=== PATIENT | female | born 1960 | race Caucasian/White ===

== ENCOUNTER 2017-05-26 20:19 | Inpatient (IN) | payer MEDICARE, MEDICAID, SELFPAY ==
[2017-05-26 20:20] VITALS: BP 161/93; PULSE 98; RESP 16; TEMP 36.3; O2SAT 100; BMI 43.4
[2017-05-26 22:51] LABS: Absolute Lymphocyte Count 0.64 X10^3/ul (0.83-4.51); Absolute Neutrophil Count 6.9 X10^3/uL (2.0-7.7); Basophil# 0.01 X10^3/uL; Basophil% 0.1 % (0-1); Eosinophil# 0.05 X10^3/uL; Eosinophils% 0.6 % (0-5); Hematocrit 38.6 % (37-47); Hemoglobin 12.4 g/dl (12.0-15.0); Lymphocyte # 0.64 X10^3/ul (4.0); Lymphocyte % 7.9 % (19-41); Mean Corp Hgb Conc 32.1 g/gl (32-36); Mean Corpuscular Hgb 28.6 pg (27.0-32.0); Mean Corpuscular Volume 88.9 fL (81-99); Mean Platelet Vol. 10.5 fl (6.2-12.0); Monocyte# 0.45 X10^3/uL; Monocyte% 5.6 % (0-10); Neutrophil # 6.92 X10^3/uL (2.7-7.7); Neutrophil % 85.7 % (47-70); POSITIVE COUNT NO; POSITIVE DIFFERENTIAL NO; POSITIVE MORPHOLOGY NO; Platelet Count 312 K/mm3 (150-450); RBC Distribution Width CV 14.8 % (11.6-14.6); Red Blood Count 4.34 M/mm3 (4.2-5.4); White Blood Count 8.1 K/mm3 (4.4-11.0)
[2017-05-26] MEDS: Ondansetron 4 MG/2 ML Vial IV (22:52)
[2017-05-26] MEDS: 0.9% Normal Saline 1,000 ML 1000 ML IV (22:52)
[2017-05-26 23:13] LABS: Mucous, Urine 0 SEEN /hpf (<or=2+); Red Blood Cells-Urine 0 SEEN /hpf (0-5)
--- NOTE | 2017-05-26 23:15 | RAD_ITS ---
STUDY: X-RAY - ACUTE ABDOMINAL SERIES REASON FOR EXAM: Female, 56 years old. Abdominal pain TECHNIQUE: Single view of the chest. Supine, 7 view(s) of the abdomen were obtained. COMPARISON: None. FINDINGS: The lungs are clear and expanded. Normal size heart. Normal mediastinum and goran. Normal visualized pulmonary arteries. Normal visualized aortic arch and descending thoracic aorta. There is a loop of distended small bowel in the left mid abdominal area. Possible 3 cm calcific density in the lateral right upper quadrant over the right renal shadow. Bilateral hip prosthesis. RAD/Acute Abdomen Inc Chest IMPRESSION: Distended loop of small bowel in the left mid abdominal area. This may be a focal ileus. Follow-up is needed. Possible calcific density over the right renal shadow in the right upper quadrant. Electronically Signed: Peter Esteban DO at 23:45 EST Tel [phone], Service support ,
[2017-05-26 23:19] LABS: AST(SGOT) 14 U/L (15-37); Alanine Aminotransfer ALT/SGPT 12 U/L (13-56); Albumin, Serum 3.6 g/dL (3.2-5.0); Alkaline Phosphatase 183 U/L (45-117); Anion Gap 8 (5-15); BUN 9 mg/dL (7-18); BUN/Creat Ratio 12.1 RATIO (10-20); Bilirubin, Direct 0.14 mg/dL (0.00-0.30); Calcium,Total 8.9 mg/dL (8.5-10.1); Chloride 106 mmol/L (98-107); Creatinine, Serum 0.74 mg/dL (0.55-1.02); EST Glomerular Filtration Rate 86 mL/min (>60); Est Glom Filt Rate - Afr Amer 104 mL/min (>60); Estimated Creatinine Clearance 93.98 ml/min; Globulin 3.9 g/dL (2.2-4.2); Glucose 106 mg/dL (74-106); Lipase 59 U/L (73-393); Potassium 4.1 mmol/L (3.5-5.1); Protein, Total 7.5 g/dL (6.4-8.2); Sodium Level 140 mmol/L (136-145)
[2017-05-26 23:22] VITALS: RESP 17
--- NOTE | 2017-05-26 23:26 | ED.VISSUMM ---
- ER Visit Summary Date of Service: 05/26/17 Chief Complaint: Abdominal pain History of Present Illness: The patient is a [address] Neville Crowder III. She reports that she has abdominal pain that began today. It is a continuous sharp, stabbing pain that is 10 out of 10 at worst and 4 out of 10 currently. It is relieved by vomiting and worsened by nothing. She reports that she is vomited 3 times. No blood or emesis. She said one episode of diarrhea this morning. She reports she had a normal bowel movement this afternoon. No blood in her stools or black tarry stools. She has had decreased flatus. No dysuria or frequency. States she has had similar symptoms previously with small bowel obstruction. Patient reports that she has a history of an infected knee replacement and has been on doxycycline for the past 2 months. Physical Examination: Vitals: Stable. Afebrile. General: Well-nourished and well-developed. Head: Normocephalic atraumatic. Neck: Supple, no lymphadenopathy. No JVD. Nontender. Cardiovascular: Regular rate and rhythm. No murmurs. Respiratory: No respiratory distress. Clear to auscultation bilaterally. Abdominal: Soft, mild periumbilical tenderness to palpation, nondistended, hypoactive bowel sounds. No guarding, rebound, or peritoneal signs. No pain in the right upper or right lower quadrant specifically. Back: Nontender. Extremities: Nontender, no edema. Skin: Normal color, no rash. Neurologic: Alert and oriented ?3. Cranial nerves II through XII are intact. Normal strength and sensation. Psych: Normal affect. Test Results: CBC is remarkable for segment neutrophils of 86 leukocytes of 8. Chem-7 is normal. LFTs marked for alk phos of 183, ALT of 14, AST of 12. Lipase is normal. Three-view of the abdomen shows a distended loop of small bowel in the left mid abdomen question a focal ileus. Because of this a CT was obtained. IMPRESSION: Dilated fluid-filled small bowel loops noted with partial fecalization of the small bowel loops and collapse of the distal loops with a small amount of fluid in the small bowel mesentery as well as interloop fluid. Small bowel obstruction is a diagnostic consideration. Emergency Department Course and Treatment: Patient refused pain medications. She was given a dose of Zofran here and is resting comfortably. She refused an NG tube. Treatment Plan: The patient was discussed with Dr. Wallace. She will be admitted to the hospital for further evaluation and treatment. Disposition: Admitted in stable condition. Impression: 1. Small bowel obstruction. This note was generated with [employer] dictation software. It may contain incorrect words, spelling, and punctuation that were not noted in review of the chart prior to signing ED Disposition - Plan for ED Patient: Chief Complaint: Abd Pain Referrals: Neville Crowder III, MD [Primary Care Provider] -
[2017-05-26 23:46] LABS: Color, Urine Yellow (Yellow); Glucose, Dipstick Normal (Normal); Ketone-Dipstick 50 mg/dl (Negative); Leukocyte Esterase-Dipstick 25 /ul (Negative); Nitrite-Dipstick Negative (Negative); Occult Blood-Urine Negative /ul (Negative); Protein-Dipstick 15 mg/dl (Negative); Urine Bilirubin Dipstick Negative (Negative); Urine Clarity Clear (Clear); Urine Urobilinogen Normal (Normal)
[2017-05-26 23:52] LABS: Bacteria RARE /hpf (None Seen); Squamous Epithelial Cells - UA 0-5 SEEN /hpf (5-10); White Blood Cells 0-5 SEEN /hpf (0-5)
[2017-05-27] VITALS (7 sets, daily range): BP systolic 107–148; BP diastolic 65–82; PULSE 84–96; RESP 16–18; TEMP 36.6–37; O2SAT 97–99; BMI 42.9
[2017-05-27] MEDS: Ondansetron 4 MG/2 ML Vial IV ×2 (01:41→09:35)
--- NOTE | 2017-05-27 02:19 | PCM.HP.STD ---
Problem List (1) PERIPROSTETIC KNEE INFECTION Status: Chronic Comment: PSEUDOMONAS (2) Depression Status: Chronic (3) Osteoarthritis Status: Chronic (4) Status post bilateral knee replacements Status: Chronic (5) Venous insufficiency Status: Chronic (6) Morbid obesity Status: Chronic (7) Status post bilateral hip replacements Status: Chronic History of Present Illness Date of Admission: 05/27/17 Chief Complaint: Abdominal pain. The patient is a 56 year old F with past medical history as mentioned above presented to the emergency room because of abdominal pain. Her symptoms started today with mid abdominal pain, sharp pain, intermittent, 10 out of 10 in severity, not radiating, associated with nausea and vomiting and without aggravating or relieving factors. She reported mild diarrhea, couple of times today. She denies constipation. She has been passing flatus. She has a history of hernia repair last year and she had one episode of bowel obstruction after surgery. In the emergency room, initial blood pressure was slightly elevated but improved, other vital signs are stable. Routine blood work was unremarkable. LFT revealed slightly elevated alkaline phosphatase, otherwise normal. Lipase was normal. Urinalysis revealed no evidence of UTI. X-ray abdomen revealed distended loops of small bowel. CT scan abdomen and pelvis without contrast revealed findings consistent with small bowel obstruction. She is being admitted for acute small bowel obstruction Past Medical History Past Medical History (Chronic Problems): Chronic Problems Insomnia (Chronic) PERIPROSTETIC KNEE INFECTION (Chronic) PSEUDOMONAS Depression (Chronic) Osteoarthritis (Chronic) Status post bilateral knee replacements (Chronic) Venous insufficiency (Chronic) Morbid obesity (Chronic) Status post bilateral hip replacements (Chronic) Allergies No Known Allergies Allergy (Verified 05/26/17 20:23) Home Medications: Ambulatory Orders Medication Instructions Recorded Fluoxetine [Prozac] 20 mg PO DAILY 11/22/16 BuPROPion (XL) [Wellbutrin Xl] 150 mg PO DAILY 01/12/17 Cyclobenzaprine [Flexeril] 10 mg PO TID PRN PRN tablet 01/12/17 Furosemide [Lasix] 20 mg PO DAILY PRN 03/27/17 Iron Polysaccharide Complex 150 mg PO DAILYCM 03/27/17 [Ferrex 150] Menthol/Lanolin/Calamine/Znox 1 applic TOPICAL TID 03/27/17 [Calmoseptine Ointment] Temazepam [Restoril] 15 mg PO QHS PRN PRN 03/27/17 Doxycycline 100 mg PO BID 30 Days #0 capsule 04/12/17 Surgical History: total hip arthroplasty - Bilateral., total knee arthroplasty - Bilateral., - - R ankle ORIF, 2 C-sections, tubal ligation, on initial laparoscopic incisional hernia repair, recurrent open complex hernia repair with removal of previous mesh and partial omentectomy, Explant right total knee with placement of cement spacer. 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 Smoking Status: Never smoker Alcohol: None Drugs: None - *Family History Maternal History Items: - - thyroid disease Paternal History Items: Heart Disease Review of Systems Constitutional: Denies: Anorexia, Chills, Fever, Weakness Eyes: Denies: Blurred vision, Double vision, Drainage, Redness HEENT: Denies: Difficulty Hearing, Ear Pain, Eye Pain, Nasal Congestion, Sore Throat Cardiovascular: Denies: Chest Pain, Chest Pressure, Chest Tightness, Edema, Heaviness, Palpitations, Syncope Respiratory: Denies: Cough, Pleuritic Pain, Shortness of Breath, Sputum production, Wheezing Gastrointestinal: Reports: Abdominal Pain, Diarrhea, Nausea, Vomiting. Denies: Constipation, Hematochezia, Melena Genitourinary: Denies: Dysuria, Frequency, Hematuria Musculoskeletal: Denies: Arm Pain, Back Pain, Foot Pain Skin: Denies: Dryness, Rash Neurological: Denies: Balance problems, Double vision, Change in Speech, Slurred speech, Confusion, Headaches, Incoordination Psychiatric: Reports: Depression. Denies: Anxiety Endocrine: Denies: Change in Body Habitus VTE Information - Inpt Only VTE Present on Admission: No VTE Mechan Device Prophylaxis: None VTE Pharm Prophylaxis ordered?: Yes - Physical Exam General: Alert, Oriented x3, Cooperative HEENT: Atraumatic, PERRLA, EOMI Oral: Moist Mucosa, No Gingival or Mucosal Lesions/ Ulcerations Neck: Supple, No JVD, Negative Carotid Bruits, Trachea Midline, Thyroid Normal Size and Texture Lungs: Clear to auscultation, Normal air movement, No rhonchi, No wheeze, No rales Cardiovascular: Regular rate, Regular Rhythm, Normal S1, Normal S2, PMI Normal Abdomen: Soft, Non Tender, No Hepato-splenomegaly, Hypoactive Bowel Sounds, Distended, Obese Extremities: No clubbing, No cyanosis, No edema Skin: No rashes, No breakdown Lymphatic: No Cervical, Supraclavicular, or Inguinal Adenopathy Neurological: Cranial nerves II-XII grossly intact, Motor Exam 5/5 strength throughout Psych/Mental Status: Flat Affect, Alert and oriented to time, place, person, mood and affect Vital Signs Temp Pulse Resp BP Pulse Ox 97.3 F L 95 17 148/82 H 97 05/26/17 20:20 05/27/17 01:57 05/27/17 01:57 05/27/17 01:57 05/27/17 01:57 Laboratory Tests 05/26/17 05/26/17 05/26/17 Range/Units 23:05 22:10 22:10 WBC 8.1 (4.4-11.0) K/mm3 RBC 4.34 (4.2-5.4) M/mm3 Hgb 12.4 (12.0-15.0) g/dl Hct 38.6 (37-47) % MCV 88.9 (81-99) fL MCH 28.6 (27.0-32.0) pg MCHC 32.1 (32-36) g/gl RDW 14.8 H (11.6-14.6) % RDW Differential 48.0 H (35.1-43.9) fl Plt Count 312 (150-450) K/mm3 MPV 10.5 (6.2-12.0) fl Immature Gran % (Auto) 0.100 (0.0-0.9) % Neut % (Auto) 85.7 H (47-70) % Lymph % (Auto) 7.9 L (19-41) % [place] % (Auto) 5.6 (0-10) % Eos % (Auto) 0.6 (0-5) % Baso % (Auto) 0.1 (0-1) % Absolute Neuts (auto) 6.9 (2.0-7.7) X10^3/uL Absolute Lymphs (auto) 0.64 L (0.83-4.51) X10^3/ul Total Counted Not Reportable Sodium 140 (136-145) mmol/L Potassium 4.1 (3.5-5.1) mmol/L Chloride 106 (98-107) mmol/L Carbon Dioxide 26.0 (21.0-32.0) mmol/L Anion Gap 8 (5-15) BUN 9 (7-18) mg/dL Creatinine 0.74 (0.55-1.02) mg/dL Estim Creat Clear Calc 93.98 ml/min Est GFR (MDRD) Af Amer 104 (>60) mL/min Est GFR (MDRD) Non-Af 86 (>60) mL/min BUN/Creatinine Ratio 12.1 (10-20) RATIO Glucose 106 (74-106) mg/dL Calcium 8.9 (8.5-10.1) mg/dL Total Bilirubin 0.60 (0.20-1.00) mg/dL Direct Bilirubin 0.14 (0.00-0.30) mg/dL AST 14 L (15-37) U/L ALT 12 L (13-56) U/L Alkaline Phosphatase 183 H (45-117) U/L Total Protein 7.5 (6.4-8.2) g/dL Albumin 3.6 (3.2-5.0) g/dL Globulin 3.9 (2.2-4.2) g/dL Lipase 59 L (73-393) U/L Urine Color Yellow (Yellow) Urine Clarity Clear (Clear) Urine pH 7.0 (5.0 - 8.0) Ur Specific [place] 1.010 (1.002-1.030) Urine Protein 15 H (Negative) mg/dl Urine Glucose (UA) Normal (Normal) mg/dl Urine Ketones 50 H (Negative) mg/dl Urine Occult Blood Negative (Negative) /ul Urine Nitrite Negative (Negative) Urine Bilirubin Negative (Negative) mg/dL Urine Urobilinogen Normal (Normal) mg/dl Ur Leukocyte Esterase 25 H (Negative) /ul Urine RBC 0 SEEN (0-5) /hpf Urine WBC 0-5 SEEN (0-5) /hpf Ur Squamous Epith Cells 0-5 SEEN (5-10) /hpf Urine Bacteria RARE (None Seen) /hpf Urine Mucus 0 SEEN (<or=2+) /hpf Clinical Impression(s) from Imaging Studies Acute Abdomen Series 05/26/17 23:15 IMPRESSION: Distended loop of small bowel in the left mid abdominal area. This may be a focal ileus. Follow-up is needed. Possible calcific density over the right renal shadow in the right upper quadrant. Electronically Signed: Peter Esteban DO at 23:45 EST Tel [phone], Service support , Abdomen/Pelvis CT 05/27/17 23:54 ADDENDUM: 05/27/17 0059 Assessment/Plan This is a 56 years old female patient presented to the medicine because of abdominal pain with nausea and vomiting, found to have small bowel obstruction on CT scan abdomen and pelvis. #1 small bowel obstruction: In context of history of hernia repair last year which followed by bowel obstruction ?1. This is likely because of adhesions. CT scan abdomen and pelvis reviewed as well as x-ray abdomen. Vital signs are stable. Serum electrolytes are unremarkable. Plan: Admit to [facility] floor, keep on n.p.o., IV fluids, IV antiemetics, replace electrolytes as appropriate, repeat CMP tomorrow morning, general surgery consult. Patient refused narcotics for pain control. 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 Plan to continue doxycycline. #3 osteoarthritis: Tylenol as needed. #4 depression: Continue Wellbutrin. #6 DVT prophylaxis: Subcu Lovenox. This note was generated with [employer] dictation software. It may contain incorrect words, spelling, and punctuation that were not noted in checking the note before signing. Code Visit Inpatient E&M: 70058 Init Hosp L3
--- NOTE | 2017-05-27 02:28 | HP.PCM_ITS ---
Problem List (1) PERIPROSTETIC KNEE INFECTION Status: Chronic Comment: PSEUDOMONAS (2) Depression Status: Chronic (3) Osteoarthritis Status: Chronic (4) Status post bilateral knee replacements Status: Chronic (5) Venous insufficiency Status: Chronic (6) Morbid obesity Status: Chronic (7) Status post bilateral hip replacements Status: Chronic History of Present Illness Date of Admission: 05/27/17 Chief Complaint: Abdominal pain. The patient is a 56 year old F with past medical history as mentioned above presented to the emergency room because of abdominal pain. Her symptoms started today with mid abdominal pain, sharp pain, intermittent, 10 out of 10 in severity, not radiating, associated with nausea and vomiting and without aggravating or relieving factors. She reported mild diarrhea, couple of times today. She denies constipation. She has been passing flatus. She has a history of hernia repair last year and she had one episode of bowel obstruction after surgery. In the emergency room, initial blood pressure was slightly elevated but improved, other vital signs are stable. Routine blood work was unremarkable. LFT revealed slightly elevated alkaline phosphatase, otherwise normal. Lipase was normal. Urinalysis revealed no evidence of UTI. X-ray abdomen revealed distended loops of small bowel. CT scan abdomen and pelvis without contrast revealed findings consistent with small bowel obstruction. She is being admitted for acute small bowel obstruction Past Medical History Past Medical History (Chronic Problems): Chronic Problems Insomnia (Chronic) PERIPROSTETIC KNEE INFECTION (Chronic) PSEUDOMONAS Depression (Chronic) Osteoarthritis (Chronic) Status post bilateral knee replacements (Chronic) Venous insufficiency (Chronic) Morbid obesity (Chronic) Status post bilateral hip replacements (Chronic) Allergies No Known Allergies Allergy (Verified 05/26/17 20:23) Home Medications: Ambulatory Orders Medication Instructions Recorded Fluoxetine [Prozac] 20 mg PO DAILY 11/22/16 BuPROPion (XL) [Wellbutrin Xl] 150 mg PO DAILY 01/12/17 Cyclobenzaprine [Flexeril] 10 mg PO TID PRN PRN tablet 01/12/17 Furosemide [Lasix] 20 mg PO DAILY PRN 03/27/17 Iron Polysaccharide Complex 150 mg PO DAILYCM 03/27/17 [Ferrex 150] Menthol/Lanolin/Calamine/Znox 1 applic TOPICAL TID 03/27/17 [Calmoseptine Ointment] Temazepam [Restoril] 15 mg PO QHS PRN PRN 03/27/17 Doxycycline 100 mg PO BID 30 Days #0 capsule 04/12/17 Surgical History: total hip arthroplasty - Bilateral., total knee arthroplasty - Bilateral., - - R ankle ORIF, 2 C-sections, tubal ligation, on initial laparoscopic incisional hernia repair, recurrent open complex hernia repair with removal of previous mesh and partial omentectomy, Explant right total knee with placement of cement spacer. Psychiatric History: Anxiety, Depression [employer] History: No pertinent [employer] history Smoking Status: Never smoker Alcohol: None Drugs: None - *Family History Maternal History Items: - - thyroid disease Paternal History Items: Heart Disease Review of Systems Constitutional: Denies: Anorexia, Chills, Fever, Weakness Eyes: Denies: Blurred vision, Double vision, Drainage, Redness HEENT: Denies: Difficulty Hearing, Ear Pain, Eye Pain, Nasal Congestion, Sore Throat Cardiovascular: Denies: Chest Pain, Chest Pressure, Chest Tightness, Edema, Heaviness, Palpitations, Syncope Respiratory: Denies: Cough, Pleuritic Pain, Shortness of Breath, Sputum production, Wheezing Gastrointestinal: Reports: Abdominal Pain, Diarrhea, Nausea, Vomiting. Denies: Constipation, Hematochezia, Melena Genitourinary: Denies: Dysuria, Frequency, Hematuria Musculoskeletal: Denies: Arm Pain, Back Pain, Foot Pain Skin: Denies: Dryness, Rash Neurological: Denies: Balance problems, Double vision, Change in Speech, Slurred speech, Confusion, Headaches, Incoordination Psychiatric: Reports: Depression. Denies: Anxiety Endocrine: Denies: Change in Body Habitus VTE Information - Inpt Only VTE Present on Admission: No VTE Mechan Device Prophylaxis: None VTE Pharm Prophylaxis ordered?: Yes - Physical Exam General: Alert, Oriented x3, Cooperative HEENT: Atraumatic, PERRLA, EOMI Oral: Moist Mucosa, No Gingival or Mucosal Lesions/ Ulcerations Neck: Supple, No JVD, Negative Carotid Bruits, Trachea Midline, Thyroid Normal Size and Texture Lungs: Clear to auscultation, Normal air movement, No rhonchi, No wheeze, No rales Cardiovascular: Regular rate, Regular Rhythm, Normal S1, Normal S2, PMI Normal Abdomen: Soft, Non Tender, No Hepato-splenomegaly, Hypoactive Bowel Sounds, Distended, Obese Extremities: No clubbing, No cyanosis, No edema Skin: No rashes, No breakdown Lymphatic: No Cervical, Supraclavicular, or Inguinal Adenopathy Neurological: Cranial nerves II-XII grossly intact, Motor Exam 5/5 strength throughout Psych/Mental Status: Flat Affect, Alert and oriented to time, place, person, mood and affect Vital Signs Temp Pulse Resp BP Pulse Ox 97.3 F L 95 17 148/82 H 97 05/26/17 20:20 05/27/17 01:57 05/27/17 01:57 05/27/17 01:57 05/27/17 01:57 Laboratory Tests 3 05/26/17 05/26/17 05/26/17 Range/Units 23:05 22:10 22:10 WBC 8.1 (4.4-11.0) K/mm3 RBC 4.34 (4.2-5.4) M/mm3 Hgb 12.4 (12.0-15.0) g/dl Hct 38.6 (37-47) % MCV 88.9 (81-99) fL MCH 28.6 (27.0-32.0) pg MCHC 32.1 (32-36) g/gl RDW 14.8 H (11.6-14.6) % RDW Differential 48.0 H (35.1-43.9) fl Plt Count 312 (150-450) K/mm3 MPV 10.5 (6.2-12.0) fl Immature Gran % (Auto) 0.100 (0.0-0.9) % Neut % (Auto) 85.7 H (47-70) % Lymph % (Auto) 7.9 L (19-41) % [place] % (Auto) 5.6 (0-10) % Eos % (Auto) 0.6 (0-5) % Baso % (Auto) 0.1 (0-1) % Absolute Neuts (auto) 6.9 (2.0-7.7) X10^3/uL Absolute Lymphs (auto) 0.64 L (0.83-4.51) X10^3/ul Total Counted Not Reportable Sodium 140 (136-145) mmol/L Potassium 4.1 (3.5-5.1) mmol/L Chloride 106 (98-107) mmol/L Carbon Dioxide 26.0 (21.0-32.0) mmol/L Anion Gap 8 (5-15) BUN 9 (7-18) mg/dL Creatinine 0.74 (0.55-1.02) mg/dL Estim Creat Clear Calc 93.98 ml/min Est GFR (MDRD) Af Amer 104 (>60) mL/min Est GFR (MDRD) Non-Af 86 (>60) mL/min BUN/Creatinine Ratio 12.1 (10-20) RATIO Glucose 106 (74-106) mg/dL Calcium 8.9 (8.5-10.1) mg/dL Total Bilirubin 0.60 (0.20-1.00) mg/dL Direct Bilirubin 0.14 (0.00-0.30) mg/dL AST 14 L (15-37) U/L ALT 12 L (13-56) U/L Alkaline Phosphatase 183 H (45-117) U/L Total Protein 7.5 (6.4-8.2) g/dL Albumin 3.6 (3.2-5.0) g/dL Globulin 3.9 (2.2-4.2) g/dL Lipase 59 L (73-393) U/L Urine Color Yellow (Yellow) Urine Clarity Clear (Clear) Urine pH 7.0 (5.0 - 8.0) Ur Specific [place] 1.010 (1.002-1.030) Urine Protein 15 H (Negative) mg/dl Urine Glucose (UA) Normal (Normal) mg/dl Urine Ketones 50 H (Negative) mg/dl Urine Occult Blood Negative (Negative) /ul Urine Nitrite Negative (Negative) Urine Bilirubin Negative (Negative) mg/dL Urine Urobilinogen Normal (Normal) mg/dl Ur Leukocyte Esterase 25 H (Negative) /ul Urine RBC 0 SEEN (0-5) /hpf Urine WBC 0-5 SEEN (0-5) /hpf Ur Squamous Epith Cells 0-5 SEEN (5-10) /hpf Urine Bacteria RARE (None Seen) /hpf Urine Mucus 0 SEEN (<or=2+) /hpf Clinical Impression(s) from Imaging Studies Acute Abdomen Series 05/26/17 23:15 IMPRESSION: Distended loop of small bowel in the left mid abdominal area. This may be a focal ileus. Follow-up is needed. Possible calcific density over the right renal shadow in the right upper quadrant. Electronically Signed: Peter Esteban DO at 23:45 EST Tel [phone], Service support , Abdomen/Pelvis CT 05/27/17 23:54 ADDENDUM: 05/27/17 0059 Assessment/Plan This is a 56 years old female patient presented to the medicine because of abdominal pain with nausea and vomiting, found to have small bowel obstruction on CT scan abdomen and pelvis. #1 small bowel obstruction: In context of history of hernia repair last year which followed by bowel obstruction ?1. This is likely because of adhesions. CT scan abdomen and pelvis reviewed as well as x-ray abdomen. Vital signs are stable. Serum electrolytes are unremarkable. Plan: Admit to [facility] floor, keep on n.p.o., IV fluids, IV antiemetics, replace electrolytes as appropriate, repeat CMP tomorrow morning, general surgery consult. Patient refused narcotics for pain control. 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 Plan to continue doxycycline. #3 osteoarthritis: Tylenol as needed. #4 depression: Continue Wellbutrin. #6 DVT prophylaxis: Subcu Lovenox. This note was generated with [employer] dictation software. It may contain incorrect words, spelling, and punctuation that were not noted in checking the note before signing. Code Visit Inpatient E&M: 67582 Init Hosp L3
[2017-05-27] MEDS: 0.9% Normal Saline 1,000 ML 100 ML IV ×3 (02:54→23:54)
[2017-05-27] MEDS: Enoxaparin 40 MG/0.4 ML Syringe SC (07:00)
--- NOTE | 2017-05-27 08:31 | CT_ITS ---
STUDY: CT ABDOMEN AND PELVIS WITH CONTRAST REASON FOR EXAM: Female, 56 years old. Mid abdominal pain with nausea and vomiting. History of small bowel obstruction. RADIATION DOSAGE (If Supplied By Facility): CTDIvol = ( 22.90 ) mGy, DLP = ( 1659.36 ) mGycm TECHNIQUE: Transaxial images were obtained from the dome of the diaphragm to the symphysis pubis with oral contrast. 100mL ml of Isovue 300 contrast was administered. Sagittal and coronal images were reconstructed. Individualized dose optimization techniques were used for this CT. COMPARISON: Comparison is made with prior examination done earlier in the day. FINDINGS: Minimal degree of bibasilar linear atelectasis. Focal calcified right anterior pleural plaque. Stable trace pericardial fluid. Normal liver. Small amount of perihepatic fluid. I suspect tiny layering gallstones along the dependent wall of the gallbladder lumen. Normal spleen. Normal pancreas. Normal bilateral adrenal glands. Normal right kidney. Normal left kidney. There is a small hiatal hernia. There is evidence of fluid filled mild distention of the small bowel. The transition point appears to be in the distal ileum. There are multiple colonic diverticula consistent with diverticulosis. There is evidence of edematous changes of the right hemicolon with irregular mural thickening. The appendix is visualized and appears normal. Normal abdominal aorta. Normal inferior vena cava. Normal retroperitoneum. Normal urinary bladder. Normal abdominal wall. There are diffuse degenerative changes of the visualized lumbar spine. Bilateral total hip replacement. CT/Abdomen/Pelvis WITH Contrast IMPRESSION: Stable appearance of the dilated small bowel with transition point in the region of the distal ileum. There is evidence of thickening of the right hemicolon with findings suggestive of a colitis. Small amount of perihepatic fluid. Electronically Signed: Sher Gu MD at 11:39 EST Tel [phone], Service support ,
[2017-05-27] MEDS: FLUoxetine 20 MG Capsule PO (08:37)
[2017-05-27] MEDS: Iron Polysaccharide Complex 150 MG CAPSULE PO (08:37)
[2017-05-27] MEDS: Doxycycline 100 MG CAPSULE PO ×2 (08:37→22:46)
[2017-05-27] MEDS: 0.9% NaCl Peripheral Flush Adult/Peds IV ×2 (09:35→11:40)
[2017-05-27] MEDS: Acetaminophen 325 MG Tablet 650 MG PO ×2 (11:43→22:46)
--- NOTE | 2017-05-27 16:10 | PCM.PN.BLA ---
Progress Note The patient was admitted earlier today by Dr. Jones and I reviewed his H&P. I also saw the patient, evaluated her and obtained relevant history, performed a clinical exam reviewed diagnostic data. This is a 56 years old female patient presented to the ED because of abdominal pain with nausea and vomiting, she is found to have small bowel obstruction on CT scan abdomen and pelvis. she is Improving, she is to undergo small bowel series today.
--- NOTE | 2017-05-27 18:28 | PCM.CONS.GEN ---
Problem List (1) Small bowel obstruction due to adhesions Status: Acute Reason for Consult Date of Consultation: 05/27/17 History of Present Illness: The patient is a 56 year old F who was admitted to the [facility] on May 27, 2017 with findings consistent with small bowel obstruction. I have been asked by Dr. Wallace to provide surgical consultation and a electronic copy of my report will be returned to him. The patient presents with acute onset of severe crampy abdominal pain. She has had some nausea and vomiting. This was similar to an episode approximately 1 year ago when she was admitted with a partial small bowel obstruction. Her previous history is notable for an approximately 2009 having had a laparoscopic ventral hernia repair performed at [facility]. The patient then states since that time she had recurrence of her hernia and that Dr. Wilde perform an open repair with placement of mesh. The patient was admitted last year with a small bowel obstruction but that resolved conservatively. Unfortunately the patient has had bilateral hip and knee procedures most recently with a Pseudomonas right knee infection that required treatment with placement of a suture. She finally in March had her right knee re-replaced. She denies acute deep venous thrombosis. She had a noncontrasted CT on presentation and then a CT was repeated. This demonstrates some mild ascitic fluid around the liver. She has got partial small bowel obstruction with a transition point in the distal ileum. It is of note that subsequent to the CT with contrast that she had earlier today she had several liquid stools and now she is absolutely completely pain-free. She has no current concerns. Past Medical History Past Medical History (Chronic Problems): Chronic Problems Insomnia (Chronic) PERIPROSTETIC KNEE INFECTION (Chronic) PSEUDOMONAS Depression (Chronic) Osteoarthritis (Chronic) Status post bilateral knee replacements (Chronic) Venous insufficiency (Chronic) Morbid obesity (Chronic) Status post bilateral hip replacements (Chronic) Allergies No Known Allergies Allergy (Verified 05/26/17 20:23) Home Medications: Ambulatory Orders Medication Instructions Recorded Fluoxetine [Prozac] 20 mg PO DAILY 11/22/16 BuPROPion (XL) [Wellbutrin Xl] 150 mg PO DAILY 01/12/17 Cyclobenzaprine [Flexeril] 10 mg PO TID PRN PRN tablet 01/12/17 Furosemide [Lasix] 20 mg PO DAILY PRN 03/27/17 Iron Polysaccharide Complex 150 mg PO DAILYCM 03/27/17 [Ferrex 150] Menthol/Lanolin/Calamine/Znox 1 applic TOPICAL TID 03/27/17 [Calmoseptine Ointment] Temazepam [Restoril] 15 mg PO QHS PRN PRN 03/27/17 Doxycycline 100 mg PO BID 30 Days #0 capsule 04/12/17 Surgical History: total hip arthroplasty - Bilateral., total knee arthroplasty - Bilateral., - - R ankle ORIF, 2 C-sections, tubal ligation, on initial laparoscopic incisional hernia repair, recurrent open complex hernia repair with removal of previous mesh and partial omentectomy, Explant right total knee with placement of cement spacer. Psychiatric History: Anxiety, Depression [employer] History: No pertinent [employer] history Smoking Status: Never smoker Alcohol: None Drugs: None - *Family History Maternal History Items: - - thyroid disease Paternal History Items: Heart Disease Review of Systems Constitutional: Denies: Anorexia Eyes: Denies: Blurred vision HEENT: Denies: Difficulty Hearing Cardiovascular: Denies: Chest Pain Respiratory: Denies: Cough Gastrointestinal: Denies: Abdominal Pain Genitourinary: Denies: Dysuria Neurological: Denies: Change in Speech Patient Problems: Active and Suspected Problems Small bowel obstruction due to adhesions (Acute) - Physical Exam General: Alert, Oriented x3, Cooperative, No apparent distress HEENT: Atraumatic Oral: Moist Mucosa Neck: Supple Lungs: Clear to auscultation Cardiovascular: Regular rate Abdomen: Non Tender, Hypoactive Bowel Sounds, Distended - Well-healed vertical midline incision extending from the xiphoid to below the umbilicus Extremities: - - Tender Neurological: Cranial nerves II-XII grossly intact Vital Signs Temp Pulse Resp BP Pulse Ox 97.9 F 84 18 107/65 98 05/27/17 14:55 05/27/17 14:55 05/27/17 14:55 05/27/17 14:55 05/27/17 14:55 Oxygen Delivery Method Room Air Weight: 299 lb 2.676 oz Body Mass Index (BMI) 42.9 Intake and Output for Last 24 Hours 05/25/17 05/26/17 05/27/17 23:59 23:59 23:59 Intake Total 1406 / 1406 Output Total 400 / 400 Balance 1006 / 1006 Assessment/Plan Active and Suspected Problems Small bowel obstruction due to adhesions (Acute) I believe that the contrasted CT performed with Gastrografin likely has assisted with improvement in her partial small bowel obstruction. Clinically at the moment she has absolutely no complaints of pain. She is passing liquid stool. I recommend that we initiate clear liquids at this setting. She has had an opportunity to ask and have questions answered. She was already asking if she can go home. I will provide follow-up early in the morning. We will then advance her diet as tolerated. If she continues to make good improvement then I would think that she could be discharged. She has had 2 previous mesh repairs of ventral hernias. It is likely that her current episode of partial obstruction secondary to adhesions. No surgical intervention is anticipated at this time unless her symptoms recur or worsen. I appreciate the opportunity of assisting with her surgical care. Miguel Angel Crowder M.D., F.A.C.S.
[2017-05-27] MEDS: Temazepam 15 MG Capsule PO (22:46)
--- NOTE | 2017-05-27 23:54 | CT_ITS ---
STUDY: CT ABDOMEN AND PELVIS WITHOUT CONTRAST REASON FOR EXAM: Female, 56 years old. Mid abdominal pain, nausea and diarrhea RADIATION DOSAGE (If Supplied By Facility): CTDIvol = ( 21.37 ) mGy, DLP = ( 1126.29 ) mGycm TECHNIQUE: Transaxial images were obtained from the dome of the diaphragm to the symphysis pubis without oral contrast, and without intravenous contrast. Sagittal and coronal images were reconstructed. Individualized dose optimization techniques were used for this CT. COMPARISON: None. FINDINGS: The lung bases demonstrate no evidence for consolidation. Small pleural-based nodule in the right lower lobe noted measuring approximately 6 mm which can be assessed with dedicated chest CT. Pleural-based calcifications are also seen. There is subsegmental atelectasis in the scarring in the right lingula also seen. Small nodule in this region is not excluded. Trace amount of pericardial fluid noted. Bilateral hip prostheses. Trace amount of free fluid in the pelvis The uterus appears prominent in size not well characterized due to extensive beam hardening from patient's hip prostheses. Small hiatal hernia. Liver and spleen demonstrate no discrete mass. The pancreas are grossly within normal limits. Gallbladder is nondistended. Small gallstone versus peripheral calcifications of the gallbladder wall along the dependent segment Adrenal glands are within normal limits. Kidney appears somewhat atrophic Dilated fluid-filled small bowel loops noted with partial fecalization of the small bowel loops and collapse of the distal loops with a small amount of fluid in the small bowel mesentery as well as interloop fluid. Small bowel obstruction is a diagnostic consideration. Fibrofatty infiltration of the colonic loops noted which is nonspecific however can be seen in the setting of colitis. No free intraperitoneal air is identified. Small fat-containing umbilical hernia. Colonic diverticulosis Degenerative changes in the lumbar spine as well as the lower thoracic spine IMPRESSION: Dilated fluid-filled small bowel loops noted with partial fecalization of the small bowel loops and collapse of the distal loops with a small amount of fluid in the small bowel mesentery as well as interloop fluid. Small bowel obstruction is a diagnostic consideration. No free intraperitoneal air is identified. Incidental small lung nodules in right lower lobe which can be assessed with follow-up chest CT on a nonemergent basis. Please see above mentioned incidental findings in the body of the report N.B. : The above information has been verbally conveyed by Oscar cordoba , Covering Physician, on 05/27/2017 00:51:54 (ET). Electronically Signed: Oscar Woods, at 0:51 EST Tel , Service support , N.B. : The above information has been verbally conveyed by Oscar cordoba , Covering Physician, on 05/27/2017 00:51:54 (ET). CT/Abdomen/Pelvis without Cont
[2017-05-28 04:20] VITALS: BP 122/64; PULSE 92; RESP 16; TEMP 36.9; O2SAT 95
--- NOTE | 2017-05-28 06:03 | PCM.PN.SRG ---
Patient Problems: Active and Suspected Problems Small bowel obstruction due to adhesions (Acute) Subjective: Pt has had multiple stools yesterday No nausea or pain - Physical Exam Abdomen: Bowel Sounds Present, Soft, Non Tender Vital Signs Temp Pulse Resp BP Pulse Ox 98.4 F 92 16 122/64 H 95 05/28/17 04:20 05/28/17 04:20 05/28/17 04:20 05/28/17 04:20 05/28/17 04:20 Oxygen Delivery Method Room Air Weight: 299 lb 2.676 oz Body Mass Index (BMI) 42.9 Intake and Output for Last 24 Hours 05/26/17 05/27/17 05/28/17 23:59 23:59 23:59 Intake Total 1406 / 1406 855 / 855 Output Total 400 / 400 Balance 1006 / 1006 855 / 855 Assessment/Plan Active and Suspected Problems Small bowel obstruction due to adhesions (Acute) BS activity has returned Will advance diet Pt appears ready for discharge No surgical intervention is planned at this time
[2017-05-28] MEDS: Acetaminophen 325 MG Tablet 650 MG PO (07:11)
[2017-05-28] MEDS: Enoxaparin 40 MG/0.4 ML Syringe SC (07:12)
[2017-05-28 07:26] LABS: ALB/GLOB Ratio 0.8 RATIO (0.9-2.4); AST(SGOT) 13 U/L (15-37); Alanine Aminotransfer ALT/SGPT 9 U/L (13-56); Albumin, Serum 2.7 g/dL (3.2-5.0); Alkaline Phosphatase 127 U/L (45-117); Anion Gap 9 (5-15); BUN 5 mg/dL (7-18); BUN/Creat Ratio 6.7 RATIO (10-20); Chloride 109 mmol/L (98-107); Creatinine, Serum 0.74 mg/dL (0.55-1.02); EST Glomerular Filtration Rate 86 mL/min (>60); Est Glom Filt Rate - Afr Amer 104 mL/min (>60); Estimated Creatinine Clearance 93.98 ml/min; Globulin 3.2 g/dL (2.2-4.2); Glucose 106 mg/dL (74-106); Potassium 3.4 mmol/L (3.5-5.1); Protein, Total 5.9 g/dL (6.4-8.2); Sodium Level 142 mmol/L (136-145)
[2017-05-28 08:20] VITALS: BP 133/81; PULSE 89; RESP 16; TEMP 36.7; O2SAT 96
[2017-05-28] MEDS: Iron Polysaccharide Complex 150 MG CAPSULE PO (08:26)
[2017-05-28] MEDS: FLUoxetine 20 MG Capsule PO (08:26)
[2017-05-28] MEDS: Doxycycline 100 MG CAPSULE PO (08:26)
--- NOTE | 2017-05-28 10:36 | CASEMGMT ---
DC Plan: No dc needs identified. Plan is home. Bella BSN RN ACM
--- NOTE | 2017-05-28 12:15 | PCM.DC ---
- Discharge Diagnoses Current Active Problems: Current Active and Chronic Problems Small bowel obstruction due to adhesions (Acute) You will use the following diet at home:: Regular Discharge Activity: Return to Normal Activity Allergies/Adverse Reactions: Allergies No Known Allergies Allergy (Verified 05/26/17 20:23) Medications to take at Discharge Fluoxetine [Prozac] 20 mg PO DAILY 11/22/16 BuPROPion (XL) [Wellbutrin Xl] 150 mg PO DAILY 01/12/17 Cyclobenzaprine [Flexeril] 10 mg PO TID PRN PRN tablet 01/12/17 Furosemide [Lasix] 20 mg PO DAILY PRN 03/27/17 Iron Polysaccharide Complex [Ferrex 150] 150 mg PO DAILYCM 03/27/17 Menthol/Lanolin/Calamine/Znox [Calmoseptine Ointment] 1 applic TOPICAL TID 03/27/17 Temazepam [Restoril] 15 mg PO QHS PRN PRN 03/27/17 Primary Care Physician: Neville Crowder III, MD [Primary Care Provider] - In 1 Week Proposed Discharge Date: 05/28/17
--- NOTE | 2017-05-28 12:16 | PCM.DC.SUM ---
Discharge Date and Diagnosis Date of Admission: 05/27/17 Date of Discharge: 05/28/17 - Primary Discharge Diagnosis Active and Suspected Problems Small bowel obstruction due to adhesions (Acute) - Secondary Discharge Diagnosis Chronic Problems Insomnia (Chronic) PERIPROSTETIC KNEE INFECTION (Chronic) PSEUDOMONAS Depression (Chronic) Osteoarthritis (Chronic) Status post bilateral knee replacements (Chronic) Venous insufficiency (Chronic) Morbid obesity (Chronic) Status post bilateral hip replacements (Chronic) Hospital Course and Treatment Operations: None Summary of Care Provided: This is a 56 years old female patient presented to the ED because of abdominal pain with nausea and vomiting, she was found to have small bowel obstruction on CT scan abdomen and pelvis. She was placed on bowel rest, IV fluids and anti-emetics, his symptoms improve with these conservative management. General surgery was consulted and no further testing was recommended at this time. Her diet was advanced which she tolerated and she was then discharged home in a stable condition. Physical exam at the time of discharge; vital signs were stable. she was alert and oriented to time place and person. she did not appear to be any form of distress. S1 and S2 heard no murmur or gallop Lung exam was clear to auscultation with no adventitious sounds. Abdomen was soft nontender with normal bowel sounds. extremity exam did not reveal any edema, palpable pulses bilaterally. Neurologic exam was grossly intact. Discharge Diet: No Restrictions Discharge Activity: Return to Normal Activity Home Medications: Medications to take at Discharge Fluoxetine [Prozac] 20 mg PO DAILY 11/22/16 BuPROPion (XL) [Wellbutrin Xl] 150 mg PO DAILY 01/12/17 Cyclobenzaprine [Flexeril] 10 mg PO TID PRN PRN tablet 01/12/17 Furosemide [Lasix] 20 mg PO DAILY PRN 03/27/17 Iron Polysaccharide Complex [Ferrex 150] 150 mg PO DAILYCM 03/27/17 Menthol/Lanolin/Calamine/Znox [Calmoseptine Ointment] 1 applic TOPICAL TID 03/27/17 Temazepam [Restoril] 15 mg PO QHS PRN PRN 03/27/17 Primary Care Physician: Neville Crowder III, MD [Primary Care Provider] - In 1 Week Disposition: Home Patient Condition:: Good Meaningful Use Info Meaningful Use Diagnoses (Choose all that apply): None applicable Code Visit Inpatient E&M: 79218 Disch Hosp
== END 2017-05-28 12:51 | disposition home or self-care (01) | DRG 389 ==
LOC: ED 22:25 → MS3 05-27 02:03
PROVIDERS: Admitting Provider Hospitalist; Emergency Provider Emergency Medicine; Family Provider Family Medicine; PCP Family Medicine; Visit Provider Internal Medicine
DX: K56.51 Intestinal adhesions [bands], with partial obstruction (principal); Z68.41 Body mass index [BMI] 40.0-44.9, adult; L03.115 Cellulitis of right lower limb; E66.01 Morbid (severe) obesity due to excess calories; F32.9 Major depressive disorder, single episode, unspecified; M19.90 Unspecified osteoarthritis, unspecified site; Z96.653 Presence of artificial knee joint, bilateral; Z96.643 Presence of artificial hip joint, bilateral; I87.2 Venous insufficiency (chronic) (peripheral); G47.00 Insomnia, unspecified; B96.89 Other specified bacterial agents as the cause of diseases classified elsewhere; Z47.1 Aftercare following joint replacement surgery; Z79.899 Other long term (current) drug therapy
CPT/HCPCS: 36415; 74022; 74176; 74177; 80048; 80053; 80076; 81001; 83690; 85025; 97110; 99285; J7030; Q9967; A4216; J2405

== ENCOUNTER 2017-09-12 02:23 | Emergency (ER) | payer MEDICARE, SELFPAY ==
[2017-09-12 02:25] VITALS: BP 154/94; PULSE 84; RESP 16; TEMP 36.9; O2SAT 97; BMI 45.9
[2017-09-12 03:05] LABS: Absolute Lymphocyte Count 0.99 X10^3/ul (0.83-4.51); Absolute Neutrophil Count 4.7 X10^3/uL (2.0-7.7); Basophil# 0.01 X10^3/uL; Basophil% 0.2 % (0-1); Eosinophil# 0.12 X10^3/uL; Eosinophils% 1.9 % (0-5); Hemoglobin 10.8 g/dl (12.0-15.0); Lymphocyte # 0.99 X10^3/ul (4.0); Lymphocyte % 15.5 % (19-41); Mean Corp Hgb Conc 30.9 g/gl (32-36); Mean Corpuscular Volume 87.5 fL (81-99); Mean Platelet Vol. 10.6 fl (6.2-12.0); Monocyte# 0.61 X10^3/uL; Monocyte% 9.5 % (0-10); Neutrophil # 4.65 X10^3/uL (2.7-7.7); Neutrophil % 72.7 % (47-70); POSITIVE COUNT NO; POSITIVE DIFFERENTIAL NO; POSITIVE MORPHOLOGY NO; Platelet Count 216 K/mm3 (150-450); RBC Distribution Width CV 15.8 % (11.6-14.6); White Blood Count 6.4 K/mm3 (4.4-11.0)
[2017-09-12 03:16] LABS: Anion Gap 9 (5-15); BUN 11 mg/dL (7-18); BUN/Creat Ratio 12.1 RATIO (10-20); Calcium,Total 8.7 mg/dL (8.5-10.1); Chloride 106 mmol/L (98-107); Creatinine, Serum 0.91 mg/dL (0.55-1.02); EST Glomerular Filtration Rate 68 mL/min (>60); Est Glom Filt Rate - Afr Amer 82 mL/min (>60); Estimated Creatinine Clearance 76.42 ml/min; Glucose 98 mg/dL (74-106); Potassium 3.4 mmol/L (3.5-5.1); Sodium Level 141 mmol/L (136-145)
--- NOTE | 2017-09-12 04:37 | ED.VISSUMM ---
- ER Visit Summary Date of Service: 09/12/17 Chief Complaint: Skin rash History of Present Illness: The patient is a 56 F presenting for evaluation secondary to a skin rash. 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 Patient reports that she is on chronic doxycycline. Patient states that in the last 2 days she has noticed a rash over the dorsum of her foot. She states it does not hurt itch or burn, but she felt as if there is spreading redness going up her leg and she was concerned that she potentially was developing another infection. She denies any constitutional symptoms. Review of systems otherwise negative. Physical Examination: Patient is afebrile vital signs within normal limits. Examination of the patient's lower extremity shows a large surgical scar over the patient's anterior leg with swelling of the entirety of the leg which the patient states is chronic. There are chronic venous insufficiency changes of the skin of the lower leg with some erythema and thick gritty skin the palpation no pain. Compartments are soft. There are some petechia noted over the dorsum of the patient's foot without any evidence of underlying fluctuance induration drainage streaking or tenderness. Remainder physical otherwise unremarkable. Test Results: CBC and chemistry unremarkable Emergency Department Course and Treatment: Patient presented due to concern for infection. Given the patient's complicated infectious disease history or laboratory workup was obtained. This was found to be essentially unremarkable. Patient was given a dose of IV Unasyn in the emergency department. Given her normal vital signs and normal workup I believe that she is appropriate for outpatient treatment initially. Patient will be started on a course of Augmentin, she understands signs and symptoms which to return, she will follow-up with primary care for a wound check, and she will complete her entire course of Augmentin. Disposition: Discharge Impression: 1. Right leg cellulitis This note was generated with [employer] dictation software. It may contain incorrect words, spelling, and punctuation that were not noted in review of the chart prior to signing ED Disposition - Plan for ED Patient: Disposition: Home or Assisted Living Chief Complaint: Wound Diagnosis: Cellulitis Instructions: ED Infec Skin Cellulitis Prescriptions: Amox/Clavulanate Tablet [Augmentin Tablet] 875 mg PO Q12H #20 tab Referrals: Neville Crowder III, MD [Primary Care Provider] - 3-5 Days
[2017-09-12 04:52] VITALS: BP 119/76; PULSE 89; RESP 16; O2SAT 96
== END 2017-09-12 04:52 | disposition home or self-care (01) ==
PROVIDERS: Emergency Provider Emergency Medicine; Family Provider Family Medicine; PCP Family Medicine
DX: L03.115 Cellulitis of right lower limb (principal); B96.89 Other specified bacterial agents as the cause of diseases classified elsewhere; E66.9 Obesity, unspecified; Z68.42 Body mass index [BMI] 45.0-49.9, adult; Z79.899 Other long term (current) drug therapy
CPT/HCPCS: 80048; 85025; 96365; 99283; J7050; A4216; J3490

== ENCOUNTER 2017-09-29 15:00 | Outpatient (RCR) | payer MEDICARE, MEDICAID, SELFPAY ==
--- NOTE | 2017-04-27 12:47 | HP.PTEVAL_ITS ---
Patient's Visit Information MEGHA CIFUENTES is a 56 year old F referred to Physical Therapy by CARMELLA [email or web address].[email or web address] with a diagnosis of R TKA. Date of Evaluation: 04/27/17 Physical Therapist: Delvin Villafana PT, - Visit Plan Frequency: 2-3x /Week Duration: 4-6 Weeks Plan: R knee PROM/Mobs, R LE stretching and strengthening, balance/proprio, core , nustep, and HEP - Subjective Subjective: DOS: 04/08/17. Pt reports she had a R TKA performed for her third time. 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 Pt reports she was in major pain prior to having her TKA. Pt notes she attended the ER every other week secondary to the pain and swelling she had from the infection. Pt reports she is doing much better now. Pt feels as though she is heading in the right direction. Pt reports she just got home from the skilled nursing last thursday. Pt had PT at the skilled nursing, but not for the R LE. Pt was told not to move it for 2 weeks to allow initial healing to occur. No T or N in R LE at this time. Pt has to take pain meds to sleep through the night. Pt does live in a 2 story house, and can negtiate her stairs one step at a time. 1/10 pain at rest, 3/10 at worst (when pain meds wear off) - Pain R knee Pain Intensity (Out of 10): 1 Pain Intensity Range: 3 - Objective Girth at joint line: L knee 56 cm, R knee 62 cm. Neuro: B LE sensation is WNL to light touch. B achilles reflex= 1/3. ROM: L knee 0-105, R knee 0-19-87 degrees. MMT: L knee 5/5 throughout, R knee 3+/5. Gait: Pt ambulates with a very slow cadance and use of standard cane. - Goals Goal 1:: Decrease R knee pain x 50% to aid with sleep Goal Time Frame: 4-6 Weeks Goal 2:: Increase R knee strength x 1 grade to aid with stair negotiation Goal Time Frame: 4-6 Weeks Goal 3:: Increase R knee ROM x 20-30 degrees to aid with restoring a more normalized gait pattern Goal Time Frame: 4-6 Weeks Goal 4:: I with HEP Goal Time Frame: 4-6 Weeks - Rehabilitation Potential Physical Therapy Diagnosis: R knee pain, weakness, and limited ROM secondary to R TKA Rehabilitation Potential: Good - Anticipated Interventions Patient/Client Instruction: Educate patient on: Condition, Plan of Care For the Purpose of:: To improve self management Therapeutic Exercise to Include: Strength training, Endurance training, Balance training, Flexibilty training, Gait and locomotor training, Passive ROM, Active ROM, Dynamic Lumbar Stabilization For the Purpose of:: To decrease pain, To increase ROM, To improve muscle performance and motor function Cryotherapy (ice pack, ice massage): Yes For the Purpose of:: To decrease pain Thank you for the opportunity to evaluate your patient. For Medicare and Medicare HMO plans, please review the plan of care and approve it. It will need to be FAXED BACK to us at [phone] for Medicare purposes. Please let me know if there are questions or concerns regarding this plan of care. Physician Signature: Date:
--- NOTE | 2017-08-07 12:25 | HP.PTREVAL_ITS ---
CARMELLA Marino, It has been my pleasure to treat MEGHA CIFUENTES over the last 38 visits for R TKA. Please see the progress note below for an update on the physical therapy plan of care! Subjective: Pt reports she has no energy this date. Only minimal pain Objective/Function: MMT: Knee flex and ext= 4/5. R knee ROM: 0-5-110 degrees. Pain ranges from 2-3/10. Pt is progressing well toward Rx goals Plan Plan: Progress as tolerated. Goals Goal 1:: Decrease R knee pain x 50% to aid with sleep Goal Time Frame: 4-6 Weeks Goal Progress: Goal Met Goal 2:: Increase R knee strength x 1 grade to aid with stair negotiation Goal Time Frame: 4-6 Weeks Goal Progress: Progressing Goal 3:: Increase R knee ROM x 20-30 degrees to aid with restoring a more normalized gait pattern Goal Time Frame: 4-6 Weeks Goal Progress: Progressing Goal 4:: I with HEP Goal Time Frame: 4-6 Weeks Goal Progress: Progressing Anticipated Interventions Patient/Client Instruction: Educate patient on: Condition, Plan of Care For the Purpose of:: To improve self management Therapeutic Exercise to Include: Strength training, Endurance training, Balance training, Flexibilty training, Gait and locomotor training, Passive ROM, Active ROM, Dynamic Lumbar Stabilization For the Purpose of:: To decrease pain, To increase ROM, To improve muscle performance and motor function Cryotherapy (ice pack, ice massage): Yes For the Purpose of:: To decrease pain Please do not hesitate to contact me at [phone] by phone or Fax: if you have questions or concerns regarding this new plan of care! Sincerely, Delvin Villafana, PT,
--- NOTE | 2017-08-21 13:13 | HP.PTREVAL ---
CARMELLA Marino, It has been my pleasure to treat MEGHA CIFUENTES over the last 43 visits for R TKA. Please see the progress note below for an update on the physical therapy plan of care! Subjective: Pt reports she is really swollen today. Maybe due to the weather Objective/Function: R knee girth at joint line: 64 CM. R knee ROM: 0-5-95. R knee strength is 4-/5 throughout. Pt is showing overall improvements with ROM and strength, but still lacks functional strength at this time. Plan Plan: Cont with strengthening Goals Goal 1:: Decrease R knee pain x 50% to aid with sleep Goal Time Frame: 4-6 Weeks Goal Progress: Goal Met Goal 2:: Increase R knee strength x 1 grade to aid with stair negotiation Goal Time Frame: 4-6 Weeks Goal Progress: Progressing Goal 3:: Increase R knee ROM x 20-30 degrees to aid with restoring a more normalized gait pattern Goal Time Frame: 4-6 Weeks Goal Progress: Progressing Goal 4:: I with HEP Goal Time Frame: 4-6 Weeks Goal Progress: Progressing Anticipated Interventions Patient/Client Instruction: Educate patient on: Condition, Plan of Care For the Purpose of:: To improve self management Therapeutic Exercise to Include: Strength training, Endurance training, Balance training, Flexibilty training, Gait and locomotor training, Passive ROM, Active ROM, Dynamic Lumbar Stabilization For the Purpose of:: To decrease pain, To increase ROM, To improve muscle performance and motor function Cryotherapy (ice pack, ice massage): Yes For the Purpose of:: To decrease pain Please do not hesitate to contact me at [phone] by phone or if you have questions or concerns regarding this new plan of care! Sincerely, Delvin Villafana, PT,
--- NOTE | 2017-08-21 13:16 | HP.PTREVAL_ITS ---
CARMELLA Marino, It has been my pleasure to treat MEGHA CIFUENTES over the last 43 visits for R TKA. Please see the progress note below for an update on the physical therapy plan of care! Subjective: Pt reports she is really swollen today. Maybe due to the weather Objective/Function: R knee girth at joint line: 64 CM. R knee ROM: 0-5-95. R knee strength is 4-/5 throughout. Pt is showing overall improvements with ROM and strength, but still lacks functional strength at this time. Plan Plan: Cont with strengthening Goals Goal 1:: Decrease R knee pain x 50% to aid with sleep Goal Time Frame: 4-6 Weeks Goal Progress: Goal Met Goal 2:: Increase R knee strength x 1 grade to aid with stair negotiation Goal Time Frame: 4-6 Weeks Goal Progress: Progressing Goal 3:: Increase R knee ROM x 20-30 degrees to aid with restoring a more normalized gait pattern Goal Time Frame: 4-6 Weeks Goal Progress: Progressing Goal 4:: I with HEP Goal Time Frame: 4-6 Weeks Goal Progress: Progressing Anticipated Interventions Patient/Client Instruction: Educate patient on: Condition, Plan of Care For the Purpose of:: To improve self management Therapeutic Exercise to Include: Strength training, Endurance training, Balance training, Flexibilty training, Gait and locomotor training, Passive ROM, Active ROM, Dynamic Lumbar Stabilization For the Purpose of:: To decrease pain, To increase ROM, To improve muscle performance and motor function Cryotherapy (ice pack, ice massage): Yes For the Purpose of:: To decrease pain Please do not hesitate to contact me at [phone] by phone or Fax: if you have questions or concerns regarding this new plan of care! Sincerely, Delvin Villafana, PT,
--- NOTE | 2017-09-25 12:32 | HP.PTREVAL_ITS ---
CARMELLA Marino, It has been my pleasure to treat MEGHA CIFUENTSE over the last 58 visits for R TKA. Please see the progress note below for an update on the physical therapy plan of care! Subjective: Pt reports her knees have both been swollen more lately. Probably due to the humidity Objective/Function: R knee circumference at knee joint 58 cm. R knee MMT: ext= 4-/5, flex= 4/5. R knee ROM: 0-4-98 degrees. Pt cont to be limited with stair negotiation, prolonged ambulation, and IADL's secondary to R knee pain and stiffness. Pt is progressing with strength and PROM Plan Plan: Skilled therapy continues to be necessary secondary to pt's functional limitations with stair negotiation and IADL's. Cont to focus on strengthening of the R LE and core musculature. Goals Goal 1:: Decrease R knee pain x 50% to aid with sleep Goal Time Frame: 4-6 Weeks Goal Progress: Goal Met Goal 2:: Increase R knee strength x 1 grade to aid with stair negotiation Goal Time Frame: 4-6 Weeks Goal Progress: Progressing Goal 3:: Increase R knee ROM x 20-30 degrees to aid with restoring a more normalized gait pattern Goal Time Frame: 4-6 Weeks Goal Progress: Progressing Goal 4:: I with HEP Goal Time Frame: 4-6 Weeks Goal Progress: Progressing Anticipated Interventions Patient/Client Instruction: Educate patient on: Condition, Plan of Care For the Purpose of:: To improve self management Therapeutic Exercise to Include: Strength training, Endurance training, Balance training, Flexibilty training, Gait and locomotor training, Passive ROM, Active ROM, Dynamic Lumbar Stabilization For the Purpose of:: To decrease pain, To increase ROM, To improve muscle performance and motor function Cryotherapy (ice pack, ice massage): Yes For the Purpose of:: To decrease pain Please do not hesitate to contact me at [phone] by phone or Fax: if you have questions or concerns regarding this new plan of care! Sincerely, Delvin Villafana, PT,
--- NOTE | 2017-10-22 12:40 | HP.PT.NRP ---
HP - Discharge Summary (1) - Patient Information MEGHA CIFUENTES was seen in my office for initial evaluation on 04/27/17. The following Plan of Care was established for this patient: Initial Frequency: 2-3x /Week Initial Duration: 4-6 Weeks - Anticipated Interventions Patient/Client Instruction: Educate patient on: Condition, Plan of Care For the Purpose of:: To improve self management Therapeutic Exercise to Include: Strength training, Endurance training, Balance training, Flexibilty training, Gait and locomotor training, Passive ROM, Active ROM, Dynamic Lumbar Stabilization For the Purpose of:: To decrease pain, To increase ROM, To improve muscle performance and motor function Cryotherapy (ice pack, ice massage): Yes For the Purpose of:: To decrease pain This patient was last seen in our office . Pertinent comments regarding their Physical therapy will appear below: Pt was treated for 60 PT visits for her RTKA through the date of 09/29/17. Pt has not returned since that date, and is therefore discontinued at this time. At this point I will be discontinuing this patient from physical therapy. I would be happy to see this patient again in the future if found appropriate by the physician. Thank you! Delvin Villafana, PT,
== END 2017-09-29 19:00 | disposition home or self-care (01) ==
LOC: PT 15:00
PROVIDERS: Family Provider Family Medicine; PCP Family Medicine; Visit Provider Physician Assistant Surgical
DX: Z96.651 Presence of right artificial knee joint (principal); Z47.1 Aftercare following joint replacement surgery; L03.115 Cellulitis of right lower limb; B96.89 Other specified bacterial agents as the cause of diseases classified elsewhere; E66.9 Obesity, unspecified; Z68.42 Body mass index [BMI] 45.0-49.9, adult; Z79.899 Other long term (current) drug therapy
CPT/HCPCS: 80048; 85025; 96365; 97110; 97161; 97530; 99283; J7050; A4216; J3490

== ENCOUNTER 2018-01-02 01:04 | Emergency (ER) | payer MEDICARE, SELFPAY ==
[2018-01-02 01:05] VITALS: BP 131/81; PULSE 91; RESP 16; TEMP 37.1; O2SAT 98; BMI 44.9
--- NOTE | 2018-01-02 02:52 | ED.DCSUM_ITS ---
- ER Visit Summary Date of Service: 01/02/18 Chief Complaint: [] Lower extremity redness and possible infection History of Present Illness: The patient is a 57 F resents with redness and discomfort in her left lower leg. She noticed it about 4 hours ago. Gradual onset continuous. It feels tight throbbing and aching. She has had cellulitis in the past but in the opposite leg. She has chronic lymphedema. She is on doxycycline that she had postoperative knee infection. She supposed to take this for a year. She is supposed to take it until April. She has been taking her doxycycline. Denies any fevers or chills or injury to the leg. Physical Examination: [] Vital signs reviewed General: Well-nourished well-developed Head: Normocephalic atraumatic Eyes: Pupils equal round and reactive to light extraocular movements intact ENT: TMs clear no hemotympanum no trauma Neck: Nontender full range of motion Cardiovascular: Regular rate rhythm no murmurs normal S1-S2 Respiratory: No distress clear to auscultation bilaterally chest nontender Abdomen: Soft nontender nondistended normal bowel sounds no masses Back: Nontender no CVA tenderness Extremities: Bilateral lower extremity lymphedema right greater than left. Left lower leg has a cellulitis. It is red warm and tender. It goes from her proximal ankle to just above her left calf. Is mostly in the front. There is some slight redness in the back and laterally as well. Her foot exam is normal. Normal pulses. Neuro alert oriented cranial nerves II through XII intact normal strength sensation reflexes Test Results: [] Emergency Department Course and Treatment: [] At this time patient has a cellulitis of her left lower leg. She was given a dose of Zosyn. She will be discharged with Keflex and continue her doxycycline. This is likely Stre ptococcus related. I discussed IV antibiotics and admission. She does not want to be admitted and wants to try orals. I think this is reasonable. She is nontoxic. She will return if this worsens. I do not feel she has a DVT. This is a cellulitis Treatment Plan: [] Disposition: [] Impression: [] Left lower extremity cellulitis This note was generated with [employer] software. It may contain incorrect words, spelling, and punctuation that were not noted in review of the chart prior to signing ED Disposition - Plan for ED Patient: Chief Complaint: Cellulitis Referrals: Neville Crowder III, MD [Primary Care Provider] -
--- NOTE | 2018-01-02 02:52 | ED.DEP ---
ED Disposition - Plan for ED Patient: Disposition: Home or Assisted Living Chief Complaint: Cellulitis Instructions: Discharge Instructions for Cellulitis Prescriptions: Cephalexin [Keflex] 500 mg PO Q6 #40 cap Referrals: Neville Crowder III, MD [Primary Care Provider] -
[2018-01-02 03:04] VITALS: BP 145/76; PULSE 97; RESP 22; O2SAT 98
--- NOTE | 2018-01-02 03:04 | ED.RN ---
THIS NURSE REVIEWED D/C INSTRUCTIONS WITH PT. PT VERBALIZED UNDERSTANDING OF INSTRUCTIONS. IV D/C. IV CATHETER INTACT. PT TOLERATED WELL. PT DENIES FURTHER NEEDS OR QUESTIONS AT THIS TIME. PT AMBULATES FROM ROOM ON OWN WITHOUT ASSISTANCE FROM STAFF
== END 2018-01-02 03:06 | disposition home or self-care (01) ==
PROVIDERS: Emergency Provider Emergency Medicine; Family Provider Family Medicine; PCP Family Medicine
DX: L03.116 Cellulitis of left lower limb (principal); B96.89 Other specified bacterial agents as the cause of diseases classified elsewhere; E66.9 Obesity, unspecified; Z68.41 Body mass index [BMI] 40.0-44.9, adult; Z79.899 Other long term (current) drug therapy
CPT/HCPCS: 96365; 99282; J7050; A4216

== ENCOUNTER → 2018-08-06 11:36 | Outpatient (CLI) | payer MEDICARE, SELFPAY ==
[2018-07-20 10:35] VITALS: BMI 43.0
[2018-08-06 12:35] LABS: Erythrocyte Sedimentation Rate 15 mm/hr (0-30)
[2018-08-06 12:37] LABS: Absolute Lymphocyte Count 0.69 X10^3/ul (0.83-4.51); Absolute Neutrophil Count 2.9 X10^3/uL (2.0-7.7); Basophil# 0.01 X10^3/uL; Basophil% 0.2 % (0-1); Eosinophils% 2.5 % (0-5); Hematocrit 41.6 % (37-47); Hemoglobin 13.3 g/dl (12.0-15.0); Lymphocyte # 0.69 X10^3/ul (4.0); Lymphocyte % 17.1 % (19-41); Mean Corpuscular Hgb 29.8 pg (27.0-32.0); Mean Corpuscular Volume 93.3 fL (81-99); Mean Platelet Vol. 11.2 fl (6.2-12.0); Monocyte# 0.35 X10^3/uL; Monocyte% 8.7 % (0-10); Neutrophil # 2.87 X10^3/uL (2.7-7.7); Neutrophil % 71.3 % (47-70); Platelet Count 206 K/mm3 (150-450); RBC Distribution Width CV 14.7 % (11.6-14.6); RBC Distribution Width SD 48.5 fl (35.1-43.9); Red Blood Count 4.46 M/mm3 (4.2-5.4)
[2018-08-06 12:40] LABS: POSITIVE COUNT NO; POSITIVE DIFFERENTIAL NO; POSITIVE MORPHOLOGY NO
== END ==
LOC: LAB 11:41
PROVIDERS: Family Provider Family Medicine; PCP Family Medicine; Referring Provider Physician Assistant Surgical; Visit Provider Physician Assistant Surgical
DX: Z96.651 Presence of right artificial knee joint (principal)
CPT/HCPCS: 36415; 85025; 85652; 86140

== ENCOUNTER 2018-08-17 10:05 | Outpatient (RCR) | payer MEDICARE, SELFPAY ==
[2018-07-20 10:35] VITALS: BMI 43.0
[2018-08-17 10:56] VITALS: BP 142/84; PULSE 84; RESP 18; TEMP 36.1; BMI 44.4
--- NOTE | 2018-08-17 11:48 | HP.PCM_ITS ---
(1) Leg swelling Status: Chronic Current Visit: Yes Code(s): M79.89 - Other specified soft tissue disorders (2) Leg edema Status: Chronic Current Visit: Yes Code(s): R60.0 - Localized edema (3) History of cellulitis Status: Chronic Current Visit: No Code(s): Z87.2 - Personal history of diseases of the skin and subcutaneous tissue (4) Osteoarthritis Status: Chronic Current Visit: No Qualifiers: Osteoarthritis location: multiple joints (5) Status post bilateral knee replacements Status: Chronic Current Visit: No Code(s): Z96.653 - Presence of artificial knee joint, bilateral (6) Venous insufficiency Status: Chronic Current Visit: No (7) Morbid obesity Status: Chronic Current Visit: Yes Code(s): E66.01 - Morbid (severe) obesity due to excess calories (8) Status post bilateral hip replacements Status: Chronic Current Visit: No Code(s): Z96.643 - Presence of artificial hip joint, bilateral History of Present Illness Chief Complaint: Bilateral lower extremity swelling and edema, right greater th an left History of Wound: This is a 57-year-old morbidly obese female who presents with chronic swelling and edema in her lower extremities. The right lower extremity is more severely affected. Patient has a significant history in that she has undergone multiple orthopedic procedures in her lower extremities. She is undergone bilateral hip replacement procedures. She is undergone bilateral knee replacement procedures. 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 The patient is also undergone open reduction and internal fixation of a right ankle fracture. Thus, she has had multiple orthopedic procedures in both lower extremities, more numerous on the right. As result of her numerous procedures, and long periods of inactivity, she has gained significant amounts of weight. She suffers from bilateral lower extremity swelling and edema, which is worse on the right. She has had several episodes of cellulitis affecting her right lower extremity, treated with antibiotics. She has Velcro compression wraps, as well as mechanical pneumatic compression pumps, with which she has been only moderately compliant. She claims to sleep on a flat mattress at night. She also indicates that she leads a relatively active lifestyle. The swelling in her lower extremities is typically worse at the end of the day, and often noted after long periods of idle sitting. Past Medical History Past Medical History: Chronic Problems Leg swelling (Chronic) Leg edema (Chronic) History of cellulitis (Chronic) Insomnia (Chronic) PERIPROSTETIC KNEE INFECTION (Chronic) PSEUDOMONAS Depression (Chronic) Osteoarthritis (Chronic) Status post bilateral knee replacements (Chronic) Venous insufficiency (Chronic) Morbid obesity (Chronic) Status post bilateral hip replacements (Chronic) Past Medical History: Patient's history is negative for myocardial infarction, congestive heart failure, hypertension, cerebrovascular accident, cancer, pulmonary disease, renal disease, hyperlipidemia, and thyroid disease. She suffers from osteoarthritis and degenerative disc disease of the lumbar area. She is also morbidly obese. Surgical History: total hip arthroplasty - Bilateral., total knee arthroplasty - Bilateral., - - R ankle ORIF, 2 C-sections, tubal ligation, on initial laparoscopic incisional hernia repair, recurrent open complex hernia repair with removal of previous mesh and partial omentectomy, Explant right total knee with placement of cement spacer. The patient is a Ab0 Allergies/Adverse Reactions: Allergies No Known Allergies Allergy (Verified 07/20/18 10:50) Home Medications: Ambulatory Orders Medication Instructions Recorded Fluoxetine [Prozac] 20 mg PO DAILY 11/22/16 buPROPion XL [Wellbutrin Xl] 150 mg PO DAILY 01/12/17 Temazepam [Restoril] 15 mg PO QHS PRN PRN 03/27/17 - Family History Maternal - - thyroid disease Paternal Heart Disease Social History: The patient is single. She is unemployed. She consumes alcohol ic beverages occasionally. She does not use tobacco products. Lives: Alone Smoking Status: Never smoker Tobacco Use: Non-smoker Alcohol: Occasional Drugs: None Review of Systems Constitutional: Denies: Chills, Fever, Weight Change Eyes: Denies: Pain, Vision Change HEENT: Denies: Difficulty Hearing, Difficulty Swallowing, Sinus Congestion Cardiovascular: Denies: Chest Pain, Palpitations Respiratory: Denies: Cough, Shortness of Breath Gastrointestinal: Denies: Diarrhea, Nausea, Vomiting Genitourinary: Denies: Dysuria, Hematuria Endocrine: Denies: Heat/ Cold Intolerance, Polydipsia, Polyuria Hematologic/ Lymphatic: Denies: Easy Bruising, Easy Bleeding - Physical Exam Vital Signs Temp Pulse Resp BP 97 F L 84 18 142/84 H 08/17/18 10:56 08/17/18 10:56 08/17/18 10:56 08/17/18 10:56 General: Alert, Oriented x3, Cooperative, No apparent distress, Well developed, Well nourished HEENT: Atraumatic, PERRLA, EOMI, Normocephalic Oral: Moist Mucosa Neck: Supple, No JVD, Negative Carotid Bruits, Negative Hepatojugular Reflux, No Nodes, No Nuchal Rigidity, Trachea Midline Lungs: Clear to auscultation, Normal air movement, No rhonchi, No wheeze, No rales Cardiovascular: Regular rate, Regular Rhythm, Normal S1, Normal S2, No murmurs, No Ectopic Activity Abdomen: Soft, Non Tender, Non-Distended, Obese, - - The patient is morbidly obese Extremities: No clubbing, No cyanosis, No Calf Tenderness, - - There are no open wounds or ulcerations. There is no significant hyperpigmentation or skin changes. Swelling and edema is noted bilaterally, more pronounced on the right. Circumference measurements are documented elsewhere. Healed surgical incisions are noted about the knees. Skin: No rashes, No breakdown Wound Measurements and Assessment - Nurse 1 - General Ulcer Measurement Start: 08/17/18 10:55 Freq: Status: Active Protocol: Activity Type Activity Date Activity User E-Sign Co-Sign Detail Recorded Client Recorded Date Recorded By Document 08/17/18 10:56 RB [id number] 08/17/18 11:03 RB 08/17/18 10:56 Wound Center Nurse 1 [Edema Assessment] -Lower Limb Edema Present Yes -Right Calf (cm) 56.5 -Right Ankle (cm) 33.5 -Left Calf (cm) 52.4 -Left Ankle (cm) 29.5 - Nurse 2 - General Ulcer CM Notes Start: 08/17/18 10:55 Freq: Status: Active Protocol: Activity Type Activity Date Activity User E-Sign Co-Sign Detail Recorded Client Recorded Date Recorded By Document 08/17/18 11:18 AN [id number] 08/17/18 11:27 AN 08/17/18 11:18 Pain Scale: 0-10 Numeric [Pain] -Is Patient Pain Free? Yes Musculoskeletal: No Muscle Wasting Neurological: Cranial nerves II-XII grossly intact, Neuro grossly intact Psych/Mental Status: Normal Affect, Appropriate, Alert and oriented to time, place, person, mood and affect Debridement Note Post-Debridement Measurements/Treatment WC - Nurse 2 - General Ulcer CM Notes Start: 08/17/18 10:55 Freq: Status: Active Protocol: Activity Type Activity Date Activity User E-Sign Co-Sign Detail Recorded Client Recorded Date Recorded By Document 08/17/18 11:18 AN [id number] 08/17/18 11:27 AN 08/17/18 11:18 Pain Scale: 0-10 Numeric Is Patient Pain Free? Yes No debridement was completed today Assessment/Plan Active Problems Leg swelling (Chronic) Leg edema (Chronic) Morbid obesity (Chronic) Assessment: This is a 57-year-old female who presents with chronic swelling and edema in her lower extremities bilaterally. She presents for evaluation and advisement relative to the appropriate measures in controlling the swelling and edema in her lower extremities. She is undergone multiple orthopedic surgical procedures in the past, as documented above. Nonetheless, she is generally active, functional, and ambulatory. She is morbidly obese, however. Plan: A lengthy discussion has been undertaken as to the appropriate measures for the control of the patient's lower extremity swelling and edema. Patient has been advised to elevate her lower extremities as much as possible. The means by which this is to be accomplished has been thoroughly explained. Lower extremities are to be elevated to heart level, or higher. This is to be accomplished even during daytime hours. She currently sleeps on a flat mattress at night. Patient has been advised to avoid prolonged idle sitting. Activity has been encouraged, recruiting the calf and foot muscle pumps. Weight loss has been strongly recommended. The patient has made efforts in the past, and is somewhat tearful at the excessive weight she has gained as a result of her inactivity related to postsurgical inactivity in the past. Compression is to be continued using the patient's current Velcro compression wraps and mechanical pneumatic pumps. Patient has been asked to bring the mechanical pumps and her Velcro garments with her to her next appointment, so it can be ascertained that these are appropriate for her needs. We are to obtain a noninvasive lower extremity arterial study, which will determine whether enhanced levels of compression can be implemented safely. Patient is to return within the next week or 2, following the completion of her noninvasive lower extremity arterial study. In summary, we are to implement leg elevation, avoidance of idle standing and sitting, activity, and weight loss measures. Compression to the lower extremities is to be continued with the current devices the patient has been using. Influenza vaccine was not administered today. Patient is not a smoker. She weighs 310 pounds. She stands 5 feet 10 inches tall. Her BMI is 44.4, which places her in a class III overweight category. Weight loss has been recommended, in collaboration with the patient's primary care physician has been advised.
== END 2018-08-20 23:59 ==
LOC: WC 10:05
PROVIDERS: Family Provider Family Medicine; PCP Family Medicine; Visit Provider Surgery
DX: I87.2 Venous insufficiency (chronic) (peripheral) (principal); E66.01 Morbid (severe) obesity due to excess calories; Z96.643 Presence of artificial hip joint, bilateral; Z96.653 Presence of artificial knee joint, bilateral; R60.0 Localized edema; M79.89 Other specified soft tissue disorders; M19.90 Unspecified osteoarthritis, unspecified site; M51.36 Other intervertebral disc degeneration, lumbar region; Z71.3 Dietary counseling and surveillance; Z68.41 Body mass index [BMI] 40.0-44.9, adult; Z79.899 Other long term (current) drug therapy
CPT/HCPCS: 99202; G0463

== ENCOUNTER 2018-08-31 10:37 | Outpatient (RCR) | payer MEDICARE, SELFPAY ==
[2018-08-21 01:29] VITALS: BP 142/84; PULSE 84; RESP 18; TEMP 36.1
[2018-08-31 11:50] VITALS: BP 124/86; PULSE 92; RESP 18; TEMP 36.2; BMI 44.4
--- NOTE | 2018-08-31 12:37 | PCM.WC.HP ---
(1) Leg swelling Status: Chronic Current Visit: Yes Code(s): M79.89 - Other specified soft tissue disorders (2) Leg edema Status: Chronic Current Visit: Yes Code(s): R60.0 - Localized edema (3) Osteoarthritis Status: Chronic Current Visit: No (4) Status post bilateral knee replacements Status: Chronic Current Visit: No Code(s): Z96.653 - Presence of artificial knee joint, bilateral (5) Venous insufficiency Status: Chronic Current Visit: Yes (6) Morbid obesity Status: Chronic Current Visit: Yes Code(s): E66.01 - Morbid (severe) obesity due to excess calories (7) Status post bilateral hip replacements Status: Chronic Current Visit: No Code(s): Z96.643 - Presence of artificial hip joint, bilateral History of Present Illness Date of Service: 08/31/18 Chief Complaint: Bilateral lower extremity swelling and edema, right greater than left History of Wound: This is a 57-year-old morbidly obese female who presents with chronic swelling and edema in her lower extremities. The right lower extremity is more severely affected. Patient has a significant history in that she has undergone multiple orthopedic procedures in her lower extremities. She is undergone bilateral hip replacement procedures. She is undergone bilateral knee replacement procedures. 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 The patient is also undergone open reduction and internal fixation of a right ankle fracture. Thus, she has had multiple orthopedic procedures in both lower extremities, more numerous on the right. As result of her numerous procedures, and long periods of inactivity, she has gained significant amounts of weight. She suffers from bilateral lower extremity swelling and edema, which is worse on the right. She has had several episodes of cellulitis affecting her right lower extremity, treated with antibiotics. She has Velcro compression wraps, as well as mechanical pneumatic compression pumps, with which she has been only moderately compliant. She claims to sleep on a flat mattress at night. She also indicates that she leads a relatively active lifestyle. The swelling in her lower extremities is typically worse at the end of the day, and often noted after long periods of idle sitting. Past Medical History Past Medical History: Chronic Problems Leg swelling (Chronic) Leg edema (Chronic) History of cellulitis (Chronic) Insomnia (Chronic) PERIPROSTETIC KNEE INFECTION (Chronic) PSEUDOMONAS Depression (Chronic) Osteoarthritis (Chronic) Status post bilateral knee replacements (Chronic) Venous insufficiency (Chronic) Morbid obesity (Chronic) Status post bilateral hip replacements (Chronic) Surgical History: total hip arthroplasty - Bilateral., total knee arthroplasty - Bilateral., - - R ankle ORIF, 2 C-sections, tubal ligation, on initial laparoscopic incisional hernia repair, recurrent open complex hernia repair with removal of previous mesh and partial omentectomy, Explant right total knee with placement of cement spacer. The patient is a Ab0 Allergies/Adverse Reactions: Allergies No Known Allergies Allergy (Verified 07/20/18 10:50) Home Medications: Ambulatory Orders Medication Instructions Recorded Fluoxetine [Prozac] 20 mg PO DAILY 11/22/16 buPROPion XL [Wellbutrin Xl] 150 mg PO DAILY 01/12/17 Temazepam [Restoril] 15 mg PO QHS PRN PRN 03/27/17 - Family History Maternal - - thyroid disease Paternal Heart Disease Smoking Status: Never smoker Tobacco Use: Non-smoker Review of Systems Constitutional: Denies: Chills, Fever, Weight Change Eyes: Denies: Pain, Vision Change HEENT: Denies: Difficulty Hearing, Difficulty Swallowing, Sinus Congestion Cardiovascular: Denies: Chest Pain, Palpitations Respiratory: Denies: Cough, Shortness of Breath Gastrointestinal: Denies: Diarrhea, Nausea, Vomiting Genitourinary: Denies: Dysuria, Hematuria Endocrine: Denies: Heat/ Cold Intolerance, Polydipsia, Polyuria Hematologic/ Lymphatic: Denies: Easy Bruising, Easy Bleeding - Physical Exam Vital Signs Temp Pulse Resp BP 97.1 F L 92 18 124/86 H 08/31/18 11:50 08/31/18 11:50 08/31/18 11:50 08/31/18 11:50 General: Alert, Oriented x3, Cooperative, No apparent distress, Well developed, Well nourished HEENT: Atraumatic, PERRLA, EOMI, Normocephalic Oral: Moist Mucosa Neck: No JVD Lungs: Normal air movement Abdomen: Non-Distended Extremities: No clubbing, No cyanosis, No Calf Tenderness, - - Moderate swelling and edema persist in the lower extremities bilaterally. It is more severe involving the right lower extremity. There are no open wounds or ulcerations. Circumference measurements are documented elsewhere. Skin: No rashes, No breakdown Wound Measurements and Assessment WC - Nurse 1 - General Ulcer Measurement Start: 08/31/18 11:49 Freq: Status: Active Protocol: Activity Type Activity Date Activity User E-Sign Co-Sign Detail Recorded Client Recorded Date Recorded By Document 08/31/18 11:50 AN [id number] 08/31/18 11:57 AN 08/31/18 11:50 Wound Center Nurse 1 [Edema Assessment] -Right Calf (cm) 55.5 -Right Ankle (cm) 33.6 -Left Ankle (cm) 29.0 -Left Foot (cm) 53.0 WC - Nurse 2 - General Ulcer CM Notes Start: 08/31/18 11:49 Freq: Status: Active Protocol: Activity Type Activity Date Activity User E-Sign Co-Sign Detail Recorded Client Recorded Date Recorded By Document 08/31/18 12:29 DV [id number] 08/31/18 12:33 DV 08/31/18 12:29 Pain Scale: 0-10 Numeric [Pain] -Is Patient Pain Free? Yes Musculoskeletal: No Muscle Wasting Neurological: Cranial nerves II-XII grossly intact, Neuro grossly intact Psych/Mental Status: Normal Affect, Appropriate, Alert and oriented to time, place, person, mood and affect Debridement Note Post-Debridement Measurements/Treatment WC - Nurse 2 - General Ulcer CM Notes Start: 08/31/18 11:49 Freq: Status: Active Protocol: Activity Type Activity Date Activity User E-Sign Co-Sign Detail Recorded Client Recorded Date Recorded By Document 08/31/18 12:29 DV [id number] 08/31/18 12:33 DV 08/31/18 12:29 Pain Scale: 0-10 Numeric Is Patient Pain Free? Yes No debridement was completed today - There are no open wounds or ulcerations. Assessment/Plan Active Problems Leg swelling (Chronic) Leg edema (Chronic) Venous insufficiency (Chronic) Morbid obesity (Chronic) Assessment: This is a 57-year-old female who presented with chronic swelling and edema in her lower extremities bilaterally. She presented for evaluation and advisement relative to the appropriate measures in controlling the swelling and edema in her lower extremities. She has undergone multiple orthopedic surgical procedures in the past, as documented above. Nonetheless, she is generally active, functional, and ambulatory. She is morbidly obese, however. Plan: A lengthy discussion has been undertaken as to the appropriate measures for the control of the patient's lower extremity swelling and edema. Patient has been advised to elevate her lower extremities as much as possible. The means by which this is to be accomplished has been thoroughly explained. Lower extremities are to be elevated to heart level, or higher. This is to be accomplished even during daytime hours. She currently sleeps on a flat mattress at night. Patient has been advised to avoid prolonged idle sitting. Activity has been encouraged, recruiting the calf and foot muscle pumps. Weight loss has been strongly recommended. The patient has made efforts in the past, and is somewhat tearful at the excessive weight she has gained as a result of her inactivity related to postsurgical inactivity in the past. Compression is to be continued using the patient's current Velcro compression wraps and mechanical pneumatic pumps. Patient has brought both her Velcro compression garments and her mechanical pneumatic pumps with her to the visit today, and both appear to be adequate and suitable for her current needs. We are to obtain a noninvasive lower extremity arterial study, which will determine whether enhanced levels of compression can be implemented safely. However, the patient has used her Velcro compression garments in the recent past without any difficulties, and these will be continued for the purpose of compression. Patient is return in 2 weeks for reassessment. In summary, we are to implement leg elevation, avoidance of idle standing and sitting, activity, and weight loss measures. Compression to the lower extremities is to be continued with the current devices the patient has been using. There is some question as to the patient's commitment to compliance with recommended measures, given that she is somewhat resistant in conversation to the recommended measures. Influenza vaccine was not administered today. Patient is not a smoker. She weighs 310 pounds. She stands 5 feet 10 inches tall. Her BMI is 44.4, which places her in a class III overweight category. Weight loss has been recommended, in collaboration with the patient's primary care physician has been advised.
--- NOTE | 2018-08-31 13:19 | ART_ITS ---
Reason For Study: PVD Left Segmental Pressures Left brachial= 146mmHg. Left posterior tibial artery = 204mmHg. Left dorsalis pedis artery = 174mmHg. Left digit = 147 mmHg. The left dorsalis pedis waveforms are triphasic. The left posterior tibial artery waveforms are triphasic. Right Segmental Pressures Right brachial= 140mmHg. Right posterior tibial artery = 160mmHg. Right dorsalis pedis artery = 165mmHg. Right digit = 146 mmHg. The right dorsalis pedis waveforms are triphasic. The right posterior tibial artery waveforms are triphasic. Indices The right ankle brachial index by the dorsalis pedis is 1.13. The right ankle brachial index by the posterior tibial artery is 1.1. The left ankle brachial index by the posterior tibial artery is 1.4. The left ankle brachial index by the dorsalis pedis is 1.19. Interpretation Summary Triphasic Doppler waveforms are noted at ankle level bilaterally. Pulse-volume recording waveform amplitudes appear satisfactory at all levels bilaterally, including low-thigh, calf, ankle, and digital levels. Resting ankle-brachial indices are normal bilaterally. Digital-brachial indices are bilaterally normal. There is no evidence of significant arterial occlusive in the lower extremities bilaterally. Ordering Physician: Binu Troncoso Performed By: FIDENCIO HOWARD T
== END 2018-09-19 23:59 ==
LOC: CVS 10:37
PROVIDERS: Family Provider Family Medicine; PCP Family Medicine; Referring Provider Surgery; Visit Provider Surgery
DX: M79.89 Other specified soft tissue disorders (principal); R60.0 Localized edema; Z87.2 Personal history of diseases of the skin and subcutaneous tissue; I73.9 Peripheral vascular disease, unspecified
CPT/HCPCS: 93923; 99213; G0463

== ENCOUNTER → 2018-11-13 11:33 | Outpatient (CLI) | payer MEDICARE, SELFPAY ==
[2018-11-13 12:06] LABS: Absolute Lymphocyte Count 0.75 X10^3/uL (0.83-4.51); Absolute Neutrophil Count 3.5 X10^3/uL (2.0-7.7); Basophil# 0.02 X10^3/uL; Basophil% 0.4 % (0-1); Eosinophils% 2.1 % (0-5); Hematocrit 44.8 % (37-47); Hemoglobin 14.3 g/dL (12.0-15.0); Lymphocyte # 0.75 X10^3/ul (4.0); Lymphocyte % 16.1 % (19-41); Mean Corp Hgb Conc 31.9 g/dL (32-36); Mean Corpuscular Hgb 30.2 pg (27.0-32.0); Mean Corpuscular Volume 94.5 fL (81-99); Mean Platelet Vol. 10.5 fl (6.2-12.0); Monocyte% 6.4 % (0-10); NRBC Flagged by Analyzer 0 % (0-5); Neutrophil # 3.49 X10^3/uL (2.7-7.7); Neutrophil % 74.8 % (47-70); Platelet Count 232 K/mm3 (150-450); RBC Distribution Width CV 12.9 % (11.6-14.6); RBC Distribution Width SD 44.5 fl (35.1-43.9); Red Blood Count 4.74 M/mm3 (4.2-5.4); White Blood Count 4.7 K/mm3 (4.4-11.0)
[2018-11-13 12:21] LABS: Erythrocyte Sedimentation Rate 20 mm/hr (0-30)
== END ==
LOC: LAB 11:35
PROVIDERS: Family Provider Family Medicine; PCP Family Medicine; Referring Provider Specialist; Visit Provider Specialist
DX: Z96.651 Presence of right artificial knee joint (principal)
CPT/HCPCS: 36415; 85025; 85652; 86140

== ENCOUNTER → 2018-12-16 11:23 | Outpatient (CLI) | payer MEDICARE, SELFPAY ==
[2018-12-16 11:42] LABS: Erythrocyte Sedimentation Rate 21 mm/hr (0-30)
[2018-12-16 11:45] LABS: Absolute Lymphocyte Count 0.76 X10^3/uL (0.83-4.51); Absolute Neutrophil Count 3.5 X10^3/uL (2.0-7.7); Basophil# 0.02 X10^3/uL; Basophil% 0.4 % (0-1); Eosinophils% 2.1 % (0-5); Hematocrit 43.1 % (37-47); Hemoglobin 13.6 g/dL (12.0-15.0); Lymphocyte # 0.76 X10^3/ul (4.0); Lymphocyte % 15.9 % (19-41); Mean Corp Hgb Conc 31.6 g/dL (32-36); Mean Corpuscular Hgb 29.4 pg (27.0-32.0); Mean Corpuscular Volume 93.1 fL (81-99); Mean Platelet Vol. 10.4 fl (6.2-12.0); Monocyte# 0.37 X10^3/uL; Monocyte% 7.8 % (0-10); NRBC Flagged by Analyzer 0 % (0-5); Neutrophil # 3.51 X10^3/uL (2.7-7.7); Neutrophil % 73.6 % (47-70); Platelet Count 216 K/mm3 (150-450); RBC Distribution Width CV 12.9 % (11.6-14.6); RBC Distribution Width SD 44.1 fl (35.1-43.9); Red Blood Count 4.63 M/mm3 (4.2-5.4); White Blood Count 4.8 K/mm3 (4.4-11.0)
== END ==
PROVIDERS: Family Provider Family Medicine; PCP Family Medicine; Referring Provider Specialist; Visit Provider Specialist
DX: Z96.651 Presence of right artificial knee joint (principal)
CPT/HCPCS: 36415; 85025; 85652; 86140

== ENCOUNTER → 2019-05-26 09:13 | Outpatient (CLI) | payer MEDICARE, SELFPAY ==
[2019-05-26 10:14] LABS: Erythrocyte Sedimentation Rate 126 mm/hr (0-30)
[2019-05-26 10:16] LABS: Absolute Lymphocyte Count 0.89 X10^3/uL (0.83-4.51); Absolute Neutrophil Count 4.9 X10^3/uL (2.0-7.7); Basophil# 0.02 X10^3/uL; Basophil% 0.3 % (0-1); Eosinophil# 0.09 X10^3/uL; Eosinophils% 1.4 % (0-5); Hematocrit 38.8 % (37-47); Hemoglobin 12.4 g/dL (12.0-15.0); Lymphocyte # 0.89 X10^3/ul (4.0); Mean Corpuscular Hgb 29.7 pg (27.0-32.0); Monocyte# 0.45 X10^3/uL; Monocyte% 7.1 % (0-10); NRBC Flagged by Analyzer 0 % (0-5); Neutrophil # 4.87 X10^3/uL (2.7-7.7); Neutrophil % 76.9 % (47-70); Platelet Count 336 K/mm3 (150-450); RBC Distribution Width CV 13.7 % (11.6-14.6); RBC Distribution Width SD 47.3 fl (35.1-43.9); Red Blood Count 4.17 M/mm3 (4.2-5.4); White Blood Count 6.3 K/mm3 (4.4-11.0)
== END ==
LOC: LAB 09:14
PROVIDERS: PCP Family Medicine; Referring Provider Specialist; Visit Provider Specialist
DX: M25.461 Effusion, right knee (principal); Z96.651 Presence of right artificial knee joint
CPT/HCPCS: 36415; 85025; 85652; 86140

== ENCOUNTER → 2019-05-30 09:43 | Outpatient (CLI) | payer MEDICARE, SELFPAY ==
[2019-05-30 10:31] LABS: RBC /Synovial Fluid 0.022 10^6/uL (0); Synovial Fld Mononuclear WBC % 8.4 %; Synovial Fld Polynuclear WBC % 91.6 %
[2019-05-30 11:45] LABS: AUTO B FLUID DILUENT BKGD CT WBC <0.1 RBC <0.01 (W<.1,R<.01); Appearance /Synovial Fluid Sl Cl (CLEAR); Body Fluid QC Type(s) BF1Q; Color / Synovial Fluid Pink (Pale Yellow)
[2019-05-30 11:47] LABS: Lymph 7 %; Monocyte /Synovial Fluid 3 %; Neutrophil 90 % (0-25)
[2019-05-31 14:27] LABS: Pathologist Comment Reviewed
== END ==
PROVIDERS: PCP Family Medicine; Referring Provider Specialist; Visit Provider Specialist
DX: M25.461 Effusion, right knee (principal); Z96.651 Presence of right artificial knee joint
CPT/HCPCS: 87015; 87070; 87075; 87077; 87101; 87116; 87186; 87205; 87206; 89050; 89051

== ENCOUNTER → 2019-06-15 14:28 | Outpatient (CLI) | payer MEDICARE, SELFPAY ==
[2019-06-15 14:58] LABS: Hematocrit 41.9 % (37-47); Hemoglobin 13.4 g/dL (12.0-15.0); Mean Corpuscular Hgb 29.4 pg (27.0-32.0); Mean Corpuscular Volume 91.9 fL (81-99); Mean Platelet Vol. 10.3 fl (6.2-12.0); Platelet Count 263 K/mm3 (150-450); RBC Distribution Width CV 13.2 % (11.6-14.6); RBC Distribution Width SD 44.7 fl (35.1-43.9); Red Blood Count 4.56 M/mm3 (4.2-5.4); White Blood Count 5.6 K/mm3 (4.4-11.0)
[2019-06-15 15:05] LABS: Erythrocyte Sedimentation Rate 37 mm/hr (0-30)
[2019-06-15 15:27] LABS: AST(SGOT) 13 U/L (15-37); Alanine Aminotransfer ALT/SGPT 17 U/L (13-56); Albumin, Serum 3.6 g/dL (3.2-5.0); Alkaline Phosphatase 108 U/L (45-117); Anion Gap 7 (5-15); BUN 8 mg/dL (7-18); BUN/Creat Ratio 9.3 RATIO (10-20); Bilirubin, Direct 0.09 mg/dL (0.00-0.30); Chloride 107 mmol/L (98-107); Creatinine, Serum 0.86 mg/dL (0.55-1.02); EST Glomerular Filtration Rate 72 mL/min (>60); Est Glom Filt Rate - Afr Amer 87 mL/min (>60); Globulin 4.4 g/dL (2.2-4.2); Glucose 106 mg/dL (74-106); Potassium 3.5 mmol/L (3.5-5.1); Sodium Level 139 mmol/L (136-145)
== END ==
LOC: LAB 14:30
PROVIDERS: PCP Family Medicine; Referring Provider Internal Medicine Infectious Disease; Visit Provider Internal Medicine Infectious Disease
DX: T84.53XA Infection and inflammatory reaction due to internal right knee prosthesis, initial encounter (principal)
CPT/HCPCS: 36415; 80048; 80076; 85027; 85652

== ENCOUNTER 2019-07-14 13:06 | Outpatient (RCR) | payer MEDICARE, SELFPAY ==
[2019-06-29 08:56] LABS: AST(SGOT) 12 U/L (15-37); Alanine Aminotransfer ALT/SGPT 15 U/L (13-56); Albumin, Serum 3.4 g/dL (3.2-5.0); Alkaline Phosphatase 102 U/L (45-117); Anion Gap 3 (5-15); BUN 10 mg/dL (7-18); BUN/Creat Ratio 11.4 RATIO (10-20); Bilirubin, Direct 0.14 mg/dL (0.00-0.30); Calcium,Total 8.9 mg/dL (8.5-10.1); Chloride 111 mmol/L (98-107); Creatinine, Serum 0.88 mg/dL (0.55-1.02); EST Glomerular Filtration Rate 71 mL/min (>60); Est Glom Filt Rate - Afr Amer 85 mL/min (>60); Globulin 4.1 g/dL (2.2-4.2); Glucose 90 mg/dL (74-106); Potassium 3.8 mmol/L (3.5-5.1); Protein, Total 7.5 g/dL (6.4-8.2); Sodium Level 140 mmol/L (136-145)
[2019-06-29 09:04] LABS: Hematocrit 41.1 % (37-47); Hemoglobin 13.7 g/dL (12.0-15.0); Mean Corp Hgb Conc 33.3 g/dL (32-36); Mean Corpuscular Hgb 30.4 pg (27.0-32.0); Mean Corpuscular Volume 91.3 fL (81-99); Mean Platelet Vol. 11.2 fl (6.2-12.0); Platelet Count 213 K/mm3 (150-450); RBC Distribution Width CV 13.4 % (11.6-14.6); RBC Distribution Width SD 45.1 fl (35.1-43.9); White Blood Count 5.1 K/mm3 (4.4-11.0)
[2019-06-29 09:30] LABS: Erythrocyte Sedimentation Rate 32 mm/hr (0-30)
[2019-07-14 13:57] LABS: Hematocrit 44.9 % (37-47); Hemoglobin 14.6 g/dL (12.0-15.0); Mean Corp Hgb Conc 32.5 g/dL (32-36); Mean Corpuscular Hgb 29.9 pg (27.0-32.0); Platelet Count 228 K/mm3 (150-450); RBC Distribution Width CV 13.4 % (11.6-14.6); RBC Distribution Width SD 45.4 fl (35.1-43.9); Red Blood Count 4.88 M/mm3 (4.2-5.4); White Blood Count 5.9 K/mm3 (4.4-11.0)
[2019-07-14 14:20] LABS: Erythrocyte Sedimentation Rate 32 mm/hr (0-30)
[2019-07-14 14:23] LABS: AST(SGOT) 14 U/L (15-37); Alanine Aminotransfer ALT/SGPT 16 U/L (13-56); Albumin, Serum 3.5 g/dL (3.2-5.0); Alkaline Phosphatase 109 U/L (45-117); Anion Gap 7 (5-15); BUN 11 mg/dL (7-18); BUN/Creat Ratio 12.1 RATIO (10-20); Calcium,Total 9.3 mg/dL (8.5-10.1); Chloride 108 mmol/L (98-107); Creatinine, Serum 0.91 mg/dL (0.55-1.02); EST Glomerular Filtration Rate 68 mL/min (>60); Est Glom Filt Rate - Afr Amer 82 mL/min (>60); Globulin 4.2 g/dL (2.2-4.2); Glucose 135 mg/dL (74-106); Potassium 4.3 mmol/L (3.5-5.1); Protein, Total 7.7 g/dL (6.4-8.2); Sodium Level 141 mmol/L (136-145)
== END 2019-07-21 18:00 | disposition home or self-care (01) ==
LOC: LAB 13:06
PROVIDERS: PCP Family Medicine; Referring Provider Internal Medicine Infectious Disease; Visit Provider Internal Medicine Infectious Disease
DX: T84.53XA Infection and inflammatory reaction due to internal right knee prosthesis, initial encounter (principal)
CPT/HCPCS: 36415; 80048; 80076; 85027; 85652

== ENCOUNTER 2019-08-10 08:04 | Outpatient (RCR) | payer MEDICARE, SELFPAY ==
[2019-08-10 08:40] LABS: Erythrocyte Sedimentation Rate 12 mm/hr (0-30)
[2019-08-10 08:42] LABS: Hematocrit 44.8 % (37-47); Hemoglobin 14.7 g/dL (12.0-15.0); Mean Corp Hgb Conc 32.8 g/dL (32-36); Mean Corpuscular Hgb 30.5 pg (27.0-32.0); Mean Corpuscular Volume 92.9 fL (81-99); Platelet Count 247 K/mm3 (150-450); RBC Distribution Width CV 13.9 % (11.6-14.6); Red Blood Count 4.82 M/mm3 (4.2-5.4); White Blood Count 6.3 K/mm3 (4.4-11.0)
[2019-08-10 09:08] LABS: AST(SGOT) 14 U/L (15-37); Alanine Aminotransfer ALT/SGPT 17 U/L (13-56); Albumin, Serum 3.5 g/dL (3.2-5.0); Alkaline Phosphatase 101 U/L (45-117); Anion Gap 7 (5-15); BUN 9 mg/dL (7-18); BUN/Creat Ratio 9.8 RATIO (10-20); Bilirubin, Direct 0.12 mg/dL (0.00-0.30); Calcium,Total 8.9 mg/dL (8.5-10.1); Chloride 107 mmol/L (98-107); Creatinine, Serum 0.92 mg/dL (0.55-1.02); EST Glomerular Filtration Rate 67 mL/min (>60); Est Glom Filt Rate - Afr Amer 82 mL/min (>60); Globulin 4.1 g/dL (2.2-4.2); Glucose 97 mg/dL (74-106); Protein, Total 7.6 g/dL (6.4-8.2); Sodium Level 141 mmol/L (136-145)
== END 2019-08-10 18:00 | disposition home or self-care (01) ==
LOC: LAB 08:04
PROVIDERS: PCP Family Medicine; Referring Provider Internal Medicine Infectious Disease; Visit Provider Internal Medicine Infectious Disease
DX: T84.53XA Infection and inflammatory reaction due to internal right knee prosthesis, initial encounter (principal); Z96.651 Presence of right artificial knee joint
CPT/HCPCS: 36415; 80048; 80076; 85027; 85652

== ENCOUNTER 2019-09-09 09:22 | Outpatient (RCR) | payer MEDICARE, SELFPAY ==
[2019-09-09 10:33] LABS: Absolute Lymphocyte Count 1.08 X10^3/uL (0.83-4.51); Absolute Neutrophil Count 3.9 X10^3/uL (2.0-7.7); Basophil# 0.03 X10^3/uL; Basophil% 0.5 % (0-1); Eosinophil# 0.12 X10^3/uL; Eosinophils% 2.2 % (0-5); Hematocrit 43.3 % (37-47); Hemoglobin 13.8 g/dL (12.0-15.0); Lymphocyte # 1.08 X10^3/ul (4.0); Lymphocyte % 19.4 % (19-41); Mean Corp Hgb Conc 31.9 g/dL (32-36); Mean Corpuscular Hgb 30.2 pg (27.0-32.0); Mean Corpuscular Volume 94.7 fL (81-99); Monocyte# 0.47 X10^3/uL; Monocyte% 8.5 % (0-10); NRBC Flagged by Analyzer 0 % (0-5); Neutrophil # 3.85 X10^3/uL (2.7-7.7); Neutrophil % 69.2 % (47-70); Platelet Count 243 K/mm3 (150-450); RBC Distribution Width CV 14.2 % (11.6-14.6); Red Blood Count 4.57 M/mm3 (4.2-5.4); White Blood Count 5.6 K/mm3 (4.4-11.0)
[2019-09-09 10:58] LABS: AST(SGOT) 10 U/L (15-37); Alanine Aminotransfer ALT/SGPT 14 U/L (13-56); Albumin, Serum 3.3 g/dL (3.2-5.0); Alkaline Phosphatase 96 U/L (45-117); Anion Gap 4 (5-15); BUN 9 mg/dL (7-18); Bilirubin, Direct 0.18 mg/dL (0.00-0.30); Calcium,Total 8.9 mg/dL (8.5-10.1); Chloride 109 mmol/L (98-107); EST Glomerular Filtration Rate 68 mL/min (>60); Est Glom Filt Rate - Afr Amer 83 mL/min (>60); Glucose 72 mg/dL (74-106); Potassium 3.9 mmol/L (3.5-5.1); Protein, Total 7.3 g/dL (6.4-8.2); Sodium Level 141 mmol/L (136-145)
== END 2019-09-09 18:00 | disposition home or self-care (01) ==
LOC: LAB 09:22
PROVIDERS: PCP Family Medicine; Referring Provider Internal Medicine Infectious Disease; Visit Provider Internal Medicine Infectious Disease
DX: T84.50XA Infection and inflammatory reaction due to unspecified internal joint prosthesis, initial encounter (principal); Z96.651 Presence of right artificial knee joint
CPT/HCPCS: 36415; 80048; 80076; 85025

== ENCOUNTER 2019-11-09 10:01 | Outpatient (RCR) | payer MEDICARE, SELFPAY ==
[2019-11-09 10:37] LABS: Absolute Lymphocyte Count 1.08 X10^3/uL (0.83-4.51); Absolute Neutrophil Count 4.4 X10^3/uL (2.0-7.7); Basophil# 0.02 X10^3/uL; Basophil% 0.3 % (0-1); Eosinophil# 0.14 X10^3/uL; Eosinophils% 2.3 % (0-5); Hematocrit 42.4 % (37-47); Hemoglobin 13.9 g/dL (12.0-15.0); Lymphocyte # 1.08 X10^3/ul (4.0); Mean Corp Hgb Conc 32.8 g/dL (32-36); Mean Corpuscular Hgb 31.3 pg (27.0-32.0); Mean Corpuscular Volume 95.5 fL (81-99); Mean Platelet Vol. 10.5 fl (6.2-12.0); Monocyte# 0.35 X10^3/uL; Monocyte% 5.8 % (0-10); NRBC Flagged by Analyzer 0 % (0-5); Neutrophil # 4.41 X10^3/uL (2.7-7.7); Neutrophil % 73.4 % (47-70); Platelet Count 218 K/mm3 (150-450); RBC Distribution Width SD 48.9 fl (35.1-43.9); Red Blood Count 4.44 M/mm3 (4.2-5.4)
[2019-11-09 11:25] LABS: AST(SGOT) 10 U/L (15-37); Alanine Aminotransfer ALT/SGPT 14 U/L (13-56); Albumin, Serum 3.5 g/dL (3.2-5.0); Alkaline Phosphatase 92 U/L (45-117); Anion Gap 6 (5-15); BUN 7 mg/dL (7-18); BUN/Creat Ratio 7.7 RATIO (10-20); Bilirubin, Direct 0.15 mg/dL (0.00-0.30); Calcium,Total 8.8 mg/dL (8.5-10.1); Chloride 106 mmol/L (98-107); EST Glomerular Filtration Rate 68 mL/min (>60); Est Glom Filt Rate - Afr Amer 83 mL/min (>60); Glucose 113 mg/dL (74-106); Potassium 3.6 mmol/L (3.5-5.1); Protein, Total 7.5 g/dL (6.4-8.2); Sodium Level 139 mmol/L (136-145)
== END 2019-11-21 18:00 | disposition home or self-care (01) ==
LOC: LAB 10:01
PROVIDERS: PCP Family Medicine; Referring Provider Internal Medicine Infectious Disease; Visit Provider Internal Medicine Infectious Disease
DX: T84.53XA Infection and inflammatory reaction due to internal right knee prosthesis, initial encounter (principal); Z96.651 Presence of right artificial knee joint
CPT/HCPCS: 36415; 80048; 80076; 85025

== ENCOUNTER 2020-02-24 16:01 | Outpatient (RCR) | payer MEDICARE, SELFPAY ==
[2020-02-24 16:40] LABS: Absolute Lymphocyte Count 1.36 X10^3/uL (0.83-4.51); Absolute Neutrophil Count 4.1 X10^3/uL (2.0-7.7); Basophil# 0.03 X10^3/uL; Basophil% 0.5 % (0-1); Eosinophil# 0.12 X10^3/uL; Hematocrit 43.6 % (37-47); Lymphocyte # 1.36 X10^3/ul (4.0); Lymphocyte % 22.6 % (19-41); Mean Corp Hgb Conc 32.1 g/dL (32-36); Mean Corpuscular Hgb 31.7 pg (27.0-32.0); Mean Corpuscular Volume 98.6 fL (81-99); Mean Platelet Vol. 10.5 fl (6.2-12.0); Monocyte# 0.45 X10^3/uL; Monocyte% 7.5 % (0-10); NRBC Flagged by Analyzer 0 % (0-5); Neutrophil # 4.05 X10^3/uL (2.7-7.7); Neutrophil % 67.2 % (47-70); Platelet Count 237 K/mm3 (150-450); RBC Distribution Width CV 12.8 % (11.6-14.6); RBC Distribution Width SD 47.1 fl (35.1-43.9); Red Blood Count 4.42 M/mm3 (4.2-5.4)
[2020-02-24 16:57] LABS: AST(SGOT) 8 U/L (15-37); Alanine Aminotransfer ALT/SGPT 18 U/L (13-56); Albumin, Serum 3.5 g/dL (3.2-5.0); Alkaline Phosphatase 96 U/L (45-117); Anion Gap 5 (5-15); BUN 13 mg/dL (7-18); BUN/Creat Ratio 11.4 RATIO (10-20); Calcium,Total 9.2 mg/dL (8.5-10.1); Chloride 109 mmol/L (98-107); Creatinine, Serum 1.14 mg/dL (0.55-1.02); EST Glomerular Filtration Rate 52 mL/min (>60); Est Glom Filt Rate - Afr Amer 63 mL/min (>60); Globulin 3.8 g/dL (2.2-4.2); Glucose 104 mg/dL (74-106); Potassium 4.2 mmol/L (3.5-5.1); Protein, Total 7.3 g/dL (6.4-8.2); Sodium Level 142 mmol/L (136-145)
== END 2020-02-24 18:00 | disposition home or self-care (01) ==
LOC: LAB 16:01
PROVIDERS: PCP Family Medicine; Referring Provider Internal Medicine Infectious Disease; Visit Provider Internal Medicine Infectious Disease
DX: T84.53XA Infection and inflammatory reaction due to internal right knee prosthesis, initial encounter (principal)
CPT/HCPCS: 36415; 80048; 80076; 85025

== ENCOUNTER 2021-07-05 10:47 | Outpatient (CLI) | payer MEDICARE, SELFPAY ==
[2021-07-05 11:09] LABS: Erythrocyte Sedimentation Rate 11 mm/hr (0-30); Hematocrit 43.3 % (37-47); Hemoglobin 14.1 g/dL (12.0-15.0); Mean Corp Hgb Conc 32.6 g/dL (32-36); Mean Corpuscular Hgb 31.3 pg (27.0-32.0); Mean Corpuscular Volume 96.2 fL (81-99); Mean Platelet Vol. 10.1 fl (6.2-12.0); Platelet Count 206 K/mm3 (150-450); RBC Distribution Width CV 12.8 % (11.6-14.6); RBC Distribution Width SD 45.5 fl (35.1-43.9); White Blood Count 5.6 K/mm3 (4.4-11.0)
[2021-07-05 11:36] LABS: AST(SGOT) 14 U/L (15-37); Alanine Aminotransfer ALT/SGPT 18 U/L (13-56); Albumin, Serum 3.4 g/dL (3.2-5.0); Alkaline Phosphatase 91 U/L (45-117); Anion Gap 2 (5-15); BUN 10 mg/dL (7-18); BUN/Creat Ratio 12.9 RATIO (10-20); Bilirubin, Direct 0.13 mg/dL (0.00-0.30); Calcium,Total 8.8 mg/dL (8.5-10.1); Chloride 107 mmol/L (98-107); Creatinine, Serum 0.77 mg/dL (0.55-1.02); EST Glomerular Filtration Rate 81 mL/min (>60); Est Glom Filt Rate - Afr Amer 98 mL/min (>60); Globulin 4.1 g/dL (2.2-4.2); Glucose 96 mg/dL (74-106); Potassium 4.3 mmol/L (3.5-5.1); Protein, Total 7.5 g/dL (6.4-8.2); Sodium Level 139 mmol/L (136-145)
== END 2021-07-05 23:59 | disposition home or self-care (01) ==
PROVIDERS: PCP Family Medicine; Referring Provider Internal Medicine Infectious Disease; Visit Provider Internal Medicine Infectious Disease
DX: L08.9 Local infection of the skin and subcutaneous tissue, unspecified (principal)
CPT/HCPCS: 36415; 80048; 80076; 85027; 85652

== ENCOUNTER → 2022-05-09 | Outpatient (CLI) | payer MEDICARE, SELFPAY ==
--- NOTE | 2022-05-09 10:25 | MRI_ITS ---
STUDY: MRI LUMBAR SPINE WITHOUT CONTRAST REASON FOR EXAM: Female, 61 years old. pain Other, LOWER BACK PAIN X 15 YEARS. XR L/SPINE 03/19/22;CT ABD/PEL 05/27/17ignificance. TECHNIQUE: Standardized fat and water weighted pulse sequences were obtained in the sagittal and axial planes. COMPARISON: X-ray of the lumbar spine dated March 19, 2022. CT of abdomen and pelvis dated May 27, 2017. FINDINGS: Normal lumbar lordosis. There is no substantial scoliosis. Normal conus medullaris that terminates at the T12-L1 level. No marrow edema or fracture or compression deformity is seen. Benign fatty hemangioma of the L5 vertebral body. There is predominance of red marrow elements throughout the osseous structures. No aggressive abnormality is seen. T12-L1: Normal endplates. Normal disc height, hydration and morphology. Normal bilateral facet joints. Normal central canal and bilateral lateral recesses. Normal bilateral intervertebral neural foramina. L1-2: Normal endplates. Normal disc height, hydration and morphology. Normal bilateral facet joints. Normal central canal and bilateral lateral recesses. Normal bilateral intervertebral neural foramina. L2-3: Normal endplates. Diffuse disc desiccation. Normal disc height and morphology. Normal bilateral facet joints. Normal central canal and bilateral lateral recesses. Normal bilateral intervertebral neural foramina. L3-4: Normal endplates. Diffuse disc desiccation with mild posterior disc space narrowing but no bulging or herniation. Mild to moderate facet joint hypertrophy. Normal central canal and bilateral lateral recesses. Normal bilateral intervertebral neural foramina. L4-5: Diffuse disc desiccation with mild to moderate disc space narrowing and minimal posterior annular bulging. Mild central canal stenosis and mild to moderate facet joint and ligament of flavum hypertrophy. Normal bilateral intervertebral neural foramina. L5-S1: Moderate Modic endplate degenerative signal. Diffuse disc desiccation with significant disc space narrowing and mild annular bulging. Mild facet joint hypertrophy. Normal central canal and bilateral lateral recesses. Normal bilateral intervertebral neural foramina. Normal visualized sacral ala. Normal visualized paraspinous soft tissue structures. MRI/Spine Lumbar (Routine) IMPRESSION: 1. Multilevel degenerative changes, as described above. 2. Mild central canal stenosis at L4-L5 Electronically Signed: Yovany Jeffery MD at 13:29 EST ,
== END | disposition home or self-care (01) ==
LOC: MRI 10:06
PROVIDERS: PCP Family Medicine; Visit Provider Orthopaedic Surgery
DX: M51.36 Other intervertebral disc degeneration, lumbar region (principal)
CPT/HCPCS: 72148

== ENCOUNTER 2022-11-14 06:45 | Day surgery (SDC) | payer MEDICARE, SELFPAY ==
--- NOTE | 2022-11-05 12:48 | PCM.HP.BLA ---
History and Physical Date of Admission: 11/14/22 HPI: The patient is a 61 year old female presenting for pre-operative visit. She is scheduled for Hysteroscopy D&C, polyp resection and possible progestin IUD insertion for PMB, endometrial polyp on 11/14/22. Procedure discussed along with risks, benefits and complications. Other alternatives discussed for management. Consent form signed? Yes. ? ? PAST MEDICAL HISTORY PAST MEDICAL HISTORY Diagnosis Date ? Abdominal pain, other specified site ? ? Depression ? ? Diarrhea ? ? Fracture, fibula 04/21/2015 ? mildly displaced spiral right fibula ? GERD (gastroesophageal reflux disease) ? ? Hip arthritis 01/08/2011 ? Lumbar degenerative disc disease 01/06/2012 ? Major depressive disorder, recurrent episode, moderate (HCC) 01/18/2019 ? Tennis elbow ? ? Venous insufficiency of both lower extremities 11/12/2016 ? Venous stasis dermatitis of right lower extremity 11/12/2016 ? ? PAST SURGICAL HISTORY PAST SURGICAL HISTORY Procedure Laterality Date ? ARTHRP ACETBLR/PROX FEM PROSTC AGRFT/ALGRFT Right 06/28/2012 ? ARTHRP ACETBLR/PROX FEM PROSTC AGRFT/ALGRFT Left 08/28/2012 ? ARTHRP KNE CONDYLE&PLATU MEDIAL&LAT COMPARTMENTS Bilateral 08/2013 ? DELIVERY ONLY ? ? ? x2 ? LIG/TRNSXJ FLP TUBE ABDL/VAG APPR UNI/BI ? ? ? Tubal ligation ? MAMM DIAG UNI ? 02/20/2009 ? PAST SURGICAL HISTORY OF ? 07/28 ? hernia repair ? PICC LINE INSERT/CONSULT ? 05/15/2014 ? ? S $ KNEE REVISION Right 07/2014 ? ? ? CURRENT MEDICATIONS Current Outpatient Medications Medication Sig Dispense Refill ? temazepam (RESTORIL) 15 mg Take 1 capsule by mouth at bedtime as needed for up to 90 days. 30 capsule 2 ? naproxen (NAPROSYN) 500 mg tablet TAKE ONE TABLET BY MOUTH TWICE DAILY WITH FOOD NEEDED FOR PAIN AND INFLAMMATION 60 tablet 5 ? ibuprofen (MOTRIN) 800 mg tablet Take 1 tablet by mouth every 8 hours as needed for pain. Take with food. Do not take the same day as you take naproxen 90 tablet 3 ? cholecalciferol, Vitamin D3, (VITAMIN D3) 1,250 mcg (50,000 unit) cap capsule Take 1 capsule by mouth one time a week for 4 doses. 4 capsule 6 ? FLUoxetine (PROZAC) 20 mg capsule Take 1 capsule by mouth once daily. 30 capsule 11 ? buPROPion XL (WELLBUTRIN XL) 300 mg 24 hr tablet Take 1 tablet by mouth once daily. 30 tablet 11 ? levoFLOXacin (LEVAQUIN) 500 mg tablet Take 500 mg by mouth once daily. ? ? ? [facility] E0651/[facility] E067/ Leg Appliance ? Dx: Lymphedema I89.0 Right Lower Extremity Lifetime Usage 1 Each 0 ? No current facility-administered medications for this visit. ? ? ALLERGIES: Patient has no known allergies. ? PERSONAL HISTORY: SOCIAL HISTORY Social History ? Tobacco Use ? Smoking status: Never ? Smokeless tobacco: Never Substance Use Topics ? Alcohol use: No ? Drug use: No ? FAMILY HISTORY: FAMILY HISTORY FAMILY HISTORY Problem Relation Age of Onset ? Coronary Artery Disease Father ? ? age 67 from [place] ? Thyroid Mother ? ? ? REVIEW OF SYMPTOMS: GENERAL: denies fevers or chills ENDOCRINOLOGY: has not been on steroids Cardiology : denies palpitations or chest pain Respiratory: denies SOB or cough Hematology: denies history of prolonged bleeding or easy bruising or VTE Allergy: Denies history of personal or family history of allergy to anesthesia ? PHYSICAL EXAMINATION: ? VITALS: Blood pressure 132/86, weight (!) 360 lb (163.3 kg), last menstrual period 06/04/2018. ? GENERAL: The patient is well nourished, well hydrated in no acute distress. , The patient is oriented to time, place, and person. NECK: Supple. No lynphadenopathy, normal thyroid, no thyromegaly. LUNGS: Clear to auscultation bilaterally. no wheezes, rhonchi or rales HEART: Regular rate and rhythm, Normal heart sounds, and No murmurs or gallops ? ? IMPRESSION: PMB, endometrial polyp ? PLAN: The risks/benefits/alternatives and personal involved for the planned hysteroscopy D&C with polyp resection and possible IUD insertion were reviewed with the patient. Her questions were answered to her satisfaction and she desires to proceed. Consent was signed. I reviewed with her postop instructions and expectations. ? ? I have reviewed and updated past medical and surgical history, medications and allergies
[2022-11-14] VITALS (7 sets, daily range): BP systolic 104–156; BP diastolic 61–87; PULSE 77–86; RESP 16; TEMP 36.6–37.2; O2SAT 84–97; BMI 52.2
[2022-11-14 07:23] LABS: Absolute Lymphocyte Count 0.83 X10^3/uL (0.83-4.51); Absolute Neutrophil Count 4.6 X10^3/uL (2.0-7.7); Basophil# 0.02 X10^3/uL; Basophil% 0.3 % (0-1); Eosinophil# 0.09 X10^3/uL; Eosinophils% 1.5 % (0-5); Hematocrit 37.9 % (37-47); Hemoglobin 11.9 g/dL (12.0-15.0); Lymphocyte # 0.83 X10^3/ul (0.83-4.51); Lymphocyte % 13.9 % (19-41); Mean Corp Hgb Conc 31.4 g/dL (32-36); Mean Corpuscular Hgb 28.8 pg (27.0-32.0); Mean Corpuscular Volume 91.8 fL (81-99); Mean Platelet Vol. 10.8 fl (6.2-12.0); Monocyte# 0.44 X10^3/uL; Monocyte% 7.4 % (0-10); NRBC Flagged by Analyzer 0 % (0-5); Neutrophil # 4.58 X10^3/uL (2.7-7.7); Neutrophil % 76.6 % (47-70); Platelet Count 240 K/mm3 (150-450); RBC Distribution Width CV 14.1 % (11.6-14.6); RBC Distribution Width SD 47.2 fl (35.1-43.9); Red Blood Count 4.13 M/mm3 (4.2-5.4)
[2022-11-14] MEDS: Lactated Ringers 1,000 ML 15 ML IV (07:24)
--- NOTE | 2022-11-14 08:35 | EMB_PTH ---
PATIENT: MEGHA CIFUENTES LOC: [facility] U#:[id number] AGE/SX: 61/F ROOM: RE11/14/[address]: Dr. Linda Cherry, MDDOB: 1960 BED: DIS: 11/14/2022 SPEC #: [id number] RECD: 11/14/22 11:54 STATUS: STACIE DIXON #: [id number] JUAN PABLO: 11/14/22 08:[address]: Linda Cherry DEPT: SURGICAL PATHOLOGY RECD BY: Candace Escamilla ENTERED: 11/14/22 13:06 SP TYPE: ENDOM BX/C BARBARA DR: Dr. Ryder Narayanan MD Tissues: Endometrium, NOS Procedures: Surgery Specimen Level IV HEADER OPERATION: Hysteroscopy, D & C Symphion, polypectomy PRE-OP DIAGNOSIS: Postmenopausal bleeding, endometrial polyp TISSUE SUBMITTED: Endometrial curettings, polyp MICROSCOPIC DIAGNOSIS Endometrial curettings and polyp, polypectomy: Simple cystic endometrial hyperplasia without atypia. BAILEY:sarah 11/17/2022 MICROSCOPIC DESCRIPTION Slides are reviewed. GROSS DESCRIPTION Received in fixative is one container labeled with the patient's name and designated endometrial curettings, polyp. The specimen consists of multiple irregular fragments of pink soft tissue mixed with blood clot that in aggregate measure 5.0 x 3.0 x 0.3 cm. The specimen is totally submitted in two cassettes. / BAILEY:sarah 11/14/2022 TC:5 CPT: 32802
--- NOTE | 2022-11-14 08:43 | OP.PCM_ITS ---
Report of Operation Date of Procedure: 11/14/22 Pre-Operative Diagnosis: PMB, Endometrial polyp Post-Operative Diagnosis: same. Thickened endometrium. Surgery/Procedure Performed:: Hysteroscopy, D&C Description of Surgical Findings:: Tubal ostia visualized. uterine synichae noted. vascular tissue noted. One small polyp noted. Surgeon: Linda Cherry occupational health coordinator: None Type of Anesthesia: MAC Specimen's removed: endometrial curettings and endometrial polyp Drains: none Estimated Blood Loss (mL): <5cc Fluids Replaced: 600cc Description of Procedure: informed consent was obtained the patient was taken the operating room she was placed in supine position. legs were placed in stirrups and lithotomy position first due to back pain and previous knee replacement to make sure patient was comfortable and legs were not hyperflexed. then She was given anesthesia and was prepped and draped in the normal sterile fashion. At this time the weighted speculum was placed in the posterior fornix of vagina. Single-tooth tenaculum was used to gently grasp the anterior lip the cervix. At this time the uterine cavity was sounded to approximately 8 cm. Gentle dilatation was performed once adequate dilatation of the cervix was achieved the hysteroscope using normal saline as a distention medium was placed. Tubal ostia visualized, uterine synechaie and a small polyp arising from right lateral uterine wall noted. there was some irregular appearing yellow colored vascular appearing tissue present. Symphion resecting device used to obtain endometrial curettings and to perform polypectomy. Cavity remained intact, no defects. Tissue will be sent to pathology for evaluation. Tenaculum removed. Good hemostasis. Instrument, lap count correct x 2. Fluid deficit 600cc. Vaginal Sweep was negative. Grafts/Implants Used: none Procedure Start Time: 08:57 Procedure Stop Time: 09:13 Complications none Admit VTE Documentation VTE Present on Admission: Yes VTE Mechan Device Prophylaxis: SCD's VTE Pharm Prophylaxis ordered?: No Reason prophylaxis not ordered:: Procedure Not Indicated
--- NOTE | 2022-11-14 08:44 | DCINST_ITS ---
Discharge Instructions Diet Discharge Diet: No restrictions Activity May resume sexual activity in: 1 week Dressing / Incision Call your doctor if you observe: Fever of 101 or Higher, Inability to urinate, Using more than 1 pad per hour and Uncontrolled pain Follow Up Care Please Follow Up With: Linda Cherry MD When: 1-2 weeks post OP if you need an appointment please call [phone] Test Results: Test results from this visit will be discussed in further detail at your follow- up appointment, if applicable. Discharge Plan Admission Attending Provider: Linda Cherry Primary Care Provider: Ryder Narayanan Discharge Orders/Prescriptions Prescriptions: No Action fluoxetine 20 MG capsule 20 mg PO DAILY bupropion HCl 150 MG tablet extended release 24 hr 150 mg PO DAILY temazepam 15 MG capsule 15 mg PO QHS PRN PRN (Reason: Sleep) levofloxacin 500 mg tablet 500 mg PO Q24H Patient Comments: TAKE ONE TABLET BY MOUTH DAILY AT 9AM (VIAL) naproxen 500 mg tablet Patient Comments: TAKE ONE TABLET BY MOUTH TWICE DAILY WITH FOOD NEEDED FOR PAIN & AND FOR INFLAMMATION (VIAL) Referrals / Follow Up: Ryder Narayanan MD [Primary Care Provider] - Disposition Disposition (needs filled in before D/C Order can be placed): Home, Self Care
== END 2022-11-14 10:57 | disposition home or self-care (01) ==
LOC: SDC 06:46 → AC 06:47
PROVIDERS: PCP Family Medicine; Referring Provider Obstetrics & Gynecology; Visit Provider Obstetrics & Gynecology
PROC: 0UB98ZZ Excision of Uterus, Via Natural or Artificial Opening Endoscopic (ICD-10-PCS; CPT 58558; principal; 2022-11-14 08:20)
DX: N85.01 Benign endometrial hyperplasia (principal); N95.0 Postmenopausal bleeding; M51.36 Other intervertebral disc degeneration, lumbar region; M51.37 Other intervertebral disc degeneration, lumbosacral region; M19.90 Unspecified osteoarthritis, unspecified site; G47.30 Sleep apnea, unspecified; Z79.899 Other long term (current) drug therapy
CPT/HCPCS: 58558; 00952; 85025; 88305; J7120; J2405

== ENCOUNTER 2024-11-09 12:32 | Emergency (ER) | payer MEDICARE, SELFPAY ==
[2024-11-09 12:33] VITALS: BP 167/97; PULSE 92; RESP 17; TEMP 36.8; O2SAT 97; BMI 54.1
[2024-11-09 13:10] LABS: Hematocrit 39.9 % (37-47); Hemoglobin 13.0 g/dL (12.0-15.0); Immature Granulocytes Count 0.020 X10^3/uL (0.0-0.0); Mean Corp Hgb Conc 32.6 g/dL (32-36); Mean Corpuscular Volume 97.3 fL (81-99); Mean Platelet Vol. 10.3 fl (6.2-12.0); NRBC Flagged by Analyzer 0 % (0-5); POSITIVE DIFFERENTIAL YES; Platelet Count 183 K/mm3 (150-450); RBC Distribution Width CV 14.0 % (11.6-14.6); RBC Distribution Width SD 50.2 fl (35.1-43.9); Red Blood Count 4.10 M/mm3 (4.2-5.4); White Blood Count 4.0 K/mm3 (4.4-11.0)
[2024-11-09 14:06] LABS: Anion Gap 10 (5-15); BUN 8 mg/dL (4-19); BUN/Creat Ratio 11.6 RATIO (10-20); Calcium,Total 8.6 mg/dL (7.6-11.0); Carbon Dioxide 24.6 mmol/L (21.0-32.0); Chloride 102 mmol/L (98-108); Estimated Creatinine Clearance 152.54 ml/min (50-250); Glucose 99 mg/dL (70-99); Potassium 4.4 mmol/L (3.3-5.1)
--- NOTE | 2024-11-09 15:07 | EDS_ITS ---
HPI History of Present Illness Chief Complaint: Cellulitis Narrative Narrative: Patient is a 63-year-old female presenting to the emergency department for a wound on her right lower leg. Patient has a past medical history of leg edema, venous insufficiency and morbid obesity. Patient states that she got home from work who was sitting on the porch when she felt something crawling up her leg. She looked down and saw maggot. She states it was coming from her lower leg. She then saw a wound that she never noticed before. Denies fever, chills, nausea, vomiting. Denies chest pain or SOB. States that she has been working and ambulating fine. States she feels well. [facility] Medical History Wears dentures Alcohol use Arthritis Restless legs Injury of head and neck Non-smoker CPAP (continuous positive airway pressure) dependence Sleep apnea History of edema History of pain when walking History of echocardiogram PERIPROSTETIC KNEE INFECTION Home Medications ?Medication ?Instructions ?Recorded ?Last Taken ?Type fluoxetine 20 mg capsule 20 mg PO DAILY mental health 11/22/16 05/25/17 History bupropion HCl 150 mg 24 hr tablet, 150 mg PO DAILY DEP RESSION 01/12/17 05/25/17 History extended release temazepam 15 mg capsule 15 mg PO QHS PRN PRN Sleep 0 03/27/17 05/25/17 History levofloxacin 500 mg tablet 500 mg PO Q24H 11/07/22 Unk nown History naproxen 500 mg tablet mg 11/14/22 11/14/22 06:00 H istory cephalexin 500 mg capsule 500 mg PO Q6 5 days #24 CAPS ULES 11/09/24 Unknown Rx Allergy/AdvReac Type Severity Reaction Status Date / Time No Known Allergies Allergy Verified 11/14/22 07:06 Family History Father Myocardial infarction Mother Myocardial infarction Surgical History History of hernia surgery History of History of arthroplasty of right ankle Status post bilateral hip replacements Status post bilateral knee replacements Social History Smoking Status: Never smoker alcohol intake: never ROS ROS ED ROS Narrative see HPI EXAM Physical Exam Narrative Exam Narrative: Vital signs: Reviewed General: Alert and orientedx3. No acute distress. Obese. HEENT: Head is normocephalic and atraumatic, sinuses nontender, pupils equal round and reactive. Nares are patent. Oropharynx and throat exams normal. Neck: Supple without lymphadenopathy nontender Cardiovascular: Regular rate and rhythm, no murmurs. No rubs or gallops. Normal S1 and S2 Respiratory: Clear to auscultation bilaterally. No wheezes, rales, rhonchi Abdominal: Soft and nontender. Normal bowel sounds. No guarding or rebound. Nonsurgical abdomen Extremities: Leg edema bilaterally that is symmetric. Nontender. There is a skin fold to the right medial lower leg with overlying skin disruption. Very mild erythema surrounding this. No fluctuance or warmth. No tenderness. No bruising. Normal range of motion. Normal sensation. Skin: No rash or redness. Neurological: Cranial nerves II through XII are grossly intact. Normal strength and sensation. Normal cerebellar function The rest of the physical exam is unremarkable Const Vital Signs: 11/09/24 12:33 Temperature 98.3 F Temperature Source Oral Pulse Rate 92 Respiratory Rate 17 Blood Pressure 167/97 H Blood Pressure Mean 120 Pulse Ox 97 Oxygen Delivery Method Room Air MDM MDM MDM Narrative Medical decision making narrative: Patient is a 63-year-old female presenting to the emergency department for a wound check. Patient was seen and examined. Vitals are stable. Patient resting bed comfortably no acute distress. Before I evaluated the patient and the nursing staff did clean the wound extensively. Reportedly there were maggots in the wound. The skin fold has no overt signs of infection. The swelling of her legs is bilateral and is chronic in nature. There is no tenderness to palpation of the legs. No signs of DVT. Likely chronic lymphedema. She has no shortness of breath or chest pain. She is able to ambulate at home she states. W CBC with no leukocytosis and a normal hemoglobin. BMP with no significant abnormalities. Patient was given a dose of Keflex here. She was given a prescription for Keflex for home. She was given wound care referral follow-up as well. Patient discharged from the Emergency Department. I do not feel that the patient's evaluation reveals any acute reason for admission at this time. I instructed them to either follow-up with their primary care physician or promptly return to the Emergency Department for reevaluation should symptoms worsen or new symptoms develop. I explained what symptoms would indicate the need to return to the emergency department. Shared decision making was used. The patient voiced understanding of the treatment plan and is agreeable with it. Clinical Impression: Leg wound History & Record Review Discussion w/independent historian: Patient Lab Data Attestation: I reviewed the patient's lab results. Labs: Laboratory Results - last 24 hr 11/09/24 12:58 WBC 4.0 L RBC 4.10 L Hgb 13.0 Hct 39.9 MCV 97.3 MCH 31.7 MCHC 32.6 RDW Std Deviation 50.2 H RDW Coeff of Viktoria 14.0 Plt Count 183 MPV 10.3 Immature Gran % (Auto) 0.500 Neut % (Auto) 78.3 H Lymph % (Auto) 10.9 L [place] % (Auto) 8.4 Eos % (Auto) 1.7 Baso % (Auto) 0.2 Absolute Neuts (auto) 3.2 Absolute Lymphs (auto) 0.44 L Nucleated RBC % 0 Sodium 137 Potassium 4.4 Chloride 102 Carbon Dioxide 24.6 Anion Gap 10 BUN 8 Creatinine 0.67 L Estim Creat Clear Calc 152.54 Est GFR (MDRD) Non-Af 99 BUN/Creatinine Ratio 11.6 Glucose 99 Calcium 8.6 Discharge Plan Triage Chief Complaint: Cellulitis ED Provider: Philomena Zhu Dx/Rx/DC Orders Clinical Impression: Leg wound, right, Morbid obesity, Leg swelling Instructions: Cellulitis Dc, ED Lymphedema Prescriptions: New cephalexin 500 mg capsule 500 mg PO Q6 5 Days Qty: 24 0RF No Action fluoxetine 20 MG capsule 20 mg PO DAILY bupropion HCl 150 MG tablet extended release 24 hr 150 mg PO DAILY temazepam 15 MG capsule 15 mg PO QHS PRN PRN (Reason: Sleep) levofloxacin 500 mg tablet 500 mg PO Q24H Patient Comments: TAKE ONE TABLET BY MOUTH DAILY AT 9AM (VIAL) naproxen 500 mg tablet Patient Comments: TAKE ONE TABLET BY MOUTH TWICE DAILY WITH FOOD NEEDED FOR PAIN & AND FOR INFLAMMATION (VIAL) Primary Care Provider: Ryder Narayanan Referrals: Wound Health [Outside] - 1 Day Ryder Narayanan MD [Primary Care Provider] - 2 Days Activity Restrictions/Additional Instructions: Take the antibiotic 4 times a day for 5 days as prescribed. Please follow-up with the wound care center soon as possible. Your evaluation in the Emergency Department did not reveal any acute reason for admission. However, I want to emphasize that you may be early in the course of a disease process or illness even if it is not present. For this reason you should follow-up within 24 hours for reevaluation with either your primary care physician or if necessary back here in the Emergency Department. You should return to the Emergency Department immediately if your symptoms worsen or new symptoms develop. Print Language: Moroccan Disposition Disposition: Home, Self Care
[2024-11-09 15:30] VITALS: BP 159/91; PULSE 93; RESP 17; TEMP 36.9; O2SAT 98
--- NOTE | 2024-11-09 15:30 | ED.RN ---
this nurse d/c pt to her daughter who brought pt new clothing. this nurse gave pt her abx po keflex and d/c paper work. pt denied any further questions at this time
[2024-11-09 15:31] VITALS: BP 159/91; PULSE 93; RESP 17; O2SAT 98
== END 2024-11-09 15:36 | disposition home or self-care (01) ==
PROVIDERS: Emergency Provider Student in an Organized Health Care Education/Training Program; PCP Family Medicine; Visit Provider Student in an Organized Health Care Education/Training Program
DX: S81.801A Unspecified open wound, right lower leg, initial encounter (principal); E66.01 Morbid (severe) obesity due to excess calories; M79.89 Other specified soft tissue disorders; Y99.0 Civilian activity done for income or pay; R60.0 Localized edema; B87.0 Cutaneous myiasis; X58.XXXA Exposure to other specified factors, initial encounter
CPT/HCPCS: 80048; 85025; 99285; A4216

== ENCOUNTER → 2024-11-14 | Outpatient (CLI) | payer MEDICARE, SELFPAY ==
[2024-11-14 10:01] VITALS: BP 146/94; PULSE 84; RESP 18; TEMP 35.6; BMI 53.1
--- NOTE | 2024-11-14 10:45 | LES_PTH ---
PATIENT: MEGHA CIFUENTES LOC: . U#:[id number] AGE/SX: 63/F ROOM: RE11/14/[address]: Dr. Miguel Angel Vargas MD : 1960 BED: DIS: 11/14/2024 SPEC #: [id number] RECD: 11/14/24 15:02 STATUS: STACIE REJuan Miguel #: [id number] JUAN PABLO: 11/14/24 10:[address]: Miguel Angel Vargas DEPT: SURGICAL PATHOLOGY RECD BY: Sudheer Hewitt ENTERED: 11/15/24 09:12 SP TYPE: Lesion OTHR DR: MD Dr. Ryder Cherry MD Tissues: A - Skin of leg, NOS B - Skin of leg, NOS Procedures: Special Stain Group I Surgery Specimen Level IV GMS Stain (control) HEADER OPERATION: Tissue biopsy right leg x2 sites PRE-OP DIAGNOSIS: Non-healing ulcers, right leg TISSUE SUBMITTED: A- Proximal right leg ulcer, B- Distal right leg ulcer MICROSCOPIC DIAGNOSIS A. Skin, right leg proximal, punch biopsy: - Acute and chronic inflammation with chronic stasis change - see Comment. - PASD stain negative for fungal organisms. B. Skin, right leg distal, punch biopsy: - Acute and chronic inflammation with eosinophils and stasis change - see Comment. - PASD stain negative for fungal organisms. COMMENT: The findings are favored to be reactive and consistent with chronic stasis. A secondary infection, especially given the degree of acute inflammation in part B, cannot be excluded. Selected slides/images were reviewed in intradepartmental consultation by Dr Amy Arcos (dermatopathology division, [facility]). MICROSCOPIC DESCRIPTION Slides are reviewed. ?All matched controls reacted appropriately. These tests were developed and their performance characteristics determined by [facility]. They may not have been cleared or approved by the U.S. Food and Drug Administration. The FDA has determined that such clearance or approval is not necessary.? The above immunohistochemical?markers and/or special stains have been reviewed by the Pathologist. GROSS DESCRIPTION Received in 2 formalin containers labeled with the patient's name and date of . Designated as: A. Proximal R leg biopsy is a 0.2 x 0.2 cm sinclair skin punch excised to a maximum depth of 0.4 cm. The resection margin is inked green. Entirely submitted in 1 cassette. B. R distal leg biopsy is a 0.2 x 0.2 cm sinclair skin punch excised to a maximum depth of 0.4 cm. The resection margin is inked blue. Entirely submitted in 1 cassette. NM 11/15/2024PT:[id number]
--- NOTE | 2024-11-14 10:56 | PCM.WC.HP ---
History of Present Illness Date of Service: 11/14/24 Chief Complaint: Bilateral lower extremity swelling and edema, right greater than left History of Wound: Christin Hdz is a 63-year-old female presenting with bilateral lower extremity swelling and a presumed right posterior leg venous stasis ulcer. The patient has a history of bilateral knee and hip replacements, with the right leg being consistently larger due to multiple surgeries, including a hip, three knee, and an ankle surgery. She experienced a significant increase in swelling in both legs a couple of weeks ago, accompanied by a weight gain of 10 pounds within a week. The patient has been experiencing shortness of breath over the past couple of weeks, which has been a new development. The patient has not been taking any diuretics and has not experienced fever or chills. She has been advised to consider a water pill to manage the fluid retention. Patient presented to the emergency department at [facility] on 09 November 2024 for the presumed right lower extremity venous stasis ulcer in the setting of seeing maggots coming in and out of the wound bed. The wound was irrigated and washed out in the emergency department and cleaned. She is not been doing anything for dressing since. They did not admit her. She had a normal white blood cell count and stable vital signs. Today at the wound care center she has stable vital signs and reports that there have not been any maggots coming in and out of the wound since her visit to the emergency department. She does not currently have a consistent primary care provider. ROS: - Cardiovascular: Reports bilateral lower extremity swelling. Denies chest pain. - Respiratory: Reports shortness of breath over the past couple of weeks. Denies cough or wheezing. - General: Denies fever or chills. Attestation: Documentation on this patient encounter was supported using ambient scribe technology/ voice AI technology. The patient consented to recording for the purpose of documenting the encounter. Provider reviewed content of the generated note prior to signature. [facility] Medical History Wears dentures Alcohol use Arthritis Restless legs Injury of head and neck Non-smoker CPAP (continuous positive airway pressure) dependence Sleep apnea History of edema History of pain when walking History of echocardiogram PERIPROSTETIC KNEE INFECTION Home Medications ?Medication ?Instructions ?Recorded ?Last Taken ?Type fluoxetine 20 mg capsule 20 mg PO DAILY mental health 11/22/16 05/25/17 History bupropion HCl 150 mg 24 hr tablet, 150 mg PO DAILY DEPRESSION 01/12/17 05/25/17 History extended release temazepam 15 mg capsule 15 mg PO QHS PRN PRN Sleep 03/27/17 05/25/17 History levofloxacin 500 mg tablet 500 mg PO Q24H 11/07/22 Unknown History naproxen 500 mg tablet mg 11/14/22 11/14/22 06:00 History cephalexin 500 mg capsule 500 mg PO Q6 5 days #24 CAPSULES 11/09/24 Unknown Rx Allergy/AdvReac Type Severity Reaction Status Date / Time No Known Allergies Allergy Verified 11/14/24 09:58 Family History Father Myocardial infarction Mother Myocardial infarction Surgical History History of hernia surgery History of History of arthroplasty of right ankle Status post bilateral hip replacements Status post bilateral knee replacements Social History Smoking Status: Never smoker alcohol intake: never Vital Signs Vital Signs Vital Signs: 11/14/24 10:01 Temperature 96.1 F L Temperature Source Temporal Pulse Rate 84 Respiratory Rate 18 Blood Pressure 146/94 H Blood Pressure Mean 111 Blood Pressure Source Monitor Blood Pressure Position Sitting Blood Pressure Location Right Forearm Oxygen Delivery Method Room Air Weight Weight: 370 lb Body Mass Index (BMI) 53.1 Physical Exam Narrative - Cardiovascular: Blood pressure 146/94 mmHg, pulse 84 bpm - Integumentary: 4+ pitting edema on lower extremities, 2+ dorsalis pedis pulses bilaterally, chronic lymphedema changes on distal right leg, 10 x 10 cm venous stasis ulcer on right leg. No discrete fluid collections/abscess and no real induration/cellulitis - General: No fever, temperature 96.1?F Resp normal respiratory effort Auscultation: clear to auscultation bilaterally and other no crackles or signs of fluid at the lung bases Cardio regular rate and regular rhythm Heart Sounds: S1 normal and S2 normal Debridement Note Debridement Note No debridement was completed: No debridement was completed today Post-Debridement Measurements and Additional Note: Post-Debridement Measurements/Treatment WC - Nurse 1 - General Ulcer Assessment Start: 11/14/24 10:01 Freq: Status: Active Protocol: SHIVA.LOWEXT Activity Type Activity Date Activity User E-sign Co-sign Detail Recorded Client Recorded Date Recorded By Document 11/14/24 10:01 NIDA [id number] 11/14/24 10:15 11/14/24 10:01 - Today's Visit Information Type of service Initial Visit Arrival Mode Ambulatory Patient Identification Verified (Name & Yes ) Height and Weight Height 5 ft 10 in Weight 370 lb Weight in Pounds 370.0 lbs Weight Measurement Method Estimated by Patient Body Mass Index (BMI) 53.1 BMI Classification Obese Vital Signs Temperature (97.8 F-99.1 F) 96.1 F L Temperature Source Temporal Pulse Rate (60-100) 84 Pulse Location Monitor Respiratory Rate (12-18) 18 Respiratory rate source Observation Oxygen Delivery Method Room Air Blood Pressure (90/60-120/80) 146/94 H Blood Pressure Mean 111 Source Monitor Position Sitting Blood Pressure Location Right Forearm History Since Last Visit- (Skip if this is Patient's initial visit) Left Footwear Regular Shoe Right Footwear Regular Shoe Pain Scale: 0-10 Numeric Is Patient Pain Free? Yes Communication Assessment Preferred language [place] Timorese Hog Cooler Required No Able to Read Yes Able to Write Yes Communication Tools None Caregiver Communication Skills No Impairment Impairment Right Hearing Abillity Normal Left Hearing Abillity Normal Visual Assistive Devices Glasses Teaching Assessment Preferences Verbal,Written, Demonstration Barriers to Learning None Readiness To Learn Excellent Willingness to Engage in Self Management High Activies Readiness to Engage in Self Management High Activities Anxiety Level Calm Cooperation Cooperative Perception Coherent Interest in Health Problem Asks Questions Education Importance Acknowledges Need Does Patient Smoke tobacco or other No substances Smoking Status Never smoker Is Patient Diabetic No Functional Assessment Recent Decline in Ability to Perform Denies Any Declines Culture/Religion/Clearing Distribution Clerk Cultural/Religion Needs that may affect No Treatment Plan Would you allow our hospital roadmaster to No meet you for the purpose of spiritual/ emotional support? Clearing Distribution Clerk to contact place of christian No - Nurse 1 - General Ulcer Measurement Start: 11/14/24 10:01 Freq: Status: Active Protocol: Activity Type Activity Date Activity User E-sign Co-sign Detail Recorded Client Recorded Date Recorded By Document 11/14/24 10:01 NIDA [id number] 11/14/24 10:15 11/14/24 10:01 Wound Center Nurse 1 Right Calf (cm) 68.5 Right Ankle (cm) 42.5 Left Calf (cm) 65 Left Ankle (cm) 42.5 WC - Nurse 2 - General Ulcer CM Notes Start: 11/14/24 10:01 Freq: Status: Active Protocol: Activity Type Activity Date Activity User E-sign Co-sign Detail Recorded Client Recorded Date Recorded By Document 11/14/24 10:34 [id number] 11/14/24 10:40 JF Document 11/14/24 10:53 [id number] 11/14/24 10:54 JF 11/14/24 11/14/24 10:34 10:53 Pain Scale: 0-10 Numeric Is Patient Pain Free? Yes Yes Charges/Coding Visit Charges Office Visits / Consults: 74326 OV L3 New 30min Multi Select Codes Integumentary Integumentary CPT Codes: 35260 Punch bx skin single lesion Assessment/Plan Assessment/Plan (1) Leg wound, right: CODE(S): S81.801A - Unspecified open wound, right lower leg, initial encounter PLAN: Plan for ankle-brachial indices (ABIs) (cannot recommend compression until we better assess lower extremity inflow), venous duplex ultrasonography (bilateral lower extremity), CMP, prealbumin, and A1c. Biopsies were performed today of the wound (to rule out squamous cell carcinoma) 2 to 3 mm punch biopsies were taken in 2 separate locations proximal and distal on the wound, and were sent separately to pathology. The area was anesthetized with an alcohol swab and 7 cc of 1% lidocaine with 1-200,000 epinephrine was injected in 2 different locations. The punches were obtained and sent in formalin. Hemostasis was obtained with silver nitrate and pressure, as well as the epinephrine from the local anesthesia. We will follow-up biopsy results For dressing changes we will provide [employer] daily for dressing changes. Follow-up next week with Dr. Kadi Livingston as I will be out of town. PLAN: Plan My official recommendation from today's visit was to go to the emergency department. This was communicated clearly to the patient. I believe her swelling is to profound and she needs admission for potential diuresis, especially in the setting of recent shortness of breath and recent weight gain. She is resistant to this option and declined at this time as she would like to go back to her job this afternoon. I talked her about the risks, benefits, and alternatives to going to the emergency department. Instead she has agreed to go to an behavioral school counselors. I am referring her to [facility] for an urgent consultation.
--- NOTE | 2024-11-15 10:33 | WC ---
PHOTO-RIGHT POST LE 11/14/24
--- OUTSIDE RECORDS SUMMARY | 2024-11-19 11:49 | XMS RPT_ITS | CCD ---
Author Organization [facility] Care Team Providers Care Block Sawyer Name Role Phone Unavailable Unavailable Unavailable Clint Devine Unavailable Unavailable Clint Devine Unavailable Unavailable Clint Devine Unavailable Unavailable Clint Devine Unavailable Unavailable Ty Narayanan MD Primary Care Provider [phone] Ty Narayanan MD Primary Care Provider Ty Narayanan MD Primary Care Provider Dr. Ty Narayanan Primary Care Provider Dr. Ty Narayanan Referring Provider CARMELLA Beauchamp Attending Provider Dr. Rafael Morales Attending Provider Dr. Mark Mon Attending Provider Ty Narayanan MD Primary Care Provider Edil CYTOLOGY SUPERVISOR.Bronwyn NOONAN Unavailable Andrew CYTOLOGY SUPERVISORRaghu ECHEVARRIA Unavailable TY NARAYANAN Primary Care Unavailable BRONWYN SOLO Referring UnavailBRONWYN Ernandez Attending UnavailDr. Ty Taylor MD Primary Care Provider [phone] Dr. Philomena Zhu MD Emergency Provider Unavailab Miguel Angel Abdi Attending Unavailable Miguel Angel Vargas Consulting Unavailable Ty Narayanan Primary Care Unavailable Philomena Zhu Referring Unavailable Philomena Zhu Attending Unavailable Ty Narayanan Primary Care Unavailable Miguel Angel Vargas Attending Unavailable Ty Narayanan Primary Care Unavailable Philomena Zhu Referring Unavailable Medications Current Medications Medication Drug Class(es) Dates Sig (Normalized) Sig (Original) cephalexin 500 mg oral capsule (9 sources) Cephalosporin Antibacterial Start: 11-09-2024 take 1 capsule by mouth every six hours Cephalexin 500 mg capsule Active 500 mg PO EVERY 6 HOURS 24 5 0 November 09, 2024 12:00am Start: 01-02-2018 End: 08-17-2018 take 1 capsule by mouth every six hours Cephalexin 500 MG capsule Discontinued 500 mg PO EVERY 6 HOURS 40 0 January 02, 2018 12:00am August 17, 2018 11:10am Start: 05-01-2015 End: 06-26-2015 take 1 capsule by mouth every twelve hours Cephalexin 500 MG capsule Discontinued 500 mg PO EVERY 12 HOURS 10 0 May 01, 2015 1:00am June 26, 2015 4:30pm cholecalciferol 1.25 mg oral capsule (20 sources) Vitamin D Start: 11-08-2020 End: 05-04-2025 take 1 capsule by mouth every week cholecalciferol, Vitamin D3, (VITAMIN D3) 1,250 mcg (50,000 unit) cap capsule Indications: Vitamin D deficiency Take 1 capsule by mouth one time a week. 12 capsule 3 05/04/2024 05/04/2025 Active Comment on above: Take 1 capsule by [facility] one time a week for 4 doses. doxycycline hyclate 100 mg oral tablet (9 sources) Tetracycline- class Drug Start: 05-04-2024 End: 05-14-2024 take 1 tablet by mouth twice daily doxycycline (VIBRA-TABS) 100 mg tablet Indications: Cellulitis of right lower extremity Take 1 tablet by mouth two times a day for 10 days. 20 tablet 05/04/2024 05/14/2024 Active Start: 01-02-2018 End: 08-17-2018 Doxycycline Discontinued Dec 2:11am August 17, 2018 11:10am Start: 01-02-2018 End: 08-17-2018 Doxycycline Discontinued Dec 12:00am August 17, 2018 11:10am Start: 01-02-2018 End: 08-17-2018 Doxycycline Discontinued Dec 11:00pm August 17, 2018 10:10am Start: 04-12-2017 End: 05-28-2017 take 1 capsule by mouth twice daily Doxycycline Monohydrate 100 MG capsule Discontinued 100 mg PO TWICE A DAY 0 30 0 April 12, 2017 1:00am May 28, 2017 1:14pm Per infectious disease will require oral antibiotic for 1 year postoperatively FLUoxetine 10 mg oral capsule (20 sources) Serotonin Reuptake Inhibitor Start: 05-04-2024 End: 10-31-2024 take 1 capsule by mouth once daily FLUoxetine (PROZAC) 10 mg capsule Indications: Situational stress , Major depressive disorder, recurrent episode, moderate (HCC) Take 1 capsule by mouth once daily. 90 capsule 1 05/04/2024 Active Start: 11-22-2016 End: 05-04-2024 take 1 capsule by mouth once daily FLUoxetine (PROZAC) 20 mg capsule Indications: Situational stress , Major depressive disorder, recurrent episode, moderate (HCC) Take 1 capsule by mouth once daily. 30 capsule 11 04/16/2023 05/04/2024 Discontinued Start: 08-16-2013 End: 09-07-2013 take 1 capsule by mouth once daily Fluoxetine 20 MG capsule Discontinued 20 mg PO DAILY August 16, 2013 12:00am September 07, 2013 10:05am Comment on above: Take 1 capsule by mo [facility] once daily. hydrocortisone 25 mg/ml topical cream (10 sources) Corticosteroid Start: 024 hydrocortisone (ANUSOL-HC) 2.5 % rectal cream by RECTAL route two times a day. 28 g 1 08/14/2023 Active ibuprofen 800 mg oral tablet (20 sources) Nonsteroidal Anti-inflammatory Drug Start: 023 End: 025 take 1 tablet by mouth every eight hours as needed for pain ibuprofen (MOTRIN) 800 mg tablet Indications: Degeneration of intervertebral disc of lumbar region with discogenic back pain Take 1 tablet by mouth every 8 hours as needed for pain. Take with food. Do not take the same day as you take naproxen 90 tablet 3 05/04/2024 Active Start: 05-10-2021 take 1 tablet by staci th every eight hours as needed ibuprofen (MOTRIN) 800 mg tablet Take 1 tablet by mouth every 8 hours as needed for pain. Take with food. Do not take the same day as you take naproxen 90 tablet 3 05/10/2021 Active Comment on above: Take 1 tablet by staci every 8 hours as needed for pain. Take with food. Do not take the same day as you take naproxen levoFLOXacin 500 mg oral tablet (20 sources) Quinolone Antimicrobial Start: 11-08-19 take 1 tablet by mouth every twenty-four hours Levofloxacin 500 mg tablet Active 500 mg PO Q24H November 07, 2022 12:00am Start: 06-17-2019 take 1 tablet by staci th once daily levoFLOXacin (LEVAQUIN) 500 mg tablet Take 500 mg by mouth once daily. 06/17/2019 Active Comment on above: Take 500 mg by mouth once daily. naproxen 500 mg oral tablet (20 sources) Nonsteroidal Anti-inflammatory Drug Start: 11-14-2022 Naproxen Active MG November 14, 2022 12:00am Start: 12-11-2021 End: 05-04-2024 Naproxen 500 mg tablet Activ e mg November 14, 2022 12:00am Start: 12-20-2020 take 1 tablet by staci th twice daily at mealtime as needed for pain naproxen (NAPROSYN) 500 mg tablet TAKE ONE TABLET BY MOUTH TWICE DAILY WITH FOOD NEEDED FOR PAIN AND INFLAMMATION 60 tablet 5 12/20/2020 Active Comment on above: TAKE ONE TABLET BY M OUTH TWICE DAILY WITH FOOD NEEDED FOR PAIN AND INFLAMMATION temazepam 15 mg oral capsule (20 sources) Benzodiazepine Start: End: take 1 capsule by mouth at bedtime as needed temazepam (RESTORIL) 15 mg Indications: Insomnia, unspecified type Take 1 capsule by mouth at bedtime as needed for up to 90 days. 90 capsule 10/27/2024 01/25/2025 Active Start: 04-20-2024 End: 10-17-2024 take 1 capsule by mouth at bedtime as needed temazepam (RESTORIL) 15 mg Indications: Insomnia, unspecified type Take 1 capsule by mouth at bedtime as needed for up to 180 days. 90 capsule 1 04/20/2024 10/17/2024 Active Start: 04-16-2023 End: 04-27-2024 take 1 capsule by mouth at bedtime as needed temazepam (RESTORIL) 15 mg Indications: Insomnia, unspecified type Take 1 capsule by mouth at bedtime as needed for up to 90 days. 90 capsule 01/28/2024 04/20/2024 Discontinued Start: 12-17-2022 End: 03-17-2023 take 1 capsule by mouth at bedtime as needed temazepam (RESTORIL) 15 mg Indications: Insomnia, unspecified type Take 1 capsule by mouth at bedtime as needed for up to 90 days. 30 capsule 2 12/17/2022 03/17/2023 Active Start: 03-27-2017 End: 12-03-2022 take 1 capsule by mouth at bedtime as needed temazepam (RESTORIL) 15 mg Indications: Insomnia, unspecified type Take 1 capsule by mouth at bedtime as needed for up to 90 days. 30 capsule 2 09/04/2022 12/03/2022 Active Start: 12-29-2016 End: 01-29-2017 take 1 capsule by mouth at bedtime as needed for sleep Temazepam 15 MG capsule Discontinued 15 mg PO AT BEDTIME NEEDED as needed for Sleep 20 January 12, 2017 11:59am January 29, 2017 9:38pm Comment on above: TAKE 1 CAPSULE BY MO UTH AT BEDTIME NEEDED FOR 30 DAYS TAKE 1 CAPSULE BY MO UTH AT BEDTIME NEEDED Take 1 capsule by mo uth at bedtime as needed for up to 90 days. Completed/Discontinued Medications Medication Drug Class(es) Dates Sig (Normalized) Sig (Original) acetaminophen 500 mg oral tablet (8 sources) Start: 01-29-2017 End: 04-12-2017 take 1 tablet by mouth every four hours as needed for pain Acetaminophen 500 MG tablet Discontinued 500 mg PO EVERY 4 HOURS NEEDED as needed for Mild Pain (1-3/10) 0 January 29, 2017 1:00am April 12, 2017 12:22pm Start: 08-16-2013 End: 08-31-2013 Acetaminophen (Tylenol) 325 MG tablet Discontinued 325 mg PO NEEDED as needed for Pain August 16, 2013 12:00am August 31, 2013 12:20pm acetaminophen 325 mg / HYDROcodone bitartrate 5 mg oral tablet (8 sources) Opioid Agonist Start: 08-31-2013 End: 09-07-2013 Hydrocodone-Acetaminophen 1 TABLET tablet Discontinued 1 - 2 {tbl} PO EVERY 4 HOURS NEEDED as needed for MILD-MODERATE (PAIN SCALE 1-5) 1 0 August 31, 2013 12:00am September 07, 2013 10:05am Start: 08-31-2013 End: 09-07-2013 take 1 tablet by mouth every four hours as needed Hydrocodone-Acetaminophen Discontinued 1 - 2 TABLET PO EVERY 4 HOURS NEEDED August 31, 2013 12:00am September 07, 2013 10:05am Start: 08-16-2013 End: 08-31-2013 Hydrocodone-Acetaminophen (V icodin 5-300 Mg Tablet) 1 EACH tablet Discontinued 2 {tbl} PO EVERY 6 HOURS NEEDED as needed for Pain August 16, 2013 12:00am August 31, 2013 12:20pm acetaminophen 325 mg / oxyCODONE hydrochloride 5 mg oral tablet (4 sources) Opioid Agonist Start: 05-01-2015 End: 06-26-2015 Oxycodone-Acetaminophen 1 TABLET tablet Discontinued 1 - 2 {tbl} PO EVERY 4 HOURS NEEDED as needed for Pain May 01, 2015 1:00am June 26, 2015 4:29pm Start: 05-01-2015 End: 06-26-2015 take 1 tablet by mouth every four hours as needed Oxycodone-Acetaminophen Discontinued 1 - 2 TABLET PO EVERY 4 HOURS NEEDED May 01, 2015 1:00am June 26, 2015 4:29pm amoxicillin 500 mg oral capsule (1 source) Penicillin-class Antibacterial Start: 09-02-2015 End: 06-21-2021 amoxicillin (POLYMOX, AMOXIL) 500 mg capsule Indications: Status post total right knee replacement 4 capsules before dental work 4 capsule 4 09/02/2015 06/21/2021 Discontinued Comment on above: 4 capsules before de ntal work aspirin 81 mg chewable tablet (12 sources) Platelet Aggregation Inhibitor, Nonsteroidal Anti-inflammatory Drug Start: 01-29-2017 End: 04-12-2017 take 1 tablet by mouth twice daily at mealtime Aspirin 81 MG Tab.Chew Discontinued 81 mg PO TWICE DAILY WITH MEALS March 27, 2017 11:56am April 12, 2017 12:22pm BLOOD THINNER Start: 05-01-2015 End: 06-26-2015 take 1 tablet by mouth twice daily Aspirin 325 MG tablet Discontinued 325 mg PO TWICE A DAY 30 0 May 01, 2015 1:00am June 26, 2015 4:31pm 24 hr buPROPion hydrochloride 150 mg extended release oral tablet (20 sources) Aminoketone Start: 04-17-2020 End: 05-04-2024 take 1 tablet by mouth once daily buPROPion XL (WELLBUTRIN XL) 300 mg 24 hr tablet Take 1 tablet by mouth once daily. 30 tablet 04/17/2020 05/04/2024 Discontinued Start: 01-12-2017 End: 05-04-2024 take 1 tablet by mouth once daily buPROPion XL (WELLBUTRIN XL) 150 mg 24 hr tablet Indications: Situational stress , Major depressive disorder, recurrent episode, moderate (HCC) Take 1 tablet by mouth once daily. 30 tablet 04/16/2023 05/04/2024 Discontinued Comment on above: Take 1 tablet by staci once daily. ciprofloxacin 500 mg oral tablet (4 sources) Quinolone Antimicrobial Start: 01-13-20 End: 01-30-20 take 1 tablet by mouth twice daily Ciprofloxacin Hcl 500 MG tablet Discontinued 500 mg PO TWICE A DAY 0 0 January 12, 2017 12:00am January 29, 2017 9:39pm clindamycin 150 mg oral capsule (4 sources) Lincosamide Antibacterial Start: 12-30-19 End: 01-13-20 take 2 capsules by mouth four times daily Clindamycin Hcl 150 MG capsule Discontinued 300 mg PO 4 TIMES DAILY 80 0 December 29, 2016 12:00am January 12, 2017 11:55am Start: 12-29-2016 End: 01-12-2017 take 300 mg by mouth four times daily Clindamycin Hcl Discontinued 300 MG PO 4 TIMES DAILY 80 December 29, 2016 12:00am January 12, 2017 11:55am COMPOUNDED PRESCRIPTION (20 sources) Start: 12-04-2017 End: 05-04-2024 COMPOUNDED PRESCRIPTION Sally cations: Lymphedema of right lower extremity HCPC E0651/Segmental Compressor HCPC E067/ Leg Appliance Dx: Lymphedema I89.0 Right Lower Extremity Lifetime Usage 1 Each 12/04/2017 05/04/2024 Discontinued Start: 12-04-2017 COMPOUNDED PRE SCRIPTION Indications: Lymphedema of right lower extremity HCPC E0651/Segmental Compressor HCPC E067/ Leg Appliance Dx: Lymphedema I89.0 Right Lower Extremity Lifetime Usage 1 Each 12/04/2017 Active Start: 12-04-2017 COMPOUNDED PRE SCRIPTION Indications: Lymphedema of right lower extremity HCPC E0651/Segmental Compressor HCPC E067/ Leg Appliance Dx: Lymphedema I89.0 Right Lower Extremity Lifetime Usage 1 Each 0 12/04/2017 Active Comment on above: [facility] E0651/Segmental Compressor [facility] E067/ Leg Appliance Dx: Lymphedema I89.0 Right Lower Extremity Lifetime Usage docusate sodium 100 mg oral capsule (8 sources) Star t: 04-24 15 End: 08-09 16 take 1 capsule by mouth twice daily as needed for constipation Docusate Sodium (Colace) 100 MG capsule Discontinued 100 mg PO TWICE DAILY NEEDED as needed for Constipation 10 May 01, 2015 1:00am June 26, 2015 4:30pm 0.4 ml enoxaparin sodium 100 mg/ml prefilled syringe (4 sources) Low Molecular Weight Heparin Star t: 12-22 17 End: 12-10 17 Enoxaparin 40 MG/0.4 ML syringe Discontinued 40 mg SC DAILY January 12, 2017 12:00am January 29, 2017 9:38pm ergocalciferol 1.25 mg oral capsule (4 sources) Provitamin D2 Compound Star t: 04-24 15 End: 08-09 16 Ergocalciferol (Vitamin D2) (Vitamin D) 50,000 UNIT capsule Discontinued 80724 U PO Q7D May 19, 2014 1:00am June 26, 2015 4:30pm gabapentin 300 mg oral capsule (4 sources) Anti-epileptic Agent Star t: 07-22 14 End: 08-21 14 take 1 capsule by mouth three times daily at mealtime Gabapentin 300 MG capsule Discontinued 300 mg PO 3 TIMES DAILY WITH MEALS August 16, 2013 12:00am September 07, 2013 10:05am medroxyPROGESTERone acetate 5 mg oral tablet (3 sources) Progestin Star t: 12-21 End: 01-22 take 1 tablet by mouth once daily medroxyPROGESTERone (PROVERA) 5 mg tablet Take 1 tablet by mouth once daily. 30 tablet 5 12/30/2022 02/16/2023 Discontinued Comment on above: Take 1 tablet by staci once daily. megestrol acetate 20 mg oral tablet (14 sources) Progestin Star t: 01-22 23 End: 04-23 take 1 tablet by mouth once daily megestrol (MEGACE) 20 mg tablet Indications: Endometrial hyperplasia Take 1 tablet (20 mg) by mouth once daily. 30 tablet 4 07/15/2023 05/04/2024 Discontinued Start: 08-26-2019 End: 06-21-2021 take 1 tablet by mouth once daily megestrol (MEGACE) 20 mg tablet Take 1 tablet (20 mg) by mouth once daily. 30 tablet 5 08/26/2019 06/21/2021 Discontinued Comment on above: Take 1 tablet (20 mg ) by mouth once daily. meloxicam 15 mg oral tablet (4 sources) Nonsteroidal Anti-inflammatory Drug Start: 08-16-2013 End: 08-31-2013 Meloxicam 15 MG tablet Discontinued 1 {tbl} PO DAILY August 16, 2013 12:00am August 31, 2013 12:20pm menthol 0.0044 mg/mg / zinc oxide 0.2 mg/mg topical ointment (4 sources) Start: 01-29-2017 End: 03-27-2017 Menthol-Zinc Oxide (Calmoseptine) 1 APPLIC Tube Discontinued 1 NMA TOPICAL THREE TIMES A DAY 0 January 29, 2017 1:00am March 27, 2017 11:57am Please contact the information source for Protocol details. Start: 01-29-2017 End: 03-27-2017 Menthol-Zinc Oxide (Calmosep kya) 1 APPLIC Tube Discontinued 1 APPLIC TOPICAL THREE TIMES A DAY January 29, 2017 1:00am March 27, 2017 11:57am norethindrone acetate 5 mg oral tablet (2 sources) Start: 01-19-2023 End: 02-16-2023 norethindrone (AYGESTIN) 5 mg tablet Take TID until bleeding stop then BID x 3 days then daily. 30 tablet 0 01/19/2023 02/16/2023 Discontinued Comment on above: Take TID until bleed ing stop then BID x 3 days then daily. Edson-3 Fatty Acids-Fish Oil (3 sources) Start: 05-19-2014 End: 06-26-2015 Edson-3 Fatty Acids-Fish Oil Discontinued 1 EACH PO DAILY May 20, 2014 12:14am June 26, 2015 4:29pm Start: 05-19-2014 End: 06-26-2015 Edson-3 Fatty Acids-Fish Oil Discontinued 1 EACH PO DAILY May 19, 2014 1:00am June 26, 2015 4:29pm Start: 05-19-2014 End: 06-26-2015 Edson-3 Fatty Acids-Fish Oil Discontinued 1 EACH PO DAILY May 19, 2014 12:00am June 26, 2015 3:29pm Edson-3 Fatty Acids-Fish Oil 1 EACH capsule (1 source) Start: 05-19-2014 End: 06-26-2015 Edson-3 Fatty Acids-Fish Oil 1 EACH capsule Discontinued 1 NMA PO DAILY May 19, 2014 1:00am June 26, 2015 4:29pm oxyCODONE hydrochloride 5 mg oral tablet (8 sources) Opioid Agonist Start: 01-12-2017 End: 04-12-2017 take 1 tablet by mouth every four hours as needed for pain Oxycodone 5 MG tablet Discontinued 5 mg PO EVERY 4 HOURS NEEDED as needed for Moderate Pain (pain scale 4-5) 30 0 January 29, 2017 9:39pm April 12, 2017 12:22pm polysaccharide iron complex 150 mg oral capsule (4 sources) Start: 01-29-2017 End: 03-27-2017 Polysaccharide Iron Complex (Ferrex 150) 150 MG capsule Discontinued 150 mg PO DAILY WITH MEALS 0 January 29, 2017 1:00am March 27, 2017 11:57am promethazine hydrochloride 25 mg oral tablet (4 sources) Phenothiazine Start: 05-01-2015 End: 06-26-2015 take 1 tablet by mouth every four hours as needed for nausea Promethazine 25 MG tablet Discontinued 25 mg PO EVERY 4 HOURS NEEDED as needed for Nausea 10 0 May 01, 2015 1:00am June 26, 2015 4:29pm Problems Active Problems Problem Classification Problem Date Documented Date Episodic/Chronic Adjustment disorders (20 sources) Adjustment disorder with depressed mood; Translations: [Adjustment disorder with depressed mood] Onset: 04-24-2008 Resolved: 04-20-2019 04-20-2019 Chronic Chronic ulcer of skin (4 sources) Chronic ulcer of skin of ankle; Translations: [Non-pressure chronic ulcer of right ankle limited to breakdown of skin] 08-31-2018 Chronic Complications of surgical procedures or medical care (4 sources) Wound dehiscence; Translations: [Disruption of external operation (surgical) wound, not elsewhere classified, initial encounter] 08-31-2018 Episodic Deficiency and other anemia (20 sources) Iron 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; Translations: [Iron deficiency anemia secondary to blood loss (chronic)] Onset: 04-28-2017 04-28-2017 Chronic Deficiency and other anemia (1 source) Iron deficiency anemia secondary to blood loss (chronic); Translations: [Iron deficiency anemia due to chronic blood loss] Onset: 04-28-2017 Chronic Disorders of lipid metabolism (2 sources) Hyperlipidemia; Translations: [Hyperlipidemia, unspecified] Onset: 05-04-2024 05-02-2024 Chronic Esophageal disorders (20 sources) Gastroesophageal reflux disease; Translations: [Gastro-esophageal reflux disease without esophagitis] Onset: 08-09-2008 08-09-2008 Chronic Intestinal obstruction without hernia (8 sources) Obstruction of small intestine co-occurrent and due to peritoneal adhesions; Translations: [Intestinal adhesions [bands], unspecified as to partial versus complete obstruction] 08-31-2018 Episodic Mood disorders (20 sources) Recurrent major depressive episodes, moderate ; Translations: [Major depressive disorder, recurrent, moderate] Onset: 07-10-2015 Resolved: 04-20-2019 Chronic Nutritional deficiencies (3 sources) Vitamin D deficiency; Translations: [Vitamin D deficiency, unspecified] Onset: 05-04-2024 Chronic Open wounds of extremities (2 sources) Injury of right leg; Translations: [Unspecified open wound, right lower leg, initial encounter] Onset: 11-17-2024 11-09-2024 Episodic Osteoarthritis (20 sources) Bilateral arthritis of knees; Translations: [Bilateral primary osteoarthritis of knee] Onset: 01-08-2011 Resolved: 02-06-2015 Chronic Other connective tissue disease (20 sources) History of total knee arthroplasty; Translations: [Presence of right artificial knee joint] Onset: 05-01-2014 Resolved: 10-03-2014 10-03-2014 Chronic Other connective tissue disease (4 sources) History of repair of hip joint; Translations: [Presence of artificial hip joint, bilateral] 03-19-2022 Chronic Other connective tissue disease (4 sources) Swelling of lower limb; Translations: [Other specified soft tissue disorders] 08-31-2018 Episodic Other diseases of veins and lymphatics (20 sources) Lymphedema of right lower limb; Translations: [Lymphedema, not elsewhere classified] Onset: 05-01-2014 11-04-2017 Chronic Other diseases of veins and lymphatics (20 sources) Stasis dermatitis of right lower extremity due to peripheral venous hypertension; Translations: [Chronic venous hypertension (idiopathic) with inflammation of right lower extremity] Onset: 04-28-2017 04-28-2017 Chronic Other diseases of veins and lymphatics (20 sources) Peripheral venous insufficiency; Translations: [Venous insufficiency (chronic) (peripheral)] Onset: 04-28-2017 04-28-2017 Episodic Other female genital disorders (20 sources) Endometrial hyperplasia; Translations: [Endometrial hyperplasia, unspecified] Onset: 11-18-2022 Chronic Other female genital disorders (2 sources) Polyp of corpus uteri; Translations: [Polyp of corpus uteri] Episodic Other nutritional; endocrine; and metabolic disorders (20 sources) Body mass index 40+ - severely obese; Translations: [Morbid (severe) obesity due to excess calories] Onset: 08-03-2017 08-03-2017 Chronic Other nutritional; endocrine; and metabolic disorders (4 sources) Morbid obesity; Translations: [Morbid (severe) obesity due to excess calories] 08-31-2018 Chronic Other nutritional; endocrine; and metabolic disorders (1 source) Severe obesity; Translations: [Morbid (severe) obesity due to excess calories] Chronic Other skin disorders (4 sources) History of cellulitis; Translations: [Personal history of diseases of the skin and subcutaneous tissue] 08-31-2018 Episodic Residual codes; unclassified (20 sources) Obstructive sleep apnea syndrome; Translations: [Obstructive sleep apnea (adult) (pediatric)] Onset: 06-09-2011 03-18-2021 Chronic Residual codes; unclassified (1 source) Obstructive sleep apnea (adult) (pediatric); Translations: [OH on CPAP] Onset: 03-18-2021 Chronic Residual codes; unclassified (20 sources) Insomnia; Translations: [Insomnia, unspecified] Onset: 10-11-2013 Episodic Residual codes; unclassified (4 sources) Edema of lower extremity; Translations: [Localized edema] 08-31-2018 Episodic Skin and subcutaneous tissue infections (7 sources) Cellulitis; Translations: [Cellulitis, unspecified] Onset: 05-04-2024 09-13-2017 Episodic Spondylosis; intervertebral disc disorders; other back problems (20 sources) Degeneration of lumbar intervertebral disc; Translations: [Other intervertebral disc degeneration, lumbar region] Onset: 01-06-2012 01-06-2012 Chronic Spondylosis; intervertebral disc disorders; other back problems (4 sources) Low back pain; Translations: [Low back pain] 03-19-2022 Episodic Unclassified (4 sources) PERIPROSTETIC KNEE INFECTION 03-19-2022 Comment on above: PSEUDOMONAS Unclassified (1 source) Degeneration of intervertebral disc of lumbar region with discogenic back pain; Translations: [Degeneration of intervertebral disc of lumbar region with discogenic back pain] Onset: 01-06-2012 Past or Other Problems Problem Classification Problem Date Documented Da te Episodic/Chronic Abdominal hernia (20 sources) Hernia of anterior abdominal wall; Translations: [Ventral hernia without obstruction or gangrene] Onset: 8 Resolved: 5 06-15-2008 Episodic Infective arthritis and osteomyelitis (except that caused by tuberculosis or sexually transmitted disease) (20 sources) Infective arthritis; Translations: [Pyogenic arthritis, unspecified] Onset: 0 08-18-2019 Episodic Malaise and fatigue (2 sources) Fatigue; Translations: [Other fatigue] Onset: 5 05-04-2024 Episodic Menopausal disorders (20 sources) Postmenopausal bleeding; Translations: [Postmenopausal bleeding] Onset: 3 Resolved: 0 Chronic Miscellaneous mental health disorders (12 sources) Pain disorder with psychological factor; Translations: [Pain disorder with related psychological factors] Onset: 6 Resolved: 7 11-12-2016 Chronic Other aftercare (20 sources) Patient encounter status; Translations: [Encounter for therapeutic drug level monitoring] Onset: 4 11-14-2013 Episodic Other connective tissue disease (12 sources) Lateral epicondylitis; Translations: [Lateral epicondylitis, unspecified elbow] Onset: 9 Resolved: 5 09-28-2014 Episodic Other gastrointestinal disorders (12 sources) Diarrhea; Translations: [Diarrhea, unspecified] Resolved: 6 11-21-2015 Episodic Other liver diseases (20 sources) Alkaline phosphatase raised; Translations: [Abnormal levels of other serum enzymes] Onset: 0 05-20-2019 Episodic Other nervous system disorders (12 sources) Carpal tunnel syndrome; Translations: [Carpal tunnel syndrome, unspecified upper limb] Onset: 8 Resolved: 0 04-20-2019 Chronic Other screening for suspected conditions (not mental disorders or infectious disease) (2 sources) Encounter for screening mammogram for malignant neoplasm of breast; Translations: [Encounter for screening for malignant neoplasm of colon] Onset: 5 Episodic Residual codes; unclassified (1 source) Insomnia, unspecified; Translations: [Insomnia, unspecified type] Onset: 4 Episodic Screening and history of mental health and substance abuse codes (1 source) Encounter for screening examination for other mental health and behavioral disorders; Translations: [Encounter for screening examination for other mental health and behavioral disorders] Onset: 5 Episodic Sexually transmitted infections (not HIV or hepatitis) (20 sources) Human papillomavirus deoxyribonucleic acid test positive, high risk on cervical specimen; Translations: [Cervical high risk human papillomavirus (HPV) DNA test positive] Onset: 2 09-22-2011 Episodic Unclassified (2 sources) Patient encounter status 05-04-2024 Results Test Name Value Interpretation Reference Range Facility Wound Ctr History AND Physic connie 11-14-2024 Wound Ctr History & Physical [facility] [address] [place] [address] H P Exam - Wound Care 11/14/24 1056 MR#: [id number] Acct: [id number] Name: MEGHA CIFUENTES Rep #: [id number] : 1960 63 From: Miguel Angel Vargas MD PCP: Dr. Ty Narayanan MD Status:REG R Location: History of Present Illness Date of Service: 11/14/24 Chief Complaint: Bilateral lower extremity swelling and edema, right greater than left History of Wound: Megha Cifuentes is a 63-year-old female presenting with bilateral lower extremity swelling and a presumed right posterior leg venous stasis ulcer. The patient has a history of bilateral knee and hip replacements, with the right leg being consistently larger due to multiple surgeries, including a hip, three knee, and an ankle surgery. She experienced a significant increase in swelling in both legs a couple of weeks ago, accompanied by a weight gain of 10 pounds within a week. The patient has been experiencing shortness of breath over the past couple of weeks, which has been a new development. The patient has not been taking any diuretics and has not experienced fever or chills. She has been advised to consider a water pill to manage the fluid retention. Patient presented to the emergency department at [facility] on 09 November 2024 for the presumed right lower extremity venous stasis ulcer in the setting of seeing maggots coming in and out of the wound bed. The wound was irrigated and washed out in the emergency department and cleaned. She is not been doing anything for dressing since. They did not admit her. She had a normal white blood cell count and stable vital signs. Today at the wound care center she has stable vital signs and reports that there have not been any maggots coming in and out of the wound since her visit to the emergency department. She does not currently have a consistent primary care provider. ROS: - Cardiovascular: Reports bilateral lower extremity swelling. Denies chest pain. - Respiratory: Reports shortness of breath over the past couple of weeks. Denies cough or wheezing. - General: Denies fever or chills. Attestation: Documentation on this patient encounter was supported using ambient scribe technology/ voice AI technology. The patient consented to recording for the purpose of documenting the encounter. Provider reviewed content of the generated note prior to signature. [facility] Medical History Wears dentures Alcohol use Arthritis Restless legs Injury of head and neck Non-smoker CPAP (continuous positive airway pressure) dependence Sleep apnea History of edema History of pain when walking History of echocardiogram PERIPROSTETIC KNEE INFECTION Home Medications ???Medication ???Instructions ???Recorded ???Last Taken ???Type fluoxetine 20 mg capsule 20 mg PO DAILY mental health 11/2205/25/17 History bupropion HCl 150 mg 24 hr tablet, 150 mg PO DAILY DEPRESSION 01/1205/25/17 History extended release temazepam 15 mg capsule 15 mg PO QHS PRN PRN Sleep 8 05/25/17 History levofloxacin 500 mg tablet 500 mg PO Q24H 11/07/22 Unknown Hi story naproxen 500 mg tablet mg 11/14/22 11/14/22 06:00 History cephalexin 500 mg capsule 500 mg PO Q6 5 days #24 CAPSULES 0 11/09/24 Unknown Rx Allergy/AdvReac Type Severity Reaction Status Date / Time No Known Allergies Allergy Verified 11/14/24 09:58 Family History Father Myocardial infarction Mother Myocardial infarction Surgical History History of hernia surgery History of History of arthroplasty of right ankle Status post bilateral hip replacements Status post bilateral knee replacements Social History Smoking Status: Never smoker alcohol intake: never Vital Signs Vital Signs Vital Signs: 11/14/24 10:01 Temperature 96.1 F L Temperature Source Temporal Pulse Rate 84 Respiratory Rate 18 Blood Pressure 146/94 H Blood Pressure Mean 111 Blood Pressure Source Monitor Blood Pressure Position Sitting Blood Pressure Location Right Forearm Oxygen Delivery Method Room Air Weight Weight: 370 lb Body Mass Index (BMI) 53.1 Physical Exam Narrative - Cardiovascular: Blood pressure 146/94 mmHg, pulse 84 bpm - Integumentary: 4+ pitting edema on lower extremities, 2+ dorsalis pedis pulses bilaterally, chronic lymphedema changes on distal right leg, 10 x 10 cm venous stasis ulcer on right leg. No discrete fluid collections/abscess and no real induration/cellulitis - General: No fever, temperature 96.1???F Resp (more content not included)... Normal [facility] Absolute lymphocyte countOrd ered By: Philomena Zhu on 11-09-2024 Lymphocytes Auto (Unsp spec) [#/Vol] 0.44 10*3/uL Low 0.83-4.51 [facility] Absolute neutrophil countOrd ered By: Philomena Zhu on 11-09-2024 Neutrophils (Bld) [#/Vol] 3.2 10*3/uL 2.0-7.7 [facility] Anion gap in Serum or Plasma Ordered By: Philomena Zhu on 11-09-2024 Anion gap [Moles/Vol] 10 mmol/L 5-15 [facility] Automated lymphocyte count a s percentage of total leukocytesOrdered By: Philomena Zhu on 11-09-2024 Lymphocytes/100 WBC Auto (Unsp spec) 10.9 % Low 19-41 [facility] BUN/creatinine ratioOrdered By: Philomena Zhu on 11-09-2024 Urea nitrogen/Creatinine [Mass ratio] 11.6 mg/mg - [facility] Basic Metabolic Profile (BMP )on 11-09-2024 BUN/CRE 11.6 RATIO Normal - [facility] Comment on above: Performed By: #### L 100.0100, L500.2500 #### [facility] [address] [place], [address] Calcium [Mass/Vol] 8.6 mg/dL Normal 7.6-11.0 [facility] Comment on above: Performed By: #### L 100.0100, L500.2500 #### [facility] [address] [place], [address] Chloride [Moles/Vol] 102 mmol/L Normal 98-108 [facility] Comment on above: Performed By: #### L 100.0100, L500.2500 #### [facility] [address] [place], [address] CO2 [Moles/Vol] 24.6 mmol/L Normal 21.0-32.0 [facility] Comment on above: Performed By: #### L 100.0100, L500.2500 #### [facility] [address] [place], [address] Creatinine [Mass/Vol] 0.67 mg/dL Low 0.70-1.20 [facility] Comment on above: Performed By: #### L 100.0100, L500.2500 #### [facility] [address] [place], [address] ECRCL 152.54 ml/min Normal 50-250 [facility] Comment on above: Performed By: #### L 100.0100, L500.2500 #### [facility] [address] [place], [address] GAP 10 Normal 5-15 [facility] Comment on above: Performed By: #### L 100.0100, L500.2500 #### [facility] [address] [place], [address] GFR/1.73 sq M.predicted among non-blacks MDRD (S/P/Bld) [Vol rate/Area] 99 mL/min/{1.73_m2} Normal >60 [facility] Comment on above: Result Comment: mL/m in/1.73m2 CKD-EPI Creatinine Equation (2020) Performed By: #### L 100.0100, L500.2500 #### [facility] [address] [place], [address] Glucose [Mass/Vol] 99 mg/dL Normal 70-99 [facility] Comment on above: Performed By: #### L 100.0100, L500.2500 #### [facility] [address] [place], [address] Potassium [Moles/Vol] 4.4 mmol/L Normal 3.3-5.1 [facility] Comment on above: Performed By: #### L 100.0100, L500.2500 #### [facility] [address] [place], [address] Sodium [Moles/Vol] 137 mmol/L Normal 133-145 [facility] Comment on above: Performed By: #### L 100.0100, L500.2500 #### [facility] [address] [place], [address] Urea nitrogen [Mass/Vol] 8 mg/dL Normal 4-19 [facility] Comment on above: Performed By: #### L 100.0100, L500.2500 #### [facility] [address] [place], [address] Basophil percentageOrdered B y: Philomena Zhu on 11-09-2024 Basophils/100 WBC (Bld) 0.2 % 0-1 [facility] CBC W/Diff, Automatedon 08-2 0-2025 Absolute Lymph 0.44 X10 3/uL Low 0.83-4.51 [facility] Comment on above: Performed By: #### L 100.0100, L500.2500 #### [facility] [address] [place], [address] Absolute Neut 3.2 X10 3/uL Normal 2.0-7.7 [facility] Comment on above: Performed By: #### L 100.0100, L500.2500 #### [facility] [address] [place], [address] Basophils/100 WBC (Bld) 0.2 % Normal 0-1 [facility] Comment on above: Performed By: #### L 100.0100, L500.2500 #### [facility] [address] [place], [address] Eosinophils/100 WBC (Bld) 1.7 % Normal 0-5 [facility] Comment on above: Performed By: #### L 100.0100, L500.2500 #### [facility] [address] [place], [address] Erythrocyte distribution width (RBC) [Ratio] 14.0 % Normal 11.6-14.6 [facility] Comment on above: Performed By: #### L 100.0100, L500.2500 #### [facility] [address] [place], [address] Hematocrit (Bld) [Volume fraction] 39.9 % Normal 37-47 [facility] Comment on above: Performed By: #### L 100.0100, L500.2500 #### [facility] [address] [place], [address] Hemoglobin (Bld) [Mass/Vol] 13.0 g/dL Normal 12.0-15.0 [facility] Comment on above: Performed By: #### L 100.0100, L500.2500 #### [facility] [address] [place], [address] IG% 0.500 Normal 0.0-0.9 [facility] Comment on above: Result Comment: IG% - Immature Granulocytes (promyelocytes, myelocytes and metamyelocytes) > 1% indicates that a LEFT SHIFT is Present. Performed By: #### L 100.0100, L500.2500 #### [facility] [address] [place], [address] Lymphocytes/100 WBC (Bld) 10.9 % Low 19-41 [facility] Comment on above: Performed By: #### L 100.0100, L500.2500 #### [facility] [address] [place], [address] MCH (RBC) [Entitic mass] 31.7 pg Normal 27.0-32.0 [facility] Comment on above: Performed By: #### L 100.0100, L500.2500 #### [facility] [address] [place], [address] MCHC (RBC) [Mass/Vol] 32.6 g/dL Normal 32-36 [facility] Comment on above: Performed By: #### L 100.0100, L500.2500 #### [facility] [address] [place], [address] MCV (RBC) [Entitic vol] 97.3 fL Normal 81-99 [facility] Comment on above: Performed By: #### L 100.0100, L500.2500 #### [facility] [address] [place], [address] Monocytes/100 WBC (Bld) 8.4 % Normal 0-10 [facility] Comment on above: Performed By: #### L 100.0100, L500.2500 #### [facility] [address] [place], [address] Neutrophils/100 WBC (Bld) 78.3 % High 47-70 [facility] Comment on above: Performed By: #### L 100.0100, L500.2500 #### [facility] [address] [place], [address] Nucleated RBC (Bld) [#/Vol] 0 10*3/uL Normal 0-5 [facility] Comment on above: Performed By: #### L 100.0100, L500.2500 #### [facility] [address] [place], [address] Platelet mean volume (Bld) [Entitic vol] 10.3 fL Normal 6.2-12.0 [facility] Comment on above: Performed By: #### L 100.0100, L500.2500 #### [facility] [address] [place], [address] Platelets (Bld) [#/Vol] 183 10*3/uL Normal 150-450 [facility] Comment on above: Performed By: #### L 100.0100, L500.2500 #### [facility] [address] [place], [address] RBC (Bld) [#/Vol] 4.10 10*6/uL Low 4.2-5.4 [facility] Comment on above: Performed By: #### L 100.0100, L500.2500 #### [facility] [address] [place], [address] RDW SD 50.2 fl High 35.1-43.9 [facility] Comment on above: Performed By: #### L 100.0100, L500.2500 #### [facility] [address] [place], [address] WBC (Bld) [#/Vol] 4.0 10*3/uL Low 4.4-11.0 [facility] Comment on above: Performed By: #### L 100.0100, L500.2500 #### [facility] [address] [place], [address] Carbon dioxide, total [Moles /volume] in Central venous bloodOrdered By: Philomena Zhu on 11-09-2024 CO2 [Moles/Vol] 24.6 mmol/L 21.0-32.0 [facility] Chloride assayOrdered By: Bryce Zhu on 11-09-2024 Chloride [Moles/Vol] 102 mmol/L 98-108 [facility] Emergency Department Summary on 11-09-2024 Emergency Department Summary [facility] [address] [place] [address] Emergency Department Summary 11/09/24 MR#: [id number] Acct: [id number] Name: MEGHA CIFUENTES Rep #: [id number] : 1960 63 From: Philomena Zhu MD PCP: Dr. Ty Narayanan MD Status:REG ER Location: ED HPI History of Present Illness Chief Complaint: Cellulitis Narrative Narrative: Patient is a 63-year-old female presenting to the emergency department for a wound on her right lower leg. Patient has a past medical history of leg edema, venous insufficiency and morbid obesity. Patient states that she got home from work who was sitting on the porch when she felt something crawling up her leg. She looked down and saw maggot. She states it was coming from her lower leg. She then saw a wound that she never noticed before. Denies fever, chills, nausea, vomiting. Denies chest pain or SOB. States that she has been working and ambulating fine. States she feels well. [facility] Medical History Wears dentures Alcohol use Arthritis Restless legs Injury of head and neck Non-smoker CPAP (continuous positive airway pressure) dependence Sleep apnea History of edema History of pain when walking History of echocardiogram PERIPROSTETIC KNEE INFECTION Home Medications ???Medication ???Instructions ???Recorded ???Last Taken ???Type fluoxetine 20 mg capsule 20 mg PO DAILY mental health 11/2205/25/17 History bupropion HCl 150 mg 24 hr tablet, 150 mg PO DAILY DEPRESSION 01/1205/25/17 History extended release temazepam 15 mg capsule 15 mg PO QHS PRN PRN Sleep 8 05/25/17 History levofloxacin 500 mg tablet 500 mg PO Q24H 11/07/22 Unknown Hi story naproxen 500 mg tablet mg 11/14/22 11/14/22 06:00 History cephalexin 500 mg capsule 500 mg PO Q6 5 days #24 CAPSULES 0 11/09/24 Unknown Rx Allergy/AdvReac Type Severity Reaction Status Date / Time No Known Allergies Allergy Verified 11/14/22 07:06 Family History Father Myocardial infarction Mother Myocardial infarction Surgical History History of hernia surgery History of History of arthroplasty of right ankle Status post bilateral hip replacements Status post bilateral knee replacements Social History Smoking Status: Never smoker alcohol intake: never ROS ROS ED ROS Narrative see HPI EXAM Physical Exam Narrative Exam Narrative: Vital signs: Reviewed General: Alert and orientedx3. No acute distress. Obese. HEENT: Head is normocephalic and atraumatic, sinuses nontender, pupils equal round and reactive. Nares are patent. Oropharynx and throat exams normal. Neck: Supple without lymphadenopathy nontender Cardiovascular: Regular rate and rhythm, no murmurs. No rubs or gallops. Normal S1 and S2 Respiratory: Clear to auscultation bilaterally. No wheezes, rales, rhonchi Abdominal: Soft and nontender. Normal bowel sounds. No guarding or rebound. Nonsurgical abdomen Extremities: Leg edema bilaterally that is symmetric. Nontender. There is a skin fold to the right medial lower leg with overlying skin disruption. Very mild erythema surrounding this. No fluctuance or warmth. No tenderness. No bruising. Normal range of motion. Normal sensation. Skin: No rash or redness. Neurological: Cranial nerves II through XII are grossly intact. Normal strength and sensation. Normal cerebellar function The rest of the physical exam is unremarkable Const Vital Signs: 11/09/24 12:33 Temperature 98.3 F Temperature Source Oral Pulse Rate 92 Respiratory Rate 17 Blood Pressure 167/97 H Blood Pressure Mean 120 Pulse Ox 97 Oxygen Delivery Method Room Air MDM MDM MDM Narrative Medical decision making narrative: Patient is a 63-year-old female presenting to the emergency department for a wound check. Patient was seen and examined. Vitals are stable. Patient resting bed comfortably no acute distress. Before I evaluated the patient and the nursing staff did clean the wound extensively. Reportedly there were maggots in the wound. The skin fold has no overt signs of infection. The swelling of her legs is bilateral and is chronic in nature. There is no tenderness to palpation of the legs. No signs of DVT. Likely chronic lymphedema. She has no shortness of breath or chest pain. She is able to ambulate at home she states. W CBC with no leukocytosis and a normal hemoglobin. BMP with no significant abnormalities. Patient was given a dose of Keflex here. She was given a prescription for Keflex for home. She was given wound care referral follow-up as well. Patient d (more content not included)... Normal [facility] Eosinophil percentageOrdered By: Philomena Zhu on 11-09-2024 Eosinophils/100 WBC (Bld) 1.7 % 0-5 [facility] Erythrocyte distribution wid th ratioOrdered By: Philomena Zhu on 11-09-2024 Erythrocyte distribution width (RBC) [Ratio] 14.0 % 11.6-14.6 [facility] Erythrocyte distribution wid th standard deviationOrdered By: Philomena Zhu on 11-09-2024 Erythrocyte distribution width (RBC) [Ratio] 50.2 fl High 35.1-43.9 [facility] Glomerular filtration rate ( GFR) estimation/1.73 sq m using serum, plasma, or whole bOrdered By: Philomena Zhu on 11-09-2024 GFR/1.73 sq M.predicted among non-blacks MDRD (S/P/Bld) [Vol rate/Area] 99 mL/min/{1.73_m2} >60 [facility] Comment on above: mL/min/1.73m2 CKD-EP I Creatinine Equation (2020) Hematocrit Auto (Bld) [Volum e fraction]Ordered By: Philomena Zhu on 11-09-2024 Hematocrit (Bld) [Volume fraction] 39.9 % 37-47 [facility] Hemoglobin measurementOrdere d By: Philomena Zhu on 11-09-2024 Hemoglobin (Bld) [Mass/Vol] 13.0 g/dL 12.0-15.0 [facility] Immature granulocytes/100 WB C Auto (Bld)Ordered By: Philomena Zhu on 11-09-2024 Immature granulocytes/100 WBC (Bld) 0.500 % 0.0-0.9 [facility] Comment on above: IG% - Immature Granu locytes (promyelocytes, myelocytes and metamyelocytes) > 1% indicates that a LEFT SHIFT is Present. MCV (mean corpuscular volume ) determinationOrdered By: Philomena Zhu on 11-09-2024 MCV (RBC) [Entitic vol] 97.3 fL 81-99 [facility] Mean corpuscular hemoglobin (MCH) determinationOrdered By: Philomena Zhu on 11-09-2024 MCH (RBC) [Entitic mass] 31.7 pg 27.0-32.0 [facility] Mean corpuscular hemoglobin concentration (MCHC) determinationOrdered By: Philomena Zhu on 11-09-2024 MCHC (RBC) [Mass/Vol] 32.6 g/dL 32-36 [facility] Mean platelet volume determi nationOrdered By: Philomena Zhu on 11-09-2024 Platelet mean volume (Bld) [Entitic vol] 10.3 fL 6.2-12.0 [facility] Monocyte percentageOrdered B y: Philomena Zhu on 11-09-2024 Monocytes/100 WBC (Bld) 8.4 % 0-10 [facility] Neutrophil percentageOrdered By: Philomena Zhu on 11-09-2024 Neutrophils/100 WBC (Bld) 78.3 % High 47-70 [facility] Nucleated red blood cell per centageOrdered By: Philomena Zhu on 11-09-2024 Nucleated RBC/100 WBC (Bld) [Ratio] 0 % 0-5 [facility] Platelet countOrdered By: Bryce hZu on 11-09-2024 Platelets (Bld) [#/Vol] 183 10*3/uL 150-450 [facility] Potassium measurement (mass/ volume)Ordered By: Philomena Zhu on 11-09-2024 Potassium (Unsp spec) [Mass/Vol] 4.4 mmol/L 3.3-5.1 [facility] RBC Auto (Bld) [#/Vol]Ordere d By: Philomena Zhu on 11-09-2024 RBC (Bld) [#/Vol] 4.10 10*6/uL Low 4.2-5.4 [facility] Serum creatinine measurement (mass/volume)Ordered By: Philomena Zhu on 11-09-2024 Creatinine [Mass/Vol] 0.67 mg/dL Low 0.70-1.20 [facility] Serum glucose measurement (m ass/volume)Ordered By: Philomena Zhu on 11-09-2024 Glucose [Mass/Vol] 99 mg/dL 70-99 [facility] Serum or plasma calcium erick urement (mass/volume)Ordered By: Philomena Zhu on 11-09-2024 Calcium [Mass/Vol] 8.6 mg/dL 7.6-11.0 [facility] Serum or plasma urea nitroge n measurement (mass/volume)Ordered By: Philomena Zhu on 11-09-2024 Urea nitrogen [Mass/Vol] 8 mg/dL 4-19 [facility] Sodium levelOrdered By: Issa Zhu on 11-09-2024 Sodium [Moles/Vol] 137 mmol/L 133-145 [facility] White blood cell (WBC) count Ordered By: Philomena Zhu on 11-09-2024 WBC (Bld) [#/Vol] 4.0 10*3/uL Low 4.4-11.0 [facility] CNPNon 11-04-2024 CNPN Telephone ([facility]) MEGHA CIFUENTES ([id number]) 1960 F Date Time Provider Department 11/04/24 TY NARAYANAN During your visit today, we recorded the following information about you: Lizzy Subramanian RN 11/04/2024 12:59 PM Signed Patient calls and states that her right leg is swollen and it is seeping clear fluid. Patient states that she had talked to [place] Orthopedics about this and was told that she needed to contact PCP. Advised patient that she needs to be seen in office for this. Patient states that she does not think provider take insurance. Advise patient that she needs to go to [facility] to have this evaluated. Patient states that she will look for an express care that takes her insurance. Patient states that she thinks she will wait it out a bit. Advised patient that she really needs to have it looked at. BRODY Dumont Jesse, APRN.CNP 11/04/2024 1:25 PM Signed Potentially could be a blood clot. Needs evaluated. Can go to the ER if insurance is an issue. Raghu Nuñez APRN.Lizzy Dupree RN 11/04/2024 1:32 PM Signed Patient notified of provider's instructions. Patient verbalizes understanding. Lizzy Subramanian RN Allergies As of Date: 11/04/2024 (No Known Allergies) Date Reviewed: 05/04/2024 Reviewed by: Sherry Shah LPN - Fully Assessed Reason for Visit: Patient Update [1234] Prescriptions as of 11/04/2024 - temazepam (RESTORIL) 15 mg Take 1 capsule by mouth at bedtime as needed for up to 90 days. - cholecalciferol, Vitamin D3, (VITAMIN D3) 1,250 mcg (50,000 unit) cap capsule Take 1 capsule by mouth one time a week. - ibuprofen (MOTRIN) 800 mg tablet Take 1 tablet by mouth every 8 hours as needed for pain. Take with food. Do not take the same day as you take naproxen - FLUoxetine (PROZAC) 10 mg capsule Take 1 capsule by mouth once daily. - hydrocortisone (ANUSOL-HC) 2.5 % rectal cream by RECTAL route two times a day. - levoFLOXacin (LEVAQUIN) 500 mg tablet Take 500 mg by mouth once daily. Problem List As Of Date 11/04/2024 Noted Resolved VENTRAL HERNIA NOS [K43.9] 08/27/2007 06/15/2008 Carpal tunnel syndrome [G56.00] 03/10/2008 04/20/2019 Adjustment disorder with depressed mood [F43.21]04/24/2008 04/20/2019 ESOPHAGEAL REFLUX [K21.9] 08/09/2008 LATERAL EPICONDYLITIS [M77.10] 09/19/2008 09/28/2014 Ventral hernia, recurrent [K43.2] 12/25/2008 09/28/2014 Diarrhea [R19.7] 11/21/2015 Hip arthritis [M16.10] 01/08/2011 02/06/2015 OH on CPAP [G47.33] 06/09/2011 Cervical high risk human papillomavirus (HPV) D*09/22/2011 Lumbar degenerative disc disease [M51.369] 01/06/2012 Premenopausal menorrhagia [N92.4] 12/30/2012 12/19/2014 Arthritis of both knees [M17.0] 09/20/2013 Insomnia [G47.00] 10/11/2013 Medication monitoring encounter [Z51.81] 11/14/2013 Lymphedema of right lower extremity [I89.0] 05/01/2014 S/P total knee replacement [Z96.659] 05/01/2014 10/03/2014 Status post total right knee replacement [Z96.6*10/03/2014 Postmenopausal bleeding [N95.0] 02/06/2015 04/20/2019 Reactive depression [F32.9] 07/10/2015 04/20/2019 Pain disorder with psychological component [F45*12/31/2015 11/12/2016 Iron deficiency anemia due to chronic blood los*04/28/2017 Situational depression [F43.21] 04/28/2017 04/20/2019 Peripheral venous insufficiency [I87.2] 04/28/2017 Stasis dermatitis of right lower extremity due *04/28/2017 Obesity, Class III, BMI 40-49.9 (morbid obesity*08/03/2017 Major depressive disorder, recurrent episode, m*01/18/2019 Elevated alkaline phosphatase level [R74.8] 05/20/2019 Arthritis, septic (HCC) [M00.9] 08/18/2019 Endometrial hyperplasia [N85.00] 11/18/2022 Encounter Status:Closed by LIZZY SUBRAMANIAN on 11/04/[address] [facility] 10-26-2024 CNPN Telephone (FAMPWS) MEGHA CIFUENTES ([id number]) 1960 F Date Time Provider Department 10/26/24 [facility] During your visit today, we recorded the following information about you: Sherry Mclaughlin RN 10/26/2024 2:16 PM Signed Pt does not have any follow up appt scheduled. When would provider like her to return to the office? The patient has been identified by name and date of : Yes Caregiver verified no other encounters exist for this prescription request: Yes Caregiver confirmed with patient/requestor that no other refills are due, in the near future, with this provider at this time: Yes The last office visit in the department: 05/04/2024 Does the patient have a future office visit with this provider/department: No Per last OV note with Bronwyn Solo in April, pt was restarted on Prozac and was to follow up in one month. Appears pt should be due for a refill on her Prozac as well. Discussed with pt and she states she forgets to take her Prozac every day so she doesn't need any refills. Explained to pt that for the Prozac to work, she needs to take it on a daily basis and try to take it at the same time. Encouraged pt to set her bottle by her toothbrush to take in the morning when she brushes her teeth or set a reminder alarm on her phone. Pt verbalizes she needs to do something because she needs to take the Prozac. Unsure when pt would be due back for a visit. Will confirm with provider. Requested Prescriptions Pending Prescriptions Disp Refills temazepam (RESTORIL) 15 mg 90 capsule 1 Sig: Take 1 capsule by mouth at bedtime as needed for up to 180 days. Sherry Mclaughlin RN October 26, 2024 2:08 PM Ty Narayanan MD 10/27/2024 11:46 AM Signed OK for 3 months; needs appt within that time period MD Shahida Trujillo Amanda, RN 10/27/2024 12:44 PM Signed Pt called and is notified of providers message and instructions. Pt voices understanding. She states she isn't at home right now and will call back in to schedule appointment. BRODY Stephen Barbara, RN 10/28/2024 3:48 PM Signed No appt made. Contacted pt again and she states she will call back in to schedule. Amy SeemaNyla 10/31/2024 11:33 AM Signed Spoke with patient she was not happy that we returned another call to schedule a 3 month med review offered PCP 11/07/24 at 6:40 pm patient declined and stated she will call when she knows schedule. Allergies As of Date: 10/26/2024 (No Known Allergies) Date Reviewed: 05/04/2024 Reviewed by: Sherry Shah LPN - Fully Assessed Reason for Visit: Refill Request [94] Future Appointment [256] Visit Diagnosis:Insomnia, unspecified type [G47.00] Order(s):temazepam (RESTORIL) 15 mgTake 1 capsule by mouth at bedtime as needed for up to 90 days.Disp: 90 capsuleRfl: 0 Prescriptions as of 10/31/2024 - temazepam (RESTORIL) 15 mg Take 1 capsule by mouth at bedtime as needed for up to 90 days. - cholecalciferol, Vitamin D3, (VITAMIN D3) 1,250 mcg (50,000 unit) cap capsule Take 1 capsule by mouth one time a week. - ibuprofen (MOTRIN) 800 mg tablet Take 1 tablet by mouth every 8 hours as needed for pain. Take with food. Do not take the same day as you take naproxen - FLUoxetine (PROZAC) 10 mg capsule Take 1 capsule by mouth once daily. - hydrocortisone (ANUSOL-HC) 2.5 % rectal cream by RECTAL route two times a day. - levoFLOXacin (LEVAQUIN) 500 mg tablet Take 500 mg by mouth once daily. Problem List As Of Date 10/26/2024 Noted Resolved VENTRAL HERNIA NOS [K43.9] 08/27/2007 06/15/2008 Carpal tunnel syndrome [G56.00] 03/10/2008 04/20/2019 Adjustment disorder with depressed mood [F43.21]04/24/2008 04/20/2019 ESOPHAGEAL REFLUX [K21.9] 08/09/2008 LATERAL EPICONDYLITIS [M77.10] 09/19/2008 09/28/2014 Ventral hernia, recurrent [K43.2] 12/25/2008 09/28/2014 Diarrhea [R19.7] 11/21/2015 Hip arthritis [M16.10] 01/08/2011 02/06/2015 OH on CPAP [G47.33] 06/09/2011 Cervical high risk human papillomavirus (HPV) D*09/22/2011 Lumbar degenerative disc disease [M51.369] 01/06/2012 Premenopausal menorrhagia [N92.4] 12/30/2012 12/19/2014 Arthritis of both knees [M17.0] 09/20/2013 Insomnia [G47.00] 10/11/2013 Medication monitoring encounter [Z51.81] 11/14/2013 Lymphedema of right lower extremity [I89.0] 05/01/2014 S/P total knee replacement [Z96.659] 05/01/2014 10/03/2014 Status post total right knee replacement [Z96.6*10/03/2014 Postmenopausal bleeding [N95.0] 02/06/2015 04/20/2019 Reactive depression [F32.9] 07/10/2015 04/20/2019 Pain disorder with psychological component [F45*12/31/2015 11/12/2016 Iron deficiency anemia due to chronic blood los*04/28/2017 Situational depression [F43.21] 04/28/2017 04/20/2019 Peripheral venous insufficiency [I87.2] 04/28/2017 Stasis dermatitis of right lower extremity due *04/28/2017 Obesity, Clas (more content not included)... Normal [facility] CNCOon 06-01-2024 CNCO Letter Text Normal [facility] CNOVon 05-04-2024 CNOV Office Visit (FAMPWS ) MEGHA CIFUENTES ([id number]) 1960 F Date Time Provider Department 05/04/24 2:40 PM BRONWYN SOLO During your visit today, we recorded the following information about you: Pulse Respiration Blood pressure Weight 72/minute 18/minute 130/96 162.6 kg Height 1.715 m Bronwyn Solo APRN.SUPERVISOR LATHING 05/04/2024 4:54 PM Signed Megha Cifuentes is a 63 year old female here for a Medicare wellness visit. Medicare Health Risk Assessment General Health Very good Exercise: Minutes/Day 0 min Exercise: Days/Week 0 days Alcohol: Daily Use daily Alcohol: Drinks/Day 3 or 4 Alcohol: 6 or more drinks Monthly Feel off balance No Concerns: Teeth/Dentures No Concerns: Sexual function No Troubled by feelings Stressed; Lonely Frequency: Eating healthy diet Not at all ADLs requiring help None of the above Safety precautions in home/vehicle Yes Smoke, vape, chews tobacco No Difficulty hearing No Difficulty seeing No Current Providers Specialists: I have reviewed specialist-related care of the patient in the medical record. Medical/Family history review Reviewed and updated problem list, medical/surgical/fami ly/social history, medications, and allergies. Opioid use review Opioid Medications (last 90 days) No data to display Anxiety/Depression screening PHQ-2 Score: 1 (Lower risk for depression) Recommendation: no further intervention at this time Cognitive screening Mini Cog Score: 5 Cognitive screening reviewed and No further action needed (score 3-5). Functional Observation Was the patient's Timed Up AND Go test unsteady or >= 12 seconds? No Advance Care Planning Patient did not wish or was not able to name a surrogate decision maker or provide an advance care plan Measurements LMP 06/04/2018 (Approximate) SpO2 96% Vision Screening: Follows with optometry/ophthalmolo gy Assessment/Plan Medicare annual wellness visit, subsequent (Z00.00) - Counseled on healthy diet and regular exercise - Fall avoidance information provided - Personalized prevention plan provided - Discussed need for and benefit of weight loss. No weight on file for this encounter. This is a 63 year old female who presents today with: Patient presents with: Medicare Wellness Exam HISTORY OF PRESENT ILLNESS: Megha Cifuentes is a 63 year old female. Patient presents with: Medicare Wellness Exam Here in the office for extensive exam, Past due for labs. Never completed in 2023. Depression: Was taking Wellbutrin and Prozac, no longer taking, would like to go back on them. Tearful, feels like she is limited due to hip/knee replacement. Denies HI/SI. She stopped taking her medications because she is tired of taking pills. She has gained weight over the last year and doesn't like herself. Left leg lesion, refers it is red, went to [place] and think she may have gotten bit, seeping at times. No fever or chills Vitamin D: Was taking Vitamin D3 50,000 international unit(s) weekly, has been out of medication History of EDDIE, not currently taking iron. On going fatigue. OH: Using CPAP, taking Restoril 15 mg at bedtime for sleep. Vaccines: Due Dtap now will schedule at later time, denies wanting the covid vaccine today. Colonoscopy: Fecal occult in 2015. Would like to do cologuard Mammogram: last mammogram 2017; Due now. PAST MEDICAL HISTORY: PAST MEDICAL HISTORY Diagnosis Date Abdominal pain, other specified site Depression Diarrhea Fracture, fibula 04/21/2015 mildly displaced spiral right fibula GERD (gastroesophageal reflux disease) Hip arthritis 01/08/2011 Lumbar degenerative disc disease 01/06/2012 Major depressive disorder, recurrent episode, moderate (HCC) 01/18/2019 Tennis elbow Venous insufficiency of both lower extremities 11/12/2016 Venous stasis dermatitis of right lower extremity 11/12/2016 PAST SURGICAL HISTORY Procedure Laterality Date ARTHRP ACETBLR/PROX FEM PROSTC AGRFT/ALGRFT Right 06/28/2012 ARTHRP ACETBLR/PROX FEM PROSTC AGRFT/ALGRFT Left 08/28/2012 ARTHRP KNE CONDYLEANDPLATU MEDIALANDLAT COMPARTMENTS Bilateral 08/2013 DELIVERY ONLY x2 HYSTEROSCOPY BX W/WO DANDC 11/14/2022 LIG/TRNSXJ FLP TUBE ABDL/VAG APPR UNI/BI Tubal ligation MAMM DIAG UNI 02/20/2009 PAST SURGICAL HISTORY OF 07/2007 hernia repair PICC LINE INSERT/CONSULT 05/15/2014 S $ KNEE REVISION Right 07/2014 ALLERGIES Patient has no known allergies. MEDICATIONS Current Outpatient Medications Medication Sig ibuprofen (MOTRIN) 800 mg tablet Take 1 tablet by mouth every 8 hours as needed for pain. Take with food. Do not take the same day as you take naproxen temazepam (RESTORIL) 15 mg Take 1 capsule by mouth at bedtime as needed for up to 180 days. hydrocortisone (ANUSOL-HC) 2.5 % rectal cream by RECTAL route two times a day. levoFLOXacin (LEVAQUIN) 500 mg table (more content not included)... Normal [facility] 12-11-2023 [facility] Telephone (OBGYWM) MEGHA CIFUENTES ([id number]) 1960 F Date Time Provider Department 12/11/23 [facility]DA RODRIGUEZ OBGYWM During your visit today, we recorded the following information about you: Ashley Melvin RN 12/11/2023 11:46 AM Signed Last OV 11/04/22 with RR.. Advised Pt she is overdue for annual/and in need of pap per last OV with RR. Pt requesting refill on Megace. Pt's insurance is out of network and Pt states she is not working and cannot afford to come in. Will send [employer] message informing her she needs to call her insurance to find out who is covered under her insurance. Please address in RR absence. Requested Prescriptions Pending Prescriptions Disp Refills megestrol (MEGACE) 20 mg tablet 30 tablet 4 Sig: Take 1 tablet (20 mg) by mouth once daily. BRODY Lincoln Jennifer, MD 12/11/2023 12:26 PM Signed Has not been seen for over a year. Was suppose to have an EMB at 3 and 6 months to follow for PMB. This needs to be reevaluated. Cannot just keep taking megace without knowing if the hyperplasia has progressed. If she cannot be seen at [facility] then she needs to find another environmental designer . Ashley Melvin RN 12/15/2023 10:01 AM Signed Left message for patient to call office. BRODY Lincoln Jennifer, RN 12/15/2023 2:47 PM Signed Spoke with patient. Reviewed the message from Dr. Fermin below. Patient states that she was told that Medicare would not cover the EMB. Referral states Authorized. Offered to schedule patient an EMB again. Declined at this time. Patient states she took her last Megace and would like Dr. Carcamo to review and order the refill. Aware DM returns to the office tomorrow. BRODY Tripathi Deidre, MD 12/16/2023 4:27 PM Signed I will not be refilling progesterone without an EMB. If she would like to get a second opinion regarding surgical options and management with [facility] we can arrange that. I know she is scared of surgery but she is very high risk patient and she needs to be followed close. My recommendation to her has been she needs a hysteroscopy, DANDC with polypectomy which she was set up for but it was then canceled. She has not been seen in the office for over one year. Tori Salazar RN 12/16/2023 4:43 PM Signed Patient notified. Agreeable to scheduling EMB with DM if her insurance approves. Spoke with SEEMA Barrera regarding the referral placed on 04/02/23. She would like to check on this further since her insurance is OON. Patient aware. She is having phone issues. Ok to leave a detailed message. BRODY Tripathi Annalee, LPN 12/25/2023 12:34 PM Signed Left message that emb precert is approved. Patient can schedule Ellen Kovacs RN 12/28/2023 4:35 PM Signed EMB scheduled. BRODY Armstrong Sherrie 02/08/2024 3:56 PM Signed Nurse transferred patient to ri to r/s EMB patient was no longer on the line tried to call patient twice as current insurance is OON for CCf and need to place another OON referral as current referral was only good until 03/22/24 and next opening with provider is 2024 Allergies As of Date: 12/11/2023 (No Known Allergies) Date Reviewed: 04/06/2023 Reviewed by: Bronwyn Solo APRN.CNP - Fully Assessed Reason for Visit: Refill Request [94] Visit Diagnosis:Endometrial hyperplasia [N85.00] Prescriptions as of 02/08/2024 - temazepam (RESTORIL) 15 mg Take 1 capsule by mouth at bedtime as needed for up to 90 days. - ibuprofen (MOTRIN) 800 mg tablet Take 1 tablet by mouth every 8 hours as needed for pain. Take with food. Do not take the same day as you take naproxen - hydrocortisone (ANUSOL-HC) 2.5 % rectal cream by RECTAL route two times a day. - megestrol (MEGACE) 20 mg tablet Take 1 tablet (20 mg) by mouth once daily. - FLUoxetine (PROZAC) 20 mg capsule Take 1 capsule by mouth once daily. - buPROPion XL (WELLBUTRIN XL) 150 mg 24 hr tablet Take 1 tablet by mouth once daily. - naproxen (NAPROSYN) 500 mg tablet TAKE ONE TABLET BY MOUTH TWICE DAILY WITH FOOD NEEDED FOR PAIN AND INFLAMMATION - cholecalciferol, Vitamin D3, (VITAMIN D3) 1,250 mcg (50,000 unit) cap capsule Take 1 capsule by mouth one time a week for 4 doses. - buPROPion XL (WELLBUTRIN XL) 300 mg 24 hr tablet Take 1 tablet by mouth once daily. - levoFLOXacin (LEVAQUIN) 500 mg tablet Take 500 mg by mouth once daily. - COMPOUNDED PRESCRIPTION [facility] E0651/Segmental Compressor [facility] E067/ Leg Appliance Dx: Lymphedema I89.0 Right Lower Extremity Lifetime Usage Problem List As Of Date 12/11/2023 Noted Resolved VENTRAL HERNIA NOS [K43.9] 08/27/2007 06/15/2008 Carpal tunnel syndrome [G56.00] 03/10/2008 04/20/2019 Adjustment disorder with depressed mood [F43.21]04/24/2008 04/20/2019 ESOPHAGEAL REFLUX [K21.9] 08/09/2008 LATERAL EPICONDYLITIS [M77.10] 09/19/2008 09/28/2014 (more content not included)... Normal [facility] Absolute lymphocyte countOrd ered By: Yamileth Cherry on 11-14-2022 Lymphocytes Auto (Unsp spec) [#/Vol] 0.83 10*3/uL 0.83-4.51 [facility] Basophil percentageOrdered B y: Yamileth Cherry on 11-14-2022 Basophils/100 WBC (Bld) 0.3 % 0-1 [facility] Eosinophils/100 WBC (Bld) 1.5 % 0-5 [facility] Neutrophils (Bld) [#/Vol] 4.6 10*3/uL 2.0-7.7 [facility] Neutrophils/100 WBC (Bld) 76.6 % 47-70 [facility] WBC (Bld) [#/Vol] 6.0 10*3/uL 4.4-11.0 [facility] Blood erythrocytes count (nu mber/volume)Ordered By: Yamileth Cherry on 11-14-2022 RBC (Bld) [#/Vol] 4.13 10*6/uL 4.2-5.4 [facility] Blood hemoglobin measurement (mass/volume)Ordered By: Yamileth Cherry on 11-14-2022 Hemoglobin (Bld) [Mass/Vol] 11.9 g/dL 12.0-15.0 [facility] Blood lymphocytes/100 leukoc ytesOrdered By: Yamileth Cherry on 11-14-2022 Lymphocytes/100 WBC (Bld) 13.9 % 19-41 [facility] Blood monocytes/100 leukocyt esOrdered By: Yamileth Cherry on 11-14-2022 Monocytes/100 WBC (Bld) 7.4 % 0-10 [facility] Blood platelet mean volumeOr dered By: Yamileth Cherry on 11-14-2022 Platelet mean volume (Bld) [Entitic vol] 10.8 fL 6.2-12.0 [facility] Determination of erythrocyte mean corpuscular volume (MCV)Ordered By: Yamileth Cherry on 11-14-2022 MCV (RBC) [Entitic vol] 91.8 fL 81-99 [facility] Hematocrit Auto (Bld) [Volum e fraction]Ordered By: Yamileth Cherry on 11-14-2022 Hematocrit (Bld) [Volume fraction] 37.9 % 37-47 [facility] Laboratory - Hematology and Cell countsOrdered By: Yamileth Cherry on 11-14-2022 Erythrocyte distribution width (RBC) [Entitic vol] 47.2 fL 35.1-43.9 [facility] Erythrocyte distribution width (RBC) [Ratio] 14.1 % 11.6-14.6 [facility] Immature granulocytes/100 WBC (Bld) 0.300 % 0.0-0.9 [facility] Comment on above: IG% - Immature Granu locytes (promyelocytes, myelocytes and metamyelocytes) > 1% indicates that a LEFT SHIFT is Present. MCH (RBC) [Entitic mass] 28.8 pg 27.0-32.0 [facility] Nucleated RBC/100 WBC (Bld) [Ratio] 0 % 0-5 [facility] MCHC Auto (RBC) [Mass/Vol]Or dered By: Yamileth Cherry on 11-14-2022 MCHC (RBC) [Mass/Vol] 31.4 g/dL 32-36 [facility] Platelets bldOrdered By: Yamileth Cherry on 11-14-2022 Platelets (Bld) [#/Vol] 240 10*3/uL 150-450 [facility] PELVIC US WHIon 07-25-[address] [facility] Basophil percentageon 2021 Bilirubin [Mass/Vol] 0.50 mg/dL 0.20-1.00 [facility] Work Phone: Comment on above: For patients on eltr ombopag therapy, use of Dimension [place] TBIL is not recommended. Chloride [Moles/Vol] 107 mmol/L 98-107 [facility] Work Phone: Glucose [Mass/Vol] 96 mg/dL 74-106 [facility] Work Phone: [phone] Potassium [Moles/Vol] 4.3 mmol/L 3.5-5.1 [facility] Work Phone: [phone] Protein [Mass/Vol] 7.5 g/dL 6.4-8.2 [facility] Work Phone: [phone] Sodium [Moles/Vol] 139 mmol/L 136-145 [facility] Work Phone: [phone] WBC (Bld) [#/Vol] 5.6 10*3/uL 4.4-11.0 [facility] Work Phone: [phone] Blood erythrocytes count (nu mber/volume)on 07-05-2021 RBC (Bld) [#/Vol] 4.50 10*6/uL 4.2-5.4 [facility] Work Phone: [phone] Blood hemoglobin measurement (mass/volume)on 07-05-2021 Hemoglobin (Bld) [Mass/Vol] 14.1 g/dL 12.0-15.0 [facility] Work Phone: [phone] Blood platelet mean volumeon 07-05-2021 Platelet mean volume (Bld) [Entitic vol] 10.1 fL 6.2-12.0 [facility] Work Phone: [phone] Determination of erythrocyte mean corpuscular volume (MCV)on 07-05-2021 MCV (RBC) [Entitic vol] 96.2 fL 81-99 [facility] Work Phone: [phone] Direct bilirubinon Bilirubin.direct [Mass/Vol] 0.13 mg/dL 0.00-0.30 [facility] Work Phone: [phone] Erythrocyte sedimentation ra jose m 07-05-2021 ESR (Bld) [Velocity] 11 mm/h 0-30 [facility] Work Phone: [phone] Hematocrit Auto (Bld) [Volum e fraction]on 07-05-2021 Hematocrit (Bld) [Volume fraction] 43.3 % 37-47 [facility] Work Phone: Laboratory - Chemistry and C hemistry - challengeon 07-05-2021 ALP [Catalytic activity/Vol] 91 U/L 45-117 [facility] Work Phone: [phone] ALT [Catalytic activity/Vol] 18 U/L 13-56 [facility] Work Phone: [phone] CO2 [Moles/Vol] 30.0 mmol/L 21.0-32.0 [facility] Work Phone: [phone] Globulin (S) [Mass/Vol] 4.1 g/dL 2.2-4.2 [facility] Work Phone: [phone] Urea nitrogen/Creatinine [Mass ratio] 12.9 mg/mg 10-20 [facility] Work Phone: [phone] Laboratory - Hematology and Cell countson 07-05-2021 Erythrocyte distribution width (RBC) [Entitic vol] 45.5 fL 35.1-43.9 [facility] Work Phone: [phone] Erythrocyte distribution width (RBC) [Ratio] 12.8 % 11.6-14.6 [facility] Work Phone: [phone] MCH (RBC) [Entitic mass] 31.3 pg 27.0-32.0 [facility] Work Phone: MCHC Auto (RBC) [Mass/Vol]on 07-05-2021 MCHC (RBC) [Mass/Vol] 32.6 g/dL 32-36 [facility] Work Phone: No Panel Informationon 07-05 Estimated GFR (MDRD) Amer 98 mL/min >60 [facility] Work Phone: [phone] Comment on above: GFR Calc Estimated GFR (MDRD) Non-Af Amer 81 mL/min >60 [facility] Work Phone: [phone] Comment on above: Non- GFR Calc Platelets bldon 07-05-2021 Platelets (Bld) [#/Vol] 206 10*3/uL 150-450 [facility] Work Phone: [phone] Serum or plasma albumin erick urement (mass/volume)on 07-05-2021 Albumin [Mass/Vol] 3.4 g/dL 3.2-5.0 [facility] Work Phone: Serum or plasma calcium erick urement (mass/volume)on 07-05-2021 Calcium [Mass/Vol] 8.8 mg/dL 8.5-10.1 [facility] Work Phone: Serum or plasma creatinine m easurement (mass/volume)on 07-05-2021 Creatinine [Mass/Vol] 0.77 mg/dL 0.55-1.02 [facility] Work Phone: Comment on above: The validity of the calculated GFR & GFRAA in patients over 70 years has not been determined. Clinical correlation is essential. Serum or plasma urea nitroge n measurement (mass/volume)on 07-05-2021 Urea nitrogen [Mass/Vol] 10 mg/dL 7-18 [facility] Work Phone: Thin prep Papanicolaou smear with manual screeningon 07-05-2021 Thin prep Papanicolaou smear with manual screening 14 U/L 15-37 [facility] Work Phone: Thin prep Papanicolaou smear with manual screening 2 5-15 [facility] Work Phone: CBC with Diffon 04-20-2017 Basophils Auto #/vol (Bld) 0.0 K/mcL Normal 0-0.2 [facility] Comment on above: Performed By: #### C BCDIF ####Unless otherwise noted, all testing performed by [address] [phone]: [id number] Director: Jeremiah Angelo M.D. Basophils/100 WBC Auto (Bld) 0.6 % Normal [facility] Comment on above: Performed By: #### C BCDIF ####Unless otherwise noted, all testing performed by [address] [phone]: [id number] Director: Jeremiah Angelo M.D. Eosinophils 0.2 K/mcL Normal 0-0.5 [facility] Comment on above: Performed By: #### C BCDIF ####Unless otherwise noted, all testing performed by [address] [phone]: [id number] Director: Jeremiah Angelo M.D. Eosinophils/100 leukocytes 2.7 % Normal [facility] Comment on above: Performed By: #### C BCDIF ####Unless otherwise noted, all testing performed by [address]CLIA: [id number] Director: Jeremiah Angelo M.D. Erythrocyte distribution width Auto Ratio (RBC) 15.4 % High 10.0-14.4 [facility] Comment on above: Performed By: #### C BCDIF ####Unless otherwise noted, all testing performed by [address] [phone]: [id number] Director: Jeremiah Angelo M.D. Erythrocytes (RBC) 3.16 M/mcL Low 3.7-5.0 [facility] Comment on above: Performed By: #### C BCDIF ####Unless otherwise noted, all testing performed by [address] [phone]: [id number] Director: Jeremiah Angelo M.D. Hematocrit (HCT) 28.1 % Low 34.4-44.8 [facility] Comment on above: Performed By: #### C BCDIF ####Unless otherwise noted, all testing performed by [address] [phone]: [id number] Director: Jeremiah Angelo M.D. Hemoglobin mass conc (Bld) 9.1 g/dL Low 11.6-15.4 [facility] Comment on above: Performed By: #### C BCDIF ####Unless otherwise noted, all testing performed by [address] [phone]: [id number] Director: Jeremiah Angelo M.D. Lymphocytes 1.2 K/mcL Normal 1.0-3.7 [facility] Comment on above: Performed By: #### C BCDIF ####Unless otherwise noted, all testing performed by [address] [phone]: [id number] Director: Jeremiah Angelo M.D. Lymphocytes/100 leukocytes 19.7 % Normal [facility] Comment on above: Performed By: #### C BCDIF ####Unless otherwise noted, all testing performed by [address] [phone]: [id number] Director: Jeremiah Angelo M.D. MCH 28.7 pg Normal 27.9-33.9 [facility] Comment on above: Performed By: #### C BCDIF ####Unless otherwise noted, all testing performed by [address] [phone]: [id number] Director: Jeremiah Angelo M.D. MCHC mass conc (RBC) 32.3 g/dL Low 33.1-35.1 [facility] Comment on above: Performed By: #### C BCDIF ####Unless otherwise noted, all testing performed by [address] [phone]: [id number] Director: Jeremiah Angelo M.D. MCV 88.9 fL Normal 82.6-98.9 [facility] Comment on above: Performed By: #### C BCDIF ####Unless otherwise noted, all testing performed by [place] [phone]: [id number] Director: Jeremiah Angelo M.D. Monocytes 0.4 K/mcL Normal 0.1-0.6 [facility] Comment on above: Performed By: #### C BCDIF ####Unless otherwise noted, all testing performed by [place] [phone]: [id number] Director: Jeremiah Angelo M.D. Monocytes/100 leukocytes 6.1 % Normal [facility] Comment on above: Performed By: #### C BCDIF ####Unless otherwise noted, all testing performed by [address] [phone]: [id number] Director: Jeremiah Angelo M.D. Neutrophils 4.2 K/mcL Normal 1.2-6.9 [facility] Comment on above: Performed By: #### C BCDIF ####Unless otherwise noted, all testing performed by [place] [phone]: [id number] Director: Jeremiah Angelo M.D. Platelet mean volume (PMV) 8.7 fL Normal 7.0-10.6 [facility] Comment on above: Performed By: #### C BCDIF ####Unless otherwise noted, all testing performed by [address] [phone]: [id number] Director: Jeremiah Angelo M.D. Platelets 270 K/mcL Normal 162-402 [facility] Comment on above: Performed By: #### C BCDIF ####Unless otherwise noted, all testing performed by [address] [phone]: [id number] Director: Jeremiah Angelo M.D. Segmented Neut % 70.9 % Normal [facility] Comment on above: Performed By: #### C BCDIF ####Unless otherwise noted, all testing performed by [address] [phone]: [id number] Director: Jeremiah Angelo M.D. WBC (Leukocytes) 5.9 K/mcL Normal 3.4-10.6 [facility] Comment on above: Performed By: #### C BCDIF ####Unless otherwise noted, all testing performed by [address] [phone]: [id number] Director: Jeremiah Angelo M.D. CBC w/o Diffon 04-17-2017 Erythrocyte distribution width Auto Ratio (RBC) 15.6 % High 10.0-14.4 [facility] Comment on above: Performed By: #### C BCWOD ####Unless otherwise noted, all testing performed by [address] [phone]: [id number] Director: Jeremiah Angelo M.D. Erythrocytes (RBC) 2.99 M/mcL Low 3.7-5.0 [facility] Comment on above: Performed By: #### C BCWOD ####Unless otherwise noted, all testing performed by [address] [phone]: [id number] Director: Jeremiah Angelo M.D. Hematocrit (HCT) 26.5 % Low 34.4-44.8 [facility] Comment on above: Performed By: #### C BCWOD ####Unless otherwise noted, all testing performed by [address] [phone]: [id number] Director: Jeremiah Angelo M.D. Hemoglobin mass conc (Bld) 8.7 g/dL Low 11.6-15.4 [facility] Comment on above: Performed By: #### C BCWOD ####Unless otherwise noted, all testing performed by [address] [phone]: [id number] Director: Jeremiah Angelo M.D. MCH 29.0 pg Normal 27.9-33.9 [facility] Comment on above: Performed By: #### C BCWOD ####Unless otherwise noted, all testing performed by [address] [phone]: [id number] Director: Jeremiah Angelo M.D. MCHC mass conc (RBC) 32.8 g/dL Low 33.1-35.1 [facility] Comment on above: Performed By: #### C BCWOD ####Unless otherwise noted, all testing performed by [address] [phone]: [id number] Director: Jeremiah Angelo M.D. MCV 88.4 fL Normal 82.6-98.9 [facility] Comment on above: Performed By: #### C BCWOD ####Unless otherwise noted, all testing performed by [address] [phone]: [id number] Director: Jeremiah Angelo M.D. Platelet mean volume (PMV) 8.5 fL Normal 7.0-10.6 [facility] Comment on above: Performed By: #### C BCWOD ####Unless otherwise noted, all testing performed by [address] [phone]: [id number] Director: Jeremiah Angelo M.D. Platelets 235 K/mcL Normal 162-402 [facility] Comment on above: Performed By: #### C BCWOD ####Unless otherwise noted, all testing performed by [address] [phone]: [id number] Director: Jeremiah Angelo M.D. WBC (Leukocytes) 4.5 K/mcL Normal 3.4-10.6 [facility] Comment on above: Performed By: #### C BCWOD ####Unless otherwise noted, all testing performed by [address] [phone]: [id number] Director: Jeremiah Angelo M.D. CBC and Differentialon 03-05 Basophils 0.6 % Invalid Interpretation Code [facility] Basophils 0.0 K/mcL Invalid Interpretation Code 0 - 0.2 [facility] Eosinophils 0.1 K/mcL Invalid Interpretation Code 0 - 0.5 [facility] Erythrocytes (RBC) 4.10 M/mcL Invalid Interpretation Code 3.7 - 5.0 [facility] Hematocrit (HCT) 35.9 % Normal 34.4-44.8 [facility] Comment on above: Performed By: #### C BCDIF, CRPQT, SEDR ####Unless otherwise noted, all testing performed by [address] [phone]: [id number] Director: Jeremiah Angelo M.D. Hemoglobin (HGB) 11.9 g/dL Normal 11.6-15.4 [facility] Comment on above: Performed By: #### C BCDIF, CRPQT, SEDR ####Unless otherwise noted, all testing performed by [address] [phone]: [id number] Director: Jeremiah Angelo M.D. Interpretation and review of laboratory results Abnormal Invalid Interpretation Code [facility] Lymphocytes 0.8 K/mcL Low 1.0 - 3.7 [facility] MCH 29.0 pg Normal 27.9-33.9 [facility] Comment on above: Performed By: #### C BCDIF, CRPQT, SEDR ####Unless otherwise noted, all testing performed by [address] [phone]: [id number] Director: Jeremiah Angelo M.D. MCHC 33.1 g/dL Normal 33.1-35.1 [facility] Comment on above: Performed By: #### C BCDIF, CRPQT, SEDR ####Unless otherwise noted, all testing performed by [address] [phone]: [id number] Director: Jeremiah Angelo M.D. MCV 87.6 fL Normal 82.6-98.9 [facility] Comment on above: Performed By: #### C BCDIF, CRPQT, SEDR ####Unless otherwise noted, all testing performed by [place] [phone]: [id number] Director: Jeremiah Angelo M.D. Monocytes 0.3 K/mcL Invalid Interpretation Code 0.1 - 0.6 [facility] Neutrophils 2.4 K/mcL Invalid Interpretation Code 1.2 - 6.9 [facility] Platelet mean volume (PMV) 8.7 fL Normal 7.0-10.6 [facility] Comment on above: Performed By: #### C BCDIF, CRPQT, SEDR ####Unless otherwise noted, all testing performed by [address] [phone]: [id number] Director: Jeremiah Angelo M.D. Platelets 206 K/mcL Invalid Interpretation Code 162 - 402 [facility] RDW-CA 14.2 % Normal 10.0-14.4 [facility] Comment on above: Performed By: #### C BCDIF, CRPQT, SEDR ####Unless otherwise noted, all testing performed by [place] [phone]: [id number] Director: Jeremiah Angelo M.D. Segmented Neut 65.6 % Invalid Interpretation Code [facility] T8 suppressor/100 cells 4.0 10*3/uL Invalid Interpretation Code [facility] T8 suppressor/100 cells 21.3 10*3/uL Invalid Interpretation Code [facility] T8 suppressor/100 cells 8.5 10*3/uL Invalid Interpretation Code [facility] WBC (Leukocytes) 3.6 K/mcL Invalid Interpretation Code 3.4 - 10.6 [facility] CBC with Diffon 03-05-2017 Basophils Auto #/vol (Bld) 0.0 K/mcL Normal 0-0.2 [facility] Comment on above: Performed By: #### C BCDIF, CRPQT, SEDR ####Unless otherwise noted, all testing performed by [address] [phone]: [id number] Director: Jeremiah Angelo M.D. Basophils/100 WBC Auto (Bld) 0.6 % Normal [facility] Comment on above: Performed By: #### C BCDIF, CRPQT, SEDR ####Unless otherwise noted, all testing performed by [address] [phone]: [id number] Director: Jeremiah Angelo M.D. Eosinophils 0.1 K/mcL Normal 0-0.5 [facility] Comment on above: Performed By: #### C BCDIF, CRPQT, SEDR ####Unless otherwise noted, all testing performed by [address] [phone]: [id number] Director: Jeremiah Angelo M.D. Eosinophils/100 leukocytes 4.0 % Normal [facility] Comment on above: Performed By: #### C BCDIF, CRPQT, SEDR ####Unless otherwise noted, all testing performed by [address] [phone]: [id number] Director: Jeremiah Angelo M.D. Erythrocytes (RBC) 4.10 M/mcL Normal 3.7-5.0 [facility] Comment on above: Performed By: #### C BCDIF, CRPQT, SEDR ####Unless otherwise noted, all testing performed by [address] [phone]: [id number] Director: Jeremiah Angelo M.D. Lymphocytes 0.8 K/mcL Low 1.0-3.7 [facility] Comment on above: Performed By: #### C BCDIF, CRPQT, SEDR ####Unless otherwise noted, all testing performed by [address] [phone]: [id number] Director: Jeremiah Angelo M.D. Lymphocytes/100 leukocytes 21.3 % Normal [facility] Comment on above: Performed By: #### C BCDIF, CRPQT, SEDR ####Unless otherwise noted, all testing performed by [address] [phone]: [id number] Director: Jeremiah Angelo M.D. Monocytes 0.3 K/mcL Normal 0.1-0.6 [facility] Comment on above: Performed By: #### C BCDIF, CRPQT, SEDR ####Unless otherwise noted, all testing performed by [address], [place] [phone]: [id number] Director: Jeremiah Angelo M.D. Monocytes/100 leukocytes 8.5 % Normal [facility] Comment on above: Performed By: #### C BCDIF, CRPQT, SEDR ####Unless otherwise noted, all testing performed by [address] [phone]: [id number] Director: Jeremiah Angelo M.D. Neutrophils 2.4 K/mcL Normal 1.2-6.9 [facility] Comment on above: Performed By: #### C BCDIF, CRPQT, SEDR ####Unless otherwise noted, all testing performed by [place] [phone]: [id number] Director: Jeremiah Angelo M.D. Platelets 206 K/mcL Normal 162-402 [facility] Comment on above: Performed By: #### C BCDIF, CRPQT, SEDR ####Unless otherwise noted, all testing performed by [address] [phone]: [id number] Director: Jeremiah Angelo M.D. Segmented Neut % 65.6 % Normal [facility] Comment on above: Performed By: #### C BCDIF, CRPQT, SEDR ####Unless otherwise noted, all testing performed by [address] [phone]: [id number] Director: Jeremiah Angelo M.D. WBC (Leukocytes) 3.6 K/mcL Normal 3.4-10.6 [facility] Comment on above: Performed By: #### C BCDIF, CRPQT, SEDR ####Unless otherwise noted, all testing performed by [address] [phone]: [id number] Director: Jeremiah Angelo M.D. CRP, C-Reactive Proteinon CRP - Inflammation 13.7 mg/L High 0 - 10 mg/L [facility] CRP, C-Reactive Protein 13.7 mg/L High 0.0-10.0 [facility] Comment on above: Performed By: #### C BCDIF, CRPQT, SEDR ####Unless otherwise noted, all testing performed by [address] [phone]: [id number] Director: Jeremiah Angelo M.D. Sed Rateon 03-05-2017 Sed Rate 49 MM/hr. High 0-20 [facility] Comment on above: Performed By: #### C BCDIF, CRPQT, SEDR ####Unless otherwise noted, all testing performed by [address] [phone]: [id number] Director: Jeremiah Angelo M.D. Sedimentation Rateon 017 Sed Rate 49 MM/hr. High 0 - 20 [facility] Basic Metabolic Panelon 11-2 Calcium 8.9 mg/dL Normal 8.4-10.2 [facility] Comment on above: Performed By: #### C BCWOD, CHEM8, SEDR ####Unless otherwise noted, all testing performed by [address] [phone]: [id number] Director: Jeremiah Angelo M.D. Chloride 105 mmol/L Normal 98-108 [facility] Comment on above: Performed By: #### C BCWOD, CHEM8, SEDR ####Unless otherwise noted, all testing performed by [place] [phone]: [id number] Director: Jeremiah Angelo M.D. CO2 27 mmol/L Normal 21-32 [facility] Comment on above: Performed By: #### C BCWOD, CHEM8, SEDR ####Unless otherwise noted, all testing performed by [place] [phone]: [id number] Director: Jeremiah Angelo M.D. Creatinine 0.86 mg/dL Normal 0.40-1.10 [facility] Comment on above: Performed By: #### C BCWOD, CHEM8, SEDR ####Unless otherwise noted, all testing performed by [place] [phone]: [id number] Director: Jeremiah Angelo M.D. eGFR (black) mL/min/{1.73_m2} Normal [facility] Comment on above: GFR Calc Result Comment: Afri can Gabonese GFR Calc Performed By: #### C BCWOD, CHEM8, SEDR ####Unless otherwise noted, all testing performed by [place] [phone]: [id number] Director: Jeremiah Angelo M.D. eGFR (non-black) mL/min/{1.73_m2} Normal [facility] Comment on above: Non- GFR Calc eGFR is an estimated Glomerular Filtration Rate based on the value of the patient's serum creatinine. In outpatients, eGFR should be used as a helpful tool in screening for CKD. In inpatients or patients with acute renal failure, eGFR represents the GFR at the moment of the draw and should be used with caution. Result Comment: Non- GFR CalceGFR is an estimated Glomerular Filtration Rate based on the valueof the patient's serum creatinine. In outpatients, eGFR should be usedas a helpful tool in screening for CKD. In inpatients or patients withacute renal failure, eGFR represents the GFR at the moment of the drawand should be used with caution. Performed By: #### C BCWOD, CHEM8, SEDR ####Unless otherwise noted, all testing performed by [address] [phone]: [id number] Director: Jeremiah Angelo M.D. Glucose mass conc 81 mg/dL Normal 70-99 [facility] Comment on above: This test result chris ht be falsely depressed or falsely elevated on samples drawn from patients taking Sulfasalazine and Sulfapyridine. Venipuncture should occur prior to taking either of these drugs. Result Comment: This test result might be falsely depressed or falsely elevated onsamples drawn from patients taking Sulfasalazine and Sulfapyridine.Venipuncture should occur prior to taking either of these drugs. Performed By: #### C BCWOD, CHEM8, SEDR ####Unless otherwise noted, all testing performed by [address] [phone]: [id number] Director: Jeremiah Angelo M.D. Potassium molar conc 3.9 mmol/L Normal 3.5-5.1 [facility] Comment on above: Performed By: #### C BCWOD, CHEM8, SEDR ####Unless otherwise noted, all testing performed by [address] [phone]: [id number] Director: Jeremiah Angelo M.D. Sodium 139 mmol/L Normal 135-145 [facility] Comment on above: Performed By: #### C BCWOD, CHEM8, SEDR ####Unless otherwise noted, all testing performed by [address] [phone]: [id number] Director: Jeremiah Angelo M.D. Urea nitrogen 10 mg/dL Normal 8-25 [facility] Comment on above: Performed By: #### C BCWOD, CHEM8, SEDR ####Unless otherwise noted, all testing performed by [address] [phone]: [id number] Director: Jeremiah Angelo M.D. CBCon 02-18-2017 Erythrocyte distribution width Auto Ratio (RBC) 14.4 % Normal 10.0-14.4 [facility] Comment on above: Performed By: #### C BCWOD, CHEM8, SEDR ####Unless otherwise noted, all testing performed by [address] [phone]: [id number] Director: Jeremiah Angelo M.D. Erythrocytes (RBC) 3.70 M/mcL Invalid Interpretation Code 3.7 - 5.0 [facility] Hematocrit (HCT) 32.9 % Low 34.4-44.8 [facility] Comment on above: Performed By: #### C BCWOD, CHEM8, SEDR ####Unless otherwise noted, all testing performed by [address] [phone]: [id number] Director: Jeremiah Angelo M.D. Hemoglobin mass conc (Bld) 11.0 g/dL Low 11.6-15.4 [facility] Comment on above: Performed By: #### C BCWOD, CHEM8, SEDR ####Unless otherwise noted, all testing performed by [address] [phone]: [id number] Director: Jeremiah Angelo M.D. Interpretation and review of laboratory results Abnormal Invalid Interpretation Code [facility] MCH 29.6 pg Normal 27.9-33.9 [facility] Comment on above: Performed By: #### C BCWOD, CHEM8, SEDR ####Unless otherwise noted, all testing performed by [place] [phone]: [id number] Director: Jeremiah Angelo M.D. MCHC mass conc (RBC) 33.3 g/dL Normal 33.1-35.1 [facility] Comment on above: Performed By: #### C BCWOD, CHEM8, SEDR ####Unless otherwise noted, all testing performed by [place] [phone]: [id number] Director: Jeremiah Angelo M.D. MCV 88.8 fL Normal 82.6-98.9 [facility] Comment on above: Performed By: #### C BCWOD, CHEM8, SEDR ####Unless otherwise noted, all testing performed by [place] [phone]: [id number] Director: Jeremiah Angelo M.D. Platelet mean volume (PMV) 8.8 fL Normal 7.0-10.6 [facility] Comment on above: Performed By: #### C BCWOD, CHEM8, SEDR ####Unless otherwise noted, all testing performed by [address] [phone]: [id number] Director: Jeremiah Angelo M.D. Platelets 198 K/mcL Invalid Interpretation Code 162 - 402 [facility] WBC (Leukocytes) 3.6 K/mcL Invalid Interpretation Code 3.4 - 10.6 [facility] CBC w/o Diffon 02-18-2017 Erythrocytes (RBC) 3.70 M/mcL Normal 3.7-5.0 [facility] Comment on above: Performed By: #### C BCWOD, CHEM8, SEDR ####Unless otherwise noted, all testing performed by [address] [phone]: [id number] Director: Jeremiah Angelo M.D. Platelets 198 K/mcL Normal 162-402 [facility] Comment on above: Performed By: #### C BCWOD, CHEM8, SEDR ####Unless otherwise noted, all testing performed by [address] [phone]: [id number] Director: Jeremiah Angelo M.D. WBC (Leukocytes) 3.6 K/mcL Normal 3.4-10.6 [facility] Comment on above: Performed By: #### C BCWOD, CHEM8, SEDR ####Unless otherwise noted, all testing performed by [address] [phone]: [id number] Director: Jeremiah Angelo M.D. Sed Rateon 02-18-2017 Sed Rate 49 MM/hr. High 0-20 [facility] Comment on above: Performed By: #### C BCWOD, CHEM8, SEDR ####Unless otherwise noted, all testing performed by [place] [address] [place], [place] [phone]: [id number] Director: Jeremiah Angelo M.D. Sedimentation Rateon -29-2 017 Sed Rate 49 MM/hr. High 0 - 20 [facility] Vital Signs Date Time Vital Sign Value Performing Clinician Faci lity 11-09-2024 15:31-0400 Diastolic blood pressure 91 mm[Hg] Dr. Ty Narayanan MD Work Phone: [phone] [place] [address] 11-09-2024 15:31-0400 Heart rate 93 /min Dr. Ty Narayanan MD Work Phone: [phone] [place] [address] 11-09-2024 15:31-0400 Respiratory rate 17 /min Dr. Ty Narayanan MD Work Phone: [phone] [place] [address] 11-09-2024 15:31-0400 SaO2% (BldA) [Mass fraction] 98 % Dr. Ty Narayanan MD Work Phone: [phone] [place] [address] 11-09-2024 15:31-0400 Systolic blood pressure 159 mm[Hg] Dr. Ty Narayanan MD Work Phone: [phone] [place] [address] 11-09-2024 15:30-0400 Body temperature 98.4 [degF] Dr. Ty Narayanan MD Work Phone: [phone] [address] [place] [address] 11-09-2024 12:33-0400 Body height 177.[address] Ty Narayanan MD Work Phone: [phone] [place] [address] 11-09-2024 12:33-0400 Body mass index (BMI) [Ratio] 54.1 kg/m2 Dr. Ty Narayanan MD Work Phone: [phone] [place] [address] 11-09-2024 12:33-0400 Body weight 171.[address] Ty Narayanan MD Work Phone: [phone] [place] [address] 05-04-2024 14:55-0500 Body height 171.5 cm Bronwyn Hughesf CYTOLOGY SUPERVISOR.SUPERVISOR LATHING Work Phone: [facility] 05-04-2024 14:55-0500 Body mass index (BMI) [Ratio] 55.28 kg/m2 Bronwyn Danielshof CYTOLOGY SUPERVISOR.SUPERVISOR LATHING Work Phone: [facility] 05-04-2024 14:55-0500 Body weight 162.6 kg Bronwyn Danielshof CYTOLOGY SUPERVISOR.SUPERVISOR LATHING Work Phone: [facility] 05-04-2024 14:55-0500 Diastolic blood pressure 96 mm[Hg] Bronwyn Danielshof CYTOLOGY SUPERVISOR.SUPERVISOR LATHING Work Phone: [facility] 05-04-2024 14:55-0500 Heart rate 72 /min Bronwyn Danielshof CYTOLOGY SUPERVISOR.SUPERVISOR LATHING Work Phone: [facility] 05-04-2024 14:55-0500 Respiratory rate 18 /min Bronwyn Danielshof CYTOLOGY SUPERVISOR.SUPERVISOR LATHING Work Phone: [facility] 05-04-2024 14:55-0500 SaO2% (BldA) [Mass fraction] 96 % Bronwyn Hughesf CYTOLOGY SUPERVISOR.SUPERVISOR LATHING Work Phone: [facility] 05-04-2024 14:55-0500 Systolic blood pressure 130 mm[Hg] Bronwyn Danielshof CYTOLOGY SUPERVISOR.SUPERVISOR LATHING Work Phone: [facility] 11-14-2022 09:41-0400 Body temperature 98.9 [degF] [facility] 11-14-2022 09:41-0400 Diastolic blood pressure 87 mm[Hg] [facility] 11-14-2022 09:41-0400 Heart rate 78 /min [facility] 11-14-2022 09:41-0400 Respiratory rate 16 /min [facility] 11-14-2022 09:41-0400 SaO2% (BldA) [Mass fraction] 95 % [facility] 11-14-2022 09:41-0400 Systolic blood pressure 104 mm[Hg] [facility] 11-14-2022 07:07-0400 Body height 177.8 cm [facility] 11-14-2022 07:07-0400 Body mass index (BMI) [Ratio] 52.2 kg/m2 [facility] 11-14-2022 07:07-0400 Body weight 165 kg [facility] 11-04-2022 13:58-0400 Body weight 163.29 kg Carolina Galloway MD Work Phone: [facility] 11-04-2022 13:58-0400 Diastolic blood pressure 86 mm[Hg] Carolina Galloway MD Work Phone: [facility] 11-04-2022 13:58-0400 Systolic blood pressure 132 mm[Hg] Carolina Galloway MD Work Phone: [facility] 09-09-2022 11:47-0400 Body weight 160.57 kg Linda Carcamo MD Work Phone: [facility] 09-09-2022 11:47-0400 Diastolic blood pressure 84 mm[Hg] Linda Carcamo MD Work Phone: [facility] 09-09-2022 11:47-0400 Systolic blood pressure 132 mm[Hg] Linda Carcamo MD Work Phone: [facility] 07-04-2022 09:05-0400 Body weight 161.93 kg Linda Carcamo MD Work Phone: [facility] 07-04-2022 09:05-0400 Diastolic blood pressure 84 mm[Hg] Linda Carcamo MD Work Phone: [facility] 07-04-2022 09:05-0400 Systolic blood pressure 134 mm[Hg] Linda Carcamo MD Work Phone: [facility] 03-19-2022 14:20-0500 Body height 177.[address] Ty Narayanan Work Phone: [facility] 03-19-2022 14:20-0500 Body mass index (BMI) [Ratio] 50.4 kg/m2 Dr. Ty Narayanan Work Phone: [facility] 03-19-2022 14:20-0500 Body weight 159.[address] Ty Narayanan Work Phone: [facility] 01-16-2022 10:41-0400 Body weight 156.49 kg Bronwyn Tannhof CYTOLOGY SUPERVISOR.SUPERVISOR LATHING Work Phone: [facility] 01-16-2022 10:41-0400 Diastolic blood pressure 94 mm[Hg] Bronwyn Tannhof CYTOLOGY SUPERVISOR.SUPERVISOR LATHING Work Phone: [facility] 01-16-2022 10:41-0400 Heart rate 86 /min Bronwyn Tannhof CYTOLOGY SUPERVISOR.SUPERVISOR LATHING Work Phone: [facility] 01-16-2022 10:41-0400 Respiratory rate 20 /min Bronwyn Tannhof CYTOLOGY SUPERVISOR.SUPERVISOR LATHING Work Phone: [facility] 01-16-2022 10:41-0400 SaO2% (BldA) [Mass fraction] 96 % Bronwyn Tannhof CYTOLOGY SUPERVISOR.SUPERVISOR LATHING Work Phone: [facility] 01-16-2022 10:41-0400 Systolic blood pressure 140 mm[Hg] Bronwyn Tannhof CYTOLOGY SUPERVISOR.SUPERVISOR LATHING Work Phone: [facility] 06-21-2021 10:45-0400 Body weight 159.39 kg Ty Narayanan MD Work Phone: [facility] 06-21-2021 10:45-0400 Diastolic blood pressure 90 mm[Hg] Ty Narayanan MD Work Phone: [facility] 06-21-2021 10:45-0400 Heart rate 74 /min Ty Narayanan MD Work Phone: [facility] 06-21-2021 10:45-0400 Respiratory rate 16 /min Ty Narayanan MD Work Phone: [facility] 06-21-2021 10:45-0400 Systolic blood pressure 140 mm[Hg] Ty Narayanan MD Work Phone: [facility] Encounters Encounter Date Encounter Type Care Provider Facility Start: 11-14-2024 ambulatory Miguel Angel Vargas Facility:[facility] Start: 11-09-2024 End: 11-09-2024 Emergency department patient visit Dr. Ty Narayanan MD Work Phone: -Emergency Department Work Phone: Start: 11-04-2024 End: 11-04-2024 Telephone encounter Ty Narayanan MD Work Phone: [facility] [place] Comment on above: Patient Update Start: 05-04-2024 End: 05-04-2024 ambulatory TY NARAYANAN Facility:[facility] Start: 05-04-2024 End: 05-04-2024 Patient encounter procedure Bronwyn Solo APRN.CNP Work Phone: [facility] [place] Comment on above: Medicare annual well ness visit, subsequent (Primary Dx); Cellulitis of right lower extremity; Fatigue, unspecified type; Iron deficiency anemia due to chronic blood loss; Situational stress; Major depressive disorder, recurrent episode, moderate (HCC); Hyperlipidemia LDL goal <100; Insomnia, unspecified type; [place] on CPAP; Vitamin D deficiency; Degeneration of intervertebral disc of lumbar region with discogenic back pain; Encounter for screening mammogram for breast cancer; Screening for colon cancer; Women's annual routine gynecological examination; Encounter for screening examination for other mental health and behavioral disorders Start: 04-20-2024 End: 04-20-2024 Refill Ty Narayanan MD Work Phone: [facility] [place] Comment on above: Refill Request Start: 01-28-2024 End: 01-28-2024 Refill Ty Narayanan MD Work Phone: [facility] [place] Comment on above: Refill Request Start: 12-28-2023 End: 12-28-2023 Refill Ty Narayanan MD Work Phone: [facility] [place] Comment on above: Refill Request Start: 12-11-2023 End: 12-16-2023 Telephone encounter Linda Carcamo MD Work Phone: OB/Gynecology Comment on above: Refill Request Start: 12-08-2023 End: 12-08-2023 Refill Linda Carcamo MD Work Phone: OB/Gynecology Comment on above: Refill Request Start: 10-21-2023 Telephone encounter Ty meeks MD Work Phone: [facility] Comment on above: Patient Question Start: 08-19-2023 ambulatory Ty cotto MD Work Phone: Internal Medicine [facility] Start: 08-14-2023 Telephone encounter Ty meeks MD Work Phone: Family [facility] Comment on above: Question Start: 07-28-2023 Refill Ty cotto MD Work Phone: [facility] Comment on above: Refill Request Start: 07-15-2023 Refill Linda Carcamo MD Work Phone: OB/Gynecology Comment on above: Refill Request Start: 02-16-2023 Telephone encounter Linda Caracmo MD Work Phone: OB/Gynecology Comment on above: AUB Start: 01-16-2023 Telephone encounter Linda Carcamo MD Work Phone: OB/Gynecology Comment on above: Patient Question Start: 01-13-2023 Telephone encounter Linda Carcamo MD Work Phone: OB/Gynecology Comment on above: AUB Start: 11-14-2022 End: 11-14-2022 Admission to same day surgery center [facility] Start: 11-14-2022 End: 11-14-2022 ambulatory [facility] Work Phone: Start: 11-04-2022 End: 11-04-2022 Patient encounter procedure Carolina Galloway MD Work Phone: OB/Gynecology Comment on above: PMB (postmenopausal bleeding) (Primary Dx); Endometrial polyp Start: 10-29-2022 Telephone encounter Linda Carcamo MD Work Phone: OB/Gynecology Comment on above: Insurance Authorizat ion Start: 09-24-2022 Admission to [facility] Linda Carcamo MD Work Phone: OB/Gynecology Comment on above: surgery confirmation Start: 09-24-2022 E-mail encounter tejal rivas caregiver Linda Carcamo MD [facility] Start: 09-10-2022 ambulatory Ty cotto MD Work Phone: Internal Medicine [facility] [place] Start: 09-09-2022 End: 09-09-2022 Patient encounter procedure Linda Carcamo MD Work Phone: OB/Gynecology Comment on above: PMB (postmenopausal bleeding) (Primary Dx); Endometrial polyp; Endometrial hyperplasia Start: 09-04-2022 Refill Ty cotto MD Work Phone: Family [facility] Comment on above: Refill Request Appointment Start: 08-22-2022 Telephone encounter Ty meeks MD Work Phone: [facility] Comment on above: Forms (Rx fo pneumat ic compression device from [employer]. ) Start: 07-25-2022 End: 07-25-2022 ambulatory Ob Ultrasound Work Phone: OB/Gynecology Comment on above: RECOVERY ANALYST Ultrasound Start: 07-25-2022 End: 07-25-2022 Patient encounter procedure Macadam Raker [place] [facility] Start: 07-10-2022 Telephone encounter Linda Carcamo MD Work Phone: OB/Gynecology Comment on above: Schedule Surgery Start: 07-04-2022 End: 07-04-2022 Patient encounter procedure Linda Carcamo MD Work Phone: OB/Gynecology Comment on above: PMB (postmenopausal bleeding) (Primary Dx); Endometrial hyperplasia; Class 3 severe obesity with body mass index (BMI) of 50.0 to 59.9 in adult, unspecified obesity type, unspecified whether serious comorbidity present (HCC) Start: 06-12-2022 Refill Ty cotto MD Work Phone: [facility] Comment on above: Refill Request Start: 05-12-2022 End: 05-12-[address] Ty Narayanan Work Phone: [facility] Start: 05-09-2022 End: 05-09-[address] Ty Narayanan Work Phone: [facility] Work Phone: Start: 05-09-2022 End: 05-09-[address] Ty Narayanan Work Phone: [facility] Start: 03-27-2022 Telephone encounter Teressa mcfarlane CYTOLOGY SUPERVISOR.SUPERVISOR LATHING Work Phone: OB/Gynecology Comment on above: Appointment (Patient needs to call billing about [employer]. She prefers to come to the [place] location.) Start: 03-19-2022 End: 03-19-[address] Ty Narayanan Work Phone: [facility] Start: 03-10-2022 End: 03-10-[address] Ty Narayanan Work Phone: [facility] Start: 02-11-2022 Refill Ty cotto MD Work Phone: [facility] Comment on above: Refill Request Start: 01-23-2022 Telephone encounter Bronwyn nair CYTOLOGY SUPERVISOR.SUPERVISOR LATHING Work Phone: [facility] Comment on above: Results (Labs ) Start: 01-16-2022 End: 01-16-2022 Patient encounter procedure Bronwyn Solo APRN.SUPERVISOR LATHING Work Phone: [facility] Comment on above: Major depressive dis order, recurrent episode, moderate (HCC) (Primary Dx); Insomnia, unspecified type; Arthritis of both knees; Vitamin D deficiency; Screening for diabetes mellitus; Screening cholesterol level Start: 09-09-2021 Telephone encounter Ty meeks MD Work Phone: [facility] Comment on above: handicap parking scr ipt Start: 07-05-2021 End: 07-05-2021 Patient encounter procedure [facility] Start: 06-21-2021 End: 06-21-2021 Patient encounter procedure Ty Narayanan MD Work Phone: [facility] Comment on above: Major depressive dis order, recurrent episode, moderate (HCC) (Primary Dx); Insomnia, unspecified type; Arthritis of both knees Start: 04-17-2017 Ambulatory Clint Cedeño y:[place] Start: 03-05-2017 End: 03-05-2017 Ambulatory Clint Devine Work Phone: [facility] Start: 02-18-2017 Ambulatory Clint Cedeño y:[place] Start: 02-18-2017 End: 02-18-2017 Ambulatory Clint Devine Work Phone: [facility] Procedures Date Procedure Procedure Detail Performing Clinician Start: 11-09-[address] Ty Narayanan MD Work Phone: Start: 11-14-2022 Hysteroscopy,D&C Symphion (Not Applicable) Start: 07-25-2022 Us pelvic nonobstetric real-time image complete Linda Carcamo MD Work Phone: Start: 05-09-2022 MRI of lumbar spine Dr. Ty Narayanan Work Phone: Start: 03-19-2022 X-ray of lumbar spine, two or three views Dr. Ty Narayanan Work Phone: Start: 01-16-2022 Lipid 1996 panel - Serum or Plasma Linda Carcamo MD Work Phone: Start: 12-30-2016 Mammography Ty Narayanan MD Work Phone: History of operative procedure on knee Status post bilateral knee replacements Plan of Treatment Date Care Activity Detail Author Start: 01-12-2031 Urine microalbumin profile [facility] Start: 01-16-2027 Lipid 1996 panel - Serum or Plasma Lipid Screening [facility] Start: 01-16-2027 Lipid panel Lipid Screening [facility] Start: 01-16-2027 LIPID SCREEN LIPID SCREEN [facility] Start: 11-06-2025 LIPID SCREEN LIPID SCREEN [facility] Start: 05-04-2025 Anxiety Screening Anxiety Screening [facility] Start: 05-04-2025 Pneumococcal Vaccine : 50+ (1 of 1 - PCV) Pneumococcal Vaccine: 50+ (1 of 1 - PCV) [facility] Comment on above: Postponed from 12/21 (Declined at this time) Start: 05-04-2025 RSV Vaccine (1 - Ris k 60-74 years 1-dose series) RSV Vaccine (1 - Risk 60-74 years 1-dose series) [facility] Comment on above: Postponed from 12/21 (Declined at this time) Start: 05-04-2025 Shingrix Vaccine (1 of 2) Shingrix Vaccine (1 of 2) [facility] Comment on above: Postponed from 12/21 (Declined at this time) Start: 01-16-2025 DIABETES SCREEN DIABETES SCREEN [facility] Start: 01-16-2025 Diabetes Screening Diabetes Screenin g [facility] Start: 11-09-2024 [facility] Start: 06-01-2024 End: 06-01-2024 Follow-up encounter 06/01/2024 5:00 PM EDT [facility] [place] [address] [place] [address] Bronwyn Solo, LUCITA.SUPERVISOR LATHING [address] [place], [place] [id number] 1 month follow up [facility] [place] Comment on above: 1 month follow up Start: 05-04-2024 End: 08-03-2024 25-hydroxyvitamin D3 [Mass/volume] in Serum or Plasma VITAMIN D 25 HYDROXY Lab Routine Fatigue, unspecified type Vitamin D deficiency Expected: 05/04/2024, Expires: 08/03/2024 [facility] Work Phone: Comment on above: Expected: 05/04/2024 , Expires: 08/03/2024 Start: 05-04-2024 End: 08-03-2024 CBC W Auto Differential panel - Blood COMPLETE BLOOD COUNT AND DIFFERENTIAL Lab Routine Fatigue, unspecified type Expected: 05/04/2024, Expires: 08/03/[address] [facility] Comment on above: Expected: 05/04/2024 , Expires: 08/03/2024 Start: 05-04-2024 End: 08-03-2024 Cobalamin (Vitamin B12) [Mass/volume] in Serum or Plasma VITAMIN B12 Lab Routine Fatigue, unspecified type Expected: 05/04/2024, Expires: 08/03/[address] [facility] Comment on above: Expected: 05/04/2024 , Expires: 08/03/2024 Start: 05-04-2024 End: 08-03-2024 Comprehensive metabolic 2000 panel - Serum or Plasma COMPREHENSIVE METABOLIC PANEL Lab Routine Medicare annual wellness visit, subsequent Expected: 05/04/2024, Expires: 08/03/[address] [facility] Comment on above: Expected: 05/04/2024 , Expires: 08/03/2024 Start: 05-04-2024 End: 08-03-2024 Ferritin [Mass/volume] in Serum or Plasma FERRITIN Lab Routine Fatigue, unspecified type Expected: 05/04/2024, Expires: 08/03/[address] [facility] Comment on above: Expected: 05/04/2024 , Expires: 08/03/2024 Start: 05-04-2024 End: 08-03-2024 Hemoglobin A1c in Blood HEMOGLOBIN A1C Lab Routine Fatigue, unspecified type Expected: 05/04/2024, Expires: 08/03/[address] [facility] Comment on above: Expected: 05/04/2024 , Expires: 08/03/2024 Start: 05-04-2024 End: 08-03-2024 Iron and Iron binding capacity panel - Serum or Plasma IRON AND TIBC Lab Routine Fatigue, unspecified type Expected: 05/04/2024, Expires: 08/03/[address] [facility] Comment on above: Expected: 05/04/2024 , Expires: 08/03/2024 Start: 05-04-2024 End: 08-03-2024 Lipid 1996 panel - Serum or Plasma LIPID PANEL BASIC Lab Routine Hyperlipidemia LDL goal <100 Expected: 05/04/2024, Expires: 08/03/[address] [facility] Comment on above: Expected: 05/04/2024 , Expires: 08/03/2024 Start: 05-04-2024 End: 08-03-2024 Thyrotropin [Units/volume] in Serum or Plasma THYROID STIMULATING HORMONE Lab Routine Fatigue, unspecified type Expected: 05/04/2024, Expires: 08/03/[address] [facility] Comment on above: Expected: 05/04/2024 , Expires: 08/03/2024 Start: 04-06-2024 Covid-19 Vaccine ( season) Covid-19 Vaccine ( season) [facility] Comment on above: Postponed from 11/21 (Declined at this time) Start: 04-06-2024 RSV Vaccine (1 - 1-d ose 60+ series) RSV Vaccine (1 - 1-dose 60+ series) [facility] Comment on above: Postponed from 12/21 (Declined at this time) Start: 04-06-2024 RSV Vaccine (1 - Ris k 60-74 years 1-dose series) RSV Vaccine (1 - Risk 60-74 years 1-dose series) [facility] Comment on above: Postponed from 12/21 (Declined at this time) Start: 02-10-2024 End: 02-10-2024 Patient encounter procedure 02/10/2024 9:00 AM EST Office Visit OB/Gynecology [address] [place] [address] Linda Rodriguez MD [address] [place] [address] [facility] Comment on above: [facility] Start: 12-15-2023 HPV TESTING HPV TESTING [facility] Start: 12-15-2023 PAP TESTING PAP TESTING [facility] Start: 12-15-2023 Screening for malign ant neoplasm of cervix [facility] Start: 11-22-2023 Covid-19 Vaccine ( season) Covid-19 Vaccine ( season) [facility] Start: 11-22-2023 Covid-19 Vaccine ( season) Covid-19 Vaccine ( season) [facility] Start: 11-22-2023 Influenza vaccination [facility] Start: 11-07-2023 DIABETES SCREEN DIABETES SCREEN [facility] Start: 01-16-2023 COVID-19 VACCINE (#1) COVID-19 VACCI NE (#1) [facility] Comment on above: Postponed from 06/21 (Declined at this time) Start: 01-16-2023 HEPATITIS B (1 of 3 - 3-dose series) HEPATITIS B (1 of 3 - 3-dose series) [facility] Comment on above: Postponed from 12/21 (Declined at this time) Start: 01-16-2023 SHINGRIX VACCINE (1 of 2) SHINGRIX VACCINE (1 of 2) [facility] Comment on above: Postponed from 12/21 (Declined at this time) Start: 2022 RSV Vaccine (1 - 1-d ose 60+ series) RSV Vaccine (1 - 1-dose 60+ series) [facility] Start: 2022 RSV Vaccine (1 - Ris k 60-74 years 1-dose series) RSV Vaccine (1 - Risk 60-74 years 1-dose series) [facility] Start: 11-21-2022 Influenza vaccination [facility] Start: 11-14-2022 Ambulation without limitation [facility] Start: 11-14-2022 Medical regimen orde rs management [facility] Start: 11-14-2022 Medication education [facility] Start: 11-14-2022 Patient discharge [facility] Start: 11-14-2022 Procedure discontinued [facility] Start: 11-14-2022 Taking patient vital signs [facility] Start: 11-14-2022 Vital signs measurements [facility] Start: 11-14-2022 [facility] Start: 09-19-2022 Influenza vaccination INFLUENZA (#1) [facility] Comment on above: Postponed from 11/21 (Declined at this time) Start: 07-04-2022 End: 07-05-2023 PELVIC US WHI PELVIC US WHI Anc Imaging Routine PMB (postmenopausal bleeding) Expected: 07/04/2022, Expires: 07/05/2023 [facility] Work Phone: Comment on above: Expected: 07/04/2022 , Expires: 07/05/2023 Start: 01-16-2022 End: 03-18-2022 25-hydroxyvitamin D3 [Mass/volume] in Serum or Plasma [facility] Work Phone: Comment on above: Expected: 01/16/2022 , Expires: 03/18/2022 Start: 01-16-2022 End: 03-18-2022 Comprehensive metabolic 2000 panel - Serum or Plasma [facility] Work Phone: Comment on above: Expected: 01/16/2022 , Expires: 03/18/2022 Start: 01-16-2022 End: 03-18-2022 Hemoglobin A1c in Blood [facility] Work Phone: Comment on above: Expected: 01/16/2022 , Expires: 03/18/2022 Start: 01-16-2022 End: 03-18-2022 Lipid 1996 panel - Serum or Plasma [facility] Work Phone: Comment on above: Expected: 01/16/2022 , Expires: 03/18/2022 Start: 11-21-2021 Influenza vaccination INFLUENZA (Sea son Ended) [facility] Start: 06-24-2018 COLORECTAL CANCER SCREENING COLORECTAL CANCER SCREENING [facility] Start: 06-24-2018 FECAL OCCULT BLOOD FECAL OCCULT BLOO D [facility] Start: 06-24-2018 Screening for malign ant neoplasm of colon [facility] Start: 12-30-[address] [facility] Start: 12-30-2017 Screening for malign ant neoplasm of breast Mammogram Screening [facility] Start: 2012 Pneumococcal Vaccine : 50+ (1 of 1 - PCV) Pneumococcal Vaccine: 50+ (1 of 1 - PCV) [facility] Start: 2012 SHINGRIX VACCINE (1 of 2) SHINGRIX VACCINE (1 of 2) [facility] Start: 12-22-2007 COLOGUARD (FIT-DNA) COLOGUARD (FIT-D NA) [facility] Start: 12-22-2007 Colonoscopy COLONOSCOPY [facility] Start: 12-22-[address] COLONOGRAPHY [facility] Start: 12-22-2007 Screening for malign ant neoplasm of colon [facility] Start: 12-22-2007 SIGMOIDOSCOPY SIGMOIDOSCOPY [facility] Start: 1980 Anxiety Screening Anxiety Screening [facility] Start: 12-22-1967 COVID-19 VACCINE (#1) COVID-19 VACCI NE (#1) [facility] Start: 12-22-1967 COVID-19 VACCINE (1) COVID-19 VACCIN E (1) [facility] Start: 06-22-1961 Covid-19 Vaccine (#1) Covid-19 Vacci ne (#1) [facility] COLOGUARD COLOGUARD Lab Ro utine Screening for colon cancer Ordered: 05/04/[address] [facility] Comment on above: Ordered: 05/04/2024 End: 06-03-2025 DBT Breast - bilateral screening LEONIE SCREENING W STEVEN Radiology Routine Encounter for screening mammogram for breast cancer 1 Occurrences starting 05/04/2024 until 06/03/[address] [facility] Comment on above: 1 Occurrences starti ng 05/04/2024 until 06/03/2025 Endometrial bx w/wo endocervix bx w/o dilat spx ENDOMETRIAL BIOPSY Procedures Routine PMB (postmenopausal bleeding) Ordered: 07/04/2022 [facility] Work Phone: Comment on above: Ordered: 07/04/2022 End: 10-10-2023 LEONIE SCREENING LEONIE SCREENING Radiology Routine Encounter for screening mammogram for breast cancer 1 Occurrences starting 09/10/2022 until 10/10/2023 [facility] Work Phone: Comment on above: 1 Occurrences starti ng 09/10/2022 until 10/10/2023 End: 09-17-2024 MG Breast Screening LEONIE SCREENING Radiology Routine Encounter for screening mammogram for breast cancer 1 Occurrences starting 08/19/2023 until 09/17/2024 [facility] Work Phone: Comment on above: 1 Occurrences starti ng 08/19/2023 until 09/17/2024 Patient Education Cellulitis Dc ED Lymphedema [facility] Work Phone: Patient referral [facility] Work Phone: SURGICAL PATHOLOGY SURGICAL PATH OLOGY Lab Routine PMB (postmenopausal bleeding) 07/04/2022 11:43 AM EDT [facility] Work Phone: [facility] Immunizations Immunization Date Immunization Notes Care Provider Fa cili 01-12-2021 tetanus toxoid, reduced diphtheria toxoid, and acellular pertussis vaccine, adsorbed Ty Narayanan MD Work Phone: [facility] Work Phone: 01-04-2018 influenza virus vaccine, unspecified formulation Linda Carcamo MD Work Phone: [facility] 03-10-2008 tetanus and diphther ia toxoids, adsorbed, preservative free, for adult use (2 Lf of tetanus toxoid and 2 Lf of diphtheria toxoid) Ty Narayanan MD Work Phone: [facility] Payers Date Payer Category Payer Self-pay [id number] 2022 Medicare (Managed Care) [id number] 2022 Medicare [id number] 2021 Medicare [id number] 2020 Medicare [employer] [id number] [facility] [phone] [address] [place] [address] [facility] [id number] 2013 Medicare [id number] Medicaid [id number] Medicare [id number] Private Health Insurance [id number] Unknown [id number] Unknown [id number] Unknown [id number] Unknown [id number] Social History Date Type Detail Facility Start: 03-06-2017 End: 11-07-2022 Tobacco smoking status IDIS Unknown if ever smoked [facility] Start: 1960 Sex Assigned At Not on file [facility] Phone: Start: 11-09-2024 Tobacco smoking status IDIS Never smoked tobacco [facility] Start: 06-21-2021 End: 04-06-2023 Alcohol intake Current non-drinker of alcohol (finding) [facility] Start: 06-11-2021 End: 01-16-2022 Exposure to SARS-CoV-2 (event) Not sure [facility] Start: 08-17-2018 Occasional [facility] Start: 08-17-2018 None [facility] Start: 08-17-2018 Alone [facility] Start: 09-20-2018 Non-smoker [facility] Start: 1960 Sex Assigned At Female W [facility] Start: 09-09-2022 End: 05-04-2024 History of Social function [facility] Start: 09-09-2022 End: 05-04-2024 Tobacco use panel [facility] Start: 02-22-2012 Adult Depression Screening Assessment [address] [facility] How often to you hav e a drink containing alcohol? Monthly or less [facility] How many standard drinks containing alcohol do you have on a typical day? 3 or [address] [facility] How often do you hav e 6 or more drinks on 1 occasion? Less than monthly [facility] How often do you hav e 6 or more drinks on 1 occasion? Monthly [facility] NEGATED: Highlighted row [facility] Medical Equipment Procedure Code Equipment Code Equipment Origin al Text Equipment Identifier Dates Mauri Bn Smpx P To bra Fd - [id number] Start: 05-11-2014 Mauri Bn Smpx P To bra Fd - [id number] Start: 07-25-2014 Mauri Bn Smpx P To bra Fd - [id number] Start: 07-25-2014 Mauri Bn Smpx P To bra Fd - [id number] Start: 07-25-2014 Baseplt Tib Trth ln 5 Unv Kn - [id number] Start: 07-25-2014 Restric Mauri Med Unv Insrt - [id number] Start: 07-25-2014 Comp Fem 5 Rt Kn Total Stab - [id number] Start: 07-25-2014 Stem Fem 100mm 1 4mm Prft Flut - [id number] Start: 07-25-2014 Stem Fem 104mm 1 5mm Prft Flut - [id number] Start: 07-25-2014 Ins Tib 5 9mm X3 Total Stab+ - [id number] Start: 07-25-2014 Nail 11mm 380mm Fem Im Unv Ss - [id number] Start: 05-11-2014 BALL TIPPED GUID E WIRE FDA Start: 04-08-2017 HEADLESS PIN FDA Start: 04-08-2017 TIATHLON UNIV TI B BASEPLATE FDA Start: 04-08-2017 TRIATHLON DEM DI STAL AUG-RIGHT FDA Start: 04-08-2017 TRIATHLON FEM DI STAL AUG-RIGHT FDA Start: 04-08-[address] AUGMENT FDA Start: 04-08-2017 TRIATHLON FEMORA L POST AUGMENT FDA Start: 04-08-2017 TRIATHLON FLUTED STEM FDA Start: 04-08-2017 TRIATHLON FLUTED STEM FDA Start: 04-08-2017 TRIATHLON STABIL FEMORAL COMP FDA Start: 04-08-2017 TRIATHLON STABIL TIBIAL INSERT FDA Start: 04-08-2017 CEMENT,BONE W/TOBRAMYCIN STRYK FDA Start: 04-08-2017 TRIATHLON TRITAN CONE AUGMENT FDA Start: 04-08-2017 TRIATHLON TRITAN FEM CONE AUG FDA Start: 04-08-2017 TRIATHLON X3 PATELLA FDA Star t: 04-08-2017 CEMENT,BONE W/TOBRAMYCIN STRYK FDA Start: 04-08-2017 CEMENT,BONE W/TOBRAMYCIN STRYK FDA Start: 04-08-2017 FWIRE,2 CUT 7202 FDA Start: 04-08-2017 FWIRE,2 CUT 7202 FDA Start: 04-08-2017 FWIRE,2 CUT 7202 FDA Start: 04-08-2017 HEADED PINS FDA Start: 04-08-2017 HEADED PINS FDA Start: 04-08-2017 BALL TIPPED GUID E WIRE FDA Start: 04-08-2017 HEADLESS PIN FDA Start: 04-08-2017 TIATHLON UNIV TI B BASEPLATE FDA Start: 04-08-2017 TRIATHLON DEM DI STAL AUG-RIGHT FDA Start: 04-08-2017 TRIATHLON FEM DI STAL AUG-RIGHT FDA Start: 04-08-[address] AUGMENT FDA Start: 04-08-2017 TRIATHLON FEMORA L POST AUGMENT FDA Start: 04-08-2017 TRIATHLON FLUTED STEM FDA Start: 04-08-2017 TRIATHLON FLUTED STEM FDA Start: 04-08-2017 TRIATHLON STABIL FEMORAL COMP FDA Start: 04-08-2017 TRIATHLON STABIL TIBIAL INSERT FDA Start: 04-08-2017 CEMENT,BONE W/TOBRAMYCIN STRYK FDA Start: 04-08-2017 TRIATHLON TRITAN CONE AUGMENT FDA Start: 04-08-2017 TRIATHLON TRITAN FEM CONE AUG FDA Start: 04-08-2017 TRIATHLON X3 PATELLA FDA Star t: 04-08-2017 CEMENT,BONE W/TOBRAMYCIN STRYK FDA Start: 04-08-2017 CEMENT,BONE W/TOBRAMYCIN STRYK FDA Start: 04-08-2017 FWIRE,2 CUT 7202 FDA Start: 04-08-2017 FWIRE,2 CUT 7202 FDA Start: 04-08-2017 FWIRE,2 CUT 7202 FDA Start: 04-08-2017 HEADED PINS FDA Start: 04-08-2017 HEADED PINS FDA Start: 04-08-2017 BALL TIPPED GUID E WIRE FDA Start: 04-08-2017 HEADLESS PIN FDA Start: 04-08-2017 TIATHLON UNIV TI B BASEPLATE FDA Start: 04-08-2017 TRIATHLON DEM DI STAL AUG-RIGHT FDA Start: 04-08-2017 TRIATHLON FEM DI STAL AUG-RIGHT FDA Start: 04-08-[address] AUGMENT FDA Start: 04-08-2017 TRIATHLON FEMORA L POST AUGMENT FDA Start: 04-08-2017 TRIATHLON FLUTED STEM FDA Start: 04-08-2017 TRIATHLON FLUTED STEM FDA Start: 04-08-2017 TRIATHLON STABIL FEMORAL COMP FDA Start: 04-08-2017 TRIATHLON STABIL TIBIAL INSERT FDA Start: 04-08-2017 CEMENT,BONE W/TOBRAMYCIN STRYK FDA Start: 04-08-2017 TRIATHLON TRITAN CONE AUGMENT FDA Start: 04-08-2017 TRIATHLON TRITAN FEM CONE AUG FDA Start: 04-08-2017 TRIATHLON X3 PATELLA FDA Star t: 04-08-2017 CEMENT,BONE W/TOBRAMYCIN STRYK FDA Start: 04-08-2017 CEMENT,BONE W/TOBRAMYCIN STRYK FDA Start: 04-08-2017 FWIRE,2 CUT 7202 FDA Start: 04-08-2017 FWIRE,2 CUT 7202 FDA Start: 04-08-2017 FWIRE,2 CUT 7202 FDA Start: 04-08-2017 HEADED PINS FDA Start: 04-08-2017 HEADED PINS FDA Start: 04-08-2017 BALL TIPPED GUID E WIRE FDA Start: 04-08-2017 HEADLESS PIN FDA Start: 04-08-2017 TIATHLON UNIV TI B BASEPLATE FDA Start: 04-08-2017 TRIATHLON DEM DI STAL AUG-RIGHT FDA Start: 04-08-2017 TRIATHLON FEM DI STAL AUG-RIGHT FDA Start: 04-08-[address] AUGMENT FDA Start: 04-08-2017 TRIATHLON FEMORA L POST AUGMENT FDA Start: 04-08-2017 TRIATHLON FLUTED STEM FDA Start: 04-08-2017 TRIATHLON FLUTED STEM FDA Start: 04-08-2017 TRIATHLON STABIL FEMORAL COMP FDA Start: 04-08-2017 TRIATHLON STABIL TIBIAL INSERT FDA Start: 04-08-2017 CEMENT,BONE W/TOBRAMYCIN STRYK FDA Start: 04-08-2017 TRIATHLON TRITAN CONE AUGMENT FDA Start: 04-08-2017 TRIATHLON TRITAN FEM CONE AUG FDA Start: 04-08-2017 TRIATHLON X3 PATELLA FDA Star t: 04-08-2017 CEMENT,BONE W/TOBRAMYCIN STRYK FDA Start: 04-08-2017 CEMENT,BONE W/TOBRAMYCIN STRYK FDA Start: 04-08-2017 FWIRE,2 CUT 7202 FDA Start: 04-08-2017 FWIRE,2 CUT 7202 FDA Start: 04-08-2017 FWIRE,2 CUT 7202 FDA Start: 04-08-2017 HEADED PINS FDA Start: 04-08-2017 HEADED PINS FDA Start: 04-08-2017 Goals Date Patient Goal Desired Activity /State Functional Status Date Assessment Result Facility 10-18-2014 Are you deaf, or do you have serious difficulty hearing No 10/18/2014 3:59 PM PRANAVT Maria A Wilson MA No [facility] 10-18-2014 Are you blind, or do you have serious difficulty seeing, even when wearing glasses No 10/18/2014 3:59 PM PRANAVT Maria A Wilson MA No [facility] 10-18-2014 Do you have serious difficulty walking or climbing stairs No 10/18/2014 3:59 PM Maria A Almeida MA No [facility] 10-18-2014 Do you have difficul ty dressing or bathing No 10/18/2014 3:59 PM Maria A Almeida MA No [facility] 10-18-2014 Because of a physica l, mental, or emotional condition, do you have difficulty doing errands alone such as visiting a physician's office or shopping No 10/18/2014 3:59 PM EDT Maria A Wilson MA No [facility] Mental Status Date Assessment Result Facility 11-14-2022 Cognitive function Voice/Name [facility] Work Phone: 10-18-2014 Because of a physica l, mental, or emotional condition, do you have serious difficulty concentrating, remembering, or making decisions No 10/18/2014 3:59 PM EDT Maria A Wilson MA No [facility] Clinical Notes 04-28-2017 to 11-09-2024 Note Date & Type Note Facility 11-09-2024 Discharge summary [facility] 11-09-2024 Discharge summary Note Date/Time November 09, 2024 3:13pm [facility] Medical Records Department [address] [place] [address] Emergency Department Summary 11/09/24 MR#: [id number] Acct: [id number] Name: MEGHA CIFUENTES Rep #:[id number] : 1960 63 From: Philomena Zhu MD PCP: Dr. Ty Narayanan MD Status:RE G ER Location: ED HPI History of Present Illness Chief Complaint: Cellulitis Narrative Narrative: Patient is a 63-year-old female presenting to the emergency department for a wound on her right lower leg. Patient has a past medical history of leg edema, venous insufficiency and morbid obesity. Patient states that she got home from work who was sitting on the porch when she felt something crawling up her leg. She looked down and saw maggot. She states it was coming from her lower leg. Shethen saw a wound that she never noticed before. Denies fever, chills, nausea, vomiting. Denies chest pain or SOB. States that she has been working and ambulating fine. States she feels well. [facility] Medical History Wears dentures Alcohol use Arthritis Restless legs Injury of head and neck Non-smoker CPAP (continuous positive airway pressure) dependence Sleep apnea History of edema History of pain when walking History of echocardiogram PERIPROSTETIC KNEE INFECTION Home Medications ?Medication ?Instructions ?Recorded ?Last Taken ?Type fluoxetine 20 mg capsule 20 mg PO DAILY mental health 11/22/16 05/25/17 History bupropion HCl 150 mg 24 hr tablet, 150 mg PO DAILY DEP RESSION 01/12/17 05/25/17 History extended release temazepam 15 mg capsule 15 mg PO QHS PRN PRN Sleep 0 03/27/17 05/25/17 History levofloxacin 500 mg tablet 500 mg PO Q24H 11/07/22 Unk nown History naproxen 500 mg tablet mg 11/14/22 11/14/22 06:00 H istory cephalexin 500 mg capsule 500 mg PO Q6 5 days #24 CAPS ULES 11/09/24 Unknown Rx Allergy/AdvReac Type Severity Reaction Status Date / Time No Known Allergies Allergy Verified 11/14/22 07:06 Family History Father Myocardial infarction Mother Myocardial infarction Surgical History History of hernia surgery History of History of arthroplasty of right ankle Status post bilateral hip replacements Status post bilateral knee replacements Social History Smoking Status: Never smoker alcohol intake: never ROS ROS ED ROS Narrative see HPI EXAM Physical Exam Narrative Exam Narrative: Vital signs: Reviewed General: Alert and orientedx3. No acute distress. Obese. HEENT: Head is normocephalic and atraumatic, sinuses nontender, pupils equal round and reactive. Nares are patent. Oropharynx and throat exams normal. Neck: Supple without lymphadenopathy nontender Cardiovascular: Regular rate and rhythm, no murmurs. No rubs or gallops. Normal S1 and S2 Respiratory: Clear to auscultation bilaterally. No wheezes, rales, rhonchi Abdominal: Soft and nontender. Normal bowel sounds. No guarding or rebound. Nonsurgical abdomen Extremities: Leg edema bilaterally that is symmetric. Nontender. There is a skinfold to the right medial lower leg with overlying skin disruption. Very mild erythema surrounding this. No fluctuance or warmth. No tenderness. No bruising. Normal range of motion. Normal sensation. Skin: No rash or redness. Neurological: Cranial nerves II through XII are grossly intact. Normal strengthand sensation. Normal cerebellar function The rest of the physical exam is unremarkable Const Vital Signs: 11/09/24 12:33 Temperature 98.3 F Temperature Source Oral Pulse Rate 92 Respiratory Rate 17 Blood Pressure 167/97 H Blood Pressure Mean 120 Pulse Ox 97 Oxygen Delivery Method Room Air MDM MDM MDM Narrative Medical decision making narrative: Patient is a 63-year-old female presenting to the emergency department for a wound check. Patient was seen and examined. Vitals are stable. Patient resting bed comfortably no acute distress. Before I evaluated the patient and the nursing staff did clean the wound extensively. Reportedly there were maggots in the wound. The skin fold has no overt signs of infection. The swelling of her legs is bilateral and is chronic in nature. There is no tenderness to palpation of the legs. No signs of DVT. Likely chronic lymphedema. She has no shortness of breath or chest pain. She isable to ambulate at home she states. W CBC with no leukocytosis and a normal hemoglobin. BMP with no significant abnormalities. Patient was given a dose ofKeflex here. She was given a prescription for Keflex for home. She was given wound care referral follow-up as well. Patient discharged from the Emergency Department. I do not feel that the patient's evaluation reveals any acute reasonfor admission at this time. I instructed them to either follow-up with their primary care physician or promptly return to the Emergency Department for reevaluation should symptoms worsen or new symptoms develop. I explained what symptoms would indicate the need to return to the emergency department. Shared decision making was used. The patient voiced understanding of the treatment planand is agreeable with it. Clinical Impression: Leg wound History & Record Review Discussion w/independent historian: Patient Lab Data Attestation: I reviewed the patient's lab results. Labs: Laboratory Results - last 24 hr 11/09/24 12:58 WBC 4.0 L RBC 4.10 L Hgb 13.0 Hct 39.9 MCV 97.3 MCH 31.7 MCHC 32.6 RDW Std Deviation 50.2 H RDW Coeff of Viktoria 14.0 Plt Count 183 MPV 10.3 Immature Gran % (Auto) 0.500 Neut % (Auto) 78.3 H Lymph % (Auto) 10.9 L [place] % (Auto) 8.4 Eos % (Auto) 1.7 Baso % (Auto) 0.2 Absolute Neuts (auto) 3.2 Absolute Lymphs (auto) 0.44 L Nucleated RBC % 0 Sodium 137 Potassium 4.4 Chloride 102 Carbon Dioxide 24.6 Anion Gap 10 BUN 8 Creatinine 0.67 L Estim Creat Clear Calc 152.54 Est GFR (MDRD) Non-Af 99 BUN/Creatinine Ratio 11.6 Glucose 99 Calcium 8.6 Discharge Plan Triage Chief Complaint: Cellulitis ED Provider: Philomena Zhu Dx/Rx/DC Orders Clinical Impression: Leg wound, right, Morbid obesity, Leg swelling Instructions: Cellulitis Dc, ED Lymphedema Prescriptions: New cephalexin 500 mg capsule 500 mg PO Q6 5 Days Qty: 24 0RF No Action fluoxetine 20 MG capsule 20 mg PO DAILY bupropion HCl 150 MG tablet extended release 24 hr 150 mg PO DAILY temazepam 15 MG capsule 15 mg PO QHS PRN PRN (Reason: Sleep) levofloxacin 500 mg tablet 500 mg PO Q24H Patient Comments: TAKE ONE TABLET BY MOUTH DAILY AT 9AM (VIAL) naproxen 500 mg tablet Patient Comments: TAKE ONE TABLET BY MOUTH TWICE DAILY WITH FOOD NEEDED FOR PAIN & AND FOR INFLAMMATION (VIAL) Primary Care Provider: Ty Narayanan Referrals: Wound Health [Outside] - 1 Day Ty Narayanan MD [Primary Care Provider] - 2 Days Activity Restrictions/Additional Instructions: Take the antibiotic 4 times a day for 5 days as prescribed. Please follow-up with the wound care center soon as possible. Your evaluation in the Emergency Department did not reveal any acute reason for admission. However, I want to emphasize that you may be early in the course of a disease process or illness even if it is not present. For this reason you should follow-up within 24 hours for reevaluation with either your primary care physician or if necessary back here in the Emergency Department. You should return to the Emergency Department immediately if your symptoms worsen or new symptoms develop. Print Language: Serbian Disposition Disposition: Home, Self Care What to do if you have Problems For any increased pain, shortness of breath, bleeding, nausea or vomiting, chestpain, or any unexpected problems, contact your Primary Care Provider. Call [facility] ([phone]) or report to the closest Emergency Room. Call 911 if necessary. 11/09/24 [id number] <Electronically signed by Philomena Zhu MD> Cosigner Signature (if applicable): CC: Dr. Ty Narayanan MD ~ Signed [facility] Work Phone: [phone]) 210-660008-15-2025 Telephone encounter Note* Telephone Encounter - Lizzy Subramanian RN - 11/04/2024 1:31 PM EDT Patient notified of provider's instructions. Patient verbalizes understanding. Lizzy Subramanian RN [facility]08-15-2025 Miscellaneous Notes* Telephone Encounter - Lizzy Subramanian RN - 11/04/2024 1:31 PM EDT Patient notified of provider's instructions. Patient verbalizes understanding. Lizzy Subramanian RN * Telephone Encounter - Raghu Nuñez APRN.CNP - 11/04/2024 1:24 PM EDT Potentially could be a blood clot. Needs evaluated. Can go to the ER if insurance is an issue. Raghu Nuñez APRN.SHAISTA * Telephone Encounter - Lizzy Subramanian RN - 11/04/2024 12:56 PM EDT Patient calls and states that her right leg is swollen and it is seeping clear fluid. Patient states that she had talked to [facility] about this and was told that she needed to contact PCP.Advised patient that she needs to be seen in office for this. Patient states that she does not think provider take insurance. Advise patient that she needs to go to [facility] to have this evaluated. Patient states that she will look for an express care that takes her insurance. Patient states that she thinks she will wait it out a bit. Advised patient that she really needs to have it looked at. Lizzy Subramanian RN documented [facility] Telephone encounter Note * Telephone Encounter - Raghu Nuñez APRN.CNP - 11/04/2024 1:24 PM EDT Potentially could be a blood clot. Needs evaluated. Can go to the ER if insurance is an issue. Raghu Nuñez APRN.CNP [facility] Work Phone: [phone]) 202-970708-15-2025 Telephone encounter Note* Telephone Encounter - Lizzy Subramanian RN - 11/04/2024 12:56 PM EDT Patient calls and states that her right leg is swollen and it is seeping clear fluid. Patient states that she had talked to [facility] about this and was told that she needed to contact PCP.Advised patient that she needs to be seen in office for this. Patient states that she does not think provider take insurance. Advise patient that she needs to go to [facility] to have this evaluated. Patient states that she will look for an express care that takes her insurance. Patient states that she thinks she will wait it out a bit. Advised patient that she really needs to have it looked at. Lizzy Subramanian RN [facility]02-12-2025 Instructions* Patient Instructions* Bronwyn Solo APRN.CNP - 05/04/2024 3:30 PM EST Get fasting labs completed Start Doxycycline, take with food. Keep skin clean and dry. Worsening symptoms go to ER (increased redness, swelling,fever, or chills) Start back on Prozac 10 mg daily, may increase to 20 mg if tolerating medication well in 2-3 weeks. Start back on Vitamin D Due for Pap, consult placed for RECOVERY ANALYST Cologuard stool kit will be mailed Follow up in 1 month [facility] History of Present illness Narrative* Bronwyn Solo APRN.CNP - 05/04/2024 2:40 PM EST Images from the original note were not included. Megha Cifuentes is a 63 year old female here for a Medicare wellness visit. Medicare Health Risk Assessment General Health Very good Exercise: Minutes/Day 0 min Exercise: Days/Week 0 days Alcohol: Daily Use daily Alcohol: Drinks/Day 3 or 4 Alcohol: 6 or more drinks Monthly Feel off balance No Concerns: Teeth/Dentures No Concerns: Sexual function No Troubled by feelings Stressed; Lonely Frequency: Eating healthy diet Not at all ADLs requiring help None of the above Safety precautions in home/vehicle Yes Smoke, vape, chews tobacco No Difficulty hearing No Difficulty seeing No Current Providers Specialists: I have reviewed specialist-related care of the patient in the medical record. Medical/Family history review Reviewed and updated problem list, medical/surgical/family/social history, medications, and allergies. Opioid use review Opioid Medications (last 90 days) No data to display Anxiety/Depression screening PHQ-2 Score: 1 (Lower risk for depression) Recommendation: no further intervention at this time Cognitive screening Mini Cog Score: 5 Cognitive screening reviewed and No further action needed (score 3-5). Functional Observation Was the patient's Timed Up & Go test unsteady or >= 12 seconds? No Advance Care Planning Patient did not wish or was not able to name a surrogate decision maker or provide an advance care plan Measurements LMP 06/04/2018 (Approximate) SpO2 96% Vision Screening: Follows with optometry/ophthalmology Assessment/Plan Medicare annual wellness visit, subsequent (Z00.00) - Counseled on healthy diet and regular exercise - Fall avoidance information provided - Personalized prevention plan provided - Discussed need for and benefit of weight loss. No weight on file for this encounter. This is a 63 year old female who presents today with: Patient presents with: Medicare Wellness Exam HISTORY OF PRESENT ILLNESS: Megha Cifuentes is a 63 year old female. Patient presents with: Medicare Wellness Exam Here in the office for extensive exam, Past due for labs. Never completed in 2023. Depression: Was taking Wellbutrin and Prozac, no longer taking, would like to go back on them. Tearful, feels like she is limited due to hip/knee replacement. Denies HI/SI. She stopped taking her medications because she is tired of taking pills. She has gained weight over the last year and doesn't like herself. Left leg lesion, refers it is red, went to [place] and think she may have gotten bit, seeping at times. No fever or chills Vitamin D: Was taking Vitamin D3 50,000 international unit(s) weekly, has been out of medication History of EDDIE, not currently taking iron. On going fatigue. OH: Using CPAP, taking Restoril 15 mg at bedtime for sleep. Vaccines: Due Dtap now will schedule at later time, denies wanting the covid vaccine today. Colonoscopy: Fecal occult in 2015. Would like to do cologuard Mammogram: last mammogram 2016; Due now. PAST MEDICAL HISTORY: PAST MEDICAL HISTORY Diagnosis Date Abdominal pain, other specified site Depression Diarrhea Fracture, fibula 04/21/2015 mildly displaced spiral right fibula GERD (gastroesophageal reflux disease) Hip arthritis 01/08/2011 Lumbar degenerative disc disease 01/06/2012 Major depressive disorder, recurrent episode, moderate (HCC) 01/18/2019 Tennis elbow Venous insufficiency of both lower extremities 11/12/2016 Venous stasis dermatitis of right lower extremity 11/12/2016 PAST SURGICAL HISTORY Procedure Laterality Date ARTHRP ACETBLR/PROX FEM PROSTC AGRFT/ALGRFT Right 06/28/2012 ARTHRP ACETBLR/PROX FEM PROSTC AGRFT/ALGRFT Left 08/28/2012 ARTHRP KNE CONDYLE&PLATU MEDIAL&LAT COMPARTMENTS Bilateral 08/2013 DELIVERY ONLY x2 HYSTEROSCOPY BX W/WO D&C 11/14/2022 LIG/TRNSXJ FLP TUBE ABDL/VAG APPR UNI/BI Tubal ligation MAMM DIAG UNI 02/20/2009 PAST SURGICAL HISTORY OF 07/2007 hernia repair PICC LINE INSERT/CONSULT 05/15/2014 S $ KNEE REVISION Right 07/2014 ALLERGIES Patient has no known allergies. MEDICATIONS Current Outpatient Medications Medication Sig ibuprofen (MOTRIN) 800 mg tablet Take 1 tablet by mouth every 8 hours as needed for pain. Take withfood. Do not take the same day as you take naproxen temazepam (RESTORIL) 15 mg Take 1 capsule by mouth at bedtime as needed for up to 180 days. hydrocortisone (ANUSOL-HC) 2.5 % rectal cream by RECTAL route two times a day. levoFLOXacin (LEVAQUIN) 500 mg tablet Take 500 mg by mouth once daily. megestrol (MEGACE) 20 mg tablet Take 1 tablet (20 mg) by mouth once daily. (Patient not taking: Reported on 05/04/2024) FLUoxetine (PROZAC) 20 mg capsule Take 1 capsule by mouth once daily. buPROPion XL (WELLBUTRIN XL) 150 mg 24 hr tablet Take 1 tablet by mouth once daily. naproxen (NAPROSYN) 500 mg tablet TAKE ONE TABLET BY MOUTH TWICE DAILY WITH FOOD NEEDED FOR PAINAND INFLAMMATION (Patient not taking: Reported on 05/04/2024) cholecalciferol, Vitamin D3, (VITAMIN D3) 1,250 mcg (50,000 unit) cap capsule Take 1 capsule by mouth one time a week for 4 doses. buPROPion XL (WELLBUTRIN XL) 300 mg 24 hr tablet Take 1 tablet by mouth once daily. COMPOUNDED PRESCRIPTION [facility] E0651/Segmental Compressor [facility] E067/ Leg Appliance Dx: Lymphedema I89.0 Right Lower Extremity Lifetime Usage (Patient not taking: Reported on 04/06/2023) No current facility-administered medications for this visit. FAMILY HISTORY Problem Relation Age of Onset Coronary Artery Disease Father age 67 from [place] Thyroid Mother Social History Tobacco Use Smoking status: Never Smokeless tobacco: Never Substance Use Topics Alcohol use: No Drug use: No REVIEW OF SYSTEMS GENERAL: + Fatigue HEENT: Negative for frequent or significant headaches, No changes in hearing or vision. NECK: Negative for lumps, goiter, pain and significant neck swelling RESPIRATORY: Negative for cough, hemoptysis, wheezing, dyspnea or shortness of breath CARDIOVASCULAR: Negative for chest pain, leg swelling, orthopnea, or palpitations GI: No nausea, vomiting, or diarrhea/constipation. No hematochezia/melena. No heartburn or reflux symptoms. : No history of dysuria, frequency or incontinence MUSCULOSKELETAL: Negative for joint pain or swelling. SKIN: + Skin Lesion ENDOCRINE: Negative for cold or heat intolerance, polyuria, polydipsia and goiter NEURO: No history of headaches, syncope, paralysis, seizures or tremors MOOD: + Anxiety/Sadness EXAM: BP 130/96 Pulse 72 Resp 18 Ht 171.5 cm (5' 7.52) Wt (!) 162.6 kg (358 lb 7.5 oz) LMP 06/04/2018 (Approximate) SpO2 96% BMI 55.28 kg/m PHYSICAL EXAM: General Appearance: Well appearing, alert, in no acute distress, well-hydrated, well nourished. andMorbidly obese. Skin: Erythematic skin lesion noted on the back of the right leg, warm to touch, mild seeping noted. No induration. Head: Normocephalic, no masses, lesions, tenderness or abnormalities. Eyes: Anicteric sclera. Extraocular movements are intact. Lungs: Lungs clear to auscultation. No wheezing, rhonchi, rales. Heart: RRR without murmur, gallop, or rubs. No ectopy. Extremities: No deformities, edema, skin discoloration, clubbing or cyanosis. Good capillary refill. Peripheral Pulses: Normal, Capillary refill <2secs, strong peripheral pulses, Pulses palpable. Neurologic: Gait normal. Reflexes normal and symmetric. Sensation grossly intact.. Mood: Pleasant, engaged, good eye contact, tearful at times. ASSESSMENT/PLAN: 1. Medicare annual wellness visit, subsequent - ICD9: V70.0, ICD10: Z00.00 (primary diagnosis) - Counseled on healthy diet and regular exercise - Discussed need and benefit for weight loss. BMI 55.28 kg/(m^2) - Colorectal cancer screening - ordered Cologuard - Breast cancer screening - ordered mammogram - Counseled on alcohol intake and health risks - Follow up for annual exam in one year - COMPREHENSIVE METABOLIC PANEL 2. Cellulitis of right lower extremity - ICD9: 682.6, ICD10: L03.115 - Begin treatment with Doxycycline - No lymphangetic streaking, this was defined for patient to watch for and to seek medical care immediately if appears - DOXYCYCLINE HYCLATE 100 MG TABLET 3. Fatigue, unspecified type - ICD9: 780.79, ICD10: R53.83 - VITAMIN D 25 HYDROXY - HEMOGLOBIN A1C - VITAMIN B12 - COMPLETE BLOOD COUNT AND DIFFERENTIAL - IRON AND TIBC - FERRITIN - THYROID STIMULATING HORMONE 4. Iron deficiency anemia due to chronic blood loss - ICD9: 280.0, ICD10: D50.0 - Same plan as #3. 5. Situational stress - ICD9: V62.89, ICD10: F43.9 - Start back on Prozac 10 mg daily, may increase back up to 20 mg if tolerating medication in 2-3 weeks. - Follow up in 1 month. - FLUOXETINE 10 MG CAPSULE 6. Major depressive disorder, recurrent episode, moderate (HCC) - ICD9: 296.32, ICD10: F33.1 - Same plan as #5. 7. Hyperlipidemia LDL goal <100 - ICD9: 272.4, ICD10: E78.5 - Control undetermined, due for labs - Counseled on healthy diet and regular exercise - Discussed need for and benefit of weight loss. BMI 55.28 kg/(m^2) - LIPID PANEL BASIC 8. Insomnia, unspecified type - ICD9: 780.52, ICD10: G47.00 - Stable, continue to take current medication 9. OH on CPAP - ICD9: 327.23, ICD10: G47.33 - Continue with CPAP 10. Vitamin D deficiency - ICD9: 268.9, ICD10: E55.9 - CHOLECALCIFEROL (VITAMIN D3) 1,250 MCG (50,000 UNIT) CAPSULE 11. Degeneration of intervertebral disc of lumbar region with discogenic back pain - ICD9: 722.52, ICD10: M51.360 - Refill provided. - IBUPROFEN 800 MG TABLET 12. Encounter for screening mammogram for breast cancer - ICD9: V76.12, ICD10: Z12.31 - LEONEI SCREENING W STEVEN 13. Screening for colon cancer - ICD9: V76.51, ICD10: Z12.11 - COLOGUARD 14. Women's annual routine gynecological examination - ICD9: V72.31, ICD10: Z01.419 - CONSULT TO GYNECOLOGY 15. Encounter for screening examination for other mental health and behavioral disorders - ICD9: V79.8, ICD10: Z13.39 - ANXIETY SCREENING Follow-up in 1 month or sooner pending test results. Discussed treatment plan and patient voices understanding. Patient's questions answered appropriately. Medications and potential side effects were discussed and patient voices understanding. Bronwyn Solo APRN.SUPERVISOR [employer] This note was partially generated using [employer] voice recognition system. Note was reviewed for accuracy. There may be minor misspellings or grammar miscues with [employer] voice recognition. documented in this encounterMer[facility] NoteHNO ID: [id number] Author: BRONWYN SOLO APRN.CNP Service: ? Author Type: Nurse Practitioner Type: Progress Notes Filed: 05/04/2024 16:54 Note Text: Megha Cifuentes is a 63 year old female here for a Medicare wellness visit. Medicare Health Risk Assessment General Health Very good Exercise: Minutes/Day 0 min Exercise: Days/Week 0 days Alcohol: Daily Use daily Alcohol: Drinks/Day 3 or 4 Alcohol: 6 or more drinks Monthly Feel off balance No Concerns: Teeth/Dentures No Concerns: Sexual function No Troubled by feelings Stressed; Lonely Frequency: Eating healthy diet Not at all ADLs requiring help None of the above Safety precautions in home/vehicle Yes Smoke, vape, chews tobacco No Difficulty hearing No Difficulty seeing No Current Providers Specialists: I have reviewed specialist-related care of the patient in the medical record. Medical/Family history review Reviewed and updated problem list, medical/surgical/family/social history, medications, and allergies. Opioid use review Opioid Medications (last 90 days) No data to display Anxiety/Depression screening PHQ-2 Score: 1 (Lower risk for depression) Recommendation: no further intervention at this time Cognitive screening Mini Cog Score: 5 Cognitive screening reviewed and No further action needed (score 3-5). Functional Observation Was the patient's Timed Up AND Go test unsteady or >= 12 seconds? No Advance Care Planning Patient did not wish or was not able to name a surrogate decision maker or provide an advance care plan Measurements LMP 06/04/2018 (Approximate) SpO2 96% Vision Screening: Follows with optometry/ophthalmology Assessment/Plan Medicare annual wellness visit, subsequent (Z00.00) - Counseled on healthy diet and regular exercise - Fall avoidance information provided - Personalized prevention plan provided - Discussed need for and benefit of weight loss. No weight on file for this encounter. This is a 63 year old female who presents today with: Patient presents with: Medicare Wellness Exam HISTORY OF PRESENT ILLNESS: Megha Cifuentes is a 63 year old female. Patient presents with: Medicare Wellness Exam Here in the office for extensive exam, Past due for labs. Never completed in 2023. Depression: Was taking Wellbutrin and Prozac, no longer taking, would like to go back on them. Tearful, feels like she is limited due to hip/knee replacement. Denies HI/SI. She stopped taking her medications because she is tired of taking pills. She has gained weight over the last year and doesn't like herself. Left leg lesion, refers it is red, went to [place] and think she may have gotten bit, seeping at times. No fever or chills Vitamin D: Was taking Vitamin D3 50,000 international unit(s) weekly, has been out of medication History of EDDIE, not currently taking iron. On going fatigue. OH: Using CPAP, taking Restoril 15 mg at bedtime for sleep. Vaccines: Due Dtap now will schedule at later time, denies wanting the covid vaccine today. Colonoscopy: Fecal occult in 2015. Would like to do cologuard Mammogram: last mammogram 2016; Due now. PAST MEDICAL HISTORY: PAST MEDICAL HISTORY Diagnosis Date Abdominal pain, other specified site Depression Diarrhea Fracture, fibula 04/21/2015 mildly displaced spiral right fibula GERD (gastroesophageal reflux disease) Hip arthritis 01/08/2011 Lumbar degenerative disc disease 01/06/2012 Major depressive disorder, recurrent episode, moderate (HCC) 01/18/2019 Tennis elbow Venous insufficiency of both lower extremities 11/12/2016 Venous stasis dermatitis of right lower extremity 11/12/2016 PAST SURGICAL HISTORY Procedure Laterality Date ARTHRP ACETBLR/PROX FEM PROSTC AGRFT/ALGRFT Right 06/28/2012 ARTHRP ACETBLR/PROX FEM PROSTC AGRFT/ALGRFT Left 08/28/2012 ARTHRP KNE CONDYLEANDPLATU MEDIALANDLAT COMPARTMENTS Bilateral 08/2013 DELIVERY ONLY x2 HYSTEROSCOPY BX W/WO DANDC 11/14/2022 LIG/TRNSXJ FLP TUBE ABDL/VAG APPR UNI/BI Tubal ligation MAMM DIAG UNI 02/20/2009 PAST SURGICAL HISTORY OF 07/2007 hernia repair PICC LINE INSERT/CONSULT 05/15/2014 S $ KNEE REVISION Right 07/2014 ALLERGIES Patient has no known allergies. MEDICATIONS Current Outpatient Medications Medication Sig ibuprofen (MOTRIN) 800 mg tablet Take 1 tablet by mouth every 8 hours as needed for pain. Take with food. Do not take the same day as you take naproxen temazepam (RESTORIL) 15 mg Take 1 capsule by mouth at bedtime as needed for up to 180 days. hydrocortisone (ANUSOL-HC) 2.5 % rectal cream by RECTAL route two times a day. levoFLOXacin (LEVAQUIN) 500 mg tablet Take 500 mg by mouth once daily. megestrol (MEGACE) 20 mg tablet Take 1 tablet (20 mg) by mouth once daily. (Patient not taking: Reported on 05/04/2024) FLUoxetine (PROZAC) 20 mg capsule Take 1 capsule by mouth once daily. buPROPion XL (WELLBUTRIN XL) 150 mg 24 hr tablet Take (more content not included)...[facility]01-29-2025 Telephone encounter Note* Telephone Encounter - Bronwyn Solo APRN.CNP - 04/20/2024 6:31 PM EST The following approved medication requests have been transmitted electronically. Requested Prescriptions Signed Prescriptions Disp Refills ibuprofen (MOTRIN) 800 mg tablet 90 tablet 3 Sig: Take 1 tablet by mouth every 8 hours as needed for pain. Take with food. Do not take the same day as you take naproxen Authorizing Provider: BRONWYN SOLO temazepam (RESTORIL) 15 mg 90 capsule 1 Sig: Take 1 capsule by mouth at bedtime as needed for up to 180 days. Authorizing Provider: BRONWYN SOLO APRN.CNP PDMP website checked and validated. All prescriptions have been APPROPRIATELY filled. No suspiciousactivity was identified. 04/20/2024 by Bronwyn Solo APRN.CNP [facility]01-29-2025 Miscellaneous Notes* Telephone Encounter - Bronwyn Solo APRN.SHAISTA - 04/20/2024 6:31 PM EST The following approved medication requests have been transmitted electronically. Requested Prescriptions Signed Prescriptions Disp Refills ibuprofen (MOTRIN) 800 mg tablet 90 tablet 3 Sig: Take 1 tablet by mouth every 8 hours as needed for pain. Take with food. Do not take the same day as you take naproxen Authorizing Provider: BRONWYN SOLO temazepam (RESTORIL) 15 mg 90 capsule 1 Sig: Take 1 capsule by mouth at bedtime as needed for up to 180 days. Authorizing Provider: BRONWYN SOLO APRN.CNP [facility] website checked and validated. All prescriptions have been APPROPRIATELY filled. No suspiciousactivity was identified. 04/20/2024 by Bronwyn Solo APRN.SHAISTA * Telephone Encounter - Amalia Yadav LPN - 04/20/2024 10:18 AM EST Patient is needing an appointment with Bronwyn Perez. [place] please assist in making appointment with Bronwyn after 11am time Prescription Refill Information The patient has been identified by name and date of : Yes Caregiver verified no other encounters exist for this prescription request: Yes Caregiver confirmed with patient/requestor that no other refills are due, in the near future, with this provider at this time: Yes The last office visit in the department: 04/06/23 Does the patient have a future office visit with this provider/department: No Requested Prescriptions Pending Prescriptions Disp Refills ibuprofen (MOTRIN) 800 mg tablet 90 tablet 3 Sig: Take 1 tablet by mouth every 8 hours as needed for pain. Take with food. Do not take the same day as you take naproxen temazepam (RESTORIL) 15 mg 90 capsule 1 Sig: Take 1 capsule by mouth at bedtime as needed for up to 90 days. Amalia Yadav LPN April 20, 2024 10:19 AM documented in this encounterMer[facility]01[facility]29[facility]25 Telephone encounter Note * Telephone Encounter - Amalia Yadav LPN - 04/20/2024 10:18 AM EST Patient is needing an appointment with Bronwyn Perez. [place] please assist in making appointment with Bronwyn after 11am time Prescription Refill Information The patient has been identified by name and date of : Yes Caregiver verified no other encounters exist for this prescription request: Yes Caregiver confirmed with patient/requestor that no other refills are due, in the near future, with this provider at this time: Yes The last office visit in the department: 04/06/23 Does the patient have a future office visit with this provider/department: No Requested Prescriptions Pending Prescriptions Disp Refills ibuprofen (MOTRIN) 800 mg tablet 90 tablet 3 Sig: Take 1 tablet by mouth every 8 hours as needed for pain. Take with food. Do not take the same day as you take naproxen temazepam (RESTORIL) 15 mg 90 capsule 1 Sig: Take 1 capsule by mouth at bedtime as needed for up to 90 days. Amalia Yadav LPN April 20, 2024 10:[address] [facility]11-07-2024 Telephone encounter Note* Telephone Encounter - Ty Narayanan MD - 01/28/2024 2:14 PM EST OK to refill as ordered Ty Narayanan MD [facility]11-07-2024 Miscellaneous Notes* Telephone Encounter - Ty Narayanan MD - 01/28/2024 2:14 PM EST OK to refill as ordered Ty Narayanan MD * Telephone Encounter - Yamileth Trevino RN - 01/28/2024 1:35 PM EST The patient has been identified by name and date of : Yes Caregiver verified no other encounters exist for this prescription request: Yes Caregiver confirmed with patient/requestor that no other refills are due, in the near future, with this provider at this time: Yes The last office visit in the department: 04/06/2023 Does the patient have a future office visit with this provider/department: No Visit date not found Requested Prescriptions Pending Prescriptions Disp Refills temazepam (RESTORIL) 15 mg 90 capsule 0 Sig: Take 1 capsule by mouth at bedtime as needed for up to 90 days. Yamileth Trevino RN January 28, 2024 1:35 PM documented in this encounterMer[facility]11[facility]24 Telephone encounter Note * Telephone Encounter - Yamileth Trevino RN - 01/28/2024 1:35 PM EST The patient has been identified by name and date of : Yes Caregiver verified no other encounters exist for this prescription request: Yes Caregiver confirmed with patient/requestor that no other refills are due, in the near future, with this provider at this time: Yes The last office visit in the department: 04/06/2023 Does the patient have a future office visit with this provider/department: No Visit date not found Requested Prescriptions Pending Prescriptions Disp Refills temazepam (RESTORIL) 15 mg 90 capsule 0 Sig: Take 1 capsule by mouth at bedtime as needed for up to 90 days. Yamileth Trevino RN January 28, 2024 1:[address] [facility]10-07-2024 Telephone encounter Note* Telephone Encounter - Amalia Yadav LPN - 12/28/2023 4:36 PM EDT Prescription Refill Information The patient has been identified by name and date of : Yes Caregiver verified no other encounters exist for this prescription request: Yes Caregiver confirmed with patient/requestor that no other refills are due, in the near future, with this provider at this time: Yes The last office visit in the department: 04/06/23 Does the patient have a future office visit with this provider/department: No Requested Prescriptions Pending Prescriptions Disp Refills ibuprofen (MOTRIN) 800 mg tablet 90 tablet 3 Sig: Take 1 tablet by mouth every 8 hours as needed for pain. Take with food. Do not take the same day as you take naproxen Amalia Yadav LPN December 28, 2023 4:[address] [facility]10-07-2024 Miscellaneous Notes* Telephone Encounter - Amalia Yadav LPN - 12/28/2023 4:36 PM EDT Prescription Refill Information The patient has been identified by name and date of : Yes Caregiver verified no other encounters exist for this prescription request: Yes Caregiver confirmed with patient/requestor that no other refills are due, in the near future, with this provider at this time: Yes The last office visit in the department: 04/06/23 Does the patient have a future office visit with this provider/department: No Requested Prescriptions Pending Prescriptions Disp Refills ibuprofen (MOTRIN) 800 mg tablet 90 tablet 3 Sig: Take 1 tablet by mouth every 8 hours as needed for pain. Take with food. Do not take the same day as you take naproxen Amalia Yadav LPN December 28, 2023 4:37 PM documented in this encounterMer[facility]09[facility]24 Telephone encounter Note * Telephone Encounter - Tori Salazar RN - 12/16/2023 4:40 PM EDT Patient notified. Agreeable to scheduling EMB with DM if her insurance approves. Spoke with SEEMA Barrera regarding the referral placed on 04/02/23. She would like to check on this further since her insurance is OON. Patient aware. She is having phone issues. Ok to leave a detailed message. Tori Salazar RN [facility]09-25-2024 Miscellaneous Notes* Telephone Encounter - Tori Salazar RN - 12/16/2023 4:40 PM EDT Patient notified. Agreeable to scheduling EMB with DM if her insurance approves. Spoke with SEEMA Barrera regarding the referral placed on 04/02/23. She would like to check on this further since her insurance is OON. Patient aware. She is having phone issues. Ok to leave a detailed message. Tori Salazar RN * Telephone Encounter - Linda Rodriguez MD - 12/16/2023 4:23 PM EDT I will not be refilling progesterone without an EMB. If she would like to get a second opinion regarding surgical options and management with [facility] we can arrange that. I know she is scared of surgerybut she is very high risk patient and she needs to be followed close. My recommendation to her has been she needs a hysteroscopy, D&C with polypectomy which she was set up for but it was then canceled. She has not been seen in the office for over one year. * Telephone Encounter - Tori Salazar RN - 12/15/2023 2:43 PM EDT Spoke with patient. Reviewed the message from Dr. Fermin below. Patient states that she was told that Medicare would not cover the EMB. Referral states Authorized. Offered to schedule patient an EMB again. Declined at this time. Patient states she took her last Megace and would like Dr. Carlos Alberto stoll and order the refill. Aware DM returns to the office tomorrow. Tori Salazar RN * Telephone Encounter - Ashley Melvin RN - 12/15/2023 10:01 AM EDT Left message for patient to call office. Ashley Melvin RN * Telephone Encounter - Tori Fermin MD - 12/11/2023 12:25 PM EDT Has not been seen for over a year. Was suppose to have an EMB at 3 and 6 months to follow for PMB. This needs to be reevaluated. Cannot just keep taking megace without knowing if the hyperplasia has progressed. If she cannot be seen at [facility] then she needs to find another environmental designer . * Telephone Encounter - Ashley Melvin RN - 12/11/2023 11:40 AM EDT Last OV 11/04/22 with RR.. Advised Pt she is overdue for annual/and in need of pap per last OV with RR. Pt requesting refill on Megace. Pt's insurance is out of network and Pt states she is not working and cannot afford to come in. Will send [employer] message informing her she needs to call her insurance to find out who is covered under her insurance. Please address in RR absence. Requested Prescriptions Pending Prescriptions Disp Refills megestrol (MEGACE) 20 mg tablet 30 tablet 4 Sig: Take 1 tablet (20 mg) by mouth once daily. Ashley Melvin RN documented in [facility] encounter[facility] Telephone encounter Note * Telephone Encounter - Linda Rodriguez MD - 12/16/2023 4:23 PM EDT I will not be refilling progesterone without an EMB. If she would like to get a second opinion regarding surgical options and management with [facility] we can arrange that. I know she is scared of surgerybut she is very high risk patient and she needs to be followed close. My recommendation to her has been she needs a hysteroscopy, D&C with polypectomy which she was set up for but it was then canceled. She has not been seen in the office for over one year. [facility]09-24-2024 Telephone encounter Note* Telephone Encounter - Tori Salazar RN - 12/15/2023 2:43 PM EDT Spoke with patient. Reviewed the message from Dr. Fermin below. Patient states that she was told that Medicare would not cover the EMB. Referral states Authorized. Offered to schedule patient an EMB again. Declined at this time. Patient states she took her last Megace and would like Dr. Carlos Alberto stoll and order the refill. Aware DM returns to the office tomorrow. Tori Salazar RN [facility]09-24-2024 Telephone encounter Note* Telephone Encounter - Ashley Melvin RN - 12/15/2023 10:01 AM EDT Left message for patient to call office. Ashley Melvin RN [facility]09-20-2024 Telephone encounter Note* Telephone Encounter - oTri Fermin MD - 12/11/2023 12:25 PM EDT Has not been seen for over a year. Was suppose to have an EMB at 3 and 6 months to follow for PMB. This needs to be reevaluated. Cannot just keep taking megace without knowing if the hyperplasia has progressed. If she cannot be seen at [facility] then she needs to find another environmental designer . [facility] Work Phone: [phone]) [phone] Telephone encounter Note* Telephone Encounter - Ashley Melvin RN - 12/11/2023 11:40 AM EDT Last OV 11/04/22 with RR.. Advised Pt she is overdue for annual/and in need of pap per last OV with RR. Pt requesting refill on Megace. Pt's insurance is out of network and Pt states she is not working and cannot afford to come in. Will send Tipp24 message informing her she needs to call her insurance to find out who is covered under her insurance. Please address in RR absence. Requested Prescriptions Pending Prescriptions Disp Refills megestrol (MEGACE) 20 mg tablet 30 tablet 4 Sig: Take 1 tablet (20 mg) by mouth once daily. Ashley Melvin RN [facility]08-02-2024 Telephone encounter Note* Telephone Encounter - Chrissie Roca LPN - 10/23/2023 4:16 PM EDT Pt. informed. [facility] Work Phone: 1(688) 980-426308-02-2024 Miscellaneous Notes* Telephone Encounter - Chrissie Roca LPN - 10/23/2023 4:16 PM EDT Pt. informed. * Telephone Encounter - Dhara Damon MA - 10/23/2023 4:13 PM EDT Called and left message on patients voicemail to return call to the office and ask to speak with a FM triage nurse. Dhara Damon MA * Telephone Encounter - Alexandra Waller LPN - 10/22/2023 11:33 AM EDT Left message to call office. 10/22/2023 11:33 AM. Alexandra Waller LPN * Telephone Encounter - Ty Narayanan MD - 10/22/2023 10:59 AM EDT OK for 90 day supply as ordered Ty Narayanan MD * Telephone Encounter - Yamileth Trevino RN - 10/21/2023 2:12 PM EDT Patient reports she take temazepam, and provider writes the rx for 30 days. Reports insurance tellsher she can get a 90 day supply and it would be the same quintero. Asking if provider can write the next Rx, due for refill on 10-26-23 for a 90 day supply? Please advise patient. Pended Rx- but need provider to decide on the 90 day supply. Last ov: 04-06-23 Next ov: none documented in this encounterMer[facility]08-[facility]24 Telephone encounter Note * Telephone Encounter - Dhara Damon MA - 10/23/2023 4:13 PM EDT Called and left message on patients voicemail to return call to the office and ask to speak with a triage nurse. Dhara Damon MA [facility]08-01-2024 Telephone encounter Note* Telephone Encounter - Alexandra Waller LPN - 10/22/2023 11:33 AM EDT Left message to call office. 10/22/2023 11:33 AM. Alexandra Waller LPN [facility]08-01-2024 Telephone encounter Note* Telephone Encounter - Ty Narayanan MD - 10/22/2023 10:59 AM EDT OK for 90 day supply as ordered Ty Narayanan MD [facility]07-31-2024 Telephone encounter Note* Telephone Encounter - Yamileth Trevino, RN - 10/21/2023 2:12 PM EDT Patient reports she take temazepam, and provider writes the rx for 30 days. Reports insurance tellsher she can get a 90 day supply and it would be the same quintero. Asking if provider can write the next Rx, due for refill on 10-26-23 for a 90 day supply? Please advise patient. Pended Rx- but need provider to decide on the 90 day supply. Last ov: 04-06-23 Next ov: none [facility]05-28-2024 Telephone encounter Note* Telephone Encounter - Maria A Wilson MA - 08/18/2023 10:48 AM EDT Message left notify pt that rx was sent to pharmacy for her. Maria A Wilson MA [facility]05-28-2024 Miscellaneous Notes* Telephone Encounter - Maria A Wilson MA - 08/18/2023 10:48 AM EDT Message left notify pt that rx was sent to pharmacy for her. Maria A Wilson MA * Telephone Encounter - Maria A Wilson MA - 08/14/2023 3:02 PM EDT Message left for pt to call back. Maria A Wilson MA * Telephone Encounter - Ty Narayanan MD - 08/14/2023 2:18 PM EDT OK for Anusol cream as ordered Ty Narayanan MD * Telephone Encounter - Tiffanie Jimenez LPN - 08/14/2023 12:19 PM EDT Patient calling, states that she has been having trouble with a hemorrhoid. She has been using OTC ointment but it is not helping. Patient is not able to afford an appointment right now and is askingwhat PCP would recommend. Please advise. documented in this encounterMer[facility]05-24-2024 Telephone encounter Note * Telephone Encounter - Maria A Wilson MA - 08/14/2023 3:02 PM EDT Message left for pt to call back. Maria A Wilson MA [facility]05-24-2024 Telephone encounter Note* Telephone Encounter - Ty Narayanan MD - 08/14/2023 2:18 PM EDT OK for Anusol cream as ordered Ty Narayanan MD [facility]05-24-2024 Telephone encounter Note* Telephone Encounter - Tiffanie Jimenez LPN - 08/14/2023 12:19 PM EDT Patient calling, states that she has been having trouble with a hemorrhoid. She has been using OTC ointment but it is not helping. Patient is not able to afford an appointment right now and is askingwhat PCP would recommend. Please advise. [facility]05-07-2024 Telephone encounter Note* Telephone Encounter - Ty Narayanan MD - 07/28/2023 11:38 AM EDT OK to refill as ordered Ty Narayanan MD [facility]05-07-2024 Miscellaneous Notes* Telephone Encounter - Ty Narayanan MD - 07/28/2023 11:38 AM EDT OK to refill as ordered Ty Narayanan MD * Telephone Encounter - Mattie Ferrara LPN - 07/28/2023 11:29 AM EDT Patient has been identified by name and date of : Yes, Provider Oracio Patient phones for refill(s): Requested Prescriptions Pending Prescriptions Disp Refills temazepam (RESTORIL) 15 mg 30 capsule 2 Sig: Take 1 capsule by mouth at bedtime as needed for up to 90 days. Date of last office visit in primary care: 04/06/2023 Date of next office visit in primary care: Visit date not found Please advise. Thank you. Mattie Ferrara LPN. documented in this encounterMer[facility]05-07-2024 Telephone encounter Note * Telephone Encounter - Mattie Frerara LPN - 07/28/2023 11:29 AM EDT Patient has been identified by name and date of : Yes, Provider Oracio Patient phones for refill(s): Requested Prescriptions Pending Prescriptions Disp Refills temazepam (RESTORIL) 15 mg 30 capsule 2 Sig: Take 1 capsule by mouth at bedtime as needed for up to 90 days. Date of last office visit in primary care: 04/06/2023 Date of next office visit in primary care: Visit date not found Please advise. Thank you. Mattie Ferrara LPN. [facility]04-24-2024 Telephone encounter Note* Telephone Encounter - Jeramie Parsons - 07/15/2023 3:44 PM EDT Patient has been identified by name and date of : Yes Patient phones for refill(s): Requested Prescriptions Pending Prescriptions Disp Refills megestrol (MEGACE) 20 mg tablet 30 tablet 4 Sig: Take 1 tablet (20 mg) by mouth once daily. Date of last office visit in primary care: 11/04/2022 Date of next office visit in primary care: Visit date not found Please advise. Thank you. Jeramie Parsons. [facility]04-24-2024 Miscellaneous Notes* Telephone Encounter - Jeramie Parsons - 07/15/2023 3:44 PM EDT Patient has been identified by name and date of : Yes Patient phones for refill(s): Requested Prescriptions Pending Prescriptions Disp Refills megestrol (MEGACE) 20 mg tablet 30 tablet 4 Sig: Take 1 tablet (20 mg) by mouth once daily. Date of last office visit in primary care: 11/04/2022 Date of next office visit in primary care: Visit date not found Please advise. Thank you. Jeramie Parsons. documented in this encounterMer[facility]11-28-2023 Miscellaneous Notes* Telephone Encounter - Mita Lambert RN - 02/17/2023 10:27 AM EST Patient notified and voiced understanding of below information and instructions. Denies wanting to see [facility] at this time. Mita Lambert RN * Telephone Encounter - Dinora Castillo RN - 02/16/2023 4:47 PM EST Left message for patient to call office. DINORA CASTILLO RN * Telephone Encounter - Linda Rodriguez MD - 02/16/2023 4:41 PM EST I am going to change her to megace for remaining time on progesterone to see if that controls bleeding. Does she want to see [facility] for possible surgery for hysterectomy for persistent bleeding? Since we can't get the Mirena IUD approved for her this might be the next step for her. Have her stop all other progesterones- will start megace once daily see if this helps with bleeding better. * Telephone Encounter - Tori Salazar RN - 02/16/2023 11:46 AM EST Patient finished the Norethindrone on Thursday. On she had some brown spotting. Thursday and Thursday her bleeding was heavy. Needed to wear an over night pad. Passing large blood clots. Last night bleeding slowed down. Having bright red bleeding still today, but it's light bleeding. Cramping pain was worse over the weekend. More mild today. Patient aware DM returns to the office tomorrow. Tori Salazar RN documented in this encounterMer[facility]10-30-2023 Miscellaneous Notes* Telephone Encounter - Tori Salazar RN - 01/19/2023 9:29 AM EDT Patient notified. Voiced understanding. Tori Salazar RN * Telephone Encounter - Ellen Kovacs RN - 01/19/2023 9:18 AM EDT Left message for patient to call office. Ellen Kovacs RN * Telephone Encounter - Linda Rodriguez MD - 01/19/2023 8:47 AM EDT Tell her she can take the progesterone TID until bleeding stop then take it BID x 3 days then dailyand hopefully that will control the bleeding for her. Will give her new prescription. * Telephone Encounter - Max Cifuentes MD - 01/16/2023 12:49 PM EDT Noted. As not heavy OK for DM to review Thursday Max Cifuentes MD * Telephone Encounter - Dinora Castillo RN - 01/16/2023 11:52 AM EDT Patient called reporting increase in bleeding. Patient states she would not call it heavy but it has increased and she is now passing some clots. She is changing her pad every 3-4 hours. Still taking provera. Please review in DM's absence. Will also forward to DM. See 01/13 phone note. Dinora Castillo RN documented in this encounterMer[facility]10-25-2023 Miscellaneous Notes* Telephone Encounter - Ellen Kovacs RN - 01/14/2023 4:14 PM EDT Patient notified. Ellen oKvacs RN * Telephone Encounter - Morelia Perez LPN - 01/13/2023 5:06 PM EDT Left message to call office * Telephone Encounter - Linda Rodriguez MD - 01/13/2023 3:23 PM EDT Noted- that is ok so long as not heavy. * Telephone Encounter - Tori Salazar RN - 01/13/2023 3:15 PM EDT Patient had a Hysteroscopy D&C at [facility] on 11/14/22. Calling today to report that she started spotting/bleeding. Taking Provera once a day since it was prescribed on 12/30. Bleeding is bright red incolor and happening every day. Needing to wear a pad/liner. Yesterday she had left side sharp pelvic pain. Denies pain today. Tori Salazar RN documented in this encounterMer[facility]08-25-2023 Discharge summary Author Yamileth gutierrez [facility] November 14, 2022 9:14am Note Date/Time November 14, 2022 8: 45am [facility] Medical Records Department [address] [place] [address] Instructions for Home/Discharge Instructions 11/14/22 0844 MR#: [id number] Acct: [id number] Name: MEGHA CIFUENTES Rep #:[id number] : 1960 61 From: Linda Carcamo MD PCP: Dr. Ty Narayanan MD Status:[facility] Discharge Instructions Diet Discharge Diet: No restrictions Activity May resume sexual activity in: 1 week Dressing / Incision Call your doctor if you observe: Fever of 101 or Higher, Inability to urinate, Using more than 1 pad per hour and Uncontrolled pain Follow Up Care Please Follow Up With: Linda Cherry MD When: 1-2 weeks post OP if you need an appointment please call [phone] Test Results: Test results from this visit will be discussed in further detail at your follow- up appointment, if applicable. Discharge Plan Admission Attending Provider: Linda Cherry Primary Care Provider: Ty Narayanan Discharge Orders/Prescriptions Prescriptions: No Action fluoxetine 20 MG capsule 20 mg PO DAILY bupropion HCl 150 MG tablet extended release 24 hr 150 mg PO DAILY temazepam 15 MG capsule 15 mg PO QHS PRN PRN (Reason: Sleep) levofloxacin 500 mg tablet 500 mg PO Q24H Patient Comments: TAKE ONE TABLET BY MOUTH DAILY AT 9AM (VIAL) naproxen 500 mg tablet Patient Comments: TAKE ONE TABLET BY MOUTH TWICE DAILY WITH FOOD NEEDED FOR PAIN & AND FOR INFLAMMATION (VIAL) Referrals / Follow Up: Ty Narayanan MD [Primary Care Provider] - Disposition Disposition (needs filled in before D/C Order can be placed): Home, Self Care 11/14/22 0914<Electronically signed by Linda Cherry MD>Linda Cherry MD CC: Dr. Ty Narayanan MD ~ Signed [facility] Work Phone: 1(214) 138-717508-25-2023 History and physical note Author M Linda gutierrez [facility] November 14, 2022 8:31am Note Date/Time November 05, 2022 12 :48pm [facility] Medical Records Department [address] [place] [address] History & Physical Exam 11/05/22 1248 MR#: [id number] Acct: [id number] Name: MEGHA CIFUENTES Rep #:[id number] : 1960 61 From: Carolina Galloway MD PCP: Dr. Ty Narayanan MD Status:[facility] Location: [place] [address] History and Physical Date of Admission: 11/14/22 HPI: The patient is a 61 year old female presenting for pre-operative visit. She is scheduled for Hysteroscopy D&C, polyp resection and possible progestin IUD insertion for PMB, endometrial polyp on 11/14/22. Procedure discussed along with risks, benefits and complications. Other alternatives discussed for management. Consent form signed? Yes. ? ? PAST MEDICAL HISTORY PAST MEDICAL HISTORY Diagnosis Date ? Abdominal pain, other specified site ? ? Depression ? ? Diarrhea ? ? Fracture, fibula 04/21/2015 ? mildly displaced spiral right fibula ? GERD (gastroesophageal reflux disease) ? ? Hip arthritis 01/08/2011 ? Lumbar degenerative disc disease 01/06/2012 ? Major depressive disorder, recurrent episode, moderate (HCC) 01/18/2019 ? Tennis elbow ? ? Venous insufficiency of both lower extremities 11/12/2016 ? Venous stasis dermatitis of right lower extremity 11/12/2016 ? ? PAST SURGICAL HISTORY PAST SURGICAL HISTORY Procedure Laterality Date ? ARTHRP ACETBLR/PROX FEM PROSTC AGRFT/ALGRFT Right 06/28/2012 ? ARTHRP ACETBLR/PROX FEM PROSTC AGRFT/ALGRFT Left 08/28/2012 ? ARTHRP KNE CONDYLE&PLATU MEDIAL&LAT COMPARTMENTS Bilateral 08/2013 ? DELIVERY ONLY ? ? ? x2 ? LIG/TRNSXJ FLP TUBE ABDL/VAG APPR UNI/BI ? ? ? Tubal ligation ? MAMM DIAG UNI ? 02/20/2009 ? PAST SURGICAL HISTORY OF ? 07/28 ? hernia repair ? PICC LINE INSERT/CONSULT ? 05/15/2014 ? ? S $ KNEE REVISION Right 07/2014 ? ? ? CURRENT MEDICATIONS Current Outpatient Medications Medication Sig Dispense Refill ? temazepam (RESTORIL) 15 mg Take 1 capsule by mouth at bedtime as needed for up to 90 days. 30 capsule 2 ? naproxen (NAPROSYN) 500 mg tablet TAKE ONE TABLET BY MOUTH TWICE DAILY WITH FOOD NEEDED FOR PAIN AND INFLAMMATION 60 tablet 5 ? ibuprofen (MOTRIN) 800 mg tablet Take 1 tablet by mouth every 8 hours as needed for pain. Take with food. Do not take the same day as you take naproxen 90 tablet 3 ? cholecalciferol, Vitamin D3, (VITAMIN D3) 1,250 mcg (50,000 unit) cap capsule Take 1 capsule by mouth one time a week for 4 doses. 4 capsule 6 ? FLUoxetine (PROZAC) 20 mg capsule Take 1 capsule by mouth once daily. 30capsule 11 ? buPROPion XL (WELLBUTRIN XL) 300 mg 24 hr tablet Take 1 tablet by mouth once daily. 30 tablet 11 ? levoFLOXacin (LEVAQUIN) 500 mg tablet Take 500 mg by mouth once daily. ? ? ? COMPOUNDED PRESCRIPTION [facility] E0651/Segmental Compressor [facility] E067/ Leg Appliance ? Dx: Lymphedema I89.0 Right Lower Extremity Lifetime Usage 1 Each 0 ? No current facility-administered medications for this visit. ? ? ALLERGIES: Patient has no known allergies. ? PERSONAL HISTORY: SOCIAL HISTORY Social History ? Tobacco Use ? Smoking status: Never ? Smokeless tobacco: Never Substance Use Topics ? Alcohol use: No ? Drug use: No ? FAMILY HISTORY: FAMILY HISTORY FAMILY HISTORY Problem Relation Age of Onset ? Coronary Artery Disease Father ? ? age 67 from [place] ? Thyroid Mother ? ? ? REVIEW OF SYMPTOMS: GENERAL: denies fevers or chills ENDOCRINOLOGY: has not been on steroids Cardiology : denies palpitations or chest pain Respiratory: denies SOB or cough Hematology: denies history of prolonged bleeding or easy bruising or VTE Allergy: Denies history of personal or family history of allergy to anesthesia ? PHYSICAL EXAMINATION: ? VITALS: Blood pressure 132/86, weight (!) 360 lb (163.3 kg), last menstrual period 06/04/2018. ? GENERAL: The patient is well nourished, well hydrated in no acute distress. , The patient is oriented to time, place, and person. NECK: Supple. No lynphadenopathy, normal thyroid, no thyromegaly. LUNGS: Clear to auscultation bilaterally. no wheezes, rhonchi or rales HEART: Regular rate and rhythm, Normal heart sounds, and No murmurs or gallops ? ? IMPRESSION: PMB, endometrial polyp ? PLAN: The risks/benefits/alternatives and personal involved for the planned hysteroscopy D&C with polyp resection and possible IUD insertion were reviewed with the patient. Her questions were answered to her satisfaction and she desires to proceed. Consent was signed. I reviewed with her postop instructions and expectations. ? ? I have reviewed and updated past medical and surgical history, medications and allergies 11/05/22 1248 <Electronically signed by Carolina Galloway MD> Cosigner Signature (if applicable): CC: Yamileth Cherry; Dr. Ty Narayanan MD; Dr. Carolina Galloway MD~ Signed ADDENDUM by M Dr. Linda Cherry on 11/14/22 at 0831 Addendum I have examined the patient and the H&P has been reviewed. There are no clinicalchanges since date of exam. No IUD to be placed today as it was not covered by insurance. Hysteroscopy D&C with Symphion only. 11/14/22 0831<Electronically signed by Linda Cherry MD> Cosigner Signature (if applicable): cc: Yamileth Cherry; Dr. Ty Narayanan MD; Dr. Carolina Glaloway MD ~* Signed [facility] Work Phone: 1(415) 229-368008-25-2023 Procedure [facility] 11-04-2022 History of Present illness Narrative* Carolina Galloway MD - 11/04/2022 3:48 PM EDT Megha Cifuentes is a 61 year old female who presents for problem visit for PMB. HPI: 61 YOF w/ h/o PMB, endometrial polyps and thickened endoemtrium presents for f/u today. Had hysteroscopy D&C scheduled in past and cancelled. Still having intermittent bleeding. Thought it was the aleve causing it so changed to motrin. No other new environmental designer c/o today. OB History T0 L2 SAB0 IAB0 Ectopic0 Multiple0 Live Births0 Ticket Seller History LMP: 06/04/2018 (Approximate), Perimenopausal Age at Menarche: Age at First : Age at Menopause: Ticket Seller History Comments: Sexual Activity: Not Currently; Male Contraception: Tubal Ligation PAST MEDICAL HISTORY Diagnosis Date Abdominal pain, other specified site Depression Diarrhea Fracture, fibula 04/21/2015 mildly displaced spiral right fibula GERD (gastroesophageal reflux disease) Hip arthritis 01/08/2011 Lumbar degenerative disc disease 01/06/2012 Major depressive disorder, recurrent episode, moderate (HCC) 01/18/2019 Tennis elbow Venous insufficiency of both lower extremities 11/12/2016 Venous stasis dermatitis of right lower extremity 11/12/2016 PAST SURGICAL HISTORY Procedure Laterality Date ARTHRP ACETBLR/PROX FEM PROSTC AGRFT/ALGRFT Right 06/28/2012 ARTHRP ACETBLR/PROX FEM PROSTC AGRFT/ALGRFT Left 08/28/2012 ARTHRP KNE CONDYLE&PLATU MEDIAL&LAT COMPARTMENTS Bilateral 08/2013 DELIVERY ONLY x2 LIG/TRNSXJ FLP TUBE ABDL/VAG APPR UNI/BI Tubal ligation MAMM DIAG UNI 02/20/2009 PAST SURGICAL HISTORY OF 07/28 hernia repair PICC LINE INSERT/CONSULT 05/15/2014 S $ KNEE REVISION Right 07/2014 FAMILY HISTORY Problem Relation Age of Onset Coronary Artery Disease Father age 67 from [place] Thyroid Mother Social History Tobacco Use Smoking status: Never Smokeless tobacco: Never Substance Use Topics Alcohol use: No Drug use: No Current Outpatient Medications Medication Sig temazepam (RESTORIL) 15 mg Take 1 capsule by mouth at bedtime as needed for up to 90 days. naproxen (NAPROSYN) 500 mg tablet TAKE ONE TABLET BY MOUTH TWICE DAILY WITH FOOD NEEDED FOR PAINAND INFLAMMATION ibuprofen (MOTRIN) 800 mg tablet Take 1 tablet by mouth every 8 hours as needed for pain. Take withfood. Do not take the same day as you take naproxen cholecalciferol, Vitamin D3, (VITAMIN D3) 1,250 mcg (50,000 unit) cap capsule Take 1 capsule by mouth one time a week for 4 doses. FLUoxetine (PROZAC) 20 mg capsule Take 1 capsule by mouth once daily. buPROPion XL (WELLBUTRIN XL) 300 mg 24 hr tablet Take 1 tablet by mouth once daily. levoFLOXacin (LEVAQUIN) 500 mg tablet Take 500 mg by mouth once daily. COMPOUNDED PRESCRIPTION [facility] E0651/Segmental Compressor [facility] E067/ Leg Appliance Dx: Lymphedema I89.0 Right Lower Extremity Lifetime Usage No current facility-administered medications for this visit. Allergies As of Date: 11/04/2022 (No Known Allergies) Fully Assessed 11/04/2022 Expanded ROS: N/A Allergies and current medication updated:Yes EXAM: BP 132/86 Wt 360 lb (163.3kg) LMP 06/04/2018 GENERAL: pleasant, female in no apparent distress HEENT: Normocephalic, atraumatic, mucus membranes moist, and no lesions ASSESSMENT AND PLAN: PMB, thickened endometrium, polyp on EMB Reviewed pelvic US, last pap and EMB. We reviewed risk benefits and alternatives to hysteroscopy, dilation and curettage with possible progestin IUD insertion. Patient states she does not want progestin IUD is not covered by her insurance. Reviewed importance of proceeding with surgery. Discussed with her this may be diagnostic as wellas therapeutic to help her postmenopausal bleeding. We reviewed that the reason for putting in the IUD would help prevent endometrial hyperplasia and/or uterine cancer in the future. Patient's questions were answered to her satisfaction she desires to proceed. Of note patient is also due for Pap smear. Carolina Galloway MD documented in this encounterMercy Health St[facility]08[facility]23 History and physical note * Carolina Galloway MD - 11/04/2022 2:20 PM EDT Pre-Op History and Physical HPI: The patient is a 61 year old female presenting for pre-operative visit. She is scheduled for Hysteroscopy D&C, polyp resection and possible progestin IUD insertion forPMB, endometrial polyp on 11/14/22. Procedure discussed along with risks, benefits and complications. Other alternatives discussed for management. Consent form signed? Yes. PAST MEDICAL HISTORY Diagnosis Date Abdominal pain, other specified site Depression Diarrhea Fracture, fibula 04/21/2015 mildly displaced spiral right fibula GERD (gastroesophageal reflux disease) Hip arthritis 01/08/2011 Lumbar degenerative disc disease 01/06/2012 Major depressive disorder, recurrent episode, moderate (HCC) 01/18/2019 Tennis elbow Venous insufficiency of both lower extremities 11/12/2016 Venous stasis dermatitis of right lower extremity 11/12/2016 PAST SURGICAL HISTORY Procedure Laterality Date ARTHRP ACETBLR/PROX FEM PROSTC AGRFT/ALGRFT Right 06/28/2012 ARTHRP ACETBLR/PROX FEM PROSTC AGRFT/ALGRFT Left 08/28/2012 ARTHRP KNE CONDYLE&PLATU MEDIAL&LAT COMPARTMENTS Bilateral 08/2013 DELIVERY ONLY x2 LIG/TRNSXJ FLP TUBE ABDL/VAG APPR UNI/BI Tubal ligation MAMM DIAG UNI 02/20/2009 PAST SURGICAL HISTORY OF 07/28 hernia repair PICC LINE INSERT/CONSULT 05/15/2014 S $ KNEE REVISION Right 07/2014 Current Outpatient Medications Medication Sig Dispense Refill temazepam (RESTORIL) 15 mg Take 1 capsule by mouth at bedtime as needed for up to 90 days. 30 capsule 2 naproxen (NAPROSYN) 500 mg tablet TAKE ONE TABLET BY MOUTH TWICE DAILY WITH FOOD NEEDED FOR PAINAND INFLAMMATION 60 tablet 5 ibuprofen (MOTRIN) 800 mg tablet Take 1 tablet by mouth every 8 hours as needed for pain. Take withfood. Do not take the same day as you take naproxen 90 tablet 3 cholecalciferol, Vitamin D3, (VITAMIN D3) 1,250 mcg (50,000 unit) cap capsule Take 1 capsule by mouth one time a week for 4 doses. 4 capsule 6 FLUoxetine (PROZAC) 20 mg capsule Take 1 capsule by mouth once daily. 30 capsule 11 buPROPion XL (WELLBUTRIN XL) 300 mg 24 hr tablet Take 1 tablet by mouth once daily. 30 tablet 11 levoFLOXacin (LEVAQUIN) 500 mg tablet Take 500 mg by mouth once daily. COMPOUNDED PRESCRIPTION [facility] E0651/Segmental Compressor [facility] E067/ Leg Appliance Dx: Lymphedema I89.0 Right Lower Extremity Lifetime Usage 1 Each 0 No current facility-administered medications for this visit. ALLERGIES: Patient has no known allergies. PERSONAL HISTORY: Social History Tobacco Use Smoking status: Never Smokeless tobacco: Never Substance Use Topics Alcohol use: No Drug use: No FAMILY HISTORY: FAMILY HISTORY Problem Relation Age of Onset Coronary Artery Disease Father [place] 67 [place] Mother REVIEW OF SYMPTOMS: GENERAL: denies fevers or chills ENDOCRINOLOGY: has not been on steroids Cardiology : denies palpitations or chest pain Respiratory: denies SOB or cough Hematology: denies history of prolonged bleeding or easy bruising or VTE Allergy: Denies history of personal or family history of allergy to anesthesia PHYSICAL EXAMINATION: VITALS: Blood pressure 132/86, weight (!) 360 lb (163.3 kg), last menstrual period 06/04/2018. GENERAL: The patient is well nourished, well hydrated in no acute distress. , The patient is oriented to time, place, and person. NECK: Supple. No lynphadenopathy, normal thyroid, no thyromegaly. LUNGS: Clear to auscultation bilaterally. no wheezes, rhonchi or rales HEART: Regular rate and rhythm, Normal heart sounds, and No murmurs or gallops IMPRESSION: PMB, endometrial polyp PLAN: The risks/benefits/alternatives and personal involved for the planned hysteroscopy D&C with polyp resection and possible IUD insertion were reviewed with the patient. Her questions were answered to her satisfaction and she desires to proceed. Consent was signed. I reviewed with her postopinstructions and expectations. I have reviewed and updated past medical and surgical history, medications and allergies Carolina Galloway M.D. documented in this encounterMercy Health St. [facility]08-11-2023 Miscellaneous Notes* Telephone Encounter - Ellen Kovacs RN - 10/31/2022 3:45 PM EDT Patient came into office and form was signed. Records release, letter of medical necessity, and clinical documentation all faxed for appeal. Ellen Kovacs RN * Telephone Encounter - Ellen Kovacs RN - 10/31/2022 10:02 AM EDT Spoke to patient because she did not come in yesterday to sign. States she forgot. Will try to figure out a time to come back to office for it. She is aware appeal cannot be sent in until this is signed and there is a chance we wouldn't have response from insurance prior to surgery date if postponed. Ellen Kovacs RN * Telephone Encounter - Ellen Kovacs RN - 10/30/2022 12:41 PM EDT Patient planning to come into office this afternoon to sign. Form in nurse triage room. Ellen Kovacs RN * Telephone Encounter - Ellen Kovacs RN - 10/30/2022 10:26 AM EDT Left message for patient to call office. Ellen Kovacs RN * Telephone Encounter - Ellen Kovacs RN - 10/29/2022 4:44 PM EDT Left message for patient to call office. Insurance has denied Mirena IUD with surgery on 11/14/22. In process of filing an appeal. [place] [employer] requires a member authorization form though to give permission to release medical records to them. Is she able to come in [place] to sign that? Or can we fax it to her somewhere and she can fax back? Form in triage room. Ellen Kovacs RN documented in this encounterMercy Health St. [facility]06-20-2023 History and physical note * Linda Carcamo MD - 09/09/2022 12:33 PM EDT Pre-Op History and Physical HPI: The patient is a 61 year old female presenting for pre-operative visit. She is scheduled for Hysteroscopy D&C and polypectomy and insertion of liletta iud , for PMB, endometrial polyp, endometrial hyperplasia on 09/26/22. Procedure discussed along with risks, benefits and complications. Other alternatives discussed for management. Consent form signed? Yes. PAST MEDICAL HISTORY Diagnosis Date Abdominal pain, other specified site Depression Diarrhea Fracture, fibula 04/21/2015 mildly displaced spiral right fibula GERD (gastroesophageal reflux disease) Hip arthritis 01/08/2011 Lumbar degenerative disc disease 01/06/2012 Major depressive disorder, recurrent episode, moderate (HCC) 01/18/2019 Tennis elbow Venous insufficiency of both lower extremities 11/12/2016 Venous stasis dermatitis of right lower extremity 11/12/2016 PAST SURGICAL HISTORY Procedure Laterality Date ARTHRP ACETBLR/PROX FEM PROSTC AGRFT/ALGRFT Right 06/28/2012 ARTHRP ACETBLR/PROX FEM PROSTC AGRFT/ALGRFT Left 08/28/2012 ARTHRP KNE CONDYLE&PLATU MEDIAL&LAT COMPARTMENTS Bilateral 08/2013 DELIVERY ONLY x2 LIG/TRNSXJ FLP TUBE ABDL/VAG APPR UNI/BI Tubal ligation MAMM DIAG UNI 02/20/2009 PAST SURGICAL HISTORY OF 07/28 hernia repair PICC LINE INSERT/CONSULT 05/15/2014 S $ KNEE REVISION Right 07/2014 Current Outpatient Medications Medication Sig Dispense Refill temazepam (RESTORIL) 15 mg Take 1 capsule by mouth at bedtime as needed for up to 90 days. 30 capsule 2 naproxen (NAPROSYN) 500 mg tablet TAKE ONE TABLET BY MOUTH TWICE DAILY WITH FOOD NEEDED FOR PAINAND INFLAMMATION 60 tablet 5 ibuprofen (MOTRIN) 800 mg tablet Take 1 tablet by mouth every 8 hours as needed for pain. Take withfood. Do not take the same day as you take naproxen 90 tablet 3 cholecalciferol, Vitamin D3, (VITAMIN D3) 1,250 mcg (50,000 unit) cap capsule Take 1 capsule by mouth one time a week for 4 doses. 4 capsule 6 FLUoxetine (PROZAC) 20 mg capsule Take 1 capsule by mouth once daily. 30 capsule 11 buPROPion XL (WELLBUTRIN XL) 300 mg 24 hr tablet Take 1 tablet by mouth once daily. 30 tablet 11 levoFLOXacin (LEVAQUIN) 500 mg tablet Take 500 mg by mouth once daily. COMPOUNDED PRESCRIPTION [facility] E0651/Segmental Compressor [facility] E067/ Leg Appliance Dx: Lymphedema I89.0 Right Lower Extremity Lifetime Usage 1 Each 0 No current facility-administered medications for this visit. ALLERGIES: Patient has no known allergies. PERSONAL HISTORY: Social History Tobacco Use Smoking status: Never Smokeless tobacco: Never Substance Use Topics Alcohol use: No Drug use: No FAMILY HISTORY: FAMILY HISTORY Problem Relation Age of Onset Coronary Artery Disease Father age 67 [place] Thy[place] Mother REVIEW OF SYMPTOMS: negative except as noted above PHYSICAL EXAMINATION: VITALS: Blood pressure 132/84, weight (!) 354 lb (160.6 kg), last menstrual period 06/04/2018. GENERAL: The patient is well nourished, well hydrated in no acute distress. , The patient is oriented to time, place, and person. NECK: full range of motion LUNGS: Clear to auscultation bilaterally. no wheezes, rhonchi or rales HEART: Regular rate and rhythm, Normal heart sounds, and No murmurs or gallops IMPRESSION: PMB, Endometrial hyperplasia, Endometrial polyp PLAN: Hysteroscopy,D&C, polypectomy insertion of liletta IUD Pt has been counseled on risks/benefits and alternatives of surgery including but not limited to anesthesia, bleeding, infection, uterine perforation with subsequent injury to pelvic structures including bowel, bladder, ureters and vessels. Pt wishes to proceed with surgery at this time. Pre and post op instructions reviewed I have reviewed and updated past medical and surgical history, medications and allergies Linda Carcamo MD documented in this encounterMercy Health [facility]06-20-2023 History of Present illness Narrative* Linda Carcamo MD - 09/09/2022 12:32 PM EDT documented in this encounterMercy Health St. [facility]06-17-2023 Miscellaneous Notes* Telephone Encounter - Lori Hernández - 09/06/2022 12:25 PM EDT OON referral placed for review * Telephone Encounter - Marjorie Soni RN - 09/04/2022 2:48 PM EDT Patient needs scheduled for over due 6 month follow up and medication refill. Needs referral. Please call [phone] once appointment approved. Thank You, Marjorie Soni RN documented in this encounterMercy Health St. [facility]06-15-2023 Miscellaneous Notes* Telephone Encounter - Ty Narayanan MD - 09/04/2022 3:57 PM EDT OK to refill as ordered Ty Narayanan MD * Telephone Encounter - Marjorie Soni RN - 09/04/2022 2:44 PM EDT Patient has been identified by name and date of : Yes, Marjorie Soni RN Date 09/04/2022 Time 2:40 pm Patient phones for refill(s): Requested Prescriptions Pending Prescriptions Disp Refills temazepam (RESTORIL) 15 mg 30 capsule 2 Sig: Take 1 capsule by mouth at bedtime as needed for up to 90 days. Date of last office visit with pcp: 01/16/2022 Next appt: None. Needs scheduled once referral is placed. Message to Clerical staff. Last 2 Encounter Wt Readings: Date: Wt: 07/04/2022 161.9 kg (357 lb) 01/16/2022 156.5 kg (345 lb) Previous labs/tests for medication: Blood Pressure: BUN (mg/dL) Date Value 01/16/2022 7 11/06/2020 11 Sodium (mmol/L) Date Value 01/16/2022 141 11/06/2020 137 Last 1 Encounter BP Readings: Date: BP: 07/04/2022 134/84 Liver Function: ALT (U/L) Date Value 01/16/2022 12 11/06/2020 12 AST (U/L) Date Value 01/16/2022 17 11/06/2020 19 Please advise. Thank you. Marjorie Soni RN documented in this encounterMercy Health St. [facility]06-02-2023 Miscellaneous Notes* Telephone Encounter - Maria A Wilson Ma - 08/22/2022 1:15 PM EDT Office [facility] E0[facility] Pneumatic Compression device. Form was faxed back to company due to it having all of Dr. Neville Crowder's information on it rather than pt new PCP, Dr. Narayanan. Advised on form that Dr. Crowder has retired and to send new form with Dr. Narayanan's info on it. Maria A Wilson Ma documented in this encounterMercy Health St. [facility]05-09-2023 Miscellaneous Notes* Telephone Encounter - Morelia Perez LPN - 07/29/2022 1:45 PM EDT Patient prefers 09/26/2022 * Telephone Encounter - Mita Lambert RN - 07/25/2022 3:42 PM EDT Spoke with patient in regards to surgery. Not able to do 08/07, would like to be called with other options for dates. Aware chief crew scheduler will be in contact with her. Mita Lambert RN * Telephone Encounter - Chioma Arteaga LPN - 07/24/2022 3:18 PM EDT Message left asking pt to contact our office re: surgery date. Chioma Arteaga LPN * Telephone Encounter - Joann Bennett RN - 07/22/2022 3:12 PM EDT Attempted to call patient. She was in a very noisy place and said she could not hear me. I asked her to call us back * Telephone Encounter - Chioma Arteaga LPN - 07/15/2022 3:14 PM EDT Again attempted to contact pt, voicemail left asking pt to call the office to further discuss surgery. Pt has not recently been active on [facility] so no message sent. Chioma Arteaga LPN * Telephone Encounter - Morelia Perez LPN - 07/10/2022 11:20 AM EDT Attempted to contact patient. No answer. Next available date for surgery with Dr. Carcamo is 08/07/[address] Carcamo. Patient will need a pre-operative appointment documented in this encounterMercy Health St. [facility]04-14-2023 History of Present illness Narrative* Linda Carcamo MD - 07/04/2022 11:13 AM EDT Megha is a 61 year old who presents today for an endometrial biopsy for post menopausal bleedingh/o Complex EM hyperplasia test: na UNIVERSAL PROTOCOL / SAFETY CHECKLIST Procedure to be Performed: EMB Sign In: A Moment of CARE was completed. Personnel directly involved with the procedure wore the appropriate PPE (Personal Protective Equipment). Patient/Surrogate Stated/Verified: PATIENT VERIFIED(optional for EMERGENT procedures): Patient name, Date of , Relevant allergies, and The intended procedure Time Out Communication: Intended patient and procedure match the source documents. Consent documented and matches the intended procedure. Sign Out: SIGN OUT (optional for EMERGENT procedures): All specimen containers correctly labeled. Linda Cherry MD PROCEDURE: EXTERNAL GENITALIA: Normal in appearance without lesions VAGINA: Normal in appearance without lesions BIOPSY: Speculum placed into the vagina with excellent visualization of the cervix. Cervix cleaned with betadine. Uterus sounded to 10 cm. Pipelle inserted into the uterus without difficulty and endometrial biopsy obtained. Specimen labeled and sent to pathology. Hemostasis achieved. Procedure Summary: Patient tolerated procedure well. ASSESSMENT: post menopausal bleeding, endometrial hyperplasia PLAN: Specimens labeled and sent to Pathology. Will notify patient of results in 1-2 weeks. Linda Cherry MD * Linda Carcamo MD - 07/04/2022 9:03 AM EDT Contracts Director offered: Patient declines. Megha Cifuentes is a 61 year old female who presents for concerns regarding postmenopausal bleeding. Patient was seen many years ago for postmenopausal bleeding and was placed on progesterone therapy. Patient states that since March she has had irregular bleeding. Patient states the bleeding canbe light or it can be heavy with clots. Patient reports has not taken progesterone for many years. Patient offers no other concerns today. She states sometimes she feels like her heart is racing but this is not unusual for her. She denies any significant abdominal pain. She denies any significant changes with her weight other than increasing. She denies any changes with her bowel habits. She denies constipation diarrhea or bloating. She reports no other concerns at this time today. She denies being sexually active. She states no foul vaginal odors discharge. OB History T0 L2 SAB0 IAB0 Ectopic0 Multiple0 Live Births0 Ticket Seller History LMP: 06/04/2018 (Approximate), Perimenopausal Age at Menarche: Age at First : Age at Menopause: Ticket Seller History Comments: Sexual Activity: Not Currently; Male Contraception: Tubal Ligation PAST MEDICAL HISTORY Diagnosis Date Abdominal pain, other specified site Depression Diarrhea Fracture, fibula 04/21/2015 mildly displaced spiral right fibula GERD (gastroesophageal reflux disease) Hip arthritis 01/08/2011 Lumbar degenerative disc disease 01/06/2012 Major depressive disorder, recurrent episode, moderate (HCC) 01/18/2019 Tennis elbow Venous insufficiency of both lower extremities 11/12/2016 Venous stasis dermatitis of right lower extremity 11/12/2016 PAST SURGICAL HISTORY Procedure Laterality Date ARTHRP ACETBLR/PROX FEM PROSTC AGRFT/ALGRFT Right 06/28/2012 ARTHRP ACETBLR/PROX FEM PROSTC AGRFT/ALGRFT Left 08/28/2012 ARTHRP KNE CONDYLE&PLATU MEDIAL&LAT COMPARTMENTS Bilateral 08/2013 DELIVERY ONLY x2 LIG/TRNSXJ FLP TUBE ABDL/VAG APPR UNI/BI Tubal ligation MAMM DIAG UNI 02/20/2009 PAST SURGICAL HISTORY OF 07/28 hernia repair PICC LINE INSERT/CONSULT 05/15/2014 S $ KNEE REVISION Right 07/2014 FAMILY HISTORY Problem Relation Age of Onset Coronary Artery Disease Father age 67 [place] Thyroid Mother Social History Tobacco Use Smoking status: Never Smokeless tobacco: Never Substance Use Topics Alcohol use: No Drug use: No Current Outpatient Medications Medication Sig temazepam (RESTORIL) 15 mg Take 1 capsule by mouth at bedtime as needed for up to 90 days. naproxen (NAPROSYN) 500 mg tablet TAKE ONE TABLET BY MOUTH TWICE DAILY WITH FOOD NEEDED FOR PAINAND INFLAMMATION ibuprofen (MOTRIN) 800 mg tablet Take 1 tablet by mouth every 8 hours as needed for pain. Take withfood. Do not take the same day as you take naproxen cholecalciferol, Vitamin D3, (VITAMIN D3) 1,250 mcg (50,000 unit) cap capsule Take 1 capsule by mouth one time a week for 4 doses. FLUoxetine (PROZAC) 20 mg capsule Take 1 capsule by mouth once daily. buPROPion XL (WELLBUTRIN XL) 300 mg 24 hr tablet Take 1 tablet by mouth once daily. levoFLOXacin (LEVAQUIN) 500 mg tablet Take 500 mg by mouth once daily. COMPOUNDED PRESCRIPTION [facility] E0651/Segmental Compressor [facility] E067/ Leg Appliance Dx: Lymphedema I89.0 Right Lower Extremity Lifetime Usage No current facility-administered medications for this visit. Allergies As of Date: 07/04/2022 (No Known Allergies) Fully Assessed 07/04/2022 REVIEW OF SYSTEMS Abdomen: No bloating, early satiety, indigestion, or increased flatulence. No abdominal pain, nausea, vomiting, diarrhea, or constipation. Bladder: no dysuria.. Expanded ROS: negative fever Allergies and current medication updated:yes EXAM: BP 134/84 Wt 357 lb (161.9kg) LMP 06/04/2018 GENERAL: pleasant, female in no apparent distress HEENT: Normocephalic NECK: full range of motion DERMATOLOGY: normal PELVIC: external genitalia normal, normal Bartholin's glands, urethra, [place]'s glands, no vulvar lesions, no cervical lesions, good vaginal support, normal appearing perineal body and perianal region, moderate amt of blood in vault. NEURO: alert and oriented x3,exam grossly non-focal EXTREMITIES: edema ASSESSMENT AND PLAN: Encounter Diagnosis ICD-10-CM 1. PMB (postmenopausal bleeding) N95.0 PELVIC US [facility] ENDOMETRIAL BIOPSY SURGICAL PATHOLOGY 2. Endometrial hyperplasia N85.00 3. Class 3 severe obesity with body mass index (BMI) of 50.0 to 59.9 in adult, unspecified obesity type, unspecified whether serious comorbidity present ([facility]) E66.01 Z68.43 4. We will get pelvic ultrasound. Discussed that she does have a history of endometrial hyperplasiawhich she was treated for. Previously patient declined having a D&C for the endometrial hyperplasia. Discussed with the patient that this could be hyperplasia versus endometrial cancer. Discussedwith her she may need an appointment with oncology. Discussed with her that if this biopsy is negative I would still recommend a hysteroscopy D&C for further evaluation due to the extent of her bleeding. Patient verbalized understanding. I will wait for the results of the ultrasound and the biopsy. Medical Decision Making: Problems: Moderate: New problem with uncertain prognosis and 1+ chronic illnesses with change Data: Unique test(s) ordered: 2 Risk: Moderate: Moderate risk from testing/treatment Medical Decision Making Level: 4 - Moderate Linda Cherry MD documented in this encounterMercy Health St. [facility]03-23-2023 Miscellaneous Notes* Telephone Encounter - Ty Narayanan MD - 06/12/2022 4:22 PM EDT OK to refill as ordered Ty Narayanan MD * Telephone Encounter - Alexandra Waller LPN - 06/12/2022 3:47 PM EDT Patient phones requesting refills as follows: Requested Prescriptions Pending Prescriptions Disp Refills temazepam (RESTORIL) 15 mg 30 capsule 2 Sig: Take 1 capsule by mouth at bedtime as needed for up to 90 days. HARSH: 01/16/22 NOV: None scheduled Last Refill: 03/18/22 #30 2 refills Alexandra Waller LPN documented in this encounterMercy Health St. [facility]01-05-2023 Miscellaneous Notes* Telephone Encounter - Tori Camara - 03/27/2022 9:34 AM EST Patient needs to call billing about OON INS. She prefers to come to the [place] location. Tori Camara documented in this encounterMercy Health St. [facility]11-22-2022 Miscellaneous Notes* Telephone Encounter - Raghu Nuñez APRN.CNP - 02/11/2022 11:01 AM EST PDMP website checked and validated. All prescriptions have been APPROPRIATELY filled. No suspiciousactivity was identified. 02/11/2022 by Raghu Nuñez APRN.CNP The following approved medication requests have been transmitted electronically. Requested Prescriptions Signed Prescriptions Disp Refills temazepam (RESTORIL) 15 mg 30 capsule 0 Sig: TAKE 1 CAPSULE BY MOUTH AT BEDTIME NEEDED Authorizing Provider: RAGHU NUÑEZ APRN.CNP * Telephone Encounter - Pamela Cespedes LPN - 02/11/2022 10:32 AM EST Patient has been identified by name and date of : Yes Patient phones for refill(s): Requested Prescriptions Pending Prescriptions Disp Refills temazepam (RESTORIL) 15 mg 30 capsule 0 Sig: TAKE 1 CAPSULE BY MOUTH AT BEDTIME NEEDED Date of last office visit in primary care: 01/16/2022, no future appt scheduled Last 2 Encounter Wt Readings: Date: Wt: 01/16/2022 156.5 kg (345 lb) 06/21/2021 159.4 kg (351 lb 6.4 oz) Previous labs/tests for medication: Not applicable Please advise. Thank you. Pamela Cespedes LPN documented in this encounterMercy Health St. [facility]11-03-2022 Miscellaneous Notes* Telephone Encounter - Sherry Shah LPN - 01/23/2022 9:09 AM EDT Patient notified of results, verbalizes understanding of instructions. Sherry Shah LPN * Telephone Encounter - Bronwyn Solo APRN.CNP - 01/23/2022 8:44 AM EDT Can you please call the patient and let her know that I reviewed her lab results. Vitamin D is still low. I would like her to continue to take her once weekly vitamin D supplement. Can you please ask if she needs a refill? A1c was 5.6, no signs of diabetes. LDL cholesterol just mildly elevated at 120. I would recommend lifestyle changes at home to help improve this. Try to eat lean cuts of meat, increase vegetables, and get some form of exercise. No further testing needed at this time. Please let me know if she has any questions. Thank you. Bronwyn Solo APRN.CNP documented in this encounterMercy Health St. [facility]10-27-2022 Instructions* Patient Instructions* Bronwyn Solo APRN.CNP - 01/16/2022 10:58 AM EDT Get fasting labs completed, no food 8-10 hours prior. May have black coffee and water. Continue to take all medications as prescribed. Follow up in 6 months if needed. documented in this encounterMercy Health St. [facility]10-27-2022 History of Present illness Narrative* Bronwyn Solo APRN.CNP - 01/16/2022 10:40 AM EDT This is a 61 year old female who presents today with: Patient presents with: 6 Month Exam HISTORY OF PRESENT ILLNESS: Megha Cifuentes is a 61 year old female. Patient presents with: 6 Month Exam Here in the office for 6-month follow-up. 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 Depression: Taking Prozac 20 mg and Wellbutrin XL 300 mg daily. At times forgets to take medications. Denies any increased sadness, anxiety, SI/HI. Insomnia: Taking Restoril 15 mg at bedtime. Medication working well for sleep. OA: Chronic pain in knees. Taking anti-inflammatories as needed for pain. On long-term antibiotics,Levaquin due to knee infections. Will be on medication for life per patient. Follows with Dr. Graham in orthopedics. Vitamin D deficiency: Taking 50,000 units once weekly. Colonoscopy: Has never had completed. Denies wanting at this time. Vaccines: denies wanting any vaccines. PAST MEDICAL HISTORY: PAST MEDICAL HISTORY Diagnosis Date Abdominal pain, other specified site Depression Diarrhea Fracture, fibula 04/21/2015 mildly displaced spiral right fibula GERD (gastroesophageal reflux disease) Hip arthritis 01/08/2011 Lumbar degenerative disc disease 01/06/2012 Major depressive disorder, recurrent episode, moderate (HCC) 01/18/2019 Tennis elbow Venous insufficiency of both lower extremities 11/12/2016 Venous stasis dermatitis of right lower extremity 11/12/2016 PAST SURGICAL HISTORY Procedure Laterality Date ARTHRP ACETBLR/PROX FEM PROSTC AGRFT/ALGRFT Right 06/28/2012 ARTHRP ACETBLR/PROX FEM PROSTC AGRFT/ALGRFT Left 08/28/2012 ARTHRP KNE CONDYLE&PLATU MEDIAL&LAT COMPARTMENTS Bilateral 08/2013 DELIVERY ONLY x2 LIG/TRNSXJ FLP TUBE ABDL/VAG APPR UNI/BI Tubal ligation MAMM DIAG UNI 02/20/2009 PAST SURGICAL HISTORY OF 07/28 hernia repair PICC LINE INSERT/CONSULT 05/15/2014 S $ KNEE REVISION Right 07/2014 ALLERGIES Patient has no known allergies. MEDICATIONS Current Outpatient Medications Medication Sig temazepam (RESTORIL) 15 mg TAKE 1 CAPSULE BY MOUTH AT BEDTIME NEEDED naproxen (NAPROSYN) 500 mg tablet TAKE ONE TABLET BY MOUTH TWICE DAILY WITH FOOD NEEDED FOR PAINAND INFLAMMATION ibuprofen (MOTRIN) 800 mg tablet Take 1 tablet by mouth every 8 hours as needed for pain. Take withfood. Do not take the same day as you take naproxen cholecalciferol, Vitamin D3, (VITAMIN D3) 1,250 mcg (50,000 unit) cap capsule Take 1 capsule by mouth one time a week for 4 doses. FLUoxetine (PROZAC) 20 mg capsule Take 1 capsule by mouth once daily. buPROPion XL (WELLBUTRIN XL) 300 mg 24 hr tablet Take 1 tablet by mouth once daily. levoFLOXacin (LEVAQUIN) 500 mg tablet Take 500 mg by mouth once daily. COMPOUNDED PRESCRIPTION [facility] E0651/Segmental Compressor [facility] E067/ Leg Appliance Dx: Lymphedema I89.0 Right Lower Extremity Lifetime Usage No current facility-administered medications for this visit. FAMILY HISTORY Problem Relation Age of Onset Coronary Artery Disease Father age 67 from [place] Mother Social History Tobacco Use Smoking status: Never Smokeless tobacco: Never Substance Use Topics Alcohol use: No Drug use: No REVIEW OF SYSTEMS GENERAL: No weight loss, malaise or fevers/chills HEENT: Negative for frequent or significant headaches, No changes in hearing or vision. NECK: Negative for lumps, goiter, pain and significant neck swelling RESPIRATORY: Negative for cough, hemoptysis, wheezing, dyspnea or shortness of breath CARDIOVASCULAR: Negative for chest pain, leg swelling, orthopnea, or palpitations GI: No nausea, vomiting, or diarrhea/constipation. No hematochezia/melena. No heartburn or reflux symptoms. : No history of dysuria, frequency or incontinence MUSCULOSKELETAL: Negative for joint pain or swelling. SKIN: Negative for lesions, rash, and itching ENDOCRINE: Negative for cold or heat intolerance, polyuria, polydipsia and goiter NEURO: No history of headaches, syncope, paralysis, seizures or tremors MOOD: Negative for depression, anxiety, or suicidal ideation. EXAM: BP 140/94 Pulse 86 Resp 20 Wt (!) 156.5 kg (345 lb) LMP 06/04/2018 (Approximate) SpO2 96% BMI 50.52 kg/m PHYSICAL EXAM: General Appearance: Well appearing, alert, in no acute distress, well-hydrated, well nourished. Skin: Skin color, texture, turgor normal, no suspicious rashes or lesions. Head: Normocephalic, no masses, lesions, tenderness or abnormalities. Eyes: Anicteric sclera. Extraocular movements are intact. Neck: Supple, no adenopathy; thyroid symmetric, normal size, no bruits. Lungs: Lungs clear to auscultation. No wheezing, rhonchi, rales. Heart: RRR without murmur, gallop, or rubs. No ectopy. Extremities: No deformities, edema, skin discoloration, clubbing or cyanosis. Good capillary refill. Peripheral Pulses: Normal, Capillary refill <2secs, strong peripheral pulses, Pulses palpable. Neurologic: Gait normal. Reflexes normal and symmetric. Sensation grossly intact. ASSESSMENT/PLAN: 1. Major depressive disorder, recurrent episode, moderate (HCC) - ICD9: 296.32, ICD10: F33.1 (primary diagnosis) - Continue with Prozac and Wellbutrin as prescribed. 2. Insomnia, unspecified type - ICD9: 780.52, ICD10: G47.00 - Continue with Restoril 15 mg at bedtime. 3. Arthritis of both knees - ICD9: 716.96, ICD10: M17.0 - Continue with Levaquin as prescribed by orthopedics. - Keep scheduled appointments with specialist. - COMP METABOLIC PANEL 4. Vitamin D deficiency - ICD9: 268.9, ICD10: E55.9 - Continue with Vit D. - VITAMIN D 25 HYDROXY 5. Screening for diabetes mellitus - ICD9: V77.1, ICD10: Z13.1 - HGB A1C 6. Screening cholesterol level - ICD9: V77.91, ICD10: Z13.220 - LIPID PANEL BASIC Follow-up in 6 months or sooner as needed. Discussed treatment plan and patient voices understanding. Patient's questions answered appropriately. Medications and potential side effects were discussed and patient voices understanding. Bronwyn Solo APRN.SUPERVISOR [employer] This note was partially generated using [employer] recognition system. Note was reviewed for accuracy. There may be minor misspellings or grammar miscues with [employer] voice recognition. documented in this encounterMer[facility] Miscellaneous Notes* Telephone Encounter - Nyla Sarkar RN - 09/09/2021 4:39 PM EDT Patient returned call and given provider's message below and patient verbalized understanding. Judy Sarkar RN * Telephone Encounter - Dhara Damon Ma - 09/09/2021 4:32 PM EDT Called and left message on patients voicemail to return call to the office and ask to speak with a FM triage nurse. Let pt know that this is ready for nut picker at [facility]. Dhara Damon Ma * Telephone Encounter - Dhara Damon Ma - 09/09/2021 3:50 PM EDT On PCP desk to sign. Dhara Damon Ma * Telephone Encounter - Ty Narayanan MD - 09/09/2021 2:57 PM EDT Letter printed Ty Narayanan MD * Telephone Encounter - Amelia Zayas LPN - 09/09/2021 2:40 PM EDT Pt calls states needs new handicap parking script . She states call when completed at will come nut picker. Letter is pending if your agreeable. documented in this encounterMer[facility]04[facility] History of Present illness Narrative* Ty Narayanan MD - 06/21/2021 10:40 AM EDT Chief Complaint Patient presents with: 6 Month Exam HPI Megha Cifuentes is a 60 year old female who presents here today for a 6 mo f/u. Pt here today for a 6 month follow up. Pt previously established with this office, formerly seen byDr. Crowder. Depression: Stable on current regimen of Prozac 20 mg once daily and Wellbutrin XL 300 mg once daily. She admits to forgetting to take the medications. Is working on getting a daily pill box to help her remember. Insomnia: On current regimen of Restoril 15 mg 1 caps at bedtime prn. OA: Chronic. On current regimen of Motril 800 mg 1 tab po every 8 hours prn. Also can take [id number] mg prn. Taking Levaquin daily for chronic right knee infection; will be on for life. Follows with Colin Hernandez. Vitamin D Deficiency: is taking Vitamin D3 50,000 international unit(s) weekly, but admits she forgets to take them. Past medical history, appointments, medications, allergies reviewed. Previous Medical History PAST MEDICAL HISTORY Diagnosis Date Abdominal pain, other specified site Depression Diarrhea Fracture, fibula 04/21/2015 mildly displaced spiral right fibula GERD (gastroesophageal reflux disease) Hip arthritis 01/08/2011 Lumbar degenerative disc disease 01/06/2012 Major depressive disorder, recurrent episode, moderate (HCC) 01/18/2019 Tennis elbow Venous insufficiency of both lower extremities 11/12/2016 Venous stasis dermatitis of right lower extremity 11/12/2016 Previous Surgical History PAST SURGICAL HISTORY Procedure Laterality Date ARTHRP ACETBLR/PROX FEM PROSTC AGRFT/ALGRFT Right 06/28/2012 ARTHRP ACETBLR/PROX FEM PROSTC AGRFT/ALGRFT Left 08/28/2012 ARTHRP KNE CONDYLE&PLATU MEDIAL&LAT COMPARTMENTS Bilateral 08/2013 DELIVERY ONLY x2 LIG/TRNSXJ FLP TUBE ABDL/VAG APPR UNI/BI Tubal ligation MAMM DIAG UNI 02/20/2009 PAST SURGICAL HISTORY OF 07/28 hernia repair PICC LINE INSERT/CONSULT 05/15/2014 S $ KNEE REVISION Right 07/2014 Family History FAMILY HISTORY Problem Relation Age of Onset Coronary Artery Disease Father age 67 [place] Mother Patient Allergies ALLERGIES No Known Allergies Current Medications Current Outpatient Medications on File Prior to Visit Medication Sig ibuprofen (MOTRIN) 800 mg tablet Take 1 tablet by mouth every 8 hours as needed for pain. Take withfood. Do not take the same day as you take naproxen temazepam (RESTORIL) 15 mg TAKE 1 CAPSULE BY MOUTH AT BEDTIME NEEDED FOR 30 DAYS naproxen (NAPROSYN) 500 mg tablet TAKE ONE TABLET BY MOUTH TWICE DAILY WITH FOOD NEEDED FOR PAINAND INFLAMMATION cholecalciferol, Vitamin D3, (VITAMIN D3) 1,250 mcg (50,000 unit) cap capsule Take 1 capsule by mouth one time a week for 4 doses. FLUoxetine (PROZAC) 20 mg capsule Take 1 capsule by mouth once daily. buPROPion XL (WELLBUTRIN XL) 300 mg 24 hr tablet Take 1 tablet by mouth once daily. levoFLOXacin (LEVAQUIN) 500 mg tablet Take 500 mg by mouth once daily. megestrol (MEGACE) 20 mg tablet Take 1 tablet (20 mg) by mouth once daily. (Patient not taking: Reported on 04/17/2020 ) COMPOUNDED PRESCRIPTION [facility] E0651/Segmental Compressor [facility] E067/ Leg Appliance Dx: Lymphedema I89.0 Right Lower Extremity Lifetime Usage amoxicillin (POLYMOX, AMOXIL) 500 mg capsule 4 capsules before dental work No current facility-administered medications on file prior to visit. Social History Social History Tobacco Use Smoking status: Never Smoker Smokeless tobacco: Never Used Substance Use Topics Alcohol use: No Drug use: No EXAM: BP 140/90 Pulse 74 Resp 16 Wt (!) 159.4 kg (351 lb 6.4 oz) LMP 06/04/2018 (Approximate) BMI 51.46 kg/m General Appearance: Well appearing, alert, in no acute distress, well-hydrated, well nourished. andMorbidly obese. Lungs: Lungs clear to auscultation. No wheezing, rhonchi, rales.. Heart: RRR without murmur, gallop, or rubs. No ectopy. Health Maintenance List COVID-19 VACCINE(1) Never done SHINGRIX VACCINE(1 of 2) Never done MAMMOGRAM due on 12/30/2017 COLORECTAL CANCER SCREENING due on 06/24/2018 INFLUENZA(1) due on 11/21/2020 DIABETES SCREEN due on 11/07/2023 PAP TESTING due on 12/15/2023 HPV TESTING due on 12/15/2023 LIPID SCREEN due on 11/06/2025 DTAP,TDAP,TD(2 - Td or Tdap) due on 01/12/2031 MENINGOCOCCAL CONJUGATE Aged Out HEPATITIS C SCREENING Discontinued HIV SCREENING Discontinued Data reviewed none ASSESSMENT/PLAN: 1. Major depressive disorder, recurrent episode, moderate (HCC) - ICD9: 296.32, ICD10: F33.1 (primary diagnosis) Continue current medications. 2. Insomnia, unspecified type - ICD9: 780.52, ICD10: G47.00 Continue current medications. - TEMAZEPAM 15 MG CAPSULE 3. Arthritis of both knees - ICD9: 716.96, ICD10: M17.0 Follow with Ortho Follow up in 6 months I agree with the Chief Complaint, ROS, and Past Histories independently gathered by the clinical product support manager and the remaining scribed note accurately describes my personal service to the patient. Medical Decision Making: Problems: Moderate: 2+ stable chronic illnesses Risk: Moderate: Drug management Medical Decision Making Level: 4 - Moderate Ty Narayanan MD The documentation for this note was completed by Maria A Wilson Ma acting as scribe for Ty Narayanan MD. June 21, 2021 10:42 AM. Maria A Wilson Ma documented in this encounterMercy [facility]02[facility] History of Past illness Narrative* Problem Noted Date Resolved Date Situational depression 04/28/2017 0 Pain disorder with psychological component 12/3011/12/2016 Reactive depression 07/10/2015 04/20/2019 Postmenopausal bleeding 02/06/2015 04/20/19 20 S/P total knee replacement 05/01/201410/03 Premenopausal menorrhagia 12/30/20122014 Hip arthritis 01/08/2011 02/06/2015 Ventral hernia, recurrent 12/25/20082014 LATERAL EPICONDYLITIS 09/19/2008 09/28/2014 Adjustment disorder with depressed mood 04/24/19 09 04/20/2019 Carpal tunnel syndrome 03/10/2008 0 Ventral hernia, unspecified, without mention of obstruction or gangrene 08/27/2007 06/15/2008 Diarrhea 11/21/2015 documented as of this encounter (statuses as of 06/21/2021) [facility] History of Past illness Narrative* Problem Noted Date Resolved Date Situational depression 04/28/2017 0 Pain disorder with psychological component 12/3011/12/2016 Reactive depression 07/10/2015 04/20/2019 Postmenopausal bleeding 02/06/2015 04/20/19 20 S/P total knee replacement 05/01/201410/03 Premenopausal menorrhagia 12/30/20122014 Hip arthritis 01/08/2011 02/06/2015 Ventral hernia, recurrent 12/25/20082014 LATERAL EPICONDYLITIS 09/19/2008 09/28/2014 Adjustment disorder with depressed mood 04/24/19 09 04/20/2019 Carpal tunnel syndrome 03/10/2008 0 Ventral hernia, unspecified, without mention of obstruction or gangrene 08/27/2007 06/15/2008 Diarrhea 11/21/2015 documented as of this encounter (statuses as of 09/09/2021) [facility] History of Past illness Narrative* Problem Noted Date Resolved Date Situational depression 04/28/2017 0 Pain disorder with psychological component 12/3011/12/2016 Reactive depression 07/10/2015 04/20/2019 Postmenopausal bleeding 02/06/2015 04/20/19 20 S/P total knee replacement 05/01/201410/03 Premenopausal menorrhagia 12/30/20122014 Hip arthritis 01/08/2011 02/06/2015 Ventral hernia, recurrent 12/25/20082014 LATERAL EPICONDYLITIS 09/19/2008 09/28/2014 Adjustment disorder with depressed mood 04/24/19 09 04/20/2019 Carpal tunnel syndrome 03/10/2008 0 Ventral hernia, unspecified, without mention of obstruction or gangrene 08/27/2007 06/15/2008 Diarrhea 11/21/2015 documented as of this encounter (statuses as of 01/16/2022) [facility] of Past illness Narrative* Problem Noted Date Resolved Date Situational depression 04/28/2017 0 Pain disorder with psychological component 12/3011/12/2016 Reactive depression 07/10/2015 04/20/2019 Postmenopausal bleeding 02/06/2015 04/20/19 20 S/P total knee replacement 05/01/201410/03 Premenopausal menorrhagia 12/30/20122014 Hip arthritis 01/08/2011 02/06/2015 Ventral hernia, recurrent 12/25/20082014 LATERAL EPICONDYLITIS 09/19/2008 09/28/2014 Adjustment disorder with depressed mood 04/24/19 09 04/20/2019 Carpal tunnel syndrome 03/10/2008 0 Ventral hernia, unspecified, without mention of obstruction or gangrene 08/27/2007 06/15/2008 Diarrhea 11/21/2015 documented as of this encounter (statuses as of 01/24/2022) [facility] of Past illness Narrative* Problem Noted Date Resolved Date Situational depression 04/28/2017 0 Pain disorder with psychological component 12/3011/12/2016 Reactive depression 07/10/2015 04/20/2019 Postmenopausal bleeding 02/06/2015 04/20/19 20 S/P total knee replacement 05/01/201410/03 Premenopausal menorrhagia 12/30/20122014 Hip arthritis 01/08/2011 02/06/2015 Ventral hernia, recurrent 12/25/20082014 LATERAL EPICONDYLITIS 09/19/2008 09/28/2014 Adjustment disorder with depressed mood 04/24/19 09 04/20/2019 Carpal tunnel syndrome 03/10/2008 0 Ventral hernia, unspecified, without mention of obstruction or gangrene 08/27/2007 06/15/2008 Diarrhea 11/21/2015 documented as of this encounter (statuses as of 02/11/2022) [facility] of Past illness Narrative* Problem Noted Date Resolved Date Situational depression 04/28/2017 0 Pain disorder with psychological component 12/3011/12/2016 Reactive depression 07/10/2015 04/20/2019 Postmenopausal bleeding 02/06/2015 04/20/19 20 S/P total knee replacement 05/01/201410/03 Premenopausal menorrhagia 12/30/20122014 Hip arthritis 01/08/2011 02/06/2015 Ventral hernia, recurrent 12/25/20082014 LATERAL EPICONDYLITIS 09/19/2008 09/28/2014 Adjustment disorder with depressed mood 04/24/19 09 04/20/2019 Carpal tunnel syndrome 03/10/2008 0 Ventral hernia, unspecified, without mention of obstruction or gangrene 08/27/2007 06/15/2008 Diarrhea 11/21/2015 documented as of this encounter (statuses as of 03/28/2022) [facility] of Past illness Narrative* Problem Noted Date Resolved Date Situational depression 04/28/2017 0 Pain disorder with psychological component 12/3011/12/2016 Reactive depression 07/10/2015 04/20/2019 Postmenopausal bleeding 02/06/2015 04/20/19 20 S/P total knee replacement 05/01/201410/03 Premenopausal menorrhagia 12/30/20122014 Hip arthritis 01/08/2011 02/06/2015 Ventral hernia, recurrent 12/25/20082014 LATERAL EPICONDYLITIS 09/19/2008 09/28/2014 Adjustment disorder with depressed mood 04/24/1904/20/2019 Carpal tunnel syndrome 03/10/2008 0 Ventral hernia, unspecified, without mention of obstruction or gangrene 08/27/2007 06/15/2008 Diarrhea 11/21/2015 documented as of this encounter (statuses as of 06/12/2022) [facility] of Past illness Narrative* Problem Noted Date Resolved Date Situational depression 04/28/2017 0 Pain disorder with psychological component 12/3011/12/2016 Reactive depression 07/10/2015 04/20/2019 Postmenopausal bleeding 02/06/2015 04/20/19 20 S/P total knee replacement 05/01/201410/03 Premenopausal menorrhagia 12/30/20122014 Hip arthritis 01/08/2011 02/06/2015 Ventral hernia, recurrent 12/25/20082014 LATERAL EPICONDYLITIS 09/19/2008 09/28/2014 Adjustment disorder with depressed mood 04/24/19 09 04/20/2019 Carpal tunnel syndrome 03/10/2008 0 Ventral hernia, unspecified, without mention of obstruction or gangrene 08/27/2007 06/15/2008 Diarrhea 11/21/2015 documented as of this encounter (statuses as of 07/04/2022) [facility] of Past illness Narrative* Problem Noted Date Resolved Date Situational depression 04/28/2017 0 Pain disorder with psychological component 12/3011/12/2016 Reactive depression 07/10/2015 04/20/2019 Postmenopausal bleeding 02/06/2015 04/20/19 20 S/P total knee replacement 05/01/201410/03 Premenopausal menorrhagia 12/30/20122014 Hip arthritis 01/08/2011 02/06/2015 Ventral hernia, recurrent 12/25/20082014 LATERAL EPICONDYLITIS 09/19/2008 09/28/2014 Adjustment disorder with depressed mood 04/24/19 09 04/20/2019 Carpal tunnel syndrome 03/10/2008 0 Ventral hernia, unspecified, without mention of obstruction or gangrene 08/27/2007 06/15/2008 Diarrhea 11/21/2015 documented as of this encounter (statuses as of 07/25/2022) [facility] of Past illness Narrative* Problem Noted Date Resolved Date Situational depression 04/28/2017 0 Pain disorder with psychological component 12/3011/12/2016 Reactive depression 07/10/2015 04/20/2019 Postmenopausal bleeding 02/06/2015 04/20/19 20 S/P total knee replacement 05/01/201410/03 Premenopausal menorrhagia 12/30/20122014 Hip arthritis 01/08/2011 02/06/2015 Ventral hernia, recurrent 12/25/20082014 LATERAL EPICONDYLITIS 09/19/2008 09/28/2014 Adjustment disorder with depressed mood 04/24/19 09 04/20/2019 Carpal tunnel syndrome 03/10/2008 0 Ventral hernia, unspecified, without mention of obstruction or gangrene 08/27/2007 06/15/2008 Diarrhea 11/21/2015 documented as of this encounter (statuses as of 07/29/2022) [facility] of [facility] illness Narrative* Problem Noted Date Resolved Date Situational depression 04/28/2017 0 Pain disorder with psychological component 12/3011/12/2016 Reactive depression 07/10/2015 04/20/2019 Postmenopausal bleeding 02/06/2015 04/20/19 20 S/P total knee replacement 05/01/201410/03 Premenopausal menorrhagia 12/30/20122014 Hip arthritis 01/08/2011 02/06/2015 Ventral hernia, recurrent 12/25/20082014 LATERAL EPICONDYLITIS 09/19/2008 09/28/2014 Adjustment disorder with depressed mood 04/24/19 09 04/20/2019 Carpal tunnel syndrome 03/10/2008 0 Ventral hernia, unspecified, without mention of obstruction or gangrene 08/27/2007 06/15/2008 Diarrhea 11/21/2015 documented as of this encounter (statuses as of 08/22/2022) [facility] of [facility] illness Narrative* Problem Noted Date Resolved Date Situational depression 04/28/2017 0 Pain disorder with psychological component 12/3011/12/2016 Reactive depression 07/10/2015 04/20/2019 Postmenopausal bleeding 02/06/2015 04/20/19 20 S/P total knee replacement 05/01/201410/03 Premenopausal menorrhagia 12/30/20122014 Hip arthritis 01/08/2011 02/06/2015 Ventral hernia, recurrent 12/25/20082014 LATERAL EPICONDYLITIS 09/19/2008 09/28/2014 Adjustment disorder with depressed mood 04/24/19 09 04/20/2019 Carpal tunnel syndrome 03/10/2008 0 Ventral hernia, unspecified, without mention of obstruction or gangrene 08/27/2007 06/15/2008 Diarrhea 11/21/2015 documented as of this encounter (statuses as of 09/05/2022) [facility] of [facility] illness Narrative* Problem Noted Date Resolved Date Situational depression 04/28/2017 0 Pain disorder with psychological component 12/3011/12/2016 Reactive depression 07/10/2015 04/20/2019 Postmenopausal bleeding 02/06/2015 04/20/19 20 S/P total knee replacement 05/01/201410/03 Premenopausal menorrhagia 12/30/20122014 Hip arthritis 01/08/2011 02/06/2015 Ventral hernia, recurrent 12/25/20082014 LATERAL EPICONDYLITIS 09/19/2008 09/28/2014 Adjustment disorder with depressed mood 04/24/19 09 04/20/2019 Carpal tunnel syndrome 03/10/2008 0 Ventral hernia, unspecified, without mention of obstruction or gangrene 08/27/2007 06/15/2008 Diarrhea 11/21/2015 documented as of this encounter (statuses as of 09/09/2022) [facility] of [facility] illness Narrative* Problem Noted Date Resolved Date Situational depression 04/28/2017 0 Pain disorder with psychological component 12/3011/12/2016 Reactive depression 07/10/2015 04/20/2019 Postmenopausal bleeding 02/06/2015 04/20/19 20 S/P total knee replacement 05/01/201410/03 Premenopausal menorrhagia 12/30/20122014 Hip arthritis 01/08/2011 02/06/2015 Ventral hernia, recurrent 12/25/20082014 LATERAL EPICONDYLITIS 09/19/2008 09/28/2014 Adjustment disorder with depressed mood 04/24/19 09 04/20/2019 Carpal tunnel syndrome 03/10/2008 0 Ventral hernia, unspecified, without mention of obstruction or gangrene 08/27/2007 06/15/2008 Diarrhea 11/21/2015 documented as of this encounter (statuses as of 09/15/2022) [facility] of [facility] illness Narrative* Problem Noted Date Resolved Date Situational depression 04/28/2017 0 Pain disorder with psychological component 12/3011/12/2016 Reactive depression 07/10/2015 04/20/2019 Postmenopausal bleeding 02/06/2015 04/20/19 20 S/P total knee replacement 05/01/201410/03 Premenopausal menorrhagia 12/30/20122014 Hip arthritis 01/08/2011 02/06/2015 Ventral hernia, recurrent 12/25/20082014 LATERAL EPICONDYLITIS 09/19/2008 09/28/2014 Adjustment disorder with depressed mood 04/24/19 09 04/20/2019 Carpal tunnel syndrome 03/10/2008 0 Ventral hernia, unspecified, without mention of obstruction or gangrene 08/27/2007 06/15/2008 Diarrhea 11/21/2015 documented as of this encounter (statuses as of 09/24/2022) [facility]2018 History of Past illness Narrative* Problem Noted Date Diagnosed Date Resolved Date Situational depression 04/28/201704/20 Pain disorder with psychological component 12/31/2015 11/12/2016 Reactive depression 07/10/2015 04/20/19 20 Postmenopausal bleeding 02/06/201503/24 S/P total knee replacement 05/01/2014 0 10/03/2014 Premenopausal menorrhagia 12/30/2012 Hip arthritis 01/08/2011 02/06/2015 Ventral hernia, recurrent 12/25/2008 LATERAL EPICONDYLITIS 09/19/20082014 Adjustment disorder with depressed mood 04/24/2008 04/20/2019 Carpal tunnel syndrome 03/10/200804/20 Ventral hernia, unspecified, without mention of obstruction or gangrene 08/27/2007 06/15/2008 Diarrhea 11/21/2015 documented as of this encounter (statuses as of 11/01/2022) [facility] History of Past illness Narrative* Problem Noted Date Diagnosed Date Resolved Date Situational depression 04/28/201704/20 Pain disorder with psychological component 12/31/2015 11/12/2016 Reactive depression 07/10/2015 04/20/19 20 Postmenopausal bleeding 02/06/201503/24 S/P total knee replacement 05/01/2014 0 10/03/2014 Premenopausal menorrhagia 12/30/2012 Hip arthritis 01/08/2011 02/06/2015 Ventral hernia, recurrent 12/25/2008 LATERAL EPICONDYLITIS 09/19/20082014 Adjustment disorder with depressed mood 04/24/2008 04/20/2019 Carpal tunnel syndrome 03/10/200804/20 Ventral hernia, unspecified, without mention of obstruction or gangrene 08/27/2007 06/15/2008 Diarrhea 11/21/2015 documented as of this encounter (statuses as of 11/05/2022) [facility] History of Past illness Narrative* Problem Noted Date Diagnosed Date Resolved Date Situational depression 04/28/201704/20 Pain disorder with psychological component 12/31/2015 11/12/2016 Reactive depression 07/10/2015 04/20/19 20 Postmenopausal bleeding 02/06/201503/24 S/P total knee replacement 05/01/2014 0 10/03/2014 Premenopausal menorrhagia 12/30/2012 Hip arthritis 01/08/2011 02/06/2015 Ventral hernia, recurrent 12/25/2008 LATERAL EPICONDYLITIS 09/19/20082014 Adjustment disorder with depressed mood 04/24/2008 04/20/2019 Carpal tunnel syndrome 03/10/200804/20 Ventral hernia, unspecified, without mention of obstruction or gangrene 08/27/2007 06/15/2008 Diarrhea 11/21/2015 documented as of this encounter (statuses as of 01/15/2023) [facility] History of Past illness Narrative* Problem Noted Date Diagnosed Date Resolved Date Situational depression 04/28/201704/20 Pain disorder with psychological component 12/31/2015 11/12/2016 Reactive depression 07/10/2015 04/20/19 20 Postmenopausal bleeding 02/06/201503/24 S/P total knee replacement 05/01/2014 0 10/03/2014 Premenopausal menorrhagia 12/30/2012 Hip arthritis 01/08/2011 02/06/2015 Ventral hernia, recurrent 12/25/2008 LATERAL EPICONDYLITIS 09/19/20082014 Adjustment disorder with depressed mood 04/24/2008 04/20/2019 Carpal tunnel syndrome 03/10/200804/20 Ventral hernia, unspecified, without mention of obstruction or gangrene 08/27/2007 06/15/2008 Diarrhea 11/21/2015 documented as of this encounter (statuses as of 01/19/2023) [facility] History of Past illness Narrative* Problem Noted Date Diagnosed Date Resolved Date Situational depression 04/28/201704/20 Pain disorder with psychological component 12/31/2015 11/12/2016 Reactive depression 07/10/2015 04/20/19 20 Postmenopausal bleeding 02/06/201503/24 S/P total knee replacement 05/01/2014 0 10/03/2014 Premenopausal menorrhagia 12/30/2012 Hip arthritis 01/08/2011 02/06/2015 Ventral hernia, recurrent 12/25/2008 LATERAL EPICONDYLITIS 09/19/20082014 Adjustment disorder with depressed mood 04/24/2008 04/20/2019 Carpal tunnel syndrome 03/10/200804/20 Ventral hernia, unspecified, without mention of obstruction or gangrene 08/27/2007 06/15/2008 Diarrhea 11/21/2015 documented as of this encounter (statuses as of 01/29/2023) [facility] History of Past illness Narrative* Problem Noted Date Diagnosed Date Resolved Date Situational depression 04/28/201704/20 Pain disorder with psychological component 12/31/2015 11/12/2016 Reactive depression 07/10/2015 04/20/19 20 Postmenopausal bleeding 02/06/201503/24 S/P total knee replacement 05/01/2014 0 10/03/2014 Premenopausal menorrhagia 12/30/2012 Hip arthritis 01/08/2011 02/06/2015 Ventral hernia, recurrent 12/25/2008 LATERAL EPICONDYLITIS 09/19/20082014 Adjustment disorder with depressed mood 04/24/2008 04/20/2019 Carpal tunnel syndrome 03/10/200804/20 Ventral hernia, unspecified, without mention of obstruction or gangrene 08/27/2007 06/15/2008 Diarrhea 11/21/2015 documented as of this encounter (statuses as of 02/17/2023) [facility] Diagnosis Major depressive disorder, recurrent episode, moderate (HCC)- Primary Major depressive disorder, recurrent episode, moderate Insomnia, unspecified type Arthritis of both knees Unspecified arthropathy, lower leg documented in this encounter [facility] noteNo assessment information availableWCleveland Clinic [facility] Work Phone: Evaluation note* Diagnosis Major depressive disorder, recurrent episode, moderate (HCC)- Primary Major depressive disorder, recurrent episode, moderate Insomnia, unspecified type Arthritis of both knees Unspecified arthropathy, lower leg Vitamin D deficiency Unspecified vitamin D deficiency Screening for diabetes mellitus Screening cholesterol level Screening for lipoid disorders documented in this encounter [facility] note* Diagnosis Insomnia, unspecified type documented in this encounter [facility] note* Diagnosis Onset Date Resolution Status DDD (degenerative disc disease), lumbar acute DDD (degenerative disc disease), lumbosacral acute DDD (degenerative disc disease), lumbar acute DDD (degenerative disc disease), lumbosacral acute Lower back pain acute [facility] Work Phone: evaluation note* Diagnosis Insomnia, unspecified type documented in this encounter [facility] note* Diagnosis PMB (postmenopausal bleeding)- Primary Postmenopausal bleeding Endometrial hyperplasia Endometrial hyperplasia, unspecified Class 3 severe obesity with body mass index (BMI) of 50.0 to 59.9 in adult, unspecified obesity type, unspecified whether serious comorbidity present (HCC) documented in this encounter [facility] note* Diagnosis PMB (postmenopausal bleeding) Postmenopausal bleeding documented in this encounter [facility] note* Diagnosis PMB (postmenopausal bleeding)- Primary Postmenopausal bleeding Endometrial polyp Polyp of corpus uteri Endometrial hyperplasia Endometrial hyperplasia, unspecified documented in this encounter [facility] note* Diagnosis Encounter for screening mammogram for breast cancer documented in this encounter [facility] note* Diagnosis PMB (postmenopausal bleeding)- Primary Postmenopausal bleeding Endometrial polyp Polyp of corpus uteri documented in this encounter [facility] note* Diagnosis Endometrial hyperplasia- Primary Endometrial hyperplasia, unspecified documented in this encounter [facility] note* Diagnosis Endometrial hyperplasia Endometrial hyperplasia, unspecified documented in this encounter [facility] note* Diagnosis Insomnia, unspecified type documented in this encounter [facility] note* Diagnosis Encounter for screening mammogram for breast cancer documented in this encounter [facility] note* Diagnosis Insomnia, unspecified type documented in this encounter [facility] note* Diagnosis Endometrial hyperplasia Endometrial hyperplasia, unspecified [facility] Diagnosis Endometrial hyperplasia Endometrial hyperplasia, unspecified documented in this encounter [facility]* Diagnosis Insomnia, unspecified type documented in this encounter [facility] note* Diagnosis Degeneration of intervertebral disc of lumbar region with discogenic back pain- Primary Insomnia, unspecified type documented in this encounter [facility] note* Diagnosis Medicare annual wellness visit, subsequent- Primary Routine general medical examination at a health care facility Cellulitis of right lower extremity Cellulitis and abscess of leg, except foot Fatigue, unspecified type Iron deficiency anemia due to chronic blood loss Iron deficiency anemia secondary to blood loss (chronic) Situational stress Other psychological or physical stress, not elsewhere classified Major depressive disorder, recurrent episode, moderate (HCC) Major depressive disorder, recurrent episode, moderate Hyperlipidemia LDL goal <100 Other and unspecified hyperlipidemia Insomnia, unspecified type [place] on CPAP Obstructive sleep apnea (adult) (pediatric) Vitamin D deficiency Unspecified vitamin D deficiency Degeneration of intervertebral disc of lumbar region with discogenic back pain Encounter for screening mammogram for breast cancer Screening for colon cancer Special screening for malignant neoplasms, colon Women's annual routine gynecological examination Encounter for screening examination for other mental health and behavioral disorders [facility] Additional Instructions Im[facility] Used?: [facility] Work Phone: Hospital Discharge instructionsAdditional Instructions Take the antibiotic 4 times a day for 5 days as prescribed. Please follow-up with the wound care center soon as possible. Your evaluation in the Emergency Department did not reveal any acute reason for admission. However, I want to emphasize that you may be early in the course of a disease process or illness even if it is not present. For this reason you should follow- up within 24 hours for reevaluation with either your primary care physician or if necessary back here in the Emergency Department. You should return to the Emergency Department immediately if your symptoms worsen or new symptoms develop.[facility] Work Phone: Reason for referral (narrative)* Outpatient Procedure (Routine) - Pending Review Specialty Diagnoses / Procedures Referred By June t Referred To Contact [facility] Diagnoses PMB (postmenopausal bleeding) Procedures ENDOMETRIAL BIOPSY ENDOMETRIAL BX W/WO ENDOCERVIX BX W/O DILAT SPX Linda Rodriguez MD [address] [place] [address] [facility] [address] [place] [address] Referral ID Status Reason Start Date Expiration Date Visits Requested Visits Authorized [id number] Pending Review Auto-Generat ed Referral 07/04/2022 07/04/2023 1 1 * Diagnostic Procedure Only (Routine) - Pending Review Specialty Diagnoses / Procedures Referred By Contac t Referred To Contact [facility] Diagnoses PMB (postmenopausal bleeding) Procedures PELVIC US [facility] US PELVIC NONOBSTETRIC REAL-TIME IMAGE COMPLETE Linda Rodriguez MD [address] [place] [address] [facility] [address] [place] [address] Referral ID Status Reason Start Date Expiration Date Visits Requested Visits Authorized [id number] Pending Review Auto-Generat ed Referral 07/04/2022 07/04/2023 1 1 [facility] for referral (narrative)* Diagnostic Procedure Only (Routine) - Pending Review Specialty Diagnoses / Procedures Referred By June t Referred To Contact [facility] Diagnoses Encounter for screening mammogram for breast cancer Procedures LEONIE SCREENING SCREENING MAMMOGRAPHY BI 2-VIEW BREAST INC CAD Ty Narayanan MD [address] [place] [address] [facility] [address] [place] [address] Referral ID Status Reason Start Date Expiration Date Visits Requested Visits Authorized [id number] Pending Review Auto-Generat ed Referral 09/10/2022 10/10/2023 [address] [facility] ([facility] Diagnostic Procedure Only (Routine) - Pending Review Specialty Diagnoses / Procedures Referred By June t Referred To Contact [facility] Diagnoses Encounter for screening mammogram for breast cancer Procedures LEONIE SCREENING SCREENING MAMMOGRAPHY BI 2-VIEW BREAST INC CAD Ty Narayanan MD [address] [place] [address] [facility] [address] [place] [address] Referral ID Status Reason Start Date Expiration Date Visits Requested Visits Authorized [id number] Pending Review Auto-Generat ed Referral 08/19/2023 09/17/2024 1 1 [facility] for referral (narrative)No reason for referral information availableWCleveland Clinic [facility] Work Phone: Summary Purpose Family History No Family History Records Found Relationship Condition Age at Onset Recorded Date/T franklin Unknown Family History?- Unknown August 23 2:07pm Family History?- Unknown August 31, 2018 12:43pm Family History?Heart Disease Unknown August 31, 2018 12:43pm Family History?No pertinent history Unkno wn August 31, 2013 12:22pm Relationship Condition Age at Onset Recorded Date/T franklin father Myocardial infarction Unknown mother Myocardial infarction Unknown Advance Directives No Advanced Directives Records Found Advance Directive Response Recorded Date/ Time Advance Directives No May 01, 2015 5:54pm Living Will No January 02 1:07am Power of Chief Librarian Circulation Department No January 02, 2018 1:07am Advance Directive Response Recorded Date/ Time Advance Directives No May 01, 2015 4:54pm Living Will No January 02 12:07am Power of Chief Librarian Circulation Department No January 02, 2018 12:07am Advance Directive Response Recorded Date/ Time Advance Directives No May 01, 2015 5:54pm Living Will No November 07 10:10am Power of Chief Librarian Circulation Department No November 07 10:10am Advance Directive Response Recorded Date/ Time Do you have a Healthcare Power of Chief Librarian Circulation Department? No November 09, 2024 1:22pm Advance Directives No May 01, 2015 5:54pm Chief Complaint and Reason for Visit Chief Complaint PE NON-DOT DRUG SCRE EN/CCHO lumber spine Rm 5 xray DDD Lumbar pain Reason for Visit DDD (degenerative di sc disease), lumbar DDD (degenerative disc disease), lumbosacral DDD (degenerative disc disease), lumbar DDD (degenerative disc disease), lumbosacral Lower back pain Chief Complaint LILETTA IUD, HYSTERO SCOPY D&C SYMPHION Chief Complaint Admit Date cellulitis November 09, 2024 12 :32pm Reason for Referral Specialty Diagnoses / Procedures Referred By Contac t Referred To Contact Diagnoses Insomnia, unspecified type Ty Narayanan MD [address] [place] [address] Referral ID Status Reason Start Date Expiration Date Visits Re quested Visits Authorized [id number] Closed 1 1 Additional Source Comments INFORMATION SOURCE (unrecogn ized section and content) DATE CREATED AUTHOR 09/14/2017 [facility] DATE CREATED AUTHOR AUTHOR'S ORGANIZ ATION 11/06/2024 [facility] DATE CREATED AUTHOR AUTHOR'S ORGANIZ ATION 11/19/2024 [facility] Source Comments (unrecognize d section and content) In the event this informatio n is protected by the Federal Confidentiality of Alcohol and Drug Abuse Patient Records regulations: The Federal rules restrict any use of the information to criminally investigate or prosecute any alcohol or drug abuse patient.[facility] the event this information is protected by the Federal Confidentiality of Alcohol and Drug Abuse Patient Records regulations: The Federal rules restrict any use of the information to criminally investigate or prosecute any alcohol or drug abuse patient.[facility] the event this information is protected by the Federal Confidentiality of Alcohol and Drug Abuse Patient Records regulations: The Federal rules restrict any use of the information to criminally investigate or prosecute any alcohol or drug abuse patient.[facility] the event this information is protected by the Federal Confidentiality of Alcohol and Drug Abuse Patient Records regulations: The Federal rules restrict any use of the information to criminally investigate or prosecute any alcohol or drug abuse patient.[facility] HospitalIn the event this information is protected by the Federal Confidentiality of Alcohol and Drug Abuse Patient Records regulations: The Federal rules restrict any use of the information to criminally investigate or prosecute any alcohol or drug abuse patient.[facility] HospitalIn the event this information is protected by the Federal Confidentiality of Alcohol and Drug Abuse Patient Records regulations: The Federal rules restrict any use of the information to criminally investigate or prosecute any alcohol or drug abuse patient.[facility] HospitalIn the event this information is protected by the Federal Confidentiality of Alcohol and Drug Abuse Patient Records regulations: The Federal rules restrict any use of the information to criminally investigate or prosecute any alcohol or drug abuse patient.[facility] HospitalIn the event this information is protected by the Federal Confidentiality of Alcohol and Drug Abuse Patient Records regulations: The Federal rules restrict any use of the information to criminally investigate or prosecute any alcohol or drug abuse patient.[facility] HospitalIn the event this information is protected by the Federal Confidentiality of Alcohol and Drug Abuse Patient Records regulations: The Federal rules restrict any use of the information to criminally investigate or prosecute any alcohol or drug abuse patient.[facility] HospitalIn the event this information is protected by the Federal Confidentiality of Alcohol and Drug Abuse Patient Records regulations: The Federal rules restrict any use of the information to criminally investigate or prosecute any alcohol or drug abuse patient.[facility] HospitalIn the event this information is protected by the Federal Confidentiality of Alcohol and Drug Abuse Patient Records regulations: The Federal rules restrict any use of the information to criminally investigate or prosecute any alcohol or drug abuse patient.[facility] HospitalIn the event this information is protected by the Federal Confidentiality of Alcohol and Drug Abuse Patient Records regulations: The Federal rules restrict any use of the information to criminally investigate or prosecute any alcohol or drug abuse patient.[facility] HospitalIn the event this information is protected by the Federal Confidentiality of Alcohol and Drug Abuse Patient Records regulations: The Federal rules restrict any use of the information to criminally investigate or prosecute any alcohol or drug abuse patient.[facility] HospitalIn the event this information is protected by the Federal Confidentiality of Alcohol and Drug Abuse Patient Records regulations: The Federal rules restrict any use of the information to criminally investigate or prosecute any alcohol or drug abuse patient.[facility] HospitalIn the event this information is protected by the Federal Confidentiality of Alcohol and Drug Abuse Patient Records regulations: The Federal rules restrict any use of the information to criminally investigate or prosecute any alcohol or drug abuse patient.[facility]In the event this information is protected by the Federal Confidentiality of Alcohol and Drug Abuse Patient Records regulations: The Federal rules restrict any use of the information to criminally investigate or prosecute any alcohol or drug abuse patient.[facility] HospitalIn the event this information is protected by the Federal Confidentiality of Alcohol and Drug Abuse Patient Records regulations: The Federal rules restrict any use of the information to criminally investigate or prosecute any alcohol or drug abuse patient.[facility] HospitalIn the event this information is protected by the Federal Confidentiality of Alcohol and Drug Abuse Patient Records regulations: The Federal rules restrict any use of the information to criminally investigate or prosecute any alcohol or drug abuse patient.[facility] HospitalIn the event this information is protected by the Federal Confidentiality of Alcohol and Drug Abuse Patient Records regulations: The Federal rules restrict any use of the information to criminally investigate or prosecute any alcohol or drug abuse patient.[facility] HospitalIn the event this information is protected by the Federal Confidentiality of Alcohol and Drug Abuse Patient Records regulations: The Federal rules restrict any use of the information to criminally investigate or prosecute any alcohol or drug abuse patient.[facility] HospitalIn the event this information is protected by the Federal Confidentiality of Alcohol and Drug Abuse Patient Records regulations: The Federal rules restrict any use of the information to criminally investigate or prosecute any alcohol or drug abuse patient.[facility] HospitalIn the event this information is protected by the Federal Confidentiality of Alcohol and Drug Abuse Patient Records regulations: The Federal rules restrict any use of the information to criminally investigate or prosecute any alcohol or drug abuse patient.[facility] HospitalIn the event this information is protected by the Federal Confidentiality of Alcohol and Drug Abuse Patient Records regulations: The Federal rules restrict any use of the information to criminally investigate or prosecute any alcohol or drug abuse patient.[facility] HospitalIn the event this information is protected by the Federal Confidentiality of Alcohol and Drug Abuse Patient Records regulations: The Federal rules restrict any use of the information to criminally investigate or prosecute any alcohol or drug abuse patient.[facility] HospitalIn the event this information is protected by the Federal Confidentiality of Alcohol and Drug Abuse Patient Records regulations: The Federal rules restrict any use of the information to criminally investigate or prosecute any alcohol or drug abuse patient.[facility] HospitalIn the event this information is protected by the Federal Confidentiality of Alcohol and Drug Abuse Patient Records regulations: The Federal rules restrict any use of the information to criminally investigate or prosecute any alcohol or drug abuse patient.[facility] HospitalIn the event this information is protected by the Federal Confidentiality of Alcohol and Drug Abuse Patient Records regulations: The Federal rules restrict any use of the information to criminally investigate or prosecute any alcohol or drug abuse patient.[facility] HospitalIn the event this information is protected by the Federal Confidentiality of Alcohol and Drug Abuse Patient Records regulations: The Federal rules restrict any use of the information to criminally investigate or prosecute any alcohol or drug abuse patient.[facility] HospitalIn the event this information is protected by the Federal Confidentiality of Alcohol and Drug Abuse Patient Records regulations: The Federal rules restrict any use of the information to criminally investigate or prosecute any alcohol or drug abuse patient.[facility] HospitalIn the event this information is protected by the Federal Confidentiality of Alcohol and Drug Abuse Patient Records regulations: The Federal rules restrict any use of the information to criminally investigate or prosecute any alcohol or drug abuse patient.[facility] HospitalIn the event this information is protected by the Federal Confidentiality of Alcohol and Drug Abuse Patient Records regulations: The Federal rules restrict any use of the information to criminally investigate or prosecute any alcohol or drug abuse patient.[facility] HospitalIn the event this information is protected by the Federal Confidentiality of Alcohol and Drug Abuse Patient Records regulations: The Federal rules restrict any use of the information to criminally investigate or prosecute any alcohol or drug abuse patient.[facility] HospitalIn the event this information is protected by the Federal Confidentiality of Alcohol and Drug Abuse Patient Records regulations: The Federal rules restrict any use of the information to criminally investigate or prosecute any alcohol or drug abuse patient.[facility] Reason for Visit (unrecogniz ed section and content) Reason Comments 6 Month Exam Specialty Diagnoses / Procedures Referred By June dempsey Referred To Contact Family Medicine / FAMILY MEDICINE Diagnoses Encounter for follow-up examination after completed treatment for conditions other than malignant neoplasm follow up Procedures 4C EST Self Bronwyn Solo, LUCITA.SUPERVISOR LATHING [address] [place] [id number] Referral ID Status Reason Start Date Expiration Date Visits Requested Visits Authorized [id number] Waiting for Response Financial Clearance Required - OON Payor OON Notification Letter Clearance Not Met - Admin/Excavating Contractor/ Director Advise to Postpone/Resche dule or Not Proceed 01/16/20 22 04/15/2022 1 1 Reason Comments handicap parking script Reason Comments Results Labs Reason Onset Date Comments Refill Request 02/11/2022 Reason Comments Appointment Patient needs to tony l billing about OON INS. She prefers to come to the [place] location. Reason Onset Date Comments Refill Request 06/12/2022 Reason Comments Post Menopausal Bleeding Specialty Diagnoses / Procedures Referred By June dempsey Referred To Contact [facility] Diagnoses anxiety Procedures OFFICE/OUTPATIENT [facility] HIGH MDM 60-74 MINUTES Teressa Collazo APRN.SUPERVISOR LATHING [address] [facility] [place] [phone] Admin [facility] [address] [place] [address] Referral ID Status Reason Start Date Expiration Date V isits Requested Visits Authorized [id number] Closed Financial Clearance Required - OON Payor 06/25/2022 07/10/2022 1 1 Reason Comments RECOVERY ANALYST Ultrasound Specialty Diagnoses / Procedures Referred By June dempsey Referred To Contact REPAIRER HELPER Diagnoses PMB (postmenopausal bleeding) Procedures Evaluation of PMB, possible EMB Linda Rodriguez MD [address] [place] [address] Linda Rodriguez MD [address] [place] [address] Referral ID Status Reason Start Date Expiration Date V isits Requested Visits Authorized [id number] Closed Financial Clearance Required - OON Payor Patient Cleared INN/SMCP Payor Auth Obtained 07/16/2022 08/14/2022 1 1 Reason Comments Schedule Surgery Reason Comments Forms Rx fo pneumatic comp ression device from [employer]. Reason Onset Date Comments Refill Request 09/04/2022 Reason Comments Pre-Op Exam Reason Comments Insurance Authorization Reason Comments Post Menopausal Bleeding Reason Comments AUB Reason Comments Patient Question Reason Comments Appointment Reason Onset Date Comments Refill Request 07/15/2023 Reason Onset Date Comments Refill Request 07/28/2023 Reason Comments Question Reason Comments Patient Question Reason Comments Refill Request Reason Onset Date Comments Refill Request 12/11/2023 Reason Onset Date Comments Refill Request 01/28/2024 Reason Onset Date Comments Refill Request 04/20/2024 Reason Comments Medicare Wellness Exam Specialty Diagnoses / Procedures Referred By June dempsey Referred To Contact FAMILY MEDICINE Diagnoses Encounter for medication review Medication follow up Procedures OFFICE CONSULTATION NEW/ESTAB PATIENT 15 MIN OFFICE/OUTPATIENT ESTABLISHED MOD MDM 30 MIN Bronwyn Solo APRN.SUPERVISOR LATHING [address] [place] [address] Phone: tel: fax: [facility] [place] [address] [place] [address] Phone: tel: Referral ID Status Reason Start Date Expiration Date V isits Requested Visits Authorized [id number] Closed Financial Clearance Required - OON Payor 05/04/2024 03/22/2025 1 1 Reason Comments Patient Update Care Teams (unrecognized sec tion and content) Block Sawyer Relationship Specialty Start Date End Date Ty Narayanan MD [address] [place], [place] [id number] PCP - General Family Practice 10/24/20 Block Sawyer Relationship Specialty Start Date End Date Ty Narayanan MD [address] [place], [place] [id number] PCP - General Family Practice 10/24/20 Block Sawyer Relationship Specialty Start Date End Date Ty Narayanan MD [address] [facility] [place] [address] PCP - General Family Medicine 01/13/22 Block Sawyer Relationship Specialty Start Date End Date Ty Narayanan MD [address] [facility] [place] [address] PCP - General Family Medicine 01/13/22 Block Sawyer Relationship Specialty Start Date End Date Ty Narayanan MD [address] [facility] [place] [address] PCP - General Family Medicine 01/13/22 Block Sawyer Relationship Specialty Start Date End Date Ty Narayanan MD [address] [place] [address] PCP - General Family Medicine 01/13/22 Team Status: Active Member Role Status Dates Dr. Neville Crowder III, MD Family Provider Active Dr. Ty Narayanan MD Primary Care Provider Active Team Status: Inactive Member Role Status Dates Dr. Ty Narayanan MD Primary Care Provider, Referr ing Provider Active Dr. Rafael Morales DO Attending Provider Active Team Status: Inactive Member Role Status Dates Dr. Ty Narayanan MD Primary Care Provider, Referr ing Provider Active Warren WEIR, PA Attending Provider Active Team Status: Inactive Member Role Status Dates Dr. Ty Narayanan MD Primary Care Provider Active Dr. Mark Mon MD Attending Provider Active Team Status: Inactive Member Role Status Dates Dr. Ty Narayanan MD Primary Care Provider Active Dr. Rafael Morales DO Attending Provider Active Block Sawyer Relationship Specialty Start Date End Date Ty Narayanan MD [address] [facility] [place] [address] PCP - General Family Medicine 01/13/22 Block Sawyer Relationship Specialty Start Date End Date Ty Narayanan MD [address] [facility] [place] [address] PCP - General Family Medicine 01/13/22 Block Sawyer Relationship Specialty Start Date End Date Ty Narayanan MD [address] [facility] [place] [address] PCP - General Family Medicine 01/13/22 Block Sawyer Relationship Specialty Start Date End Date Ty Narayanan MD [address] [facility] [place] [address] PCP - General Family Medicine 01/13/22 Block Sawyer Relationship Specialty Start Date End Date Ty Narayanan MD [address] [facility] [place] [address] PCP - General Family Medicine 01/13/22 Block Sawyer Relationship Specialty Start Date End Date Ty Narayanan MD [address] [place] [address] PCP - General Family Medicine 01/13/22 Block Sawyer Relationship Specialty Start Date End Date Ty Narayanan MD [address] [place] [address] PCP - General Family Medicine 01/13/22 Team Status: Inactive Member Role Status Dates Dr. Ty Narayanan MD Primary Care Provider Active Dr. Linda Cherry MD Attending Provider, R eferring Provider Active Block Sawyer Relationship Specialty Start Date End Date Ty Narayanan MD [address] [facility] [place] [address] PCP - General Family Medicine 01/13/22 Block Sawyer Relationship Specialty Start Date End Date Ty Narayanan MD [address] [facility] [place] [address] PCP - General Family Medicine 01/13/22 Block Sawyer Relationship Specialty Start Date End Date Ty Narayanan MD [address] [facility] [place] [address] PCP - General Family Medicine 01/13/22 Block Sawyer Relationship Specialty Start Date End Date Ty Narayanan MD [address] [facility] [place] [address] PCP - General Family Medicine 01/13/22 Block Sawyer Relationship Specialty Start Date End Date Ty Narayanan MD [address] [facility] [place] [address] PCP - General Family Medicine 01/13/22 Block Sawyer Relationship Specialty Start Date End Date Ty Narayanan MD [address] [facility] [place] [address] PCP - General Family Medicine 01/13/22 Block Sawyer Relationship Specialty Start Date End Date Ty Narayanan MD [address] [facility] [place] [address] PCP - General Family Medicine 01/13/22 Block Sawyer Relationship Specialty Start Date End Date Ty Narayanan MD [address] [facility] [place] [address] PCP - General Family Medicine 01/13/22 Block Sawyer Relationship Specialty Start Date End Date Ty Narayanan MD [address] [facility] [place] [address] PCP - General Family Medicine 01/13/22 Block Sawyer Relationship Specialty Start Date End Date Ty Narayanan MD [address] [facility] [place] [address] PCP - General Family Medicine 01/13/22 Block Sawyer Relationship Specialty Start Date End Date Ty Narayanan MD [address] [facility] [place] [address] PCP - General Family Medicine 01/13/22 Bronwyn Solo APRN.SUPERVISOR LATHING [address] [facility] [place] [address] Transportation Department Head Family Medicine 02/28/24 Raghu Nuñez APRN.SUPERVISOR LATHING [address] [facility] [place] [address] Transportation Department Head Family Medicine 03/08/24 Block Sawyer Relationship Specialty Start Date End Date Ty Narayanan MD [address] [facility] [place] [address] PCP - General Family Medicine 01/13/22 Bronwyn Solo APRN.SUPERVISOR LATHING [address] [facility] [place] [address] Transportation Department Head Family Medicine 02/28/24 Raghu Nuñez APRN.SUPERVISOR LATHING [address] [facility] [place] [address] Transportation Department Head Family Medicine 03/08/24 Block Sawyer Relationship Specialty Start Date End Date Ty Narayanan MD [address] [facility] [place] [address] PCP - General Family Medicine 01/13/22 Raghu Nuñez APRN.SUPERVISOR LATHING [address] [facility] [place] [address] Transportation Department Head Family Medicine 03/08/24 Team Status: Active Member Role/Relationship Status Dates Dr. Ty Narayanan MD Primary Care Provider Active Team Status: Inactive Member Role/Relationship Status Dates Dr. Ty Narayanan MD Primary Care Provider Active Start: November 09, 2024 End: November 09, 2024 Dr. Philomena Zhu MD Emergency Provider Active S tart: November 09, 2024 End: November 09, 2024 Goals (unrecognized section and content) Goals may be documented in a n alternate sectionGoals may be documented in an alternate sectionGoals may be documented in an alternate section FOR RECORDS PERTAINING TO PATIENTS WHO ARE OR HAVE BEEN ENROLLED IN A CHEMICAL DEPENDENCY/SUBSTANCEABUSE PROGRAM, SOME INFORMATION MAY BE OMITTED. This clinical summary was aggregated from multiple sources. Caution should be exercised in using it in the provision of clinical care. This summary normalizes information from multiple sources, and as a consequence, information in this document may materially change the coding, format and clinical context of patient data. In addition, data may be omitted in some cases. CLINICAL DECISIONS SHOULD BE BASED ON THE PRIMARY CLINICAL RECORDS. [employer] provides no warranty or guarantee of the accuracy or completeness of information in this document.
== END | disposition home or self-care (01) ==
LOC: LAB 11-19 11:32 → WC 11-19 11:32 → LAB.FUTURE 11-19 11:32
PROVIDERS: PCP Family Medicine; Referring Provider Student in an Organized Health Care Education/Training Program; Visit Provider Surgery Plastic and Reconstructive Surgery
DX: L97.919 Non-pressure chronic ulcer of unspecified part of right lower leg with unspecified severity (principal); R60.0 Localized edema; L03.115 Cellulitis of right lower limb
CPT/HCPCS: 88305; 99214; G0463

== ENCOUNTER 2024-12-20 10:30 | Outpatient (RCR) | payer MEDICARE, SELFPAY ==
[2024-11-22 09:54] VITALS: BP 153/93; PULSE 100; RESP 15; TEMP 36.6
--- NOTE | 2024-11-24 09:13 | WC ---
PHOTO- RIGHT Fannie SHOEMAKER 11/22/24
[2024-11-25 10:55] VITALS: BP 151/79; PULSE 94; RESP 18; TEMP 35.8
--- NOTE | 2024-11-25 12:25 | PCM.WC.HP ---
History of Present Illness Date of Service: 11/22/24 Chief Complaint: Bilateral lower extremity swelling and edema; severe venous stasis dermatitis History of Wound: This is a 63-year-old morbidly obese female who presented with severe swelling and edema in both lower extremities, which has been chronic in nature. 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. 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 She presented with severe swelling, edema, and lymphedema in both lower extremities. Her lower extremities also demonstrate severe, exudative venous stasis dermatitis, hyperpigmentation, and lipodermatosclerosis. The patient claims to sleep on a flat mattress at night. She is not active. She denies a history of thrombophlebitis. Vascular studies have been recently ordered, and yet to be performed. The patient denies a history of diabetes mellitus, myocardial infarction, congestive heart failure, cerebrovascular accident, hypertension, pulmonary disease, renal disease, hyperlipidemia, and thyroid disease. The patient was seen and evaluated in the [facility] on November 09, 2024, at which time a prescription for oral Keflex was issued for lower extremity cellulitis. [facility] Medical History Dependent edema Venous stasis dermatitis of both lower extremities Leg edema, left Leg edema, right Left leg swelling Right leg swelling Lymphedema Chronic venous insufficiency Wears dentures Alcohol use Arthritis Restless legs Injury of head and neck Non-smoker CPAP (continuous positive airway pressure) dependence Sleep apnea History of edema History of pain when walking History of echocardiogram PERIPROSTETIC KNEE INFECTION Home Medications ?Medication ?Instructions ?Recorded ?Last Taken ?Type fluoxetine 20 mg capsule 20 mg PO DAILY mental health 11/22/16 05/25/17 History bupropion HCl 150 mg 24 hr tablet, 150 mg PO DAILY DEPRESSION 01/12/17 05/25/17 History extended release temazepam 15 mg capsule 15 mg PO QHS PRN PRN Sleep 03/27/17 05/25/17 History levofloxacin 500 mg tablet 500 mg PO Q24H 11/07/22 Unknown History naproxen 500 mg tablet mg 11/14/22 11/14/22 06:00 History cephalexin 500 mg capsule 500 mg PO Q6 5 days #24 CAPSULES 11/09/24 Unknown Rx Allergy/AdvReac Type Severity Reaction Status Date / Time No Known Allergies Allergy Verified 11/14/24 09:58 Family History Father Myocardial infarction Mother Myocardial infarction Surgical History History of hernia surgery History of History of arthroplasty of right ankle Status post bilateral hip replacements Status post bilateral knee replacements Social History Smoking Status: Never smoker alcohol intake: never Vital Signs Vital Signs Vital Signs: 11/25/24 10:55 Temperature 96.5 F L Temperature Source Temporal Pulse Rate 94 Respiratory Rate 18 Blood Pressure 151/79 H Blood Pressure Mean 103 Blood Pressure Source Monitor Blood Pressure Position Semi-Fowlers Blood Pressure Location Left Arm Physical Exam Const alert, oriented x3, no apparent distress, no limitations and well nourished Constitutional Narrative: The patient is morbidly obese. Her BMI is 53.1. General Appearance: cooperative, comfortable and well developed Orientation / Consciousness: awake, oriented to person, oriented to place and oriented to time Exam Limitations: no limitations Nutritional Appearance: obese morbidly obese HEENT normocephalic and head/scalp atraumatic Head and Scalp: normal to inspection, normocephalic and atraumatic Face and Sinus: normal facial exam Nose: external nose normal External Ear: external ears normal Eyes EOMs intact bilaterally General Eye: normal appearance of both eyes Neck full ROM Resp normal respiratory effort, normal air movement, no retractions and no use of accessory muscles Effort and Inspection: able to speak in complete sentences Extremity no calf tenderness General Extremity: Negative for clubbing or cyanosis Skin Wound Narrative: Severe swelling, edema, and lymphedema are noted in the patient's lower extremities bilaterally. Venous stasis dermatitis, hyperpigmentation, and lipodermatosclerosis are noted in the gaiter areas bilaterally, more pronounced in the right lower extremity. There is no overt sign of infection or cellulitis. No drainage is noted. Neuro oriented x3, CN's II-XII intact bilaterally, moves all extremities, no focal motor deficits and no sensory deficits noted Sensorium / Orientation: awake, alert, oriented to person, oriented to place and oriented to time Psych Appearance: grossly normal and appropriate Attitude: calm Activity / Motor Behavior: appropriate eye contact Speech: normal speech Mood & Affect: euthymic mood Thought Process: normal thought process Thought Content: normal thought content Attention / Concentration: attention grossly intact Debridement Note Debridement Note No debridement was completed: No debridement was completed today Post-Debridement Measurements and Additional Note: Post-Debridement Measurements/Treatment [facility] Nurse 1 - General Ulcer Assessment Start: 11/22/24 09:35 Freq: Status: Active Protocol: LAXMI Activity Type Activity Date Activity User E-sign Co-sign Detail Recorded Client Recorded Date Recorded By Document 11/22/24 09:54 ML [id number] 11/22/24 10:00 ML Document 11/25/24 10:55 RB [id number] 11/25/24 10:57 RB 11/22/24 11/25/24 09:54 10:55 - Today's Visit Information Type of service Follow-up Visit Nurse-only (Physician/[facility] Visit ) Arrival Mode Ambulatory Ambulatory Transfer Assistance None None Patient Identification Verified (Name & Yes Yes ) Patient Requires Transmission-Based No No Precautions Vital Signs Temperature (97.8 F-99.1 F) 97.9 F 96.5 F L Temperature Source Temporal Temporal Pulse Rate (60-100) 100 94 Pulse Location Monitor Monitor Respiratory Rate (12-18) 15 18 Respiratory rate source Observation Observation Blood Pressure (90/60-120/80) 153/93 H 151/79 H Blood Pressure Mean 113 103 Source Monitor Monitor Position Sitting Semi-Fowlers Blood Pressure Location Left Arm Left Arm History Since Last Visit- (Skip if this is Patient's initial visit) Have you changed medications since your No No last visit? Any new allergies or adverse reactions No No Had a fall/change in ADL's that may No No increase risk of falls Signs or symptoms of abuse and/or No No neglect since last visit Have you been in the hospital since your No No last visit? Has dressing in place as prescribed Yes Yes Has compression in place as prescribed Yes Yes Has offloadiing in place as prescribed No N/A Experienced any changes in pain level or No No management Left Footwear Regular Shoe Right Footwear Regular Shoe Pain Scale: 0-10 Numeric Is Patient Pain Free? Yes Yes [facility] Nurse 1 - General Ulcer Measurement Start: 11/22/24 09:35 Freq: Status: Active Protocol: Activity Type Activity Date Activity User E-sign Co-sign Detail Recorded Client Recorded Date Recorded By Document 11/22/24 09:54 ML [id number] 11/22/24 10:00 ML Document 11/25/24 10:55 RB [id number] 11/25/24 10:57 RB 11/22/24 11/25/24 09:54 10:55 Wound Center Nurse 1 Lower Limb Edema Present Yes Right Calf (cm) 69 69.5 Right Ankle (cm) 41.5 35.2 - Nurse 2 - General Ulcer CM Notes Start: 11/22/24 09:35 Freq: Status: Active Protocol: Activity Type Activity Date Activity User E-sign Co-sign Detail Recorded Client Recorded Date Recorded By Document 11/22/24 10:19 JF [id number] 11/22/24 10:30 JF 11/22/24 10:19 Pain Scale: 0-10 Numeric Is Patient Pain Free? Yes - Nurse 3 - General Ulcer D/C NN Start: 11/22/24 09:35 Freq: Status: Active Protocol: Activity Type Activity Date Activity User E-sign Co-sign Detail Recorded Client Recorded Date Recorded By Document 11/22/24 10:40 ML [id number] 11/22/24 10:43 ML Document 11/25/24 10:55 RB [id number] 11/25/24 10:57 RB 11/22/24 11/25/24 10:40 10:55 Wound Care Center Nurse 3 RIGHT POSTERIOR LE -Ulcer Cleansing Rinsed/ Wound Cleanser Irrigated with Saline -Foul Odor after Cleansing No -Primary Dressing Applied Optilok 8x12 Optilok 6.5x10 -Optilok 6.5x10 1 -Optilok 8x12 1 RLE -Multi-Layered Wrap Application Unna Boot - Unna Boot - Right Right -Unna- Right (Qty applied) 1 1 LLE -Tubular Bandage Single Layer Single Layer -Size of Tubigrip Used Size F Size F -Size F ($) 1 1 Treatment Response Procedure Tolerated Well Pain Scale: 0-10 Numeric Is Patient Pain Free? Yes Yes WC - Visit Discharge Discharge Condition Stable Ambulatory Status Ambulatory Transportation Private Auto Medication Reconcilliation completed & No provided to patient/care provider Clinical Summary of Care Provided Yes Lab / Micro Data Attestation: I reviewed the patient's lab results. Lab results narrative: Laboratory Tests 11/09/24 12:58 WBC 4.0 L Hgb 13.0 Hct 39.9 Plt Count 183 Sodium 137 Potassium 4.4 Chloride 102 Carbon Dioxide 24.6 BUN 8 Creatinine 0.67 L BUN/Creatinine Ratio 11.6 Glucose 99 Calcium 8.6 Charges/Coding Visit Charges Office Visits / Consults: [id number] OV L4 New 45min Assessment/Plan Assessment/Plan (1) Venous stasis dermatitis of both lower extremities: CODE(S): I87.2 - Venous insufficiency (chronic) (peripheral) (2) Chronic venous insufficiency: CODE(S): I87.2 - Venous insufficiency (chronic) (peripheral) (3) Lymphedema: CODE(S): I89.0 - Lymphedema, not elsewhere classified (4) Dependent edema: CODE(S): R60.9 - Edema, unspecified (5) Leg edema, right: CODE(S): R60.0 - Localized edema (6) Leg edema, left: CODE(S): R60.0 - Localized edema (7) Right leg swelling: CODE(S): M79.89 - Other specified soft tissue disorders (8) Left leg swelling: CODE(S): M79.89 - Other specified soft tissue disorders (9) Morbid obesity: CODE(S): E66.01 - Morbid (severe) obesity due to excess calories (10) DDD (degenerative disc disease), lumbosacral: CODE(S): M51.37 - Other intervertebral disc degeneration, lumbosacral region (11) History of cellulitis: CODE(S): Z87.2 - Personal history of diseases of the skin and subcutaneous tissue (12) Osteoarthritis: (13) Status post bilateral knee replacements: CODE(S): Z96.653 - Presence of artificial knee joint, bilateral (14) Status post bilateral hip replacements: CODE(S): Z96.643 - Presence of artificial hip joint, bilateral PLAN: Plan This is a 63-year-old morbidly obese female who presented with severe swelling, edema, lymphedema in her lower extremities, as well as severe venous stasis skin changes in her lower extremities. The right lower extremity is more severely affected. Manifestations include venous stasis dermatitis, hyperpigmentation, and lipodermatosclerosis. Cellulitis is not currently suspected. The patient is not active. 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 The swelling and edema in the patient's lower extremities is chronic in nature, and recently getting worse. A lengthy discussion has been undertaken with the patient regarding the conservative measures appropriate to the management of her lower extremity swelling and edema. Leg elevation has been encouraged. Elevation is to be to heart level, or higher, as much as possible. She has been encouraged to continue sleeping on a flat mattress at night. Her legs are to be elevated during daytime hours as well, as much as possible. Prolonged idle sitting has been discouraged. Activity/ambulation has been encouraged. Weight loss has also been discussed, and arrangements are to be made for the patient to undergo a dietary consultation. Recent laboratory results have been reviewed. Vascular studies have been scheduled, and are due to be performed in the near future. Punch biopsies have been recently obtained, the results of which are pending. We are to implement compression to the lower extremities bilaterally. An Unna compression wrap is to be applied to the right lower extremity, and will be changed twice weekly. A Tubigrip compression sleeve will be applied to the left lower extremity, and will be donned by the patient on a daily basis. The patient is to return in 1 week for reevaluation. Total time: 48 minutes
--- NOTE | 2024-11-29 09:52 | ART_ITS ---
Reason For Study Reason For Study: Right leg ulcer Procedure A bilateral lower extremity continuous wave Doppler with analog waveform analysis,segmental pressures,and ankle brachial indexes without exercise. Left Segmental Pressures Left brachial= 155mmHg. Left posterior tibial artery = 206mmHg. Left dorsalis pedis artery = 222mmHg. Left digit = 118 mmHg. The left dorsalis pedis waveforms are triphasic. The left posterior tibial artery waveforms are triphasic. Right Segmental Pressures Right brachial= 163mmHg. Right posterior tibial artery = >254mmHg. Right dorsalis pedis artery = >254mmHg. Right digit = 126 mmHg. The right dorsalis pedis waveforms are triphasic. The right posterior tibial artery waveforms are triphasic. Indices The right ankle brachial index by the dorsalis pedis is NC. The right ankle brachial index by the posterior tibial artery is NC. The right digital-brachial index is 0.77. The left ankle brachial index by the dorsalis pedis is 1.36. The left ankle brachial index by the posterior tibial artery is 1.26. The left digital-brachial index is 0.72. VL/Lower Ext Art Exam w/o Exercis Interpretation Summary Triphasic Doppler waveforms are noted at ankle level bilaterally. Pulse-volume recordings appear satisfactory at all levels bilaterally. The resting right ankle-brachial index could not be determi kristy due to the non-compressibility of the vasculature at ankle level on the right. The resting left ankle-brachial index is normal. Digital-brachial indices are normal bilaterally. There is evidence of arterial calcification at ankle level on the right. There is no evidence of significant arterial occlusive disease in the lower extremities bilaterally. Ordering Physician: Miguel Angel Vargas Referring Physician: MD Oracio Ryder Performed By: Katie Wynn RVT
--- NOTE | 2024-11-29 09:52 | VDLE_ITS ---
Reason For Study Reason For Study: Right leg ulcer RIGHT LEFT CFV is compressible, spontaneous, phasic, competent CFV is compressible, spontaneous, phasic, competent, and demonstrates normal augmentation. and demonstrates normal augmentation. FV is compressible, spontaneous, phasic, competent FV is compressible, spontaneous, phasic, competent and demonstrates normal augmentation. and demonstrates normal augmentation. FV distal not visualized due to patient body habitus. FV visualized with color only, appears patent. POP V is compressible, phasic, and INCOMPETENT for POP V is compressible, spontaneous, phasic, competent greater than 1.0 second. and demonstrates normal augmentation. T/P Trunk is compressible. T/P Trunk is compressible. PTV is compressible. PTV is compressible. RT PerV is compressible. RT PerV is compressible. Calf vein only visualized at distal calf. Calf vein only visualized at distal calf. SFJ is competent and measures 0.85 cm. SFJ is competent and measures 0.99 cm. GSV proximal thigh measures 0.57 x 0.57 cm. GSV proximal thigh measures 0.59 x 0.61 cm. GSV above knee is competent. GSV at knee measures 0.33 x 0.32 cm. GSV at knee measures 0.35 x 0.32 cm. GSV is competent throughout. GSV below knee is INCOMPETENT for greater than 0.5 SSV mid calf is competent and measures 0.60 cm. seconds. ASV proximal calf is INCOMPETENT for greater than 0.5 seconds and measures 0.40 x 0.44 cm. SSV mid calf is INCOMPETENT for greater than 0.5 seconds and measures 0.62 cm. Procedure This is a venous duplex using B-mode, color flow and spectral Doppler. Exam performed in department. Patient was scanned in reverse Trendelenburg position during reflux assessment. Technically difficult study due to patient body habitus and edema. A preliminary report was called and/or faxed to [facility]. VL/Venous Duplex US - Aguilar Extrem Interpretation Summary Deep veins of the lower extremities are bilaterally patent and compressible seg mentally. There is no evidence of deep vein thrombosis on either side. The distal right femoral vein was not visualize d. The deep veins of the right and left proximal calf were not visualized. The right popliteal vein is incompetent. Darlene vular competence appears intact within the proximal deep venous system on the left . The great saphenous veins appear bilaterally patent and compressible segmentally. Sapheno-femoral junctions are bilaterally competent . The right gr eat saphenous vein appears competent above the knee. The right great saphenous vein appears incompetent below the kn ee. The left great saphenous vein appears segmentally competent. The right small saphenous vein is patent and incompetent . The left small saphenous vein is patent and competent. The accessory saphenous vein in the right proximal calf is incom petent. Ordering Physician: Miguel Angel Vargas Referring Physician: Ryder Narayanan Performed By: Katie Wynn RVT
[2024-11-29 12:08] VITALS: BP 174/108; PULSE 91; RESP 18; TEMP 36.1
--- NOTE | 2024-11-30 09:42 | WC ---
PHOTO-RIGHT POST LE 11/29/24
--- NOTE | 2024-12-01 13:07 | PCM.WC.HP ---
History of Present Illness Date of Service: 11/29/24 Chief Complaint: Bilateral lower extremity swelling and edema; severe venous stasis dermatitis History of Wound: This is a 63-year-old morbidly obese female who presented with severe swelling and edema in both lower extremities, which had been chronic in nature. 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 She presented with severe swelling, edema, and lymphedema in both lower extremities. Her lower extremities also demonstrated severe, exudative venous stasis dermatitis, hyperpigmentation, and lipodermatosclerosis. The patient claimed to sleep on a flat mattress at night. She is not active. She denied a history of thrombophlebitis. The patient denied a history of diabetes mellitus, myocardial infarction, congestive heart failure, cerebrovascular accident, hypertension, pulmonary disease, renal disease, hyperlipidemia, and thyroid disease. The patient was seen and evaluated in the [facility] Emergency Department on November 09, 2024, at which time a prescription for oral Keflex was issued for lower extremity cellulitis. [facility] Medical History Lipodermatosclerosis Dependent edema Venous stasis dermatitis of both lower extremities Leg edema, left Leg edema, right Left leg swelling Right leg swelling Lymphedema Chronic venous insufficiency Wears dentures Alcohol use Arthritis Restless legs Injury of head and neck Non-smoker CPAP (continuous positive airway pressure) dependence Sleep apnea History of edema History of pain when walking History of echocardiogram PERIPROSTETIC KNEE INFECTION Home Medications ?Medication ?Instructions ?Recorded ?Last Taken ?Type fluoxetine 20 mg capsule 20 mg PO DAILY mental health 11/22/16 05/25/17 History bupropion HCl 150 mg 24 hr tablet, 150 mg PO DAILY DEPRESSION 01/12/17 05/25/17 History extended release temazepam 15 mg capsule 15 mg PO QHS PRN PRN Sleep 03/27/17 05/25/17 History levofloxacin 500 mg tablet 500 mg PO Q24H 11/07/22 Unknown History naproxen 500 mg tablet mg 11/14/22 11/14/22 06:00 History cephalexin 500 mg capsule 500 mg PO Q6 5 days #24 CAPSULES 11/09/24 Unknown Rx Allergy/AdvReac Type Severity Reaction Status Date / Time No Known Allergies Allergy Verified 11/14/24 09:58 Family History Father Myocardial infarction Mother Myocardial infarction Surgical History History of hernia surgery History of History of arthroplasty of right ankle Status post bilateral hip replacements Status post bilateral knee replacements Social History Smoking Status: Never smoker alcohol intake: never Vital Signs Vital Signs Vital Signs: Weight Weight: 377 lb 6.902 oz Physical Exam Const alert, oriented x3, no apparent distress, no limitations and well nourished Constitutional Narrative: The patient is morbidly obese. Her BMI is 53.1. General Appearance: cooperative, comfortable and well developed Orientation / Consciousness: awake, oriented to person, oriented to place and oriented to time Exam Limitations: no limitations Nutritional Appearance: obese morbidly obese HEENT normocephalic and head/scalp atraumatic Head and Scalp: normal to inspection, normocephalic and atraumatic Face and Sinus: normal facial exam Nose: external nose normal External Ear: external ears normal Eyes EOMs intact bilaterally General Eye: normal appearance of both eyes Neck full ROM Resp normal respiratory effort, normal air movement, no retractions and no use of accessory muscles Effort and Inspection: able to speak in complete sentences Extremity no calf tenderness General Extremity: Negative for clubbing or cyanosis Skin Wound Narrative: Severe swelling, edema, and lymphedema persist in the patient's lower extremities bilaterally. There are no lizzette open wounds or ulcerations. Scaly venous stasis dermatitis, hyperpigmentation, and lipodermatosclerosis are noted in the gaiter areas bilaterally, more pronounced in the right lower extremity. There is no overt sign of infection or cellulitis. No drainage is noted. Neuro oriented x3, CN's II-XII intact bilaterally, moves all extremities, no focal motor deficits and no sensory deficits noted Sensorium / Orientation: awake, alert, oriented to person, oriented to place and oriented to time Speech: speech normal Psych Appearance: grossly normal and appropriate Attitude: calm Activity / Motor Behavior: appropriate eye contact Speech: normal speech Mood & Affect: euthymic mood Attention / Concentration: attention grossly intact Debridement Note Debridement Note No debridement was completed: No debridement was completed today Post-Debridement Measurements and Additional Note: Post-Debridement Measurements/Treatment - Nurse 1 - General Ulcer Assessment Start: 11/22/24 09:35 Freq: Status: Active Protocol: LAXMI Activity Type Activity Date Activity User E-sign Co-sign Detail Recorded Client Recorded Date Recorded By Document 11/22/24 09:54 ML [id number] 11/22/24 10:00 ML Document 11/25/24 10:55 RB [id number] 11/25/24 10:57 RB Document 11/29/24 12:08 KW [id number] 11/29/24 12:13 KW 11/22/24 11/25/24 11/29/24 09:54 10:55 12:08 - Today's Visit Information Type of service Follow-up Visit Nurse-only Follow-up Visit (Physician/SERVER ENGINEER Visit (Physician/SERVER ENGINEER ) ) Arrival Mode Ambulatory Ambulatory Ambulatory Transfer Assistance None None Patient Identification Verified (Name & Yes Yes Yes ) Patient Requires Transmission-Based No No Precautions Vital Signs Temperature (97.8 F-99.1 F) 97.9 F 96.5 F L 96.9 F L Temperature Source Temporal Temporal Temporal Pulse Rate (60-100) 100 94 91 Pulse Location Monitor Monitor Monitor Respiratory Rate (12-18) 15 18 18 Respiratory rate source Observation Observation Observation Oxygen Delivery Method Room Air Blood Pressure (90/60-120/80) 153/93 H 151/79 H 174/108 H Blood Pressure Mean 113 103 130 Source Monitor Monitor Monitor Position Sitting Semi-Fowlers Semi-Fowlers Blood Pressure Location Left Arm Left Arm Left Arm History Since Last Visit- (Skip if this is Patient's initial visit) Have you changed medications since your No No No last visit? Any new allergies or adverse reactions No No No Had a fall/change in ADL's that may No No No increase risk of falls Signs or symptoms of abuse and/or No No No neglect since last visit Have you been in the hospital since your No No No last visit? Has dressing in place as prescribed Yes Yes Yes Has compression in place as prescribed Yes Yes Yes Has offloadiing in place as prescribed No N/A N/A Experienced any changes in pain level or No No No management Left Footwear Regular Shoe Regular Shoe Right Footwear Regular Shoe Regular Shoe Pain Scale: 0-10 Numeric Is Patient Pain Free? Yes Yes Yes WC - Nurse 1 - General Ulcer Measurement Start: 11/22/24 09:35 Freq: Status: Active Protocol: Activity Type Activity Date Activity User E-sign Co-sign Detail Recorded Client Recorded Date Recorded By Document 11/22/24 09:54 ML [id number] 11/22/24 10:00 ML Document 11/25/24 10:55 RB [id number] 11/25/24 10:57 RB Document 11/29/24 12:08 KW [id number] 11/29/24 12:13 KW 11/22/24 11/25/24 11/29/24 09:54 10:55 12:08 Wound Center Nurse 1 RIGHT POSTERIOR LE -Texture (Lenora-wound Skin Appearance) Assessed -Moisture (Lenora-wound Skin Appearance) Assessed -Color (Lenora-wound Skin Appearance) Assessed -Temperature (Lenora-wound Skin No Abnormality Appearance) (Pt Warm) -Tenderness on Palpation (Lenora-wound No Skin Appearance) -Ulcer Cleansing Soap and Water -Foul Odor after Cleansing No Lower Limb Edema Present Yes Right Calf (cm) 69 69.5 68.5 Right Ankle (cm) 41.5 35.2 38.6 Left Calf (cm) 64.4 Left Ankle (cm) 35.4 WC - Nurse 2 - General Ulcer CM Notes Start: 11/22/24 09:35 Freq: Status: Active Protocol: Activity Type Activity Date Activity User E-sign Co-sign Detail Recorded Client Recorded Date Recorded By Document 11/22/24 10:19 [id number] 11/22/24 10:30 Document 11/29/24 12:20 DS [id number] 11/29/24 12:21 DS 11/22/24 11/29/24 10:19 12:20 Wound Center Nurse 2 RIGHT POSTERIOR LE -Time 12:20 -Correct Patient Yes -Correct Side, Site, Position Yes -Procedure Performed No -Wound/Ulcer Outcome Not Healed Pain Scale: 0-10 Numeric Is Patient Pain Free? Yes Yes WC - Nurse 3 - General Ulcer D/C NN Start: 11/22/24 09:35 Freq: Status: Active Protocol: Activity Type Activity Date Activity User E-sign Co-sign Detail Recorded Client Recorded Date Recorded By Document 11/22/24 10:40 ML [id number] 11/22/24 10:43 ML Document 11/25/24 10:55 RB [id number] 11/25/24 10:57 RB Document 11/29/24 12:30 KW [id number] 11/29/24 12:31 KW 11/22/24 11/25/24 11/29/24 10:40 10:55 12:30 Wound Care Center Nurse 3 RIGHT POSTERIOR LE -Ulcer Cleansing Rinsed/ Wound Cleanser Irrigated with Saline -Foul Odor after Cleansing No -Primary Dressing Applied Optilok 8x12 Optilok 6.5x10 Optilok 5x5 1/2 -Optilok 5x5 1/2 1 -Optilok 6.5x10 1 -Optilok 8x12 1 RLE -Multi-Layered Wrap Application Unna Boot - Unna Boot - Unna Boot - Right Right Right -Unna- Right (Qty applied) 1 1 1 LLE -Tubular Bandage Single Layer Single Layer Double Layer -Size of Tubigrip Used Size F Size F Size F -Size F ($) 1 1 2 Treatment Response Procedure Tolerated Well Pain Scale: 0-10 Numeric Is Patient Pain Free? Yes Yes Yes WC - Visit Discharge Discharge Condition Stable Stable Ambulatory Status Ambulatory Ambulatory Transportation Private Auto Private Auto Medication Reconcilliation completed & No No provided to patient/care provider Clinical Summary of Care Provided Yes Yes Charges/Coding Visit Charges Office Visits / Consults: [id number] OV L3 Est 20min Assessment/Plan Assessment/Plan (1) Venous stasis dermatitis of both lower extremities: CODE(S): I87.2 - Venous insufficiency (chronic) (peripheral) (2) Chronic venous insufficiency: CODE(S): I87.2 - Venous insufficiency (chronic) (peripheral) (3) Lymphedema: CODE(S): I89.0 - Lymphedema, not elsewhere classified (4) Dependent edema: CODE(S): R60.9 - Edema, unspecified (5) Leg edema, right: CODE(S): R60.0 - Localized edema (6) Leg edema, left: CODE(S): R60.0 - Localized edema (7) Right leg swelling: CODE(S): M79.89 - Other specified soft tissue disorders (8) Left leg swelling: CODE(S): M79.89 - Other specified soft tissue disorders (9) Lipodermatosclerosis: CODE(S): M79.3 - Panniculitis, unspecified (10) Morbid obesity: CODE(S): E66.01 - Morbid (severe) obesity due to excess calories (11) DDD (degenerative disc disease), lumbosacral: CODE(S): M51.37 - Other intervertebral disc degeneration, lumbosacral region (12) History of cellulitis: CODE(S): Z87.2 - Personal history of diseases of the skin and subcutaneous tissue (13) Osteoarthritis: (14) Status post bilateral knee replacements: CODE(S): Z96.653 - Presence of artificial knee joint, bilateral (15) Status post bilateral hip replacements: CODE(S): Z96.643 - Presence of artificial hip joint, bilateral PLAN: Plan This is a 63-year-old morbidly obese female who presented with severe swelling, edema, lymphedema in her lower extremities, as well as severe venous stasis skin changes in her lower extremities. The right lower extremity is more severely affected. Manifestations include venous stasis dermatitis, hyperpigmentation, and lipodermatosclerosis. Cellulitis is not currently suspected. The patient is not active. 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 The swelling and edema in the patient's lower extremities is chronic in nature, and had recently become worse. A lengthy discussion has been undertaken with the patient regarding the conservative measures appropriate to the management of her lower extremity swelling and edema. Leg elevation has been encouraged. Elevation is to be to heart level, or higher, as much as possible. She has been encouraged to continue sleeping on a flat mattress at night. Her legs are to be elevated during daytime hours as well, as much as possible. Prolonged idle sitting has been discouraged. Activity/ambulation has been encouraged. Weight loss has also been discussed, and the patient underwent a dietary consultation at her clinic visit today. Recent laboratory results have been reviewed. Vascular studies have been completed earlier today, results of which are as follows: There is no evidence of arterial occlusive disease in the lower extremities bilaterally. The patient's venous ultrasound study revealed no evidence of deep vein thrombosis on either side. The right great saphenous vein was noted to be incompetent below the knee. The right small saphenous vein was noted to be incompetent. The accessory saphenous vein in the right proximal calf was also noted to be incompetent. We are to continue compression to the lower extremities bilaterally. An Unna compression wrap is to be applied to the right lower extremity, and will be changed twice weekly. A double Tubigrip compression sleeve will be applied to the left lower extremity, and will be donned by the patient on a daily basis. The patient's lower extremity dimensions have been documented in the clinic today, and are to be sent to her DME provider in an effort to procure CircAid Velcro compression garments for the patient's long-term use. The patient is to return in 1 week for reevaluation. Total time: 26 minutes
[2024-12-01 14:51] VITALS: BP 156/82; PULSE 87; RESP 18; TEMP 35.9
[2024-12-06 10:00] VITALS: BP 150/75; PULSE 90; RESP 18; TEMP 35.9
--- NOTE | 2024-12-07 14:00 | WC ---
PHOTO- R POST LE 12/06/24
[2024-12-08 12:07] VITALS: BP 154/94; RESP 18; TEMP 36.3
--- NOTE | 2024-12-09 12:14 | PCM.WC.HP ---
History of Present Illness Date of Service: 12/06/24 Chief Complaint: Bilateral lower extremity swelling and edema; severe venous stasis dermatitis History of Wound: This is a 63-year-old morbidly obese female who presented with severe swelling and edema in both lower extremities, which had been chronic in nature. 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 She presented with severe swelling, edema, and lymphedema in both lower extremities. Her lower extremities also demonstrated severe, exudative venous stasis dermatitis, hyperpigmentation, and lipodermatosclerosis. The patient claimed to sleep on a flat mattress at night. She is not active. She denied a history of thrombophlebitis. The patient denied a history of diabetes mellitus, myocardial infarction, congestive heart failure, cerebrovascular accident, hypertension, pulmonary disease, renal disease, hyperlipidemia, and thyroid disease. The patient was seen and evaluated in the [facility] Emergency Department on November 09, 2024, at which time a prescription for oral Keflex was issued for lower extremity cellulitis. [facility] Medical History Lipodermatosclerosis Dependent edema Venous stasis dermatitis of both lower extremities Leg edema, left Leg edema, right Left leg swelling Right leg swelling Lymphedema Chronic venous insufficiency Wears dentures Alcohol use Arthritis Restless legs Injury of head and neck Non-smoker CPAP (continuous positive airway pressure) dependence Sleep apnea History of edema History of pain when walking History of echocardiogram PERIPROSTETIC KNEE INFECTION Home Medications ?Medication ?Instructions ?Recorded ?Last Taken ?Type fluoxetine 20 mg capsule 20 mg PO DAILY mental health 11/22/16 05/25/17 History bupropion HCl 150 mg 24 hr tablet, 150 mg PO DAILY DEPRESSION 01/12/17 05/25/17 History extended release temazepam 15 mg capsule 15 mg PO QHS PRN PRN Sleep 03/27/17 05/25/17 History levofloxacin 500 mg tablet 500 mg PO Q24H 11/07/22 Unknown History naproxen 500 mg tablet mg 11/14/22 11/14/22 06:00 History cephalexin 500 mg capsule 500 mg PO Q6 5 days #24 CAPSULES 11/09/24 Unknown Rx Allergy/AdvReac Type Severity Reaction Status Date / Time No Known Allergies Allergy Verified 11/14/24 09:58 Family History Father Myocardial infarction Mother Myocardial infarction Surgical History History of hernia surgery History of History of arthroplasty of right ankle Status post bilateral hip replacements Status post bilateral knee replacements Social History Smoking Status: Never smoker alcohol intake: never Vital Signs Vital Signs Vital Signs: Weight Weight: 377 lb 6.902 oz Physical Exam Const alert, oriented x3, no apparent distress, no limitations and well nourished Constitutional Narrative: The patient is morbidly obese. Her BMI is 54.2. General Appearance: cooperative, comfortable and well developed Orientation / Consciousness: awake, oriented to person, oriented to place and oriented to time Exam Limitations: no limitations Nutritional Appearance: obese morbidly obese HEENT normocephalic and head/scalp atraumatic Head and Scalp: normal to inspection, normocephalic and atraumatic Face and Sinus: normal facial exam Nose: external nose normal External Ear: external ears normal Eyes EOMs intact bilaterally General Eye: normal appearance of both eyes Neck full ROM Resp normal respiratory effort, normal air movement, no retractions and no use of accessory muscles Effort and Inspection: able to speak in complete sentences Extremity no calf tenderness General Extremity: Negative for clubbing or cyanosis Skin Wound Narrative: Severe swelling, edema, and lymphedema persist in the patient's lower extremities bilaterally. There has been no significant improvement. There is a superficial excoriation with denudation of epithelial layers on the right posterior calf. The base of the excoriation appears pink and healthy in appearance. Dimensions are documented elsewhere. This area is surrounded by mild hyperpigmentation and lipodermatosclerosis, which is more pronounced in the right gaiter area than that on the left. There is no overt sign of infection or cellulitis. No drainage is noted. Neuro oriented x3, CN's II-XII intact bilaterally, moves all extremities, no focal motor deficits and no sensory deficits noted Sensorium / Orientation: awake, alert, oriented to person, oriented to place and oriented to time Speech: speech normal Psych Appearance: grossly normal and appropriate Attitude: calm Activity / Motor Behavior: appropriate eye contact Speech: normal speech Mood & Affect: euthymic mood Attention / Concentration: attention grossly intact Debridement Note Debridement Note No debridement was completed: No debridement was completed today Post-Debridement Measurements and Additional Note: Post-Debridement Measurements/Treatment WC - Nurse 1 - General Ulcer Assessment Start: 11/22/24 09:35 Freq: Status: Active Protocol: SHIVA.LOWJG Activity Type Activity Date Activity User E-sign Co-sign Detail Recorded Client Recorded Date Recorded By Document 11/22/24 09:54 ML [id number] 11/22/24 10:00 ML Document 11/25/24 10:55 RB [id number] 11/25/24 10:57 RB Document 11/29/24 12:08 KW [id number] 11/29/24 12:13 KW Document 12/01/24 14:51 KW [id number] 12/01/24 15:07 KW Document 12/06/24 10:00 BMF [id number] 12/06/24 10:14 BMF Document 12/08/24 12:07 DL [id number] 12/08/24 12:11 DL 11/22/24 11/25/24 11/29/24 09:54 10:55 12:08 - Today's Visit Information Type of service Follow-up Visit Nurse-only Follow-up Visit (Physician/BAKER OPERATOR AUTOMATIC Visit (Physician/BAKER OPERATOR AUTOMATIC ) ) Arrival Mode Ambulatory Ambulatory Ambulatory Transfer Assistance None None Transfer Assist (Other) Patient Identification Verified (Name & Yes Yes Yes ) Patient Requires Transmission-Based No No Precautions Vital Signs Temperature (97.8 F-99.1 F) 97.9 F 96.5 F L 96.9 F L Temperature Source Temporal Temporal Temporal Pulse Rate (60-100) 100 94 91 Pulse Location Monitor Monitor Monitor Respiratory Rate (12-18) 15 18 18 Respiratory rate source Observation Observation Observation Oxygen Delivery Method Room Air Blood Pressure (90/60-120/80) 153/93 H 151/79 H 174/108 H Blood Pressure Mean 113 103 130 Source Monitor Monitor Monitor Position Sitting Semi-Fowlers Semi-Fowlers Blood Pressure Location Left Arm Left Arm Left Arm History Since Last Visit- (Skip if this is Patient's initial visit) Have you changed medications since your No No No last visit? Any new allergies or adverse reactions No No No Had a fall/change in ADL's that may No No No increase risk of falls Signs or symptoms of abuse and/or No No No neglect since last visit Have you been in the hospital since your No No No last visit? Has dressing in place as prescribed Yes Yes Yes Has compression in place as prescribed Yes Yes Yes Has offloadiing in place as prescribed No N/A N/A Experienced any changes in pain level or No No No management Left Footwear Regular Shoe Regular Shoe Right Footwear Regular Shoe Regular Shoe Pain Scale: 0-10 Numeric Is Patient Pain Free? Yes Yes Yes 12/01/24 12/06/24 12/08/24 14:51 10:00 12:07 - Today's Visit Information Type of service Nurse-only Follow-up Visit Nurse-only Visit (Physician/BAKER OPERATOR AUTOMATIC Visit ) Arrival Mode Ambulatory Ambulatory Ambulatory Transfer Assistance None Manual,None Transfer Assist (Other) x1 Patient Identification Verified (Name & Yes Yes Yes ) Patient Requires Transmission-Based No No Precautions Vital Signs Temperature (97.8 F-99.1 F) 96.7 F L 96.7 F L 97.4 F L Temperature Source Temporal Temporal Temporal Pulse Rate (60-100) 87 90 Pulse Location Monitor Monitor Respiratory Rate (12-18) 18 18 18 Respiratory rate source Observation Observation Observation Oxygen Delivery Method Room Air Room Air Blood Pressure (90/60-120/80) 156/82 H 150/75 H 154/94 H Blood Pressure Mean 106 100 114 Source Monitor Monitor Monitor Position Semi-Fowlers Sitting Blood Pressure Location Right Forearm Left Forearm History Since Last Visit- (Skip if this is Patient's initial visit) Have you changed medications since your No No last visit? Any new allergies or adverse reactions No No Had a fall/change in ADL's that may No No increase risk of falls Signs or symptoms of abuse and/or No No neglect since last visit Have you been in the hospital since your No No last visit? Has dressing in place as prescribed Yes Yes Has compression in place as prescribed Yes Yes Has offloadiing in place as prescribed N/A N/A Experienced any changes in pain level or No No management Left Footwear Regular Shoe Diabetic Shoe Right Footwear Regular Shoe Diabetic Shoe Pain Scale: 0-10 Numeric Is Patient Pain Free? Yes Yes Yes - Nurse 1 - General Ulcer Measurement Start: 11/22/24 09:35 Freq: Status: Active Protocol: Activity Type Activity Date Activity User E-sign Co-sign Detail Recorded Client Recorded Date Recorded By Document 11/22/24 09:54 ML [id number] 11/22/24 10:00 ML Document 11/25/24 10:55 RB [id number] 11/25/24 10:57 RB Document 11/29/24 12:08 KW [id number] 11/29/24 12:13 KW Document 12/06/24 10:00 BMF [id number] 12/06/24 10:14 BMF Document 12/08/24 12:07 DL [id number] 12/08/24 12:11 DL 11/22/24 11/25/24 11/29/24 09:54 10:55 12:08 Wound Center Nurse 1 RIGHT POSTERIOR LE -Combined with other wound -Current Size (cm) - Length -Current Size (cm) - Width -Current Size (cm) - Depth -Total Square Cm -Date of Last Picture (Recall this field) -Photo Taken -Tunneling -Undermining/Tunneling -Circular Undermining -Exudate Amt -Exudate Type -Wound Margin -Granulation Amt -Granulation Quality -Slough/Fibrin -Necrosis Amt -Necrotic Tissue Type -Structure Exposed -Texture (Lenora-wound Skin Appearance) Assessed -Moisture (Lenora-wound Skin Appearance) Assessed -Color (Lenora-wound Skin Appearance) Assessed -Temperature (Lenora-wound Skin No Abnormality Appearance) (Pt Warm) -Tenderness on Palpation (Lenora-wound No Skin Appearance) -Ulcer Cleansing Soap and Water -Foul Odor after Cleansing No Lower Limb Edema Present Yes Right Calf (cm) 69 69.5 68.5 Right Ankle (cm) 41.5 35.2 38.6 Left Calf (cm) 64.4 Left Ankle (cm) 35.4 12/06/24 12/08/24 10:00 12:07 Wound Center Nurse 1 RIGHT POSTERIOR LE -Combined with other wound No -Current Size (cm) - Length 11 0.1 -Current Size (cm) - Width 10 0.1 -Current Size (cm) - Depth 0.1 0.1 -Total Square Cm 110 0.01 -Date of Last Picture (Recall this 12/06/24 field) -Photo Taken Yes -Tunneling No -Undermining/Tunneling No -Circular Undermining No -Exudate Amt Large Medium -Exudate Type Serosanguineous Serosanguineous -Wound Margin Flat & Intact Indistinct, Non -Visible -Granulation Amt Medium (34-66%) Large (67-100%) -Granulation Quality Red Pale,Ursina -Slough/Fibrin Yes -Necrosis Amt Medium (34-66%) None Present (0 %) -Necrotic Tissue Type Adherent Slough -Structure Exposed N/A -Texture (Lenora-wound Skin Appearance) Assessed, No Abnormality Scarring -Moisture (Lenora-wound Skin Appearance) Assessed Weeping -Color (Lenora-wound Skin Appearance) Assessed No Abnormality -Temperature (Lenora-wound Skin No Abnormality No Abnormality Appearance) (Pt Warm) (Pt Warm) -Tenderness on Palpation (Lenora-wound No No Skin Appearance) -Ulcer Cleansing Soap and Water Soap and Water -Foul Odor after Cleansing No No Lower Limb Edema Present Yes Right Calf (cm) 68.5 Right Ankle (cm) 34.1 Left Calf (cm) Left Ankle (cm) WC - Nurse 2 - General Ulcer CM Notes Start: 11/22/24 09:35 Freq: Status: Active Protocol: Activity Type Activity Date Activity User E-sign Co-sign Detail Recorded Client Recorded Date Recorded By Document 11/22/24 10:19 JF [id number] 11/22/24 10:30 JF Document 11/29/24 12:20 DS [id number] 11/29/24 12:21 DS Document 12/06/24 10:48 DS [id number] 12/06/24 10:51 DS 11/22/24 11/29/24 12/06/24 10:19 12:20 10:48 Wound Center Nurse 2 RIGHT POSTERIOR LE -Time 12:20 10:49 -Correct Patient Yes Yes -Correct Side, Site, Position Yes Yes -Procedure Performed No No -Wound/Ulcer Outcome Not Healed Not Healed Pain Scale: 0-10 Numeric Is Patient Pain Free? Yes Yes Yes - Nurse 3 - General Ulcer D/C NN Start: 11/22/24 09:35 Freq: Status: Active Protocol: Activity Type Activity Date Activity User E-sign Co-sign Detail Recorded Client Recorded Date Recorded By Document 11/22/24 10:40 ML [id number] 11/22/24 10:43 ML Document 11/25/24 10:55 RB [id number] 11/25/24 10:57 RB Document 11/29/24 12:30 KW [id number] 11/29/24 12:31 KW Document 12/01/24 15:07 KW [id number] 12/01/24 15:07 KW Document 12/06/24 10:44 BMF [id number] 12/06/24 10:45 BMF Document 12/06/24 11:12 BMF [id number] 12/06/24 11:15 BMF Document 12/08/24 12:07 DL [id number] 12/08/24 12:11 DL 11/22/24 11/25/24 11/29/24 10:40 10:55 12:30 Wound Care Center Nurse 3 RIGHT POSTERIOR LE -Ulcer Cleansing Rinsed/ Wound Cleanser Irrigated with Saline -Foul Odor after Cleansing No -Primary Dressing Applied Optilok 8x12 Optilok 6.5x10 Optilok 5x5 1/2 -Other Dressing -Primary Dressing Covered/Secured with -Other Covering -Aquacel AG 4x4 -Optilok 5x5 1/2 1 -Optilok 6.5x10 1 -Optilok 8x12 1 RLE -Multi-Layered Wrap Application Unna Boot - Unna Boot - Unna Boot - Right Right Right -Tubular Bandage -Size of Tubigrip Used -Size D ($) -Other -Unna- Right (Qty applied) 1 1 1 LLE -Tubular Bandage Single Layer Single Layer Double Layer -Size of Tubigrip Used Size F Size F Size F -Size F ($) 1 1 2 Treatment Response Procedure Tolerated Well Pain Scale: 0-10 Numeric Is Patient Pain Free? Yes Yes Yes WC - Visit Discharge Discharge Condition Stable Stable Ambulatory Status Ambulatory Ambulatory Transportation Private Auto Private Auto Medication Reconcilliation completed & No No provided to patient/care provider Clinical Summary of Care Provided Yes Yes 12/01/24 12/06/24 12/06/24 15:07 10:44 11:12 Wound Care Center Nurse 3 RIGHT POSTERIOR LE -Ulcer Cleansing Rinsed/ Rinsed/ Irrigated with Irrigated with Saline Saline -Foul Odor after Cleansing No No -Primary Dressing Applied Optilok 6.5x10 Aquacel AG 4x4 Optilok 8x12 -Other Dressing ABD unna -Primary Dressing Covered/Secured with Dry Gauze & Roll Gauze, Secured with Tape -Other Covering DRSG PER KW MANAGER [employer] abd to pad ankle -Aquacel AG 4x4 2 -Optilok 5x5 1/2 -Optilok 6.5x10 1 -Optilok 8x12 2 RLE -Multi-Layered Wrap Application Unna Boot - Unna Boot - Right Right -Tubular Bandage Double Layer -Size of Tubigrip Used Size D -Size D ($) 2 -Other APPLIED PER KW MANAGER [employer] -Unna- Right (Qty applied) 1 1 LLE -Tubular Bandage Double Layer -Size of Tubigrip Used Size F -Size F ($) 2 Treatment Response Procedure Procedure Tolerated Well Tolerated Well Pain Scale: 0-10 Numeric Is Patient Pain Free? Yes Yes Yes WC - Visit Discharge Discharge Condition Stable Stable Stable Ambulatory Status Ambulatory Ambulatory Ambulatory Transportation Private Auto Private Auto Private Auto Medication Reconcilliation completed & No provided to patient/care provider Clinical Summary of Care Provided Yes 12/08/24 12:07 Wound Care Center Nurse 3 RIGHT POSTERIOR LE -Ulcer Cleansing Soap and Water -Foul Odor after Cleansing No -Primary Dressing Applied Optilok 5x5 1/2 -Other Dressing unna -Primary Dressing Covered/Secured with -Other Covering -Aquacel AG 4x4 -Optilok 5x5 1/2 1 -Optilok 6.5x10 -Optilok 8x12 RLE -Multi-Layered Wrap Application Unna Boot - Right -Tubular Bandage -Size of Tubigrip Used -Size D ($) -Other -Unna- Right (Qty applied) 1 LLE -Tubular Bandage -Size of Tubigrip Used -Size F ($) Treatment Response Procedure Tolerated Well Pain Scale: 0-10 Numeric Is Patient Pain Free? Yes WC - Visit Discharge Discharge Condition Stable Ambulatory Status Ambulatory Transportation Private Auto Medication Reconcilliation completed & provided to patient/care provider Clinical Summary of Care Provided Charges/Coding Visit Charges Office Visits / Consults: [id number] OV L3 Est 20min Assessment/Plan Assessment/Plan (1) Venous stasis dermatitis of both lower extremities: CODE(S): I87.2 - Venous insufficiency (chronic) (peripheral) (2) Chronic venous insufficiency: CODE(S): I87.2 - Venous insufficiency (chronic) (peripheral) (3) Lymphedema: CODE(S): I89.0 - Lymphedema, not elsewhere classified (4) Dependent edema: CODE(S): R60.9 - Edema, unspecified (5) Leg edema, right: CODE(S): R60.0 - Localized edema (6) Leg edema, left: CODE(S): R60.0 - Localized edema (7) Right leg swelling: CODE(S): M79.89 - Other specified soft tissue disorders (8) Left leg swelling: CODE(S): M79.89 - Other specified soft tissue disorders (9) Lipodermatosclerosis: CODE(S): M79.3 - Panniculitis, unspecified (10) Morbid obesity: CODE(S): E66.01 - Morbid (severe) obesity due to excess calories (11) DDD (degenerative disc disease), lumbosacral: CODE(S): M51.37 - Other intervertebral disc degeneration, lumbosacral region (12) History of cellulitis: CODE(S): Z87.2 - Personal history of diseases of the skin and subcutaneous tissue (13) Osteoarthritis: (14) Status post bilateral knee replacements: CODE(S): Z96.653 - Presence of artificial knee joint, bilateral (15) Status post bilateral hip replacements: CODE(S): Z96.643 - Presence of artificial hip joint, bilateral PLAN: Plan This is a 63-year-old morbidly obese female who presented with severe swelling, edema, lymphedema in her lower extremities, as well as severe venous stasis skin changes in her lower extremities. The right lower extremity is more severely affected. Manifestations include venous stasis dermatitis, hyperpigmentation, and lipodermatosclerosis. Cellulitis is not currently suspected. The patient is not active. 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 The swelling and edema in the patient's lower extremities is chronic in nature, and had recently become worse. A lengthy discussion has been undertaken with the patient regarding the conservative measures appropriate to the management of her lower extremity swelling and edema. Leg elevation has been encouraged. Elevation is to be to heart level, or higher, as much as possible. She has been encouraged to continue sleeping on a flat mattress at night. Her legs are to be elevated during daytime hours as well, as much as possible. Prolonged idle sitting has been discouraged. Activity/ambulation has been encouraged. Weight loss has also been discussed, and the patient underwent a dietary consultation at a recent clinic visit. Recent laboratory results have been reviewed. Vascular studies have been completed recently, results of which are as follows: There is no evidence of arterial occlusive disease in the lower extremities bilaterally. The patient's venous ultrasound study revealed no evidence of deep vein thrombosis on either side. The right great saphenous vein was noted to be incompetent below the knee. The right small saphenous vein was noted to be incompetent. The accessory saphenous vein in the right proximal calf was also noted to be incompetent. We are to continue compression to the lower extremities bilaterally. An Unna compression wrap is to be applied to the right lower extremity, and will be changed twice weekly. A double Tubigrip compression sleeve will be applied to the left lower extremity, and will be donned by the patient on a daily basis. The patient's lower extremity dimensions have been documented in the clinic today, and have been sent to her DME provider in an effort to procure CircAid Velcro compression garments for the patient's long-term use. There is question as to the patient's compliance with recommended measures such as leg elevation, avoidance of idle standing and sitting, etc. She relates travel recently by automobile that have entailed long periods of prolonged, idle sitting. In addition, the patient has been advised to discuss weight loss options with her primary care physician. These options include, but are not limited to, ongoing dietary monitoring, exercise regimens, pharmacological means, bariatric surgery, etc. The patient is to return in 1 week for reevaluation. Total time: 25 minutes
[2024-12-13 10:42] VITALS: BP 151/75; PULSE 94; RESP 16; TEMP 35.8
[2024-12-16 11:10] VITALS: BP 147/54; PULSE 81; RESP 18; TEMP 35.5
[2024-12-20 09:55] VITALS: BP 146/88; PULSE 108; RESP 16; TEMP 35.6
--- NOTE | 2024-12-21 15:07 | WC ---
PHOTO-RIGHT POST LEG 12/20/24
--- NOTE | 2024-12-22 13:58 | HP.PCM_ITS ---
History of Present Illness Date of Service: 12/20/24 Chief Complaint: Bilateral lower extremity swelling and edema; severe venous stasis dermatitis History of Wound: This is a 63-year-old morbidly obese female who presented with severe swelling and edema in both lower extremities, which had been chronic in nature. 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 She presented with severe swelling, edema, and lymphedema in both lower extremities. Her lower extremities also demonstrated severe, exudative venous stasis dermatitis, hyperpigmentation, and lipodermatosclerosis. The patient claimed to sleep on a flat mattress at night. She is not active. She denied a history of thrombophlebitis. The patient denied a history of diabetes mellitus, myocardial infarction, congestive heart failure, cerebrovascular accident, hypertension, pulmonary disease, renal disease, hyperlipidemia, and thyroid disease. The patient was seen and evaluated in the [facility] Emergency Department on November 09, 2024, at which time a prescription for oral Keflex was issued for lower extremity cellulitis. [facility] Medical History Lipodermatosclerosis Dependent edema Venous stasis dermatitis of both lower extremities Leg edema, left Leg edema, right Left leg swelling Right leg swelling Lymphedema Chronic venous insufficiency Wears dentures Alcohol use Arthritis Restless legs Injury of head and neck Non-smoker CPAP (continuous positive airway pressure) dependence Sleep apnea History of edema History of pain when walking History of echocardiogram PERIPROSTETIC KNEE INFECTION Home Medications ?Medication ?Instructions ?Recorded ?Last Taken ?Type fluoxetine 20 mg capsule 20 mg PO DAILY mental health 11/22/16 05/25/17 History bupropion HCl 150 mg 24 hr tablet, 150 mg PO DAILY DEP RESSION 01/12/17 05/25/17 History extended release temazepam 15 mg capsule 15 mg PO QHS PRN PRN Sleep 0 03/27/17 05/25/17 History levofloxacin 500 mg tablet 500 mg PO Q24H 11/07/22 Unk nown History naproxen 500 mg tablet mg 11/14/22 11/14/22 06:00 H istory cephalexin 500 mg capsule 500 mg PO Q6 5 days #24 CAPS ULES 11/09/24 Unknown Rx Allergy/AdvReac Type Severity Reaction Status Date / Time No Known Allergies Allergy Verified 11/14/24 09:58 Family History Father Myocardial infarction Mother Myocardial infarction Surgical History History of hernia surgery History of History of arthroplasty of right ankle Status post bilateral hip replacements Status post bilateral knee replacements Social History Smoking Status: Never smoker alcohol intake: never Vital Signs Vital Signs Vital Signs: Weight Weight: 377 lb 6.902 oz Physical Exam Const alert, oriented x3, no apparent distress, no limitations and well nourished Constitutional Narrative: The patient is morbidly obese. Her BMI is 54.2. General Appearance: cooperative, comfortable and well developed Orientation / Consciousness: awake, oriented to person, oriented to place and oriented to time Exam Limitations: no limitations Nutritional Appearance: obese morbidly obese HEENT normocephalic and head/scalp atraumatic Head and Scalp: normal to inspection, normocephalic and atraumatic Face and Sinus: normal facial exam Nose: external nose normal External Ear: external ears normal Eyes EOMs intact bilaterally General Eye: normal appearance of both eyes Neck full ROM Resp normal respiratory effort, normal air movement, no retractions and no use of accessory muscles Effort and Inspection: able to speak in complete sentences Extremity no calf tenderness General Extremity: Negative for clubbing or cyanosis Skin Wound Narrative: Severe swelling, edema, and lymphedema persist in the patient's lower extremities bilaterally. There has been no significant improvement. There is a superficial excoriation with denudation of epithelial layers on the right posterior calf. The base of the excoriation appears pink and healthy in appearance. Dimensions are documented elsewhere. This area is surrounded by mild hyperpigmentation and lipodermatosclerosis, which is more pronounced in the right gaiter area than that on the left. There is no overt sign of infection or cellulitis. No drainage is noted. Neuro oriented x3, CN's II-XII intact bilaterally, moves all extremities, no focal motor deficits and no sensory deficits noted Sensorium / Orientation: awake, alert, oriented to person, oriented to place and oriented to time Speech: speech normal Psych Appearance: grossly normal and appropriate Attitude: calm Activity / Motor Behavior: appropriate eye contact Speech: normal speech Mood & Affect: euthymic mood Attention / Concentration: attention grossly intact Debridement Note Debridement Note No debridement was completed: No debridement was completed today Post-Debridement Measurements and Additional Note: Post-Debridement Measurements/Treatment WC - Nurse 1 - General Ulcer Assessment Start: 11/22/24 09:35 Freq: Status: Active Protocol: LAXMI Activity Type Activity Date Activity User E-sign Co-sign Detail Recorded Client Recorded Date Recorded By Document 11/22/24 09:54 ML [id number] 11/22/24 10:00 ML Document 11/25/24 10:55 RB [id number] 11/25/24 10:57 RB Document 11/29/24 12:08 KW [id number] 11/29/24 12:13 KW Document 12/01/24 14:51 KW [id number] 12/01/24 15:07 KW Document 12/06/24 10:00 BMF [id number] 12/06/24 10:14 BMF Document 12/08/24 12:07 DL [id number] 12/08/24 12:11 DL 11/22/24 11/25/24 11/29/24 09:54 10:55 12:08 WC - Today's Visit Information Type of service Follow-up Visit Nurse-only Follow-up Visit (Physician/MINE EXPLORATION ENGINEER Visit (Physician/MINE EXPLORATION ENGINEER ) ) Arrival Mode Ambulatory Ambulatory Ambulatory Transfer Assistance None None Transfer Assist (Other) Patient Identification Verified (Name & Yes Yes Yes ) Patient Requires Transmission-Based No No Precautions Vital Signs Temperature (97.8 F-99.1 F) 97.9 F 96.5 F L 96.9 F L Temperature Source Temporal Temporal Temporal Pulse Rate (60-100) 100 94 91 Pulse Location Monitor Monitor Monitor Respiratory Rate (12-18) 15 18 18 Respiratory rate source Observation Observation Observation Oxygen Delivery Method Room Air Blood Pressure (90/60-120/80) 153/93 H 151/79 H 174/108 H Blood Pressure Mean 113 103 130 Source Monitor Monitor Monitor Position Sitting Semi-Fowlers Semi-Fowlers Blood Pressure Location Left Arm Left Arm Left Arm History Since Last Visit- (Skip if this is Patient's initial visit) Have you changed medications since your No No No last visit? Any new allergies or adverse reactions No No No Had a fall/change in ADL's that may No No No increase risk of falls Signs or symptoms of abuse and/or No No No neglect since last visit Have you been in the hospital since your No No No last visit? Has dressing in place as prescribed Yes Yes Yes Has compression in place as prescribed Yes Yes Yes Has offloadiing in place as prescribed No N/A N/A Experienced any changes in pain level or No No No management Left Footwear Regular Shoe Regular Shoe Right Footwear Regular Shoe Regular Shoe Pain Scale: 0-10 Numeric Is Patient Pain Free? Yes Yes Yes 12/01/24 12/06/24 12/08/24 14:51 10:00 12:07 WC - Today's Visit Information Type of service Nurse-only Follow-up Visit Nurse-only Visit (Physician/MINE EXPLORATION ENGINEER Visit ) Arrival Mode Ambulatory Ambulatory Ambulatory Transfer Assistance None Manual,None Transfer Assist (Other) x1 Patient Identification Verified (Name & Yes Yes Yes ) Patient Requires Transmission-Based No No Precautions Vital Signs Temperature (97.8 F-99.1 F) 96.7 F L 96.7 F L 97.4 F L Temperature Source Temporal Temporal Temporal Pulse Rate (60-100) 87 90 Pulse Location Monitor Monitor Respiratory Rate (12-18) 18 18 18 Respiratory rate source Observation Observation Observation Oxygen Delivery Method Room Air Room Air Blood Pressure (90/60-120/80) 156/82 H 150/75 H 154/94 H Blood Pressure Mean 106 100 114 Source Monitor Monitor Monitor Position Semi-Fowlers Sitting Blood Pressure Location Right Forearm Left Forearm History Since Last Visit- (Skip if this is Patient's initial visit) Have you changed medications since your No No last visit? Any new allergies or adverse reactions No No Had a fall/change in ADL's that may No No increase risk of falls Signs or symptoms of abuse and/or No No neglect since last visit Have you been in the hospital since your No No last visit? Has dressing in place as prescribed Yes Yes Has compression in place as prescribed Yes Yes Has offloadiing in place as prescribed N/A N/A Experienced any changes in pain level or No No management Left Footwear Regular Shoe Diabetic Shoe Right Footwear Regular Shoe Diabetic Shoe Pain Scale: 0-10 Numeric Is Patient Pain Free? Yes Yes Yes - Nurse 1 - General Ulcer Measurement Start: 09/02/25 09:35 Freq: Status: Active Protocol: Activity Type Activity Date Activity User E-sign Co-sign Detail Recorded Client Recorded Date Recorded By Document 11/22/24 09:54 ML [id number] 11/22/24 10:00 ML Document 11/25/24 10:55 RB [id number] 11/25/24 10:57 RB Document 11/29/24 12:08 KW [id number] 11/29/24 12:13 KW Document 12/06/24 10:00 BMF [id number] 12/06/24 10:14 BMF Document 12/08/24 12:07 DL [id number] 12/08/24 12:11 DL 11/22/24 11/25/24 11/29/24 09:54 10:55 12:08 Wound Center Nurse 1 RIGHT POSTERIOR LE -Combined with other wound -Current Size (cm) - Length -Current Size (cm) - Width -Current Size (cm) - Depth -Total Square Cm -Date of Last Picture (Recall this field) -Photo Taken -Tunneling -Undermining/Tunneling -Circular Undermining -Exudate Amt -Exudate Type -Wound Margin -Granulation Amt -Granulation Quality -Slough/Fibrin -Necrosis Amt -Necrotic Tissue Type -Structure Exposed -Texture (Lenora-wound Skin Appearance) Assessed -Moisture (Lenora-wound Skin Appearance) Assessed -Color (Lenora-wound Skin Appearance) Assessed -Temperature (Lenora-wound Skin No Abnormality Appearance) (Pt Warm) -Tenderness on Palpation (Lenora-wound No Skin Appearance) -Ulcer Cleansing Soap and Water -Foul Odor after Cleansing No Lower Limb Edema Present Yes Right Calf (cm) 69 69.5 68.5 Right Ankle (cm) 41.5 35.2 38.6 Left Calf (cm) 64.4 Left Ankle (cm) 35.4 12/06/24 12/08/24 10:00 12:07 Wound Center Nurse 1 RIGHT POSTERIOR LE -Combined with other wound No -Current Size (cm) - Length 11 0.1 -Current Size (cm) - Width 10 0.1 -Current Size (cm) - Depth 0.1 0.1 -Total Square Cm 110 0.01 -Date of Last Picture (Recall this 12/06/24 field) -Photo Taken Yes -Tunneling No -Undermining/Tunneling No -Circular Undermining No -Exudate Amt Large Medium -Exudate Type Serosanguineous Serosanguineous -Wound Margin Flat & Intact Indistinct, Non -Visible -Granulation Amt Medium (34-66%) Large (67-100%) -Granulation Quality Red Pale,[place] -Slough/Fibrin Yes -Necrosis Amt Medium (34-66%) None Present (0 %) -Necrotic Tissue Type Adherent Slough -Structure Exposed N/A -Texture (Lenora-wound Skin Appearance) Assessed, No Abnormality Scarring -Moisture (Lenora-wound Skin Appearance) Assessed Weeping -Color (Lenora-wound Skin Appearance) Assessed No Abnormality -Temperature (Lenora-wound Skin No Abnormality No Abnormality Appearance) (Pt Warm) (Pt Warm) -Tenderness on Palpation (Lenora-wound No No Skin Appearance) -Ulcer Cleansing Soap and Water Soap and Water -Foul Odor after Cleansing No No Lower Limb Edema Present Yes Right Calf (cm) 68.5 Right Ankle (cm) 34.1 Left Calf (cm) Left Ankle (cm) - Nurse 2 - General Ulcer CM Notes Start: 11/22/24 09:35 Freq: Status: Active Protocol: Activity Type Activity Date Activity User E-sign Co-sign Detail Recorded Client Recorded Date Recorded By Document 11/22/24 10:19 JF [id number] 11/22/24 10:30 JF Document 11/29/24 12:20 DS [id number] 11/29/24 12:21 DS Document 12/06/24 10:48 DS [id number] 12/06/24 10:51 DS 11/22/24 11/29/24 12/06/24 10:19 12:20 10:48 Wound Center Nurse 2 RIGHT POSTERIOR LE -Time 12:20 10:49 -Correct Patient Yes Yes -Correct Side, Site, Position Yes Yes -Procedure Performed No No -Wound/Ulcer Outcome Not Healed Not Healed Pain Scale: 0-10 Numeric Is Patient Pain Free? Yes Yes Yes - Nurse 3 - General Ulcer D/C NN Start: 11/22/24 09:35 Freq: Status: Active Protocol: Activity Type Activity Date Activity User E-sign Co-sign Detail Recorded Client Recorded Date Recorded By Document 11/22/24 10:40 ML [id number] 11/22/24 10:43 ML Document 11/25/24 10:55 RB [id number] 11/25/24 10:57 RB Document 11/29/24 12:30 KW [id number] 11/29/24 12:31 KW Document 12/01/24 15:07 KW [id number] 12/01/24 15:07 KW Document 12/06/24 10:44 BMF [id number] 12/06/24 10:45 BMF Document 12/06/24 11:12 BMF [id number] 12/06/24 11:15 BMF Document 12/08/24 12:07 DL [id number] 12/08/24 12:11 DL 11/22/24 11/25/24 11/29/24 10:40 10:55 12:30 Wound Care Center Nurse 3 RIGHT POSTERIOR LE -Ulcer Cleansing Rinsed/ Wound Cleanser Irrigated with Saline -Foul Odor after Cleansing No -Primary Dressing Applied Optilok 8x12 Optilok 6.5x10 Optilok 5x5 1/2 -Other Dressing -Primary Dressing Covered/Secured with -Other Covering -Aquacel AG 4x4 -Optilok 5x5 1/2 1 -Optilok 6.5x10 1 -Optilok 8x12 1 RLE -Multi-Layered Wrap Application Unna Boot - Unna Boot - Unna Boot - Right Right Right -Tubular Bandage -Size of Tubigrip Used -Size D ($) -Other -Unna- Right (Qty applied) 1 1 1 LLE -Tubular Bandage Single Layer Single Layer Double Layer -Size of Tubigrip Used Size F Size F Size F -Size F ($) 1 1 2 Treatment Response Procedure Tolerated Well Pain Scale: 0-10 Numeric Is Patient Pain Free? Yes Yes Yes WC - Visit Discharge Discharge Condition Stable Stable Ambulatory Status Ambulatory Ambulatory Transportation Private Auto Private Auto Medication Reconcilliation completed & No No provided to patient/care provider Clinical Summary of Care Provided Yes Yes 12/01/24 12/06/24 12/06/24 15:07 10:44 11:12 Wound Care Center Nurse 3 RIGHT POSTERIOR LE -Ulcer Cleansing Rinsed/ Rinsed/ Irrigated with Irrigated with Saline Saline -Foul Odor after Cleansing No No -Primary Dressing Applied Optilok 6.5x10 Aquacel AG 4x4 Optilok 8x12 -Other Dressing ABD unna -Primary Dressing Covered/Secured with Dry Gauze & Roll Gauze, Secured with Tape -Other Covering DRSG PER KW STOPPING BUILDER abd to pad ankle -Aquacel AG 4x4 2 -Optilok 5x5 1/2 -Optilok 6.5x10 1 -Optilok 8x12 2 RLE -Multi-Layered Wrap Application Unna Boot - Unna Boot - Right Right -Tubular Bandage Double Layer -Size of Tubigrip Used Size D -Size D ($) 2 -Other APPLIED PER KW STOPPING BUILDER -Unna- Right (Qty applied) 1 1 LLE -Tubular Bandage Double Layer -Size of Tubigrip Used Size F -Size F ($) 2 Treatment Response Procedure Procedure Tolerated Well Tolerated Well Pain Scale: 0-10 Numeric Is Patient Pain Free? Yes Yes Yes WC - Visit Discharge Discharge Condition Stable Stable Stable Ambulatory Status Ambulatory Ambulatory Ambulatory Transportation Private Auto Private Auto Private Auto Medication Reconcilliation completed & No provided to patient/care provider Clinical Summary of Care Provided Yes 12/08/24 12:07 Wound Care Center Nurse 3 RIGHT POSTERIOR LE -Ulcer Cleansing Soap and Water -Foul Odor after Cleansing No -Primary Dressing Applied Optilok 5x5 1/2 -Other Dressing unna -Primary Dressing Covered/Secured with -Other Covering -Aquacel AG 4x4 -Optilok 5x5 1/2 1 -Optilok 6.5x10 -Optilok 8x12 RLE -Multi-Layered Wrap Application Unna Boot - Right -Tubular Bandage -Size of Tubigrip Used -Size D ($) -Other -Unna- Right (Qty applied) 1 LLE -Tubular Bandage -Size of Tubigrip Used -Size F ($) Treatment Response Procedure Tolerated Well Pain Scale: 0-10 Numeric Is Patient Pain Free? Yes WC - Visit Discharge Discharge Condition Stable Ambulatory Status Ambulatory Transportation Private Auto Medication Reconcilliation completed & provided to patient/care provider Clinical Summary of Care Provided Charges/Coding Visit Charges Office Visits / Consults: [id number] OV L3 Est 20min Assessment/Plan Assessment/Plan (1) Venous stasis dermatitis of both lower extremities: CODE(S): I87.2 - Venous insufficiency (chronic) (peripheral) (2) Chronic venous insufficiency: CODE(S): I87.2 - Venous insufficiency (chronic) (peripheral) (3) Lymphedema: CODE(S): I89.0 - Lymphedema, not elsewhere classified (4) Dependent edema: CODE(S): R60.9 - Edema, unspecified (5) Leg edema, right: CODE(S): R60.0 - Localized edema (6) Leg edema, left: CODE(S): R60.0 - Localized edema (7) Right leg swelling: CODE(S): M79.89 - Other specified soft tissue disorders (8) Left leg swelling: CODE(S): M79.89 - Other specified soft tissue disorders (9) Lipodermatosclerosis: CODE(S): M79.3 - Panniculitis, unspecified (10) Morbid obesity: CODE(S): E66.01 - Morbid (severe) obesity due to excess calories (11) DDD (degenerative disc disease), lumbosacral: CODE(S): M51.37 - Other intervertebral disc degeneration, lumbosacral region (12) History of cellulitis: CODE(S): Z87.2 - Personal history of diseases of the skin and subcutaneous tissue (13) Osteoarthritis: (14) Status post bilateral knee replacements: CODE(S): Z96.653 - Presence of artificial knee joint, bilateral (15) Status post bilateral hip replacements: CODE(S): Z96.643 - Presence of artificial hip joint, bilateral PLAN: Plan This is a 63-year-old morbidly obese female who presented with severe swelling, edema, and lymphedema in her lower extremities, as well as severe venous stasis skin changes in her lower extremities. The right lower extremity is more severely affected. Manifestations include venous stasis dermatitis, hyperpigmentation, and lipodermatosclerosis. Cellulitis is not currently suspected. The patient is not active. 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 The swelling and edema in the patient's lower extremities is chronic in nature, and had recently become worse. A lengthy discussion has been undertaken with the patient regarding the conservative measures appropriate to the management of her lower extremity swelling and edema. Leg elevation has been encouraged. Elevation is to be to heart level, or higher, as much as possible. She has been encouraged to continue sleeping on a flat mattress at night. Her legs are to be elevated during daytime hours as well, as much as possible. Prolonged idle sitting has been discouraged. Activity/ambulation has been encouraged. Weight loss has also been discussed, and the patient underwent a dietary consultation at a recent clinic visit. Unfortunately, despite repeated admonitions, the patient has been noncompliant with leg elevation, avoidance of prolonged idle sitting, etc. In fact, she states I have not had time. She admits that she continues to sleep in a chair with her legs in a dependent position. Recent laboratory results have been reviewed. Vascular studies have been completed recently, results of which are as follows: There is no evidence of arterial occlusive disease in the lower extremities bilaterally. The patient's venous ultrasound study revealed no evidence of deep vein thrombosis on either side. The right great saphenous vein was noted to be incompetent below the knee. The right small saphenous vein was noted to be incompetent. The accessory saphenous vein in the right proximal calf was also noted to be incompetent. Given the patient's morbid obesity, she is probably not an ideal candidate for a venous ablation procedure. However, this may be a consideration for the future. We are to continue compression to the lower extremities bilaterally. An Unna compression wrap is to be applied to the right lower extremity, and will be changed twice weekly. A double Tubigrip compression sleeve will be applied to the left lower extremity, and will be donned by the patient on a daily basis. The patient's lower extremity dimensions have been documented in the clinic, and have been sent to her DME provider in an effort to procure CircAid Velcro compression garments for the patient's long-term use. The patient has been advised to discuss weight loss options with her primary care physician. These options include, but are not limited to, ongoing dietary monitoring, exercise regimens, pharmacological means, bariatric surgery, etc. The patient is to return in 1 week for reevaluation. Total time: 26 minutes
== END 2024-12-20 23:59 | disposition home or self-care (01) ==
LOC: WC 10:30
PROVIDERS: PCP Family Medicine; Referring Provider Family Medicine; Visit Provider Surgery
DX: I73.9 Peripheral vascular disease, unspecified (principal); E66.01 Morbid (severe) obesity due to excess calories; Z68.43 Body mass index [BMI] 50.0-59.9, adult; I87.2 Venous insufficiency (chronic) (peripheral); I89.0 Lymphedema, not elsewhere classified; R60.0 Localized edema; M79.89 Other specified soft tissue disorders; Z96.643 Presence of artificial hip joint, bilateral; Z96.653 Presence of artificial knee joint, bilateral; Z87.2 Personal history of diseases of the skin and subcutaneous tissue; Z86.718 Personal history of other venous thrombosis and embolism
CPT/HCPCS: 29580; 93923; 93970; 97802; 97803; 99213; G0463

== ENCOUNTER 2024-12-27 10:15 | Outpatient (RCR) | payer MEDICARE, SELFPAY ==
[2024-12-23 10:11] VITALS: BP 142/70; PULSE 82; RESP 18; TEMP 35.7
[2024-12-27 10:34] VITALS: BP 122/70; PULSE 86; RESP 16; TEMP 35.7
--- NOTE | 2024-12-28 13:53 | WC ---
PHOTO-RIGHT POST LEG 12/27/24
--- NOTE | 2024-12-29 11:44 | HP.PCM_ITS ---
History of Present Illness Date of Service: 12/27/24 Chief Complaint: Bilateral lower extremity swelling and edema; severe venous stasis dermatitis History of Wound: This is a 64-year-old morbidly obese female who presented with severe swelling and edema in both lower extremities, which had been chronic in nature. 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 She presented with severe swelling, edema, and lymphedema in both lower extremities. Her lower extremities also demonstrated severe, exudative venous stasis dermatitis, hyperpigmentation, and lipodermatosclerosis. The patient claimed to sleep on a flat mattress at night. She is not active. She denied a history of thrombophlebitis. The patient denied a history of diabetes mellitus, myocardial infarction, congestive heart failure, cerebrovascular accident, hypertension, pulmonary disease, renal disease, hyperlipidemia, and thyroid disease. The patient was seen and evaluated in the [facility] Emergency Department on November 09, 2024, at which time a prescription for oral Keflex was issued for lower extremity cellulitis. [facility] Medical History Lipodermatosclerosis Dependent edema Venous stasis dermatitis of both lower extremities Leg edema, left Leg edema, right Left leg swelling Right leg swelling Lymphedema Chronic venous insufficiency Wears dentures Alcohol use Arthritis Restless legs Injury of head and neck Non-smoker CPAP (continuous positive airway pressure) dependence Sleep apnea History of edema History of pain when walking History of echocardiogram PERIPROSTETIC KNEE INFECTION Home Medications ?Medication ?Instructions ?Recorded ?Last Taken ?Type fluoxetine 20 mg capsule 20 mg PO DAILY mental health 11/22/16 05/25/17 History bupropion HCl 150 mg 24 hr tablet, 150 mg PO DAILY DEP RESSION 01/12/17 05/25/17 History extended release temazepam 15 mg capsule 15 mg PO QHS PRN PRN Sleep 0 03/27/17 05/25/17 History levofloxacin 500 mg tablet 500 mg PO Q24H 11/07/22 Unk nown History naproxen 500 mg tablet mg 11/14/22 11/14/22 06:00 H istory cephalexin 500 mg capsule 500 mg PO Q6 5 days #24 CAPS ULES 11/09/24 Unknown Rx Allergy/AdvReac Type Severity Reaction Status Date / Time No Known Allergies Allergy Verified 11/14/24 09:58 Family History Father Myocardial infarction Mother Myocardial infarction Surgical History History of hernia surgery History of History of arthroplasty of right ankle Status post bilateral hip replacements Status post bilateral knee replacements Social History Smoking Status: Never smoker alcohol intake: never Physical Exam Const alert, oriented x3, no apparent distress, no limitations and well nourished Constitutional Narrative: The patient is morbidly obese. Her BMI is 54.2. General Appearance: cooperative, comfortable and well developed Orientation / Consciousness: awake, oriented to person, oriented to place and oriented to time Exam Limitations: no limitations Nutritional Appearance: obese morbidly obese HEENT normocephalic and head/scalp atraumatic Head and Scalp: normal to inspection, normocephalic and atraumatic Face and Sinus: normal facial exam Nose: external nose normal External Ear: external ears normal Eyes EOMs intact bilaterally General Eye: normal appearance of both eyes Neck full ROM Resp normal respiratory effort, normal air movement, no retractions and no use of accessory muscles Effort and Inspection: able to speak in complete sentences Extremity no calf tenderness General Extremity: Negative for clubbing or cyanosis Skin Wound Narrative: Moderate swelling, edema, and lymphedema persist in the patient's lower extremities bilaterally. There has been mild improvement. The excoriations in the right lower extremity are healed and epithelialized. There are no remaining wounds or ulcerations. The chronic changes related to the patient's chronic v enous disease remain, including hyperpigmentation and lipodermatosclerosis in the gaiter areas bilaterally. Neuro oriented x3, CN's II-XII intact bilaterally, moves all extremities, no focal motor deficits and no sensory deficits noted Sensorium / Orientation: awake, alert, oriented to person, oriented to place and oriented to time Speech: speech normal Psych Appearance: grossly normal and appropriate Attitude: calm Activity / Motor Behavior: appropriate eye contact Speech: normal speech Mood & Affect: euthymic mood Attention / Concentration: attention grossly intact Debridement Note Debridement Note No debridement was completed: No debridement was completed today Post-Debridement Measurements and Additional Note: Post-Debridement Measurements/Treatment - Nurse 1 - General Ulcer Assessment Start: 12/23/24 10:11 Freq: Status: Active Protocol: LAXMI Activity Type Activity Date Activity User E-sign Co-sign Detail Recorded Client Recorded Date Recorded By Document 12/23/24 10:11 DS [id number] 12/23/24 10:14 DS Document 12/27/24 10:34 JF [id number] 12/27/24 10:44 JF Edit Result 12/27/24 10:34 JF (1) [id number] 12/27/24 10:46 JF (1) Blood Pressure (90/60-120/80) => 122/70 H Blood Pressure Mean => 87 Source => Monitor Position => Semi-Fowlers Blood Pressure Location => Left Arm 12/23/24 12/27/24 10:11 10:34 WC - Today's Visit Information Type of service Nurse-only Follow-up Visit Visit (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 ) Arrival Mode Ambulatory Ambulatory Patient Identification Verified (Name & No ) Vital Signs Temperature (97.8 F-99.1 F) 96.3 F L 96.3 F L Temperature Source Temporal Temporal Pulse Rate (60-100) 82 86 Pulse Location Monitor Monitor Respiratory Rate (12-18) 18 16 Respiratory rate source Observation Observation Oxygen Delivery Method Room Air Blood Pressure (90/60-120/80) 142/70 H 122/70 H Blood Pressure Mean 94 87 Source Monitor Monitor Position Sitting Semi-Fowlers Blood Pressure Location Left Forearm Left Arm History Since Last Visit- (Skip if this is Patient's initial visit) Have you changed medications since your Yes last visit? Any new allergies or adverse reactions No Had a fall/change in ADL's that may No increase risk of falls Signs or symptoms of abuse and/or No neglect since last visit Have you been in the hospital since your No last visit? Has dressing in place as prescribed Yes Has compression in place as prescribed Yes Has offloadiing in place as prescribed N/A Experienced any changes in pain level or No management Left Footwear Regular Shoe Right Footwear Regular Shoe Pain Scale: 0-10 Numeric Is Patient Pain Free? Yes Yes SHIVA - Nurse 1 - General Ulcer Measurement Start: 12/23/24 10:11 Freq: Status: Active Protocol: Activity Type Activity Date Activity User E-sign Co-sign Detail Recorded Client Recorded Date Recorded By Document 12/27/24 10:34 JF [id number] 12/27/24 10:44 JF 12/27/24 10:34 Wound Center Nurse 1 RIGHT POSTERIOR LE -Combined with other wound No -Current Size (cm) - Length 0.1 -Current Size (cm) - Width 0.1 -Current Size (cm) - Depth 0.1 -Total Square Cm 0.01 -Photo Taken Yes -Epithelialization Large 67-100% -Tunneling No -Undermining/Tunneling No -Circular Undermining No -Exudate Amt Small -Exudate Type Serosanguineous -Wound Margin Flat & Intact -Granulation Amt None Present (0 %) -Slough/Fibrin No -Structure Exposed N/A -Texture (Lenora-wound Skin Appearance) Assessed -Moisture (Lenora-wound Skin Appearance) No Abnormality, Dry/Scaly -Color (Lenora-wound Skin Appearance) Assessed -Temperature (Lenora-wound Skin No Abnormality Appearance) (Pt Warm) -Tenderness on Palpation (Lenora-wound No Skin Appearance) -Ulcer Cleansing Soap and Water -Foul Odor after Cleansing No Lower Limb Edema Present Yes Right Calf (cm) 70 Right Ankle (cm) 37.0 Left Calf (cm) 65.0 Left Ankle (cm) 36.2 WC - Nurse 2 - General Ulcer CM Notes Start: 12/23/24 10:11 Freq: Status: Active Protocol: Activity Type Activity Date Activity User E-sign Co-sign Detail Recorded Client Recorded Date Recorded By Document 12/27/24 10:53 DS [id number] 12/27/24 10:53 DS 12/27/24 10:53 Wound Center Nurse 2 RIGHT POSTERIOR LE -Time 10:53 -Correct Patient Yes -Correct Side, Site, Position Yes -Procedure Performed No -Wound/Ulcer Outcome Healed- Epithelialized Pain Scale: 0-10 Numeric Is Patient Pain Free? Yes WC - Nurse 3 - General Ulcer D/C NN Start: 12/23/24 10:11 Freq: Status: Active Protocol: Activity Type Activity Date Activity User E-sign Co-sign Detail Recorded Client Recorded Date Recorded By Document 12/23/24 10:36 DS [id number] 12/23/24 10:52 DS Document 12/27/24 11:22 RB [id number] 12/27/24 11:23 RB 12/23/24 12/27/24 10:36 11:22 Wound Care Center Nurse 3 RIGHT POSTERIOR LE -Primary Dressing Applied Optilok 5x5 1/2 -Optilok 5x5 1/2 1 -Wound Comment(s) bl le washed lotion applied to lle LLE -Tubular Bandage Double Layer Single Layer -Size of Tubigrip Used Size F Size F -Size F ($) 2 1 -Stockings Yes: pt own circiaids RLE -Multi-Layered Wrap Application Unna Boot - Right -Tubular Bandage Single Layer -Size of Tubigrip Used Size F -Size F ($) 1 -Stockings Yes: pt own circaids -Unna- Right (Qty applied) 1 Treatment Response Procedure Tolerated Well Pain Scale: 0-10 Numeric Is Patient Pain Free? Yes Yes WC - Visit Discharge Discharge Condition Stable Stable Ambulatory Status Ambulatory Ambulatory Transportation Private Auto Private Auto Medication Reconcilliation completed & No provided to patient/care provider Clinical Summary of Care Provided Yes Notes: pt instructed on application of circaids bilat Charges/Coding Visit Charges Office Visits / Consults: 51056 OV L3 Est 20min Assessment/Plan Assessment/Plan (1) Venous stasis dermatitis of both lower extremities: CODE(S): I87.2 - Venous insufficiency (chronic) (peripheral) (2) Chronic venous insufficiency: CODE(S): I87.2 - Venous insufficiency (chronic) (peripheral) (3) Lymphedema: CODE(S): I89.0 - Lymphedema, not elsewhere classified (4) Dependent edema: CODE(S): R60.9 - Edema, unspecified (5) Leg edema, right: CODE(S): R60.0 - Localized edema (6) Leg edema, left: CODE(S): R60.0 - Localized edema (7) Right leg swelling: CODE(S): M79.89 - Other specified soft tissue disorders (8) Left leg swelling: CODE(S): M79.89 - Other specified soft tissue disorders (9) Lipodermatosclerosis: CODE(S): M79.3 - Panniculitis, unspecified (10) Morbid obesity: CODE(S): E66.01 - Morbid (severe) obesity due to excess calories (11) DDD (degenerative disc disease), lumbosacral: CODE(S): M51.37 - Other intervertebral disc degeneration, lumbosacral reg ion (12) History of cellulitis: CODE(S): Z87.2 - Personal history of diseases of the skin and subcutaneous tissue (13) Osteoarthritis: (14) Status post bilateral knee replacements: CODE(S): Z96.653 - Presence of artificial knee joint, bilateral (15) Status post bilateral hip replacements: CODE(S): Z96.643 - Presence of artificial hip joint, bilateral PLAN: Plan This is a 64-year-old morbidly obese female who presented with severe swelling, edema, and lymphedema in her lower extremities, as well as severe venous stasis skin changes in her lower extremities. The right lower extremity was more severely affected. Manifestations included venous stasis dermatitis, hyperpigmentation, and lipodermatosclerosis. The patient is not active. 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 The swelling and edema in the patient's lower extremities is chronic in nature, and had recently become worse. A lengthy discussion has been undertaken with the patient regarding the conservative measures appropriate to the management of her lower extremity swelling and edema. Leg elevation has been encouraged. Elevation is to be to heart level, or higher, as much as possible. She has been encouraged to continue sleeping on a flat mattress at night. Her legs are to be elevated during daytime hours as well, as much as possible. Prolonged idle sitting has been discouraged. Activity/ambulation has been encouraged. Weight loss has also been discussed, and the patient underwent a dietary consultation at a recent clinic visit. Unfortunately, despite repeated admonitions, the patient has been noncompliant with leg elevation, avoidance of prolonged idle sitting, etc. In fact, she stated I have not had time. She admits that she continues to sleep in a chair with her legs in a dependent position. Recent laboratory results have been reviewed. Vascular studies have been completed recently, the results of which were as follows: There is no evidence of arterial occlusive disease in the lower extremities bilaterally. The patient's venous ultrasound study revealed no evidence of deep vein thrombosis on either side. The right great saphenous vein was noted to be incompetent below the knee. The right small saphenous vein was noted to be incompetent. The accessory saphenous vein in the right proximal calf was also noted to be incompetent. Given the patient's morbid obesity, she is probably not an ideal candidate for a venous ablation procedure at this time. However, this may be a consideration for the future. Because all lower extremity wounds and ulcerations are healed, we are to discharge the patient, with follow-up on an as-needed basis. For the purpose of long-term compression, the patient has received CircAid Velcro compression garments, and has been instructed today in the means of application. She has been instructed to don these CircAid garments on a daily basis, and they are to remain in place until bedtime. She will follow-up on an as needed basis. The patient has been advised to discuss weight loss options with her primary care physician. These options include, but are not limited to, ongoing dietary monitoring, exercise regimens, pharmacological means, bariatric surgery, etc. Total time: 24 minutes
--- NOTE | 2025-02-01 14:44 | WC ---
received call from pt. Pt asking if Wound Center RN/ would be able to write a letter stating that she does not have an infection. Informed pt that we have d/c pt 12/27/24 and we could not write her the letter. Also informed pt that when she was a pt here we did not do any type of would culture so we will not be able to write the letter. Informed pt that she could go to her PCP or a [facility] and see if they could write the letter. This is in regards to not being allowed the the [employer] b/c they heard she had an infection, which the pt states she does not have. Pt understands about the not being able to write the letter and she will try and call and set up appt with [facility]. Pt states that she is having some drainage in her legs. Asked pt if she has been keeping her legs elevated and using the circaides that she received prior to d/c. pt states not elevating her legs and that she is having a hard time putting the circaides on. informed pt if she isn't getting her legs up they may have some swelling in them and she wouldn't be able to get the socks up and could be a reason for the drainage she is having. This was also the reason why the pt was coming to the in the beginning. Instructed pt to elevate legs and if she needs to be reseen at the to call in to make an appt. Pt states she will try elevating her legs more and see how that goes.
== END 2025-01-02 10:27 | disposition home or self-care (01) ==
LOC: WC 10:15
PROVIDERS: PCP Family Medicine; Referring Provider Family Medicine; Visit Provider Surgery
DX: I89.0 Lymphedema, not elsewhere classified (principal); E66.01 Morbid (severe) obesity due to excess calories; Z68.43 Body mass index [BMI] 50.0-59.9, adult; M51.379 Other intervertebral disc degeneration, lumbosacral region without mention of lumbar back pain or lower extremity pain; Z79.1 Long term (current) use of non-steroidal anti-inflammatories (NSAID); Z96.653 Presence of artificial knee joint, bilateral; Z96.643 Presence of artificial hip joint, bilateral; I87.2 Venous insufficiency (chronic) (peripheral); R60.0 Localized edema; Z82.49 Family history of ischemic heart disease and other diseases of the circulatory system; M79.89 Other specified soft tissue disorders; Z87.2 Personal history of diseases of the skin and subcutaneous tissue; Z99.89 Dependence on other enabling machines and devices; G47.30 Sleep apnea, unspecified
CPT/HCPCS: 29580; 99213; G0463

== ENCOUNTER → 2025-02-20 | Outpatient (CLI) | payer MEDICARE, SELFPAY ==
[2025-02-20 16:43] LABS: Hematocrit 32.4 % (37-47); Hemoglobin 9.6 g/dL (12.0-15.0); Immature Granulocytes Count 0.020 X10^3/uL (0.0-0.0); Mean Corp Hgb Conc 29.6 g/dL (32-36); Mean Corpuscular Volume 95.6 fL (81-99); Mean Platelet Vol. 10.8 fl (6.2-12.0); NRBC Flagged by Analyzer 0 % (0-5); Platelet Count 298 K/mm3 (150-450); RBC Distribution Width CV 13.2 % (11.6-14.6); RBC Distribution Width SD 45.7 fl (35.1-43.9); Red Blood Count 3.39 M/mm3 (4.2-5.4); White Blood Count 6.0 K/mm3 (4.4-11.0)
[2025-02-20 17:07] LABS: AST(SGOT) 19 U/L (<=31); Alanine Aminotransfer ALT/SGPT 15 U/L (<=34); Albumin, Serum 3.8 g/dL (3.4-4.8); Alkaline Phosphatase 89 U/L (35-104); Anion Gap 9 (5-15); BUN 8 mg/dL (4-19); BUN/Creat Ratio 9.3 RATIO (10-20); Calcium,Total 9.2 mg/dL (7.6-11.0); Carbon Dioxide 26.8 mmol/L (21.0-32.0); Chloride 101 mmol/L (98-108); Cholesterol 152 mg/dL (<=200); Ferritin 15 ng/mL (22-378); Globulin 3.5 g/dL (2.2-4.2); Glucose 96 mg/dL (70-99); Low Density Lipoprotein Calc. 88 mg/dL; Potassium 4.7 mmol/L (3.3-5.1); Triglycerides 57 mg/dL; Very Low Density Lipoprotein 11 mg/dL (5-40); cholesterol:hdl ratio screen 2.88
[2025-02-20 17:26] LABS: Iron 23 ug/dL (50-170); Iron Binding Capacity,Total 358 ug/dL (250-450); Iron Binding Capacity,Unsat 335 ug/dL (228-428)
== END | disposition home or self-care (01) ==
LOC: VSLAB 11:46
PROVIDERS: PCP Family Medicine
DX: R06.09 Other forms of dyspnea (principal); Z13.1 Encounter for screening for diabetes mellitus; Z13.220 Encounter for screening for lipoid disorders; R53.83 Other fatigue
CPT/HCPCS: 36415; 80053; 80061; 82728; 83036; 83540; 83550; 84443; 85025; 86376; 86800

== ENCOUNTER → 2025-03-13 | Outpatient (CLI) | payer MEDICARE, SELFPAY ==
--- OUTSIDE RECORDS SUMMARY | 2025-03-13 06:57 | XMS RPT_ITS | CCD ---
Author Organization [facility] Care Team Providers Care Pt Skilled Name Role Phone Unavailable Unavailable Unavailable Clint Devine Unavailable Unavailable Clint Devine Unavailable Unavailable Clint Devine Unavailable Unavailable Clint Devine Unavailable Unavailable Ty Narayanan MD Primary Care Provider Ty Narayanan MD Primary Care Provider Ty Narayanan MD Primary Care Provider Dr. Ty Narayanan Primary Care Provider Dr. Ty Narayanan Referring Provider CARMELLA Beauchamp Attending Provider Dr. Rafael Morales Attending Provider [phone] Mark Mon Attending Provider Ty Narayanan MD Primary Care Provider Edil DIAPHRAGM BUILDER.Bronwyn NOONAN Unavailable Andrew DIAPHRAGM BUILDER.Yuri NOONANsse Unavailable TY NARAYANAN Primary Care Unavailable BRONWYN SOLO Referring BRONWYN Levy Attending UnavailDr. Ty Taylor MD Primary Care Provider Dr. Philomena Zhu MD Emergency Provider Unavailab Avery CHASE, Dr. Quach Attending Provider UnavailDr. Miguel Angel Urena MD Attending Provider Dr. Philomena Zhu MD Referring Provider UnavailDr. Miguel Angel Urena MD Other Provider Oracio CHASE Dr. Ty Primary Care Physician Audra CHASE, Dr. Quach Attending Physician Unavaila ble Audra CHASE, Dr. Quach Emergency Department Physici an Unavailable Sam CHASE, Dr. Michelle Attending Physician Sam CHASE, Dr. Michelle Nurse Practitioner Oracio CHASE, Dr. Soler Referring Provider Karyna CHASE, Dr. Binu Graf Attending Physician Karyna CHASE, Dr. Binu Graf Nurse Practitioner Sam CHASE, Dr. Michelle Referring Provider Oracio, Ty Primary Care Unavailable Oracio, Ty Referring Unavailable Binu Troncoso Attending Unavailable Oracio, Ty Primary Care Unavailable Philomena Zhu Attending Unavailable Binu Troncoso Attending Unavailable Oracio, Ty Primary Care Unavailable Oracio, Ty Referring Unavailable Oracio, Ty Primary Care Unavailable Miguel Angel Vargas Consulting Unavailable Sam, Miguel Angel Attending Unavailable Miguel Angel Vargas Referring Unavailable Philomena Zhu Referring Unavailable Oracio, Ty Primary Care Unavailable Miguel Angel Vargas Attending Unavailable Sam CHASE, Dr. Michelle Referring Provider Medications Current Medications Medication Drug Class(es) Dates Sig (Normalized) Sig (Original) cephalexin 500 mg oral capsule (18 sources) Cephalosporin Antibacterial Start: 11-09-2024 take 1 capsule by mouth every six hours Start: 01-02-2018 End: 08-17-2018 take 1 capsule [...] on above: Take 1 capsule by mo ut one time a week for 4 doses. doxycycline hyclate 100 mg oral tablet (15 sources) Tetracycline- class Drug Start: 05-04-2024 End: [...] take 1 capsule by mouth once daily Start: 08-16-2013 End: 09-07-2013 take 1 capsule by mouth once daily Fluoxetine 20 MG capsule Discontinued 20 mg PO DAILY August 16, 2013 12:00am September 07, 2013 10:05am Comment on above: Take 1 capsule by mo [facility] once daily. hydrocortisone 25 mg/ml topical cream [...] on above: Take 1 tablet by staci th every 8 hours as needed for pain. Take with food. Do not take the same day as you take naproxen levoFLOXacin 500 mg oral tablet (20 sources) Quinolone Antimicrobial Start: 11-07-2022 take 1 tablet by mouth every twenty-four hours Start: 06-17-2019 take 1 tablet by staci th once daily levoFLOXacin (LEVAQUIN) 500 mg tablet Take 500 mg by mouth once daily. 06/17/2019 Active Comment on above: Take 500 mg by mouth once daily. naproxen 500 mg oral tablet (20 sources) Nonsteroidal Anti-inflammatory Drug Start: 11-14-2022 Naproxen Active MG November 14, 2022 12:00am Start: 12-11-2021 End: 05-04-2024 Start: 12-20-2020 take 1 tablet by staci [...] mg oral capsule (20 sources) Benzodiazepine Start: 5 End: take 1 capsule by mouth at bedtime as needed temazepam (RESTORIL) 15 mg Indications: Insomnia, unspecified type Take 1 capsule by mouth at bedtime as needed for up to 180 days. 90 capsule 1 04/20/2024 10/17/2024 Active Start: 03-27-2017 End: 01-25-2025 take 1 capsule by mouth at bedtime as needed temazepam (RESTORIL) 15 mg Indications: Insomnia, unspecified type Take 1 capsule by mouth at bedtime as needed for up to 90 days. 90 capsule 10/27/2024 01/25/2025 Active Start: 12-29-2016 End: 01-29-2017 take 1 capsule by mouth at bedtime as needed for sleep Temazepam 15 MG capsule Discontinued 15 mg PO AT BEDTIME NEEDED as needed for Sleep 20 0 January 12, 2017 11:59am January 29, 2017 9:38pm Comment on above: TAKE 1 CAPSULE BY MO UTH AT BEDTIME NEEDED FOR 30 DAYS TAKE 1 CAPSULE BY MO UTH AT BEDTIME NEEDED Take 1 capsule by mo uth at bedtime as needed for up to 90 days. Completed/Discontinued Medications Medication Drug Class(es) Dates Sig (Normalized) Sig (Original) acetaminophen 500 mg oral tablet (14 sources) Start: 01-29-2017 End: 04-12-2017 take 1 [...] / HYDROcodone bitartrate 5 mg oral tablet (14 sources) Opioid Agonist Start: 08-31-2013 End: 09-07-2013 [...] / oxyCODONE hydrochloride 5 mg oral tablet (7 sources) Opioid Agonist Start: 05-01-2015 End: 06-26-2015 [...] ntal work aspirin 81 mg chewable tablet (20 sources) Platelet Aggregation Inhibitor, Nonsteroidal Anti-inflammatory Drug [...] by mouth once daily. 30 tablet 11 04/17/2020 05/04/2024 Discontinued Start: 01-12-2017 End: 05-04-2024 take 1 tablet by mouth once daily Comment on above: Take 1 tablet by [facility] once daily. ciprofloxacin 500 mg oral tablet (7 sources) Quinolone Antimicrobial Start: 01-13-20 End: 01-30-20 take 1 tablet by mouth twice daily Ciprofloxacin Hcl 500 MG tablet Discontinued 500 mg PO TWICE A DAY 0 0 January 12, 2017 12:00am January 29, 2017 9:39pm clindamycin 150 mg oral capsule (7 sources) Lincosamide Antibacterial Start: 12-30-19 End: 01-13-20 [...] Each 0 12/04/2017 Active Comment on above: HCPC E0651/Segmental Compressor HCPC E067/ Leg Appliance Dx: Lymphedema I89.0 Right Lower Extremity Lifetime Usage docusate sodium 100 mg oral capsule (14 sources) Star t: 04-24 End: 08-09 take 1 capsule by mouth twice daily as needed for constipation Docusate Sodium (Colace) 100 MG capsule Discontinued 100 mg PO TWICE DAILY NEEDED as needed for Constipation 10 May 01, 2015 1:00am June 26, 2015 4:30pm 0.4 ml enoxaparin sodium 100 mg/ml prefilled syringe (7 sources) Low Molecular Weight Heparin Star t: 12-22 17 End: 12-10 17 Enoxaparin 40 MG/0.4 ML syringe Discontinued 40 mg SC DAILY 1 January 12, 2017 12:00am January 29, 2017 9:38pm ergocalciferol 1.25 mg oral capsule (7 sources) Provitamin D2 Compound Star t: 04-24 15 End: 08-09 16 Ergocalciferol (Vitamin D2) (Vitamin D) 50,000 UNIT capsule Discontinued 42829 U PO Q7D May 19, 2014 1:00am June 26, 2015 4:30pm gabapentin 300 mg oral capsule (7 sources) Anti-epileptic Agent Star t: 07-22 14 End: 08-21 14 take 1 capsule by mouth three times daily at mealtime Gabapentin 300 MG capsule Discontinued 300 mg PO 3 TIMES DAILY WITH MEALS August 16, 2013 12:00am September 07, 2013 10:05am medroxyPROGESTERone acetate 5 mg oral tablet (3 sources) Progestin Star t: 12-21 End: 01-22 23 take 1 tablet by mouth once daily medroxyPROGESTERone (PROVERA) 5 mg tablet Take 1 tablet by mouth once daily. 30 tablet 5 12/30/2022 02/16/2023 Discontinued Comment on above: Take 1 tablet by [facility] once daily. megestrol acetate 20 mg oral tablet (14 sources) Progestin Star t: 01-22 23 End: 04-23 25 take 1 tablet by mouth once daily [...] once daily. meloxicam 15 mg oral tablet (7 sources) Nonsteroidal Anti-inflammatory Drug Start: 08-16-2013 End: 08-31-2013 Meloxicam 15 MG tablet Discontinued 1 {tbl} PO DAILY August 16, 2013 12:00am August 31, 2013 12:20pm menthol 0.0044 mg/mg / zinc oxide 0.2 mg/mg topical ointment (7 sources) Start: 01-29-2017 End: 03-27-2017 Menthol-Zinc Oxide [...] then BID x 3 days then daily. Buhl-3 Fatty Acids-Fish Oil (3 sources) Start: 05-19-2014 End: 06-26-2015 Buhl-3 Fatty Acids-Fish Oil Discontinued 1 EACH PO DAILY May 20, 2014 12:14am June 26, 2015 4:29pm Start: 05-19-2014 End: 06-26-2015 Buhl-3 Fatty Acids-Fish Oil Discontinued 1 EACH PO DAILY May 19, 2014 1:00am June 26, 2015 4:29pm Start: 05-19-2014 End: 06-26-2015 Buhl-3 Fatty Acids-Fish Oil Discontinued 1 EACH PO DAILY May 19, 2014 12:00am June 26, 2015 3:29pm Buhl-3 Fatty Acids-Fish Oil 1 EACH capsule (4 sources) Start: 05-19-2014 End: 06-26-2015 Buhl-3 Fatty Acids-Fish Oil 1 EACH capsule Discontinued 1 NMA PO DAILY May 19, 2014 1:00am June 26, 2015 4:29pm oxyCODONE hydrochloride 5 mg oral tablet (14 sources) Opioid Agonist Start: 01-12-2017 End: 04-12-2017 take 1 tablet by mouth every four hours as needed for pain Oxycodone 5 MG tablet Discontinued 5 mg PO EVERY 4 HOURS NEEDED as needed for Moderate Pain (pain scale 4-5) 30 0 January 29, 2017 9:39pm April 12, 2017 12:22pm polysaccharide iron complex 150 mg oral capsule (7 sources) Start: 01-29-2017 End: 03-27-2017 Polysaccharide Iron Complex (Ferrex 150) 150 MG capsule Discontinued 150 mg PO DAILY WITH MEALS January 29, 2017 1:00am March 27, 2017 11:57am promethazine hydrochloride 25 mg oral tablet (7 sources) Phenothiazine Start: 05-01-2015 End: 06-26-2015 take [...] 04-20-2019 04-20-2019 Chronic Chronic ulcer of skin (8 sources) Chronic ulcer of skin of ankle; Translations: [Non-pressure chronic ulcer of right ankle limited to breakdown of skin] Onset: 12-26-2024 08-31-2018 Chronic Complications of surgical procedures or medical care (7 sources) Wound dehiscence; Translations: [Disruption of external [...] 08-09-2008 08-09-2008 Chronic Intestinal obstruction without hernia (14 sources) Obstruction of small intestine co-occurrent and [...] Onset: 05-04-2024 Chronic Open wounds of extremities (8 sources) Injury of right leg; Translations: [Unspecified open wound, right lower leg, initial encounter] Onset: 12-26-2024 11-09-2024 Episodic Osteoarthritis (20 sources) Bilateral arthritis of knees; Translations: [Bilateral primary osteoarthritis of knee] Onset: 01-08-2011 Resolved: 02-06-2015 Chronic Other connective tissue disease (20 sources) History of total knee arthroplasty; Translations: [Presence of right artificial knee joint] Onset: 05-01-2014 Resolved: 10-03-2014 10-03-2014 Chronic Other connective tissue disease (10 sources) History of repair of hip joint; Translations: [Presence of artificial hip joint, bilateral] 03-19-2022 Chronic Other connective tissue disease (2 sources) History of arthroplasty of right ankle; Translations: [Presence of right artificial ankle joint] 11-25-2024 Chronic Other connective tissue disease (1 source) Presence of artificial knee joint, bilateral; Translations: [Presence of artificial knee joint, bilateral] Onset: 01-09-2025 Chronic Other connective tissue disease (1 source) Presence of artificial hip joint, bilateral; Translations: [Presence of artificial hip joint, bilateral] Onset: 01-09-2025 Chronic Other connective tissue disease (7 sources) Swelling of lower limb; Translations: [Other specified soft tissue disorders] 08-31-2018 Episodic Other connective tissue disease (5 sources) Swelling of left lower limb; Translations: [Other specified soft tissue disorders] 11-25-2024 Episodic Other connective tissue disease (5 sources) Swelling of right lower limb; Translations: [Other specified soft tissue disorders] 11-25-2024 Episodic Other connective tissue disease (5 sources) Lipodermatosclerosis; Translations: [Panniculitis, unspecified] 12-01-2024 Episodic Other connective tissue disease (1 source) Other specified soft tissue disorders; Translations: [Other specified soft tissue disorders] Onset: 01-09-2025 Episodic Other connective tissue disease (1 source) Panniculitis, unspecified; Translations: [Panniculitis, unspecified] Onset: 01-09-2025 Episodic Other diseases of veins and lymphatics (20 sources) Lymphedema of right lower limb; Translations: [Lymphedema, not elsewhere classified] Onset: 05-01-2014 11-04-2017 Chronic Other diseases of veins and lymphatics (20 sources) Stasis dermatitis of right lower extremity due to peripheral venous hypertension; Translations: [Chronic venous hypertension (idiopathic) with inflammation of right lower extremity] Onset: 04-28-2017 04-28-2017 Chronic Other diseases of veins and lymphatics (5 sources) Lymphedema; Translations: [Lymphedema, not elsewhere classified] 11-25-2024 Chronic Other diseases of veins and lymphatics (1 source) Lymphedema, not elsewhere classified; Translations: [Lymphedema, not elsewhere classified] Onset: 01-09-2025 Chronic Other diseases of veins and lymphatics (20 sources) Peripheral venous insufficiency; Translations: [Venous insufficiency (chronic) (peripheral)] Onset: 04-28-2017 04-28-2017 Episodic Other diseases of veins and lymphatics (5 sources) Disorder of vein of lower extremity; Translations: [Venous insufficiency (chronic) (peripheral)] 11-25-2024 Episodic Other diseases of veins and lymphatics (1 source) Venous insufficiency (chronic) (peripheral); Translations: [Venous insufficiency (chronic) (peripheral)] Onset: 01-09-2025 Episodic Other female genital disorders (20 sources) [...] Chronic Other nutritional; endocrine; and metabolic disorders (10 sources) Morbid obesity; Translations: [Morbid (severe) obesity due to excess calories] 08-31-2018 Chronic Other nutritional; endocrine; and metabolic disorders (1 source) Severe obesity; Translations: [Morbid (severe) obesity due to excess calories] Chronic Other nutritional; endocrine; and metabolic disorders (1 source) Morbid (severe) obesity due to excess calories; Translations: [Morbid (severe) obesity due to excess calories] Onset: 01-09-2025 Chronic Other skin disorders (10 sources) History of cellulitis; Translations: [Personal history of diseases of the skin and subcutaneous tissue] 08-31-2018 Episodic Other skin disorders (1 source) Personal history of diseases of the skin and subcutaneous tissue; Translations: [Personal history of diseases of the skin and subcutaneous tissue] Onset: 01-09-2025 Episodic Peripheral and visceral atherosclerosis (1 source) Peripheral vascular disease, unspecified; Translations: [Peripheral vascular disease, unspecified] Onset: 01-09-2025 Chronic Residual codes; unclassified (20 sources) Obstructive sleep apnea syndrome; Translations: [Obstructive sleep apnea (adult) (pediatric)] Onset: 06-09-2011 03-18-2021 Chronic Residual codes; unclassified (1 source) Obstructive sleep apnea (adult) (pediatric); Translations: [[place] on CPAP] Onset: 03-18-2021 Chronic Residual codes; unclassified (2 sources) Sleep apnea; Translations: [Sleep apnea, unspecified] 11-25-2024 Chronic Residual codes; unclassified (2 sources) Dependence on continuous positive airway pressure ventilation; Translations: [Dependence on other enabling machines and devices] 11-25-2024 Chronic Comment on above: NON COMPLIANT, UNABL E TO TOLERATE MASK Residual codes; unclassified (20 sources) Insomnia; Translations: [Insomnia, unspecified] Onset: 10-11-2013 Episodic Residual codes; unclassified (7 sources) Edema of lower extremity; Translations: [Localized edema] 08-31-2018 Episodic Residual codes; unclassified (5 sources) Edema of left lower limb; Translations: [Localized edema] 11-25-2024 Episodic Residual codes; unclassified (5 sources) Edema of right lower limb; Translations: [Localized edema] 11-25-2024 Episodic Residual codes; unclassified (2 sources) History of hernia repair; Translations: [Other specified postprocedural states] 11-25-2024 Episodic Residual codes; unclassified (5 sources) Dependent edema; Translations: [Edema, unspecified] 11-25-2024 Episodic Residual codes; unclassified (1 source) Edema, unspecified; Translations: [Edema, unspecified] Onset: 01-09-2025 Episodic Residual codes; unclassified (1 source) Localized edema; Translations: [Localized edema] Onset: 01-09-2025 Episodic Skin and subcutaneous tissue infections (10 sources) Cellulitis; Translations: [Cellulitis, unspecified] Onset: 05-04-2024 09-13-2017 Episodic Spondylosis; intervertebral disc disorders; other back problems (20 sources) Degeneration of lumbar intervertebral disc; Translations: [Other intervertebral disc degeneration, lumbar region] Onset: 01-06-2012 01-06-2012 Chronic Spondylosis; intervertebral disc disorders; other back problems (7 sources) Low back pain; Translations: [Low back pain] 03-19-2022 Episodic Unclassified (7 sources) PERIPROSTETIC KNEE INFECTION 03-19-2022 Comment on [...] Facility Wound Ctr History AND Physic connie 12-29-2024 Wound Ctr History & Physical [facility] [place] [address] H P Exam - Wound Care 12/29/24 1144 MR#: [id number] Acct: [id number] Name: MEGHA CIFUENTES Rep #: [id number] : 1960 64 From: Binu Troncoso MD PCP: Dr. Ty Narayanan MD Status:REG RCR Location: History of Present Illness Date of Service: 12/27/24 Chief Complaint: Bilateral lower extremity swelling and edema; severe venous stasis dermatitis History of Wound: This is a 64-year-old morbidly obese female who presented with severe swelling and edema in both lower extremities, which had been chronic in nature. 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 She presented with severe swelling, edema, and lymphedema in both lower extremities. Her lower extremities also demonstrated severe, exudative venous stasis dermatitis, hyperpigmentation, and lipodermatosclerosis. The patient claimed to sleep on a flat mattress at night. She is not active. She denied a history of thrombophlebitis. The patient denied a history of diabetes mellitus, myocardial infarction, congestive heart failure, cerebrovascular accident, hypertension, pulmonary disease, renal disease, hyperlipidemia, and thyroid disease. The patient was seen and evaluated in the [facility] Emergency Department on November 09, 2024, at which time a prescription for oral Keflex was issued for lower extremity cellulitis. [facility] Medical History Lipodermatosclerosis Dependent edema Venous stasis dermatitis of both lower extremities Leg edema, left Leg edema, right Left leg swelling Right leg swelling Lymphedema Chronic venous insufficiency Wears dentures Alcohol use Arthritis Restless legs [...] Smoking Status: Never smoker alcohol intake: never Physical Exam Const alert, oriented x3, no apparent distress, no limitations and well nourished Constitutional Narrative: The patient is morbidly obese. Her BMI is 54.2. General Appearance: cooperative, comfortable and well developed Orientation / Consciousness: awake, oriented to person, oriented to place and oriented to time Exam Limitations: no limitations Nutritional Appearance: obese morbidly obese HEENT normocephalic and head/scalp atraumatic Head and Scalp: normal to inspection, normocephalic and atraumatic Face and Sinus: normal facial exam Nose: external nose normal External Ear: external ears normal Eyes EOMs intact bilaterally General Eye: normal appearance of both eyes Neck full ROM Resp normal respiratory effort, normal air movement, no retractions and no use of accessory muscles Effort and Inspection: able to speak in complete sentences Extremity no calf tenderness General Extremity: Negative for clubbing or cyanosis Skin Wound Narrative: Moderate swelling, edema, and lymphedema persist in the patient's lower extremities bilaterally. There has been mild improvement. The excoriations in the right lower extremity are healed and epithelialized. There are no remaining wounds or ulcerations. The chronic changes related to the patient's chronic venous disease remain, including hyperpigmentation and lipodermatosclerosis in the gaiter areas bilaterally. Neuro oriented x3, CN's II-XII intact bilaterally, moves all extremities, no focal motor deficits and no sensory deficits noted (more content not included)... Normal [facility] Wound Ctr History AND Physic connie 12-22-2024 Wound Ctr History & Physical [facility] [address] [place] [address] H P Exam - Wound Care 12/22/24 1358 MR#: [id number] Acct: [id number] Name: MEGHA CIFUENTES Rep #: [id number] : 1960 64 From: Binu Troncoso MD PCP: Dr. Ty Narayanan MD Status:DIS RCR Location: History of Present Illness Date of Service: 12/20/24 Chief Complaint: Bilateral lower extremity swelling and edema; severe venous stasis dermatitis History of Wound: This is a 63-year-old morbidly obese female who presented with severe swelling and edema in both lower extremities, which had been chronic in nature. 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 She presented with severe swelling, edema, and lymphedema in both lower extremities. Her lower extremities also demonstrated severe, exudative venous stasis dermatitis, hyperpigmentation, and lipodermatosclerosis. The patient claimed to sleep on a flat mattress at night. She is not active. She denied a history of thrombophlebitis. The patient denied a history of diabetes mellitus, myocardial infarction, congestive heart failure, cerebrovascular accident, hypertension, pulmonary disease, renal disease, hyperlipidemia, and thyroid disease. The patient was seen and evaluated in the [facility] Emergency Department on November 09, 2024, at which time a prescription for oral Keflex was issued for lower extremity cellulitis. [facility] Medical History Lipodermatosclerosis Dependent edema Venous stasis dermatitis of both lower extremities Leg edema, left Leg edema, right Left leg swelling Right leg swelling Lymphedema Chronic venous insufficiency Wears dentures Alcohol use Arthritis Restless legs [...] never Vital Signs Vital Signs Vital Signs: Weight Weight: 377 lb 6.902 oz Physical Exam Const alert, oriented x3, no apparent distress, no limitations and well nourished Constitutional Narrative: The patient is morbidly obese. Her BMI is 54.2. General Appearance: cooperative, comfortable and well developed Orientation / Consciousness: awake, oriented to person, oriented to place and oriented to time Exam Limitations: no limitations Nutritional Appearance: obese morbidly obese HEENT normocephalic and head/scalp atraumatic Head and Scalp: normal to inspection, normocephalic and atraumatic Face and Sinus: normal facial exam Nose: external nose normal External Ear: external ears normal Eyes EOMs intact bilaterally General Eye: normal appearance of both eyes Neck full ROM Resp normal respiratory effort, normal air movement, no retractions and no use of accessory muscles Effort and Inspection: able to speak in complete sentences Extremity no calf tenderness General Extremity: Negative for clubbing or cyanosis Skin Wound Narrative: Severe swelling, edema, and lymphedema persist in the patient's lower extremities bilaterally. There has been no significant improvement. There is a superficial excoriation with denudation of epithelial layers on the right posterior calf. The base of the excoriation appears pink and healthy in appearance. Dimensions are documented elsewhere. This area is surrounded by mild hyperpigmentation and lipodermatosclerosis, which is more pronounced in the right (more content not included)... Normal [facility] Wound Ctr History AND Physic connie 12-09-2024 Wound Ctr History & Physical [facility] [address] [place] [address] H P Exam - Wound Care 12/09/24 1214 MR#: [id number] Acct: [id number] Name: MEGHA CIFUENTES Rep #: [id number] : 1960 63 From: Binu Troncoso MD PCP: Dr. Ty Narayanan MD Status:REG RCR Location: History of Present Illness Date of Service: 12/06/24 Chief Complaint: Bilateral lower extremity swelling and edema; severe venous stasis dermatitis History of Wound: This is a 63-year-old morbidly obese female who presented with severe swelling and edema in both lower extremities, which had been chronic in nature. 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 She presented with severe swelling, edema, and lymphedema in both lower extremities. Her lower extremities also demonstrated severe, exudative venous stasis dermatitis, hyperpigmentation, and lipodermatosclerosis. The patient claimed to sleep on a flat mattress at night. She is not active. She denied a history of thrombophlebitis. The patient denied a history of diabetes mellitus, myocardial infarction, congestive heart failure, cerebrovascular accident, hypertension, pulmonary disease, renal disease, hyperlipidemia, and thyroid disease. The patient was seen and evaluated in the [facility] Emergency Department on November 09, 2024, at which time a prescription for oral Keflex was issued for lower extremity cellulitis. [facility] Medical History Lipodermatosclerosis Dependent edema Venous stasis dermatitis of both lower extremities Leg edema, left Leg edema, right Left leg swelling Right leg swelling Lymphedema Chronic venous insufficiency Wears dentures Alcohol use Arthritis Restless legs [...] never Vital Signs Vital Signs Vital Signs: Weight Weight: 377 lb 6.902 oz Physical Exam Const alert, oriented x3, no apparent distress, no limitations and well nourished Constitutional Narrative: The patient is morbidly obese. Her BMI is 54.2. General Appearance: cooperative, comfortable and well developed Orientation / Consciousness: awake, oriented to person, oriented to place and oriented to time Exam Limitations: no limitations Nutritional Appearance: obese morbidly obese HEENT normocephalic and head/scalp atraumatic Head and Scalp: normal to inspection, normocephalic and atraumatic Face and Sinus: normal facial exam Nose: external nose normal External Ear: external ears normal Eyes EOMs intact bilaterally General Eye: normal appearance of both eyes Neck full ROM Resp normal respiratory effort, normal air movement, no retractions and no use of accessory muscles Effort and Inspection: able to speak in complete sentences Extremity no calf tenderness General Extremity: Negative for clubbing or cyanosis Skin Wound Narrative: Severe swelling, edema, and lymphedema persist in the patient's lower extremities bilaterally. There has been no significant improvement. There is a superficial excoriation with denudation of epithelial layers on the right posterior calf. The base of the excoriation appears pink and healthy in appearance. Dimensions are documented elsewhere. This area is surrounded by mild hyperpigmentation and lipodermatosclerosis, which is more pronounced in the right (more content not included)... Normal [facility] Wound Ctr History AND Physic connie 12-01-2024 Wound Ctr History & Physical [facility] [address] [place] [address] H P Exam - Wound Care 12/01/24 1307 MR#: [id number] Acct: [id number] Name: MEGHA CIFUENTES Rep #: [id number] : 1960 63 From: Binu Troncoso MD PCP: Dr. Ty Narayanan MD Status:REG RCR Location: History of Present Illness Date of Service: 11/29/24 Chief Complaint: Bilateral lower extremity swelling and edema; severe venous stasis dermatitis History of Wound: This is a 63-year-old morbidly obese female who presented with severe swelling and edema in both lower extremities, which had been chronic in nature. 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 She presented with severe swelling, edema, and lymphedema in both lower extremities. Her lower extremities also demonstrated severe, exudative venous stasis dermatitis, hyperpigmentation, and lipodermatosclerosis. The patient claimed to sleep on a flat mattress at night. She is not active. She denied a history of thrombophlebitis. The patient denied a history of diabetes mellitus, myocardial infarction, congestive heart failure, cerebrovascular accident, hypertension, pulmonary disease, renal disease, hyperlipidemia, and thyroid disease. The patient was seen and evaluated in the [facility] Emergency Department on November 09, 2024, at which time a prescription for oral Keflex was issued for lower extremity cellulitis. [facility] Medical History Lipodermatosclerosis Dependent edema Venous stasis dermatitis of both lower extremities Leg edema, left Leg edema, right Left leg swelling Right leg swelling Lymphedema Chronic venous insufficiency Wears dentures Alcohol use Arthritis Restless legs [...] never Vital Signs Vital Signs Vital Signs: Weight Weight: 377 lb 6.902 oz Physical Exam Const alert, oriented x3, no apparent distress, no limitations and well nourished Constitutional Narrative: The patient is morbidly obese. Her BMI is 53.1. General Appearance: cooperative, comfortable and well developed Orientation / Consciousness: awake, oriented to person, oriented to place and oriented to time Exam Limitations: no limitations Nutritional Appearance: obese morbidly obese HEENT normocephalic and head/scalp atraumatic Head and Scalp: normal to inspection, normocephalic and atraumatic Face and Sinus: normal facial exam Nose: external nose normal External Ear: external ears normal Eyes EOMs intact bilaterally General Eye: normal appearance of both eyes Neck full ROM Resp normal respiratory effort, normal air movement, no retractions and no use of accessory muscles Effort and Inspection: able to speak in complete sentences Extremity no calf tenderness General Extremity: Negative for clubbing or cyanosis Skin Wound Narrative: Severe swelling, edema, and lymphedema persist in the patient's lower extremities bilaterally. There are no lizzette open wounds or ulcerations. Scaly venous stasis dermatitis, hyperpigmentation, and lipodermatosclerosis are noted in the gaiter areas bilaterally, more pronounced in the right lower extremity. There is no overt sign of infection or cellulitis. No drainage is noted. Neuro oriented x3, CN's II-XII intact bilaterally, moves all extremities, n (more content not included)... Normal [facility] Arterial study reportOrdered By: Binu Troncoso on 11-29-2024 Noninvasive arteriosclerosis study report [facility] [address] [place] [address] Lower Ext Art Exam w/o Exercis 11/29/24 1117 MR#: [id number] Acct: [id number] Name: MEGHA CIFUENTES Rep #:[id number] : 1960 63 From: Binu Troncoso MD Attending Dr: Dr. Binu Troncoso MD Status: REG RCR Ordering Dr: Miguel Angel Vargas MD Date: Location: Sex: F C Admitted: Reason For Study Reason For Study: Right leg ulcer Procedure A bilateral lower extremity continuous wave Doppler with analog waveform analysis,segmental pressures,and ankle brachial indexes without exercise. Left Segmental Pressures Left brachial= 155mmHg. Left posterior tibial artery = 206mmHg. Left dorsalis pedis artery = 222mmHg. Left digit = 118 mmHg. The left dorsalis pedis waveforms are triphasic. The left posterior tibialartery waveforms are triphasic. Right Segmental Pressures Right brachial= 163mmHg. Right posterior tibial artery = >254mmHg. Right dorsalis pedis artery = >254mmHg. Right digit = 126 mmHg. The right dorsalis pedis waveforms are triphasic. The right posterior tibial artery waveforms are triphasic. Indices The right ankle brachial index by the dorsalis pedis is NC. The right ankle brachial index by the posterior tibial artery is NC. The right digital-brachial index is 0.77. The left ankle brachial index by the dorsalis pedis is 1.36. The left ankle brachial index by the posterior tibial artery is 1.26. The left digital-brachial index is 0.72. VL/Lower Ext Art Exam w/o Exercis Interpretation Summary Triphasic Doppler waveforms are noted at ankle level bilaterally. Pulse-volume recordings appear satisfactory at all levels bilaterally. The resting right ankle-brachial index could not be determined due to the non-compressibility of the vasculature at ankle level on the right. The resting left ankle-brachial index is normal. Digital-brachial indices are normal bilaterally. There is evidence of arterial calcification at ankle level on the right. There is no evidence of significant arterial occlusive disease in the lower extremities bilaterally. Ordering Physician: Miguel Angel Vargas Referring Physician: MD Ty Narayanan Performed By: Katie Wynn RVT 11/29/242153 Date _ Binu Troncoso MD CC: Dr. Binu Troncoso MD; Dr. Ty Narayanan MD; Dr. Miguel Angel Vargas MD ~ Date Dictated: 11/29/247 Date Transcribed: 11/29/242153 Facing Cutting Machine Operator: Signed [facility] Work Phone: Lower Ext Art Exam w/o Exerc yola 11-29-2024 Lower Ext Art Exam w/o Exercis [facility] [address] [place] [address] Lower Ext Art Exam w/o Exercis 11/29/24 1117 MR#: [id number] Acct: [id number] Name: MEGHA CIFUENTES Rep #: [id number] : 1960 63 From: Binu Troncoso MD Attending Dr: Dr. Binu Troncoso MD Status: REG RCR Ordering Dr: Miguel Angel Vargas MD Date: 11/29/24 Location: Sex: F C Admitted: Reason For Study Reason For Study: Right leg ulcer Procedure A bilateral lower extremity continuous wave Doppler with analog waveform analysis,segmental pressures,and ankle brachial indexes without exercise. Left Segmental Pressures Left brachial= 155mmHg. Left posterior tibial artery = 206mmHg. Left dorsalis pedis artery = 222mmHg. Left digit = 118 mmHg. The left dorsalis pedis waveforms are triphasic. The left posterior tibial artery waveforms are triphasic. Right Segmental Pressures Right brachial= 163mmHg. Right posterior tibial artery = >254mmHg. Right dorsalis pedis artery = >254mmHg. Right digit = 126 mmHg. The right dorsalis pedis waveforms are triphasic. The right posterior tibial artery waveforms are triphasic. Indices The right ankle brachial index by the dorsalis pedis is NC. The right ankle brachial index by the posterior tibial artery is NC. The right digital-brachial index is 0.77. The left ankle brachial index by the dorsalis pedis is 1.36. The left ankle brachial index by the posterior tibial artery is 1.26. The left digital-brachial index is 0.72. VL/Lower Ext Art Exam w/o Exercis Interpretation Summary Triphasic Doppler waveforms are noted at ankle level bilaterally. Pulse-volume recordings appear satisfactory at all levels bilaterally. The resting right ankle-brachial index could not be determined due to the non- compressibility of the vasculature at ankle level on the right. The resting left ankle-brachial index is normal. Digital- brachial indices are normal bilaterally. There is evidence of arterial calcification at ankle level on the right. There is no evidence of significant arterial occlusive disease in the lower extremities bilaterally. Ordering Physician: Miguel Angel Vargas Referring Physician: MD Ty Narayanan Performed By: Katie Wynn, RVT 11/29/242153 Date Binu Troncoso MD CC: Dr. Binu Troncoso MD; Dr. Ty Narayanan MD; Dr. Miguel Angel Vargas MD Date Dictated: 11/29/24 1117 Date Transcribed: 11/29/242153 Facing Cutting Machine Operator: Signed Normal [facility] Venous Duplex US - [facility] 11-29-2024 Venous Duplex US - [place] Extrem [facility] [address] [place] [address] Venous Duplex US - [facility] 11/29/24 1011 MR#: [id number] Acct: [id number] Name: MEGHA CIFUENTES Rep #: [id number] : 1960 63 From: Binu Troncoso MD Attending Dr: Dr. Binu Troncoso MD Status: REG RCR Ordering Dr: Miguel Angel Vargas MD Date: 11/29/24 Location: Sex: F C Admitted: Reason For Study Reason For Study: Right leg ulcer RIGHT LEFT CFV is compressible, spontaneous, phasic, competent CFV is compressible, spontaneous, phasic, competent, and demonstrates normal augmentation. and demonstrates normal augmentation. FV is compressible, spontaneous, phasic, competent FV is compressible, spontaneous, phasic, competent and demonstrates normal augmentation. and demonstrates normal augmentation. FV distal not visualized due to patient body habitus. FV visualized with color only, appears patent. POP V is compressible, phasic, and INCOMPETENT for POP V is compressible, spontaneous, phasic, competent greater than 1.0 second. and demonstrates normal augmentation. T/P Trunk is compressible. T/P Trunk is compressible. PTV is compressible. PTV is compressible. RT PerV is compressible. RT PerV is compressible. Calf vein only visualized at distal calf. Calf vein only visualized at distal calf. SFJ is competent and measures 0.85 cm. SFJ is competent and measures 0.99 cm. GSV proximal thigh measures 0.57 x 0.57 cm. GSV proximal thigh measures 0.59 x 0.61 cm. GSV above knee is competent. GSV at knee measures 0.33 x 0.32 cm. GSV at knee measures 0.35 x 0.32 cm. GSV is competent throughout. GSV below knee is INCOMPETENT for greater than 0.5 SSV mid calf is competent and measures 0.60 cm. seconds. ASV proximal calf is INCOMPETENT for greater than 0.5 seconds and measures 0.40 x 0.44 cm. SSV mid calf is INCOMPETENT for greater than 0.5 seconds and measures 0.62 cm. Procedure This is a venous duplex using B-mode, color flow and spectral Doppler. Exam performed in department. Patient was scanned in reverse Trendelenburg position during reflux assessment. Technically difficult study due to patient body habitus and edema. A preliminary report was called and/or faxed to [facility]. VL/Venous Duplex US - Aguilar Extrem Interpretation Summary Deep veins of the lower extremities are bilaterally patent and compressible segmentally. There is no evidence of deep vein thrombosis on either side. The distal right femoral vein was not visualized. The deep veins of the right and left proximal calf were not visualized. The right popliteal vein is incompetent. Valvular competence appears intact within the proximal deep venous system on the left . The great saphenous veins appear bilaterally patent and compressible segmentally. Sapheno-femoral junctions are bilaterally competent . The right great saphenous vein appears competent above the knee. The right great saphenous vein appears incompetent below the knee. The left great saphenous vein appears segmentally competent. The right small saphenous vein is patent and incompetent. The left small saphenous vein is patent and competent. The accessory saphenous vein in the right proximal calf is incompetent. Ordering Physician: Miguel Angel Vargas Referring Physician: Ty Narayanan Performed By: Katie Wynn RVT 11/29/242213 Date Binu Troncoso MD CC: Dr. Binu Troncoso MD; Dr. Ty Narayanan MD; Dr. Miguel Angel Vargas MD Date Dictated: 11/29/24 1011 Date Transcribed: 11/29/242213 Facing Cutting Machine Operator: Signed Normal [facility] Venous duplex ultrasound rep ortOrdered By: Binu Troncoso on 11-29-2024 US Vein [facility] [address] [place] [address] Venous Duplex US - Aguilar Extrem 11/29/24 1011 MR#: [id number] Acct: [id number] Name: MEGHA CIFUENTES Rep #:[id number] : 1960 63 From: Binu Troncoso MD Attending Dr: Dr. Binu Troncoso MD Status: REG RCR Ordering Dr: Miguel Angel Vargas MD Date: Location: Sex: F C Admitted: Reason For Study Reason For Study: Right leg ulcer RIGHT LEFT CFV is compressible, spontaneous, phasic, competent CFV is compressible, spontaneous, phasic, competent, and demonstrates normal augmentation. and demonstrates normal augmentation. FV is compressible, spontaneous, phasic, competent FV is compressible, spontaneous, phasic, competent and demonstrates normal augmentation. and demonstrates normal augmentation. FV distal not visualized due to patient body habitus. FV visualized with color only, appears patent. POP V is compressible, phasic, and INCOMPETENT for POP V is compressible, spontaneous, phasic, competent greater than 1.0 second. and demonstrates normal augmentation. T/P Trunk is compressible. T/P Trunk is compressible. PTV is compressible. PTV is compressible. RT PerV is compressible. RT PerV is compressible. Calf vein only visualized at distal calf. Calf vein onlyvisualized at distal calf. SFJ is competent and measures 0.85 cm. SFJ is competent and measures 0.99 cm. GSV proximal thigh measures 0.57 x 0.57 cm. GSV proximal thigh measures 0.59 x 0.61 cm. GSV above knee is competent. GSV at knee measures 0.33 x 0.32 cm. GSV at knee measures 0.35 x 0.32 cm. GSV is competent throughout. GSV below knee is INCOMPETENT for greater than 0.5 SSV mid calf is competent and measures 0.60 cm. seconds. ASV proximal calf is INCOMPETENT for greater than 0.5 seconds and measures 0.40 x 0.44 cm. SSV mid calf is INCOMPETENT for greater than 0.5 seconds and measures 0.62 cm. Procedure This is a venous duplex using B-mode, color flow and spectral Doppler. Exam performed in department. Patient was scanned in reverse Trendelenburg position during reflux assessment. Technically difficult study due to patient body habitus and edema. A preliminary report was called and/or faxed to [facility]. VL/Venous Duplex US - Aguilar Extrem Interpretation Summary Deep veins of the lower extremities are bilaterally patent and compressible segmentally. There is no evidence of deep vein thrombosis on either side. The distal right femoral vein was not visualized. The deep veins of the right and left proximal calf were not visualized. The right popliteal vein is incompetent. Valvular competence appears intact within the proximal deep venous system on the left . The great saphenous veins appear bilaterally patent and compressible segmentally. Sapheno-femoral junctions are bilaterally competent . The right great saphenous vein appears competent above the knee. The right great saphenous vein appears incompetent below the knee. The left great saphenous vein appears segmentally competent. The right small saphenous vein is patent and incompetent.The left small saphenous vein is patent and competent. The accessory saphenous vein in the right proximal calf is incompetent. Ordering Physician: Miguel Angel Vargas Referring Physician: Ty Narayanan Performed By: Katie Wynn RVT 11/29/242213 Date _ Binu Troncoso MD CC: Dr. Binu Troncoso MD; Dr. Ty Narayanan MD; Dr. Miguel Angel Vargas MD ~ Date Dictated: 11/29/24 1011 Date Transcribed: 11/29/242213 Facing Cutting Machine Operator: Signed [facility] Work Phone: Wound Ctr History AND Physic connie 11-25-2024 Wound Ctr History & Physical [facility] [address] [place] [address] H P Exam - Wound Care 11/25/24 1225 MR#: [id number] Acct: [id number] Name: MEGHA CIFUENTES Rep #: [id number] : 1960 63 From: Binu Troncoso MD PCP: Dr. Ty Narayanan MD Status:REG RCR Location: History of Present Illness Date of Service: 11/22/24 Chief Complaint: Bilateral lower extremity swelling and edema; severe venous stasis dermatitis History of Wound: This is a 63-year-old morbidly obese female who presented with severe swelling and edema in both lower extremities, which has been chronic in nature. 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 She presented with severe swelling, edema, and lymphedema in both lower extremities. Her lower extremities also demonstrate severe, exudative venous stasis dermatitis, hyperpigmentation, and lipodermatosclerosis. The patient claims to sleep on a flat mattress at night. She is not active. She denies a history of thrombophlebitis. Vascular studies have been recently ordered, and yet to be performed. The patient denies a history of diabetes mellitus, myocardial infarction, congestive heart failure, cerebrovascular accident, hypertension, pulmonary disease, renal disease, hyperlipidemia, and thyroid disease. The patient was seen and evaluated in the [facility] Emergency Department on November 09, 2024, at which time a prescription for oral Keflex was issued for lower extremity cellulitis. [facility] Medical History Dependent edema Venous stasis dermatitis of both lower extremities Leg edema, left Leg edema, right Left leg swelling Right leg swelling Lymphedema Chronic venous insufficiency Wears dentures Alcohol use Arthritis Restless legs [...] never Vital Signs Vital Signs Vital Signs: 11/25/24 10:55 Temperature 96.5 F L Temperature Source Temporal Pulse Rate 94 Respiratory Rate 18 Blood Pressure 151/79 H Blood Pressure Mean 103 Blood Pressure Source Monitor Blood Pressure Position Semi-Fowlers Blood Pressure Location Left Arm Physical Exam Const alert, oriented x3, no apparent distress, no limitations and well nourished Constitutional Narrative: The patient is morbidly obese. Her BMI is 53.1. General Appearance: cooperative, comfortable and well developed Orientation / Consciousness: awake, oriented to person, oriented to place and oriented to time Exam Limitations: no limitations Nutritional Appearance: obese morbidly obese HEENT normocephalic and head/scalp atraumatic Head and Scalp: normal to inspection, normocephalic and atraumatic Face and Sinus: normal facial exam Nose: external nose normal External Ear: external ears normal Eyes EOMs intact bilaterally General Eye: normal appearance of both eyes Neck full ROM Resp normal respiratory effort, normal air movement, no retractions and no use of accessory muscles Effort and Inspection: able to speak in complete sentences Extremity no calf tenderness General Extremity: Negative for clubbing or cyanosis Skin Wound Narrative: Severe swelling, edema, and lymphedema are noted in the patient's lower extremities bilaterally. Venous stasis dermatitis, hyperpigmentation, and lipodermatosclerosi (more content not included)... Normal [facility] Surgery Specimen Level [place] 11-14-2024 Surgery Specimen Level IV Patient Age/Sex Location Account Attending Physician MEGHA CIFUENTES 63/F LAB.FUTURE [id number] Dr. Miguel Angel Vargas MD Specimen: [id number] Received: 11/14/24 Status: STACIE Burks Num: [id number] Spec Type: Lesion Subm Dr: Dr. Miguel Angel Vargas MD HEADER OPERATION: Tissue biopsy right leg x2 sites PRE-OP DIAGNOSIS: Non-healing ulcers, right leg TISSUE SUBMITTED: A- Proximal right leg ulcer, B- Distal right leg ulcer MICROSCOPIC DIAGNOSIS A. Skin, right leg proximal, punch biopsy: - Acute and chronic inflammation with chronic stasis change - see Comment. - PASD stain negative for fungal organisms. B. Skin, right leg distal, punch biopsy: - Acute and chronic inflammation with eosinophils and stasis change - see Comment. - PASD stain negative for fungal organisms. COMMENT: The findings are favored to be reactive and consistent with chronic stasis. A secondary infection, especially given the degree of acute inflammation in part B, cannot be excluded. Selected slides/images were reviewed in intradepartmental consultation by Dr Amy Arcos (dermatopathology division, [facility]). MICROSCOPIC DESCRIPTION Slides are reviewed. ???All matched controls reacted appropriately. These tests were developed and their performance characteristics determined by [facility]. They may not have been cleared or approved by the U.S. Food and Drug Administration. The FDA has determined that such clearance or approval is not necessary.??? The above immunohistochemical???m arkers and/or special stains have been reviewed by the Pathologist. GROSS DESCRIPTION Received in 2 formalin containers labeled with the patient's name and date of . Designated as: A. Proximal R leg biopsy is a 0.2 x 0.2 cm sinclair skin punch excised to a maximum depth of 0.4 cm. The resection margin is inked green. Entirely submitted in 1 cassette. B. R distal leg biopsy is a 0.2 x 0.2 cm sinclair skin punch excised to a maximum depth of 0.4 cm. The resection margin is inked blue. Entirely submitted in 1 cassette. ND 11/15/2024PT:[id number] [id number] Patient Age/Sex Location Account Attending Physician MEGHA CIFUENTES 63/F LAB.FUTURE [id number] Dr. Miguel Angel Vargas MD Signed (signature on file) Dr. Anuradha Ayala MD 12/01/24 1839 Normal [facility] Comment on above: Performed By: #### P SUIV #### [facility] Laboratory [address] [place], [address] Wound Ctr History AND Physic connie 11-14-2024 Wound Ctr History & Physical [facility] [address] [place] [address] H P Exam - Wound Care 11/14/24 1056 MR#: [id number] Acct: [id number] Name: MEGHA CIFUENTES Rep #: [id number] : 1960 63 From: Miguel Angel Vargas [...] Patient presented to the emergency department at [facility] on 09 November 2024 for [...] of the generated note prior to signature. [facility] Medical History Wears dentures Alcohol use Arthritis [...] 96.1???F Resp (more content not included)... Normal [facility] Absolute lymphocyte countOrd ered By: Philomena Zhu on 11-09-2024 Lymphocytes Auto (Unsp spec) [#/Vol] 0.44 10*3/uL Low 0.83-4.51 [facility] Absolute neutrophil countOrd ered By: Philomena Zhu on 11-09-2024 Neutrophils (Bld) [#/Vol] 3.2 10*3/uL 2.0-7.7 [facility] Anion gap in Serum or Plasma Ordered By: Philomena Zhu on 11-09-2024 Anion gap [Moles/Vol] 10 mmol/L 5-15 [facility] Automated lymphocyte count a s percentage of total leukocytesOrdered By: Philomena Zhu on 11-09-2024 Lymphocytes/100 WBC Auto (Unsp spec) 10.9 % Low 19-41 [facility] BUN/creatinine ratioOrdered By: Philomena Zhu on 11-09-2024 Urea nitrogen/Creatinine [Mass ratio] 11.6 mg/mg 01-09 [facility] Basic Metabolic Profile (BMP )on 11-09-2024 BUN/CRE 11.6 RATIO Normal 01-09 [facility] Comment on above: Performed By: #### L 100.0100, L500.2500 ####[facility] [address] [place], [address] Calcium [Mass/Vol] 8.6 mg/dL Normal 7.6-11.0 [facility] Comment on above: Performed By: #### L 100.0100, L500.2500 ####[facility] [address] [place], [address] Chloride [Moles/Vol] 102 mmol/L Normal 98-108 [facility] Comment on above: Performed By: #### L 100.0100, L500.2500 ####[facility] [address] [place], [address] CO2 [Moles/Vol] 24.6 mmol/L Normal 21.0-32.0 [facility] Comment on above: Performed By: #### L 100.0100, L500.2500 ####[facility] [address] [place], [address] Creatinine [Mass/Vol] 0.67 mg/dL Low 0.70-1.20 [facility] Comment on above: Performed By: #### L 100.0100, L500.2500 ####[facility] [address] [place], [address] ECRCL 152.54 ml/min Normal 50-250 [facility] Comment on above: Performed By: #### L 100.0100, L500.2500 ####[facility] [address] [place], [address] GAP 10 Normal 5-15 [facility] Comment on above: Performed By: #### L 100.0100, L500.2500 ####[facility] [address] [place], [address] GFR/1.73 sq M.predicted among non-blacks MDRD (S/P/Bld) [Vol rate/Area] 99 mL/min/{1.73_m2} Normal >60 [facility] Comment on above: Result Comment: mL/m in/1.73m2 CKD-EPI Creatinine Equation (2020) Performed By: #### L 100.0100, L500.2500 ####[facility] [address] [place], [address] Glucose [Mass/Vol] 99 mg/dL Normal 70-99 [facility] Comment on above: Performed By: #### L 100.0100, L500.2500 ####[facility] [address] [place], [address] Potassium [Moles/Vol] 4.4 mmol/L Normal 3.3-5.1 [facility] Comment on above: Performed By: #### L 100.0100, L500.2500 ####[facility] [address] [place], [address] Sodium [Moles/Vol] 137 mmol/L Normal 133-145 [facility] Comment on above: Performed By: #### L 100.0100, L500.2500 ####[facility] [address] [place], [address] Urea nitrogen [Mass/Vol] 8 mg/dL Normal 4-19 [facility] Comment on above: Performed By: #### L 100.0100, L500.2500 ####[facility] [address] [place], [address] Basophil percentageOrdered B y: Philomena Audra on 11-09-2024 Basophils/100 WBC (Bld) 0.2 % 0-1 [facility] CBC W/Diff, Automatedon 10-22 Absolute Lymph 0.44 X10 3/uL Low 0.83-4.51 [facility] Comment on above: Performed By: #### L 100.0100, L500.2500 ####[facility] [address] [place], [address] Absolute Neut 3.2 X10 3/uL Normal 2.0-7.7 [facility] Comment on above: Performed By: #### L 100.0100, L500.2500 ####[facility] [address] [place], [address] Basophils/100 WBC (Bld) 0.2 % Normal 0-1 [facility] Comment on above: Performed By: #### L 100.0100, L500.2500 ####[facility] [address] [place], [address] Eosinophils/100 WBC (Bld) 1.7 % Normal 0-5 [facility] Comment on above: Performed By: #### L 100.0100, L500.2500 ####[facility] [address] [place], [address] Erythrocyte distribution width (RBC) [Ratio] 14.0 % Normal 11.6-14.6 [facility] Comment on above: Performed By: #### L 100.0100, L500.2500 ####[facility] [address] [place], [address] Hematocrit (Bld) [Volume fraction] 39.9 % Normal 37-47 [facility] Comment on above: Performed By: #### L 100.0100, L500.2500 ####[facility] [address] [place], [address] Hemoglobin (Bld) [Mass/Vol] 13.0 g/dL Normal 12.0-15.0 [facility] Comment on above: Performed By: #### L 100.0100, L500.2500 ####[facility] [address] [place], [address] IG% 0.500 Normal 0.0-0.9 [facility] Comment on above: Result Comment: IG% - Immature Granulocytes (promyelocytes, myelocytes and metamyelocytes) > 1% indicates that a LEFT SHIFT is Present. Performed By: #### L 100.0100, L500.2500 ####[facility] [address] [place], [address] Lymphocytes/100 WBC (Bld) 10.9 % Low 19-41 [facility] Comment on above: Performed By: #### L 100.0100, L500.2500 ####[facility] [address] [place], [address] MCH (RBC) [Entitic mass] 31.7 pg Normal 27.0-32.0 [facility] Comment on above: Performed By: #### L 100.0100, L500.2500 ####[facility] [address] [place], [address] MCHC (RBC) [Mass/Vol] 32.6 g/dL Normal 32-36 [facility] Comment on above: Performed By: #### L 100.0100, L500.2500 ####[facility] [address] [place], [address] MCV (RBC) [Entitic vol] 97.3 fL Normal 81-99 [facility] Comment on above: Performed By: #### L 100.0100, L500.2500 ####[facility] [address] [place], [address] Monocytes/100 WBC (Bld) 8.4 % Normal 0-10 [facility] Comment on above: Performed By: #### L 100.0100, L500.2500 ####[facility] [address] [place], [address] Neutrophils/100 WBC (Bld) 78.3 % High 47-70 [facility] Comment on above: Performed By: #### L 100.0100, L500.2500 ####[facility] [address] [place], [address] Nucleated RBC (Bld) [#/Vol] 0 10*3/uL Normal 0-5 [facility] Comment on above: Performed By: #### L 100.0100, L500.2500 ####[facility] [address] [place], [address] Platelet mean volume (Bld) [Entitic vol] 10.3 fL Normal 6.2-12.0 [facility] Comment on above: Performed By: #### L 100.0100, L500.2500 ####[facility] [address] [place], [address] Platelets (Bld) [#/Vol] 183 10*3/uL Normal 150-450 [facility] Comment on above: Performed By: #### L 100.0100, L500.2500 ####[facility] [address] [place], [address] RBC (Bld) [#/Vol] 4.10 10*6/uL Low 4.2-5.4 [facility] Comment on above: Performed By: #### L 100.0100, L500.2500 ####[facility] [address] [place], [address] RDW SD 50.2 fl High 35.1-43.9 [facility] Comment on above: Performed By: #### L 100.0100, L500.2500 ####[facility] [address] [place], [address] WBC (Bld) [#/Vol] 4.0 10*3/uL Low 4.4-11.0 [facility] Comment on above: Performed By: #### L 100.0100, L500.2500 ####[facility] [address] [place], [address] Carbon dioxide, total [Moles /volume] in Central venous bloodOrdered By: Philomena Zhu on 11-09-2024 CO2 [Moles/Vol] 24.6 mmol/L 21.0-32.0 [facility] Chloride assayOrdered By: Bryce Zhu on 11-09-2024 Chloride [Moles/Vol] 102 mmol/L 98-108 [facility] Emergency Department Summary on 11-09-2024 Emergency Department Summary [facility] Medical Records Department [address] [place] [address] Emergency Department Summary 11/09/24 MR#: [id number] Acct: [id number] Name: MEGHA CIFUENTES Rep #: [id number] : 1960 63 From: Philomena Zhu MD [...] and ambulating fine. States she feels well. [facility] Medical History Wears dentures Alcohol use Arthritis [...] Patient d (more content not included)... Normal [facility] Eosinophil percentageOrdered By: Philomena Zhu on 11-09-2024 Eosinophils/100 WBC (Bld) 1.7 % 0-5 [facility] Erythrocyte distribution wid th ratioOrdered By: Philomena Zhu on 11-09-2024 Erythrocyte distribution width (RBC) [Ratio] 14.0 % 11.6-14.6 [facility] Erythrocyte distribution wid th standard deviationOrdered By: Philomena Zhu on 11-09-2024 Erythrocyte distribution width (RBC) [Ratio] 50.2 fl High 35.1-43.9 [facility] Glomerular filtration rate ( GFR) estimation/1.73 sq m using serum, plasma, or whole bOrdered By: Philomena Zhu on 11-09-2024 GFR/1.73 sq M.predicted among non-blacks MDRD (S/P/Bld) [Vol rate/Area] 99 mL/min/{1.73_m2} >60 [facility] Comment on above: mL/min/1.73m2 CKD-EP I Creatinine Equation (2020) Hematocrit Auto (Bld) [Volum e fraction]Ordered By: Philomena Zhu on 11-09-2024 Hematocrit (Bld) [Volume fraction] 39.9 % 37-47 [facility] Hemoglobin measurementOrdere d By: Philomena Zuh on 11-09-2024 Hemoglobin (Bld) [Mass/Vol] 13.0 g/dL 12.0-15.0 [facility] Immature granulocytes/100 WB C Auto (Bld)Ordered By: Philomena Zhu on 11-09-2024 Immature granulocytes/100 WBC (Bld) 0.500 % 0.0-0.9 [facility] Comment on above: IG% - Immature Granu locytes (promyelocytes, myelocytes and metamyelocytes) > 1% indicates that a LEFT SHIFT is Present. MCV (mean corpuscular volume ) determinationOrdered By: Philomena Zhu on 11-09-2024 MCV (RBC) [Entitic vol] 97.3 fL 81-99 [facility] Mean corpuscular hemoglobin (MCH) determinationOrdered By: Philomena Zhu on 11-09-2024 MCH (RBC) [Entitic mass] 31.7 pg 27.0-32.0 [facility] Mean corpuscular hemoglobin concentration (MCHC) determinationOrdered By: Philomena Zhu on 11-09-2024 MCHC (RBC) [Mass/Vol] 32.6 g/dL 32-36 [facility] Mean platelet volume determi nationOrdered By: Philomena Zhu on 11-09-2024 Platelet mean volume (Bld) [Entitic vol] 10.3 fL 6.2-12.0 [facility] Monocyte percentageOrdered B y: Philomena Zhu on 11-09-2024 Monocytes/100 WBC (Bld) 8.4 % 0-10 [facility] Neutrophil percentageOrdered By: Philomena Zhu on 11-09-2024 Neutrophils/100 WBC (Bld) 78.3 % High 47-70 [facility] Nucleated red blood cell per centageOrdered By: Philomena Zhu on 11-09-2024 Nucleated RBC/100 WBC (Bld) [Ratio] 0 % 0-5 [facility] Platelet countOrdered By: Bryce Zhu on 11-09-2024 Platelets (Bld) [#/Vol] 183 10*3/uL 150-450 [facility] Potassium measurement (mass/ volume)Ordered By: Philomena Zhu on 11-09-2024 Potassium (Unsp spec) [Mass/Vol] 4.4 mmol/L 3.3-5.1 [facility] RBC Auto (Bld) [#/Vol]Ordere d By: Philomena Zhu on 11-09-2024 RBC (Bld) [#/Vol] 4.10 10*6/uL Low 4.2-5.4 [facility] Serum creatinine measurement (mass/volume)Ordered By: Philomena Zhu on 11-09-2024 Creatinine [Mass/Vol] 0.67 mg/dL Low 0.70-1.20 [facility] Serum glucose measurement (m ass/volume)Ordered By: Philomena Zhu on 11-09-2024 Glucose [Mass/Vol] 99 mg/dL 70-99 [facility] Serum or plasma calcium erick urement (mass/volume)Ordered By: Philomena Younger on 11-09-2024 Calcium [Mass/Vol] 8.6 mg/dL 7.6-11.0 [facility] Serum or plasma urea nitroge n measurement (mass/volume)Ordered By: Philomena Audra on 11-09-2024 Urea nitrogen [Mass/Vol] 8 mg/dL 4-19 [facility] Sodium levelOrdered By: Issa graf Audra on 11-09-2024 Sodium [Moles/Vol] 137 mmol/L 133-145 [facility] White blood cell (WBC) count Ordered By: Philomena Younger on 11-09-2024 WBC (Bld) [#/Vol] 4.0 10*3/uL Low 4.4-11.0 [facility] CNPNon 11-04-2024 [facility] MEG[facility] CIFUENTES ([id number]) 1960 F Date Time Provider Department 11/04/24 [facility]Y [facility]N [facility] During your visit today, we recorded the following information about you: Lizzy Subramanian RN 11/04/2024 12:59 PM Signed Patient calls and states that her right leg is swollen and it is seeping clear fluid. Patient states that she had talked to [facility] about this and was told that [...] really needs to have it looked at. LizzyBRODY Cisneros Jesse, APRN.SHAISTA 11/04/2024 1:25 PM Signed Potentially could be [...] Encounter Status:Closed by LIZZY SUBRAMANIAN [facility]04[facility] MEGHA CIFUENTES ([id number]) 1960 F Date Time Provider Department 10/26/24 [facility] During your visit today, we recorded the [...] in to schedule appointment. BRODY Stephen Barbara, BRODY 10/28/2024 3:48 PM Signed No appt made. Contacted pt again and she states she will call back in to schedule. Nyla Donaldson 10/31/2024 11:33 AM Signed Spoke with patient [...] Obesity, Clas (more content not included)... Normal [facility] CNCOon 06-01-2024 CNCO Letter Text Normal [facility] CNOVon 05-04-2024 CNOV Office Visit (FAMPWS ) MEGHA CIFUENTES ([id number]) 1960 F Date Time Provider Department 05/04/24 2:40 PM BRONWYN SOLO During your visit today, we recorded the following information about you: Pulse Respiration Blood pressure Weight 72/minute 18/minute 130/96 162.6 kg Height 1.715 m Bronwyn Solo APRN.GRADUATE TEACHING ASSOCIATE 05/04/2024 4:54 PM Signed Megha Pak Vane is a 63 year old female here [...] history review Reviewed and updated problem list, medical/surgical/family /social history, medications, and allergies. Opioid use review [...] covid vaccine today. Colonoscopy: Fecal occult in 2016. Would like to do cologuard Mammogram: last [...] mg table (more content not included)... [facility] MEGHA CIFUENTES ([id number]) 1960 F Date Time Provider Department 12/11/23 LINDA RODRIGUEZ During your visit today, we recorded the [...] cannot afford to come in. 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 Ashley Melvin RN 12/15/2023 10:01 AM [...] her last Megace and would like Dr. Carcaom to review and order the refill. Aware DM returns to the office tomorrow. BRODY Tripathi Deidre, MD 12/16/2023 4:27 PM Signed I will not be refilling progesterone without an EMB. If she would like to get a second opinion regarding surgical options and management with [facility] we can arrange that. I know she [...] 3:56 PM Signed Nurse transferred patient to ca to r/s EMB patient was no longer on the line tried to call patient twice as current insurance is OON for CCf and need to place another OON referral as current referral was only good until 03/22/24 and next opening with provider is 2024 Allergies As of Date: 12/11/2023 (No Known Allergies) Date Reviewed: 04/06/2023 Reviewed by: Bronwyn Solo APRN.GRADUATE TEACHING ASSOCIATE - Fully Assessed Reason for Visit: Refill [...] once daily. - COMPOUNDED PRESCRIPTION [facility] E0651/Segmental Compressor [facility] E067/ Leg Appliance Dx: Lymphedema I89.0 Right Lower Extremity Lifetime Usage Problem List As Of Date 12/11/2023 Noted Resolved VENTRAL HERNIA NOS [K43.9] 08/27/2007 06/15/2008 Carpal tunnel syndrome [G56.00] 03/10/2008 04/20/2019 Adjustment disorder with depressed mood [F43.21]04/24/2008 04/20/2019 ESOPHAGEAL REFLUX [K21.9] 08/09/2008 LATERAL EPICONDYLITIS [M77.10] 09/19/2008 09/28/2014 (more content not included)... Normal [facility] Absolute lymphocyte countOrd ered By: Yamileth Cherry on 11-14-2022 Lymphocytes Auto (Unsp spec) [#/Vol] 0.83 10*3/uL 0.83-4.51 [facility] Basophil percentageOrdered B y: Yamileth Cherry on 11-14-2022 Basophils/100 WBC (Bld) 0.3 % 0-1 [facility] Eosinophils/100 WBC (Bld) 1.5 % 0-5 [facility] Neutrophils (Bld) [#/Vol] 4.6 10*3/uL 2.0-7.7 [facility] Neutrophils/100 WBC (Bld) 76.6 % 47-70 [facility] WBC (Bld) [#/Vol] 6.0 10*3/uL 4.4-11.0 [facility] Blood erythrocytes count (nu mber/volume)Ordered By: Yamileth Cherry on 11-14-2022 RBC (Bld) [#/Vol] 4.13 10*6/uL 4.2-5.4 [facility] Blood hemoglobin measurement (mass/volume)Ordered By: Yamileth Cherry on 11-14-2022 Hemoglobin (Bld) [Mass/Vol] 11.9 g/dL 12.0-15.0 [facility] Blood lymphocytes/100 leukoc ytesOrdered By: Yamileth Cherry on 11-14-2022 Lymphocytes/100 WBC (Bld) 13.9 % 19-41 [facility] Blood monocytes/100 leukocyt esOrdered By: Yamileth Cherry on 11-14-2022 Monocytes/100 WBC (Bld) 7.4 % 0-10 [facility] Blood platelet mean volumeOr dered By: Yamileth Cherry on 11-14-2022 Platelet mean volume (Bld) [Entitic vol] 10.8 fL 6.2-12.0 [facility] Determination of erythrocyte mean corpuscular volume (MCV)Ordered By: Yamileth Cherry on 11-14-2022 MCV (RBC) [Entitic vol] 91.8 fL 81-99 [facility] Hematocrit Auto (Bld) [Volum e fraction]Ordered By: Yamileth Cherry on 11-14-2022 Hematocrit (Bld) [Volume fraction] 37.9 % 37-47 [facility] Laboratory - Hematology and Cell countsOrdered By: Yamileth Cherry on 11-14-2022 Erythrocyte distribution width (RBC) [Entitic vol] 47.2 fL 35.1-43.9 [facility] Erythrocyte distribution width (RBC) [Ratio] 14.1 % 11.6-14.6 [facility] Immature granulocytes/100 WBC (Bld) 0.300 % 0.0-0.9 [facility] Comment on above: IG% - Immature Granu locytes (promyelocytes, myelocytes and metamyelocytes) > 1% indicates that a LEFT SHIFT is Present. MCH (RBC) [Entitic mass] 28.8 pg 27.0-32.0 [facility] Nucleated RBC/100 WBC (Bld) [Ratio] 0 % 0-5 [facility] MCHC Auto (RBC) [Mass/Vol]Or dered By: Yamilteh Cherry on 11-14-2022 MCHC (RBC) [Mass/Vol] 31.4 g/dL 32-36 [facility] Platelets bldOrdered By: Yamileth Cherry on 11-14-2022 Platelets (Bld) [#/Vol] 240 10*3/uL 150-450 [facility] PELVIC US WHIon 07-25-2022 [facility] Basophil percentageon 2021 Bilirubin [Mass/Vol] 0.50 mg/dL 0.20-1.00 [facility] Work Phone: Comment on above: For patients on eltr ombopag therapy, use of Dimension [place] TBIL is not recommended. Chloride [Moles/Vol] 107 mmol/L 98-107 [facility] Work Phone: Glucose [Mass/Vol] 96 mg/dL 74-106 [facility] Work Phone: Potassium [Moles/Vol] 4.3 mmol/L 3.5-5.1 [facility] Work Phone: Protein [Mass/Vol] 7.5 g/dL 6.4-8.2 [facility] Work Phone: Sodium [Moles/Vol] 139 mmol/L 136-145 [facility] Work Phone: [phone] WBC (Bld) [#/Vol] 5.6 10*3/uL 4.4-11.0 [facility] Work Phone: Blood erythrocytes count (nu mber/volume)on 07-05-2021 RBC (Bld) [#/Vol] 4.50 10*6/uL 4.2-5.4 [facility] Work Phone: Blood hemoglobin measurement (mass/volume)on 07-05-2021 Hemoglobin (Bld) [Mass/Vol] 14.1 g/dL 12.0-15.0 [facility] Work Phone: [phone] Blood platelet mean volumeon 07-05-2021 Platelet mean volume (Bld) [Entitic vol] 10.1 fL 6.2-12.0 [facility] Work Phone: [phone] Determination of erythrocyte mean corpuscular volume (MCV)on 07-05-2021 MCV (RBC) [Entitic vol] 96.2 fL 81-99 [facility] Work Phone: Direct bilirubinon Bilirubin.direct [Mass/Vol] 0.13 mg/dL 0.00-0.30 [facility] Work Phone: [phone] Erythrocyte sedimentation ra jose m 07-05-2021 ESR (Bld) [Velocity] 11 mm/h 0-30 [facility] Work Phone: [phone] Hematocrit Auto (Bld) [Volum e fraction]on 07-05-2021 Hematocrit (Bld) [Volume fraction] 43.3 % 37-47 [facility] Work Phone: [phone] Laboratory - Chemistry and C hemistry - challengeon 07-05-2021 ALP [Catalytic activity/Vol] 91 U/L 45-117 [facility] Work Phone: [phone] ALT [Catalytic activity/Vol] 18 U/L 13-56 [facility] Work Phone: [phone] CO2 [Moles/Vol] 30.0 mmol/L 21.0-32.0 [facility] Work Phone: [phone] Globulin (S) [Mass/Vol] 4.1 g/dL 2.2-4.2 [facility] Work Phone: [phone] Urea nitrogen/Creatinine [Mass ratio] 12.9 mg/mg 10-20 [facility] Work Phone: [phone] Laboratory - Hematology and Cell countson 07-05-2021 Erythrocyte distribution width (RBC) [Entitic vol] 45.5 fL 35.1-43.9 [facility] Work Phone: [phone] Erythrocyte distribution width (RBC) [Ratio] 12.8 % 11.6-14.6 [facility] Work Phone: MCH (RBC) [Entitic mass] 31.3 pg 27.0-32.0 [facility] Work Phone: [phone] MCHC Auto (RBC) [Mass/Vol]on 07-05-2021 MCHC (RBC) [Mass/Vol] 32.6 g/dL 32-36 [facility] Work Phone: No Panel Informationon 07-05 Estimated GFR (MDRD) Amer 98 mL/min >60 [facility] Work Phone: Comment on above: GFR Calc Estimated GFR (MDRD) Non-Af Amer 81 mL/min >60 [facility] Work Phone: Comment on above: Non- GFR Calc Platelets bldon 07-05-2021 Platelets (Bld) [#/Vol] 206 10*3/uL 150-450 [facility] Work Phone: [phone] Serum or plasma albumin erick urement (mass/volume)on 07-05-2021 Albumin [Mass/Vol] 3.4 g/dL 3.2-5.0 [facility] Work Phone: [phone] Serum or plasma calcium erick urement (mass/volume)on 07-05-2021 Calcium [Mass/Vol] 8.8 mg/dL 8.5-10.1 [facility] Work Phone: [phone] Serum or plasma creatinine m easurement (mass/volume)on 07-05-2021 Creatinine [Mass/Vol] 0.77 mg/dL 0.55-1.02 [facility] Work Phone: Comment on above: The validity of the calculated GFR & GFRAA in patients over 70 years has not been determined. Clinical correlation is essential. Serum or plasma urea nitroge n measurement (mass/volume)on 07-05-2021 Urea nitrogen [Mass/Vol] 10 mg/dL 7-18 [facility] Work Phone: Thin prep Papanicolaou smear with manual screeningon 07-05-2021 Thin prep Papanicolaou smear with manual screening 14 U/L 15-37 [facility] Work Phone: Thin prep Papanicolaou smear with manual screening 2 5-15 [facility] Work Phone: CBC with Diffon 04-20-2017 Basophils Auto #/vol (Bld) 0.0 K/mcL Normal 0-0.2 [facility] Comment on above: Performed By: #### C BCDIF ####Unless otherwise noted, all testing performed by [address]CLIA: [id number] Director: Jeremiah Angelo M.D. Basophils/100 WBC Auto (Bld) 0.6 % Normal [facility] Comment on above: Performed By: #### C BCDIF ####Unless otherwise noted, all testing performed by [address] [phone]: [id number] Director: Jeremiah Angelo M.D. Eosinophils 0.2 K/mcL Normal 0-0.5 [facility] Comment on above: Performed By: #### C BCDIF ####Unless otherwise noted, all testing performed by [address]CLIA: [id number] Director: Jeremiah Angelo M.D. Eosinophils/100 leukocytes 2.7 % Normal [facility] Comment on above: Performed By: #### C BCDIF ####Unless otherwise noted, all testing performed by [address] [phone]: [id number] Director: Jeremiah Angelo M.D. Erythrocyte distribution width Auto Ratio (RBC) 15.4 % High 10.0-14.4 [facility] Comment on above: Performed By: #### C BCDIF ####Unless otherwise noted, all testing performed by [address] [phone]: [id number] Director: Jeremiah Angelo M.D. Erythrocytes (RBC) 3.16 M/mcL Low 3.7-5.0 [facility] Comment on above: Performed By: #### C BCDIF ####Unless otherwise noted, all testing performed by [address] [phone]: [id number] Director: Jeremiah Angelo M.D. Hematocrit (HCT) 28.1 % Low 34.4-44.8 [facility] Comment on above: Performed By: #### C BCDIF ####Unless otherwise noted, all testing performed by [address] [phone]: [id number] Director: Jeremiah Angelo M.D. Hemoglobin mass conc (Bld) 9.1 g/dL Low 11.6-15.4 [facility] Comment on above: Performed By: #### C BCDIF ####Unless otherwise noted, all testing performed by [address] [phone]: [id number] Director: Jeremiah Angelo M.D. Lymphocytes 1.2 K/mcL Normal 1.0-3.7 [facility] Comment on above: Performed By: #### C BCDIF ####Unless otherwise noted, all testing performed by [address] [phone]: [id number] Director: Jeremiah Angelo M.D. Lymphocytes/100 leukocytes 19.7 % Normal [facility] Comment on above: Performed By: #### C BCDIF ####Unless otherwise noted, all testing performed by [address] [phone]: [id number] Director: Jeremiah Angelo M.D. MCH 28.7 pg Normal 27.9-33.9 [facility] Comment on above: Performed By: #### C BCDIF ####Unless otherwise noted, all testing performed by [address] [phone]: [id number] Director: Jeremiah Angelo M.D. MCHC mass conc (RBC) 32.3 g/dL Low 33.1-35.1 [facility] Comment on above: Performed By: #### C BCDIF ####Unless otherwise noted, all testing performed by [address] [phone]: [id number] Director: Jeremiah Angelo M.D. MCV 88.9 fL Normal 82.6-98.9 [facility] Comment on above: Performed By: #### C BCDIF ####Unless otherwise noted, all testing performed by [facility] [phone]: [id number] Director: Jeremiah Angelo M.D. Monocytes 0.4 K/mcL Normal 0.1-0.6 [facility] Comment on above: Performed By: #### C BCDIF ####Unless otherwise noted, all testing performed by [address] [phone]: [id number] Director: Jeremiah Angelo M.D. Monocytes/100 leukocytes 6.1 % Normal [facility] Comment on above: Performed By: #### C BCDIF ####Unless otherwise noted, all testing performed by [address] [phone]: [id number] Director: Jeremiah Angelo M.D. Neutrophils 4.2 K/mcL Normal 1.2-6.9 [facility] Comment on above: Performed By: #### C BCDIF ####Unless otherwise noted, all testing performed by [address] [phone]: [id number] Director: Jeremiah Angelo M.D. Platelet mean volume (PMV) 8.7 fL Normal 7.0-10.6 [facility] Comment on above: Performed By: #### C BCDIF ####Unless otherwise noted, all testing performed by [address] [phone]: [id number] Director: Jeremiah Angelo M.D. Platelets 270 K/mcL Normal 162-402 [facility] Comment on above: Performed By: #### C BCDIF ####Unless otherwise noted, all testing performed by [address] [phone]: [id number] Director: Jeremiah Angelo M.D. Segmented Neut % 70.9 % Normal [facility] Comment on above: Performed By: #### C BCDIF ####Unless otherwise noted, all testing performed by [address] [phone]: [id number] Director: Jeremiah Angelo M.D. WBC (Leukocytes) 5.9 K/mcL Normal 3.4-10.6 [facility] Comment on above: Performed By: #### C BCDIF ####Unless otherwise noted, all testing performed by [address] [phone]: [id number] Director: Jeremiah Angelo M.D. CBC w/o Diffon 04-17-2017 Erythrocyte distribution width Auto Ratio (RBC) 15.6 % High 10.0-14.4 [facility] Comment on above: Performed By: #### C BCWOD ####Unless otherwise noted, all testing performed by [address] [phone]: [id number] Director: Jeremiah Angelo M.D. Erythrocytes (RBC) 2.99 M/mcL Low 3.7-5.0 [facility] Comment on above: Performed By: #### C BCWOD ####Unless otherwise noted, all testing performed by [address] [phone]: [id number] Director: Jeremiah Angelo M.D. Hematocrit (HCT) 26.5 % Low 34.4-44.8 [facility] Comment on above: Performed By: #### C BCWOD ####Unless otherwise noted, all testing performed by [address] [phone]: [id number] Director: Jeremiah Angelo M.D. Hemoglobin mass conc (Bld) 8.7 g/dL Low 11.6-15.4 [facility] Comment on above: Performed By: #### C BCWOD ####Unless otherwise noted, all testing performed by [address] [phone]: [id number] Director: Jeremiah Angelo M.D. MCH 29.0 pg Normal 27.9-33.9 [facility] Comment on above: Performed By: #### C BCWOD ####Unless otherwise noted, all testing performed by [address] [phone]: [id number] Director: Jeremiah Angelo M.D. MCHC mass conc (RBC) 32.8 g/dL Low 33.1-35.1 [facility] Comment on above: Performed By: #### C BCWOD ####Unless otherwise noted, all testing performed by [address] [phone]: [id number] Director: Jeremiah Angelo M.D. MCV 88.4 fL Normal 82.6-98.9 [facility] Comment on above: Performed By: #### C BCWOD ####Unless otherwise noted, all testing performed by [address] [phone]: [id number] Director: Jeremiah Angelo M.D. Platelet mean volume (PMV) 8.5 fL Normal 7.0-10.6 [facility] Comment on above: Performed By: #### C BCWOD ####Unless otherwise noted, all testing performed by [address] [phone]: [id number] Director: Jeremiah Angelo M.D. Platelets 235 K/mcL Normal 162-402 [facility] Comment on above: Performed By: #### C BCWOD ####Unless otherwise noted, all testing performed by [address] [phone]: [id number] Director: Jeremiah Angelo M.D. WBC (Leukocytes) 4.5 K/mcL Normal 3.4-10.6 [facility] Comment on above: Performed By: #### C BCWOD ####Unless otherwise noted, all testing performed by [address] [phone]: [id number] Director: Jeremiah Angelo M.D. CBC and Differentialon 03-05 Basophils 0.6 % Invalid Interpretation Code [facility] Basophils 0.0 K/mcL Invalid Interpretation Code 0 - 0.2 [facility] Eosinophils 0.1 K/mcL Invalid Interpretation Code 0 - 0.5 [facility] Erythrocytes (RBC) 4.10 M/mcL Invalid Interpretation Code 3.7 - 5.0 [facility] Hematocrit (HCT) 35.9 % Normal 34.4-44.8 [facility] Comment on above: Performed By: #### C BCDIF, CRPQT, SEDR ####Unless otherwise noted, all testing performed by [address] [phone]: [id number] Director: Jeremiah Angelo M.D. Hemoglobin (HGB) 11.9 g/dL Normal 11.6-15.4 [facility] Comment on above: Performed By: #### C BCDIF, CRPQT, SEDR ####Unless otherwise noted, all testing performed by [address] [phone]: [id number] Director: Jeremiah Angelo M.D. Interpretation and review of laboratory results Abnormal Invalid Interpretation Code [facility] Lymphocytes 0.8 K/mcL Low 1.0 - 3.7 [facility] MCH 29.0 pg Normal 27.9-33.9 [facility] Comment on above: Performed By: #### C BCDIF, CRPQT, SEDR ####Unless otherwise noted, all testing performed by [address] [phone]: [id number] Director: Jeremiah Angelo M.D. MCHC 33.1 g/dL Normal 33.1-35.1 [facility] Comment on above: Performed By: #### C BCDIF, CRPQT, SEDR ####Unless otherwise noted, all testing performed by [address] [phone]: [id number] Director: Jeremiah Angelo M.D. MCV 87.6 fL Normal 82.6-98.9 [facility] Comment on above: Performed By: #### C BCDIF, CRPQT, SEDR ####Unless otherwise noted, all testing performed by [address] [phone]: [id number] Director: Jeremiah Angelo M.D. Monocytes 0.3 K/mcL Invalid Interpretation Code 0.1 - 0.6 [facility] Neutrophils 2.4 K/mcL Invalid Interpretation Code 1.2 - 6.9 [facility] Platelet mean volume (PMV) 8.7 fL Normal 7.0-10.6 [facility] Comment on above: Performed By: #### C BCDIF, CRPQT, SEDR ####Unless otherwise noted, all testing performed by [address] [phone]: [id number] Director: Jeremiah Angelo M.D. Platelets 206 K/mcL Invalid Interpretation Code 162 - 402 [facility] RDW-CA 14.2 % Normal 10.0-14.4 [facility] Comment on above: Performed By: #### C BCDIF, CRPQT, SEDR ####Unless otherwise noted, all testing performed by [address] [phone]: [id number] Director: Jeremiah Angelo M.D. Segmented Neut 65.6 % Invalid Interpretation Code [facility] T8 suppressor/100 cells 4.0 10*3/uL Invalid Interpretation Code [facility] T8 suppressor/100 cells 21.3 10*3/uL Invalid Interpretation Code [facility] T8 suppressor/100 cells 8.5 10*3/uL Invalid Interpretation Code [facility] WBC (Leukocytes) 3.6 K/mcL Invalid Interpretation Code 3.4 - 10.6 [facility] CBC with Diffon 03-05-2017 Basophils Auto #/vol (Bld) 0.0 K/mcL Normal 0-0.2 [facility] Comment on above: Performed By: #### C BCDIF, CRPQT, SEDR ####Unless otherwise noted, all testing performed by [address] [phone]: [id number] Director: Jeremiah Angelo M.D. Basophils/100 WBC Auto (Bld) 0.6 % Normal [facility] Comment on above: Performed By: #### C BCDIF, CRPQT, SEDR ####Unless otherwise noted, all testing performed by [address] [phone]: [id number] Director: Jeremiah Angelo M.D. Eosinophils 0.1 K/mcL Normal 0-0.5 [facility] Comment on above: Performed By: #### C BCDIF, CRPQT, SEDR ####Unless otherwise noted, all testing performed by [address] [phone]: [id number] Director: Jeremiah Angelo M.D. Eosinophils/100 leukocytes 4.0 % Normal [facility] Comment on above: Performed By: #### C BCDIF, CRPQT, SEDR ####Unless otherwise noted, all testing performed by [address] [phone]: [id number] Director: Jeremiah Angelo M.D. Erythrocytes (RBC) 4.10 M/mcL Normal 3.7-5.0 [facility] Comment on above: Performed By: #### C BCDIF, CRPQT, SEDR ####Unless otherwise noted, all testing performed by [address] [place] [phone]: [id number] Director: Jeremiah Angelo M.D. Lymphocytes 0.8 K/mcL Low 1.0-3.7 [facility] Comment on above: Performed By: #### C BCDIF, CRPQT, SEDR ####Unless otherwise noted, all testing performed by [address]8[address]CLIA: [id number] Director: Jeremiah Angelo M.D. Lymphocytes/100 leukocytes 21.3 % Normal [facility] Comment on above: Performed By: #### C BCDIF, CRPQT, SEDR ####Unless otherwise noted, all testing performed by [address]8[address]CLIA: [id number] Director: Jeremiah Angelo M.D. Monocytes 0.3 K/mcL Normal 0.1-0.6 [facility] Comment on above: Performed By: #### C BCDIF, CRPQT, SEDR ####Unless otherwise noted, all testing performed by [address]8[address]CLIA: [id number] Director: Jeremiah Angelo M.D. Monocytes/100 leukocytes 8.5 % Normal [facility] Comment on above: Performed By: #### C BCDIF, CRPQT, SEDR ####Unless otherwise noted, all testing performed by [place] [phone]: [id number] Director: Jeremiah Angelo M.D. Neutrophils 2.4 K/mcL Normal 1.2-6.9 [facility] Comment on above: Performed By: #### C BCDIF, CRPQT, SEDR ####Unless otherwise noted, all testing performed by [address] [phone]: [id number] Director: Jeremiah Angelo M.D. Platelets 206 K/mcL Normal 162-402 [facility] Comment on above: Performed By: #### C BCDIF, CRPQT, SEDR ####Unless otherwise noted, all testing performed by [address] [phone]: [id number] Director: Jeremiah Angelo M.D. Segmented Neut % 65.6 % Normal [facility] Comment on above: Performed By: #### C BCDIF, CRPQT, SEDR ####Unless otherwise noted, all testing performed by [address] [phone]: [id number] Director: Jeremiah Angelo M.D. WBC (Leukocytes) 3.6 K/mcL Normal 3.4-10.6 [facility] Comment on above: Performed By: #### C BCDIF, CRPQT, SEDR ####Unless otherwise noted, all testing performed by [address] [phone]: [id number] Director: Jeremiah Angelo M.D. CRP, C-Reactive Protein CRP - Inflammation 13.7 mg/L High 0 - 10 mg/L [facility] CRP, C-Reactive Protein 13.7 mg/L High 0.0-10.[address] [facility] Comment on above: Performed By: #### C BCDIF, CRPQT, SEDR ####Unless otherwise noted, all testing performed by [address] [phone]: [id number] Director: Jeremiah Angelo M.D. Sed Rateon 03-05-2017 Sed Rate 49 MM/hr. High 0-20 [facility] Comment on above: Performed By: #### C BCDIF, CRPQT, SEDR ####Unless otherwise noted, all testing performed by [address] [phone]: [id number] Director: Jeremiah Angelo M.D. Sedimentation Rateon 017 Sed Rate 49 MM/hr. High 0 - 20 [facility] Basic Metabolic Panelon 11-2 Calcium 8.9 mg/dL Normal 8.4-10.2 [facility] Comment on above: Performed By: #### C BCWOD, CHEM8, SEDR ####Unless otherwise noted, all testing performed by [address] [phone]: [id number] Director: Jeremiah Angelo M.D. Chloride 105 mmol/L Normal 98-108 [facility] Comment on above: Performed By: #### C BCWOD, CHEM8, SEDR ####Unless otherwise noted, all testing performed by [address] [phone]: [id number] Director: Jeremiah Angelo M.D. CO2 27 mmol/L Normal 21-32 [facility] Comment on above: Performed By: #### C BCWOD, CHEM8, SEDR ####Unless otherwise noted, all testing performed by [address] [phone]: [id number] Director: Jeremiah Angelo M.D. Creatinine 0.86 mg/dL Normal 0.40-1.10 [facility] Comment on above: Performed By: #### C BCWOD, CHEM8, SEDR ####Unless otherwise noted, all testing performed by [address] [phone]: [id number] Director: Jeremiah Angelo M.D. eGFR (black) mL/min/{1.73_m2} Normal [facility] Comment on above: GFR Calc Result Comment: Afri can Malian GFR Calc Performed By: #### C BCWOD, CHEM8, SEDR ####Unless otherwise noted, all testing performed by [address] [phone]: [id number] Director: Jeremiah Angelo M.D. eGFR (non-black) mL/min/{1.73_m2} Normal [facility] Comment on above: Non- GFR Calc eGFR [...] ####Unless otherwise noted, all testing performed by [address], [place] [phone]: [id number] Director: Jeremiah Angelo M.D. Glucose mass conc 81 mg/dL Normal 70-99 [facility] Comment on above: This test result chris [...] ####Unless otherwise noted, all testing performed by [address] [phone]: [id number] Director: Jeremiah Angelo M.D. Potassium molar conc 3.9 mmol/L Normal 3.5-5.1 [facility] Comment on above: Performed By: #### C BCWOD, CHEM8, SEDR ####Unless otherwise noted, all testing performed by [address] [phone]: [id number] Director: Jeremiah Angelo M.D. Sodium 139 mmol/L Normal 135-145 [facility] Comment on above: Performed By: #### C BCWOD, CHEM8, SEDR ####Unless otherwise noted, all testing performed by [address] [phone]: [id number] Director: Jeremiah Angelo M.D. Urea nitrogen 10 mg/dL Normal 8-25 [facility] Comment on above: Performed By: #### C BCWOD, CHEM8, SEDR ####Unless otherwise noted, all testing performed by [address] [phone]: [id number] Director: Jeremiah Angelo M.D. CBCon 02-18-2017 Erythrocyte distribution width Auto Ratio (RBC) 14.4 % Normal 10.0-14.4 [facility] Comment on above: Performed By: #### C BCWOD, CHEM8, SEDR ####Unless otherwise noted, all testing performed by [address] [phone]: [id number] Director: Jeremiah Angelo M.D. Erythrocytes (RBC) 3.70 M/mcL Invalid Interpretation Code 3.7 - 5.0 [facility] Hematocrit (HCT) 32.9 % Low 34.4-44.8 [facility] Comment on above: Performed By: #### C BCWOD, CHEM8, SEDR ####Unless otherwise noted, all testing performed by [address] [phone]: [id number] Director: Jeremiah Angelo M.D. Hemoglobin mass conc (Bld) 11.0 g/dL Low 11.6-15.4 [facility] Comment on above: Performed By: #### C BCWOD, CHEM8, SEDR ####Unless otherwise noted, all testing performed by [address] [phone]: [id number] Director: Jeremiah Angelo M.D. Interpretation and review of laboratory results Abnormal Invalid Interpretation Code [facility] MCH 29.6 pg Normal 27.9-33.9 [facility] Comment on above: Performed By: #### C BCWOD, CHEM8, SEDR ####Unless otherwise noted, all testing performed by [address] [phone]: [id number] Director: Jeremiah Angelo M.D. [facility] mass conc (RBC) 33.3 g/dL Normal 33.1-35.1 [facility] Comment on above: Performed By: #### C BCWOD, CHEM8, SEDR ####Unless otherwise noted, all testing performed by [address] [phone]: [id number] Director: Jeremiah Angelo M.D. MCV 88.8 fL Normal 82.6-98.9 [facility] Comment on above: Performed By: #### C BCWOD, CHEM8, SEDR ####Unless otherwise noted, all testing performed by [address] [phone]: [id number] Director: Jeremiah Angelo M.D. Platelet mean volume (PMV) 8.8 fL Normal 7.0-10.6 [facility] Comment on above: Performed By: #### C BCWOD, CHEM8, SEDR ####Unless otherwise noted, all testing performed by [address] [phone]: [id number] Director: Jeremiah Angelo M.D. Platelets 198 K/mcL Invalid Interpretation Code 162 - 402 [facility] WBC (Leukocytes) 3.6 K/mcL Invalid Interpretation Code 3.4 - 10.6 [facility] CBC w/o Diffon 02-18-2017 Erythrocytes (RBC) 3.70 M/mcL Normal 3.7-5.0 [facility] Comment on above: Performed By: #### C BCWOD, CHEM8, SEDR ####Unless otherwise noted, all testing performed by [address] [phone]: [id number] Director: Jeremiah Angelo M.D. Platelets 198 K/mcL Normal 162-402 [facility] Comment on above: Performed By: #### C BCWOD, CHEM8, SEDR ####Unless otherwise noted, all testing performed by [address] [phone]: [id number] Director: Jeremiah Angelo M.D. WBC (Leukocytes) 3.6 K/mcL Normal 3.4-10.6 [facility] Comment on above: Performed By: #### C BCWOD, CHEM8, SEDR ####Unless otherwise noted, all testing performed by [address] [phone]: [id number] Director: Jeremiah Angelo M.D. Sed Rateon 02-18-2017 Sed Rate 49 MM/hr. High 020 [facility] Comment on above: Performed By: #### C BCWOD, CHEM8, SEDR ####Unless otherwise noted, all testing performed by [address] [phone]: [id number] Director: Jeremiah Angelo M.D. Sedimentation Rateon 017 Sed Rate 49 MM/hr. [facility] [address] [facility] Vital Signs Date Time Vital Sign Value Performing Clinician Serai fiordalizay 12-27-2024 10:34-0400 Body temperature 96.3 [degF] Dr. Ty Narayanan MD Work Phone: [facility] 12-27-2024 10:34-0400 Diastolic blood pressure 70 mm[Hg] Dr. Ty Narayanan MD Work Phone: 0(240)455-881063 [place] [address] 12-27-2024 10:34-0400 Heart rate 86 /min Dr. Ty Narayanan MD Work Phone: 6(577)116-814663 [place] [address] 12-27-2024 10:34-0400 Respiratory rate 16 /min Dr. Ty Narayanan MD Work Phone: 4(222)437-855163 [place] [address] 12-27-2024 10:34-0400 Systolic blood pressure 122 mm[Hg] Dr. Ty Narayanan MD Work Phone: 2(945)258-686763 [place] [address] 12-20-2024 12:50-0400 Body height 177.[address] Ty Narayanan MD Work Phone: 2(748)187-449963 [place] [address] 12-20-2024 12:50-0400 Body weight 171.[address] Ty Narayanan MD Work Phone: 1(016)097-023563 [place] [address] 12-20-2024 09:55-0400 Body temperature 96.1 [degF] Dr. Ty Narayanan MD Work Phone: 9(376)215-127363 [place] [address] 12-20-2024 09:55-0400 Diastolic blood pressure 88 mm[Hg] Dr. Ty Narayanan MD Work Phone: 1(831)261-168763 [place] [address] 12-20-2024 09:55-0400 Heart rate 108 /min Dr. Ty Narayanan MD Work Phone: 2(577)773-412163 [place] [address] 12-20-2024 09:55-0400 Respiratory rate 16 /min Dr. Ty Narayanan MD Work Phone: 6(995)675-002363 [place] [address] 12-20-2024 09:55-0400 Systolic blood pressure 146 mm[Hg] Dr. Ty Narayanan MD Work Phone: 0(477)955-501363 [place] [address] 11-14-2024 10:01-0400 Body height 177.[address] Ty Narayanan MD Work Phone: 4(276)468-494563 [place] [address] 11-14-2024 10:01-0400 Body mass index (BMI) [Ratio] 53.1 kg/m2 Dr. Ty Narayanan MD Work Phone: 9(430)583-021163 [place] [address] 11-14-2024 10:01-0400 Body temperature 96.1 [degF] Dr. Ty Narayanan MD Work Phone: 2(912)442-172063 [place] [address] 11-14-2024 10:01-0400 Body weight 167.[address] Ty Narayanan MD Work Phone: 7(987)966-353763 [place] [address] 11-14-2024 10:01-0400 Diastolic blood pressure 94 mm[Hg] Dr. Ty Narayanan MD Work Phone: 7(551)793-691463 [place] [address] 11-14-2024 10:01-0400 Heart rate 84 /min Dr. Ty Narayanan MD Work Phone: 2(921)708-202863 [place] [address] 11-14-2024 10:01-0400 Respiratory rate 18 /min Dr. Ty Narayanan MD Work Phone: 8(556)678-918163 [place] [address] 11-14-2024 10:01-0400 Systolic blood pressure 146 mm[Hg] Dr. Ty Narayanan MD Work Phone: 0(810)618-503463 [place] [address] 11-09-2024 15:31-0400 Diastolic blood pressure 91 mm[Hg] Dr. Ty Narayanan MD Work Phone: 0(026)015-545363 [place] [address] 11-09-2024 15:31-0400 Heart rate 93 /min Dr. Ty Narayanan MD Work Phone: 1(721)700-297963 [place] [address] 11-09-2024 15:31-0400 Respiratory rate 17 /min Dr. Ty Narayanan MD Work Phone: 5(245)305-248063 [place] [address] 11-09-2024 15:31-0400 SaO2% (BldA) [Mass fraction] 98 % Dr. Ty Narayanan MD Work Phone: 3(482)791-496263 [place] [address] 11-09-2024 15:31-0400 Systolic blood pressure 159 mm[Hg] Dr. Ty Narayanan MD Work Phone: 8(412)457-108863 [place] [address] 11-09-2024 15:30-0400 Body temperature 98.4 [degF] Dr. Ty Narayanan MD Work Phone: [facility] 11-09-2024 12:33-0400 Body height 177.[address] Ty Narayanan MD Work Phone: [facility] 11-09-2024 12:33-0400 Body mass index (BMI) [Ratio] 54.1 kg/m2 Dr. Ty Narayanan MD Work Phone: [facility] 11-09-2024 12:33-0400 Body weight 171.[address] Ty Narayanan MD Work Phone: [facility] 05-04-2024 14:55-0500 Body height 171.5 cm Bronwyn Solo DIAPHRAGM BUILDER.GRADUATE TEACHING ASSOCIATE Work Phone: [facility] 05-04-2024 14:55-0500 Body mass index (BMI) [Ratio] 55.28 kg/m2 Bronwyn Solo DIAPHRAGM BUILDER.GRADUATE TEACHING ASSOCIATE Work Phone: [facility] 05-04-2024 14:55-0500 Body weight 162.6 kg Bronwyn Hughesf DIAPHRAGM BUILDER.GRADUATE TEACHING ASSOCIATE Work Phone: [facility] 05-04-2024 14:55-0500 Diastolic blood pressure 96 mm[Hg] Bronwyn Danielshof DIAPHRAGM BUILDER.GRADUATE TEACHING ASSOCIATE Work Phone: [facility] 05-04-2024 14:55-0500 Heart rate 72 /min Bronwyn Danielshof DIAPHRAGM BUILDER.GRADUATE TEACHING ASSOCIATE Work Phone: [facility] 05-04-2024 14:55-0500 Respiratory rate 18 /min Bronwyn Danielshodiana DIAPHRAGM BUILDER.GRADUATE TEACHING ASSOCIATE Work Phone: [facility] 05-04-2024 14:55-0500 SaO2% (BldA) [Mass fraction] 96 % Bronwyn Solo DIAPHRAGM BUILDER.GRADUATE TEACHING ASSOCIATE Work Phone: [facility] 05-04-2024 14:55-0500 Systolic blood pressure 130 mm[Hg] Bronwyn Danielshof DIAPHRAGM BUILDER.GRADUATE TEACHING ASSOCIATE Work Phone: [facility] 11-14-2022 09:41-0400 Body temperature 98.9 [degF] [facility] 11-14-2022 09:41-0400 Diastolic blood pressure 87 mm[Hg] [facility] 11-14-2022 09:41-0400 Heart rate 78 /min [facility] 11-14-2022 09:41-0400 Respiratory rate 16 /min [facility] 11-14-2022 09:41-0400 SaO2% (BldA) [Mass fraction] 95 % [facility] 11-14-2022 09:41-0400 Systolic blood pressure 104 mm[Hg] [facility] 11-14-2022 07:07-0400 Body height 177.8 cm [facility] 11-14-2022 07:07-0400 Body mass index (BMI) [Ratio] 52.2 kg/m2 [facility] 11-14-2022 07:07-0400 Body weight 165 kg [facility] 11-04-2022 13:58-0400 Body weight 163.29 kg Carolina Galloway MD Work Phone: [facility] 11-04-2022 13:58-0400 Diastolic blood pressure 86 mm[Hg] Carolina Galloway MD Work Phone: [facility] 11-04-2022 13:58-0400 Systolic blood pressure 132 mm[Hg] Carolina Galloway MD Work Phone: [facility] 09-09-2022 11:47-0400 Body weight 160.57 kg Linda Carcamo MD Work Phone: [facility] 09-09-2022 11:47-0400 Diastolic blood pressure 84 mm[Hg] Linda Carcamo MD Work Phone: [facility] 09-09-2022 11:47-0400 Systolic blood pressure 132 mm[Hg] Linda Carcamo MD Work Phone: [facility] 07-04-2022 09:05-0400 Body weight 161.93 kg Linda Carcamo MD Work Phone: [facility] 07-04-2022 09:05-0400 Diastolic blood pressure 84 mm[Hg] Linda Carcamo MD Work Phone: [facility] 07-04-2022 09:05-0400 Systolic blood pressure 134 mm[Hg] Linda Carcamo MD Work Phone: [facility] 03-19-2022 14:20-0500 Body height 177.[address] Ty Narayanan Work Phone: [facility] 03-19-2022 14:20-0500 Body mass index (BMI) [Ratio] 50.4 kg/m2 Dr. Ty Narayanan Work Phone: [facility] 03-19-2022 14:20-0500 Body weight 159.[address] Ty Narayanan Work Phone: [facility] 01-16-2022 10:41-0400 Body weight 156.49 kg Bronwyn Solo DIAPHRAGM BUILDER.GRADUATE TEACHING ASSOCIATE Work Phone: [facility] 01-16-2022 10:41-0400 Diastolic blood pressure 94 mm[Hg] Bronwyn Solo DIAPHRAGM BUILDER.GRADUATE TEACHING ASSOCIATE Work Phone: [facility] 01-16-2022 10:41-0400 Heart rate 86 /min Bronwyn Solo DIAPHRAGM BUILDER.GRADUATE TEACHING ASSOCIATE Work Phone: [facility] 01-16-2022 10:41-0400 Respiratory rate 20 /min Bronwyn Solo DIAPHRAGM BUILDER.GRADUATE TEACHING ASSOCIATE Work Phone: [facility] 01-16-2022 10:41-0400 SaO2% (BldA) [Mass fraction] 96 % Bronwyn Solo DIAPHRAGM BUILDER.GRADUATE TEACHING ASSOCIATE Work Phone: [facility] 01-16-2022 10:41-0400 Systolic blood pressure 140 mm[Hg] Bronwyn Solo DIAPHRAGM BUILDER.GRADUATE TEACHING ASSOCIATE Work Phone: [facility] 06-21-2021 10:45-0400 Body weight 159.39 kg Ty Narayanan MD Work Phone: [facility] 06-21-2021 10:45-0400 Diastolic blood pressure 90 mm[Hg] Ty Narayanan MD Work Phone: [facility] 06-21-2021 10:45-0400 Heart rate 74 /min Ty Narayanan MD Work Phone: [facility] 06-21-2021 10:45-0400 Respiratory rate 16 /min Ty Narayanan MD Work Phone: [facility] 06-21-2021 10:45-0400 Systolic blood pressure 140 mm[Hg] Ty Narayanan MD Work Phone: [facility] Encounters Encounter Date Encounter Type Care Provider Facility Start: 12-27-2024 Non-patient / Non-visit Dr. Binu Troncoso MD -[facility] Start: 12-27-2024 End: 01-02-2025 ambulatory Ty Narayanan Facility:[facility] Start: 12-27-2024 End: 01-02-[address] Binu Troncoso MD -Wound Healing [facility] [employer] Work Phone: Start: 12-20-2024 Non-patient / Non-visit Dr. Binu Troncoso MD [facility] Start: 12-20-2024 End: 12-20-[address] Ty Narayanan MD Work Phone: [facility] Start: 12-20-2024 End: 12-20-[address] Binu Troncoso MD -Wound Healing [facility] Work Phone: Start: 12-06-2024 Non-patient / Non-visit Dr. Binu Troncoso MD [facility] Start: 11-29-2024 Non-patient / Non-visit Dr. Binu Troncoso MD [facility] Start: 11-22-2024 Non-patient / Non-visit Dr. Binu Troncoso MD [facility] Start: 11-14-2024 Non-patient / Non-visit Dr. Miguel Angel arzate MD [facility] Start: 11-14-2024 End: 11-14-[address] Ty Narayanan MD Work Phone: -Laboratory Future Start: 11-14-2024 End: 11-14-[address] Miguel Angel Vargas MD -Laboratory Future Work Phone: Start: 11-14-2024 End: 11-14-2024 ambulatory [facility] Facility:[facility] Start: 11-09-2024 End: 11-09-2024 Emergency department patient visit Dr. Ty Narayanan MD Work Phone: -Emergency Department Work Phone: Start: 11-04-2024 End: 11-04-2024 Telephone encounter Ty Narayanan MD Work Phone: [facility] Comment on above: Patient Update Start: 05-04-2024 End: 05-04-2024 ambulatory TY NARAYANAN Facility:[facility] Start: 05-04-2024 End: 05-04-2024 Patient encounter procedure Bronwyn Solo APRN.GRADUATE TEACHING ASSOCIATE Work Phone: [facility] Comment on above: Medicare annual well ness [...] Ty Narayanan MD Work Phone: [facility] [place] Comment on above: Refill Request Start: 01-28-2024 End: 01-28-2024 Refill Ty Narayanan MD Work Phone: [facility] [place] Comment on above: Refill Request Start: 12-28-2023 End: 12-28-2023 Refill Ty Narayanan MD Work Phone: [facility] [place] Comment on above: Refill Request Start: 12-11-2023 End: 12-16-2023 Telephone encounter Linda Carcamo MD Work Phone: OB/Gynecology Comment on above: Refill Request Start: 12-08-2023 End: 12-08-2023 Refill Linda Carcamo MD Work Phone: OB/Gynecology Comment on above: Refill Request Start: 10-21-2023 Telephone encounter Ty meeks MD Work Phone: [facility] Comment on above: Patient Question Start: 08-19-2023 ambulatory Ty cotto MD Work Phone: Internal Medicine [place] [id number] Start: 08-14-2023 Telephone encounter Ty meeks MD Work Phone: Family Medicine [facility] Comment on above: Question Start: 07-28-2023 Refill Ty cotto MD Work Phone: [facility] Comment on above: Refill Request Start: 07-15-2023 Refill Linda Carcamo MD Work Phone: OB/Gynecology Comment on above: Refill Request Start: 02-16-2023 Telephone encounter Linda Carcamo MD Work Phone: OB/Gynecology Comment on above: AUB Start: 01-16-2023 Telephone encounter Linda Carcamo MD Work Phone: OB/Gynecology Comment on above: Patient Question Start: 01-13-2023 Telephone encounter Linda Carcamo MD Work Phone: OB/Gynecology Comment on above: AUB Start: 11-14-2022 End: 11-14-2022 Admission to same day surgery center [facility] Start: 11-14-2022 End: 11-14-2022 ambulatory [facility] Work Phone: Start: 11-04-2022 End: 11-04-2022 Patient encounter procedure Carolina Galloway MD Work Phone: OB/Gynecology Comment on above: PMB (postmenopausal bleeding) (Primary Dx); Endometrial polyp Start: 10-29-2022 Telephone encounter Linda Carcamo MD Work Phone: OB/Gynecology Comment on above: Insurance Authorizat ion Start: 09-24-2022 Admission to [facility] Linda Carcamo MD Work Phone: OB/Gynecology Comment on above: surgery confirmation Start: 09-24-2022 E-mail encounter tejal rivas caregiver Linda Carcamo MD Work Phone: [facility] Start: 09-10-2022 ambulatory Ty cotto MD Work Phone: Internal Medicine [facility] [place] Start: 09-09-2022 End: 09-09-2022 Patient encounter procedure Linda Carcamo MD Work Phone: OB/Gynecology Comment on above: PMB (postmenopausal bleeding) (Primary Dx); Endometrial polyp; Endometrial hyperplasia Start: 09-04-2022 Refill Ty cotto MD Work Phone: [facility] Comment on above: Refill Request Appointment Start: 08-22-2022 Telephone encounter Ty meeks MD Work Phone: [facility] Comment on above: Forms (Rx fo pneumat ic compression device from [employer]. ) Start: 07-25-2022 End: 07-25-2022 ambulatory Ob Ultrasound Work Phone: OB/Gynecology Comment on above: [employer] Ultrasound Start: 07-25-2022 End: 07-25-2022 Patient encounter procedure [employer] [place] [facility] Work Phone: [facility] Start: 07-10-2022 Telephone encounter Linda Carcamo MD [...] 06-12-2022 Refill Ty cotto MD Work Phone: [facility] Comment on above: Refill Request Start: 05-12-2022 End: 05-12-[address] Ty Narayanan Work Phone: [facility] Start: 05-09-2022 End: 05-09-[address] Ty Narayanan Work Phone: [facility] Work Phone: Start: 05-09-2022 End: 05-09-[address] Ty Narayanan Work Phone: [facility] Start: 03-27-2022 Telephone encounter Teressa mcfarlane DIAPHRAGM BUILDER.GRADUATE TEACHING ASSOCIATE Work Phone: OB/Gynecology Comment on above: Appointment (Patient needs to call billing about [employer]. She [place] to come to [place] Start: 03-19-2022 End: 03-19-[address] Ty Narayanan Work Phone: [facility] Start: 03-10-2022 End: 03-10-[address] Ty Naraynaan Work Phone: [facility] Start: 02-11-2022 Refill Ty cotto MD Work Phone: [facility] Comment on above: Refill Request Start: 01-23-2022 Telephone encounter Bronwyn nair DIAPHRAGM BUILDER.GRADUATE TEACHING ASSOCIATE Work Phone: [facility] Comment on above: Results (Labs ) Start: 01-16-2022 End: 01-16-2022 Patient encounter procedure Bronwyn Solo GRADUATE TEACHING ASSOCIATE Work Phone: [facility] Comment on above: Major depressive dis order, recurrent episode, moderate (HCC) (Primary Dx); Insomnia, unspecified type; Arthritis of both knees; Vitamin D deficiency; Screening for diabetes mellitus; Screening cholesterol level Start: 09-09-2021 Telephone encounter Ty meeks MD Work Phone: [facility] Comment on above: handicap parking scr ipt Start: 07-05-2021 End: 07-05-2021 Patient encounter procedure [facility] Start: 06-21-2021 End: 06-21-2021 Patient encounter procedure Ty Narayanan MD Work Phone: [facility] Comment on above: Major depressive dis order, recurrent episode, moderate (HCC) (Primary Dx); Insomnia, unspecified type; Arthritis of both knees Start: 04-17-2017 Ambulatory Clint Devine Facilit y:[place] Start: 03-05-2017 End: 03-05-2017 Ambulatory Clint Devine Work Phone: [facility] Start: 02-18-2017 Ambulatory Clint Devine Facilit y:[place] Start: 02-18-2017 End: 02-18-2017 Ambulatory Clint Devine Work Phone: [facility] Procedures Date Procedure Procedure Detail Performing [...] 12-30-2016 Mammography Ty Narayanan MD Work Phone: H/O: section History of C-sectio n Dr. Ty Narayanan MD Work Phone: History of operative procedure on knee Status post bilateral knee replacements History of operative procedure on knee Status post bilateral knee replacements Dr. Binu Troncoso MD History of operative procedure on knee Status post bilateral knee replacements Dr. Binu Troncoso MD Plan of Treatment Date Care Activity Detail Author Start: 01-12-2031 Urine microalbumin profile [facility] Start: 01-16-2027 Lipid 1996 panel - Serum or Plasma Lipid Screening [facility] Start: 01-16-2027 Lipid panel Lipid Screening [facility] Start: 01-16-2027 LIPID SCREEN LIPID SCREEN [facility] Start: 11-06-2025 LIPID SCREEN LIPID SCREEN [facility] Start: 05-04-2025 Anxiety Screening Anxiety Screening [facility] Start: 05-04-2025 Pneumococcal Vaccine : 50+ (1 of 1 - PCV) Pneumococcal Vaccine: 50+ (1 of 1 - PCV) [facility] Comment on above: Postponed from 12/21 (Declined at this time) Start: 05-04-2025 RSV Vaccine (1 - Ris k 60-74 years 1-dose series) RSV Vaccine (1 - Risk 60-74 years 1-dose series) [facility] Comment on above: Postponed from 12/21 (Declined at this time) Start: 05-04-2025 Shingrix Vaccine (1 of 2) Shingrix Vaccine (1 of 2) [facility] Comment on above: Postponed from 12/21 (Declined at this time) Start: 01-16-2025 DIABETES SCREEN DIABETES SCREEN [facility] Start: 01-16-2025 Diabetes Screening Diabetes Screenin g [facility] Start: 11-09-2024 [facility] Start: 06-01-2024 End: 06-01-2024 Follow-up encounter 06/01/2024 5:00 PM EDT [facility] [address] [place] [address] Bronwyn Solo APRN.GRADUATE TEACHING ASSOCIATE [address] [facility] [place] [address] 1 month follow up [facility] [place] Comment on above: 1 month follow up Start: 05-04-2024 End: 08-03-2024 25-hydroxyvitamin D3 [Mass/volume] in Serum or Plasma VITAMIN D 25 HYDROXY Lab Routine Fatigue, unspecified type Vitamin D deficiency Expected: 05/04/2024, Expires: 08/03/2024 [facility] Work Phone: Comment on above: Expected: 05/04/2024 , Expires: 08/03/2024 Start: 05-04-2024 End: 08-03-2024 CBC W Auto Differential panel - Blood COMPLETE BLOOD COUNT AND DIFFERENTIAL Lab Routine Fatigue, unspecified type Expected: 05/04/2024, Expires: 08/03/2024 [facility] Comment on above: Expected: 05/04/2024 , Expires: 08/03/2024 Start: 05-04-2024 End: 08-03-2024 Cobalamin (Vitamin B12) [Mass/volume] in Serum or Plasma VITAMIN B12 Lab Routine Fatigue, unspecified type Expected: 05/04/2024, Expires: 08/03/2024 [facility] Comment on above: Expected: 05/04/2024 , Expires: 08/03/2024 Start: 05-04-2024 End: 08-03-2024 Comprehensive metabolic 2000 panel - Serum or Plasma COMPREHENSIVE METABOLIC PANEL Lab Routine Medicare annual wellness visit, subsequent Expected: 05/04/2024, Expires: 08/03/2024 [facility] Comment on above: Expected: 05/04/2024 , Expires: 08/03/2024 Start: 05-04-2024 End: 08-03-2024 Ferritin [Mass/volume] in Serum or Plasma FERRITIN Lab Routine Fatigue, unspecified type Expected: 05/04/2024, Expires: 08/03/2024 [facility] Comment on above: Expected: 05/04/2024 , Expires: 08/03/2024 Start: 05-04-2024 End: 08-03-2024 Hemoglobin A1c in Blood HEMOGLOBIN A1C Lab Routine Fatigue, unspecified type Expected: 05/04/2024, Expires: 08/03/2024 [facility] Comment on above: Expected: 05/04/2024 , Expires: 08/03/2024 Start: 05-04-2024 End: 08-03-2024 Iron and Iron binding capacity panel - Serum or Plasma IRON AND TIBC Lab Routine Fatigue, unspecified type Expected: 05/04/2024, Expires: 08/03/2024 [facility] Comment on above: Expected: 05/04/2024 , Expires: 08/03/2024 Start: 05-04-2024 End: 08-03-2024 Lipid 1996 panel - Serum or Plasma LIPID PANEL BASIC Lab Routine Hyperlipidemia LDL goal <100 Expected: 05/04/2024, Expires: 08/03/2024 [facility] Comment on above: Expected: 05/04/2024 , Expires: 08/03/2024 Start: 05-04-2024 End: 08-03-2024 Thyrotropin [Units/volume] in Serum or Plasma THYROID STIMULATING HORMONE Lab Routine Fatigue, unspecified type Expected: 05/04/2024, Expires: 08/03/2024 [facility] Comment on above: Expected: 05/04/2024 , Expires: 08/03/2024 Start: 04-06-2024 Covid-19 Vaccine (2022- season) Covid-19 Vaccine ( season) [facility] Comment on above: Postponed from 11/21 (Declined at this time) Start: 04-06-2024 RSV Vaccine (1 - 1-d ose 60+ series) RSV Vaccine (1 - 1-dose 60+ series) [facility] Comment on above: Postponed from 12/21 (Declined at this time) Start: 04-06-2024 RSV Vaccine (1 - Ris k 60-74 years 1-dose series) RSV Vaccine (1 - Risk 60-74 years 1-dose series) [facility] Comment on above: Postponed from 12/21 (Declined at this time) Start: 02-10-2024 End: 02-10-2024 Patient encounter procedure 02/10/2024 9:00 AM EST Office Visit OB/Gynecology [address] [place] [address] Linda Rodriguez MD [address] [place] [address] [facility] Comment on above: [facility] Start: 12-15-2023 HPV TESTING HPV TESTING [facility] Start: 12-15-2023 PAP TESTING PAP TESTING [facility] Start: 12-15-2023 Screening for malign ant neoplasm of cervix [facility] Start: 11-22-2023 Covid-19 Vaccine ( season) Covid-19 Vaccine ( season) [facility] Start: 11-22-2023 Covid-19 Vaccine () Covid-19 Vaccine () [facility] Start: 11-22-2023 Influenza vaccination [facility] Start: 11-07-2023 DIABETES SCREEN DIABETES SCREEN [facility] Start: 01-16-2023 COVID-19 VACCINE (#1) COVID-19 VACCI NE (#1) [facility] Comment on above: Postponed from 06/21 (Declined at this time) Start: 01-16-2023 HEPATITIS B (1 of 3 - 3-dose series) HEPATITIS B (1 of 3 - 3-dose series) [facility] Comment on above: Postponed from 12/21 (Declined at this time) Start: 01-16-2023 SHINGRIX VACCINE (1 of 2) SHINGRIX VACCINE (1 of 2) [facility] Comment on above: Postponed from 12/21 (Declined at this time) Start: 2022 RSV Vaccine (1 - 1-d ose 60+ series) RSV Vaccine (1 - 1-dose 60+ series) [facility] Start: 2022 RSV Vaccine (1 - Ris k 60-74 years 1-dose series) RSV Vaccine (1 - Risk 60-74 years 1-dose series) [facility] Start: 11-21-2022 Influenza vaccination [facility] Start: 11-14-2022 Ambulation without limitation [facility] Start: 11-14-2022 Medical regimen orde rs management [facility] Start: 11-14-2022 Medication education [facility] Start: 11-14-2022 Patient discharge [facility] Start: 11-14-2022 Procedure discontinued [facility] Start: 11-14-2022 Taking patient vital signs [facility] Start: 11-14-2022 Vital signs measurements [facility] Start: 11-14-2022 [facility] Start: 09-19-2022 Influenza vaccination INFLUENZA (#1) [facility] Comment on above: Postponed from 11/21 (Declined at this time) Start: 07-04-2022 End: 07-05-2023 PELVIC US WHI PELVIC US [facility] Anc Imaging Routine PMB (postmenopausal bleeding) Expected: 07/04/2022, Expires: 07/05/2023 [facility] Work Phone: Comment on above: Expected: 07/04/2022 , Expires: 07/05/2023 Start: 01-16-2022 End: 03-18-2022 25-hydroxyvitamin D3 [Mass/volume] in Serum or Plasma [facility] Work Phone: Comment on above: Expected: 01/16/2022 , Expires: 03/18/2022 Start: 01-16-2022 End: 03-18-2022 Comprehensive metabolic 2000 panel - Serum or Plasma [facility] Work Phone: Comment on above: Expected: 01/16/2022 , Expires: 03/18/2022 Start: 01-16-2022 End: 03-18-2022 Hemoglobin A1c in Blood [facility] Work Phone: Comment on above: Expected: 01/16/2022 , Expires: 03/18/2022 Start: 01-16-2022 End: 03-18-2022 Lipid 1996 panel - Serum or Plasma [facility] Work Phone: Comment on above: Expected: 01/16/2022 , Expires: 03/18/2022 Start: 11-21-2021 Influenza vaccination INFLUENZA (Sea son Ended) [facility] Start: 06-24-2018 COLORECTAL CANCER SCREENING COLORECTAL CANCER SCREENING [facility] Start: 06-24-2018 FECAL OCCULT BLOOD FECAL OCCULT BLOO D [facility] Start: 06-24-2018 Screening for malign ant neoplasm of colon [facility] Start: 12-30-2017 Mammography [facility] Start: 12-30-2017 Screening for malign ant neoplasm of breast Mammogram Screening [facility] Start: 2012 Pneumococcal Vaccine : 50+ (1 of 1 - PCV) Pneumococcal Vaccine: 50+ (1 of 1 - PCV) [facility] Start: 2012 SHINGRIX VACCINE (1 of 2) SHINGRIX VACCINE (1 of 2) [facility] Start: 12-22-2007 COLOGUARD (FIT-DNA) COLOGUARD (FIT-D NA) [facility] Start: 12-22-2007 Colonoscopy COLONOSCOPY [facility] Start: 12-22-[address] COLONOGRAPHY [facility] Start: 12-22-2007 Screening for malign ant neoplasm of colon [facility] Start: 12-22-2007 SIGMOIDOSCOPY SIGMOIDOSCOPY [facility] Start: 1980 Anxiety Screening Anxiety Screening [facility] Start: 12-22-1967 COVID-19 VACCINE (#1) COVID-19 VACCI NE (#1) [facility] Start: 12-22-1967 COVID-19 VACCINE (1) COVID-19 VACCIN E (1) [facility] Start: 06-22-1963 Covid-19 Vaccine (#1) Covid-19 Vacci ne (#1) [facility] COLOGUARD COLOGUARD Lab Ro utine Screening for colon cancer Ordered: 05/04/2024 [facility] Comment on above: Ordered: 05/04/2024 End: 06-03-2025 DBT Breast - bilateral screening LEONIE SCREENING W STEVEN Radiology Routine Encounter for screening mammogram for breast cancer 1 Occurrences starting 05/04/2024 until 06/03/2025 [facility] Comment on above: 1 Occurrences starti ng 05/04/2024 until 06/03/2025 Endometrial bx w/wo endocervix bx w/o dilat spx ENDOMETRIAL BIOPSY Procedures Routine PMB (postmenopausal bleeding) Ordered: 07/04/2022 [facility] Work Phone: Comment on above: Ordered: 07/04/2022 End: 10-10-2023 LEONIE SCREENING LEONIE SCREENING Radiology Routine Encounter for screening mammogram for breast cancer 1 Occurrences starting 09/10/2022 until 10/10/2023 [facility] Work Phone: Comment on above: 1 Occurrences starti ng 09/10/2022 until 10/10/2023 End: 09-17-2024 MG Breast Screening LEONIE SCREENING Radiology Routine Encounter for screening mammogram for breast cancer 1 Occurrences starting 08/19/2023 until 09/17/2024 [facility] Work Phone: Comment on above: 1 Occurrences starti ng 08/19/2023 until 09/17/2024 Patient Education Cellulitis Dc ED Lymphedema [facility] Work Phone: Patient referral [facility] Work Phone: SURGICAL PATHOLOGY SURGICAL PATH OLOGY Lab Routine PMB (postmenopausal bleeding) 07/04/2022 11:43 AM EDT [facility] Work Phone: [facility] Immunizations Immunization Date Immunization Notes Care Provider Fa [facility] 01-12-2021 tetanus toxoid, reduced diphtheria toxoid, and acellular pertussis vaccine, adsorbed Ty Narayanan MD Work Phone: [facility] Work Phone: 01-04-2018 influenza virus vaccine, unspecified formulation Linda Carcamo MD Work Phone: [facility] 03-10-2008 tetanus and diphther ia toxoids, adsorbed, preservative free, for adult use (2 Lf of tetanus toxoid and 2 Lf of diphtheria toxoid) Ty Narayanan MD Work Phone: [facility] Payers Date Payer Category Payer Medicare [id number] 2024 Self-pay [id number] 2022 Medicare (Managed Care) [id number] 2022 Medicare [id number] 2021 Medicare [id number] 2020 Medicare [employer] [facility] SNP [id number] 2020-Present [phone] [address] [place] [address] O [id number] 2013 Medicare [id number] Medicaid [id number] Private Health Insurance [id number] Unknown [id number] Unknown [id number] Unknown [id number] 64 Unknown [id number] 64 Unknown [id number] 64 Unknown [id number] 64 Social History Date Type Detail Facility Start: 03-06-2017 End: 11-07-2022 Tobacco smoking status NHIS Unknown if ever smoked [facility] Start: 1960 Sex Assigned At Not on file [facility] [employer] Work Phone: Start: 11-09-2024 End: 11-14-2024 Tobacco smoking status NHIS Never smoked tobacco [facility] Start: 06-21-2021 End: 04-06-2023 Alcohol intake Current non-drinker of alcohol (finding) [facility] Start: 06-11-2021 End: 01-16-2022 Exposure to SARS-CoV-2 (event) Not sure [facility] Start: 08-17-2018 Occasional [facility] Start: 08-17-2018 None [facility] Start: 08-17-2018 Alone [facility] Start: 09-20-2018 Non-smoker [facility] Start: 1960 Sex Assigned At Female W [facility] Start: 09-09-2022 End: 05-04-2024 History of Social function [facility] Start: 09-09-2022 End: 05-04-2024 Tobacco use panel [facility] Start: 02-22-2012 Adult Depression Screening Assessment 6 [facility] How often to you hav e a drink containing alcohol? Monthly or less [facility] How many standard drinks containing alcohol do you have on a typical day? 3 or 4 [facility] How often do you hav e 6 or more drinks on 1 occasion? Less than monthly [facility] How often do you hav e 6 or more drinks on 1 occasion? Monthly [facility] NEGATED: Highlighted row [facility] Medical Equipment Procedure Code Equipment Code Equipment Origin al Text Equipment Identifier Dates Mauri Bn Smpx P To bra Fd - [id number] Start: 05-11-2014 Mauri Bn Smpx P To bra Fd - [id number] Start: 07-25-2014 Mauri Bn Smpx P To bra Fd - [id number] Start: 07-25-2014 Mauri Bn Smpx P To bra Fd - [id number] Start: 07-25-2014 Baseplt Tib Trth ln 5 Unv Kn - [id number] Start: 07-25-2014 Restric Mauri Med Unv Insrt - [id number] Start: 07-25-2014 Comp Fem 5 Rt Kn Total Stab - [id number] Start: 07-25-2014 Stem Fem 100mm 1 4mm Prft Flut - [id number] Start: 07-25-2014 Stem Fem 104mm 1 5mm Prft Flut - [id number] Start: 07-25-2014 Ins Tib 5 9mm X3 Total Stab+ - [id number] Start: 07-25-2014 Nail 11mm 380mm Fem Im Unv Ss - [id number] Start: 05-11-2014 BALL TIPPED GUID E [...] serious difficulty hearing No 10/18/2014 3:59 PM EDT Maria A Wilson MA No [facility] 10-18-2014 Are you blind, or do you have serious difficulty seeing, even when wearing glasses No 10/18/2014 3:59 PM EDT Maria A Wilson MA No [facility] 10-18-2014 Do you have serious difficulty walking or climbing stairs No 10/18/2014 3:59 PM EDT Maria A Wilson MA [facility] 10-18-2014 Do you have difficul ty dressing or bathing No 10/18/2014 3:59 PM EDT Maria A Wilson MA [facility] 10-18-2014 Because of a physica l, mental, or emotional condition, do you have difficulty doing errands alone such as visiting a physician's office or shopping No 10/18/2014 3:59 PM EDT Maria A Wilson MA [facility] Mental Status Date Assessment Result Facility 11-14-2022 Cognitive function Voice/Name [facility] Work Phone: 10-18-2014 Because of a physica l, mental, or emotional condition, do you have serious difficulty concentrating, remembering, or making decisions No 10/18/2014 3:59 PM EDT Maria A Wilson MA [facility] Clinical Notes 04-28-2017 to 12-29-2024 Note Date & Type Note Facility 12-29-2024 History and physi tony note Note Date/Time December 29, 2024 11:57am [facility] [address] [place] [address] H&P Exam - Wound Care 12/29/24 1144 MR#: [id number] Acct: [id number] Name: MEGHA CIFUENTES Rep #:[id number] : 1960 64 From: Binu Morgan PCP: Dr. Ty Narayanan MD Status:RE G RCR Location: History of Present Illness Date of Service: 12/27/24 Chief Complaint: Bilateral lower extremity swelling and edema; severe venous stasis dermatitis History of Wound: This is a 64-year-old morbidly obese female who presented withsevere swelling and edema in both lower extremities, which had been chronic in nature. 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 She presented with severe swelling, edema, and lymphedema in both lower extremities. Her lower extremities also demonstrated severe, exudative venous stasis dermatitis, hyperpigmentation, and lipodermatosclerosis. The patient claimed to sleep on a flat mattress at night. She is not active. She denied a history of thrombophlebitis. The patient denied a history of diabetes mellitus,myocardial infarction, congestive heart failure, cerebrovascular accident, hypertension, pulmonary disease, renal disease, hyperlipidemia, and thyroid disease. The patient was seen and evaluated in the [facility] Emergency Department on November 09, 2024, at which time a prescription for oral Keflex was issued for lower extremity cellulitis. [facility] Medical History Lipodermatosclerosis Dependent edema Venous stasis dermatitis of both lower extremities Leg edema, left Leg edema, right Left leg swelling Right leg swelling Lymphedema Chronic venous insufficiency Wears dentures Alcohol use Arthritis Restless legs [...] Smoking Status: Never smoker alcohol intake: never Physical Exam Const alert, oriented x3, no apparent distress, no limitations and well nourished Constitutional Narrative: The patient is morbidly obese. Her BMI is 54.2. General Appearance: cooperative, comfortable and well developed Orientation / Consciousness: awake, oriented to person, oriented to place and oriented to time Exam Limitations: no limitations Nutritional Appearance: obese morbidly obese HEENT normocephalic and head/scalp atraumatic Head and Scalp: normal to inspection, normocephalic and atraumatic Face and Sinus: normal facial exam Nose: external nose normal External Ear: external ears normal Eyes EOMs intact bilaterally General Eye: normal appearance of both eyes Neck full ROM Resp normal respiratory effort, normal air movement, no retractions and no use of accessory muscles Effort and Inspection: able to speak in complete sentences Extremity no calf tenderness General Extremity: Negative for clubbing or cyanosis Skin Wound Narrative: Moderate swelling, edema, and lymphedema persist in the patient's lower extremities bilaterally. There has been mild improvement. The excoriations in the right lower extremity are healed and epithelialized. There are no remainingwounds or ulcerations. The chronic changes related to the patient's chronic venous disease remain, including hyperpigmentation and lipodermatosclerosis in the gaiter areas bilaterally. Neuro oriented x3, CN's II-XII intact bilaterally, moves all extremities, no focal motor deficits and no sensory deficits noted Sensorium / Orientation: awake, alert, oriented to person, oriented to place andoriented to time Speech: speech normal Psych Appearance: grossly normal and appropriate Attitude: calm Activity / Motor Behavior: appropriate eye contact Speech: normal speech Mood & Affect: euthymic mood Attention / Concentration: attention grossly intact Debridement Note Debridement Note No debridement was completed: No debridement was completed today Post-Debridement Measurements and Additional Note: Post-Debridement Measurements/Treatment SHIVA - Nurse 1 - General Ulcer Assessment Start: 12/23/24 10:11 Freq: Status: Active Protocol: LAXMI Activity Type Activity Date Activity User E-sign Co-sign Detail Recorded Client Recorded Date Recorded By Document 12/23/24 10:11 DS [id number] 12/23/24 10:14 DS Document 12/27/24 10:34 JF [id number] 12/27/24 10:44 JF Edit Result 12/27/24 10:34 JF (1) [id number] 12/27/24 10:46 JF (1) Blood Pressure (90/60-120/80) => 122/70 H Blood Pressure Mean => 87 Source => Monitor Position => Semi-Fowlers Blood Pressure Location => Left Arm 12/23/24 12/27/24 10:11 10:34 WC - Today's Visit Information Type of service Nurse-only Follow-up Visit Visit (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 ) Arrival Mode Ambulatory Ambulatory Patient Identification Verified (Name & No ) Vital Signs Temperature (97.8 F-99.1 F) 96.3 F L 96.3 F L Temperature Source Temporal Temporal Pulse Rate (60-100) 82 86 Pulse Location Monitor Monitor Respiratory Rate (12-18) 18 16 Respiratory rate source Observation Observation Oxygen Delivery Method Room Air Blood Pressure (90/60-120/80) 142/70 H 122/70 H Blood Pressure Mean 94 87 Source Monitor Monitor Position Sitting Semi-Fowlers Blood Pressure Location Left Forearm Left Arm History Since Last Visit- (Skip if this is Patient's initial visit) Have you changed medications since your Yes last visit? Any new allergies or adverse reactions No Had a fall/change in ADL's that may No increase risk of falls Signs or symptoms of abuse and/or No neglect since last visit Have you been in the hospital since your No last visit? Has dressing in place as prescribed Yes Has compression in place as prescribed Yes Has offloadiing in place as prescribed N/A Experienced any changes in pain level or No management Left Footwear Regular Shoe Right Footwear Regular Shoe Pain Scale: 0-10 Numeric Is Patient Pain Free? Yes Yes SHIVA - Nurse 1 - General Ulcer Measurement Start: 12/23/24 10:11 Freq: Status: Active Protocol: Activity Type Activity Date Activity User E-sign Co-sign Detail Recorded Client Recorded Date Recorded By Document 12/27/24 10:34 JF [id number] 12/27/24 10:44 JF 12/27/24 10:34 Wound Center Nurse 1 RIGHT POSTERIOR LE -Combined with other wound No -Current Size (cm) - Length 0.1 -Current Size (cm) - Width 0.1 -Current Size (cm) - Depth 0.1 -Total Square Cm 0.01 -Photo Taken Yes -Epithelialization Large 67-100% -Tunneling No -Undermining/Tunneling No -Circular Undermining No -Exudate Amt Small -Exudate Type Serosanguineous -Wound Margin Flat & Intact -Granulation Amt None Present (0 %) -Slough/Fibrin No -Structure Exposed N/A -Texture (Lenora-wound Skin Appearance) Assessed -Moisture (Lenora-wound Skin Appearance) No Abnormality, Dry/Scaly -Color (Lenora-wound Skin Appearance) Assessed -Temperature (Lenora-wound Skin No Abnormality Appearance) (Pt Warm) -Tenderness on Palpation (Lenora-wound No Skin Appearance) -Ulcer Cleansing Soap and Water -Foul Odor after Cleansing No Lower Limb Edema Present Yes Right Calf (cm) 70 Right Ankle (cm) 37.0 Left Calf (cm) 65.0 Left Ankle (cm) 36.2 WC - Nurse 2 - General Ulcer CM Notes Start: 12/23/24 10:11 Freq: Status: Active Protocol: Activity Type Activity Date Activity User E-sign Co-sign Detail Recorded Client Recorded Date Recorded By Document 12/27/24 10:53 DS [id number] 12/27/24 10:53 DS 12/27/24 10:53 Wound Center Nurse 2 RIGHT POSTERIOR LE -Time 10:53 -Correct Patient Yes -Correct Side, Site, Position Yes -Procedure Performed No -Wound/Ulcer Outcome Healed- Epithelialized Pain Scale: 0-10 Numeric Is Patient Pain Free? Yes WC - Nurse 3 - General Ulcer D/C NN Start: 12/23/24 10:11 Freq: Status: Active Protocol: Activity Type Activity Date Activity User E-sign Co-sign Detail Recorded Client Recorded Date Recorded By Document 12/23/24 10:36 DS [id number] 12/23/24 10:52 DS Document 12/27/24 11:22 RB [id number] 10/07/25 11:23 RB 12/23/24 12/27/24 10:36 11:22 Wound Care Center Nurse 3 RIGHT POSTERIOR LE -Primary Dressing Applied Optilok 5x5 1/2 -Optilok 5x5 1/2 1 -Wound Comment(s) bl le washed lotion applied to lle LLE -Tubular Bandage Double Layer Single Layer -Size of Tubigrip Used Size F Size F -Size F ($) 2 1 -Stockings Yes: pt own circiaids RLE -Multi-Layered Wrap Application Unna Boot - Right -Tubular Bandage Single Layer -Size of Tubigrip Used Size F -Size F ($) 1 -Stockings Yes: pt own circaids -Unna- Right (Qty applied) 1 Treatment Response Procedure Tolerated Well Pain Scale: 0-10 Numeric Is Patient Pain Free? Yes Yes WC - Visit Discharge Discharge Condition Stable Stable Ambulatory Status Ambulatory Ambulatory Transportation Private Auto Private Auto Medication Reconcilliation completed & No provided to patient/care provider Clinical Summary of Care Provided Yes Notes: pt instructed on application of circaids bilat Charges/Coding Visit Charges Office Visits / Consults: 07279 OV L3 Est 20min Assessment/Plan Assessment/Plan (1) Venous stasis dermatitis of both lower extremities: CODE(S): I87.2 - Venous insufficiency (chronic) (peripheral) (2) Chronic venous insufficiency: CODE(S): I87.2 - Venous insufficiency (chronic) (peripheral) (3) Lymphedema: CODE(S): I89.0 - Lymphedema, not elsewhere classified (4) Dependent edema: CODE(S): R60.9 - Edema, unspecified (5) Leg edema, right: CODE(S): R60.0 - Localized edema (6) Leg edema, left: CODE(S): R60.0 - Localized edema (7) Right leg swelling: CODE(S): M79.89 - Other specified soft tissue disorders (8) Left leg swelling: CODE(S): M79.89 - Other specified soft tissue disorders (9) Lipodermatosclerosis: CODE(S): M79.3 - Panniculitis, unspecified (10) Morbid obesity: CODE(S): E66.01 - Morbid (severe) obesity due to excess calories (11) DDD (degenerative disc disease), lumbosacral: CODE(S): M51.37 - Other intervertebral disc degeneration, lumbosacral region (12) History of cellulitis: CODE(S): Z87.2 - Personal history of diseases of the skin and subcutaneoustissue (13) Osteoarthritis: (14) Status post bilateral knee replacements: CODE(S): Z96.653 - Presence of artificial knee joint, bilateral (15) Status post bilateral hip replacements: CODE(S): Z96.643 - Presence of artificial hip joint, bilateral PLAN: Plan This is a 64-year-old morbidly obese female who presented with severe swelling, edema, and lymphedema in her lower extremities, as well as severe venous stasis skin changes in her lower extremities. The right lower extremity was more severely affected. Manifestations included venous stasis dermatitis, hyperpigmentation, and lipodermatosclerosis. The patient is not active. 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 The swelling and edema in the patient's lower extremities is chronic in nature, and had recently become worse. A lengthy discussion has been undertaken with the patient regarding the conservative measures appropriate to the management of her lower extremity swelling and edema. Leg elevation has been encouraged. Elevation is to be to heart level, or higher, as much as possible. She has been encouraged to continue sleeping mariely flat mattress at night. Her legs are to be elevated during daytime hours as well, as much as possible. Prolonged idle sitting has been discouraged. Activity/ambulation has been encouraged. Weight loss has also been discussed, and the patient underwent a dietary consultation at a recent clinic visit. Unfortunately, despite repeated admonitions, the patient has been noncompliant with leg elevation, avoidance of prolonged idle sitting, etc. In fact, she stated I have not had time. She admits that she continues to sleep in a chairwith her legs in a dependent position. Recent laboratory results have been reviewed. Vascular studies have been completed recently, the results of which were as follows: There is no evidence of arterial occlusive disease in the lowerextremities bilaterally. The patient's venous ultrasound study revealed no evidence of deep vein thrombosis on either side. The right great saphenous veinwas noted to be incompetent below the knee. The right small saphenous vein was noted to be incompetent. The accessory saphenous vein in the right proximal calf was also noted to be incompetent. Given the patient's morbid obesity, she is probably not an ideal candidate for a venous ablation procedure at this time. However, this may be a consideration for the future. Because all lower extremity wounds and ulcerations are healed, we are to discharge the patient, with follow-up on an as-needed basis. For the purpose of long-term compression,the patient has received CircAid Velcro compression garments, and has been instructed today in the means of application. She has been instructed to don these CircAid garments on a daily basis, and they are to remain in place until bedtime. She will follow-up on an as needed basis. The patient has been advised to discuss weight loss options with her primary care physician. These options include, but are not limited to, ongoing dietary monitoring, exercise regimens, pharmacological means, bariatric surgery, etc. Total time: 24 minutes 12/29/24 1157 <Electronically signed by Binu Troncoso MD> Cosigner Signature (if applicable): CC: ~ Signed [facility] Work Phone: [phone] 873-431610-09-2025 History and physical note [facility] [address] [place] [address] H&P Exam - Wound Care 12/29/24 1144 MR#: [id number] Acct: [id number] Name: MEGHA CIFUENTES Rep #:[id number] : 1960 64 From: Binu Morgan PCP: Dr. Ty Narayanan MD Status:[facility] RCR Location: History of Present Illness Date of Service: 12/27/24 Chief Complaint: Bilateral lower extremity swelling and edema; severe venous stasis dermatitis History of Wound: This is a 64-year-old morbidly obese female who presented withsevere swelling andedema in both lower extremities, which had been chronic in nature. 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 She presented with severe swelling, edema, and lymphedema in both lower extremities. Her lower extremities also demonstrated severe, exudative venous stasis dermatitis, hyperpigmentation, and lipodermatosclerosis. The patient claimed to sleep on a flat mattress at night. She is not active. She denied a history of thrombophlebitis. The patient denied a history of diabetes mellitus,myocardial infarction, congestive heart failure, cerebrovascular accident, hypertension, pulmonary disease, renal disease, hyperlipidemia, and thyroid disease. The patient was seen and evaluated in the [facility] Emergency Department on November 09, 2024, at which time a prescription for oral Keflex was issued for lower extremity cellulitis. [facility] Medical History Lipodermatosclerosis Dependent edema Venous stasis dermatitis of both lower extremities Leg edema, left Leg edema, right Left leg swelling Right leg swelling Lymphedema Chronic venous insufficiency Wears dentures Alcohol use Arthritis Restless legs [...] Smoking Status: Never smoker alcohol intake: never Physical Exam Const alert, oriented x3, no apparent distress, no limitations and well nourished Constitutional Narrative: The patient is morbidly obese. Her BMI is 54.2. General Appearance: cooperative, comfortable and well developed Orientation / Consciousness: awake, oriented to person, oriented to place and oriented to time Exam Limitations: no limitations Nutritional Appearance: obese morbidly obese HEENT normocephalic and head/scalp atraumatic Head and Scalp: normal to inspection, normocephalic and atraumatic Face and Sinus: normal facial exam Nose: external nose normal External Ear: external ears normal Eyes EOMs intact bilaterally General Eye: normal appearance of both eyes Neck full ROM Resp normal respiratory effort, normal air movement, no retractions and no use of accessory muscles Effort and Inspection: able to speak in complete sentences Extremity no calf tenderness General Extremity: Negative for clubbing or cyanosis Skin Wound Narrative: Moderate swelling, edema, and lymphedema persist in the patient's lower extremities bilaterally. There has been mild improvement. The excoriations in the right lower extremity are healed and epithelialized. There are no remainingwounds or ulcerations. The chronic changes related to the patient's chr onic venous disease remain, including hyperpigmentation and lipodermatosclerosis in the gaiter areas bilaterally. Neuro oriented x3, CN's II-XII intact bilaterally, moves all extremities, no focal motor deficits and no sensory deficits noted Sensorium / Orientation: awake, alert, oriented to person, oriented to place andoriented to time Speech: speech normal Psych Appearance: grossly normal and appropriate Attitude: calm Activity / Motor Behavior: appropriate eye contact Speech: normal speech Mood & Affect: euthymic mood Attention / Concentration: attention grossly intact Debridement Note Debridement Note No debridement was completed: No debridement was completed today Post-Debridement Measurements and Additional Note: Post-Debridement Measurements/Treatment - Nurse 1 - General Ulcer Assessment Start: 12/23/24 10:11 Freq: Status: Active Protocol: SHIVA.KAMI Activity Type Activity Date Activity User E-sign Co-sign Detail Recorded Client Recorded Date Recorded By Document 12/23/24 10:11 DS [id number] 12/23/24 10:14 DS Document 12/27/24 10:34 JF [id number] 12/27/24 10:44 JF Edit Result 12/27/24 10:34 JF (1) [id number] 12/27/24 10:46 JF (1) Blood Pressure (90/60-120/80) => 122/70 H Blood Pressure Mean => 87 Source => Monitor Position => Semi-Fowlers Blood Pressure Location => Left Arm 12/23/24 12/27/24 10:11 10:34 - Today's Visit Information Type of service Nurse-only Follow-up Visit Visit (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 ) Arrival Mode Ambulatory Ambulatory Patient Identification Verified (Name & No ) Vital Signs Temperature (97.8 F-99.1 F) 96.3 F L 96.3 F L Temperature Source Temporal Temporal Pulse Rate (60-100) 82 86 Pulse Location Monitor Monitor Respiratory Rate (12-18) 18 16 Respiratory rate source Observation Observation Oxygen Delivery Method Room Air Blood Pressure (90/60-120/80) 142/70 H 122/70 H Blood Pressure Mean 94 87 Source Monitor Monitor Position Sitting Semi-Fowlers Blood Pressure Location Left Forearm Left Arm History Since Last Visit- (Skip if this is Patient's initial visit) Have you changed medications since your Yes last visit? Any new allergies or adverse reactions No Had a fall/change in ADL's that may No increase risk of falls Signs or symptoms of abuse and/or No neglect since last visit Have you been in the hospital since your No last visit? Has dressing in place as prescribed Yes Has compression in place as prescribed Yes Has offloadiing in place as prescribed N/A Experienced any changes in pain level or No management Left Footwear Regular Shoe Right Footwear Regular Shoe Pain Scale: 0-10 Numeric Is Patient Pain Free? Yes Yes - Nurse 1 - General Ulcer Measurement Start: 12/23/24 10:11 Freq: Status: Active Protocol: Activity Type Activity Date Activity User E-sign Co-sign Detail Recorded Client Recorded Date Recorded By Document 12/27/24 10:34 DIVYA [id number] 12/27/24 10:44 DIVYA 12/27/24 10:34 Wound Center Nurse 1 RIGHT POSTERIOR LE -Combined with other wound No -Current Size (cm) - Length 0.1 -Current Size (cm) - Width 0.1 -Current Size (cm) - Depth 0.1 -Total Square Cm 0.01 -Photo Taken Yes -Epithelialization Large 67-100% -Tunneling No -Undermining/Tunneling No -Circular Undermining No -Exudate Amt Small -Exudate Type Serosanguineous -Wound Margin Flat & Intact -Granulation Amt None Present (0 %) -Slough/Fibrin No -Structure Exposed N/A -Texture (Lenora-wound Skin Appearance) Assessed -Moisture (Lenora-wound Skin Appearance) No Abnormality, Dry/Scaly -Color (Lenora-wound Skin Appearance) Assessed -Temperature (Lenora-wound Skin No Abnormality Appearance) (Pt Warm) -Tenderness on Palpation (Lenora-wound No Skin Appearance) -Ulcer Cleansing Soap and Water -Foul Odor after Cleansing No Lower Limb Edema Present Yes Right Calf (cm) 70 Right Ankle (cm) 37.0 Left Calf (cm) 65.0 Left Ankle (cm) 36.2 WC - Nurse 2 - General Ulcer CM Notes Start: 12/23/24 10:11 Freq: Status: Active Protocol: Activity Type Activity Date Activity User E-sign Co-sign Detail Recorded Client Recorded Date Recorded By Document 12/27/24 10:53 DS [id number] 12/27/24 10:53 DS 12/27/24 10:53 Wound Center Nurse 2 RIGHT POSTERIOR LE -Time 10:53 -Correct Patient Yes -Correct Side, Site, Position Yes -Procedure Performed No -Wound/Ulcer Outcome Healed- Epithelialized Pain Scale: 0-10 Numeric Is Patient Pain Free? Yes WC - Nurse 3 - General Ulcer D/C NN Start: 12/23/24 10:11 Freq: Status: Active Protocol: Activity Type Activity Date Activity User E-sign Co-sign Detail Recorded Client Recorded Date Recorded By Document 12/23/24 10:36 DS [id number] 12/23/24 10:52 DS Document 12/27/24 11:22 RB [id number] 12/27/24 11:23 RB 12/23/24 12/27/24 10:36 11:22 Wound Care Center Nurse 3 RIGHT POSTERIOR LE -Primary Dressing Applied Optilok 5x5 1/2 -Optilok 5x5 1/2 1 -Wound Comment(s) bl le washed lotion applied to lle LLE -Tubular Bandage Double Layer Single Layer -Size of Tubigrip Used Size F Size F -Size F ($) 2 1 -Stockings Yes: pt own circiaids RLE -Multi-Layered Wrap Application Unna Boot - Right -Tubular Bandage Single Layer -Size of Tubigrip Used Size F -Size F ($) 1 -Stockings Yes: pt own circaids -Unna- Right (Qty applied) 1 Treatment Response Procedure Tolerated Well Pain Scale: 0-10 Numeric Is Patient Pain Free? Yes Yes WC - Visit Discharge Discharge Condition Stable Stable Ambulatory Status Ambulatory Ambulatory Transportation Private Auto Private Auto Medication Reconcilliation completed & No provided to patient/care provider Clinical Summary of Care Provided Yes Notes: pt instructed on application of circaids bilat Charges/Coding Visit Charges Office Visits / Consults: 46124 OV L3 Est 20min Assessment/Plan Assessment/Plan (1) Venous stasis dermatitis of both lower extremities: CODE(S): I87.2 - Venous insufficiency (chronic) (peripheral) (2) Chronic venous insufficiency: CODE(S): I87.2 - Venous insufficiency (chronic) (peripheral) (3) Lymphedema: CODE(S): I89.0 - Lymphedema, not elsewhere classified (4) Dependent edema: CODE(S): R60.9 - Edema, unspecified (5) Leg edema, right: CODE(S): R60.0 - Localized edema (6) Leg edema, left: CODE(S): R60.0 - Localized edema (7) Right leg swelling: CODE(S): M79.89 - Other specified soft tissue disorders (8) Left leg swelling: CODE(S): M79.89 - Other specified soft tissue disorders (9) Lipodermatosclerosis: CODE(S): M79.3 - Panniculitis, unspecified (10) Morbid obesity: CODE(S): E66.01 - Morbid (severe) obesity due to excess calories (11) DDD (degenerative disc disease), lumbosacral: CODE(S): M51.37 - Other intervertebral disc degeneration, lumbosacral region (12) History of cellulitis: CODE(S): Z87.2 - Personal history of diseases of the skin and subcutaneoustissue (13) Osteoarthritis: (14) Status post bilateral knee replacements: CODE(S): Z96.653 - Presence of artificial knee joint, bilateral (15) Status post bilateral hip replacements: CODE(S): Z96.643 - Presence of artificial hip joint, bilateral PLAN: Plan This is a 64-year-old morbidly obese female who presented with severe swelling, edema, and lymphedema in her lower extremities, as well as severe venous stasis skin changes in her lower extremities. The right lower extremity was more severely affected. Manifestations included venous stasis dermatitis, hyperpigmentation, and lipodermatosclerosis. The patient is not active. 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 The swelling and edema in the patient's lower extremities is chronic in nature, and had recently become worse. A lengthy discussion has been undertaken with the patient regarding the conservative measures appropriate to the management of her lower extremity swelling and edema. Leg elevation has been encouraged. Elevation is to be to heart level, or higher, as much as possible. She has been encouraged to continue sleeping mariely flat mattress at night. Her legs are to be elevated during daytime hours as well, as much as possible. Prolonged idle sitting has been discouraged. Activity/ambulation has been encouraged. Weight loss has also been discussed, and the patient underwent a dietary consultation at a recent clinic visit. Unfortunately, despite repeated admonitions, the patient has been noncompliant with leg elevation, avoidance of prolonged idle sitting, etc. In fact, she st ated I have not had time. She admits that she continues to sleep in a chairwith her legs in a dependent position. Recent laboratory results have been reviewed. Vascular studies have been completed recently, the results of which were as follows: There is no evidence of arterial occlusive disease in the lowerextremities bilaterally. The patient's venous ultrasound study revealed no evidence of deep vein thrombosis on either side. The right great saphenous veinwas noted to be incompetent below the knee. The right small saphenous vein was noted to be incompetent. The accessory saphenous vein inthe right proximal calf was also noted to be incompetent. Given the patient's morbid obesity, she is probably not an ideal candidate for a venous ablation procedure at this time. However, this may abraham consideration for the future. Because all lower extremity wounds and ulcerations are healed, we are to discharge the patient, with follow-up on an as-needed basis. For the purpose of long-term compression,the patient has received CircAid Velcro compression garments, and has been instructed today in the means of application. She has been instructed to don these CircAid garments on a daily basis,and they are to remain in place until bedtime. She will follow-up on an as needed basis. The patient has been advised to discuss weight loss options with her primary care physician. These options include, but are not limited to, ongoing dietary monitoring, exercise regimens, pharmacological means, bariatric surgery, etc. Total time: 24 minutes 12/29/24 1157 Cosigner Signature (if applicable): CC: ~ Signed [facility]09-19-2025 History and physical note Author Binu Troncoso [facility] Note Date/Time December 09, 2024 12:35pm [facility] [address] [place] [address] H&P Exam - Wound Care 12/09/24 1214 MR#: [id number] Acct: [id number] Name: MEGHA CIFUENTES Rep #:[id number] : 1960 63 From: Binu Morgan PCP: Dr. Ty Narayanan MD Status:RE G RCR Location: History of Present Illness Date of Service: 12/06/24 Chief Complaint: Bilateral lower extremity swelling and edema; severe venous stasis dermatitis History of Wound: This is a 63-year-old morbidly obese female who presented withsevere swelling and edema in both lower extremities, which had been chronic in nature. 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 She presented with severe swelling, edema, and lymphedema in both lower extremities. Her lower extremities also demonstrated severe, exudative venous stasis dermatitis, hyperpigmentation, and lipodermatosclerosis. The patient claimed to sleep on a flat mattress at night. She is not active. She denied a history of thrombophlebitis. The patient denied a history of diabetes mellitus,myocardial infarction, congestive heart failure, cerebrovascular accident, hypertension, pulmonary disease, renal disease, hyperlipidemia, and thyroid disease. The patient was seen and evaluated in the [facility] Emergency Department on November 09, 2024, at which time a prescription for oral Keflex was issued for lower extremity cellulitis. [facility] Medical History Lipodermatosclerosis Dependent edema Venous stasis dermatitis of both lower extremities Leg edema, left Leg edema, right Left leg swelling Right leg swelling Lymphedema Chronic venous insufficiency Wears dentures Alcohol use Arthritis Restless legs [...] never Vital Signs Vital Signs Vital Signs: Weight Weight: 377 lb 6.902 oz Physical Exam Const alert, oriented x3, no apparent distress, no limitations and well nourished Constitutional Narrative: The patient is morbidly obese. Her BMI is 54.2. General Appearance: cooperative, comfortable and well developed Orientation / Consciousness: awake, oriented to person, oriented to place and oriented to time Exam Limitations: no limitations Nutritional Appearance: obese morbidly obese HEENT normocephalic and head/scalp atraumatic Head and Scalp: normal to inspection, normocephalic and atraumatic Face and Sinus: normal facial exam Nose: external nose normal External Ear: external ears normal Eyes EOMs intact bilaterally General Eye: normal appearance of both eyes Neck full ROM Resp normal respiratory effort, normal air movement, no retractions and no use of accessory muscles Effort and Inspection: able to speak in complete sentences Extremity no calf tenderness General Extremity: Negative for clubbing or cyanosis Skin Wound Narrative: Severe swelling, edema, and lymphedema persist in the patient's lower extremities bilaterally. There has been no significant improvement. There is asuperficial excoriation with denudation of epithelial layers on the right posterior calf. The base of the excoriation appears pink and healthy in appearance. Dimensions are documented elsewhere. This area is surrounded by mild hyperpigmentation and lipodermatosclerosis, which is more pronounced in theright gaiter area than that on the left. There is no overt sign of infection orcellulitis. No drainage is noted. Neuro oriented x3, CN's II-XII intact bilaterally, moves all extremities, no focal motor deficits and no sensory deficits noted Sensorium / Orientation: awake, alert, oriented to person, oriented to place andoriented to time Speech: speech normal Psych Appearance: grossly normal and appropriate Attitude: calm Activity / Motor Behavior: appropriate eye contact Speech: normal speech Mood & Affect: euthymic mood Attention / Concentration: attention grossly intact Debridement Note Debridement Note No debridement was completed: No debridement was completed today Post-Debridement Measurements and Additional Note: Post-Debridement Measurements/Treatment - Nurse 1 - General Ulcer Assessment Start: 11/22/24 09:35 Freq: Status: Active Protocol: .LOWEXT Activity Type Activity Date Activity User E-sign Co-sign Detail Recorded Client Recorded Date Recorded By Document 11/22/24 09:54 ML [id number] 11/22/24 10:00 ML Document 11/25/24 10:55 RB [id number] 11/25/24 10:57 RB Document 11/29/24 12:08 KW [id number] 11/29/24 12:13 KW Document 12/01/24 14:51 KW [id number] 12/01/24 15:07 KW Document 12/06/24 10:00 BMF [id number] 12/06/24 10:14 BMF Document 12/08/24 12:07 DL [id number] 12/08/24 12:11 DL 11/22/24 11/25/24 11/29/24 09:54 10:55 12:08 - Today's Visit Information Type of service Follow-up Visit Nurse-only Follow-up Visit (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 Visit (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 ) ) Arrival Mode Ambulatory Ambulatory Ambulatory Transfer Assistance None None Transfer Assist (Other) Patient Identification Verified (Name & Yes Yes Yes ) Patient Requires Transmission-Based No No Precautions Vital Signs Temperature (97.8 F-99.1 F) 97.9 F 96.5 F L 96.9 F L Temperature Source Temporal Temporal Temporal Pulse Rate (60-100) 100 94 91 Pulse Location Monitor Monitor Monitor Respiratory Rate (12-18) 15 18 18 Respiratory rate source Observation Observation Observation Oxygen Delivery Method Room Air Blood Pressure (90/60-120/80) 153/93 H 151/79 H 174/108 H Blood Pressure Mean 113 103 130 Source Monitor Monitor Monitor Position Sitting Semi-Fowlers Semi-Fowlers Blood Pressure Location Left Arm Left Arm Left Arm History Since Last Visit- (Skip if this is Patient's initial visit) Have you changed medications since your No No No last visit? Any new allergies or adverse reactions No No No Had a fall/change in ADL's that may No No No increase risk of falls Signs or symptoms of abuse and/or No No No neglect since last visit Have you been in the hospital since your No No No last visit? Has dressing in place as prescribed Yes Yes Yes Has compression in place as prescribed Yes Yes Yes Has offloadiing in place as prescribed No N/A N/A Experienced any changes in pain level or No No No management Left Footwear Regular Shoe Regular Shoe Right Footwear Regular Shoe Regular Shoe Pain Scale: 0-10 Numeric Is Patient Pain Free? Yes Yes Yes 12/01/24 12/06/24 12/08/24 14:51 10:00 12:07 - Today's Visit Information Type of service Nurse-only Follow-up Visit Nurse-only Visit (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 Visit ) Arrival Mode Ambulatory Ambulatory Ambulatory Transfer Assistance None Manual,None Transfer Assist (Other) x1 Patient Identification Verified (Name & Yes Yes Yes ) Patient Requires Transmission-Based No No Precautions Vital Signs Temperature (97.8 F-99.1 F) 96.7 F L 96.7 F L 97.4 F L Temperature Source Temporal Temporal Temporal Pulse Rate (60-100) 87 90 Pulse Location Monitor Monitor Respiratory Rate (12-18) 18 18 18 Respiratory rate source Observation Observation Observation Oxygen Delivery Method Room Air Room Air Blood Pressure (90/60-120/80) 156/82 H 150/75 H 154/94 H Blood Pressure Mean 106 100 114 Source Monitor Monitor Monitor Position Semi-Fowlers Sitting Blood Pressure Location Right Forearm Left Forearm History Since Last Visit- (Skip if this is Patient's initial visit) Have you changed medications since your No No last visit? Any new allergies or adverse reactions No No Had a fall/change in ADL's that may No No increase risk of falls Signs or symptoms of abuse and/or No No neglect since last visit Have you been in the hospital since your No No last visit? Has dressing in place as prescribed Yes Yes Has compression in place as prescribed Yes Yes Has offloadiing in place as prescribed N/A N/A Experienced any changes in pain level or No No management Left Footwear Regular Shoe Diabetic Shoe Right Footwear Regular Shoe Diabetic Shoe Pain Scale: 0-10 Numeric Is Patient Pain Free? Yes Yes Yes WC - Nurse 1 - General Ulcer Measurement Start: 11/22/24 09:35 Freq: Status: Active Protocol: Activity Type Activity Date Activity User E-sign Co-sign Detail Recorded Client Recorded Date Recorded By Document 11/22/24 09:54 ML [id number] 11/22/24 10:00 ML Document 11/25/24 10:55 RB [id number] 11/25/24 10:57 RB Document 11/29/24 12:08 KW [id number] 11/29/24 12:13 KW Document 12/06/24 10:00 BMF [id number] 12/06/24 10:14 BMF Document 12/08/24 12:07 DL [id number] 12/08/24 12:11 DL 11/22/24 11/25/24 11/29/24 09:54 10:55 12:08 Wound Center Nurse 1 RIGHT POSTERIOR LE -Combined with other wound -Current Size (cm) - Length -Current Size (cm) - Width -Current Size (cm) - Depth -Total Square Cm -Date of Last Picture (Recall this field) -Photo Taken -Tunneling -Undermining/Tunneling -Circular Undermining -Exudate Amt -Exudate Type -Wound Margin -Granulation Amt -Granulation Quality -Slough/Fibrin -Necrosis Amt -Necrotic Tissue Type -Structure Exposed -Texture (Lenora-wound Skin Appearance) Assessed -Moisture (Lenora-wound Skin Appearance) Assessed -Color (Lenora-wound Skin Appearance) Assessed -Temperature (Lenora-wound Skin No Abnormality Appearance) (Pt Warm) -Tenderness on Palpation (Lenora-wound No Skin Appearance) -Ulcer Cleansing Soap and Water -Foul Odor after Cleansing No Lower Limb Edema Present Yes Right Calf (cm) 69 69.5 68.5 Right Ankle (cm) 41.5 35.2 38.6 Left Calf (cm) 64.4 Left Ankle (cm) 35.4 12/06/24 12/08/24 10:00 12:07 Wound Center Nurse 1 RIGHT POSTERIOR LE -Combined with other wound No -Current Size (cm) - Length 11 0.1 -Current Size (cm) - Width 10 0.1 -Current Size (cm) - Depth 0.1 0.1 -Total Square Cm 110 0.01 -Date of Last Picture (Recall this 12/06/24 field) -Photo Taken Yes -Tunneling No -Undermining/Tunneling No -Circular Undermining No -Exudate Amt Large Medium -Exudate Type Serosanguineous Serosanguineous -Wound Margin Flat & Intact Indistinct, Non -Visible -Granulation Amt Medium (34-66%) Large (67-100%) -Granulation Quality Red Pale,[place] -Slough/Fibrin Yes -Necrosis Amt Medium (34-66%) None Present (0 %) -Necrotic Tissue Type Adherent Slough -Structure Exposed N/A -Texture (Lenora-wound Skin Appearance) Assessed, No Abnormality Scarring -Moisture (Lenora-wound Skin Appearance) Assessed Weeping -Color (Lenora-wound Skin Appearance) Assessed No Abnormality -Temperature (Lenora-wound Skin No Abnormality No Abnormality Appearance) (Pt Warm) (Pt Warm) -Tenderness on Palpation (Lenora-wound No No Skin Appearance) -Ulcer Cleansing Soap and Water Soap and Water -Foul Odor after Cleansing No No Lower Limb Edema Present Yes Right Calf (cm) 68.5 Right Ankle (cm) 34.1 Left Calf (cm) Left Ankle (cm) WC - Nurse 2 - General Ulcer CM Notes Start: 11/22/24 09:35 Freq: Status: Active Protocol: Activity Type Activity Date Activity User E-sign Co-sign Detail Recorded Client Recorded Date Recorded By Document 11/22/24 10:19 DIVYA [id number] 11/22/24 10:30 JF Document 11/29/24 12:20 DS [id number] 11/29/24 12:21 DS Document 12/06/24 10:48 DS [id number] 12/06/24 10:51 DS 11/22/24 11/29/24 12/06/24 10:19 12:20 10:48 Wound Center Nurse 2 RIGHT POSTERIOR LE -Time 12:20 10:49 -Correct Patient Yes Yes -Correct Side, Site, Position Yes Yes -Procedure Performed No No -Wound/Ulcer Outcome Not Healed Not Healed Pain Scale: 0-10 Numeric Is Patient Pain Free? Yes Yes Yes WC - Nurse 3 - General Ulcer D/C NN Start: 11/22/24 09:35 Freq: Status: Active Protocol: Activity Type Activity Date Activity User E-sign Co-sign Detail Recorded Client Recorded Date Recorded By Document 11/22/24 10:40 ML [id number] 11/22/24 10:43 ML Document 11/25/24 10:55 RB [id number] 11/25/24 10:57 RB Document 11/29/24 12:30 KW [id number] 11/29/24 12:31 KW Document 12/01/24 15:07 KW [id number] 12/01/24 15:07 KW Document 12/06/24 10:44 BMF [id number] 12/06/24 10:45 BMF Document 12/06/24 11:12 BMF [id number] 12/06/24 11:15 BMF Document 12/08/24 12:07 DL [id number] 12/08/24 12:11 DL 11/22/24 11/25/24 11/29/24 10:40 10:55 12:30 Wound Care Center Nurse 3 RIGHT POSTERIOR LE -Ulcer Cleansing Rinsed/ Wound Cleanser Irrigated with Saline -Foul Odor after Cleansing No -Primary Dressing Applied Optilok 8x12 Optilok 6.5x10 Optilok 5x5 1/2 -Other Dressing -Primary Dressing Covered/Secured with -Other Covering -Aquacel AG 4x4 -Optilok 5x5 1/2 1 -Optilok 6.5x10 1 -Optilok 8x12 1 RLE -Multi-Layered Wrap Application Unna Boot - Unna Boot - Unna Boot - Right Right Right -Tubular Bandage -Size of Tubigrip Used -Size D ($) -Other -Unna- Right (Qty applied) 1 1 1 LLE -Tubular Bandage Single Layer Single Layer Double Layer -Size of Tubigrip Used Size F Size F Size F -Size F ($) 1 1 2 Treatment Response Procedure Tolerated Well Pain Scale: 0-10 Numeric Is Patient Pain Free? Yes Yes Yes WC - Visit Discharge Discharge Condition Stable Stable Ambulatory Status Ambulatory Ambulatory Transportation Private Auto Private Auto Medication Reconcilliation completed & No No provided to patient/care provider Clinical Summary of Care Provided Yes Yes 12/01/24 12/06/24 12/06/24 15:07 10:44 11:12 Wound Care Center Nurse 3 RIGHT POSTERIOR LE -Ulcer Cleansing Rinsed/ Rinsed/ Irrigated with Irrigated with Saline Saline -Foul Odor after Cleansing No No -Primary Dressing Applied Optilok 6.5x10 Aquacel AG 4x4 Optilok 8x12 -Other Dressing ABD unna -Primary Dressing Covered/Secured with Dry Gauze & Roll Gauze, Secured with Tape -Other Covering DRSG PER KW WILDLIFE BIOSTATION RESEARCH ECOLOGIST abd to pad ankle -Aquacel AG 4x4 2 -Optilok 5x5 1/2 -Optilok 6.5x10 1 -Optilok 8x12 2 RLE -Multi-Layered Wrap Application Unna Boot - Unna Boot - Right Right -Tubular Bandage Double Layer -Size of Tubigrip Used Size D -Size D ($) 2 -Other APPLIED PER KW WILDLIFE BIOSTATION RESEARCH ECOLOGIST -Unna- Right (Qty applied) 1 1 LLE -Tubular Bandage Double Layer -Size of Tubigrip Used Size F -Size F ($) 2 Treatment Response Procedure Procedure Tolerated Well Tolerated Well Pain Scale: 0-10 Numeric Is Patient Pain Free? Yes Yes Yes WC - Visit Discharge Discharge Condition Stable Stable Stable Ambulatory Status Ambulatory Ambulatory Ambulatory Transportation Private Auto Private Auto Private Auto Medication Reconcilliation completed & No provided to patient/care provider Clinical Summary of Care Provided Yes 12/08/24 12:07 Wound Care Center Nurse 3 RIGHT POSTERIOR LE -Ulcer Cleansing Soap and Water -Foul Odor after Cleansing No -Primary Dressing Applied Optilok 5x5 1/2 -Other Dressing unna -Primary Dressing Covered/Secured with -Other Covering -Aquacel AG 4x4 -Optilok 5x5 1/2 1 -Optilok 6.5x10 -Optilok 8x12 RLE -Multi-Layered Wrap Application Unna Boot - Right -Tubular Bandage -Size of Tubigrip Used -Size D ($) -Other -Unna- Right (Qty applied) 1 LLE -Tubular Bandage -Size of Tubigrip Used -Size F ($) Treatment Response Procedure Tolerated Well Pain Scale: 0-10 Numeric Is Patient Pain Free? Yes WC - Visit Discharge Discharge Condition Stable Ambulatory Status Ambulatory Transportation Private Auto Medication Reconcilliation completed & provided to patient/care provider Clinical Summary of Care Provided Charges/Coding Visit Charges Office Visits / Consults: [id number] OV L3 Est 20min Assessment/Plan Assessment/Plan (1) Venous stasis dermatitis of both lower extremities: CODE(S): I87.2 - Venous insufficiency (chronic) (peripheral) (2) Chronic venous insufficiency: CODE(S): I87.2 - Venous insufficiency (chronic) (peripheral) (3) Lymphedema: CODE(S): I89.0 - Lymphedema, not elsewhere classified (4) Dependent edema: CODE(S): R60.9 - Edema, unspecified (5) Leg edema, right: CODE(S): R60.0 - Localized edema (6) Leg edema, left: CODE(S): R60.0 - Localized edema (7) Right leg swelling: CODE(S): M79.89 - Other specified soft tissue disorders (8) Left leg swelling: CODE(S): M79.89 - Other specified soft tissue disorders (9) Lipodermatosclerosis: CODE(S): M79.3 - Panniculitis, unspecified (10) Morbid obesity: CODE(S): E66.01 - Morbid (severe) obesity due to excess calories (11) DDD (degenerative disc disease), lumbosacral: CODE(S): M51.37 - Other intervertebral disc degeneration, lumbosacral region (12) History of cellulitis: CODE(S): Z87.2 - Personal history of diseases of the skin and subcutaneoustissue (13) Osteoarthritis: (14) Status post bilateral knee replacements: CODE(S): Z96.653 - Presence of artificial knee joint, bilateral (15) Status post bilateral hip replacements: CODE(S): Z96.643 - Presence of artificial hip joint, bilateral PLAN: Plan This is a 63-year-old morbidly obese female who presented with severe swelling, edema, lymphedema in her lower extremities, as well as severe venous stasis skinchanges in her lower extremities. The right lower extremity is more severely affected. Manifestations include venous stasis dermatitis, hyperpigmentation, and lipodermatosclerosis. Cellulitis is not currently suspected. The patient is not active. 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 The swelling and edema in the patient's lower extremities is chronic in nature, and had recently becomeworse. A lengthy discussion has been undertaken with the patient regarding the conservative measures appropriate to the management of her lower extremity swelling and edema. Leg elevation has been encouraged. Elevation is to be to heart level, or higher, as much as possible. She has been encouraged to continue sleeping on a flat mattress at night. Her legs are to be elevated during daytime hours as well, as much as possible. Prolonged idle sitting has been discouraged. Activity/ambulation has been encouraged. Weight loss has also been discussed, and the patient underwent a dietary consultation at a recent clinic visit. Recent laboratory results have been reviewed. Vascular studies have been completed recently, results of which are as follows: There is no evidence of arterial occlusive disease in the lower extremities bilaterally. The patient's venous ultrasound study revealed no evidence of deep vein thrombosis on either side. The right great saphenous vein was noted to be incompetent below the knee. The right small saphenous vein was noted to be incompetent. The accessory saphenous vein in the right proximal calf was also noted to be incompetent. We are to continue compression to the lower extremities bilaterally. An Unna compression wrap is to be applied to the rightlower extremity, and will be changed twice weekly. A double Tubigrip compression sleeve will be applied to the left lower extremity, and will be donned by the patient on a daily basis. The patient's lower extremity dimensions have been documented in the clinic today, and have been sent to her DME provider in an effort to procure CircAid Velcro compression garments for thepatient's long-term use. There is question as to the patient's compliance with recommended measures such as leg elevation, avoidance of idle standing and sitting, etc. She relates travel recently by automobile that have entailed longperiods of prolonged, idle sitting. In addition, the patient has been advised to discuss weight loss options with her primary care physician. These options include, but are not limited to, ongoing dietary monitoring, exercise regimens, pharmacological means, bariatric surgery, etc. The patient is to return in 1 week for reevaluation. Total time: 25 minutes 12/09/24 1235 <Electronically signed by Binu Troncoso MD> Cosigner Signature (if applicable): CC: ~ Signed [facility] Work Phone: [phone] History and physical note [facility] [address] [place] [address] H&P Exam - Wound Care 12/09/24 1214 MR#: [id number] Acct: [id number] Name: MEGHA CIFUENTES Rep #:[id number] : 1960 63 From: Binu Morgan PCP: Dr. Ty Narayanan MD Status:RE G RCR Location: History of Present Illness Date of Service: 12/06/24 Chief Complaint: Bilateral lower extremity swelling and edema; severe venous stasis dermatitis History of Wound: This is a 63-year-old morbidly obese female who presented withsevere swelling andedema in both lower extremities, which had been chronic in nature. 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 She presented with severe swelling, edema, and lymphedema in both lower extremities. Her lower extremities also demonstrated severe, exudative venous stasis dermatitis, hyperpigmentation, and lipodermatosclerosis. The patient claimed to sleep on a flat mattress at night. She is not active. She denied a history of thrombophlebitis. The patient denied a history of diabetes mellitus,myocardial infarction, congestive heart failure, cerebrovascular accident, hypertension, pulmonary disease, renal disease, hyperlipidemia, and thyroid disease. The patient was seen and evaluated in the [facility] Emergency Department on November 09, 2024, at which time a prescription for oral Keflex was issued for lower extremity cellulitis. [facility] Medical History Lipodermatosclerosis Dependent edema Venous stasis dermatitis of both lower extremities Leg edema, left Leg edema, right Left leg swelling Right leg swelling Lymphedema Chronic venous insufficiency Wears dentures Alcohol use Arthritis Restless legs [...] never Vital Signs Vital Signs Vital Signs: Weight Weight: 377 lb 6.902 oz Physical Exam Const alert, oriented x3, no apparent distress, no limitations and well nourished Constitutional Narrative: The patient is morbidly obese. Her BMI is 54.2. General Appearance: cooperative, comfortable and well developed Orientation / Consciousness: awake, oriented to person, oriented to place and oriented to time Exam Limitations: no limitations Nutritional Appearance: obese morbidly obese HEENT normocephalic and head/scalp atraumatic Head and Scalp: normal to inspection, normocephalic and atraumatic Face and Sinus: normal facial exam Nose: external nose normal External Ear: external ears normal Eyes EOMs intact bilaterally General Eye: normal appearance of both eyes Neck full ROM Resp normal respiratory effort, normal air movement, no retractions and no use of accessory muscles Effort and Inspection: able to speak in complete sentences Extremity no calf tenderness General Extremity: Negative for clubbing or cyanosis Skin Wound Narrative: Severe swelling, edema, and lymphedema persist in the patient's lower extremities bilaterally. There has been no significant improvement. There is asuperficial excoriation with denudation of epithelial layers on the right posterior calf. The base of the excoriation appears pink and healthy in appear ance. Dimensions are documented elsewhere. This area is surrounded by mild hyperpigmentation and lipodermatosclerosis, which is more pronounced in theright gaiter area than that on the left. There isno overt sign of infection orcellulitis. No drainage is noted. Neuro oriented x3, CN's II-XII intact bilaterally, moves all extremities, no focal motor deficits and no sensory deficits noted Sensorium / Orientation: awake, alert, oriented to person, oriented to place andoriented to time Speech: speech normal Psych Appearance: grossly normal and appropriate Attitude: calm Activity / Motor Behavior: appropriate eye contact Speech: normal speech Mood & Affect: euthymic mood Attention / Concentration: attention grossly intact Debridement Note Debridement Note No debridement was completed: No debridement was completed today Post-Debridement Measurements and Additional Note: Post-Debridement Measurements/Treatment WC - Nurse 1 - General Ulcer Assessment Start: 11/22/24 09:35 Freq: Status: Active Protocol: SHIVA.KAMI Activity Type Activity Date Activity User E-sign Co-sign Detail Recorded Client Recorded Date Recorded By Document 11/22/24 09:54 ML [id number] 11/22/24 10:00 ML Document 11/25/24 10:55 RB [id number] 11/25/24 10:57 RB Document 11/29/24 12:08 KW [id number] 11/29/24 12:13 KW Document 12/01/24 14:51 KW [id number] 12/01/24 15:07 KW Document 12/06/24 10:00 BMF [id number] 12/06/24 10:14 BMF Document 12/08/24 12:07 DL [id number] 12/08/24 12:11 DL 11/22/24 11/25/2425 09:54 10:55 12:08 - Today's Visit Information Type of service Follow-up Visit Nurse-only Follow-up Visit (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 Visit (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 ) ) Arrival Mode Ambulatory Ambulatory Ambulatory Transfer Assistance None None Transfer Assist (Other) Patient Identification Verified (Name & Yes Yes Yes ) Patient Requires Transmission-Based No No Precautions Vital Signs Temperature (97.8 F-99.1 F) 97.9 F 96.5 F L 96.9 F L Temperature Source Temporal Temporal Temporal Pulse Rate (60-100) 100 94 91 Pulse Location Monitor Monitor Monitor Respiratory Rate (12-18) 15 18 18 Respiratory rate source Observation Observation Observation Oxygen Delivery Method Room Air Blood Pressure (90/60-120/80) 153/93 H 151/79 H 174/108 H Blood Pressure Mean 113 103 130 Source Monitor Monitor Monitor Position Sitting Semi-Fowlers Semi-Fowlers Blood Pressure Location Left Arm Left Arm Left Arm History Since Last Visit- (Skip if this is Patient's initial visit) Have you changed medications since your No No No last visit? Any new allergies or adverse reactions No No No Had a fall/change in ADL's that may No No No increase risk of falls Signs or symptoms of abuse and/or No No No neglect since last visit Have you been in the hospital since your No No No last visit? Has dressing in place as prescribed Yes Yes Yes Has compression in place as prescribed Yes Yes Yes Has offloadiing in place as prescribed No N/A N/A Experienced any changes in pain level or No No No management Left Footwear Regular Shoe Regular Shoe Right Footwear Regular Shoe Regular Shoe Pain Scale: 0-10 Numeric Is Patient Pain Free? Yes Yes Yes 12/01/24 12/06/24 12/08/24 14:51 10:00 12:07 - Today's Visit Information Type of service Nurse-only Follow-up Visit Nurse-only Visit (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 Visit ) Arrival Mode Ambulatory Ambulatory Ambulatory Transfer Assistance None Manual,None Transfer Assist (Other) x1 Patient Identification Verified (Name & Yes Yes Yes ) Patient Requires Transmission-Based No No Precautions Vital Signs Temperature (97.8 F-99.1 F) 96.7 F L 96.7 F L 97.4 F L Temperature Source Temporal Temporal Temporal Pulse Rate (60-100) 87 90 Pulse Location Monitor Monitor Respiratory Rate (12-18) 18 18 18 Respiratory rate source Observation Observation Observation Oxygen Delivery Method Room Air Room Air Blood Pressure (90/60-120/80) 156/82 H 150/75 H 154/94 H Blood Pressure Mean 106 100 114 Source Monitor Monitor Monitor Position Semi-Fowlers Sitting Blood Pressure Location Right Forearm Left Forearm History Since Last Visit- (Skip if this is Patient's initial visit) Have you changed medications since your No No last visit? Any new allergies or adverse reactions No No Had a fall/change in ADL's that may No No increase risk of falls Signs or symptoms of abuse and/or No No neglect since last visit Have you been in the hospital since your No No last visit? Has dressing in place as prescribed Yes Yes Has compression in place as prescribed Yes Yes Has offloadiing in place as prescribed N/A N/A Experienced any changes in pain level or No No management Left Footwear Regular Shoe Diabetic Shoe Right Footwear Regular Shoe Diabetic Shoe Pain Scale: 0-10 Numeric Is Patient Pain Free? Yes Yes Yes WC - Nurse 1 - General Ulcer Measurement Start: 11/22/24 09:35 Freq: Status: Active Protocol: Activity Type Activity Date Activity User E-sign Co-sign Detail Recorded Client Recorded Date Recorded By Document 11/22/24 09:54 ML [id number] 11/22/24 10:00 ML Document 11/25/24 10:55 RB [id number] 11/25/24 10:57 RB Document 11/29/24 12:08 KW [id number] 11/29/24 12:13 KW Document 12/06/24 10:00 BMF [id number] 12/06/24 10:14 BMF Document 12/08/24 12:07 DL [id number] 12/08/24 12:11 DL 11/22/24 11/25/24 11/29/24 09:54 10:55 12:08 Wound Center Nurse 1 RIGHT POSTERIOR LE -Combined with other wound -Current Size (cm) - Length -Current Size (cm) - Width -Current Size (cm) - Depth -Total Square Cm -Date of Last Picture (Recall this field) -Photo Taken -Tunneling -Undermining/Tunneling -Circular Undermining -Exudate Amt -Exudate Type -Wound Margin -Granulation Amt -Granulation Quality -Slough/Fibrin -Necrosis Amt -Necrotic Tissue Type -Structure Exposed -Texture (Lenora-wound Skin Appearance) Assessed -Moisture (Lenora-wound Skin Appearance) Assessed -Color (Lenora-wound Skin Appearance) Assessed -Temperature (Lenora-wound Skin No Abnormality Appearance) (Pt Warm) -Tenderness on Palpation (Lenora-wound No Skin Appearance) -Ulcer Cleansing Soap and Water -Foul Odor after Cleansing No Lower Limb Edema Present Yes Right Calf (cm) 69 69.5 68.5 Right Ankle (cm) 41.5 35.2 38.6 Left Calf (cm) 64.4 Left Ankle (cm) 35.4 12/06/24 12/08/24 10:00 12:07 Wound Center Nurse 1 RIGHT POSTERIOR LE -Combined with other wound No -Current Size (cm) - Length 11 0.1 -Current Size (cm) - Width 10 0.1 -Current Size (cm) - Depth 0.1 0.1 -Total Square Cm 110 0.01 -Date of Last Picture (Recall this 12/06/24 field) -Photo Taken Yes -Tunneling No -Undermining/Tunneling No -Circular Undermining No -Exudate Amt Large Medium -Exudate Type Serosanguineous Serosanguineous -Wound Margin Flat & Intact Indistinct, Non -Visible -Granulation Amt Medium (34-66%) Large (67-100%) -Granulation Quality Red Pale,[place] -Slough/Fibrin Yes -Necrosis Amt Medium (34-66%) None Present (0 %) -Necrotic Tissue Type Adherent Slough -Structure Exposed N/A -Texture (Lenora-wound Skin Appearance) Assessed, No Abnormality Scarring -Moisture (Lenora-wound Skin Appearance) Assessed Weeping -Color (Lenora-wound Skin Appearance) Assessed No Abnormality -Temperature (Lenora-wound Skin No Abnormality No Abnormality Appearance) (Pt Warm) (Pt Warm) -Tenderness on Palpation (Lenora-wound No No Skin Appearance) -Ulcer Cleansing Soap and Water Soap and Water -Foul Odor after Cleansing No No Lower Limb Edema Present Yes Right Calf (cm) 68.5 Right Ankle (cm) 34.1 Left Calf (cm) Left Ankle (cm) WC - Nurse 2 - General Ulcer CM Notes Start: 11/22/24 09:35 Freq: Status: Active Protocol: Activity Type Activity Date Activity User E-sign Co-sign Detail Recorded Client Recorded Date Recorded By Document 11/22/24 10:19 JF [id number] 11/22/24 10:30 JF Document 11/29/24 12:20 DS [id number] 11/29/24 12:21 DS Document 12/06/24 10:48 DS [id number] 12/06/24 10:51 DS 11/22/24 11/29/24 12/06/24 10:19 12:20 10:48 Wound Center Nurse 2 RIGHT POSTERIOR LE -Time 12:20 10:49 -Correct Patient Yes Yes -Correct Side, Site, Position Yes Yes -Procedure Performed No No -Wound/Ulcer Outcome Not Healed Not Healed Pain Scale: 0-10 Numeric Is Patient Pain Free? Yes Yes Yes WC - Nurse 3 - General Ulcer D/C NN Start: 11/22/24 09:35 Freq: Status: Active Protocol: Activity Type Activity Date Activity User E-sign Co-sign Detail Recorded Client Recorded Date Recorded By Document 11/22/24 10:40 ML [id number] 11/22/24 10:43 ML Document 11/25/24 10:55 RB [id number] 11/25/24 10:57 RB Document 11/29/24 12:30 KW [id number] 11/29/24 12:31 KW Document 12/01/24 15:07 KW [id number] 12/01/24 15:07 KW Document 12/06/24 10:44 BMF [id number] 12/06/24 10:45 BMF Document 12/06/24 11:12 BMF [id number] 12/06/24 11:15 BMF Document 12/08/24 12:07 DL [id number] 12/08/24 12:11 DL 11/22/24 11/25/24 11/29/24 10:40 10:55 12:30 Wound Care Center Nurse 3 RIGHT POSTERIOR LE -Ulcer Cleansing Rinsed/ Wound Cleanser Irrigated with Saline -Foul Odor after Cleansing No -Primary Dressing Applied Optilok 8x12 Optilok 6.5x10 Optilok 5x5 1/2 -Other Dressing -Primary Dressing Covered/Secured with -Other Covering -Aquacel AG 4x4 -Optilok 5x5 1/2 1 -Optilok 6.5x10 1 -Optilok 8x12 1 RLE -Multi-Layered Wrap Application Unna Boot - Unna Boot - Unna Boot - Right Right Right -Tubular Bandage -Size of Tubigrip Used -Size D ($) -Other -Unna- Right (Qty applied) 1 1 1 LLE -Tubular Bandage Single Layer Single Layer Double Layer -Size of Tubigrip Used Size F Size F Size F -Size F ($) 1 1 2 Treatment Response Procedure Tolerated Well Pain Scale: 0-10 Numeric Is Patient Pain Free? Yes Yes Yes WC - Visit Discharge Discharge Condition Stable Stable Ambulatory Status Ambulatory Ambulatory Transportation Private Auto Private Auto Medication Reconcilliation completed & No No provided to patient/care provider Clinical Summary of Care Provided Yes Yes 12/01/24 12/06/24 12/06/24 15:07 10:44 11:12 Wound Care Center Nurse 3 RIGHT POSTERIOR LE -Ulcer Cleansing Rinsed/ Rinsed/ Irrigated with Irrigated with Saline Saline -Foul Odor after Cleansing No No -Primary Dressing Applied Optilok 6.5x10 Aquacel AG 4x4 Optilok 8x12 -Other Dressing ABD unna -Primary Dressing Covered/Secured with Dry Gauze & Roll Gauze, Secured with Tape -Other Covering DRSG PER KW WILDLIFE BIOSTATION RESEARCH ECOLOGIST abd to pad ankle -Aquacel AG 4x4 2 -Optilok 5x5 1/2 -Optilok 6.5x10 1 -Optilok 8x12 2 RLE -Multi-Layered Wrap Application Unna Boot - Unna Boot - Right Right -Tubular Bandage Double Layer -Size of Tubigrip Used Size D -Size D ($) 2 -Other APPLIED PER KW WILDLIFE BIOSTATION RESEARCH ECOLOGIST -Unna- Right (Qty applied) 1 1 LLE -Tubular Bandage Double Layer -Size of Tubigrip Used Size F -Size F ($) 2 Treatment Response Procedure Procedure Tolerated Well Tolerated Well Pain Scale: 0-10 Numeric Is Patient Pain Free? Yes Yes Yes WC - Visit Discharge Discharge Condition Stable Stable Stable Ambulatory Status Ambulatory Ambulatory Ambulatory Transportation Private Auto Private Auto Private Auto Medication Reconcilliation completed & No provided to patient/care provider Clinical Summary of Care Provided Yes 12/08/24 12:07 Wound Care Center Nurse 3 RIGHT POSTERIOR LE -Ulcer Cleansing Soap and Water -Foul Odor after Cleansing No -Primary Dressing Applied Optilok 5x5 1/2 -Other Dressing unna -Primary Dressing Covered/Secured with -Other Covering -Aquacel AG 4x4 -Optilok 5x5 1/2 1 -Optilok 6.5x10 -Optilok 8x12 RLE -Multi-Layered Wrap Application Unna Boot - Right -Tubular Bandage -Size of Tubigrip Used -Size D ($) -Other -Unna- Right (Qty applied) 1 LLE -Tubular Bandage -Size of Tubigrip Used -Size F ($) Treatment Response Procedure Tolerated Well Pain Scale: 0-10 Numeric Is Patient Pain Free? Yes WC - Visit Discharge Discharge Condition Stable Ambulatory Status Ambulatory Transportation Private Auto Medication Reconcilliation completed & provided to patient/care provider Clinical Summary of Care Provided Charges/Coding Visit Charges Office Visits / Consults: 17989 OV L3 Est 20min Assessment/Plan Assessment/Plan (1) Venous stasis dermatitis of both lower extremities: CODE(S): I87.2 - Venous insufficiency (chronic) (peripheral) (2) Chronic venous insufficiency: CODE(S): I87.2 - Venous insufficiency (chronic) (peripheral) (3) Lymphedema: CODE(S): I89.0 - Lymphedema, not elsewhere classified (4) Dependent edema: CODE(S): R60.9 - Edema, unspecified (5) Leg edema, right: CODE(S): R60.0 - Localized edema (6) Leg edema, left: CODE(S): R60.0 - Localized edema (7) Right leg swelling: CODE(S): M79.89 - Other specified soft tissue disorders (8) Left leg swelling: CODE(S): M79.89 - Other specified soft tissue disorders (9) Lipodermatosclerosis: CODE(S): M79.3 - Panniculitis, unspecified (10) Morbid obesity: CODE(S): E66.01 - Morbid (severe) obesity due to excess calories (11) DDD (degenerative disc disease), lumbosacral: CODE(S): M51.37 - Other intervertebral disc degeneration, lumbosacral region (12) History of cellulitis: CODE(S): Z87.2 - Personal history of diseases of the skin and subcutaneoustissue (13) Osteoarthritis: (14) Status post bilateral knee replacements: CODE(S): Z96.653 - Presence of artificial knee joint, bilateral (15) Status post bilateral hip replacements: CODE(S): Z96.643 - Presence of artificial hip joint, bilateral PLAN: Plan This is a 63-year-old morbidly obese female who presented with severe swelling, edema, lymphedema in her lower extremities, as well as severe venous stasis skinchanges in her lower extremities. The right lower extremity is more severely affected. Manifestations include venous stasis dermatitis, hyperpigmentation, and lipodermatosclerosis. Cellulitis is not currently suspected. The patient is not active. 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 The swelling and edema in the patient's lower extremities is chronic in nature, and had recently becomeworse. A lengthy discussion has been undertaken with the patient regarding the conservative measures appropriate to the management of her lower extremity swelling and edema. Leg elevation has been encouraged. Elevation is to be to heart level, or higher, as much as possible. She has been encouraged to continue sleeping on a flat mattress at night.Her legs are to be elevated during daytime hours as well, as much as possible. Prolonged idle sitting has been discouraged. Activity/ambulation has been encouraged. Weight loss has also been discussed, and the patient underwent a dietary consultation at a recent clinic visit. Recent laboratory results have been reviewed. Vascular studies have been completed recently, results of which are as follows: There is no evidence of arterial occlusive disease in the lower extremities bilaterally. The patient's venous ultrasound study revealed no evidence of deep vein thrombosis on either side. The right great saphenous vein was noted to be incompetent below the knee. The right small saphenous vein was noted to be incompetent. The accessory saphenous vein in the right proximal calf was also noted shelbie incompetent. We are to continue compression to the lower extremities bilaterally. An Unna compression wrap is to be applied to the rightlower extremity, and will be changed twice weekly. A double Tubigrip compression sleeve will be applied to the left lower extremity, and will be donned by the patient on a daily basis. The patient's lower extremity dimensions have been documented in the clinic today, and have been sent to her DME provider in an effort to procure CircAid Velcro compression garments for thepatient's long-term use. There is question as to the patient's compliance with recommended measures such as leg elevation, avoidance of idle standing and sitting, etc. She relates travelrecently by automobile that have entailed longperiods of prolonged, idle sitting. In addition, the patient has been advised to discuss weight loss options with her primary care physician. These options include, but are not limited to, ongoing dietary monitoring, exercise regimens, pharmacological means, bariatric surgery, etc. The patient is to return in 1 week for reevaluation. Total time: 25 minutes 12/09/24 1235 Cosigner Signature (if applicable): CC: ~ Signed [facility]09-11-2025 History and physical note Author Binu Troncoso [facility] Note Date/Time December 01, 2024 1:30pm [facility] [address] [place] [id number] H&P Exam - Wound Care 12/01/24 1307 MR#: [id number] Acct: [id number] Name: MEGHA CIFUENTES Rep #:[id number] : 1960 63 From: Binu Morgan PCP: Dr. Ty Narayanan MD Status:RE G RCR Location: History of Present Illness Date of Service: 11/29/24 Chief Complaint: Bilateral lower extremity swelling and edema; severe venous stasis dermatitis History of Wound: This is a 63-year-old morbidly obese female who presented withsevere swelling and edema in both lower extremities, which had been chronic in nature. 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 She presented with severe swelling, edema, and lymphedema in both lower extremities. Her lower extremities also demonstrated severe, exudative venous stasis dermatitis, hyperpigmentation, and lipodermatosclerosis. The patient claimed to sleep on a flat mattress at night. She is not active. She denied a history of thrombophlebitis. The patient denied a history of diabetes mellitus,myocardial infarction, congestive heart failure, cerebrovascular accident, hypertension, pulmonary disease, renal disease, hyperlipidemia, and thyroid disease. The patient was seen and evaluated in the [facility] Emergency Department on November 09, 2024, at which time a prescription for oral Keflex was issued for lower extremity cellulitis. [facility] Medical History Lipodermatosclerosis Dependent edema Venous stasis dermatitis of both lower extremities Leg edema, left Leg edema, right Left leg swelling Right leg swelling Lymphedema Chronic venous insufficiency Wears dentures Alcohol use Arthritis Restless legs [...] never Vital Signs Vital Signs Vital Signs: Weight Weight: 377 lb 6.902 oz Physical Exam Const alert, oriented x3, no apparent distress, no limitations and well nourished Constitutional Narrative: The patient is morbidly obese. Her BMI is 53.1. General Appearance: cooperative, comfortable and well developed Orientation / Consciousness: awake, oriented to person, oriented to place and oriented to time Exam Limitations: no limitations Nutritional Appearance: obese morbidly obese HEENT normocephalic and head/scalp atraumatic Head and Scalp: normal to inspection, normocephalic and atraumatic Face and Sinus: normal facial exam Nose: external nose normal External Ear: external ears normal Eyes EOMs intact bilaterally General Eye: normal appearance of both eyes Neck full ROM Resp normal respiratory effort, normal air movement, no retractions and no use of accessory muscles Effort and Inspection: able to speak in complete sentences Extremity no calf tenderness General Extremity: Negative for clubbing or cyanosis Skin Wound Narrative: Severe swelling, edema, and lymphedema persist in the patient's lower extremities bilaterally. There are no lizzette open wounds or ulcerations. Scaly venous stasis dermatitis, hyperpigmentation, and lipodermatosclerosis are noted in the gaiter areas bilaterally, more pronounced in the right lower extremity. There is no overt sign of infection or cellulitis. No drainage is noted. Neuro oriented x3, CN's II-XII intact bilaterally, moves all extremities, no focal motor deficits and no sensory deficits noted Sensorium / Orientation: awake, alert, oriented to person, oriented to place andoriented to time Speech: speech normal Psych Appearance: grossly normal and appropriate Attitude: calm Activity / Motor Behavior: appropriate eye contact Speech: normal speech Mood & Affect: euthymic mood Attention / Concentration: attention grossly intact Debridement Note Debridement Note No debridement was completed: No debridement was completed today Post-Debridement Measurements and Additional Note: Post-Debridement Measurements/Treatment - Nurse 1 - General Ulcer Assessment Start: 11/22/24 09:35 Freq: Status: Active Protocol: WC.LOWJG Activity Type Activity Date Activity User E-sign Co-sign Detail Recorded Client Recorded Date Recorded By Document 11/22/24 09:54 ML [id number] 11/22/24 10:00 ML Document 11/25/24 10:55 RB [id number] 11/25/24 10:57 RB Document 11/29/24 12:08 KW [id number] 11/29/24 12:13 KW 11/22/24 11/25/24 11/29/24 09:54 10:55 12:08 - Today's Visit Information Type of service Follow-up Visit Nurse-only Follow-up Visit (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 Visit (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 ) ) Arrival Mode Ambulatory Ambulatory Ambulatory Transfer Assistance None None Patient Identification Verified (Name & Yes Yes Yes ) Patient Requires Transmission-Based No No Precautions Vital Signs Temperature (97.8 F-99.1 F) 97.9 F 96.5 F L 96.9 F L Temperature Source Temporal Temporal Temporal Pulse Rate (60-100) 100 94 91 Pulse Location Monitor Monitor Monitor Respiratory Rate (12-18) 15 18 18 Respiratory rate source Observation Observation Observation Oxygen Delivery Method Room Air Blood Pressure (90/60-120/80) 153/93 H 151/79 H 174/108 H Blood Pressure Mean 113 103 130 Source Monitor Monitor Monitor Position Sitting Semi-Fowlers Semi-Fowlers Blood Pressure Location Left Arm Left Arm Left Arm History Since Last Visit- (Skip if this is Patient's initial visit) Have you changed medications since your No No No last visit? Any new allergies or adverse reactions No No No Had a fall/change in ADL's that may No No No increase risk of falls Signs or symptoms of abuse and/or No No No neglect since last visit Have you been in the hospital since your No No No last visit? Has dressing in place as prescribed Yes Yes Yes Has compression in place as prescribed Yes Yes Yes Has offloadiing in place as prescribed No N/A N/A Experienced any changes in pain level or No No No management Left Footwear Regular Shoe Regular Shoe Right Footwear Regular Shoe Regular Shoe Pain Scale: 0-10 Numeric Is Patient Pain Free? Yes Yes Yes WC - Nurse 1 - General Ulcer Measurement Start: 11/22/24 09:35 Freq: Status: Active Protocol: Activity Type Activity Date Activity User E-sign Co-sign Detail Recorded Client Recorded Date Recorded By Document 11/22/24 09:54 ML [id number] 11/22/24 10:00 ML Document 11/25/24 10:55 RB [id number] 11/25/24 10:57 RB Document 11/29/24 12:08 KW [id number] 11/29/24 12:13 KW 11/22/24 11/25/24 11/29/24 09:54 10:55 12:08 Wound Center Nurse 1 RIGHT POSTERIOR LE -Texture (Lenora-wound Skin Appearance) Assessed -Moisture (Lenora-wound Skin Appearance) Assessed -Color (Lenora-wound Skin Appearance) Assessed -Temperature (Lenora-wound Skin No Abnormality Appearance) (Pt Warm) -Tenderness on Palpation (Lenora-wound No Skin Appearance) -Ulcer Cleansing Soap and Water -Foul Odor after Cleansing No Lower Limb Edema Present Yes Right Calf (cm) 69 69.5 68.5 Right Ankle (cm) 41.5 35.2 38.6 Left Calf (cm) 64.4 Left Ankle (cm) 35.4 WC - Nurse 2 - General Ulcer CM Notes Start: 11/22/24 09:35 Freq: Status: Active Protocol: Activity Type Activity Date Activity User E-sign Co-sign Detail Recorded Client Recorded Date Recorded By Document 11/22/24 10:19 JF [id number] 11/22/24 10:30 JF Document 11/29/24 12:20 DS [id number] 11/29/24 12:21 DS 11/22/24 11/29/24 10:19 12:20 Wound Center Nurse 2 RIGHT POSTERIOR LE -Time 12:20 -Correct Patient Yes -Correct Side, Site, Position Yes -Procedure Performed No -Wound/Ulcer Outcome Not Healed Pain Scale: 0-10 Numeric Is Patient Pain Free? Yes Yes WC - Nurse 3 - General Ulcer D/C NN Start: 11/22/24 09:35 Freq: Status: Active Protocol: Activity Type Activity Date Activity User E-sign Co-sign Detail Recorded Client Recorded Date Recorded By Document 11/22/24 10:40 ML [id number] 11/22/24 10:43 ML Document 11/25/24 10:55 RB [id number] 11/25/24 10:57 RB Document 11/29/24 12:30 KW [id number] 11/29/24 12:31 KW 11/22/24 11/25/24 11/29/24 10:40 10:55 12:30 Wound Care Center Nurse 3 RIGHT POSTERIOR LE -Ulcer Cleansing Rinsed/ Wound Cleanser Irrigated with Saline -Foul Odor after Cleansing No -Primary Dressing Applied Optilok 8x12 Optilok 6.5x10 Optilok 5x5 1/2 -Optilok 5x5 1/2 1 -Optilok 6.5x10 1 -Optilok 8x12 1 RLE -Multi-Layered Wrap Application Unna Boot - Unna Boot - Unna Boot - Right Right Right -Unna- Right (Qty applied) 1 1 1 LLE -Tubular Bandage Single Layer Single Layer Double Layer -Size of Tubigrip Used Size F Size F Size F -Size F ($) 1 1 2 Treatment Response Procedure Tolerated Well Pain Scale: 0-10 Numeric Is Patient Pain Free? Yes Yes Yes WC - Visit Discharge Discharge Condition Stable Stable Ambulatory Status Ambulatory Ambulatory Transportation Private Auto Private Auto Medication Reconcilliation completed & No No provided to patient/care provider Clinical Summary of Care Provided Yes Yes Charges/Coding Visit Charges Office Visits / Consults: 27209 OV L3 Est 20min Assessment/Plan Assessment/Plan (1) Venous stasis dermatitis of both lower extremities: CODE(S): I87.2 - Venous insufficiency (chronic) (peripheral) (2) Chronic venous insufficiency: CODE(S): I87.2 - Venous insufficiency (chronic) (peripheral) (3) Lymphedema: CODE(S): I89.0 - Lymphedema, not elsewhere classified (4) Dependent edema: CODE(S): R60.9 - Edema, unspecified (5) Leg edema, right: CODE(S): R60.0 - Localized edema (6) Leg edema, left: CODE(S): R60.0 - Localized edema (7) Right leg swelling: CODE(S): M79.89 - Other specified soft tissue disorders (8) Left leg swelling: CODE(S): M79.89 - Other specified soft tissue disorders (9) Lipodermatosclerosis: CODE(S): M79.3 - Panniculitis, unspecified (10) Morbid obesity: CODE(S): E66.01 - Morbid (severe) obesity due to excess calories (11) DDD (degenerative disc disease), lumbosacral: CODE(S): M51.37 - Other intervertebral disc degeneration, lumbosacral region (12) History of cellulitis: CODE(S): Z87.2 - Personal history of diseases of the skin and subcutaneoustissue (13) Osteoarthritis: (14) Status post bilateral knee replacements: CODE(S): Z96.653 - Presence of artificial knee joint, bilateral (15) Status post bilateral hip replacements: CODE(S): Z96.643 - Presence of artificial hip joint, bilateral PLAN: Plan This is a 63-year-old morbidly obese female who presented with severe swelling, edema, lymphedema in her lower extremities, as well as severe venous stasis skinchanges in her lower extremities. The right lower extremity is more severely affected. Manifestations include venous stasis dermatitis, hyperpigmentation, and lipodermatosclerosis. Cellulitis is not currently suspected. The patient is not active. 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 The swelling and edema in the patient's lower extremities is chronic in nature, and had recently becomeworse. A lengthy discussion has been undertaken with the patient regarding the conservative measures appropriate to the management of her lower extremity swelling and edema. Leg elevation has been encouraged. Elevation is to be to heart level, or higher, as much as possible. She has been encouraged to continue sleeping on a flat mattress at night. Her legs are to be elevated during daytime hours as well, as much as possible. Prolonged idle sitting has been discouraged. Activity/ambulation has been encouraged. Weight loss has also been discussed, and the patient underwent a dietary consultation at her clinic visit today. Recent laboratory results have been reviewed. Vascular studies have been completed earlier today, results of which are as follows: There is no evidence of arterial occlusive disease in the lower extremities bilaterally. The patient's venous ultrasound study revealed no evidence of deepvein thrombosis on either side. The right great saphenous vein was noted to be incompetent below the knee. The right small saphenous vein was noted to be incompetent. The accessory saphenous vein in the right proximal calf was also noted to be incompetent. We are to continue compression to the lower extremities bilaterally. An Unna compression wrap is to be applied to the rightlower extremity, and will be changed twice weekly. A double Tubigrip compression sleeve will be applied to the left lower extremity, and will be donned by the patient on a daily basis. The patient's lower extremity dimensions have been documented in the clinic today, and are to be sent to her DME provider in an effort to procure CircAid Velcro compression garments for thepatient's long-term use. The patient is to return in 1 week for reevaluation. Total time: 26 minutes 12/01/24 1330 <Electronically signed by Binu Troncoso MD> Aliceer Signature (if applicable): CC: ~ Signed [facility] Work Phone: [phone]) 884-883409-11-2025 History and physical note [facility] [address] [place] [address] [place] [address] H&P Exam - Wound Care 12/01/24 1307 MR#: [id number] Acct: [id number] Name: MEGHA CIFUENTES Rep #:[id number] : 1960 63 From: Binu Morgan PCP: Dr. Ty Narayanan MD Status:RE G RCR Location: History of Present Illness Date of Service: 11/29/24 Chief Complaint: Bilateral lower extremity swelling and edema; severe venous stasis dermatitis History of Wound: This is a 63-year-old morbidly obese female who presented withsevere swelling andedema in both lower extremities, which had been chronic in nature. 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 She presented with severe swelling, edema, and lymphedema in both lower extremities. Her lower extremities also demonstrated severe, exudative venous stasis dermatitis, hyperpigmentation, and lipodermatosclerosis. The patient claimed to sleep on a flat mattress at night. She is not active. She denied a history of thrombophlebitis. The patient denied a history of diabetes mellitus,myocardial infarction, congestive heart failure, cerebrovascular accident, hypertension, pulmonary disease, renal disease, hyperlipidemia, and thyroid disease. The patient was seen and evaluated in the [facility] Emergency Department on November 09, 2024, at which time a prescription for oral Keflex was issued for lower extremity cellulitis. [facility] Medical History Lipodermatosclerosis Dependent edema Venous stasis dermatitis of both lower extremities Leg edema, left Leg edema, right Left leg swelling Right leg swelling Lymphedema Chronic venous insufficiency Wears dentures Alcohol use Arthritis Restless legs [...] 500 mg PO Q6 5 days #24 KAT RICKETTS 11/09/24 Unknown Rx Allergy/AdvReac Type Severity Reaction [...] never Vital Signs Vital Signs Vital Signs: Weight Weight: 377 lb 6.902 oz Physical Exam Const alert, oriented x3, no apparent distress, no limitations and well nourished Constitutional Narrative: The patient is morbidly obese. Her BMI is 53.1. General Appearance: cooperative, comfortable and well developed Orientation / Consciousness: awake, oriented to person, oriented to place and oriented to time Exam Limitations: no limitations Nutritional Appearance: obese morbidly obese HEENT normocephalic and head/scalp atraumatic Head and Scalp: normal to inspection, normocephalic and atraumatic Face and Sinus: normal facial exam Nose: external nose normal External Ear: external ears normal Eyes EOMs intact bilaterally General Eye: normal appearance of both eyes Neck full ROM Resp normal respiratory effort, normal air movement, no retractions and no use of accessory muscles Effort and Inspection: able to speak in complete sentences Extremity no calf tenderness General Extremity: Negative for clubbing or cyanosis Skin Wound Narrative: Severe swelling, edema, and lymphedema persist in the patient's lower extremities bilaterally. There are no lizzette open wounds or ulcerations. Scaly venous stasis dermatitis, hyperpigmentation, and lipodermatosclerosis are noted in the gaiter areas bilaterally, more pronounced in the right lower extremity. There is no overt sign of infection or cellulitis. No drainage is noted. Neuro oriented x3, CN's II-XII intact bilaterally, moves all extremities, no focal motor deficits and no sensory deficits noted Sensorium / Orientation: awake, alert, oriented to person, oriented to place andoriented to time Speech: speech normal Psych Appearance: grossly normal and appropriate Attitude: calm Activity / Motor Behavior: appropriate eye contact Speech: normal speech Mood & Affect: euthymic mood Attention / Concentration: attention grossly intact Debridement Note Debridement Note No debridement was completed: No debridement was completed today Post-Debridement Measurements and Additional Note: Post-Debridement Measurements/Treatment - Nurse 1 - General Ulcer Assessment Start: 11/22/24 09:35 Freq: Status: Active Protocol: SHIVA.KAMI Activity Type Activity Date Activity User E-sign Co-sign Detail Recorded Client Recorded Date Recorded By Document 11/22/24 09:54 ML [id number] 11/22/24 10:00 ML Document 11/25/24 10:55 RB [id number] 11/25/24 10:57 RB Document 11/29/24 12:08 KW [id number] 11/29/24 12:13 KW 11/22/24 11/25/24 11/29/24 09:54 10:55 12:08 - Today's Visit Information Type of service Follow-up Visit Nurse-only Follow-up Visit (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 Visit (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 ) ) Arrival Mode Ambulatory Ambulatory Ambulatory Transfer Assistance None None Patient Identification Verified (Name & Yes Yes Yes ) Patient Requires Transmission-Based No No Precautions Vital Signs Temperature (97.8 F-99.1 F) 97.9 F 96.5 F L 96.9 F L Temperature Source Temporal Temporal Temporal Pulse Rate (60-100) 100 94 91 Pulse Location Monitor Monitor Monitor Respiratory Rate (12-18) 15 18 18 Respiratory rate source Observation Observation Observation Oxygen Delivery Method Room Air Blood Pressure (90/60-120/80) 153/93 H 151/79 H 174/108 H Blood Pressure Mean 113 103 130 Source Monitor Monitor Monitor Position Sitting Semi-Fowlers Semi-Fowlers Blood Pressure Location Left Arm Left Arm Left Arm History Since Last Visit- (Skip if this is Patient's initial visit) Have you changed medications since your No No No last visit? Any new allergies or adverse reactions No No No Had a fall/change in ADL's that may No No No increase risk of falls Signs or symptoms of abuse and/or No No No neglect since last visit Have you been in the hospital since your No No No last visit? Has dressing in place as prescribed Yes Yes Yes Has compression in place as prescribed Yes Yes Yes Has offloadiing in place as prescribed No N/A N/A Experienced any changes in pain level or No No No management Left Footwear Regular Shoe Regular Shoe Right Footwear Regular Shoe Regular Shoe Pain Scale: 0-10 Numeric Is Patient Pain Free? Yes Yes Yes WC - Nurse 1 - General Ulcer Measurement Start: 11/22/24 09:35 Freq: Status: Active Protocol: Activity Type Activity Date Activity User E-sign Co-sign Detail Recorded Client Recorded Date Recorded By Document 11/22/24 09:54 ML [id number] 11/22/24 10:00 ML Document 11/25/24 10:55 RB [id number] 11/25/24 10:57 RB Document 11/29/24 12:08 KW [id number] 11/29/24 12:13 KW 11/22/24 11/25/24 11/29/24 09:54 10:55 12:08 Wound Center Nurse 1 RIGHT POSTERIOR LE -Texture (Lenora-wound Skin Appearance) Assessed -Moisture (Lenora-wound Skin Appearance) Assessed -Color (Lenora-wound Skin Appearance) Assessed -Temperature (Lenora-wound Skin No Abnormality Appearance) (Pt Warm) -Tenderness on Palpation (Lenora-wound No Skin Appearance) -Ulcer Cleansing Soap and Water -Foul Odor after Cleansing No Lower Limb Edema Present Yes Right Calf (cm) 69 69.5 68.5 Right Ankle (cm) 41.5 35.2 38.6 Left Calf (cm) 64.4 Left Ankle (cm) 35.4 WC - Nurse 2 - General Ulcer CM Notes Start: 11/22/24 09:35 Freq: Status: Active Protocol: Activity Type Activity Date Activity User E-sign Co-sign Detail Recorded Client Recorded Date Recorded By Document 11/22/24 10:19 JF [id number] 11/22/24 10:30 JF Document 11/29/24 12:20 DS [id number] 11/29/24 12:21 DS 11/22/24 11/29/24 10:19 12:20 Wound Center Nurse 2 RIGHT POSTERIOR LE -Time 12:20 -Correct Patient Yes -Correct Side, Site, Position Yes -Procedure Performed No -Wound/Ulcer Outcome Not Healed Pain Scale: 0-10 Numeric Is Patient Pain Free? Yes Yes - Nurse 3 - General Ulcer D/C NN Start: 11/22/24 09:35 Freq: Status: Active Protocol: Activity Type Activity Date Activity User E-sign Co-sign Detail Recorded Client Recorded Date Recorded By Document 11/22/24 10:40 ML [id number] 11/22/24 10:43 ML Document 11/25/24 10:55 RB [id number] 11/25/24 10:57 RB Document 11/29/24 12:30 KW [id number] 11/29/24 12:31 KW 11/22/24 11/25/24 11/29/24 10:40 10:55 12:30 Wound Care Center Nurse 3 RIGHT POSTERIOR LE -Ulcer Cleansing Rinsed/ Wound Cleanser Irrigated with Saline -Foul Odor after Cleansing No -Primary Dressing Applied Optilok 8x12 Optilok 6.5x10 Optilok 5x5 1/2 -Optilok 5x5 1/2 1 -Optilok 6.5x10 1 -Optilok 8x12 1 RLE -Multi-Layered Wrap Application Unna Boot - Unna Boot - Unna Boot - Right Right Right -Unna- Right (Qty applied) 1 1 1 LLE -Tubular Bandage Single Layer Single Layer Double Layer -Size of Tubigrip Used Size F Size F Size F -Size F ($) 1 1 2 Treatment Response Procedure Tolerated Well Pain Scale: 0-10 Numeric Is Patient Pain Free? Yes Yes Yes - Visit Discharge Discharge Condition Stable Stable Ambulatory Status Ambulatory Ambulatory Transportation Private Auto Private Auto Medication Reconcilliation completed & No No provided to patient/care provider Clinical Summary of Care Provided Yes Yes Charges/Coding Visit Charges Office Visits / Consults: 39158 OV L3 Est 20min Assessment/Plan Assessment/Plan (1) Venous stasis dermatitis of both lower extremities: CODE(S): I87.2 - Venous insufficiency (chronic) (peripheral) (2) Chronic venous insufficiency: CODE(S): I87.2 - Venous insufficiency (chronic) (peripheral) (3) Lymphedema: CODE(S): I89.0 - Lymphedema, not elsewhere classified (4) Dependent edema: CODE(S): R60.9 - Edema, unspecified (5) Leg edema, right: CODE(S): R60.0 - Localized edema (6) Leg edema, left: CODE(S): R60.0 - Localized edema (7) Right leg swelling: CODE(S): M79.89 - Other specified soft tissue disorders (8) Left leg swelling: CODE(S): M79.89 - Other specified soft tissue disorders (9) Lipodermatosclerosis: CODE(S): M79.3 - Panniculitis, unspecified (10) Morbid obesity: CODE(S): E66.01 - Morbid (severe) obesity due to excess calories (11) DDD (degenerative disc disease), lumbosacral: CODE(S): M51.37 - Other intervertebral disc degeneration, lumbosacral region (12) History of cellulitis: CODE(S): Z87.2 - Personal history of diseases of the skin and subcutaneoustissue (13) Osteoarthritis: (14) Status post bilateral knee replacements: CODE(S): Z96.653 - Presence of artificial knee joint, bilateral (15) Status post bilateral hip replacements: CODE(S): Z96.643 - Presence of artificial hip joint, bilateral PLAN: Plan This is a 63-year-old morbidly obese female who presented with severe swelling, edema, lymphedema in her lower extremities, as well as severe venous stasis skinchanges in her lower extremities. The right lower extremity is more severely affected. Manifestations include venous stasis dermatitis, hyperpigmentation, and lipodermatosclerosis. Cellulitis is not currently suspected. The patient is not active. 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 The swelling and edema in the patient's lower extremities is chronic in nature, and had recently becomeworse. A lengthy discussion has been undertaken with the patient regarding the conservative measures appropriate to the management of her lower extremity swelling and edema. Leg elevation has been encouraged. Elevation is to be to heart level, or higher, as much as possible. She has been encouraged to continue sleeping on a flat mattress at night.Her legs are to be elevated during daytime hours as well, as much as possible. Prolonged idle sitting has been discouraged. Activity/ambulation has been encouraged. Weight loss has also been discussed, and the patient underwent a dietary consultation at her clinic visit today. Recent laboratory results have been reviewed. Vascular studies have been completed earlier today, results of which are asfollows: There is no evidence of arterial occlusive disease in the lower extremities bilaterally. The patient's venous ultrasound study revealed no evidence of deepvein thrombosis on either side. Theright great saphenous vein was noted to be incompetent below the knee. The right small saphenous vein was noted to be incompetent. The accessory saphenous vein in the right proximal calf was also noted to be incompetent. We are to continue compression to the lower extremities bilaterally. An Unna co mpression wrap is to be applied to the rightlower extremity, and will be changed twice weekly. A double Tubigrip compression sleeve will be applied to the left lower extremity, and will be donned by the patient on a daily basis. The patient's lower extremity dimensions have been documented in the clinic today, and are to be sent to her DME provider in an effort to procure CircAid Velcro compression garments for thepatient's long-term use. The patient is to return in 1 week for reevaluation. Total time: 26 minutes 12/01/24 1330 Cosigner Signature (if applicable): CC: ~ Signed [facility]09-05-2025 History and physical note Author Binu Troncoso [facility] Note Date/Time November 25, 2024 1:17pm [facility] [address] [place] [address] H&P Exam - Wound Care 11/25/24 1225 MR#: [id number] Acct: [id number] Name: MEGHA CIFUENTES Rep #:[id number] : 1960 63 From: Binu Morgan PCP: Dr. Ty Narayanan MD Status:RE G RCR Location: History of Present Illness Date of Service: 11/22/24 Chief Complaint: Bilateral lower extremity swelling and edema; severe venous stasis dermatitis History of Wound: This is a 63-year-old morbidly obese female who presented withsevere swelling and edema in both lower extremities, which has been chronic in nature. 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 She presented with severe swelling, edema, and lymphedema in both lower extremities. Her lower extremities also demonstrate severe, exudative venous stasis dermatitis, hyperpigmentation, and lipodermatosclerosis. The patient claims to sleep on a flat mattress at night. She is not active. She denies a history of thrombophlebitis. Vascular studies have been recently ordered, and yet to be performed. The patient denies a history of diabetes mellitus, myocardial infarction, congestive heart failure, cerebrovascular accident, hypertension, pulmonary disease, renal disease, hyperlipidemia, and thyroid disease. The patient was seen and evaluated in the [facility] Emergency Department on November 09, 2024, at which time a prescription for oral Keflex was issued for lower extremity cellulitis. [facility] Medical History Dependent edema Venous stasis dermatitis of both lower extremities Leg edema, left Leg edema, right Left leg swelling Right leg swelling Lymphedema Chronic venous insufficiency Wears dentures Alcohol use Arthritis Restless legs [...] never Vital Signs Vital Signs Vital Signs: 11/25/24 10:55 Temperature 96.5 F L Temperature Source Temporal Pulse Rate 94 Respiratory Rate 18 Blood Pressure 151/79 H Blood Pressure Mean 103 Blood Pressure Source Monitor Blood Pressure Position Semi-Fowlers Blood Pressure Location Left Arm Physical Exam Const alert, oriented x3, no apparent distress, no limitations and well nourished Constitutional Narrative: The patient is morbidly obese. Her BMI is 53.1. General Appearance: cooperative, comfortable and well developed Orientation / Consciousness: awake, oriented to person, oriented to place and oriented to time Exam Limitations: no limitations Nutritional Appearance: obese morbidly obese HEENT normocephalic and head/scalp atraumatic Head and Scalp: normal to inspection, normocephalic and atraumatic Face and Sinus: normal facial exam Nose: external nose normal External Ear: external ears normal Eyes EOMs intact bilaterally General Eye: normal appearance of both eyes Neck full ROM Resp normal respiratory effort, normal air movement, no retractions and no use of accessory muscles Effort and Inspection: able to speak in complete sentences Extremity no calf tenderness General Extremity: Negative for clubbing or cyanosis Skin Wound Narrative: Severe swelling, edema, and lymphedema are noted in the patient's lower extremities bilaterally. Venous stasis dermatitis, hyperpigmentation, and lipodermatosclerosis are noted in the gaiter areas bilaterally, more pronounced in the right lower extremity. There is no overt sign of infection or cellulitis. No drainage is noted. Neuro oriented x3, CN's II-XII intact bilaterally, moves all extremities, no focal motor deficits and no sensory deficits noted Sensorium / Orientation: awake, alert, oriented to person, oriented to place andoriented to time Psych Appearance: grossly normal and appropriate Attitude: calm Activity / Motor Behavior: appropriate eye contact Speech: normal speech Mood & Affect: euthymic mood Thought Process: normal thought process Thought Content: normal thought content Attention / Concentration: attention grossly intact Debridement Note Debridement Note No debridement was completed: No debridement was completed today Post-Debridement Measurements and Additional Note: Post-Debridement Measurements/Treatment SHIVA - Nurse 1 - General Ulcer Assessment Start: 11/22/24 09:35 Freq: Status: Active Protocol: WC.LOWEXT Activity Type Activity Date Activity User E-sign Co-sign Detail Recorded Client Recorded Date Recorded By Document 11/22/24 09:54 ML [id number] 11/22/24 10:00 ML Document 11/25/24 10:55 RB [id number] 11/25/24 10:57 RB 11/22/24 11/25/24 09:54 10:55 - Today's Visit Information Type of service Follow-up Visit Nurse-only (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 Visit ) Arrival Mode Ambulatory Ambulatory Transfer Assistance None None Patient Identification Verified (Name & Yes Yes ) Patient Requires Transmission-Based No No Precautions Vital Signs Temperature (97.8 F-99.1 F) 97.9 F 96.5 F L Temperature Source Temporal Temporal Pulse Rate (60-100) 100 94 Pulse Location Monitor Monitor Respiratory Rate (12-18) 15 18 Respiratory rate source Observation Observation Blood Pressure (90/60-120/80) 153/93 H 151/79 H Blood Pressure Mean 113 103 Source Monitor Monitor Position Sitting Semi-Fowlers Blood Pressure Location Left Arm Left Arm History Since Last Visit- (Skip if this is Patient's initial visit) Have you changed medications since your No No last visit? Any new allergies or adverse reactions No No Had a fall/change in ADL's that may No No increase risk of falls Signs or symptoms of abuse and/or No No neglect since last visit Have you been in the hospital since your No No last visit? Has dressing in place as prescribed Yes Yes Has compression in place as prescribed Yes Yes Has offloadiing in place as prescribed No N/A Experienced any changes in pain level or No No management Left Footwear Regular Shoe Right Footwear Regular Shoe Pain Scale: 0-10 Numeric Is Patient Pain Free? Yes Yes - Nurse 1 - General Ulcer Measurement Start: 11/22/24 09:35 Freq: Status: Active Protocol: Activity Type Activity Date Activity User E-sign Co-sign Detail Recorded Client Recorded Date Recorded By Document 11/22/24 09:54 ML [id number] 11/22/24 10:00 ML Document 11/25/24 10:55 RB [id number] 11/25/24 10:57 RB 11/22/24 11/25/24 09:54 10:55 Wound Center Nurse 1 Lower Limb Edema Present Yes Right Calf (cm) 69 69.5 Right Ankle (cm) 41.5 35.2 - Nurse 2 - General Ulcer CM Notes Start: 11/22/24 09:35 Freq: Status: Active Protocol: Activity Type Activity Date Activity User E-sign Co-sign Detail Recorded Client Recorded Date Recorded By Document 11/22/24 10:19 JF [id number] 11/22/24 10:30 JF 11/22/24 10:19 Pain Scale: 0-10 Numeric Is Patient Pain Free? Yes WC - Nurse 3 - General Ulcer D/C NN Start: 11/22/24 09:35 Freq: Status: Active Protocol: Activity Type Activity Date Activity User E-sign Co-sign Detail Recorded Client Recorded Date Recorded By Document 11/22/24 10:40 ML [id number] 11/22/24 10:43 ML Document 11/25/24 10:55 RB [id number] 11/25/24 10:57 RB 11/22/24 11/25/24 10:40 10:55 Wound Care Center Nurse 3 RIGHT POSTERIOR LE -Ulcer Cleansing Rinsed/ Wound Cleanser Irrigated with Saline -Foul Odor after Cleansing No -Primary Dressing Applied Optilok 8x12 Optilok 6.5x10 -Optilok 6.5x10 1 -Optilok 8x12 1 RLE -Multi-Layered Wrap Application Unna Boot - Unna Boot - Right Right -Unna- Right (Qty applied) 1 1 LLE -Tubular Bandage Single Layer Single Layer -Size of Tubigrip Used Size F Size F -Size F ($) 1 1 Treatment Response Procedure Tolerated Well Pain Scale: 0-10 Numeric Is Patient Pain Free? Yes Yes - Visit Discharge Discharge Condition Stable Ambulatory Status Ambulatory Transportation Private Auto Medication Reconcilliation completed & No provided to patient/care provider Clinical Summary of Care Provided Yes Lab / Micro Data Attestation: I reviewed the patient's lab results. Lab results narrative: Laboratory Tests 11/09/24 12:58 WBC 4.0 L Hgb 13.0 Hct 39.9 Plt Count 183 Sodium 137 Potassium 4.4 Chloride 102 Carbon Dioxide 24.6 BUN 8 Creatinine 0.67 L BUN/Creatinine Ratio 11.6 Glucose 99 Calcium 8.6 Charges/Coding Visit Charges Office Visits / Consults: [id number] OV L4 New 45min Assessment/Plan Assessment/Plan (1) Venous stasis dermatitis of both lower extremities: CODE(S): I87.2 - Venous insufficiency (chronic) (peripheral) (2) Chronic venous insufficiency: CODE(S): I87.2 - Venous insufficiency (chronic) (peripheral) (3) Lymphedema: CODE(S): I89.0 - Lymphedema, not elsewhere classified (4) Dependent edema: CODE(S): R60.9 - Edema, unspecified (5) Leg edema, right: CODE(S): R60.0 - Localized edema (6) Leg edema, left: CODE(S): R60.0 - Localized edema (7) Right leg swelling: CODE(S): M79.89 - Other specified soft tissue disorders (8) Left leg swelling: CODE(S): M79.89 - Other specified soft tissue disorders (9) Morbid obesity: CODE(S): E66.01 - Morbid (severe) obesity due to excess calories (10) DDD (degenerative disc disease), lumbosacral: CODE(S): M51.37 - Other intervertebral disc degeneration, lumbosacral region (11) History of cellulitis: CODE(S): Z87.2 - Personal history of diseases of the skin and subcutaneoustissue (12) Osteoarthritis: (13) Status post bilateral knee replacements: CODE(S): Z96.653 - Presence of artificial knee joint, bilateral (14) Status post bilateral hip replacements: CODE(S): Z96.643 - Presence of artificial hip joint, bilateral PLAN: Plan This is a 63-year-old morbidly obese female who presented with severe swelling, edema, lymphedema in her lower extremities, as well as severe venous stasis skinchanges in her lower extremities. The right lower extremity is more severely affected. Manifestations include venous stasis dermatitis, hyperpigmentation, and lipodermatosclerosis. Cellulitis is not currently suspected. The patient is not active. 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 The swelling and edema in the patient's lower extremities is chronic in nature, and recently getting worse. A lengthy discussion has been undertaken with the patient regarding the conservative measures appropriate to the management of her lower extremity swelling and edema. Leg elevation has been encouraged. Elevation is to be to heart level, or higher, as much as possible. She has been encouraged to continue sleeping on a flat mattress at night. Her legs are to be elevated during daytime hours as well, as much as possible. Prolonged idle sitting has been discouraged. Activity/ambulation has been encouraged. Weight loss has also been discussed, and arrangements are to be made for the patient to undergo a dietary consultation. Recent laboratory results have been reviewed. Vascularstudies have been scheduled, and are due to be performed in the near future. Punch biopsies have been recently obtained, the results of which are pending. We are to implement compression to the lower extremities bilaterally. An Unna compression wrap is to be applied to the right lower extremity, and will be changed twice weekly. A Tubigrip compression sleeve will be applied to the leftlower extremity, and will be donned by the patient on a daily basis. The patient is to return in 1 week for reevaluation. Total time: 48 minutes 11/25/24 1317 <Electronically signed by Binu Troncoso MD> Cosigner Signature (if applicable): CC: ~ Signed [facility] Work Phone: 1(327) 268-295709-05-2025 History and physical note [facility] [address] [place] [id number] H&P Exam - Wound Care 11/25/24 1225 MR#: [id number] Acct: [id number] Name: MEGHA CIFUENTES Rep #:[id number] : 1960 63 From: Binu Morgan PCP: Dr. Ty Narayanan MD Status:[facility] Location: History of Present Illness Date of Service: 11/22/24 Chief Complaint: Bilateral lower extremity swelling and edema; severe venous stasis dermatitis History of Wound: This is a 63-year-old morbidly obese female who presented withsevere swelling andedema in both lower extremities, which has been chronic in nature. 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 She presented with severe swelling, edema, and lymphedema in both lower extremities. Her lower extremities also demonstrate severe, exudative venous stasis dermatitis, hyperpigmentation, and lipodermatosclerosis. The patient claims to sleep on a flat mattress at night. She is not active. She denies a history of thrombophlebitis. Vascular studies have been recently ordered, and yetto be performed. The patient denies a history of diabetes mellitus, myocardial infarction, congestive heart failure, cerebrovascular accident, hypertension, pulmonary disease, renal disease, hyperlipidemia, and thyroid disease. The patient was seen and evaluated in the [facility] Emergency Department on November 09, 2024, at which time a prescription for oral Keflex was issued for lower extremity cellulitis. [facility] Medical History Dependent edema Venous stasis dermatitis of both lower extremities Leg edema, left Leg edema, right Left leg swelling Right leg swelling Lymphedema Chronic venous insufficiency Wears dentures Alcohol use Arthritis Restless legs [...] never Vital Signs Vital Signs Vital Signs: 11/25/24 10:55 Temperature 96.5 F L Temperature Source Temporal Pulse Rate 94 Respiratory Rate 18 Blood Pressure 151/79 H Blood Pressure Mean 103 Blood Pressure Source Monitor Blood Pressure Position Semi-Fowlers Blood Pressure Location Left Arm Physical Exam Const alert, oriented x3, no apparent distress, no limitations and well nourished Constitutional Narrative: The patient is morbidly obese. Her BMI is 53.1. General Appearance: cooperative, comfortable and well developed Orientation / Consciousness: awake, oriented to person, oriented to place and oriented to time Exam Limitations: no limitations Nutritional Appearance: obese morbidly obese HEENT normocephalic and head/scalp atraumatic Head and Scalp: normal to inspection, normocephalic and atraumatic Face and Sinus: normal facial exam Nose: external nose normal External Ear: external ears normal Eyes EOMs intact bilaterally General Eye: normal appearance of both eyes Neck full ROM Resp normal respiratory effort, normal air movement, no retractions and no use of accessory muscles Effort and Inspection: able to speak in complete sentences Extremity no calf tenderness General Extremity: Negative for clubbing or cyanosis Skin Wound Narrative: Severe swelling, edema, and lymphedema are noted in the patient's lower extremities bilaterally. Venous stasis dermatitis, hyperpigmentation, and lipodermatosclerosis are noted in the gaiter areas bilaterally, more pronounced in the right lower extremity. There is no overt sign of infection or cellulitis. No drainage is noted. Neuro oriented x3, CN's II-XII intact bilaterally, moves all extremities, no focal motor deficits and no sensory deficits noted Sensorium / Orientation: awake, alert, oriented to person, oriented to place andoriented to time Psych Appearance: grossly normal and appropriate Attitude: calm Activity / Motor Behavior: appropriate eye contact Speech: normal speech Mood & Affect: euthymic mood Thought Process: normal thought process Thought Content: normal thought content Attention / Concentration: attention grossly intact Debridement Note Debridement Note No debridement was completed: No debridement was completed today Post-Debridement Measurements and Additional Note: Post-Debridement Measurements/Treatment WC - Nurse 1 - General Ulcer Assessment Start: 11/22/24 09:35 Freq: Status: Active Protocol: SHIVA.KAMI Activity Type Activity Date Activity User E-sign Co-sign Detail Recorded Client Recorded Date Recorded By Document 11/22/24 09:54 ML [id number] 11/22/24 10:00 ML Document 11/25/24 10:55 RB [id number] 11/25/24 10:57 RB 11/22/24 11/25/24 09:54 10:55 - Today's Visit Information Type of service Follow-up Visit Nurse-only (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 Visit ) Arrival Mode Ambulatory Ambulatory Transfer Assistance None None Patient Identification Verified (Name & Yes Yes ) Patient Requires Transmission-Based No No Precautions Vital Signs Temperature (97.8 F-99.1 F) 97.9 F 96.5 F L Temperature Source Temporal Temporal Pulse Rate (60-100) 100 94 Pulse Location Monitor Monitor Respiratory Rate (12-18) 15 18 Respiratory rate source Observation Observation Blood Pressure (90/60-120/80) 153/93 H 151/79 H Blood Pressure Mean 113 103 Source Monitor Monitor Position Sitting Semi-Fowlers Blood Pressure Location Left Arm Left Arm History Since Last Visit- (Skip if this is Patient's initial visit) Have you changed medications since your No No last visit? Any new allergies or adverse reactions No No Had a fall/change in ADL's that may No No increase risk of falls Signs or symptoms of abuse and/or No No neglect since last visit Have you been in the hospital since your No No last visit? Has dressing in place as prescribed Yes Yes Has compression in place as prescribed Yes Yes Has offloadiing in place as prescribed No N/A Experienced any changes in pain level or No No management Left Footwear Regular Shoe Right Footwear Regular Shoe Pain Scale: 0-10 Numeric Is Patient Pain Free? Yes Yes - Nurse 1 - General Ulcer Measurement Start: 11/22/24 09:35 Freq: Status: Active Protocol: Activity Type Activity Date Activity User E-sign Co-sign Detail Recorded Client Recorded Date Recorded By Document 11/22/24 09:54 ML [id number] 11/22/24 10:00 ML Document 11/25/24 10:55 RB [id number] 11/25/24 10:57 RB 11/22/24 11/25/24 09:54 10:55 Wound Center Nurse 1 Lower Limb Edema Present Yes Right Calf (cm) 69 69.5 Right Ankle (cm) 41.5 35.2 - Nurse 2 - General Ulcer CM Notes Start: 11/22/24 09:35 Freq: Status: Active Protocol: Activity Type Activity Date Activity User E-sign Co-sign Detail Recorded Client Recorded Date Recorded By Document 11/22/24 10:19 JF [id number] 11/22/24 10:30 11/22/24 10:19 Pain Scale: 0-10 Numeric Is Patient Pain Free? Yes WC - Nurse 3 - General Ulcer D/C NN Start: 11/22/24 09:35 Freq: Status: Active Protocol: Activity Type Activity Date Activity User E-sign Co-sign Detail Recorded Client Recorded Date Recorded By Document 11/22/24 10:40 ML [id number] 11/22/24 10:43 ML Document 11/25/24 10:55 RB [id number] 11/25/24 10:57 RB 11/22/24 11/25/24 10:40 10:55 Wound Care Center Nurse 3 RIGHT POSTERIOR LE -Ulcer Cleansing Rinsed/ Wound Cleanser Irrigated with Saline -Foul Odor after Cleansing No -Primary Dressing Applied Optilok 8x12 Optilok 6.5x10 -Optilok 6.5x10 1 -Optilok 8x12 1 RLE -Multi-Layered Wrap Application Unna Boot - Unna Boot - Right Right -Unna- Right (Qty applied) 1 1 LLE -Tubular Bandage Single Layer Single Layer -Size of Tubigrip Used Size F Size F -Size F ($) 1 1 Treatment Response Procedure Tolerated Well Pain Scale: 0-10 Numeric Is Patient Pain Free? Yes Yes WC - Visit Discharge Discharge Condition Stable Ambulatory Status Ambulatory Transportation Private Auto Medication Reconcilliation completed & No provided to patient/care provider Clinical Summary of Care Provided Yes Lab / Micro Data Attestation: I reviewed the patient's lab results. Lab results narrative: Laboratory Tests 11/09/24 12:58 WBC 4.0 L Hgb 13.0 Hct 39.9 Plt Count 183 Sodium 137 Potassium 4.4 Chloride 102 Carbon Dioxide 24.6 BUN 8 Creatinine 0.67 L BUN/Creatinine Ratio 11.6 Glucose 99 Calcium 8.6 Charges/Coding Visit Charges Office Visits / Consults: [id number] OV L4 New 45min Assessment/Plan Assessment/Plan (1) Venous stasis dermatitis of both lower extremities: CODE(S): I87.2 - Venous insufficiency (chronic) (peripheral) (2) Chronic venous insufficiency: CODE(S): I87.2 - Venous insufficiency (chronic) (peripheral) (3) Lymphedema: CODE(S): I89.0 - Lymphedema, not elsewhere classified (4) Dependent edema: CODE(S): R60.9 - Edema, unspecified (5) Leg edema, right: CODE(S): R60.0 - Localized edema (6) Leg edema, left: CODE(S): R60.0 - Localized edema (7) Right leg swelling: CODE(S): M79.89 - Other specified soft tissue disorders (8) Left leg swelling: CODE(S): M79.89 - Other specified soft tissue disorders (9) Morbid obesity: CODE(S): E66.01 - Morbid (severe) obesity due to excess calories (10) DDD (degenerative disc disease), lumbosacral: CODE(S): M51.37 - Other intervertebral disc degeneration, lumbosacral region (11) History of cellulitis: CODE(S): Z87.2 - Personal history of diseases of the skin and subcutaneoustissue (12) Osteoarthritis: (13) Status post bilateral knee replacements: CODE(S): Z96.653 - Presence of artificial knee joint, bilateral (14) Status post bilateral hip replacements: CODE(S): Z96.643 - Presence of artificial hip joint, bilateral PLAN: Plan This is a 63-year-old morbidly obese female who presented with severe swelling, edema, lymphedema in her lower extremities, as well as severe venous stasis skinchanges in her lower extremities. The right lower extremity is more severely affected. Manifestations include venous stasis dermatitis, hyperpigmentation, and lipodermatosclerosis. Cellulitis is not currently suspected. The patient is not active. 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 The swelling and edema in the patient's lower extremities is chronic in nature, and recently getting worse. A lengthy discussion has been undertaken with the patient regarding the conservative measures appropriate to the management of her lower extremity swelling and edema. Leg elevation has been encouraged. Elevation is to be to heart level, or higher, as much as possible. She has been encouraged to continue sleeping on a flat mattress at night. Her legs are to be elevated during daytime hours as well, as much as possible. Prolonged idle sittinghas been discouraged. Activity/ambulation has been encouraged. Weight loss has also been discussed,and arrangements are to be made for the patient to undergo a dietary consultation. Recent laboratory results have been reviewed. Vascularstudies have been scheduled, and are due to be performed in the near future. Punch biopsies have been recently obtained, the results of which are pending. We are to implement compression to the lower extremities bilaterally. An Unna compression wrap is to be applied to the right lower extremity, and will be changed twice weekly. A Tubigrip compression sleeve will be applied to the leftlower extremity, and will be donned by the patient on a daily basis. The patient is to return in 1 week for reevaluation. Total time: 48 minutes 11/25/24 1317 Cosigner Signature (if applicable): CC: ~ Signed [facility]08-25-2025 History and physical note Author Miguel Angel Vargas [facility] Note Date/Time November 14, 2024 11 :06am [facility] [address] [place] [address] H&P Exam - Wound Care 11/14/24 1056 MR#: [id number] Acct: [id number] Name: MEGHA CIFUENTES Rep #:[id number] : 1960 63 From: Miguel Angel Vargas MD PCP: Dr. Ty Narayanan MD Status:RE G RCR Location: History of Present Illness Date of Service: 11/14/24 Chief Complaint: Bilateral lower extremity swelling and edema, right greater than left History of Wound: Megha Cifuentes is a 63-year-old female presenting with bilateral lower extremity swelling and a presumed right posterior leg venous stasis ulcer. The patient has a history of bilateral knee and hip replacements, with the rightleg being consistently larger due to multiple surgeries, [...] Patient presented to the emergency department at [facility] on 09 November 2024 for the presumed right lower extremity venous stasis ulcer in thesetting of seeing maggots coming in and out [...] has stable vital signs and reports that therehave not been any maggots coming in and out of the wound since her visit to the emergency department. She does not currently have a consistent primary care provider. ROS: - Cardiovascular: Reports bilateral lower extremity swelling. Denies chest pain. - Respiratory: Reports shortness of breath over the past couple of weeks. Deniescough or wheezing. - General: Denies fever or chills. Attestation: Documentation on this patient encounter was supported using ambient scribe technology/ voice AI technology. The patient consented to recording for the purpose of documenting the encounter. Provider reviewed content of the generatednote prior to signature. [facility] Medical History Wears dentures Alcohol use Arthritis [...] edema on lower extremities, 2+ dorsalis pedis pulsesbilaterally, chronic lymphedema changes on distal right leg, 10 x 10 cm venous stasis ulcer on right leg. No discrete fluid collections/abscess and no real induration/cellulitis - General: No fever, temperature 96.1?F Resp normal respiratory effort Auscultation: clear to auscultation bilaterally and other no crackles or signs of fluid at the lung bases Cardio regular rate and regular rhythm Heart Sounds: S1 normal and S2 normal Debridement Note Debridement Note No debridement was completed: No debridement was completed today Post-Debridement Measurements and Additional Note: Post-Debridement Measurements/Treatment - Nurse 1 - General Ulcer Assessment Start: 11/14/24 10:01 Freq: Status: Active Protocol: WC.LOWLISSYT Activity Type Activity Date Activity User E-sign Co-sign Detail Recorded Client Recorded Date Recorded By Document 11/14/24 10:01 [id number] 11/14/24 10:15 11/14/24 10:01 - Today's Visit Information Type of service Initial Visit Arrival Mode Ambulatory Patient Identification Verified (Name & Yes ) Height and Weight Height 5 ft 10 in Weight 370 lb Weight in Pounds 370.0 lbs Weight Measurement Method Estimated by Patient Body Mass Index (BMI) 53.1 BMI Classification Obese Vital Signs Temperature (97.8 F-99.1 F) 96.1 F L Temperature Source Temporal Pulse Rate (60-100) 84 Pulse Location Monitor Respiratory Rate (12-18) 18 Respiratory rate source Observation Oxygen Delivery Method Room Air Blood Pressure (90/60-120/80) 146/94 H Blood Pressure Mean 111 Source Monitor Position Sitting Blood Pressure Location Right Forearm History Since Last Visit- (Skip if this is Patient's initial visit) Left Footwear Regular Shoe Right Footwear Regular Shoe Pain Scale: 0-10 Numeric Is Patient Pain Free? Yes Communication Assessment Preferred language Russian Reproduction Specialist Required No Able to Read Yes Able to Write Yes Communication Tools None Caregiver Communication Skills No Impairment Impairment Right Hearing Abillity Normal Left Hearing Abillity Normal Visual Assistive Devices Glasses Teaching Assessment Preferences Verbal,Written, Demonstration Barriers to Learning None Readiness To Learn Excellent Willingness to Engage in Self Management High Activies Readiness to Engage in Self Management High Activities Anxiety Level Calm Cooperation Cooperative Perception Coherent Interest in Health Problem Asks Questions Education Importance Acknowledges Need Does Patient Smoke tobacco or other No substances Smoking Status Never smoker Is Patient Diabetic No Functional Assessment Recent Decline in Ability to Perform Denies Any Declines Culture/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 Chemical Processing Technician to contact place of taoist No WC - Nurse 1 - General Ulcer Measurement Start: 11/14/24 10:01 Freq: Status: Active Protocol: Activity Type Activity Date Activity User E-sign Co-sign Detail Recorded Client Recorded Date Recorded By Document 11/14/24 10:01 NIDA [id number] 11/14/24 10:15 KW 11/14/24 10:01 Wound Center Nurse 1 Right Calf (cm) 68.5 Right Ankle (cm) 42.5 Left Calf (cm) 65 Left Ankle (cm) 42.5 WC - Nurse 2 - General Ulcer CM Notes Start: 11/14/24 10:01 Freq: Status: Active Protocol: Activity Type Activity Date Activity User E-sign Co-sign Detail Recorded Client Recorded Date Recorded By Document 11/14/24 10:34 DIVYA [id number] 11/14/24 10:40 JF Document 11/14/24 10:53 JF [id number] 11/14/24 10:54 JF 11/14/24 11/14/24 10:34 10:53 Pain Scale: 0-10 Numeric Is Patient Pain Free? Yes Yes Charges/Coding Visit Charges Office Visits / Consults: 76148 OV L3 New 30min Multi Select Codes Integumentary Integumentary CPT Codes: 35706 Punch bx skin single lesion Assessment/Plan Assessment/Plan (1) Leg wound, right: CODE(S): S81.801A - Unspecified open wound, right lower leg, initial encounter PLAN: Plan for ankle-brachial indices (ABIs) (cannot recommend compression untilwe better assess lower extremity inflow), venous duplex ultrasonography (bilateral lower extremity), CMP, prealbumin, and A1c. Biopsies were performed today of the wound (to rule out squamous cell carcinoma) 2 to 3 mm punch biopsies were taken in 2 separate locations proximal and distal on the wound, and were sent separately to pathology. The area was anesthetized with an alcohol swab and 7 cc of 1% lidocaine with 1-200,000 epinephrine was injected in 2 different locations. The punches were obtained and sent in formalin. Hemostasis was obtained with silver nitrate and pressure, as well as the epinephrine from the local anesthesia. We will follow-up biopsy results For dressing changes we will provide iKoael Ag daily for dressing changes. Follow-up next week with Dr. Kadi Livingston as I will be out of town. PLAN: Plan My official recommendation from today's visit was to go to the emergency department. This was communicated clearly to the patient. I believe her swelling is to profound and she needs admission for potential diuresis, especially in the setting of recent shortness of breath and recent weight gain. She is resistant to this option and declined at this time as she would like to go back to her job this afternoon. I talked her about the risks, benefits, and alternatives to going to the emergency department. Instead she has agreed to go to an mobile home servicer. I am referring her to [facility] for an urgent consultation. 11/14/24 1106 <Electronically signed by Miguel Angel Vragas MD> Cosigner Signature (if applicable): CC: ~ Signed [facility] Work Phone: 1(244) 919-193008-25-2025 Evaluation note* Diagnosis Onset Date Resolution Status Admit Date Leg wound, right acute October 222024 9:58am [facility] Work Phone: 1(910) 266-417408-25-2025 Evaluation note* Diagnosis Onset Date Resolution Status Admit Date Leg wound, right acute October 222024 9:58am DDD (degenerative disc disea se), lumbosacral acute December 20, 2024 10:30am Dependent edema acute December 20, 2024 10:30am Left leg swelling acute Septemb er 2024 10:30am Leg edema, left acute December 20, 2024 10:30am Leg edema, right acute Septembe r 2024 10:30am Lipodermatosclerosis acute Sept ember 2024 10:30am Lymphedema acute November 10:30am Right leg swelling acute Septem ubaldo 2024 10:30am Venous stasis dermatitis of both lower extremities acute November 10:30am Chronic venous insufficiency chronic December 20, 2024 10:30am History of cellulitis chronic Sep 2024 10:30am Morbid obesity chronic December 20, 2024 10:30am Osteoarthritis chronic December 20, 2024 10:30am Status post bilateral hip replacements chronic December 20, 2024 10:30am Status post bilateral knee replacements chronic December 20, 2024 10:30am [facility] Work Phone: [phone]) 925-599608-25-2025 Evaluation note* Diagnosis Onset Date Resolution Status Admit Date Leg wound, right acute October 222024 9:58am DDD (degenerative disc disea se), lumbosacral acute December 20, 2024 10:30am Dependent edema acute December 20, 2024 10:30am Left leg swelling acute Septemb er 2024 10:30am Leg edema, left acute December 20, 2024 10:30am Leg edema, right acute Septembe r 2024 10:30am Lipodermatosclerosis acute Sept ember 2024 10:30am Lymphedema acute November 10:30am Right leg swelling acute Septem ubaldo 2024 10:30am Venous stasis dermatitis of both lower extremities acute November 10:30am Chronic venous insufficiency chronic December 20, 2024 10:30am History of cellulitis chronic Sep ber 2024 10:30am Morbid obesity chronic December 20, 2024 10:30am Osteoarthritis chronic December 20, 2024 10:30am Status post bilateral hip replacements chronic December 20, 2024 10:30am Status post bilateral knee replacements chronic December 20, 2024 10:30am DDD (degenerative disc disea se), lumbosacral acute December 27 10:15am Dependent edema acute December 272024 10:15am Left leg swelling acute December 27, 2024 10:15am Leg edema, left acute December 272024 10:15am Leg edema, right acute December 27, 2024 10:15am Lipodermatosclerosis acute Octo ubaldo 2024 10:15am Lymphedema acute December 27 10:15am Right leg swelling acute Octobe r 2024 10:15am Venous stasis dermatitis of both lower extremities acute December 27 10:15am Chronic venous insufficiency chronic December 27, 2024 10:15am History of cellulitis chronic Dec luisa 2024 10:15am Morbid obesity chronic December h2024 10:15am Osteoarthritis chronic December 10:15am Status post bilateral hip replacements chronic December 27 10:15am Status post bilateral knee replacements chronic December 27 10:15am [facility] Work Phone: 1([phone]) 669-190508-25-2025 History and physical note [facility] [address] [place] [address] H&P Exam - Wound Care 11/14/24 1056 MR#: [id number] Acct: [id number] Name: MEGHA CIFUENTES Rep #:[id number] : 1960 63 From: Miguel Angel Vargas MD PCP: Dr. Ty Narayanan MD Status:RE G RCR Location: History of Present Illness Date of Service: 11/14/24 Chief Complaint: Bilateral lower extremity swelling and edema, right greater than left History of Wound: Megha Cifuentes is a 63-year-old female presenting with bilateral lower extremity swelling and a presumed right posterior leg venous stasis ulcer. The patient has a history of bilateral knee and hip replacements, with the rightleg being consistently larger due to multiple surgeries, including a hip, three knee, and an ankle surgery. She experienced a significant increase in swelling in both legs a couple of weeks ago, accompanied by a weight gain of 10 pounds within a week. The patient has been experiencing shortness of breath over the past couple of weeks, which has rachel new development. The patient has not been taking any diuretics and has not experienced fever or chills. She has beenadvised to consider a water pill to manage the fluid retention. Patient presented to the emergency department at [facility] on 09 November 2024 for the presumed right lower extremity venous stasis ulcer in thesetting of seeing maggots coming in and out [...] has stable vital signs and reports that therehave not been any maggots coming in and out of the wound since her visit to the emergency department. She does not currently have a consistent primary care provider. ROS: - Cardiovascular: Reports bilateral lower extremity swelling. Denies chest pain. - Respiratory: Reports shortness of breath over the past couple of weeks. Deniescough or wheezing. - General: Denies fever or chills. Attestation: Documentation on this patient encounter was supported using ambient scribe technology/ voice AI technology. The patient consented to recording for the purpose of documenting the encounter. Provider reviewed content of the generatednote prior to signature. [facility] Medical History Wears dentures Alcohol use Arthritis [...] edema on lower extremities, 2+ dorsalis pedis pulsesbilaterally, chronic lymphedema changes on distal right leg, 10 x 10 cm venous stasis ulcer on right leg. No discrete fluid collections/abscess and no real induration/cellulitis - General: No fever, temperature 96.1?F Resp normal respiratory effort Auscultation: clear to auscultation bilaterally and other no crackles or signs of fluid at the lungbases Cardio regular rate and regular rhythm Heart Sounds: S1 normal and S2 normal Debridement Note Debridement Note No debridement was completed: No debridement was completed today Post-Debridement Measurements and Additional Note: Post-Debridement Measurements/Treatment - Nurse 1 - General Ulcer Assessment Start: 11/14/24 10:01 Freq: Status: Active Protocol: SHIVA.KAMI Activity Type Activity Date Activity User E-sign Co-sign Detail Recorded Client Recorded Date Recorded By Document 11/14/24 10:01 KW [id number] 11/14/24 10:15 KW 11/14/24 10:01 - Today's Visit Information Type of service Initial Visit Arrival Mode Ambulatory Patient Identification Verified (Name & Yes ) Height and Weight Height 5 ft 10 in Weight 370 lb Weight in Pounds 370.0 lbs Weight Measurement Method Estimated by Patient Body Mass Index (BMI) 53.1 BMI Classification Obese Vital Signs Temperature (97.8 F-99.1 F) 96.1 F L Temperature Source Temporal Pulse Rate (60-100) 84 Pulse Location Monitor Respiratory Rate (12-18) 18 Respiratory rate source Observation Oxygen Delivery Method Room Air Blood Pressure (90/60-120/80) 146/94 H Blood Pressure Mean 111 Source Monitor Position Sitting Blood Pressure Location Right Forearm History Since Last Visit- (Skip if this is Patient's initial visit) Left Footwear Regular Shoe Right Footwear Regular Shoe Pain Scale: 0-10 Numeric Is Patient Pain Free? Yes Communication Assessment Preferred language Russian Reproduction Specialist Required No Able to Read Yes Able to Write Yes Communication Tools None Caregiver Communication Skills No Impairment Impairment Right Hearing Abillity Normal Left Hearing Abillity Normal Visual Assistive Devices Glasses Teaching Assessment Preferences Verbal,Written, Demonstration Barriers to Learning None Readiness To Learn Excellent Willingness to Engage in Self Management High Activies Readiness to Engage in Self Management High Activities Anxiety Level Calm Cooperation Cooperative Perception Coherent Interest in Health Problem Asks Questions Education Importance Acknowledges Need Does Patient Smoke tobacco or other No substances Smoking Status Never smoker Is Patient Diabetic No Functional Assessment Recent Decline in Ability to Perform Denies Any Declines Culture/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 Chemical Processing Technician to contact place of taoist No WC - Nurse 1 - General Ulcer Measurement Start: 11/14/24 10:01 Freq: Status: Active Protocol: Activity Type Activity Date Activity User E-sign Co-sign Detail Recorded Client Recorded Date Recorded By Document 11/14/24 10:01 NIDA [id number] 11/14/24 10:15 KW 11/14/24 10:01 Wound Center Nurse 1 Right Calf (cm) 68.5 Right Ankle (cm) 42.5 Left Calf (cm) 65 Left Ankle (cm) 42.5 WC - Nurse 2 - General Ulcer CM Notes Start: 11/14/24 10:01 Freq: Status: Active Protocol: Activity Type Activity Date Activity User E-sign Co-sign Detail Recorded Client Recorded Date Recorded By Document 11/14/24 10:34 DIVYA [id number] 11/14/24 10:40 JF Document 11/14/24 10:53 DIVYA [id number] 11/14/24 10:54 JF 11/14/24 11/14/24 10:34 10:53 Pain Scale: 0-10 Numeric Is Patient Pain Free? Yes Yes Charges/Coding Visit Charges Office Visits / Consults: 31962 OV L3 New 30min Multi Select Codes Integumentary Integumentary CPT Codes: 59446 Punch bx skin single lesion Assessment/Plan Assessment/Plan (1) Leg wound, right: CODE(S): S81.801A - Unspecified open wound, right lower leg, initial encounter PLAN: Plan for ankle-brachial indices (ABIs) (cannot recommend compression untilwe better assess lower extremity inflow), venous duplex ultrasonography (bilateral lower extremity), CMP, prealbumin, and A1c. Biopsies were performed today of the wound (to rule out squamous cell carcinoma) 2 to 3 mm punch biopsies were taken in 2 separate locations proximal and distal on the wound, and were sent separately to pathology. The area was anesthetized with an alcohol swab and 7 cc of 1% lidocaine with 1- 200,000 epinephrine was injected in 2 different locations. The punches were obtained and sent in formalin. Hemostasis was obtained with silver nitrate and pressure, as well as the epinephrine from the local anesthesia. We will follow-up biopsy results For dressing changes we will provide Velocomp Ag daily for dressing changes. Follow-up next week with Dr. Kadi Livingston as I will be out of town. PLAN: Plan My official recommendation from today's visit was to go to the emergency department. This was communicated clearly to the patient. I believe her swelling is to profound and she needs admission for potential diuresis, especially inthe setting of recent shortness of breath and recent weight gain. She is resistant to this option and declined at this time as she would like to go back to her job this afternoon. I talked her about the risks, benefits, and alternatives to going to the emergency department. Instead she has agreed to go to an mobile home servicer. I am referring her to [facility] for an urgent consultation. 11/14/24 1106 Cosigner Signature (if applicable): CC: ~ Signed [facility]08-20-2025 Discharge summary [facility] Medical Records Department [address] [place] [address] Emergency Department Summary 11/09/24 MR#: [id number] Acct: [id number] Name: VANEMEGHA ELAINE Rep #:[id number] : 1960 63 From: Philomena Zhu MD [...] Denies fever, chills, nausea, vomiting. Denies chest painor SOB. States that she has been working and ambulating fine. States she feels well. PFSH PFSH Medical History Wears dentures Alcohol use Arthritis [...] 78.3 H Lymph % (Auto) 10.9 L Zavala % (Auto) 8.4 Eos % (Auto) 1.7 [...] immediately if your symptoms worsen or new symptomsdevelop. Print Language: Russian Disposition Disposition: Home, Self Care What to do if you have Problems For any increased pain, shortness of breath, bleeding, nausea or vomiting, chestpain, or any unexpected problems, contact your Primary Care Provider. Call [facility] ([phone]) or report tothe closest Emergency Room. Call 911 if necessary. 11/09/24 1513 Cosigner Signature (if applicable): CC: Dr. Ty Narayanan MD ~ Signed [facility]08-20-2025 Discharge summary Author Philomena Zhu [facility] Note Date/Time November 09, 2024 3: 13pm [facility] Medical Records Department [address] [place] [address] Emergency Department Summary 11/09/24 MR#: [id number] Acct: [id number] Name: MEGHA CIFUENTES Rep #:[id number] : 1960 63 From: Philomena Zhu MD [...] and ambulating fine. States she feels well. [facility] Medical History Wears dentures Alcohol use Arthritis [...] 78.3 H Lymph % (Auto) 10.9 L Zavala % (Auto) 8.4 Eos % (Auto) 1.7 [...] worsen or new symptoms develop. Print Language: Russian Disposition Disposition: Home, Self Care What to do if you have Problems For any increased pain, shortness of breath, bleeding, nausea or vomiting, chestpain, or any unexpected problems, contact your Primary Care Provider. Call [facility] ([phone]) or report to the closest Emergency Room. Call 911 if necessary. 11/09/24 1513 <Electronically signed by Philomena Zhu MD> Cosigner Signature (if applicable): CC: Dr. Ty Narayanan MD ~ Signed [facility] Work Phone: 1([phone]) 426-974608-15-2025 Telephone encounter Note* Telephone Encounter - Lizzy Subramanian RN - 11/04/2024 1:31 PM EDT Patient notified of provider's instructions. Patient verbalizes understanding. Lizzy Subramanian RN [facility]08-15-2025 Miscellaneous Notes* Telephone Encounter - Lizzy [...] Patient states that she had talked to [facility] about this and was told that [...] at. Lizzy Subramanian RN [facility] Telephone encounter Note * Telephone Encounter - Raghu Nuñez APRN.CNP - 11/04/2024 1:24 PM EDT Potentially could be a blood clot. Needs evaluated. Can go to the ER if insurance is an issue. Raghu Nuñze APRN.CNP [facility] Work Phone: [phone] [id number] Telephone encounter Note* Telephone Encounter - Lizzy Subramanian RN - 11/04/2024 12:56 PM EDT Patient calls and states that her right leg is swollen and it is seeping clear fluid. Patient states that she had talked to [facility] about this and was told that [...] have it looked at. Lizzy Subramanian RN [facility]02-12-2025 Instructions* Patient Instructions* Bronwyn Solo APRN.CNP [...] D Due for Pap, consult placed for ICING AND GLAZE MAKER Cologuard stool kit will be mailed Follow up in 1 month documented in this encounterAvita [facility]02-[facility] History of Present illness Narrative* Bronwyn [...] mouth once daily. COMPOUNDED PRESCRIPTION [facility] E0651/Segmental Compressor [facility] E067/ Leg Appliance Dx: Lymphedema I89.0 Right Lower Extremity Lifetime Usage (Patient not taking: Reported on 04/06/2023) No current facility-administered medications for this visit. FAMILY HISTORY Problem Relation Age of Onset Coronary Artery Disease Father age 67 from [place] Thyroid Mother Social History Tobacco Use Smoking [...] cancer - ICD9: V76.12, ICD10: Z12.31 - LEONIE SCREENING W STEVEN 13. Screening for colon [...] discussed and patient voices understanding. Bronwyn Solo APRN.CNP This note was partially generated using [employer] voice recognition system. Note was reviewed for accuracy. There may be minor misspellings or grammar miscues with [employer] voice recognition. documented in this encounterAvita Health [facility]02-12-2025 NoteHNO ID: [id number] Author: BRONWYN SOLO APRN.CNP Service: ? Author [...] 24 hr tablet Take (more content not included)...[facility]01-29-2025 Telephone encounter Note* Telephone Encounter - Bronwyn [...] was identified. 04/20/2024 by Bronwyn Solo APRN.CNP [facility]01-29-2025 Miscellaneous Notes* Telephone Encounter - Bronwyn Solo APRN.CNP - [...] 20, 2024 10:19 AM documented in this encounterCleveland [id number] Telephone encounter Note * Telephone Encounter - [...] Yadav LPN April 20, 2024 10:19 AM [facility]11-07-2024 Telephone encounter Note* Telephone Encounter - Ty Narayanan MD - 01/28/2024 2:14 PM EST OK to refill as ordered Ty Narayanan MD [facility]11-07-2024 Miscellaneous Notes* Telephone Encounter - Ty [...] 28, 2024 1:35 PM documented in this encounterAvita Health System [facility]11-07-2024 Telephone encounter Note * Telephone Encounter [...] Trevino RN January 28, 2024 1:35 PM [facility]10-07-2024 Telephone encounter Note* Telephone Encounter - [...] Yadav LPN December 28, 2023 4:37 PM [facility]10-07-2024 Miscellaneous Notes* Telephone Encounter - Amalia [...] 28, 2023 4:37 PM documented in this encounterAvita Health System [facility]09-25-2024 Telephone encounter Note * Telephone Encounter [...] leave a detailed message. 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 * Telephone Encounter - Ashley Melvin RN - 12/11/2023 11:40 AM EDT Last OV 11/04/22 with RR.. Advised Pt she is overdue for annual/and in need of pap per last OV with RR. Pt requesting refill on Megace. Pt's insurance is out of network and Pt states she is not working and cannot afford to come in. Will send Voolgo message informing her she needs to call her insurance to find out who is covered under her insurance. Please address in RR absence. Requested Prescriptions Pending Prescriptions Disp Refills megestrol (MEGACE) 20 mg tablet 30 tablet 4 Sig: Take 1 tablet (20 mg) by mouth once daily. Ashley Melvin RN documented in this encounterAvita Health System [facility]09-25-2024 Telephone encounter Note * Telephone Encounter [...] in the office for over one year. [facility]09-24-2024 Telephone encounter Note* Telephone Encounter - [...] to the office tomorrow. Tori Salazar RN [facility]09-24-2024 Telephone encounter Note* Telephone Encounter - Ashley Melvin RN - 12/15/2023 10:01 AM EDT Left message for patient to call office. 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 [facility] Work Phone: 1(360) 307-587909-20-2024 Telephone encounter Note* Telephone Encounter - Ashley Melvin RN - 12/11/2023 11:40 AM EDT Last OV 11/04/22 with RR.. Advised Pt she is overdue for annual/and in need of pap per last OV with RR. Pt requesting refill on Megace. Pt's insurance is out of network and Pt states she is not working and cannot afford to come in. Will send Voolgo message informing her she needs to call her insurance to find out who is covered under her insurance. Please address in RR absence. Requested Prescriptions Pending Prescriptions Disp Refills megestrol (MEGACE) 20 mg tablet 30 tablet 4 Sig: Take 1 tablet (20 mg) by mouth once daily. Ashley Melvin, RN [facility]08-02-2024 Telephone encounter Note* Telephone Encounter - Chrissie Roca LPN - 10/23/2023 4:16 PM EDT Pt. informed. [facility] Work Phone: 1(835) 350-979208-02-2024 Miscellaneous Notes* Telephone Encounter - Chrissie Roca [...] 04-06-23 Next ov: none documented in this encounterAvita Health System [facility]08-02-2024 Telephone encounter Note * Telephone Encounter - Dhara Damon MA - 10/23/2023 4:13 PM EDT Called and left message on patients voicemail to return call to the office and ask to speak with a FM triage nurse. Dhara Damon MA [facility]08-01-2024 Telephone encounter Note* Telephone Encounter - Alexandra Waller LPN - 10/22/2023 11:33 AM EDT Left message to call office. 10/22/2023 11:33 AM. Alexandra Waller LPN [facility]08-01-2024 Telephone encounter Note* Telephone Encounter - Ty Narayanan MD - 10/22/2023 10:59 AM EDT OK for 90 day supply as ordered Ty Narayanan MD [facility]07-31-2024 Telephone encounter Note* Telephone Encounter - Yamileth Trevino RN - [...] supply. Last ov: 04-06-23 Next ov: none [facility]05-28-2024 Telephone encounter Note* Telephone Encounter - Maria A Wilson MA - 08/18/2023 10:48 AM EDT Message left notify pt that rx was sent to pharmacy for her. Maria A Wilson MA [facility]05-28-2024 Miscellaneous Notes* Telephone Encounter - Maria [...] would recommend. Please advise. documented in this encounterAvita Health System [facility]05-24-2024 Telephone encounter Note * Telephone Encounter - Maria A Wilson MA - 08/14/2023 3:02 PM EDT Message left for pt to call back. Maria A Wilson MA [facility]05-24-2024 Telephone encounter Note* Telephone Encounter - Ty Narayanan MD - 08/14/2023 2:18 PM EDT OK for Anusol cream as ordered Ty Narayanan MD [facility]05-24-2024 Telephone encounter Note* Telephone Encounter - Tiffanie Jimenez LPN - 08/14/2023 12:19 PM EDT Patient calling, states that she has been having trouble with a hemorrhoid. She has been using OTC ointment but it is not helping. Patient is not able to afford an appointment right now and is askingwhat PCP would recommend. Please advise. [facility]05-07-2024 Telephone encounter Note* Telephone Encounter - Ty Narayanan MD - 07/28/2023 11:38 AM EDT OK to refill as ordered Ty Narayanan MD [facility]05-07-2024 Miscellaneous Notes* Telephone Encounter - Ty [...] you. Mattie Ferrara LPN. documented in this encounterAvita Health System [facility]05-07-2024 Telephone encounter Note * Telephone Encounter - Mattie Ferrara LPN [...] Please advise. Thank you. Mattie Ferrara LPN. [facility]04-24-2024 Telephone encounter Note* Telephone Encounter - [...] found Please advise. Thank you. Jeramie Parsons. [facility]04-24-2024 Miscellaneous Notes* Telephone Encounter - Jeramie [...] Thank you. Jeramie Parsons. documented in this encounterAvita Health System [facility]11-28-2023 Miscellaneous Notes* Telephone Encounter - Mita [...] controls bleeding. Does she want to see [facility] for possible surgery for hysterectomy for persistent [...] tomorrow. Tori Salazar RN documented in this encounterAvita Health System [facility]10-30-2023 Miscellaneous Notes* Telephone Encounter - Tori [...] note. Dinora Castillo RN documented in this encounterAvita Health System [facility]10-25-2023 Miscellaneous Notes* Telephone Encounter - Ellen Kovacs RN - 01/14/2023 4:14 PM EDT Patient notified. Ellen Kovacs RN * Telephone Encounter - Morelia Perez LPN - 01/13/2023 5:06 PM EDT Left message to call office * Telephone Encounter - Linda Rodriguez MD - 01/13/2023 3:23 PM EDT Noted- that is ok so long as not heavy. * Telephone Encounter - Tori Salazar RN - 01/13/2023 3:15 PM EDT Patient had a Hysteroscopy D&C at [facility] on 11/14/22. Calling today to report that she started spotting/bleeding. Taking Provera once a day since it was prescribed on 12/30. Bleeding is bright red incolor and happening every day. Needing to wear a pad/liner. Yesterday she had left side sharp pelvic pain. Denies pain today. Tori Salazar RN documented in this encounterAvita Health System [facility]08-25-2023 Discharge summary Author Yamileth gutierrez [facility] November 14, 2022 9:14am Note Date/Time November 14, 2022 8: 45am [facility] Medical Records Department [address] [place] [address] Instructions for Home/Discharge Instructions 11/14/22 0844 MR#: [id number] Acct: [id number] Name: MEGHA CIFUENTES Rep #:[id number] : 1960 61 From: Linda Carcamo MD PCP: Dr. Ty Narayanan MD Status:[facility] Discharge Instructions Diet Discharge Diet: No restrictions [...] if you need an appointment please call [phone] Test Results: Test results from this visit [...] CC: Dr. Ty Narayanan MD ~ Signed [facility] Work Phone: 1(536) 687-610408-25-2023 History and physical note Author Yamileth gutierrez [facility] November 14, 2022 8:31am Note Date/Time November 05, 2022 12 :48pm [facility] Medical Records Department [address] [place] [id number] History & Physical Exam 11/05/22 1248 MR#: [id number] Acct: [id number] Name: MEGHA CIFUENTES Rep #:[id number] : 1960 61 From: Carolina Galloway MD PCP: Dr. Ty Narayanan MD Status:[facility] Location: [place] [address] History and Physical Date of Admission: 11/14/22 [...] ? ? ? COMPOUNDED PRESCRIPTION [facility] E0651/Segmental Compressor [facility] E067/ Leg Appliance ? Dx: Lymphedema I89.0 [...] Disease Father ? ? age 67 from [place] ? Thyroid Mother ? ? ? REVIEW [...] Cherry MD> Cosigner Signature (if applicable): cc: M Dr. Linda Cherry; Dr. Ty Narayanan MD; Dr. Carolina Galloway MD ~* Signed [facility] Work Phone: 1(189) 221-179208-25-2023 Procedure [facility] 11-04-2022 History of Present illness Narrative* Carolina [...] so changed to motrin. No other new furniture mover driver c/o today. OB History T0 L2 SAB0 IAB0 Ectopic0 Multiple0 Live Births0 Linotypist History LMP: 06/04/2018 (Approximate), Perimenopausal Age at Menarche: Age at First : Age at Menopause: Linotypist History Comments: Sexual Activity: Not Currently; Male Contraception: Tubal Ligation PAST MEDICAL HISTORY Diagnosis Date Abdominal pain, other specified site Depression Diarrhea Fracture, fibula 04/21/2015 mildly displaced spiral right fibula GERD (gastroesophageal reflux disease) Hip arthritis 01/08/2011 Lumbar degenerative disc disease 01/06/2012 Major depressive disorder, recurrent episode, moderate ([facility]) 01/18/2019 Tennis elbow Venous insufficiency of both [...] DIAG UNI 02/20/2009 PAST SURGICAL HISTORY OF 5/08 hernia repair PICC LINE INSERT/CONSULT 05/15/2014 S $ KNEE REVISION Right 07/2014 FAMILY HISTORY Problem Relation Age of Onset Coronary Artery Disease Father age 67 from [place] Thyroid Mother Social History Tobacco Use Smoking [...] mouth once daily. COMPOUNDED PRESCRIPTION [facility] E0651/Segmental Compressor [facility] E067/ Leg Appliance Dx: Lymphedema I89.0 Right [...] smear. Carolina Galloway MD documented in this encounterAvita Health [facility]08-15-2023 History and physical note * Carolina [...] mouth once daily. COMPOUNDED PRESCRIPTION [facility] E0651/Segmental Compressor [facility] E067/ Leg Appliance Dx: Lymphedema I89.0 Right [...] Coronary Artery Disease Father age 67 from [place] Thyroid Mother REVIEW OF SYMPTOMS: GENERAL: denies [...] allergies Carolina Galloway M.D. documented in this encounterAvita Health [facility]08-11-2023 Miscellaneous Notes* Telephone Encounter - Ellen [...] room. Ellen Kovacs RN documented in this encounterAvita Health System [facility]06-20-2023 History and physical note * Linda [...] mouth once daily. COMPOUNDED PRESCRIPTION [facility] E0651/Segmental Compressor [facility] E067/ Leg Appliance Dx: Lymphedema I89.0 Right [...] Coronary Artery Disease Father age 67 from [place] Thyroid Mother REVIEW OF SYMPTOMS: negative except [...] allergies Linda Carcamo MD documented in this encounterAvita [facility]06-20-2023 History of Present illness Narrative* Linda Carcamo MD - 09/09/2022 12:32 PM EDT documented in this encounterAvita Health System [facility]06-17-2023 Miscellaneous Notes* Telephone Encounter - Lori Hernández - 09/06/2022 12:25 PM EDT OON referral placed for review * Telephone Encounter - Marjorie Soni RN - 09/04/2022 2:48 PM EDT Patient needs scheduled for over due 6 month follow up and medication refill. Needs referral. Please call [phone] once appointment approved. Thank You, Marjorie Soni RN documented in this encounterAvita Health [facility]06-15-2023 Miscellaneous Notes* Telephone Encounter - Ty [...] you. Marjorie Soni RN documented in this encounterAvita Health [facility]06-02-2023 Miscellaneous Notes* Telephone Encounter - Maria A Wilson Ma - 08/22/2022 1:15 PM EDT Office received fax from [facility] provider signature prescription of E0651 Pneumatic Compression device. Form was faxed back to [employer] due to it having all of Dr. Lizzette Crowder's information on it rather than pt new PCP, Dr. Narayanan. Advised on form that Dr. Crowder has retired and to send new form with Dr. Narayanan's info on it. Maria A Wilson Ma documented in this encounterAvita Health [facility]05-09-2023 Miscellaneous Notes* Telephone Encounter - Morelia Perez LPN - 07/29/2022 1:45 PM EDT Patient prefers 09/26/2022 * Telephone Encounter - Mita Lambert RN - 07/25/2022 3:42 PM EDT Spoke with patient in regards to surgery. Not able to do 08/07, would like to be called with other options for dates. Aware patient scheduler will be in contact with her. [...] Pt has not recently been active on [facility] so no message sent. Chioma Arteaga LPN * Telephone Encounter - Morelia Perez LPN - 07/10/2022 11:20 AM EDT Attempted to contact patient. No answer. Next available date for surgery with Dr. Carcamo is 08/07/[address] Carcamo. Patient will need a pre-operative appointment documented in this encounterAvita Health [facility]04-14-2023 History of Present illness Narrative* Linda [...] patient of results in 1-2 weeks. Linda Chrery MD * Linda Carcamo MD - 07/04/2022 9:03 AM EDT [employer] offered: Patient declines. Megha Cifuentes is a [...] L2 SAB0 IAB0 Ectopic0 Multiple0 Live Births0 Linotypist History LMP: 06/04/2018 (Approximate), Perimenopausal Age at Menarche: Age at First : Age at Menopause: Linotypist History Comments: Sexual Activity: Not Currently; Male [...] Coronary Artery Disease Father age 67 from [place] Thyroid Mother Social History Tobacco Use Smoking [...] mouth once daily. COMPOUNDED PRESCRIPTION [facility] E0651/Segmental Compressor [facility] E067/ Leg Appliance Dx: Lymphedema I89.0 Right [...] external genitalia normal, normal Bartholin's glands, urethra, [place]'s glands, no vulvar lesions, no cervical lesions, good vaginal support, normal appearing perineal body and perianal region, moderate amt of blood in vault. NEURO: alert and oriented x3,exam grossly non-focal EXTREMITIES: edema ASSESSMENT AND PLAN: Encounter Diagnosis ICD-10-CM 1. PMB (postmenopausal bleeding) N95.0 PELVIC [facility] ENDOMETRIAL BIOPSY SURGICAL PATHOLOGY 2. Endometrial hyperplasia N85.00 3. Class 3 severe obesity with body mass index (BMI) of 50.0 to 59.9 in adult, unspecified obesity type, unspecified whether serious comorbidity present ([facility]) E66.01 Z68.43 4. We will [...] Decision Making Level: 4 - Moderate Linda Kris-Carcamo, MD documented in this encounterAvita Health [facility]03-23-2023 Miscellaneous Notes* Telephone Encounter - Ty [...] refills Alexandra Waller LPN documented in this encounterAvita Health System [facility]01-05-2023 Miscellaneous Notes* Telephone Encounter - Tori Camara - 03/27/2022 9:34 AM EST Patient needs to call billing about OON INS. She [place] come [place]. Tori Camara documented in this encounterAvita Health System [facility]11-22-2022 Miscellaneous Notes* Telephone Encounter - Raghu Nuñez APRN.CNP - 02/11/2022 11:01 AM EST PDMP website checked and validated. All prescriptions have been APPROPRIATELY filled. No suspiciousactivity was identified. 02/11/2022 by Raghu Nuñez APRN.SHAISTA The following approved medication requests have been [...] you. Pamela Cespedes LPN documented in this encounterAvita Health System [facility]11-03-2022 Miscellaneous Notes* Telephone Encounter - Sherry [...] you. Bronwyn Solo APRN.CNP documented in this encounterAvita Health System [facility]10-27-2022 Instructions* Patient Instructions* Bronwyn Solo APRN.CNP - 01/16/2022 10:58 AM EDT Get fasting labs completed, no food 8-10 hours prior. May have black coffee and water. Continue to take all medications as prescribed. Follow up in 6 months if needed. documented in this encounterAvita Health System [facility]10-27-2022 History of Present illness Narrative* Bronwyn Solo APRN.CNP - 01/16/2022 10:40 AM EDT This is a 61 year old female who presents today with: Patient presents with: 6 Month Exam HISTORY OF PRESENT ILLNESS: Megha Cifuentes is a 61 year old female. Patient presents with: 6 Month Exam Here in the office for 6-month follow-up. 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 Refers back/knee pain can make ithard [...] mouth once daily. COMPOUNDED PRESCRIPTION [facility] E0651/Segmental Compressor [facility] E067/ Leg Appliance Dx: Lymphedema I89.0 Right Lower Extremity Lifetime Usage No current facility-administered medications for this visit. FAMILY HISTORY Problem Relation Age of Onset Coronary Artery Disease Father age 67 from [place] Thyroid Mother Social History Tobacco Use Smoking [...] discussed and patient voices understanding. Bronwyn Solo APRN.SHAISTA This note was partially generated using [employer] voice recognition system. Note was reviewed for accuracy. There may be minor misspellings or grammar miscues with [employer] voice recognition. documented in this encounterAvita Health System [facility]06-20-2022 Miscellaneous Notes* Telephone Encounter - Nyla [...] pt know that this is ready for clam picker at [facility]. Dhara Damon Ma * Telephone Encounter - [...] states call when completed at will come clam picker. Letter is pending if your agreeable. documented in this encounterAvita Health System [facility]04-01-2022 History of Present illness Narrative* Ty [...] every 8 hours prn. Also can take [id number] mg prn. Taking Levaquin daily for chronic [...] Coronary Artery Disease Father age 67 from [place] Thyroid Mother Patient Allergies ALLERGIES No Known [...] on 04/17/2020 ) COMPOUNDED PRESCRIPTION [facility] E0651/Segmental Compressor [facility] E067/ Leg Appliance Dx: Lymphedema I89.0 Right [...] Past Histories independently gathered by the clinical ground support agent and the remaining scribed note accurately describes [...] Maria A Wilson Ma documented in this encounterAvita Health [facility]02-06-2018 History of Past illness Narrative* Problem [...] of this encounter (statuses as of 06/21/2021) [facility] History of Past illness Narrative* Problem [...] of this encounter (statuses as of 09/09/2021) [facility] History of Past illness Narrative* Problem [...] of this encounter (statuses as of 01/16/2022) [facility] History of Past illness Narrative* Problem [...] of this encounter (statuses as of 01/24/2022) [facility] History of Past illness Narrative* Problem [...] of this encounter (statuses as of 02/11/2022) [facility] History of Past illness Narrative* Problem [...] of this encounter (statuses as of 03/28/2022) [facility] of [facility] illness Narrative* Problem [...] of this encounter (statuses as of 06/12/2022) [facility] of Past illness Narrative* Problem [...] of this encounter (statuses as of 07/04/2022) [facility] of [facility] illness Narrative* Problem [...] of this encounter (statuses as of 07/25/2022) [facility] of [facility] Narrative* Problem [...] of this encounter (statuses as of 07/29/2022) [facility] of [facility] Narrative* Problem [...] of this encounter (statuses as of 08/22/2022) [facility] of [facility] Narrative* Problem [...] of this encounter (statuses as of 09/05/2022) [facility] of [facility] illness Narrative* Problem [...] of this encounter (statuses as of 09/09/2022) [facility] of [facility] Narrative* Problem [...] of this encounter (statuses as of 09/15/2022) [facility] Narrative* Problem [...] of this encounter (statuses as of 09/24/2022) [facility] of [facility] Narrative* Problem [...] of this encounter (statuses as of 11/01/2022) [facility] of [facility] Narrative* Problem [...] of this encounter (statuses as of 11/05/2022) [facility] of [facility] Narrative* Problem [...] of this encounter (statuses as of 01/15/2023) [facility] of [facility] Narrative* Problem [...] of this encounter (statuses as of 01/19/2023) [facility] Narrative* Problem [...] of this encounter (statuses as of 01/29/2023) [facility] of [facility] Narrative* Problem [...] of this encounter (statuses as of 02/17/2023) [facility] note* Diagnosis Major depressive disorder, recurrent episode, moderate (HCC)- Primary Major depressive disorder, recurrent episode, moderate Insomnia, unspecified type Arthritis of both knees Unspecified arthropathy, lower leg documented in this encounter [facility] noteNo assessment information availableWThe [facility] Work Phone: evaluation note* Diagnosis Major depressive disorder, recurrent episode, moderate (HCC)- Primary Major depressive disorder, recurrent episode, moderate Insomnia, unspecified type Arthritis of both knees Unspecified arthropathy, lower leg Vitamin D deficiency Unspecified vitamin D deficiency Screening for diabetes mellitus Screening cholesterol level Screening for lipoid disorders documented in this encounter [facility] note* Diagnosis Insomnia, unspecified type documented in this encounter [facility] note* Diagnosis Onset Date Resolution Status DDD (degenerative disc disease), lumbar acute DDD (degenerative disc disease), lumbosacral acute DDD (degenerative disc disease), lumbar acute DDD (degenerative disc disease), lumbosacral acute Lower back pain acute [facility] Work Phone: evaluation note* Diagnosis Insomnia, unspecified type documented in this encounter [facility] note* Diagnosis PMB (postmenopausal bleeding)- Primary Postmenopausal bleeding Endometrial hyperplasia Endometrial hyperplasia, unspecified Class 3 severe obesity with body mass index (BMI) of 50.0 to 59.9 in adult, unspecified obesity type, unspecified whether serious comorbidity present (HCC) documented in this encounter [facility] note* Diagnosis PMB (postmenopausal bleeding) Postmenopausal bleeding documented in this encounter [facility] note* Diagnosis PMB (postmenopausal bleeding)- Primary Postmenopausal bleeding Endometrial polyp Polyp of corpus uteri Endometrial hyperplasia Endometrial hyperplasia, unspecified documented in this encounter [facility] note* Diagnosis Encounter for screening mammogram for breast cancer documented in this encounter [facility] note* Diagnosis PMB (postmenopausal bleeding)- Primary Postmenopausal bleeding Endometrial polyp Polyp of corpus uteri [facility] Diagnosis Endometrial hyperplasia- Primary Endometrial hyperplasia, unspecified [facility]* Diagnosis Endometrial hyperplasia Endometrial hyperplasia, unspecified [facility]* Diagnosis Insomnia, unspecified type [facility]* Diagnosis Encounter for screening mammogram for breast cancer [facility]* Diagnosis Insomnia, unspecified type [facility]* Diagnosis Endometrial hyperplasia Endometrial hyperplasia, unspecified [facility]* Diagnosis Endometrial hyperplasia Endometrial hyperplasia, unspecified [facility]* Diagnosis Insomnia, unspecified type [facility]* Diagnosis Degeneration of intervertebral disc of lumbar region with discogenic back pain- Primary Insomnia, unspecified type [facility]* Diagnosis Medicare annual wellness visit, subsequent- [...] and behavioral disorders [facility] Additional Inst[facility] Used[facility] Work Phone: Hospital Discharge instructionsAdditional Instructions [...] if your symptoms worsen or new symptoms develop.[facility] Work Phone: Reason for referral (narrative)* Outpatient Procedure (Routine) - Pending Review Specialty Diagnoses / Procedures Referred By Mandyac t Referred To Contact [facility] Diagnoses PMB (postmenopausal bleeding) Procedures ENDOMETRIAL BIOPSY ENDOMETRIAL BX W/WO ENDOCERVIX BX W/O DILAT SPX Linda Rodriguez MD [address] [place] [address] [facility] [address] [place] [address] Referral ID Status Reason Start Date Expiration Date Visits Requested Visits Authorized [id number] Pending Review Auto-Generat ed Referral 07/04/2022 07/04/2023 1 1 * Diagnostic Procedure Only (Routine) - Pending Review Specialty Diagnoses / Procedures Referred By June t Referred To Contact [facility] Diagnoses PMB (postmenopausal bleeding) Procedures PELVIC US WHI US PELVIC NONOBSTETRIC REAL-TIME IMAGE COMPLETE Linda Rodriguez MD [address] [place] [address] [facility] [address] [place] [address] Referral ID Status Reason Start Date Expiration Date Visits Requested Visits Authorized [id number] Pending Review Auto-Generat ed Referral 07/04/2022 07/04/2023 1 1 [facility] for referral (narrative)* Diagnostic Procedure Only (Routine) - Pending Review Specialty Diagnoses / Procedures Referred By June t Referred To Contact [facility] Diagnoses Encounter for screening mammogram for breast cancer Procedures LEONIE SCREENING SCREENING MAMMOGRAPHY BI 2-VIEW BREAST INC Ty Conklin MD [address] [place] [address] [facility] [address] [place] [address] Referral ID Status Reason Start Date Expiration Date Visits Requested Visits Authorized [id number] Pending Review Auto-Generat ed Referral 09/10/2022 10/10/2023 1 1 [facility] for referral (narrative)* Diagnostic Procedure Only (Routine) - Pending Review Specialty Diagnoses / Procedures Referred By Contac t Referred To Contact [facility] Diagnoses Encounter for screening mammogram for breast cancer Procedures LEONIE SCREENING SCREENING MAMMOGRAPHY BI 2-VIEW BREAST INC CAD Ty Narayanan MD [address] [place] [address] [facility] [address] [place] [address] Referral ID Status Reason Start Date Expiration Date Visits Requested Visits Authorized [id number] Pending Review Auto-Generat ed Referral 08/19/2023 09/17/2024 1 1 [facility] for referral (narrative)No reason for referral information availableWThe [facility] Work Phone: Summary Purpose Family History Relationship Condition Age at Onset Recorded Date/T franklin Unknown Family History?- Unknown August 23 2:07pm Family History?- Unknown August 31, 2018 12:43pm Family History?Heart Disease Unknown August 31, 2018 12:43pm Family History?No pertinent history Unkno wn August 31, 2013 12:22pm Relationship Condition Age at Onset Recorded Date/T franklin father Myocardial infarction Unknown mother Myocardial infarction Unknown Advance Directives Advance Directive Response Recorded Date/ Time Advance Directives No May 01, 2015 5:54pm Living Will No January 02 1:07am Power of Biomass Production Manager No January 02, 2018 1:07am Advance Directive Response Recorded Date/ Time Advance Directives No May 01, 2015 4:54pm Living Will No January 02 12:07am Power of Biomass Production Manager No January 02, 2018 12:07am Advance Directive Response Recorded Date/ Time Advance Directives No May 01, 2015 5:54pm Living Will No November 07 3 10:10am Power of Biomass Production Manager No November 07, 2 023 10:10am Advance Directive Response Recorded Date/ Time Do you have a Healthcare Power of Biomass Production Manager? No November 09, 2024 1:22pm Advance Directives [...] Date cellulitis November 09, 2024 12 :32pm Chief Complaint Admit Date cellulitis November 09, 2024 12 :32pm WOUND November 14, 2024 9: 58am WOUND November 14, 2024 10 :56am Reason for Visit Admit Date Leg wound, right November 14, 2024 9: 58am Chief Complaint Admit Date cellulitis November 09, 2024 12 :32pm WOUND November 14, 2024 9: 58am WOUND November 14, 2024 10 :56am WOUND November 22, 2024 12:25pm RT LEG ULCER November 29, 2024 10:11am WOUND November 29, 2024 1:07pm WOUND December 06, 2024 12:14pm WOUND December 20, 2024 10:30am Reason for Visit Admit Date Leg wound, right November 14, 2024 9: 58am DDD (degenerative disc disease), lumbosa cral December 20, 2024 10:30am Dependent edema December 20, 2024 10:30am Left leg swelling December 20, 2024 10:30am Leg edema, left December 20, 2024 10:30am Leg edema, right December 20, 2024 10:30am Lipodermatosclerosis December 20 10:30am Lymphedema December 20, 2024 10:30am Right leg swelling December 20, 2024 10:30am Venous stasis dermatitis of both lower e xtremities December 20, 2024 10:30am Chronic venous insufficiency November 232024 10:30am History of cellulitis December 20 10:30am Morbid obesity December 20, 2024 10:30am Osteoarthritis December 20, 2024 10:30am Status post bilateral hip replacements S [facility]2024 10:30am Status post bilateral knee replacements December 20, 2024 10:30am Chief Complaint Admit Date cellulitis November 09, 2024 12 :32pm WOUND November 14, 2024 9: 58am WOUND November 14, 2024 10 :56am WOUND November 22, 2024 12:25pm RT LEG ULCER November 29, 2024 10:11am WOUND November 29, 2024 1:07pm WOUND December 06, 2024 12:14pm WOUND December 20, 2024 10:30am WOUND December 20, 2024 1:58pm WOUND December 27, 2024 10 :15am WOUND December 27, 2024 11 :44am Reason for Visit Admit Date Leg wound, right November 14, 2024 9: 58am DDD (degenerative disc disease), lumbosa cral December 20, 2024 10:30am Dependent edema December 20, 2024 10:30am Left leg swelling December 20, 2024 10:30am Leg edema, left December 20, 2024 10:30am Leg edema, right December 20, 2024 10:30am Lipodermatosclerosis December 20 10:30am Lymphedema December 20, 2024 10:30am Right leg swelling December 20, 2024 10:30am Venous stasis dermatitis of both lower e xtremities December 20, 2024 10:30am Chronic venous insufficiency November 232024 10:30am History of cellulitis December 20 10:30am Morbid obesity December 20, 2024 10:30am Osteoarthritis December 20, 2024 10:30am Status post bilateral hip replacements S te2024 10:30am Status post bilateral knee replacements December 20, 2024 10:30am DDD (degenerative disc disease), lumbosa cral December 27, 2024 10:15am Dependent edema December 27, 2024 10 :15am Left leg swelling December 27, 2024 10 :15am Leg edema, left December 27, 2024 10 :15am Leg edema, right December 27, 2024 10 :15am Lipodermatosclerosis December 27, 2024 1 0:15am Lymphedema December 27, 2024 10 :15am Right leg swelling December 27, 2024 10 :15am Venous stasis dermatitis of both lower e xtremities December 27, 2024 10:15am Chronic venous insufficiency December 10:15am History of cellulitis December 27, 2024 10:15am Morbid obesity December 27, 2024 10 :15am Osteoarthritis December 27, 2024 10 :15am Status post bilateral hip replacements O ctober 2024 10:15am Status post bilateral knee replacements December 27, 2024 10:15am Reason for Referral Specialty Diagnoses / Procedures Referred By Contac t Referred To Contact Diagnoses Insomnia, unspecified type Ty Narayanan MD [address] [place] [address] Referral ID Status Reason Start Date Expiration Date Visits Re quested Visits Authorized [id number] Closed 1 1 Additional Source Comments INFORMATION SOURCE (unrecogn ized section and content) DATE CREATED AUTHOR 09/14/2017 [facility] DATE CREATED AUTHOR AUTHOR'S ORGANIZ ATION 11/06/2024 [facility] DATE CREATED AUTHOR AUTHOR'S ORGANIZ ATION 01/10/2025 [facility] Source Comments (unrecognize d section and content) In the event this informatio n is protected by the Federal Confidentiality of Alcohol and Drug Abuse Patient Records regulations: The Federal rules restrict any use of the information to criminally investigate or prosecute any alcohol or drug abuse patient.[facility] the event this information is protected by the Federal Confidentiality of Alcohol and Drug Abuse Patient Records regulations: The Federal rules restrict any use of the information to criminally investigate or prosecute any alcohol or drug abuse patient.[facility] Hospital[facility] the event this information is protected by the Federal Confidentiality of Alcohol and Drug Abuse Patient Records regulations: The Federal rules restrict any use of the information to criminally investigate or prosecute any alcohol or drug abuse patient.[facility] Hospital[facility] the event this information is protected by the Federal Confidentiality of Alcohol and Drug Abuse Patient Records regulations: The Federal rules restrict any use of the information to criminally investigate or prosecute any alcohol or drug abuse patient.[facility] Hospital[facility] the event this information is protected by the Federal Confidentiality of Alcohol and Drug Abuse Patient Records regulations: The Federal rules restrict any use of the information to criminally investigate or prosecute any alcohol or drug abuse patient.[facility] Hospital[facility] the event this information is protected by the Federal Confidentiality of Alcohol and Drug Abuse Patient Records regulations: The Federal rules restrict any use of the information to criminally investigate or prosecute any alcohol or drug abuse patient.[facility] HospitalIn the event this information is protected by the Federal Confidentiality of Alcohol and Drug Abuse Patient Records regulations: The Federal rules restrict any use of the information to criminally investigate or prosecute any alcohol or drug abuse patient.[facility] HospitalIn the event this information is protected by the Federal Confidentiality of Alcohol and Drug Abuse Patient Records regulations: The Federal rules restrict any use of the information to criminally investigate or prosecute any alcohol or drug abuse patient.[facility] Hospital[facility] the event this information is protected by the Federal Confidentiality of Alcohol and Drug Abuse Patient Records regulations: The Federal rules restrict any use of the information to criminally investigate or prosecute any alcohol or drug abuse patient.[facility] HospitalIn the event this information is protected by the Federal Confidentiality of Alcohol and Drug Abuse Patient Records regulations: The Federal rules restrict any use of the information to criminally investigate or prosecute any alcohol or drug abuse patient.[facility] HospitalIn the event this information is protected by the Federal Confidentiality of Alcohol and Drug Abuse Patient Records regulations: The Federal rules restrict any use of the information to criminally investigate or prosecute any alcohol or drug abuse patient.[facility] HospitalIn the event this information is protected by the Federal Confidentiality of Alcohol and Drug Abuse Patient Records regulations: The Federal rules restrict any use of the information to criminally investigate or prosecute any alcohol or drug abuse patient.[facility] HospitalIn the event this information is protected by the Federal Confidentiality of Alcohol and Drug Abuse Patient Records regulations: The Federal rules restrict any use of the information to criminally investigate or prosecute any alcohol or drug abuse patient.[facility] HospitalIn the event this information is protected by the Federal Confidentiality of Alcohol and Drug Abuse Patient Records regulations: The Federal rules restrict any use of the information to criminally investigate or prosecute any alcohol or drug abuse patient.[facility] HospitalIn the event this information is protected by the Federal Confidentiality of Alcohol and Drug Abuse Patient Records regulations: The Federal rules restrict any use of the information to criminally investigate or prosecute any alcohol or drug abuse patient.[facility] HospitalIn the event this information is protected by the Federal Confidentiality of Alcohol and Drug Abuse Patient Records regulations: The Federal rules restrict any use of the information to criminally investigate or prosecute any alcohol or drug abuse patient.[facility] HospitalIn the event this information is protected by the Federal Confidentiality of Alcohol and Drug Abuse Patient Records regulations: The Federal rules restrict any use of the information to criminally investigate or prosecute any alcohol or drug abuse patient.[facility] HospitalIn the event this information is protected by the Federal Confidentiality of Alcohol and Drug Abuse Patient Records regulations: The Federal rules restrict any use of the information to criminally investigate or prosecute any alcohol or drug abuse patient.[facility] HospitalIn the event this information is protected by the Federal Confidentiality of Alcohol and Drug Abuse Patient Records regulations: The Federal rules restrict any use of the information to criminally investigate or prosecute any alcohol or drug abuse patient.[facility] HospitalIn the event this information is protected by the Federal Confidentiality of Alcohol and Drug Abuse Patient Records regulations: The Federal rules restrict any use of the information to criminally investigate or prosecute any alcohol or drug abuse patient.[facility] HospitalIn the event this information is protected by the Federal Confidentiality of Alcohol and Drug Abuse Patient Records regulations: The Federal rules restrict any use of the information to criminally investigate or prosecute any alcohol or drug abuse patient.[facility] HospitalIn the event this information is protected by the Federal Confidentiality of Alcohol and Drug Abuse Patient Records regulations: The Federal rules restrict any use of the information to criminally investigate or prosecute any alcohol or drug abuse patient.[facility] HospitalIn the event this information is protected by the Federal Confidentiality of Alcohol and Drug Abuse Patient Records regulations: The Federal rules restrict any use of the information to criminally investigate or prosecute any alcohol or drug abuse patient.[facility] HospitalIn the event this information is protected by the Federal Confidentiality of Alcohol and Drug Abuse Patient Records regulations: The Federal rules restrict any use of the information to criminally investigate or prosecute any alcohol or drug abuse patient.[facility] HospitalIn the event this information is protected by the Federal Confidentiality of Alcohol and Drug Abuse Patient Records regulations: The Federal rules restrict any use of the information to criminally investigate or prosecute any alcohol or drug abuse patient.[facility] HospitalIn the event this information is protected by the Federal Confidentiality of Alcohol and Drug Abuse Patient Records regulations: The Federal rules restrict any use of the information to criminally investigate or prosecute any alcohol or drug abuse patient.[facility] HospitalIn the event this information is protected by the Federal Confidentiality of Alcohol and Drug Abuse Patient Records regulations: The Federal rules restrict any use of the information to criminally investigate or prosecute any alcohol or drug abuse patient.[facility] HospitalIn the event this information is protected by the Federal Confidentiality of Alcohol and Drug Abuse Patient Records regulations: The Federal rules restrict any use of the information to criminally investigate or prosecute any alcohol or drug abuse patient.[facility] HospitalIn the event this information is protected by the Federal Confidentiality of Alcohol and Drug Abuse Patient Records regulations: The Federal rules restrict any use of the information to criminally investigate or prosecute any alcohol or drug abuse patient.[facility] HospitalIn the event this information is protected by the Federal Confidentiality of Alcohol and Drug Abuse Patient Records regulations: The Federal rules restrict any use of the information to criminally investigate or prosecute any alcohol or drug abuse patient.[facility] HospitalIn the event this information is protected by the Federal Confidentiality of Alcohol and Drug Abuse Patient Records regulations: The Federal rules restrict any use of the information to criminally investigate or prosecute any alcohol or drug abuse patient.[facility] HospitalIn the event this information is protected by the Federal Confidentiality of Alcohol and Drug Abuse Patient Records regulations: The Federal rules restrict any use of the information to criminally investigate or prosecute any alcohol or drug abuse patient.[facility] HospitalIn the event this information is protected by the Federal Confidentiality of Alcohol and Drug Abuse Patient Records regulations: The Federal rules restrict any use of the information to criminally investigate or prosecute any alcohol or drug abuse patient.[facility] Reason for Visit (unrecogniz ed section and content) Reason Comments 6 Month Exam Specialty Diagnoses / Procedures Referred By [facility] Referred To Contact Family Medicine / FAMILY MEDICINE Diagnoses Encounter for follow-up examination after completed treatment for conditions other than malignant neoplasm follow up Procedures 4C EST Self Bronwyn Solo APRN.GRADUATE TEACHING ASSOCIATE [address] [place] [address] Referral ID Status Reason Start Date Expiration Date Visits Requested Visits Authorized [id number] Waiting for Response Financial Clearance Required - OON Payor OON Notification Letter Clearance Not Met - Admin/Marketing Sales Manager/ Director Advise to Postpone/Resche dule or Not Proceed 01/16/20 22 04/15/2022 1 1 Reason Comments handicap parking script Reason Comments Results Labs Reason Onset Date Comments Refill Request 02/11/2022 Reason Comments Appointment Patient needs to tony l billing about O[facility] INS. She prefers to come to the [place] location. Reason Onset Date Comments Refill Request 06/12/2022 Reason Comments Post Menopausal Bleeding Specialty Diagnoses / Procedures Referred By [facility] Referred To Contact [facility] Diagnoses anxiety Procedures OFFICE/OUTPATIENT NEW HIGH MDM 60-74 MINUTES Teressa Collazo, LUCITA.GRADUATE TEACHING ASSOCIATE [address] [place] [address] Admin [facility] [address] [place] [address] Referral ID Status Reason Start Date Expiration Date V isits Requested Visits Authorized [id number] Closed Financial Clearance Required - OON Payor 06/25/2022 07/10/2022 1 1 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 Specialty Diagnoses / Procedures Referred By [facility] Referred To Contact [employer] Diagnoses PMB (postmenopausal bleeding) Procedures Evaluation of PMB, possible EMB Linda Rodriguez MD [address] [place] [address] Linda Rodriguez MD [address] [place] [address] Referral ID Status Reason Start Date Expiration Date V isits Requested Visits Authorized [id number] Closed Financial Clearance Required - OON Payor Patient Cleared INN/[facility] Payor Auth Obtained 07/16/2022 08/14/2022 1 1 Reason Comments Schedule Surgery Reason Comments Forms Rx fo pneumatic comp ression device from [employer]. Reason Onset Date Comments Refill Request 09/04/2022 [...] OFFICE/OUTPATIENT ESTABLISHED MOD MDM 30 MIN Bronwyn Solo, LUCITA.GRADUATE TEACHING ASSOCIATE [address] [place] [address] Phone: tel: fax: [facility] [address] [place] [address] Phone: tel: Referral ID Status Reason Start Date Expiration Date V isits Requested Visits Authorized [id number] Closed Financial Clearance Required - OON Payor 05/04/2024 03/22/2025 1 1 Reason Comments Patient Update Care Teams (unrecognized sec tion and content) Pt Skilled Relationship Specialty Start Date End Date Ty Narayanan MD [address] [place], [place] [address] PCP - General Family Practice 10/24/20 Pt Skilled Relationship Specialty Start Date End Date Ty Narayanan MD [address] [facility] [place] [address] PCP - General Family Practice 10/24/20 Pt Skilled Relationship Specialty Start Date End Date Ty Narayanan MD [address] [place] [address] PCP - General Family Medicine 01/13/22 Pt Skilled Relationship Specialty Start Date End Date Ty Narayanan MD [address] [place] [address] PCP - General Family Medicine 01/13/22 Pt Skilled Relationship Specialty Start Date End Date Ty Narayanan MD [address] [place] [address] PCP - General Family Medicine 01/13/22 Pt Skilled Relationship Specialty Start Date End Date Ty Narayanan MD [address] [place] [address] PCP - General Family Medicine 01/13/22 Team Status: Active Member Role Status Dates Dr. Lizzette Crowder III, MD Family Provider Active Dr. [...] Dr. Rafael Morales DO Attending Provider Active Pt Skilled Relationship Specialty Start Date End Date Ty Narayanan MD [address] [place] [address] PCP - General Family Medicine 01/13/22 Pt Skilled Relationship Specialty Start Date End Date Ty Narayanan MD [address] [place] [address] PCP - General Family Medicine 01/13/22 Pt Skilled Relationship Specialty Start Date End Date Ty Narayanan MD [address] [place] [address] PCP - General Family Medicine 01/13/22 Pt Skilled Relationship Specialty Start Date End Date Ty Narayanan MD [address] [place] [address] PCP - General Family Medicine 01/13/22 Pt Skilled Relationship Specialty Start Date End Date Ty Narayanan MD [address] [place] [address] PCP - General Family Medicine 01/13/22 Pt Skilled Relationship Specialty Start Date End Date Ty Narayanan MD [address] [place] [address] PCP - General Family Medicine 01/13/22 Pt Skilled Relationship Specialty Start Date End Date Ty Narayanan MD [address] [place] [address] PCP - General Family Medicine 01/13/22 Team Status: Inactive Member Role Status Dates Dr. Ty Narayanan MD Primary Care Provider Active Dr. Linda Cherry MD Attending Provider, Arnaldo caal Provider Active Pt Skilled Relationship Specialty Start Date End Date Ty Narayanan MD [address] [place] [address] PCP - General Family Medicine 01/13/22 Pt Skilled Relationship Specialty Start Date End Date Ty Narayanan MD [address] [place] [address] PCP - General Family Medicine 01/13/22 Pt Skilled Relationship Specialty Start Date End Date Ty Narayanan MD [address] [place] [address] PCP - General Family Medicine 01/13/22 Pt Skilled Relationship Specialty Start Date End Date Ty Narayanan MD [address] [place] [address] PCP - General Family Medicine 01/13/22 Pt Skilled Relationship Specialty Start Date End Date Ty Narayanan MD [address] [place] [address] PCP - General Family Medicine 01/13/22 Pt Skilled Relationship Specialty Start Date End Date Ty Narayanan MD [address] [place] [address] PCP - General Family Medicine 01/13/22 Pt Skilled Relationship Specialty Start Date End Date Ty Narayanan MD [address] [place] [address] PCP - General Family Medicine 01/13/22 Pt Skilled Relationship Specialty Start Date End Date Ty Narayanan MD [address] [place] [address] PCP - General Family Medicine 01/13/22 Pt Skilled Relationship Specialty Start Date End Date Ty Narayanan MD [address] [place] [address] PCP - General Family Medicine 01/13/22 Pt Skilled Relationship Specialty Start Date End Date Ty Narayanan MD [address] [place] [address] PCP - General Family Medicine 01/13/22 Pt Skilled Relationship Specialty Start Date End Date Ty Narayanan MD [address] [place] [address] PCP - General Family Medicine 01/13/22 Bronwyn Solo APRN.GRADUATE TEACHING ASSOCIATE [address] [place] [address] Sr. Director Product Management Family Medicine 02/28/24 Raghu Nuñez APRN.GRADUATE TEACHING ASSOCIATE [address] [place] [address] Sr. Director Product Management Family Medicine 03/08/24 Pt Skilled Relationship Specialty Start Date End Date Ty Narayanan MD [address] [place] [address] PCP - General Family Medicine 01/13/22 Bronwyn Solo APRN.GRADUATE TEACHING ASSOCIATE [address] [place] [address] Sr. Director Product Management Family Medicine 02/28/24 Raghu Nuñez APRN.GRADUATE TEACHING ASSOCIATE [address] [place] [address] Sr. Director Product Management Family Medicine 03/08/24 Pt Skilled Relationship Specialty Start Date End Date Ty Narayanan MD [address] [place] [address] PCP - General Family Medicine 01/13/22 Raghu Nuñez APRN.GRADUATE TEACHING ASSOCIATE [address] [place] [address] Sr. Director Product Management Family Medicine 03/08/24 Team Status: Active Member Role/Relationship Status Dates Dr. Ty Narayanan MD Primary Care Provider Active Team Status: Inactive Member Role/Relationship Status Dates Dr. Ty Narayanan MD Primary Care Provider Active Start: November 09, 2024 End: November 09, 2024 Dr. Philomena Zhu MD Emergency Provider Active S tart: November 09, 2024 End: November 09, 2024 Team Status: Inactive Member Role/Relationship Status Dates Dr. Ty Narayanan MD Primary Care Provider Active Start: November 09, 2024 End: November 09, 2024 Dr. Philomena Zhu MD Attending Provider Active S tart: November 09, 2024 End: November 09, 2024 Dr. Philomena Zhu MD Emergency Provider Active S tart: November 09, 2024 End: November 09, 2024 Team Status: Inactive Member Role/Relationship Status Dates Dr. Ty Narayanan MD Primary Care Provider Active Start: November 14, 2024 End: November 14, 2024 Dr. Miguel Angel Vargas MD Attending Provider Active Start: November 14, 2024 End: November 14, 2024 Dr. Philomena Zhu MD Referring Provider Active S tart: November 14, 2024 End: November 14, 2024 Team Status: Active Member Role/Relationship Status Dates Dr. Ty Narayanan MD Primary Care Provider Active Start: November 14, 2024 Dr. Miguel Angel Vargas MD Attending Provider Active Start: November 14, 2024 Dr. Miguel Angel Vargas MD Other Provider Active Star t: November 14, 2024 Dr. Philomena Zhu MD Referring Provider Active S tart: November 14, 2024 Team Status: Active Member Role/Relationship Status Dates Dr. Ty Narayanan MD Primary care physician Active Team Status: Inactive Member Role/Relationship Status Dates Dr. Ty Narayanan MD Primary care physician Active Start: November 09, 2024 End: November 09, 2024 Dr. Philomena Zhu MD Attending physician Active Start: November 09, 2024 End: November 09, 2024 Dr. Philomena Zhu MD Emergency Departmen t Physician Active Start: November 09, 2024 End: November 09, 2024 Team Status: Inactive Member Role/Relationship Status Dates Dr. Ty Narayanan MD Primary care physician Active Start: November 14, 2024 End: November 14, 2024 Dr. Miguel Angel Vargas MD Attending physician Active Start: November 14, 2024 End: November 14, 2024 Dr. Philomena Zhu MD Referring Provider Active S tart: November 14, 2024 End: November 14, 2024 Team Status: Active Member Role/Relationship Status Dates Dr. Ty Narayanan MD Primary care physician Active Start: November 14, 2024 Dr. Miguel Angel Vargas MD Attending physician Active Start: November 14, 2024 Dr. Miguel Angel Vargas MD Nurse Practitioner Active Start: November 14, 2024 Dr. Philomena Zhu MD Referring Provider Active S tart: November 14, 2024 Team Status: Active Member Role/Relationship Status Dates Dr. Ty Narayanan MD Primary care physician Active Start: November 22, 2024 Dr. Ty Narayanan MD Referring Provider Active Start: November 22, 2024 Dr. Binu Troncoso MD Attending physician Active Start: November 22, 2024 Dr. Binu Troncoso MD Nurse Practitioner Active Start: November 22, 2024 Team Status: Active Member Role/Relationship Status Dates Dr. Binu Troncoso MD Attending physician Active Start: November 29, 2024 Dr. Miguel Angel Vargas MD Referring Provider Active Start: November 29, 2024 Team Status: Active Member Role/Relationship Status Dates Dr. Ty Narayanan MD Primary care physician Active Start: November 29, 2024 Dr. Ty Narayanan MD Referring Provider Active Start: November 29, 2024 Dr. Binu Troncoso MD Attending physician Active Start: November 29, 2024 Dr. Binu Troncoso MD Nurse Practitioner Active Start: November 29, 2024 Team Status: Active Member Role/Relationship Status Dates Dr. Ty Narayanan MD Primary care physician Active Start: December 06, 2024 Dr. yT Narayanan MD Referring Provider Active Start: December 06, 2024 Dr. Binu Troncoso MD Attending physician Active Start: December 06, 2024 Dr. Binu Troncoso MD Nurse Practitioner Active Start: December 06, 2024 Team Status: Inactive Member Role/Relationship Status Dates Dr. Ty Narayanan MD Primary care physician Active Start: December 20, 2024 End: December 20, 2024 Dr. Ty Narayanan MD Referring Provider Active Start: December 20, 2024 End: December 20, 2024 Dr. Binu Troncoso MD Attending physician Active Start: December 20, 2024 End: December 20, 2024 Team Status: Active Member Role/Relationship Status Dates Dr. Ty Narayanan MD Primary care physician Active Start: November 14, 2024 Dr. Miguel Angel Vargas MD Attending physician Active Start: November 14, 2024 Dr. Miguel Angel Vargas MD Referring Provider Active Start: November 14, 2024 Dr. Miguel Angel Vargas MD Nurse Practitioner Active Start: November 14, 2024 Team Status: Active Member Role/Relationship Status Dates Dr. Ty Narayanan MD Primary care physician Active Start: December 20, 2024 Dr. Ty Narayanan MD Referring Provider Active Start: December 20, 2024 Dr. Binu Troncoso MD Attending physician Active Start: December 20, 2024 Dr. Binu Troncoso MD Nurse Practitioner Active Start: December 20, 2024 Team Status: Inactive Member Role/Relationship Status Dates Dr. Ty Narayanan MD Primary care physician Active Start: December 27, 2024 End: January 02, 2025 Dr. Ty Narayanan MD Referring Provider Active Start: December 27, 2024 End: January 02, 2025 Dr. Binu Troncoso MD Attending physician Active Start: December 27, 2024 End: January 02, 2025 Team Status: Active Member Role/Relationship Status Dates Dr. Ty Narayanan MD Primary care physician Active Start: December 27, 2024 Dr. Ty Narayanan MD Referring Provider Active Start: December 27, 2024 Dr. Binu Troncoso MD Attending physician Active Start: December 27, 2024 Dr. Binu Troncoso MD Nurse Practitioner Active Start: December 27, 2024 Goals (unrecognized section and content) Goals [...] BE BASED ON THE PRIMARY CLINICAL RECORDS. [facility]. provides no warranty or guarantee of the accuracy or completeness of information in this document.
--- NOTE | 2025-03-13 11:53 | STRESSREP ---
Stress Test Report Date: 1960 Procedure: Pharmacologic stress nuclear imaging study Indications: Dyspnea on exertion Consent: Per the patient Procedure: The patient underwent pharmacologic (Regadenoson 0.4mg ) evaluation with a peak heart rate of 100 beats per minute (63%predicted maximal heart rate) and a peak blood pressure of 144/80 mmHg. The baseline ECG demonstrated sinus rhythm. The peak pharmacologic ECG did not show any ischemic changes. Rare PVC noted. There was no complaint of chest discomfort during pharmacologic infusion or recovery. The patient was injected with 14.5 millicuries of technetium 99m Cardiolite and subsequently rest SPECT Cardiolite nuclear imaging was obtained in the horizontal long, vertical long, and short axis views. The patient underwent pharmacologic (Regadenoson) evaluation. The patient was injected with 45.8 millicuries of technetium 99m Cardiolite and subsequently stress SPECT Cardiolite nuclear imaging was obtained in the horizontal long, vertical long, and short axis views. A gated Cardiolite study at peak stress was obtained. The examination was stopped secondary to completion of protocol. Rest and stress SPECT Cardiolite nuclear imaging status post realignment, normalization, and attenuation correction demonstrate decreased perfusion of the anterior wall at rest which actually looks better on poststress images, suggestive of attenuation artifact. There is end systolic thickening and brightening. The gated Cardiolite study demonstrates myocardial thickening and inward wall motion. The reported LVEF is 64%. Impression: 1. Pharmacologic (Regadenoson) evaluation 2. Peak pharmacologic ECG with no ischemic changes. 3. No significant cardiac dysrhythmias noted. 5. Rest and stress SPECT Cardiolite nuclear imaging demonstrate relative uniform tracer uptake and myocardial perfusion appearing within normal limits. 6. The gated Cardiolite study reports an LVEF of 64%. This note was generated with [employer] software. It may contain incorrect words, spelling, and punctuation that were not noted in checking the note before signing.
== END | disposition home or self-care (01) ==
LOC: CVS 06:55
PROVIDERS: PCP Family Medicine
DX: R06.09 Other forms of dyspnea (principal)
CPT/HCPCS: 78452; 93017; A9500; J2785